=== PATIENT | female | born 1995 | race Caucasian/White ===

== ENCOUNTER → 2018-03-01 | Outpatient (CLI) | payer MEDICAID ==
[~2018-03-01] MED LIST: ACET325T38 PO; CLN150C PO; DIPH25TA82 PO; FAMO20TA5 PO; FERR325C PO; Ibuprofen PO; MEDR150D8 IM; METR500T PO; Mupirocin TOP; ONDA-42 SL; OSLT75C PO; PRE NATAL VIT; [UNRECOGNIZED DRUG - CODE] PO
--- NOTE | 2018-03-01 17:18 | Diagnostic Imaging Report ---
PROCEDURE: US OB SINGLE FETUS <14 WKS. TECHNIQUE: Multiple real-time grayscale images were obtained over the gravid uterus in various projections. INDICATION: Uncertain dates COMPARISON: There are no prior studies available for comparison. There is a gestational sac within the uterus containing a single live fetus. heart motion was noted and a rate of 167 bpm was recorded. The crown-rump length suggested the estimated gestational age is 10 weeks 1 day plus or minus one week. There were no obvious abnormalities identified. The amniotic fluid volume is within normal limits. At this time, it is not certain where the placenta will develop. There is no pelvic mass or free fluid collection identified. Neither ovary was visualized. IMPRESSION: 1. There is a single live fetus approximately 10 weeks 1 day gestation plus or minus one week. The EDC is 09/26/2018. 2. There were no obvious abnormalities identified. If a more sensitive evaluation of anatomy is desired, a followup exam in 8-10 weeks would be recommended. Dictated by: Dictated on workstation # [id number]
== END ==
LOC: RAD 14:48
PROVIDERS: ATTEND Family Medicine
DX: Z34.81 Encounter for supervision of other normal pregnancy, first trimester (principal); Z3A.10 10 weeks gestation of pregnancy
CPT/HCPCS: 76801

== ENCOUNTER 2018-07-08 17:19 | Outpatient (CLI) | payer MEDICAID ==
[2018-07-08 17:35] VITALS: BP 124/72
--- NOTE | 2018-07-08 17:39 | NUR ---
MYRIAM MORROW presented to unit via ambulation from ED, accompanied by s/o and son, with c/o fainting @ home around 1630 today. Pt to bed. EFVITALY and SANDRAO applied, VS taken. Pt. oriented to bed controls, call light, TV, heat, and A/C controls. Addendum: 07/08/18 at 1809 by JOANNE WHITTINGTON RN pt reports passing out @ home, hitting back, buttocks and head. denies hitting abd. s/o reports "watching her hit her head a little bit". pt was making lunch when fainting spell occurred. Addendum: 07/08/18 at 181 by JOANNE WHITTINGTON RN correction to admission time: pt presented to OB @ 5683.
--- NOTE | 2018-07-08 17:46 | NUR ---
on [facility] unit. update given on pt's presenting c/o's. orders received to d/c to patient to ER after monitor tracing appropriate for 28 4/7 weeks gestation obtained.
[2018-07-08 17:55] VITALS: BP 14/64
[2018-07-08 18:10] VITALS: BP 14/64
--- NOTE | 2018-07-08 18:11 | NUR ---
this RN discussed with pt rising up from sitting position slowly and eating frequent small meals. pt reports not eating lunch today & occasionally gets "dizzy" when standing up from sitting position.
--- NOTE | 2018-07-08 18:20 | NUR ---
monitors dc'd. pt dismissed to ED for evaluation. pt ambulated with s.o. and son @ side. pt stable upon dismissal.
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
--- NOTE | 2018-07-25 15:41 | Physician Query-Final Dx ---
KAREN BARNES 07/25/18 1541: Final Diagnosis Give Final Diagnosis Please give Final Diagnosis FRED HURTADO MD 07/26/18 1534: Final Diagnosis Give Final Diagnosis Fall in . KAREN BARNES Jul 25, 2018 15:41 FRED HURTADO MD Jul 26, 2018 15:34
== END 2018-07-08 18:20 | disposition home or self-care (01) ==
LOC: WSo 17:19 → LDRP 17:19 → WSo 18:20
PROVIDERS: ATTEND Family Medicine
DX: Z04.3 Encounter for examination and observation following other accident (principal)
CPT/HCPCS: 99212

== ENCOUNTER 2018-07-08 18:25 | Emergency (ER) | payer BC, MEDICAID ==
[~2018-07-08] VITALS: Ht 142.2 cm; Wt 68.0 kg
--- OUTSIDE RECORDS SUMMARY | 2018-07-08 18:31 | XMS REPORT ---
Author Author ROBERTO FIGUEROA [facility] Address [address] [place] [address] Care Team Providers Care Sand Slinger Operator Name Role Phone ROBERTO FIGUEROA Unavailable PROBLEMS Type Condition ICD9-CM Code [id number] Code Onset Dates Condition Status SNOMED Code Problem Bipolar disorder, unspecified F31.9 Active [id number] ALLERGIES No Information ENCOUNTERS Encounter Location Date Diagnosis [facility] [id number] [place] [address] 28192- 4526 Apr, [facility] [id number] [place] [address] 49448- 9997 Apr, Second trimester Z34.92 and 19 weeks gestation of Z3A.19 [facility] [id number] [place] [address] 30584 -9981 Apr, Acute nasopharyngitis J00 and Sore throat J02.9 [facility] [id number] [place] [address] 89455- 5659 Apr, [facility] [id number] [place] [address] 16142- 7080 Apr, [facility] [id number] [place] [address] 40746- 8488 Apr, [facility] [id number] [place] [address] 81409- 0516 Feb, First trimester Z34.91 and 10 weeks gestation of Z3A.10 [facility] [id number] [place] [address] 13275- 2110 Jan, [facility] [id number] [place] [address] 52285- 8741 Jan, [place] [id number] [place] [address] 03191- 3767 17 Jan, 2018 Normal in multigravida Z34.80 and 9 weeks gestation of Z3A.09 [facility] [id number] [place] [address] 02992- 8624 07 Jan, 2018 [place] [address] 81993- 4906 05 Jan, 2018 Encounter for test, result unknown Z32.[address] 68397- 0622 September, History of fainting spells of unknown cause Z91.89 [place] [address] 88623- 1651 Aug, Yeast infection involving the vagina and surrounding area B37.3 ; Bipolar disorder, unspecified F31.9 and Trichomonas vaginalis infection A59.9 [facility] [facility] [id number] [place] [address] 87259- 3970 Jun, Bipolar disorder, unspecified F31.[address] 69281- 9508 Jun, Encounter for surveillance of injectable contraceptive Z30.42 and Bipolar disorder, unspecified F31.9 [id number] [place] [address] 46327- 4879 May, Encounter for Depo-Provera contraception Z30.42 [facility] [id number] [place] [address] 49910 -3807 Apr, Syncope, unspecified syncope type R55 [place] [id number] [place] [address] 92151- 3080 Mar, Bipolar disorder, unspecified F31.9 and High risk medication use Z79.899 [place] [address] 27762- 9840 Feb, [facility] [address] [place] [address] 91933- 0696 Feb, Encounter for Depo-Provera contraception Z30.42 [facility] [id number] [place] [address] 44205- 9585 Nov, Encounter for Depo-Provera contraception Z30.42 [facility] [address] 31791- 3551 September, [facility] [address] 17610- 2438 Aug, [facility] [address] 26892- 1177 Aug, Late period N92.6 ; STD exposure Z20.2 ; control counseling Z30.09 and Encounter for Depo-Provera contraception Z30.42 [facility] [id number] [place] [address] 82679 -2144 Jul, Body aches R52 ; Influenza A J10.1 ; Impacted cerumen of left ear H61.22 and Acute serous otitis media of left ear, recurrence not specified H65.02 [facility] [id number] [place] [address] 49168- 6173 May, [facility] [id number] [place] [address] 97706- 7431 Apr, Encounter for female control Z30.019 ; Encounter for Depo-Provera contraception Z30.42 and Well woman exam Z01.419 [facility] [id number] [place] [address] [id number] Feb, Dental examination Z01.20 [facility] [address] [id number] Feb, Dental caries K02.9 [facility] [id number] [place] [address] [id number] Feb, Dental examination Z01.20 [facility] [id number] [place] [address] 40007 -5798 Dec, Bilateral impacted cerumen H61.23 ; Dizziness R42 and Nausea R11.0 [facility] [id number] [place] [address] 18028- 9786 Dec, Encounter for Depo-Provera contraception Z30.42 [facility] [address] 13194- 9414 Oct, Bipolar affective disorder, currently depressed, moderate F31.32 [place] [address] 46705- 9423 September, Bipolar disorder, unspecified F31.9 [place] [id number] [place] [address] 76713- 1265 September, Bipolar disorder, unspecified F31.9 [place] [address] 38174- 1556 September, Bipolar disorder, unspecified F31.9 [place] [id number] [place] [address] 52934- 0483 September, Encounter for Depo-Provera contraception Z30.42 [facility] [id number] [place] [address] 20383- 5567 Aug, Bipolar disorder, unspecified F31.9 [place] [id number] [place] [address] 16114- 7025 Jun, Encounter for Depo-Provera contraception Z30.42 [place] [facility] [id number] [place] [address] 67504- 0531 Apr, URI (upper respiratory infection) J06.9 [facility] [id number] [place] [address] 56527- 2068 Mar, Encounter for Depo-Provera contraception Z30.42 [place] [address] 35553- 8917 Mar, [facility] [id number] [place] [address] 406095- 6013 Mar, Generalized anxiety disorder F41.1 and Major depressive disorder, recurrent episode, moderate F33.1 [facility] [id number] [place] [address] 536035- 5261 Jan, Esophageal reflux 530.81 ; Depression 311 and Anxiety 300.00 [facility] [id number] [place] [address] 03598- 5717 Dec, Depo-Provera contraceptive status V25.49 [facility] [id number] [place] [address] 814262- 3092 Dec, test negative V72.41 [facility] [id number] [place] [address] 47467- 8692 Oct, [facility] [id number] [place] [address] 26033- 3901 Oct, [facility] [id number] [place] [address] 35294- 6367 September, [facility] [id number] [place] [address] 48933- 4937 September, [facility] [id number] [place] [address] 34026- 5405 September, [facility] [id number] [place] [address] 03717- 0590 September, [facility] [address] [place] [address] 42604- 0174 September, [facility] [id number] [place] [address] 26529- 8881 September, [facility] [id number] [place] [address] 588979- 8657 September, [facility] [id number] [place] [address] 17436- 5240 September, Other general counseling and advice for contraceptive management V25.09 [facility] [address] [id number], [place] [address]- 2177 September, [facility] [address] [id number], [place] [address]- 1946 September, [facility] [address] [facility] [id number], [place] [address]- 4853 September, [facility] [address] [id number], [place] [address]- 4777 September, [facility] [address] [facility] [id number][place] 9996 29 Aug, 2014 [facility] [address] [facility] [id number], [place] [address]- 1839 28 Aug, 2014 [facility] [address] [id number], [place] [address]- 8043 14 Aug, 2014 [facility] [address] [facility] [id number], [place] [address]- 0934 Aug, [facility] [address] [facility] [id number], [place] [address]- 5108 27 Jul, 2014 [facility] [address] [facility] [id number], [place] [address]- 4986 27 Jul, 2014 [facility] [address] [facility] [id number], [place] [address]- 8704 20 Jul, 2014 [facility] [address] [id number], [place] [address]- 4786 19 Jul, 2014 [facility] [address] [facility] [id number], [place] [address]- 3424 19 Jul, 2014 [facility] [address] [facility] [id number][place] 8121 18 Jul, 2014 [facility] [address] [facility] [id number] 7431 Jul, [facility] [place] [facility] [address] [id number] [place] [address]- 9891 Jun, 2014 [facility] [place] [facility] [address] [id number] [place] [address]- 5956 Jun, 2014 [facility] [place] [facility] [address] [id number] [place] [address]- 0532 Jun, 2014 [facility] [place] [facility] [address] [id number] [place] [address]- 4653 Jun, 2014 [facility] [place] [facility] [address] [id number] [place] [address]- 5283 Jun, [facility] [place] [facility] [address] [id number] [place] [address]- 3508 Jun, [facility] [place] [facility] [address] [facility] [id number] [place] [address]- 9629 May, [facility] [place] [facility] [address] [id number] [place] [address]- 5916 May, [facility] [place] [facility] [address] [id number] [place] [address]- 1185 Apr, [facility] [place] [facility] [address] [id number] [place] [address]- 5143 Apr, [facility] [place] [facility] [address] [facility] [id number] [place] [address]- 7437 Apr, [facility] [place] [facility] [address] [id number] [place] [address]- 5591 Apr, [facility] [place] [facility] [address] [id number] [place] [address]- 8821 Apr, [facility] [place] [facility] [address] [facility] [id number] [place] [address]- 5596 Apr, [facility] [place] [facility] [address] [facility] [id number] [place] [address]- 2454 Mar, [facility] [place] [facility] [address] [id number] [place] [address]- 6190 Mar, [facility] [place] [facility] [address] [id number] [place] [address]- 5919 Mar, [facility] [place] [facility] [address] [id number] [place] [address]- 0857 Mar, [facility] [place] [facility] [address] [id number] [place] [address]- 3354 Mar, [facility] [place] [facility] [address] [id number] [place] [address]- 5697 Feb, [facility] [place] [facility] [address] [id number] [place] [address]- 1312 Feb, [facility] [place] [facility] [address] [id number] [place] [address]- 5395 Feb, [facility] [place] [facility] [address] [id number] [place] [address]- 6936 Feb, [facility] [place] [facility] [address] [id number] [place] [address]- 5446 Feb, [facility] [place] [facility] [address] [id number] [place] [address]- 3742 16 Feb, 2014 [facility] [place] [facility] [address] [id number] [place] [address]- 9148 16 Feb, 2014 [facility] [place] [facility] [address] [id number] [place] [address]- 2243 16 Feb, 2014 [facility] [place] [facility] [address] [id number] [place] [address]- 8932 05 Sep, 2013 [facility] [place] [facility] [address] [id number] [place] [address]- 8021 05 Sep, 2013 [facility] [place] [facility] [address] [id number] [place] [address]- 2275 05 Sep, 2013 [facility] [place] [facility] [address] [id number] [place] [address]- 3314 Jan, [facility] [place] [facility] [address] [id number] [place] [address]- 1315 Jan, [facility] [place] [facility] [address] [id number] [place] [address]- 0686 Jan, [facility] [place] [facility] [address] [id number] [place] [address]- 7396 Jan, [facility] [place] [facility] [address] [id number] [place] [address]- 7242 Jan, [facility] [place] [facility] [address] [id number] [place] [address]- 6754 Dec, [facility] [place] [facility] [address] [id number] [place] [address]- 7997 Dec, [facility] [place] [facility] [address] [id number] [place] [address]- 3315 Dec, [facility] [place] [facility] [address] [id number] [place] [address]- 9601 Dec, [facility] [place] [facility] [address] [id number] [place] [address]- 6123 Dec, [facility] [place] [facility] [address] [id number] [place] [address]- 0301 Dec, [facility] [place] [facility] [address] [id number] [place] [address]- 6793 Dec, [facility] [place] [facility] [address] [id number] [place] [address]- 4756 Dec, [facility] [place] [facility] [address] [id number] [place] [address]- 6567 Dec, [facility] [place] [facility] [address] [id number] [place] [address]- 2603 Dec, [facility] [place] [facility] [address] [id number] [place] [address]- 4314 Dec, [facility] [place] [facility] [address] [id number] [place] [address]- 6323 Dec, [facility] [place] [facility] [address] [id number] [place] [address]- 6332 Dec, [facility] [place] [facility] [address] [id number] [place] [address]- 9240 Dec, [facility] [place] [facility] [address] [id number] [place] [address]- 9204 Dec, [facility] [place] [facility] [address] [id number] [place] [address]- 9868 Dec, [facility] [place] [facility] [address] [id number] [place] [address]- 6229 Dec, [facility] [place] [facility] [address] [id number] [place] [address]- 1593 Nov, [facility] [place] [facility] [address] [id number] [place] [address]- 3933 Nov, [facility] [place] [facility] [address] [id number] [place] [address]- 9869 Nov, [facility] [place] [facility] [address] [id number] [place] [address]- 5611 Nov, [facility] [place] [facility] [address] [id number] [place] [address]- 8283 Nov, [facility] [place] [facility] [address] [id number] [place] [address]- 2977 Nov, [facility] [place] [facility] [address] [id number] [place] [address]- 4929 Nov, [facility] [place] [facility] [address] [id number] [place] [address]- 0443 Nov, [facility] [place] [facility] [address] [id number] [place] [address]- 3036 Nov, [facility] [place] [facility] [address] [id number] [place] [address]- 7099 Oct, [facility] [place] [facility] [address] [id number] [place] [address]- 1678 30 Oct, 2013 [facility] [place] [facility] [address] [id number] [place] [address]- 6792 Oct, [facility] [place] [facility] [address] [id number] [place] [address]- 3832 Oct, [facility] [place] [facility] [address] [id number] [place] [address]- 8502 Oct, [facility] [place] [facility] [address] [id number] [place] [address]- 4862 Oct, [facility] [place] [facility] [address] [id number] [place] [address]- 6316 Oct, [facility] [place] [facility] [address] [id number] [place] [address]- 4998 Oct, [facility] [place] [facility] [address] [id number] [place] [address]- 5766 Oct, [facility] [place] [facility] [address] [id number] [place] [address]- 7922 Oct, [facility] [place] [facility] [address] [id number] [place] [address]- 5829 September, [facility] [place] [facility] [address] [id number] [place] [address]- 4458 September, [facility] [place] [facility] [address] [id number] [place] [address]- 6000 September, [facility] [place] [facility] [address] [id number] [place] [address]- 0960 September, [facility] [place] [facility] [address] [id number] [place] [address]- 2441 Aug, [facility] [place] [facility] [address] [id number] [place] [address]- 4097 Aug, [facility] [place] [facility] [address] [id number] [place] [address]- 4253 Aug, [facility] [place] [facility] [address] [id number] [place] [address]- 3303 Aug, [facility] [place] [facility] [address] [id number] [place] [address]- 1868 Aug, [facility] [place] [facility] [address] [id number] [place] [address]- 2809 Aug, [facility] [place] [facility] [address] [id number] [place] [address]- 1762 Aug, [facility] [place] [facility] [address] [id number] [place] [address]- 4204 Aug, [facility] [place] [facility] [address] [id number] [place] [address]- 0696 Aug, [facility] [place] [facility] [address] [id number] [place] [address]- 4329 Aug, [facility] [place] [facility] [address] [id number] [place] [address]- 4448 Aug, [facility] [place] [facility] [address] [id number] [place] [address]- 9023 Jul, [facility] [place] [facility] [address] [id number] [place] [address]- 7927 Jul, [facility] [place] [facility] [address] [id number] [place] [address]- 1918 Jul, [facility] [place] [facility] [address] [id number] [place] [address]- 9627 Jul, [facility] [place] [facility] [address] [id number] [place] [address]- 1715 Jul, [facility] [place] [facility] [address] [id number] [place] [address]- 2693 Jul, [facility] [place] [facility] [address] [id number] [place] [address]- 6719 Jun, [facility] [place] [facility] [address] [id number] [place] [address]- 5740 Jun, [facility] [place] [facility] [address] [id number] [place] [address]- 4449 Jun, 2013 [facility] [place] [facility] [address] [id number] [place] [address]- 2546 Jun, 2013 [facility] [place] [facility] [address] [id number] [place] [address]- 3794 Jun, 2013 [facility] [place] [facility] [address] [id number] [place] [address]- 5855 Jun, [facility] [place] [facility] [address] [facility] [id number] [place] [address]- 1659 Jun, [facility] [place] [facility] [address] [facility] [id number] [place] [address]- 0844 Jun, [facility] [place] [facility] [address] [facility] [id number] [place] [address]- 1977 Jun, 2013 [facility] [place] [facility] [address] [facility] [id number] [place] [address]- 1591 Jun, [facility] [place] [facility] [address] [facility] [id number] [place] [address]- 0955 Jun, [facility] [place] [facility] [address] [facility] [id number] [place] [address]- 7706 Jun, [facility] [place] [facility] [address] [facility] [id number], [place] [address]- 8875 Jun, [facility] [place] [facility] [address] [facility] [id number] [place] [address]- 4041 Jun, [facility] [place] [facility] [address] [facility] [id number] [place] [address]- 2738 Jun, [facility] [place] [facility] [address] [facility] [id number], [place] [address]- 7483 Jun, 2013 [facility] [place] [facility] [address] [facility] [id number], [place] [address]- 9087 Jun, [facility] [place] [facility] [address] [id number] [place] [address] Jun, [facility] [place] [facility] [address] [id number] [place] [address] Jun, [facility] [place] [facility] [address] [id number] [place] [address] Jun, [facility] [place] [facility] [address] [id number] [place] [address] Jun, [facility] [place] [facility] [address] [id number] [place] [address] Jun, [facility] [place] [facility] [address] [id number] [place] [address] May, [facility] [place] [facility] [address] [id number] [place] [address] May, [facility] [place] [facility] [address] [id number] [place] [address] May, [facility] [place] [facility] [address] [id number] [place] [address] May, [facility] [place] [facility] [address] [id number] [place] [address] May, [facility] [place] [facility] [address] [id number] [place] [address] May, [facility] [place] [facility] [address] [id number] [place] [address] May, [facility] [place] [facility] [address] [id number] [place] [address] May, [facility] [place] [facility] [address] [id number] [place] [address] May, [facility] [place] [facility] [address] [id number] [place] [address] May, [facility] [place] [facility] [address] [id number] [place] [address] 14 May, 2013 [facility] [address] [id number] [place] [address] May, [facility] [address] [id number] [place] [address] May, [facility] [address] [id number] [place] [address] May, [facility] [address] [id number] [place] [address] Apr, [facility] [address] [id number] [place] [address] Apr, [facility] [address] [id number] [place] [address] Apr, [facility] [address] [id number] [place] [address] Apr, [facility] [address] [id number] [place] [address] Apr, [facility] [address] [id number] [place] [address] Apr, [facility] [address] [id number] [place] [address] Apr, [facility] [address] [id number] [place] [address]661 Apr, [facility] [place] [facility] [address] [id number] [place] [address] Mar, [facility] [place] [facility] [address] [id number] [place] [address] Mar, [facility] [address] [id number] [place] [address] Mar, [facility] [place] [facility] [address] [id number], [place] [address] Mar, [facility] [place] [facility] [address] [id number] [place] [address] Feb, [facility] [place] [facility] [address] [id number], [place] [address] Feb, [facility] [place] [facility] [address] [id number] [place] [address] Feb, [facility] [place] [facility] [address] [id number], [place] [address] Feb, [facility] [place] [facility] [address] [id number] [place] [address] Feb, [facility] [place] [facility] [address] [id number] [place] [address] Feb, [facility] [place] [facility] [address] [facility] [id number], [place] [address] Feb, [facility] [place] [facility] [address] [id number], [place] [address] Feb, [facility] [place] [facility] [address] [id number], [place] [address] Jan, [facility] [place] [facility] [address] [facility] [id number], [place] [address] Oct, [facility] [place] [facility] [address] [id number], [place] [address] September, [facility] [place] [facility] [address] [id number], [place] [address] Jun, [facility] [place] [facility] [address] [id number], [place] [address] Jun, [facility] [place] [facility] [address] [facility] [id number], [place] [address] Jun, [facility] [place] [facility] [address] [facility] [id number], [place] [address] Jun, [facility] [place] [facility] [address] [id number] [place] [address] May, [facility] [place] [facility] [address] [id number] [place] [address] Apr, [facility] [place] [facility] [address] [id number] [place] [address] Apr, [facility] [place] [facility] [address] [id number] [place] [address] Apr, [facility] [place] [facility] [address] [id number] [place] [address] Apr, [facility] [place] [facility] [address] [id number] [place] [address] Mar, [facility] [place] [facility] [address] [id number] [place] [address] Mar, [facility] [place] [facility] [address] [id number] [place] [address] Jan, [facility] [place] [facility] [address] [id number] [place] [address] Dec, [facility] [place] [facility] [address] [id number] [place] [address] Dec, [facility] [place] [facility] [address] [id number] [place] [address] Dec, [facility] [place] [facility] [address] [id number] [place] [address] Dec, [facility] [place] [facility] [address] [id number] [place] [address] Nov, [facility] [place] [facility] [address] [id number] [place] [address] Nov, [facility] [place] [facility] [address] [id number] [place] [address] Nov, [facility] [place] [facility] [address] [id number] [place] [address] Nov, [facility] [address] [id number] [place] [address] Aug, [facility] [place] [facility] [address] [facility] [id number] [place] [address] Aug, [facility] [place] [facility] [address] [id number] [address] Jul, [facility] [place] [facility] [address] [facility] [id number] [place] [address] 1339 Jul, [facility] [place] [facility] [address] [facility] [id number] [place] [address] 8780 Jul, [facility] [place] [facility] [address] [facility] [id number] [place] [address] Jul, [facility] [place] [facility] [id number] [place] [address] Jun, [facility] [place] [facility] [address] [facility] [id number] [place] [address] Jun, [facility] [place] [facility] [address] [id number] [place] [address] 14 Jun, 2011 [facility] [place] [facility] [address] [id number] [place] [address] Jun, [facility] [place] [facility] [id number] [address] Jun, [facility] [place] [facility] [address] [facility] [id number], [place] [address] Jun, [facility] [place] [facility] [address] [id number] [place] [address]- [address] 04 Jun, 2011 [facility] [place] [facility] [address] [facility] [id number] [place] [address] Jun, [facility] [place] [facility] [id number] [address] Jun, [facility] [place] [facility] [address] [id number] [place] [address]27 May, [facility] [place] [facility] [address] [id number] [place] [address] May, [facility] [place] [facility] [address] [id number] [place] [address] May, [facility] [place] [facility] [address] [id number] [place] [address] 5047 May, [facility] [place] [facility] [address] [id number] [place] [address] 8748 May, [facility] [place] [facility] [address] [id number] [place] [address] 68[address] Mar, [facility] [place] [facility] [address] [id number] [place] [address] 6328 Mar, [facility] [place] [facility] [address] [id number] [place] [address] Mar, [facility] [place] [facility] [address] [id number] [place] [address] Mar, [facility] [place] [facility] [address] [id number] [place] [address] Mar, [facility] [place] [facility] [address] [id number] [place] [address] 8730 Feb, [facility] [place] [facility] [address] [id number] [place] [address]753 Feb, [facility] [place] [facility] [address] [id number] [place] [address] 9351 Dec, [facility] [place] [facility] [address] [id number] [place] [address] 9165 Apr, [facility] [place] [facility] [address] [id number] [place] [address]- 7870 Apr, [facility] [place] [facility] [address] [id number] [place] [address]- [address] 03 Apr, 2010 [facility] [address] [id number] [place] [address] 29 Feb, 2010 [facility] [place] [facility] [address] [id number], [place] [address] 11 Feb, 2010 [facility] [place] [facility] [address] [id number] [place] [address]- 4481 11 Jul, 2009 [facility] [place] [facility] [address] [id number], [place] [address] 15 Jun, 2009 [facility] [place] [facility] [address] [id number] [place] [address] 1764 May, [facility] [place] [facility] [address] [id number], [place] [address] Apr, [facility] [place] [facility] [address] [id number], [place] [address] Apr, [facility] [place] [facility] [address] [id number], [place] [address] Apr, [facility] [address] [id number], [place] [address] Mar, [facility] [place] [facility] [address] [id number], [place] [address] Jul, [facility] [place] [facility] [address] [id number], [place] [address] 16 Jun, 2008 [facility] [place] [facility] [address] [id number], [place] [address] 15 Jan, 2008 [facility] [place] [facility] [address] [id number], [place] [address] 10 Oct, 2007 [facility] [place] [facility] [address] [id number], [place] [address] 13 Sep, 2007 [facility] [place] [facility] [address] [id number], [place] [address] 11 Nov, 2006 [facility] [place] [facility] [address] [facility] [id number] [place] [address] September, [facility] [address] [facility] [id number] [place] [address]- [address] Dec, [facility] [address] [facility] [id number] [place] [address]- [address] Mar, IMMUNIZATIONS No Known Immunizations SOCIAL HISTORY Never Assessed REASON FOR VISIT OB 4wk f/u, ob urine dip in second trimester-awoods PLAN OF CARE Activity Details Follow Up 4 Weeks Reason: VITAL SIGNS Height 59 in 2018-05-08 Weight 140.7 lbs 2018-05-08 Temperature 98.7 degrees Fahrenheit 2018-05-08 Heart Rate 84 bpm 2018-05-08 Respiratory Rate 20 2018-05-08 BMI 28.418 kg/m2 2018-05-08 Blood pressure systolic 108 mmHg 2018-05-08 Blood pressure diastolic 70 mmHg 2018-05-08 MEDICATIONS Medication Instructions Dosage Frequency Start Date End Date Duration Status Active RESULTS Name Result Date Reference Range UA OB DIP (IN HOUSE) 2018-05-08 Glucose negative Protein trace PROCEDURES Procedure Date Ordered Result Body Site URINE-NO MICRO May 08, 2018 INSTRUCTIONS MEDICATIONS ADMINISTERED No Known Medications MEDICAL (GENERAL) HISTORY Type Description Date Medical History depression Medical History anxiety disorder Medical History Major depressive disorder, recurrent episode, moderate Medical History Suicide and self-inflicted injury by cutting and piercing instrument Medical History Suicide and self-inflicted injury by cutting and piercing instrument Medical History Herpes simplex without mention of complication Surgical History tonsillectomy age 3 Hospitalization History cellulitis of lip 06/2014
--- OUTSIDE RECORDS SUMMARY | 2018-07-08 18:31 | XMS REPORT ---
Author Author ROBERTO FIGUEROA [facility] Address [address] [place] [address] Care Team Providers Care Medical Artist Name Role Phone ROBERTO FIGUEROA Unavailable PROBLEMS Type Condition ICD9-CM Code [id number] Code Onset Dates Condition Status SNOMED Code Problem Bipolar disorder, unspecified F31.9 Active [id number] ALLERGIES No Information ENCOUNTERS Encounter Location Date Diagnosis [facility] [id number] [place] [address] 27583- 8157 Apr, Second trimester Z34.92 and 19 weeks gestation of Z3A.19 [facility] [id number] [place] [address] 64455- 7810 18 Apr, 2018 Second trimester Z34.92 and 19 weeks gestation of Z3A.19 [facility] [id number] [place] [address] 17242 -0618 Apr, Acute nasopharyngitis J00 and Sore throat J02.9 [facility] [id number] [place] [address] 07243- 6256 Apr, [facility] [id number] [place] [address] 66447- 0879 Apr, [facility] [id number] [place] [address] 13266- 4656 Apr, [facility] [id number] [place] [address] 80424- 1272 Feb, First trimester Z34.91 and 10 weeks gestation of Z3A.10 [facility] [id number] [place] [address] 18750- 8616 Jan, [facility] [id number] [place] [address] 67738- 5024 Jan, [facility] [address] 39749- 9337 17 Jan, 2018 Normal in multigravida Z34.80 and 9 weeks gestation of Z3A.09 [facility] [address] 64467- 4440 07 Jan, 2018 [facility] [address] 46799- 0751 05 Jan, 2018 Encounter for test, result unknown Z32.[address] 39756- 5630 September, History of fainting spells of unknown cause Z91.89 [facility] [address] 32231- 5588 Aug, Yeast infection involving the vagina and surrounding area B37.3 ; Bipolar disorder, unspecified F31.9 and Trichomonas vaginalis infection A59.9 [facility] [address] 20645- 0953 Jun, Bipolar disorder, unspecified F31.9 [facility] [id number] [place] [address] 47788- 3972 Jun, Encounter for surveillance of injectable contraceptive Z30.42 and Bipolar disorder, unspecified F31.9 [facility] [id number] [place] [address] 24968- 8204 May, Encounter for Depo-Provera contraception Z30.42 [facility] [id number] [place] [address] 49305 -7405 Apr, Syncope, unspecified syncope type R55 [facility] [id number] [place] [address] 10705- 7444 Mar, Bipolar disorder, unspecified F31.9 and High risk medication use Z79.899 [facility] [address] [address] 2356 Feb, [facility] [id number] [place] [address] 92905- 0578 Feb, Encounter for Depo-Provera contraception Z30.42 [facility] [id number] [place] [address] 79581- 1412 Nov, Encounter for Depo-Provera contraception Z30.42 [facility] [id number] [place] [address] 08779- 7642 September, [facility] [id number] [place] [address] 10564- 0037 Aug, [facility] [id number] [place] [address] 54310- 0955 Aug, Late period N92.6 ; STD exposure Z20.2 ; control counseling Z30.09 and Encounter for Depo-Provera contraception Z30.42 [facility] [id number] [place] [address] 13810 -1792 Jul, Body aches R52 ; Influenza A J10.1 ; Impacted cerumen of left ear H61.22 and Acute serous otitis media of left ear, recurrence not specified H65.02 [facility] [id number] [place] [address] 08790- 8009 May, [facility] [id number] [place] [address] 58810- 6612 Apr, Encounter for female control Z30.019 ; Encounter for Depo-Provera contraception Z30.42 and Well woman exam Z01.419 [facility] [id number] [place] [address] [id number] Feb, Dental examination Z01.20 [facility] [id number] [place] [address] [id number] Feb, 2016 Dental caries K02.9 [facility] [address] [id number] Feb, Dental examination Z01.20 [facility] [id number] [place] [address] 21958 -3160 Dec, Bilateral impacted cerumen H61.23 ; Dizziness R42 and Nausea R11.0 [facility] [id number] [place] [address] 97056- 5943 Dec, Encounter for Depo-Provera contraception Z30.42 [facility] [id number] [place] [address] 76371- 9974 Oct, Bipolar affective disorder, currently depressed, moderate F31.32 [facility] [address] 22684- 1109 September, Bipolar disorder, unspecified F31.9 [facility] [id number] [place] [address] 31083- 8400 September, Bipolar disorder, unspecified F31.9 [facility] [id number] [place] [address] 45842- 6015 September, Bipolar disorder, unspecified F31.9 [facility] [id number] [place] [address] 80115- 9825 September, Encounter for Depo-Provera contraception Z30.42 [facility] [id number] [place] [address] 01410- 1228 Aug, Bipolar disorder, unspecified F31.9 [facility] [id number] [place] [address] 81295- 1621 Jun, Encounter for Depo-Provera contraception Z30.42 [facility] [id number] [place] [address] 74142- 0599 Apr, URI (upper respiratory infection) J06.9 [facility] [id number] [place] [address] 60970- 1946 Mar, Encounter for Depo-Provera contraception Z30.42 [facility] [id number] [address]- 1804 Mar, [facility] [id number] [place] [address] 13268- 1938 Mar, Generalized anxiety disorder F41.1 and Major depressive disorder, recurrent episode, moderate F33.1 [facility] [id number] [place] [address] 92245- 7669 Jan, Esophageal reflux 530.81 ; Depression 311 and Anxiety 300.00 [facility] [id number] [place] [address] 60808- 1077 Dec, Depo-Provera contraceptive status V25.49 [facility] [id number] [place] [address] 57785- 9083 Dec, test negative V72.41 [facility] [id number] [place] [address] 37071- 3551 Oct, [facility] [id number] [place] [address] 33907- 8121 Oct, [facility] [id number] [place] [address] 36879- 0135 September, [facility] [id number] [place] [address] 90542- 5458 September, [facility] [id number] [place] [address] 47390- 9991 September, [facility] [id number] [place] [address] 78854- 7681 September, [facility] [id number] [place] [address] 40871- 7488 September, [facility] [id number] [place] [address] 13454- 4172 September, [facility] [id number] [place] [address] 64093- 6961 September, [facility] [address] [id number] [address]- 7066 September, Other general counseling and advice for contraceptive management V25.09 [facility] [address] [id number] [place] [address]- 9655 September, [facility] [address] [facility] [id number] [place] [address]- 7197 September, [facility] [address] [id number], [place] [address]- 7974 September, [facility] [address] [id number] [place] [address]- 9306 September, [facility] [address] [facility] [id number], [place] [address]- 6801 29 Aug, 2014 [facility] [address] [facility] [id number] [place] [address]- 9967 28 Aug, 2014 [facility] [address] [facility] [id number], [place] [address]- 6981 14 Aug, 2014 [facility] [address] [id number] [place] [address]- 7678 Aug, [facility] [address] [facility] [id number], [place] [address]- 0833 27 Jul, 2014 [facility] [address] [id number], [place] [address]- 9675 27 Jul, 2014 [facility] [address] [id number], [place] [address]- 4173 20 Jul, 2014 [facility] [address] [id number] [place] [address]- 6399 19 Jul, 2014 [facility] [address] [facility] [id number], [place] [address]- 3592 19 Jul, 2014 [facility] [address] [facility] [id number] [place] [address]- 9742 18 Jul, 2014 [facility] [address] [id number] [place] [address]- 9577 Jul, [facility] [place] [facility] [address] [id number] [place] [address]- 3466 Jun, 2014 [facility] [place] [facility] [address] [id number] [place] [address]- 4956 16 Jun, 2014 [facility] [place] [facility] [address] [id number] [place] [address]- 2736 Jun, 2014 [facility] [place] [facility] [address] [id number] [place] [address]- 3729 Jun, 2014 [facility] [place] [facility] [address] [id number] [place] [address]- 8286 Jun, 2014 [facility] [place] [facility] [address] [id number] [place] [address]- 0910 Jun, 2014 [facility] [place] [facility] [address] [facility] [id number] [place] [address]- 9827 May, [facility] [place] [facility] [address] [id number] [place] [address]- 2826 May, [facility] [place] [facility] [address] [facility] [id number] [place] [address]- 6160 Apr, [facility] [place] [facility] [address] [facility] [id number] [place] 5493 Apr, [facility] [place] [facility] [address] [id number] [place] [address]- 3176 Apr, [facility] [place] [facility] [address] [id number] [place] [address] 2547 Apr, [facility] [place] [facility] [address] [id number] [place] [address]- 7606 Apr, [facility] [place] [facility] [address] [facility] [id number] [place] [address]- 9876 Apr, [facility] [place] [facility] [address] [id number] [place] [address]- 7976 Mar, [facility] [place] [facility] [address] [id number] [place] [address]- 4420 Mar, [facility] [place] [facility] [address] [id number] [place] [address]- 9018 Mar, [facility] [place] [facility] [address] [id number] [place] [address]- 6657 Mar, [facility] [place] [facility] [address] [id number] [place] [address]- 0000 Mar, [facility] [place] [facility] [address] [id number] [place] [address]- 4808 Feb, [facility] [place] [facility] [address] [id number] [place] [address]- 1571 Feb, [facility] [place] [facility] [address] [id number] [place] [address]- 0691 Feb, [facility] [place] [facility] [address] [id number] [place] [address]- 6270 Feb, [facility] [place] [facility] [address] [id number] [place] [address]- 3006 Feb, [facility] [place] [facility] [address] [id number] [place] [address]- 5217 Feb, [facility] [place] [facility] [address] [id number], [place] [address]- 1492 Feb, [facility] [place] [facility] [address] [id number], [place] [address]- 9834 Feb, [facility] [place] [facility] [address] [id number] [place] [address]- 5816 Jan, [facility] [place] [facility] [address] [id number], [place] [address]- 6707 05 Jan, 2014 [facility] [place] [facility] [address] [id number], [place] [address]- 2840 05 Jan, 2014 [facility] [place] [facility] [address] [id number] [place] [address]- 8213 05 Jan, 2013 [facility] [place] [facility] [address] [id number] [place] [address]- 9426 02 Jan, 2013 [facility] [place] [facility] [address] [id number] [place] [address]- 6686 Jan, 2013 [facility] [place] [facility] [address] [id number] [place] [address]- 5036 Jan, 2013 [facility] [place] [facility] [address] [id number] [place] [address]- 4781 Jan, [facility] [place] [facility] [address] [id number] [place] [address]- 8161 Dec, [facility] [place] [facility] [address] [id number] [place] [address]- 8871 Dec, [facility] [place] [facility] [address] [id number] [place] [address]- 4359 Dec, [facility] [place] [facility] [address] [id number] [place] [address]- 5974 Dec, [facility] [place] [facility] [address] [id number] [place] [address]- 6588 Dec, [facility] [place] [facility] [address] [id number] [place] [address]- 0781 Dec, [facility] [place] [facility] [address] [id number] [place] [address]- 5264 Dec, [facility] [place] [facility] [address] [id number] [place] [address]- 2541 Dec, [facility] [place] [facility] [address] [id number] [place] [address]- 5695 Dec, [facility] [place] [facility] [address] [id number] [place] [address]- 3298 Dec, [facility] [place] [facility] [address] [id number] [place] [address]- 2773 Dec, [facility] [place] [facility] [address] [id number] [place] [address]- 3244 Dec, [facility] [place] [facility] [address] [id number] [place] [address]- 8273 Dec, [facility] [place] [facility] [address] [id number] [place] [address]- 2856 Dec, [facility] [place] [facility] [address] [id number] [place] [address]- 2467 Dec, [facility] [place] [facility] [address] [id number] [place] [address]- 6147 Dec, [facility] [place] [facility] [address] [id number] [place] [address]- 6489 Dec, [facility] [place] [facility] [address] [id number] [place] [address]- 9172 Nov, [facility] [place] [facility] [address] [id number] [place] [address]- 8098 Nov, [facility] [place] [facility] [address] [id number] [place] [address]- 8249 Nov, [facility] [place] [facility] [address] [id number] [place] [address]- 6129 Nov, [facility] [place] [facility] [address] [id number] [place] [address]- 0412 Nov, [facility] [place] [facility] [address] [id number] [place] [address]- 5841 Nov, [facility] [place] [facility] [address] [id number] [place] [address]- 5519 Nov, [facility] [place] [facility] [address] [id number] [place] [address]- 9828 Nov, [facility] [place] [facility] [address] [id number] [place] [address]- 6873 Nov, [facility] [place] [facility] [address] [id number] [place] [address]- 0737 Oct, [facility] [place] [facility] [address] [id number] [place] [address]- 8723 Oct, [facility] [place] [facility] [address] [id number] [place] [address]- 4270 Oct, [facility] [place] [facility] [address] [id number] [place] [address]- 1946 Oct, [facility] [place] [facility] [address] [id number] [place] [address]- 2616 Oct, [facility] [place] [facility] [address] [id number] [place] [address]- 5785 Oct, [facility] [place] [facility] [address] [id number] [place] [address]- 3442 Oct, [facility] [place] [facility] [address] [id number] [place] [address]- 9998 Oct, [facility] [place] [facility] [address] [id number] [place] [address]- 7119 Oct, [facility] [place] [facility] [address] [id number] [place] [address]- 2998 Oct, [facility] [place] [facility] [address] [id number] [place] [address]- 4946 September, [facility] [place] [facility] [address] [id number] [place] [address]- 6792 September, [facility] [place] [facility] [address] [id number] [place] [address]- 2535 September, [facility] [place] [facility] [address] [id number] [place] [address]- 6413 September, [facility] [place] [facility] [address] [id number] [place] [address]- 1567 Aug, [facility] [place] [facility] [address] [id number] [place] [address]- 0715 Aug, [facility] [place] [facility] [address] [id number] [place] [address]- 3800 Aug, [facility] [place] [facility] [address] [id number] [place] [address]- 7667 Aug, [facility] [place] [facility] [address] [id number] [place] [address]- 5547 Aug, [facility] [place] [facility] [address] [id number] [place] [address]- 9206 Aug, [facility] [place] [facility] [address] [id number] [place] [address]- 0646 Aug, [facility] [place] [facility] [address] [id number] [place] [address]- 3105 Aug, [facility] [place] [facility] [address] [id number] [place] [address]- 1347 Aug, [facility] [place] [facility] [address] [id number] [place] [address]- 6685 Aug, [facility] [address] [id number] [place] [address]- 2316 Aug, [facility] [place] [facility] [address] [id number] [place] [address]- 0219 24 Jul, 2013 [facility] [place] [facility] [address] [id number] [place] [address]- 7444 Jul, [facility] [place] [facility] [address] [id number] [place] [address]- 4776 Jul, [facility] [place] [facility] [address] [id number] [place] [address]- 6450 Jul, [facility] [place] [facility] [address] [id number] [place] [address]- 7382 Jul, [facility] [place] [facility] [address] [id number] [place] [address]- 8236 Jul, [facility] [place] [facility] [address] [id number] [place] 5389 Jun, [facility] [place] [facility] [address] [id number] [place] [address]- 0941 Jun, [facility] [place] [facility] [address] [id number] [place] [address]- 1231 Jun, [facility] [place] [facility] [address] [facility] [id number] [place] [address]- 2470 Jun, [facility] [place] [facility] [address] [id number] [place] [address]- 3679 Jun, 2013 [facility] [place] [facility] [address] [id number] [place] [address]- 7514 Jun, [facility] [place] [facility] [address] [facility] [id number] [place] [address]- 8968 Jun, [facility] [place] [facility] [address] [facility] [id number] [place] [address]- 3554 Jun, [facility] [place] [facility] [address] [facility] [id number] [place] [address]- 6820 Jun, [facility] [place] [facility] [address] [facility] [id number] [place] [address] Jun, [facility] [place] [facility] [address] [facility] [id number] [place] [address] Jun, [facility] [place] [facility] [address] [facility] [id number] [place] [address] Jun, 2013 [facility] [place] [facility] [address] [facility] [id number] [place] [address] Jun, [facility] [place] [facility] [address] [facility] [id number] [place] [address] Jun, [facility] [place] [facility] [address] [facility] [id number] [place] [address] Jun, [facility] [place] [facility] [address] [facility] [id number] [place] [address] Jun, [facility] [place] [facility] [address] [id number] [place] [address] Jun, [facility] [place] [facility] [address] [id number] [place] [address] Jun, [facility] [place] [facility] [address] [id number] [place] [address] Jun, [facility] [place] [facility] [address] [id number] [place] [address] Jun, [facility] [place] [facility] [address] [id number] [place] [address] Jun, [facility] [place] [facility] [address] [id number] [place] [address] Jun, [facility] [place] [facility] [address] [id number] [place] [address] May, [facility] [place] [facility] [address] [id number] [place] [address] May, [facility] [place] [facility] [address] [id number] [place] [address] May, [facility] [place] [facility] [address] [id number] [place] [address] May, [facility] [place] [facility] [address] [id number] [place] [address]70 May, [facility] [place] [facility] [address] [id number] [place] [address] May, [facility] [place] [facility] [address] [id number] [place] [address] May, [facility] [place] [facility] [address] [id number] [place] [address]- [address] May, [facility] [place] [facility] [address] [id number] [place] [address]- [address] May, [facility] [place] [facility] [address] [id number] [place] [address] 15 May, 2013 [facility] [address] [id number] [place] [address]- [address] 14 May, 2013 [facility] [place] [facility] [address] [id number] [place] [address] 14 May, 2013 [facility] [place] [facility] [address] [id number] [place] [address]47 May, [facility] [place] [facility] [address] [id number] [place] [address]- [address] May, [facility] [place] [facility] [address] [id number] [place] [address] Apr, [facility] [place] [facility] [address] [id number] [place] [address] Apr, [facility] [place] [facility] [address] [id number] [place] [address]- 68[address] Apr, [facility] [place] [facility] [address] [id number] [place] [address]- [address] Apr, [facility] [place] [facility] [address] [id number] [place] [address] 05 Apr, 2013 [facility] [place] [facility] [address] [facility] [id number] [place] [address]- [address] Apr, [facility] [place] [facility] [address] [id number] [place] [address] Apr, [facility] [place] [facility] [address] [id number] [place] [address] Apr, [facility] [place] [facility] [address] [id number] [place] [address] 89[address] Mar, [facility] [place] [facility] [address] [id number] [place] [address] Mar, [facility] [place] [facility] [address] [facility] [id number] [place] [address]- [address] Mar, [facility] [place] [facility] [address] [id number] [place] [address]- [address] Mar, [facility] [place] [facility] [address] [id number] [place] [address] Feb, [facility] [place] [facility] [address] [id number] [place] [address]- 4785 Feb, [facility] [place] [facility] [address] [id number] [place] [address]- 67[address] Feb, [facility] [place] [facility] [address] [id number] [place] [address]- [address]842 Feb, [facility] [place] [facility] [address] [id number] [place] [address]- [address] Feb, [facility] [place] [facility] [address] [id number] [place] [address]- [address] Feb, [facility] [place] [facility] [address] [id number] [place] [address]- [address] Feb, [facility] [place] [facility] [address] [id number] [place] [address]- 1726 Feb, [facility] [place] [facility] [address] [id number] [place] [address]- 5[address] Jan, [facility] [place] [facility] [address] [id number] [place] [address] 57[address] Oct, [facility] [place] [facility] [address] [id number], [place] [address] September, [facility] [place] [facility] [address] [id number] [place] [address]- 76[address] Jun, [facility] [place] [facility] [address] [id number] [place] [address]- 57[address] Jun, [facility] [place] [facility] [address] [id number], [place] [address]- [address] Jun, [facility] [place] [facility] [address] [id number], [place] [address] Jun, [facility] [place] [facility] [address] [id number] [place] [address] 6[address] May, [facility] [place] [facility] [address] [id number] [place] [address]- [address] Apr, [facility] [place] [facility] [address] [id number] [place] [address] Apr, [facility] [place] [facility] [address] [id number] [place] [address] Apr, [facility] [place] [facility] [address] [id number] [place] [address] Apr, [facility] [place] [facility] [address] [id number] [place] [address] Mar, [facility] [place] [facility] [address] [id number] [place] [address] Mar, [facility] [place] [facility] [address] [id number] [place] [address] Jan, [facility] [place] [facility] [address] [id number] [place] [address] Dec, [facility] [place] [facility] [address] [id number] [place] [address] Dec, [facility] [place] [facility] [address] [id number] [place] [address] Dec, [facility] [place] [facility] [address] [id number] [place] [address] Dec, [facility] [place] [facility] [address] [id number] [place] [address] Nov, [facility] [place] [facility] [address] [id number] [place] [address] Nov, [facility] [place] [facility] [address] [id number] [place] [address] Nov, [facility] [place] [facility] [address] [id number] [place] [address] Nov, [facility] [place] [facility] [address] [id number] [place] [address] Aug, [facility] [place] [facility] [address] [id number] [place] [address]66 Aug, [facility] [place] [facility] [address] [id number] [place] [address] Jul, [facility] [place] [facility] [address] [id number] [place] [address] Jul, [facility] [place] [facility] [address] [id number] [place] [address] 33[address] Jul, [facility] [place] [facility] [address] [facility] [id number] [place] [address] Jul, [facility] [place] [facility] [address] [id number] [place] [address] Jun, [facility] [place] [facility] [address] [id number] [place] [address] Jun, [facility] [place] [facility] [address] [id number] [place] [address] 14 Jun, 2011 [facility] [place] [facility] [address] [id number] [place] [address]- [address] Jun, [facility] [place] [facility] [address] [facility] [id number] [place] [address] 2748 Jun, [facility] [place] [facility] [address] [facility] [id number] [place] [address]- 4090 Jun, [facility] [place] [facility] [address] [id number] [place] [address]- [address] 04 Jun, 2011 [facility] [place] [facility] [address] [facility] [id number] [place] [address] 02 Jun, 2011 [facility] [place] [facility] [id number] [address] Jun, [facility] [place] [facility] [address] [id number] [place] [address] May, [facility] [place] [facility] [address] [id number] [place] [address]- 5866 May, [facility] [place] [facility] [address] [id number] [place] [address]- 1726 May, [facility] [place] [facility] [address] [id number] [place] [address]- 3431 May, [facility] [place] [facility] [address] [id number] [place] [address]- 0020 May, [facility] [place] [facility] [address] [id number] [place] [address] 97[address] Mar, [facility] [place] [facility] [address] [facility] [id number] [place] [address]- [address]329 Mar, [facility] [place] [facility] [address] [id number] [place] [address]- [address]656 Mar, [facility] [place] [facility] [address] [facility] [id number] [place] [address] 8030 Mar, [facility] [place] [facility] [address] [facility] [id number] [place] [address] 1371 Mar, [facility] [place] [facility] [address] [facility] [id number], [place] [address]- [address] Feb, [facility] [place] [facility] [address] [id number] [place] [address] 3769 Feb, [facility] [place] [facility] [address] [id number] [place] [address]- [address]245 Dec, [facility] [place] [facility] [address] [id number] [place] [address] 3717 Apr, [facility] [place] [facility] [address] [facility] [id number] [place] [address]- [address] Apr, [facility] [place] [facility] [address] [id number] [place] [address]- [address] 03 Apr, 2010 [facility] [address] [id number] [place] [address]- 8216 29 Feb, 2010 [facility] [place] [facility] [address] [id number] [place] [address]- 2406 Feb, [facility] [place] [facility] [address] [id number] [place] [address]- 9193 11 Jul, 2009 [facility] [place] [facility] [address] [id number] [place] [address]- 1297 15 Jun, 2009 [facility] [place] [facility] [address] [id number] [place] [address]- 1280 May, [facility] [place] [facility] [address] [facility] [id number] [place] [address]- 7237 Apr, [facility] [place] [facility] [address] [id number] [place] [address]- 5750 Apr, [facility] [address] [id number] [place] [address] 3049 Apr, [facility] [place] [facility] [address] [id number] [place] [address]- 8680 Mar, [facility] [place] [facility] [address] [facility] [id number] [place] [address]- 1785 Jul, [facility] [place] [facility] [address] [id number] [place] [address]- 1730 16 Jun, 2008 [facility] [place] [facility] [address] [id number] [place] [address]- 4689 15 Jan, 2008 [facility] [place] [facility] [address] [id number] [place] [address]- 1556 10 Oct, 2007 [facility] [place] [facility] [address] [id number] [place] [address]- 2546 13 Sep, 2007 [facility] [place] [facility] [address] [id number], [place] [address] Nov, [facility] [address] [facility] [id number] [place] [address] September, [facility] [address] [facility] [id number], [place] [address] Dec, [facility] [address] [facility] [id number] [place] [address] Mar, IMMUNIZATIONS No Known Immunizations SOCIAL HISTORY Never Assessed REASON FOR VISIT U/S OB >14 weeks walk-in ultrasound A.BOOKLESS RDWI RVT PLAN OF CARE Activity Details Pending Test Ultrasound : OB > 14 WEEKS COMPLETE (IN-HOUSE) VITAL SIGNS MEDICATIONS Unknown Medications RESULTS No Results PROCEDURES Procedure Date Ordered Result Body Site OB US >/=14 WKS, SNGL FETUS May 11, 2018 INSTRUCTIONS MEDICATIONS ADMINISTERED No Known Medications [...]
--- OUTSIDE RECORDS SUMMARY | 2018-07-08 18:32 | XMS REPORT ---
Author Author ROBERTO FIGUEROA [facility] Address [address] [place] [address] Care Team Providers Care Tool And Die Maker Name Role Phone ROBERTO FIGUEROA Unavailable PROBLEMS Type Condition ICD9-CM Code QLT86-JT Code Onset Dates Condition Status SNOMED Code Problem Bipolar disorder, unspecified F31.9 Active [id number] ALLERGIES No Information ENCOUNTERS Encounter Location Date Diagnosis [facility] [id number] [place] [address] 23286- 8818 Apr, [facility] [id number] [place] [address] 24348- 9541 Apr, [facility] [id number] [place] [address] 11664- 5883 Apr, [facility] [id number] [place] [address] 26548- 2409 Apr, [facility] [id number] [place] [address] 38262- 5880 Feb, First trimester Z34.91 and 10 weeks gestation of Z3A.10 [facility] [id number] [place] [address] 86506- 7008 17 Jan, 2018 [facility] [id number] [place] [address] 81048- 9782 Jan, [facility] [id number] [place] [address] 30127- 4496 Jan, Normal in multigravida Z34.80 and 9 weeks gestation of Z3A.09 [facility] [id number] [place] [address] 91493- 5728 07 Jan, 2018 [facility] [id number] [place] [address] 10789- 2663 Jan, Encounter for test, result unknown Z32.00 [facility] [id number] [place] [address] 82057- 3840 September, History of fainting spells of unknown cause Z91.89 [facility] [id number] [place] [address] 48169- 0638 Aug, Yeast infection involving the vagina and surrounding area B37.3 ; Bipolar disorder, unspecified F31.9 and Trichomonas vaginalis infection A59.9 [facility] [id number] [place] [address] 09583- 4657 Jun, Bipolar disorder, unspecified F31.9 [facility] [id number] [place] [address] 98547- 2635 Jun, Encounter for surveillance of injectable contraceptive Z30.42 and Bipolar disorder, unspecified F31.9 [facility] [id number] [place] [address] 73816- 4547 May, Encounter for Depo-Provera contraception Z30.42 [facility] [id number] [place] [address] 42007 -4238 Apr, Syncope, unspecified syncope type R55 [facility] [place] [id number] [place] [address] 17909- 8554 Mar, Bipolar disorder, unspecified F31.9 and High risk medication use Z79.899 [facility] [id number] [place] [address] 43331- 1191 Feb, [facility] [place] [address] 41335- 5338 Feb, Encounter for Depo-Provera contraception Z30.42 [facility] [id number] [place] [address] 99525- 8949 Nov, Encounter for Depo-Provera contraception Z30.42 [facility] [id number] [place] [address] 71923- 5021 September, [facility] [address] 59600- 3112 Aug, [facility] [address] 49280- 8296 Aug, Late period N92.6 ; STD exposure Z20.2 ; control counseling Z30.09 and Encounter for Depo-Provera contraception Z30.42 [facility] [address] 56271 -6750 Jul, Body aches R52 ; Influenza A J10.1 ; Impacted cerumen of left ear H61.22 and Acute serous otitis media of left ear, recurrence not specified H65.02 [facility] [address] 57796- 4074 May, [facility] [address] 48372- 4610 Apr, Encounter for female control Z30.019 ; Encounter for Depo-Provera contraception Z30.42 and Well woman exam Z01.419 [facility] [address] [id number] Feb, Dental examination Z01.20 [facility] [id number] [place] [address] [id number] Feb, Dental caries K02.9 [facility] [address] [id number] Feb, Dental examination Z01.20 [facility] [address] 14698 -7495 Dec, Bilateral impacted cerumen H61.23 ; Dizziness R42 and Nausea R11.0 [facility] [address] 60333- 7833 Dec, Encounter for Depo-Provera contraception Z30.42 [facility] [id number] [place] [address] 31249- 9751 Oct, Bipolar affective disorder, currently depressed, moderate F31.32 [facility] [id number] [place] [address] 63234- 5159 September, Bipolar disorder, unspecified F31.9 [facility] [address] 00232- 0837 September, Bipolar disorder, unspecified F31.9 [facility] [id number] [place] [address] 65239- 4673 September, Bipolar disorder, unspecified F31.9 [facility] [id number] [place] [address] 45619- 4994 September, Encounter for Depo-Provera contraception Z30.42 [facility] [address] 59075- 0950 Aug, Bipolar disorder, unspecified F31.9 [facility] [place] [id number] [place] [address] 53431- 6482 Jun, Encounter for Depo-Provera contraception Z30.42 [facility] [id number] [place] [address] 01725- 2180 Apr, URI (upper respiratory infection) J06.9 [facility] [place] [id number] [place] [address] 05437- 8079 Mar, Encounter for Depo-Provera contraception Z30.42 [facility] [id number] [place] [address] 60402- 6961 Mar, [facility] [address] 97543- 8173 Mar, Generalized anxiety disorder F41.1 and Major depressive disorder, recurrent episode, moderate F33.1 [facility] [id number] [place] [address] 72834- 2755 Jan, Esophageal reflux 530.81 ; Depression 311 and Anxiety 300.00 [facility] [address] [address]- 5500 Dec, Depo-Provera contraceptive status V25.49 [facility] [address] [address]- 4841 Dec, test negative V72.41 [facility] [id number] [address]- 4650 Oct, [facility] [id number] [address]- 5752 Oct, [facility] [id number] [place] [address] 58605- 4190 September, [facility] [id number] [address]- 7249 September, [facility] [id number] [place] [address] 99334- 6846 September, [facility] [address] [address]- 0450 September, [facility] [id number] [address]- 7597 September, [facility] [address] [address]- 4938 September, [facility] [address] [address]- 6743 September, [facility] [address] 8976 September, Other general counseling and advice for contraceptive management V25.09 [facility] [address] [address]- 4679 September, [facility] [address] [address]- 5073 September, [facility] [id number] [place] [address]- 0306 September, [facility] [address] [id number] [place] [address]- 1546 September, [facility] [place] [facility] [address] [id number] [place] [address]- 7642 29 Aug, 2014 [facility] [place] [facility] [address] [id number] [place] [address]- 8500 28 Aug, 2014 [facility] [place] [facility] [address] [id number] [place] [address]- 4551 14 Aug, 2014 [facility] [place] [facility] [address] [id number] [place] [address]- 8521 Aug, [facility] [place] [facility] [address] [id number] [place] [address]- 5300 Jul, [facility] [place] [facility] [address] [id number] [place] [address]- 0599 27 Jul, 2014 [facility] [place] [facility] [address] [id number] [place] [address]- 0025 20 Jul, 2014 [facility] [place] [facility] [address] [id number] [place] [address]- 7848 19 Jul, 2014 [facility] [place] [facility] [address] [facility] [id number] [place] [address]- 1504 19 Jul, 2014 [facility] [place] [facility] [address] [id number] [place] [address]- 2312 18 Jul, 2014 [facility] [place] [facility] [address] [id number] [place] [address]- 5318 18 Jul, 2014 [facility] [place] [facility] [address] [id number] [place] [address]- 4148 16 Jun, 2014 [facility] [place] [facility] [address] [id number] [place] [address]- 9256 16 Jun, 2014 [facility] [place] [facility] [address] [id number] [place] [address]- 1164 13 Jun, 2014 [facility] [place] [facility] [address] [id number] [place] [address]- 3780 Jun, [facility] [place] [facility] [address] [id number] [place] [address]- 3049 02 Jun, 2014 [facility] [place] [facility] [address] [facility] [id number] [place] [address]- 7066 Jun, [facility] [place] [facility] [address] [id number] [place] [address]- 1091 May, [facility] [place] [facility] [address] [id number] [place] [address]- 7061 May, [facility] [place] [facility] [address] [id number] [place] [address]- 4378 Apr, [facility] [place] [facility] [address] [id number] [place] [address]- 9893 Apr, [facility] [place] [facility] [address] [id number] [place] [address]- 2682 Apr, [facility] [place] [facility] [address] [id number] [place] [address]- 8485 Apr, [facility] [place] [facility] [address] [id number] [place] [address]- 7703 Apr, [facility] [place] [facility] [address] [id number] [place] [address]- 1560 Apr, [facility] [place] [facility] [address] [id number] [address]- 7143 Mar, [facility] [place] [facility] [address] [id number] [place] [address]- 7023 Mar, [facility] [place] [facility] [address] [id number] [place] [address]- 8934 14 Mar, 2014 [facility] [place] [facility] [address] [id number] [place] [address]- 1036 Mar, [facility] [place] [facility] [address] [id number] [place] [address]- 2037 Mar, [facility] [place] [facility] [address] [id number] [place] [address]- 8384 Feb, 2013 [facility] [place] [facility] [address] [id number] [place] [address]- 7664 Feb, [facility] [place] [facility] [address] [id number] [place] [address]- 0992 Feb, [facility] [place] [facility] [address] [id number] [place] [address]- 0813 Feb, [facility] [place] [facility] [address] [id number] [place] [address]- 2070 Feb, [facility] [place] [facility] [address] [id number] [place] [address]- 6762 16 Feb, 2013 [facility] [place] [facility] [address] [id number] [place] [address]- 5412 Feb, 2013 [facility] [place] [facility] [address] [id number] [place] [address]- 1793 16 Feb, 2013 [facility] [place] [facility] [address] [id number] [place] [address]- 0772 05 Sep, 2013 [facility] [place] [facility] [address] [id number] [place] [address]- 7790 05 Sep, 2013 [facility] [place] [facility] [address] [id number] [place] [address]- 2545 05 Sep, 2013 [facility] [place] [facility] [address] [id number] [place] [address]- 1488 05 Sep, 2013 [facility] [place] [facility] [address] [id number] [place] [address]- 4522 02 Sep, 2013 [facility] [place] [facility] [address] [id number] [place] [address]- 2533 02 Sep, 2013 [facility] [place] [facility] [address] [id number] [place] [address]- 7330 Jan, [facility] [place] [facility] [address] [id number] [place] [address]- 9771 Jan, [facility] [place] [facility] [address] [id number] [place] [address]- 7420 Dec, [facility] [place] [facility] [address] [id number] [place] [address]- 7218 Dec, [facility] [place] [facility] [address] [id number] [place] [address]- 0480 Dec, [facility] [place] [facility] [address] [id number] [place] [address]- 4770 Dec, [facility] [place] [facility] [address] [id number] [place] [address]- 9143 Dec, [facility] [place] [facility] [address] [id number] [place] [address]- 5580 Dec, [facility] [place] [facility] [address] [id number] [place] [address]- 9132 Dec, [facility] [place] [facility] [address] [id number] [place] [address]- 3896 Dec, [facility] [place] [facility] [address] [id number] [place] [address]- 9468 Dec, [facility] [place] [facility] [address] [id number] [place] [address]- 3378 Dec, [facility] [place] [facility] [address] [id number] [place] [address]- 1596 Dec, [facility] [place] [facility] [address] [id number] [place] [address]- 3560 Dec, [facility] [place] [facility] [address] [id number] [place] [address]- 1873 Dec, [facility] [place] [facility] [address] [id number] [place] [address]- 5999 Dec, [facility] [place] [facility] [address] [id number] [place] [address]- 5268 Dec, [facility] [place] [facility] [address] [id number] [place] [address]- 6002 Dec, [facility] [place] [facility] [address] [id number] [place] [address]- 2454 Dec, [facility] [place] [facility] [address] [id number] [place] [address]- 1345 Nov, [facility] [place] [facility] [address] [id number] [place] [address]- 9292 Nov, [facility] [place] [facility] [address] [id number] [place] [address]- 1623 Nov, [facility] [place] [facility] [address] [id number] [place] [address]- 9711 Nov, [facility] [place] [facility] [address] [id number] [place] [address]- 3435 Nov, [facility] [place] [facility] [address] [id number] [place] [address]- 7025 Nov, [facility] [place] [facility] [address] [id number] [place] [address]- 5479 Nov, [facility] [place] [facility] [address] [id number] [place] [address]- 4040 Nov, [facility] [place] [facility] [address] [id number] [place] [address]- 6936 Nov, [facility] [place] [facility] [address] [id number] [place] [address]- 9531 Oct, [facility] [place] [facility] [address] [id number] [place] [address]- 3894 Oct, [facility] [place] [facility] [address] [id number] [place] [address]- 0028 Oct, [facility] [place] [facility] [address] [id number] [place] [address]- 9175 Oct, [facility] [place] [facility] [address] [id number] [place] [address]- 3536 Oct, [facility] [place] [facility] [address] [id number] [place] [address]- 7502 Oct, [facility] [place] [facility] [address] [id number] [place] [address]- 4614 Oct, [facility] [place] [facility] [address] [id number] [place] [address]- 0590 Oct, [facility] [place] [facility] [address] [id number] [place] [address]- 1725 Oct, [facility] [place] [facility] [address] [id number] [place] [address]- 7417 Oct, [facility] [place] [facility] [address] [id number] [place] [address]- 6607 September, [facility] [place] [facility] [address] [id number] [place] [address]- 1370 September, [facility] [place] [facility] [address] [id number] [place] [address]- 2546 September, [facility] [place] [facility] [address] [id number] [place] [address]- 7487 September, [facility] [place] [facility] [address] [id number] [place] [address]- 7550 Aug, [facility] [place] [facility] [address] [id number] [place] [address]- 9180 Aug, [facility] [place] [facility] [address] [id number] [place] [address]- 8644 Aug, [facility] [place] [facility] [address] [id number] [place] [address]- 5242 Aug, [facility] [place] [facility] [address] [id number] [place] [address]- 0316 Aug, [facility] [place] [facility] [address] [id number] [place] [address]- 7921 Aug, [facility] [place] [facility] [address] [id number] [place] [address]- 6393 15 Aug, 2013 [facility] [place] [facility] [address] [id number] [place] [address]- 4980 Aug, [facility] [place] [facility] [address] [id number] [place] [address]- 8522 Aug, [facility] [place] [facility] [address] [id number] [place] [address]- 0499 Aug, [facility] [place] [facility] [address] [id number] [place] [address]- 0579 Aug, [facility] [place] [facility] [address] [id number] [place] [address]- 1767 Jul, [facility] [place] [facility] [address] [id number] [place] [address]- 6024 Jul, [facility] [place] [facility] [address] [id number] [place] [address]- 0069 Jul, [facility] [place] [facility] [address] [id number] [place] [address]- 1954 Jul, [facility] [place] [facility] [address] [id number] [place] [address]- 9262 Jul, [facility] [place] [facility] [address] [id number] [place] [address]- 8781 Jul, [facility] [place] [facility] [address] [id number] [place] [address]- 8633 Jun, [facility] [place] [facility] [address] [id number] [place] [address]- 8577 Jun, [facility] [place] [facility] [address] [id number] [place] [address]- 7318 Jun, [facility] [place] [facility] [address] [id number] [place] [address]- 1166 Jun, [facility] [place] [facility] [address] [id number] [place] [address]- 4326 Jun, 2013 [facility] [place] [facility] [address] [id number] [place] [address] 2546 Jun, 2013 [facility] [place] [facility] [address] [id number] [place] [address]- 2546 Jun, 2013 [facility] [place] [facility] [address] [id number] [place] [address]- 1836 Jun, 2013 [facility] [place] [facility] [address] [id number] [place] [address]- 2546 Jun, 2013 [facility] [place] [facility] [address] [id number] [place] [address]- 1586 Jun, 2013 [facility] [place] [facility] [address] [id number] [place] [address]- 2942 Jun, [facility] [place] [facility] [address] [id number] [place] [address]- 0028 Jun, 2013 [facility] [place] [facility] [address] [id number] [place] [address]- 6154 Jun, [facility] [place] [facility] [address] [facility] [id number] [place] [address]- 5375 Jun, [facility] [place] [facility] [address] [facility] [id number] [place] [address]- 9623 Jun, [facility] [place] [facility] [address] [id number] [place] [address]- 2543 Jun, 2013 [facility] [place] [facility] [address] [id number] [place] [address]- 2716 Jun, [facility] [place] [facility] [address] [id number] [place] [address]- 2156 Jun, [facility] [place] [facility] [address] [facility] [id number] [place] [address] Jun, 2013 [facility] [place] [facility] [address] [facility] [id number] [place] [address] Jun, [facility] [place] [facility] [address] [id number] [place] [address] Jun, [facility] [place] [facility] [address] [id number] [place] [address] Jun, [facility] [place] [facility] [address] [id number] [place] [address] May, [facility] [place] [facility] [address] [id number] [place] [address]471 May, [facility] [place] [facility] [address] [id number] [place] [address]- [address] May, [facility] [place] [facility] [address] [id number] [place] [address]- [address]66 May, [facility] [place] [facility] [address] [id number] [place] [address]- [address] May, [facility] [place] [facility] [address] [id number] [place] [address]- 69[address] May, [facility] [place] [facility] [address] [id number] [place] [address]- 1411 May, [facility] [place] [facility] [address] [id number] [place] [address]- [address] May, [facility] [place] [facility] [address] [id number] [place] [address]- [address]208 May, [facility] [place] [facility] [address] [id number] [place] [address]- 70[address] May, [facility] [place] [facility] [address] [id number] [place] [address]- [address]177 May, [facility] [place] [facility] [address] [id number] [place] [address]- 4177 May, [facility] [place] [facility] [address] [id number] [place] [address]- [address]006 May, [facility] [place] [facility] [address] [id number] [place] [address]- 8472 May, [facility] [address] [id number] [place] [address]- [address]161 Apr, [facility] [address] [id number] [place] [address]- 7931 Apr, [facility] [address] [id number] [place] [address]- [address] Apr, [facility] [address] [id number] [place] [address]- 96[address] Apr, [facility] [address] [id number] [place] [address]- [address] Apr, [facility] [address] [id number] [place] [address]- [address] Apr, [facility] [address] [id number] [place] [address]- [address]36 Apr, [facility] [address] [id number] [place] [address]- 7318 Apr, [facility] [address] [id number] [place] [address] Mar, [facility] [place] [facility] [address] [id number] [place] [address]- [address] Mar, [facility] [place] [facility] [address] [id number] [place] [address] Mar, [facility] [place] [facility] [address] [id number] [place] [address]- 4183 Mar, [facility] [place] [facility] [address] [id number] [place] [address]- 2546 Feb, [facility] [place] [facility] [address] [id number] [place] [address]- [address]329 Feb, [facility] [place] [facility] [address] [id number] [place] [address]- 9539 Feb, [facility] [address] [id number] [id number] [address] Feb, [facility] [place] [facility] [address] [id number] [place] [address]- 2007 Feb, [facility] [place] [facility] [address] [id number] [place] [address]- [address]345 Feb, [facility] [place] [facility] [address] [id number] [place] [address] Feb, [facility] [place] [facility] [address] [id number] [place] [address]- 6272 Feb, [facility] [place] [facility] [address] [id number] [place] [address]- [address] Jan, [facility] [place] [facility] [address] [id number] [place] [address]- [address] Oct, [facility] [place] [facility] [address] [id number] [place] [address]- 96[address] September, [facility] [place] [facility] [address] [id number] [place] [address]- 1736 Jun, [facility] [place] [facility] [address] [id number] [place] [address]- [address]80 Jun, [facility] [place] [facility] [address] [id number] [place] [address] Jun, [facility] [place] [facility] [address] [id number] [place] [address] 2545 Jun, [facility] [place] [facility] [address] [id number] [place] [address]- [address]256 May, [facility] [place] [facility] [address] [id number] [place] [address]- [address]757 Apr, [facility] [place] [facility] [address] [facility] [id number] [place] [address] Apr, [facility] [place] [facility] [address] [id number] [place] [address]- 1515 Apr, [facility] [place] [facility] [address] [id number] [place] [address]- 6[address] Apr, [facility] [place] [facility] [address] [id number] [place] [address]- 0816 Mar, [facility] [place] [facility] [address] [id number] [place] [address]- 8816 Mar, [facility] [place] [facility] [address] [id number] [place] [address]- 285[address] Jan, [facility] [place] [facility] [address] [id number] [place] [address]- 4269 Dec, [facility] [place] [facility] [address] [id number] [place] [address]- 4215 Dec, [facility] [place] [facility] [address] [id number] [place] [address]- 2535 Dec, [facility] [place] [facility] [address] [id number] [place] [address]- 7025 Dec, [facility] [place] [facility] [address] [id number] [place] [address] Nov, [facility] [place] [facility] [address] [id number] [place] [address] Nov, [facility] [place] [facility] [address] [id number] [place] [address] Nov, [facility] [place] [facility] [address] [id number] [place] [address] Nov, [facility] [place] [facility] [address] [id number] [place] [address] Aug, [facility] [place] [facility] [address] [id number] [place] [address] Aug, [facility] [place] [facility] [address] [id number] [place] [address] Jul, [facility] [address] [id number] [place] [address] Jul, [facility] [place] [facility] [address] [id number] [place] [address] Jul, [facility] [place] [facility] [address] [facility] [id number] [place] [address] Jul, [facility] [place] [facility] [address] [id number] [place] [address] Jun, [facility] [place] [facility] [address] [id number] [place] [address] Jun, [facility] [place] [facility] [address] [facility] [id number] [place] [address] 14 Jun, 2011 [facility] [place] [facility] [address] [facility] [id number] [place] [address] Jun, [facility] [place] [facility] [address] [id number] [place] [address] Jun, [facility] [place] [facility] [address] [facility] [id number] [place] [address] Jun, [facility] [place] [facility] [address] [facility] [id number] [place] [address] Jun, [facility] [place] [facility] [address] [facility] [id number] [place] [address] Jun, [facility] [place] [facility] [address] [facility] [id number] [place] [address] Jun, [facility] [place] [facility] [address] [id number] [place] [address] May, [facility] [place] [facility] [address] [id number] [place] [address] May, [facility] [place] [facility] [address] [facility] [id number] [place] [address] May, [facility] [place] [facility] [address] [id number] [place] [address] May, [facility] [place] [facility] [address] [id number] [place] [address] May, [facility] [place] [facility] [address] [id number] [place] [address] Mar, [facility] [place] [facility] [address] [id number] [place] [address] Mar, [facility] [place] [facility] [address] [id number] [place] [address] Mar, [facility] [place] [facility] [address] [id number] [place] [address] Mar, [facility] [place] [facility] [address] [id number] [place] [address] Mar, [facility] [place] [facility] [address] [id number] [place] [address] Feb, [facility] [place] [facility] [address] [id number] [place] [address] Feb, [facility] [place] [facility] [address] [id number] [place] [address] Dec, [facility] [place] [facility] [address] [id number] [place] [address] 30 Apr, 2010 [facility] [place] [facility] [address] [id number] [place] [address] Apr, [facility] [place] [facility] [address] [id number] [place] [address] Apr, [facility] [place] [facility] [address] [id number] [place] [address] 29 Feb, 2010 [facility] [place] [facility] [address] [id number] [place] [address] Feb, [facility] [place] [facility] [address] [id number] [place] [address] 11 Jul, 2009 [facility] [address] [facility] [id number] [place] [address] 15 Jun, 2009 [facility] [address] [facility] [id number] [place] [address] 15 May, 2009 [facility] [address] [id number] [address] 29 Apr, 2009 [facility] [address] [facility] [id number] [place] [address] Apr, [facility] [address] [facility] [id number] [place] [address] Apr, [facility] [address] [facility] [id number] [place] [address] Mar, [facility] [address] [id number] [address] Jul, [facility] [address] [id number] [address] 16 Jun, 2008 [facility] [address] [id number] [address] 15 Jan, 2008 [facility] [address] [facility] [id number] [place] [address] 10 Oct, 2007 [facility] [address] [id number] [address] September, [facility] [address] [id number] [address] 11 Nov, 2006 [facility] [address] [facility] [id number] [place] [address] 16 Sep, 2005 [facility] [address] [facility] [id number] [place] [address] 17 Dec, 2003 [facility] [address] [id number] [address] 10 Mar, 2003 IMMUNIZATIONS No Known Immunizations SOCIAL HISTORY Never Assessed REASON FOR VISIT Paperwork PLAN OF CARE VITAL SIGNS MEDICATIONS Unknown Medications RESULTS No Results PROCEDURES No Known procedures INSTRUCTIONS MEDICATIONS ADMINISTERED No Known Medications MEDICAL [...]
--- OUTSIDE RECORDS SUMMARY | 2018-07-08 18:32 | XMS REPORT ---
Author Author BHUPINDER SLADE [facility] Address [address] [place] [address] Care Team Providers Care Finger Waver Name Role Phone BHUPINDER SLADE Unavailable PROBLEMS Type Condition ICD9-CM Code [id number] Code Onset Dates Condition Status SNOMED Code Problem Bipolar disorder, unspecified F31.9 Active [id number] ALLERGIES Substance Reaction Event Type Date Status Zoloft Unknown Drug Allergy Apr, Active Prednisone irritable Drug Allergy Apr, Active Vancomycin documented reaction to IV antibiotics during hospitalization. Drug Allergy Apr, Active ENCOUNTERS Encounter Location Date Diagnosis [place] [id number] [place] [address] 61035- 2896 Apr, [facility] [id number] [place] [address] 76282 -1715 Apr, Acute nasopharyngitis J00 and Sore throat J02.9 [place] [id number] [place] [address] 17749- 1651 Apr, [place] [id number] [place] [address] 56133- 6216 Apr, [place] [id number] [place] [address] 23113- 3093 Apr, [facility] [id number] [place] [address] 46345- 9381 Feb, First trimester Z34.91 and 10 weeks gestation of Z3A.10 [facility] [id number] [place] [address] 61083- 8465 Jan, [facility] [id number] [place] [address] 97161- 6262 Jan, [place] [id number] [place] [address] 67017- 1984 17 Jan, 2018 Normal in multigravida Z34.80 and 9 weeks gestation of Z3A.09 [place] [id number] [place] [address] 80765- 3854 07 Jan, 2018 [place] [address] 27506- 0833 05 Jan, 2018 Encounter for test, result unknown Z32.00 [place] [address] 80433- 9544 September, History of fainting spells of unknown cause Z91.89 [place] [address] 69812- 3797 Aug, Yeast infection involving the vagina and surrounding area B37.3 ; Bipolar disorder, unspecified F31.9 and Trichomonas vaginalis infection A59.9 [place] [address] 65247- 0766 Jun, Bipolar disorder, unspecified F31.[address] 12963- 2507 Jun, Encounter for surveillance of injectable contraceptive Z30.42 and Bipolar disorder, unspecified F31.9 [place] [id number] [place] [address] 73390- 4945 May, Encounter for Depo-Provera contraception Z30.42 [facility] [id number] [place] [address] 83582 -7827 Apr, Syncope, unspecified syncope type R55 [place] [address] 13001- 1890 Mar, Bipolar disorder, unspecified F31.9 and High risk medication use Z79.[address] 39666- 1258 Feb, [facility] [id number] [place] [address] 95819- 2650 Feb, Encounter for Depo-Provera contraception Z30.42 [facility] [id number] [place] [address] 03387- 1328 Nov, Encounter for Depo-Provera contraception Z30.42 [facility] [address] 32779- 2896 September, [facility] [address] 94830- 0350 Aug, [facility] [address] 54500- 5489 Aug, Late period N92.6 ; STD exposure Z20.2 ; control counseling Z30.09 and Encounter for Depo-Provera contraception Z30.42 [facility] [id number] [place] [address] 10102 -1438 Jul, Body aches R52 ; Influenza A J10.1 ; Impacted cerumen of left ear H61.22 and Acute serous otitis media of left ear, recurrence not specified H65.02 [facility] [id number] [place] [address] 17626- 8498 May, [facility] [id number] [place] [address] 18752- 5775 Apr, Encounter for female control Z30.019 ; Encounter for Depo-Provera contraception Z30.42 and Well woman exam Z01.419 [facility] [id number] [place] [address] [id number] Feb, Dental examination Z01.20 [facility] [id number] [place] [address] [id number] Feb, Dental caries K02.9 [facility] [address] [id number] Feb, Dental examination Z01.20 [facility] [id number] [place] [address] 41071 -5016 Dec, Bilateral impacted cerumen H61.23 ; Dizziness R42 and Nausea R11.0 [facility] [id number] [place] [address] 38385- 9340 Dec, Encounter for Depo-Provera contraception Z30.42 [place] [address] 91326- 9226 Oct, Bipolar affective disorder, currently depressed, moderate F31.32 [place] [address] 62488- 5046 September, Bipolar disorder, unspecified F31.9 [place] [address] 29217- 1791 September, Bipolar disorder, unspecified F31.9 [place] [address] 94850- 9430 September, Bipolar disorder, unspecified F31.9 [place] [address] 20844- 6553 September, Encounter for Depo-Provera contraception Z30.42 [place] [id number] [place] [address] 47918- 8734 Aug, Bipolar disorder, unspecified F31.9 [place] [id number] [place] [address] 63602- 9909 Jun, Encounter for Depo-Provera contraception Z30.42 [place] [id number] [place] [address] 47509- 8917 Apr, URI (upper respiratory infection) J06.9 [place] [id number] [place] [address] 09948- 0263 Mar, Encounter for Depo-Provera contraception Z30.42 [place] [address] 94268- 3615 Mar, [facility] [id number] [place] [address] 784890- 4286 Mar, Generalized anxiety disorder F41.1 and Major depressive disorder, recurrent episode, moderate F33.1 [facility] [id number] [place] [address] 509114- 3286 Jan, Esophageal reflux 530.81 ; Depression 311 and Anxiety 300.00 [facility] [id number] [place] [address] 34209- 1331 Dec, Depo-Provera contraceptive status V25.49 [facility] [address] 609323- 2647 Dec, test negative V72.41 [facility] [id number] [place] [address] 01235- 0807 Oct, [facility] [id number] [place] [address] 39650- 9825 Oct, [facility] [id number] [place] [address] 99598- 6752 September, [facility] [id number] [place] [address] 20193- 5891 September, [facility] [id number] [place] [address] 13865- 4258 September, [facility] [id number] [place] [address] 36688- 4008 September, [facility] [id number] [place] [address] 92595- 8516 September, [facility] [id number] [place] [address] 01899- 4690 September, [facility] [id number] [place] [address] 68676- 4982 September, [facility] [id number] [place] [address] 81733- 0585 September, Other general counseling and advice for contraceptive management V25.09 [facility] [address] [id number], [place] [address]- 9496 September, [facility] [address] [id number], [place] [address]- 8946 September, [facility] [address] [facility] [id number], [place] [address]- 0990 September, [facility] [id number] [place] [address] 36105- 2144 September, [facility] [address] [facility] [id number] [place] [address] 03603- 2309 29 Aug, 2014 [facility] [address] [facility] [id number], [place] [address]- 6853 28 Aug, 2014 [facility] [address] [facility] [id number] [place] [address] 06341- 2213 14 Aug, 2014 [facility] [address] [facility] [id number], [place] [address]- 6405 Aug, [facility] [address] [facility] [id number], [place] [address]- 6948 27 Jul, 2014 [facility] [address] [facility] [id number], [place] [address]- 4412 27 Jul, 2014 [facility] [address] [facility] [id number], [place] [address]- 1949 20 Jul, 2014 [facility] [address] [id number], [place] [address]- 1377 19 Jul, 2014 [facility] [address] [facility] [id number][place]66[place]- 0404 19 Jul, 2014 [facility] [address] [facility] [id number], [place] [address]- 1836 18 Jul, 2014 [facility] [address] [facility] [id number], [place] [address]- 2124 Jul, [facility] [place] [facility] [address] [id number] [place] [address]- 3474 Jun, 2014 [facility] [place] [facility] [address] [id number] [place] [address]- 6886 Jun, 2014 [facility] [place] [facility] [address] [id number] [place] [address]- 8536 Jun, 2014 [facility] [place] [facility] [address] [id number] [place] [address]- 8174 Jun, 2014 [facility] [place] [facility] [address] [id number] [place] [address]- 7286 Jun, [facility] [place] [facility] [address] [id number] [place] [address]- 6544 Jun, [facility] [place] [facility] [address] [facility] [id number] [place] [address]- 7080 May, [facility] [place] [facility] [address] [id number] [place] [address]- 1146 May, [facility] [place] [facility] [address] [id number] [place] [address]- 8584 Apr, [facility] [place] [facility] [address] [id number] [place] [address]- 4141 Apr, [facility] [place] [facility] [address] [facility] [id number] [place] [address]- 7284 Apr, [facility] [place] [facility] [address] [id number], [place] [address]- 3849 Apr, [facility] [place] [facility] [address] [id number] [place] [address]- 6046 Apr, [facility] [place] [facility] [address] [id number] [place] [address]- 9706 Apr, [facility] [place] [facility] [address] [facility] [id number] [place] [address]- 0286 Mar, [facility] [place] [facility] [address] [id number] [place] [address]- 1157 Mar, [facility] [place] [facility] [address] [id number] [place] [address]- 4792 Mar, [facility] [place] [facility] [address] [id number] [place] [address]- 3938 Mar, [facility] [place] [facility] [address] [id number] [place] [address]- 5667 Mar, [facility] [place] [facility] [address] [id number] [place] [address]- 9723 Feb, [facility] [place] [facility] [address] [id number] [place] [address]- 2723 Feb, [facility] [place] [facility] [address] [id number] [place] [address]- 9727 Feb, [facility] [place] [facility] [address] [id number] [place] [address]- 6701 Feb, [facility] [place] [facility] [address] [id number] [place] [address]- 8472 Feb, [facility] [place] [facility] [address] [id number] [place] [address]- 9328 Feb, [facility] [place] [facility] [address] [id number] [place] [address]- 1064 Feb, [facility] [place] [facility] [address] [id number] [place] [address]- 3803 16 Feb, 2014 [facility] [place] [facility] [address] [id number] [place] [address]- 0342 05 Sep, 2013 [facility] [place] [facility] [address] [id number] [place] [address]- 0174 05 Sep, 2013 [facility] [place] [facility] [address] [id number] [place] [address]- 2467 05 Sep, 2013 [facility] [place] [facility] [address] [id number] [place] [address]- 1215 05 Sep, 2013 [facility] [place] [facility] [address] [id number] [place] [address]- 7732 Jan, [facility] [place] [facility] [address] [id number] [place] [address]- 9286 Jan, [facility] [place] [facility] [address] [id number] [place] [address]- 6405 Jan, [facility] [place] [facility] [address] [id number] [place] [address]- 0383 Jan, [facility] [place] [facility] [address] [id number] [place] [address]- 9722 Dec, [facility] [place] [facility] [address] [id number] [place] [address]- 1140 Dec, [facility] [place] [facility] [address] [id number] [place] [address]- 4896 Dec, [facility] [place] [facility] [address] [id number] [place] [address]- 8614 Dec, [facility] [place] [facility] [address] [id number] [place] [address]- 2511 Dec, [facility] [place] [facility] [address] [id number] [place] [address]- 7302 Dec, [facility] [place] [facility] [address] [id number] [place] [address]- 1875 Dec, [facility] [place] [facility] [address] [id number] [place] [address]- 0716 Dec, [facility] [place] [facility] [address] [id number] [place] [address]- 2202 Dec, [facility] [place] [facility] [address] [id number] [place] [address]- 8059 Dec, [facility] [place] [facility] [address] [id number] [place] [address]- 5343 Dec, [facility] [place] [facility] [address] [id number] [place] [address]- 5194 Dec, [facility] [place] [facility] [address] [id number] [place] [address]- 7701 Dec, [facility] [place] [facility] [address] [id number] [place] [address]- 6216 Dec, [facility] [place] [facility] [address] [id number] [place] [address]- 4341 Dec, [facility] [place] [facility] [address] [id number] [place] [address]- 3154 Dec, [facility] [place] [facility] [address] [id number] [place] [address]- 8732 Dec, [facility] [place] [facility] [address] [id number] [place] [address]- 6638 Nov, [facility] [place] [facility] [address] [id number] [place] [address]- 5031 Nov, [facility] [place] [facility] [address] [id number] [place] [address]- 3207 Nov, [facility] [place] [facility] [address] [id number] [place] [address]- 5439 Nov, [facility] [place] [facility] [address] [id number] [place] [address]- 5929 Nov, [facility] [place] [facility] [address] [id number] [place] [address]- 1210 Nov, [facility] [place] [facility] [address] [id number] [place] [address]- 7944 Nov, [facility] [place] [facility] [address] [id number] [place] [address]- 3765 Nov, [facility] [place] [facility] [address] [id number] [place] [address]- 3904 Nov, [facility] [place] [facility] [address] [id number] [place] [address]- 9994 Oct, [facility] [place] [facility] [address] [id number] [place] [address]- 3945 30 Oct, 2013 [facility] [place] [facility] [address] [id number] [place] [address]- 1008 Oct, [facility] [place] [facility] [address] [id number] [place] [address]- 7730 Oct, [facility] [place] [facility] [address] [id number] [place] [address]- 5754 Oct, [facility] [place] [facility] [address] [id number] [place] [address]- 6066 Oct, [facility] [place] [facility] [address] [id number] [place] [address]- 5200 Oct, [facility] [place] [facility] [address] [id number] [place] [address]- 4934 Oct, [facility] [place] [facility] [address] [id number] [place] [address]- 6739 Oct, [facility] [place] [facility] [address] [id number] [place] [address]- 4038 Oct, [facility] [place] [facility] [address] [id number] [place] [address]- 3746 September, [facility] [place] [facility] [address] [id number] [place] [address]- 8227 September, [facility] [place] [facility] [address] [id number] [place] [address]- 0077 September, [facility] [place] [facility] [address] [id number] [place] [address]- 5493 September, [facility] [place] [facility] [address] [id number] [place] [address]- 2115 Aug, [facility] [place] [facility] [address] [id number] [place] [address]- 6133 Aug, [facility] [place] [facility] [address] [id number] [place] [address]- 1760 Aug, [facility] [place] [facility] [address] [id number] [place] [address]- 2401 Aug, [facility] [place] [facility] [address] [id number] [place] [address]- 8666 Aug, [facility] [place] [facility] [address] [id number] [place] [address]- 6124 Aug, [facility] [place] [facility] [address] [id number] [place] [address]- 5958 Aug, [facility] [place] [facility] [address] [id number] [place] [address]- 7032 Aug, [facility] [place] [facility] [address] [id number] [place] [address]- 8278 Aug, [facility] [place] [facility] [address] [id number] [place] [address]- 2138 Aug, [facility] [place] [facility] [address] [id number] [place] [address]- 2173 Aug, [facility] [place] [facility] [address] [id number] [place] [address]- 4261 Jul, [facility] [place] [facility] [address] [id number] [place] [address]- 6381 Jul, [facility] [place] [facility] [address] [id number] [place] [address]- 6671 Jul, [facility] [place] [facility] [address] [id number] [place] [address]- 7106 Jul, [facility] [place] [facility] [address] [id number] [place] [address]- 6965 Jul, [facility] [place] [facility] [address] [id number] [place] [address]- 4497 Jul, [facility] [place] [facility] [address] [id number] [place] [address]- 0683 Jun, [facility] [place] [facility] [address] [id number] [place] [address]- 3745 Jun, [facility] [place] [facility] [address] [id number] [place] [address]- 8175 Jun, 2013 [facility] [place] [facility] [address] [facility] [id number] [place] [address]- 2166 Jun, 2013 [facility] [place] [facility] [address] [facility] [id number] [place] [address]- 8176 Jun, 2013 [facility] [place] [facility] [address] [id number] [place] [address]- 2418 Jun, [facility] [place] [facility] [address] [facility] [id number] [place] [address]- 1397 Jun, [facility] [place] [facility] [address] [facility] [id number] [place] [address]- 4606 Jun, [facility] [place] [facility] [id number] [place] [address]- 9992 Jun, 2013 [facility] [place] [facility] [address] [facility] [id number] [place] [address]- 7036 Jun, [facility] [place] [facility] [address] [facility] [id number] [place] [address]- 1782 Jun, [facility] [place] [facility] [address] [facility] [id number] [place] [address] Jun, [facility] [place] [facility] [address] [facility] [id number], [place] [address] Jun, [facility] [place] [facility] [address] [facility] [id number] [place] [address] Jun, [facility] [place] [facility] [address] [facility] [id number] [place] [address] Jun, [facility] [place] [facility] [address] [facility] [id number] [place] [address] Jun, 2013 [facility] [place] [facility] [address] [facility] [id number], [place] [address] Jun, [facility] [place] [facility] [address] [id number] [place] [address] Jun, [facility] [place] [facility] [address] [id number] [place] [address] Jun, [facility] [place] [facility] [address] [id number] [place] [address] Jun, [facility] [place] [facility] [address] [id number] [place] [address] Jun, [facility] [place] [facility] [address] [id number] [place] [address] Jun, [facility] [place] [facility] [address] [id number] [place] [address] May, [facility] [place] [facility] [address] [id number] [place] [address] May, [facility] [place] [facility] [address] [id number] [place] [address] May, [facility] [place] [facility] [address] [id number] [place] [address] May, [facility] [place] [facility] [address] [id number] [place] [address] May, [facility] [place] [facility] [address] [id number] [place] [address] May, [facility] [place] [facility] [address] [id number] [place] [address] May, [facility] [place] [facility] [address] [id number] [place] [address] May, [facility] [place] [facility] [address] [id number] [place] [address] May, [facility] [place] [facility] [address] [id number] [place] [address] May, [facility] [place] [facility] [address] [id number] [place] [address] May, [facility] [place] [facility] [address] [id number] [place] [address] May, [facility] [place] [facility] [address] [id number] [place] [address] May, [facility] [place] [facility] [address] [id number] [place] [address] May, [facility] [place] [facility] [address] [id number] [place] [address] Apr, [facility] [place] [facility] [address] [id number] [place] [address] Apr, [facility] [address] [id number] [place] [address] Apr, [facility] [place] [facility] [address] [id number] [place] [address] Apr, [facility] [place] [facility] [address] [id number] [place] [address] Apr, [facility] [place] [facility] [address] [id number] [place] [address] Apr, [facility] [place] [facility] [address] [id number] [place] [address] Apr, [facility] [place] [facility] [address] [id number] [place] [address] Apr, [facility] [place] [facility] [address] [id number] [place] [address] Mar, [facility] [place] [facility] [address] [id number] [place] [address] Mar, [facility] [place] [facility] [address] [id number] [place] [address] Mar, [facility] [place] [facility] [address] [id number], [place] [address] Mar, [facility] [place] [facility] [address] [id number] [place] [address] Feb, [facility] [place] [facility] [address] [id number] [place] [address] Feb, [facility] [place] [facility] [address] [facility] [id number] [place] [address] Feb, [facility] [place] [facility] [address] [id number], [place] [address] Feb, [facility] [place] [facility] [address] [id number] [place] [address] Feb, [facility] [place] [facility] [address] [facility] [id number] [place] [address] Feb, [facility] [place] [facility] [address] [facility] [id number], [place] [address] Feb, [facility] [place] [facility] [address] [id number], [place] [address] Feb, [facility] [place] [facility] [address] [facility] [id number], [place] [address] Jan, [facility] [place] [facility] [address] [facility] [id number], [place] [address] Oct, [facility] [place] [facility] [address] [facility] [id number], [place] [address] September, [facility] [place] [facility] [address] [id number], [place] [address] Jun, [facility] [place] [facility] [address] [id number] [place] [address] Jun, [facility] [place] [facility] [address] [facility] [id number], [place] [address] Jun, [facility] [place] [facility] [address] [facility] [id number] [place] [address] Jun, [facility] [place] [facility] [address] [id number] [place] [address] May, [facility] [place] [facility] [address] [id number] [place] [address] Apr, [facility] [place] [facility] [address] [id number] [place] [address] Apr, [facility] [place] [facility] [address] [id number] [place] [address] Apr, [facility] [place] [facility] [address] [id number] [place] [address] Apr, [facility] [place] [facility] [address] [id number] [place] [address] Mar, [facility] [place] [facility] [address] [id number] [place] [address] Mar, [facility] [place] [facility] [address] [id number] [place] [address] Jan, [facility] [place] [facility] [address] [id number] [place] [address] Dec, [facility] [place] [facility] [address] [id number] [place] [address] Dec, [facility] [place] [facility] [address] [id number] [place] [address] Dec, [facility] [place] [facility] [address] [id number] [place] [address] Dec, [facility] [place] [facility] [address] [id number] [place] [address] Nov, [facility] [place] [facility] [address] [id number] [place] [address] Nov, [facility] [place] [facility] [address] [id number] [place] [address] Nov, [facility] [place] [facility] [address] [id number] [place] [address] Nov, [facility] [place] [facility] [address] [id number] [place] [address] Aug, [facility] [place] [facility] [address] [id number] [place] [address] Aug, [facility] [place] [facility] [address] [facility] [id number] [place] [address] Jul, [facility] [place] [facility] [address] [id number] [place] [address] Jul, [facility] [place] [facility] [address] [id number] [place] [address] Jul, [facility] [place] [facility] [address] [facility] [id number] [place] [address] Jul, [facility] [place] [facility] [id number] [place] [address] Jun, [facility] [place] [facility] [address] [facility] [id number] [place] [address]- [address] Jun, [facility] [place] [facility] [id number] [place] [address] 14 Jun, 2011 [facility] [place] [facility] [id number] [place] [address] Jun, [facility] [place] [facility] [id number] [place] [address] Jun, [facility] [place] [facility] [address] [facility] [id number] [place] [address] Jun, [facility] [place] [facility] [address] [facility] [id number] [place] [address] 04 Jun, 2011 [facility] [place] [facility] [address] [facility] [id number] [place] [address] Jun, [facility] [place] [facility] [id number] [place] [address] Jun, [facility] [place] [facility] [address] [id number] [place] [address] 27 May, 2011 [facility] [place] [facility] [address] [id number] [place] [address] May, [facility] [place] [facility] [address] [id number] [place] [address] 18 May, 2011 [facility] [place] [facility] [address] [id number] [place] [address] May, [facility] [place] [facility] [address] [id number] [place] [address] May, [facility] [place] [facility] [address] [id number] [place] [address] Mar, [facility] [place] [facility] [address] [id number] [place] [address] Mar, [facility] [place] [facility] [address] [id number] [place] [address]- [address] Mar, [facility] [place] [facility] [address] [id number] [place] [address]- [address] Mar, [facility] [place] [facility] [address] [id number] [place] [address] Mar, [facility] [place] [facility] [address] [id number] [place] [address]- [address] Feb, [facility] [place] [facility] [address] [id number] [place] [address] Feb, [facility] [place] [facility] [address] [id number] [place] [address]- [address] Dec, [facility] [place] [facility] [address] [id number] [place] [address]- [address] Apr, [facility] [place] [facility] [address] [id number] [place] [address]- [address] Apr, [facility] [place] [facility] [address] [id number] [place] [address] 03 Apr, 2010 [facility] [place] [facility] [address] [id number] [place] [address]- [address] 29 Feb, 2010 [facility] [place] [facility] [address] [id number], [place] [address] 11 Feb, 2010 [facility] [place] [facility] [address] [facility] [id number] [place] [address]- [address] 11 Jul, 2009 [facility] [place] [facility] [address] [id number], [place] [address] 15 Jun, 2009 [facility] [place] [facility] [address] [id number] [place] [address]- [address] 15 May, 2009 [facility] [place] [facility] [address] [facility] [id number] [place] [address]- [address] Apr, [facility] [place] [facility] [address] [facility] [id number], [place] [address] Apr, [facility] [place] [facility] [address] [id number], [place] [address]- [address] Apr, [facility] [place] [facility] [address] [facility] [id number], [place] [address] Mar, [facility] [place] [facility] [address] [facility] [id number], [place] [address] 11 Jul, 2008 [facility] [place] [facility] [address] [facility] [id number], [place] [address]- [address] 16 Jun, 2008 [facility] [place] [facility] [address] [id number], [place] [address]- [address] 15 Jan, 2008 [facility] [place] [facility] [address] [id number], [place] [address] Oct, [facility] [place] [facility] [address] [facility] [id number], [place] [address]- [address] 13 Sep, 2007 [facility] [place] [facility] [address] [facility] [id number], [place] [address] 11 Nov, 2006 [facility] [place] [facility] [address] [facility] [id number] [place] [address] September, [facility] [address] [facility] [id number] [place] [address]- [address] Dec, [facility] [address] [facility] [id number] [place] [address] Mar, IMMUNIZATIONS No Known Immunizations SOCIAL HISTORY Never Assessed REASON FOR VISIT Sore throat x 2-3 days. The patient is also . Her boyfriend was diagnosed with strep yesterday.--STORMY Rose PLAN OF CARE Activity Details Follow Up prn Reason: VITAL SIGNS Height 59 in 2018-05-03 Weight 140.8 lbs 2018-05-03 Temperature 98.0 degrees Fahrenheit 2018-05-03 Heart Rate 88 bpm 2018-05-03 Respiratory Rate 20 2018-05-03 BMI 28.44 kg/m2 2018-05-03 Blood pressure systolic 98 mmHg 2018-05-03 Blood pressure diastolic 52 mmHg 2018-05-03 MEDICATIONS Medication Instructions Dosage Frequency Start Date End Date Duration Status Active RESULTS Name Result Date Reference Range STREP A (IN HOUSE) 2018-05-03 STREP A Negative Control + Lot # [id number] Exp date 09/2018 PROCEDURES Procedure Date Ordered Result Body Site STREP A ASSAY W/OPTIC May 03, 2018 INSTRUCTIONS MEDICATIONS ADMINISTERED No Known Medications [...]
--- OUTSIDE RECORDS SUMMARY | 2018-07-08 18:33 | XMS REPORT ---
Author Author RBOERTO FIGUEROA [facility] Address [address] [place] [address] Care Team Providers Care Commissary Assistant Name Role Phone ROBERTO FIGUEROA Unavailable PROBLEMS Type Condition ICD9-CM Code [id number] Code Onset Dates Condition Status SNOMED Code Problem Bipolar disorder, unspecified F31.9 Active [id number] ALLERGIES No Information ENCOUNTERS Encounter Location Date Diagnosis [place] [id number] [place] [address] 49082- 7957 Apr, [place] [id number] [place] [address] 98795- 7421 Apr, [place] [id number] [place] [address] 97240- 7720 Apr, [place] [id number] [place] [address] 26568- 2109 Apr, [place] [id number] [place] [address] 21244- 9361 Feb, First trimester Z34.91 and 10 weeks gestation of Z3A.10 [place] [id number] [place] [address] 53164- 0817 17 Jan, 2018 [place] [id number] [place] [address] 62747- 0792 Jan, [place] [id number] [place] [address] 20113- 1262 Jan, Normal in multigravida Z34.80 and 9 weeks gestation of Z3A.09 [place] [id number] [place] [address] 14293- 1897 07 Jan, 2018 [place] [id number] [place] [address] 93547- 3090 Jan, Encounter for test, result unknown Z32.00 [place] [id number] [place] [address] 37820- 8987 September, History of fainting spells of unknown cause Z91.89 [facility] [id number] [place] [address] 84937- 5156 Aug, Yeast infection involving the vagina and surrounding area B37.3 ; Bipolar disorder, unspecified F31.9 and Trichomonas vaginalis infection A59.9 [place] [id number] [place] [address] 03047- 7332 Jun, Bipolar disorder, unspecified F31.9 [place] [id number] [place] [address] 54480- 8065 Jun, Encounter for surveillance of injectable contraceptive Z30.42 and Bipolar disorder, unspecified F31.9 [place] [id number] [place] [address] 51623- 2442 May, Encounter for Depo-Provera contraception Z30.42 [facility] [id number] [place] [address] 68100 -2169 Apr, Syncope, unspecified syncope type R55 [place] [id number] [place] [address] 75519- 0025 Mar, Bipolar disorder, unspecified F31.9 and High risk medication use Z79.899 [facility] [id number] [place] [address] 24613- 4845 Feb, [place] [address] 39610- 0581 Feb, Encounter for Depo-Provera contraception Z30.42 [facility] [id number] [place] [address] 96511- 3263 Nov, Encounter for Depo-Provera contraception Z30.42 [facility] [id number] [place] [address] 77787- 0152 September, [place] [address] 73011- 3588 Aug, [place] [address] 38425- 0247 Aug, Late period N92.6 ; STD exposure Z20.2 ; control counseling Z30.09 and Encounter for Depo-Provera contraception Z30.42 [facility] [address] 26953 -0836 Jul, Body aches R52 ; Influenza A J10.1 ; Impacted cerumen of left ear H61.22 and Acute serous otitis media of left ear, recurrence not specified H65.02 [place] [address] 04291- 2136 May, [place] [address] 33512- 2682 Apr, Encounter for female control Z30.019 ; Encounter for Depo-Provera contraception Z30.42 and Well woman exam Z01.419 [facility] [address] [id number] Feb, Dental examination Z01.20 [facility] [id number] [place] [address] [id number] Feb, Dental caries K02.9 [facility] [address] [id number] Feb, Dental examination Z01.20 [facility] [address] 51517 -3933 Dec, Bilateral impacted cerumen H61.23 ; Dizziness R42 and Nausea R11.0 [facility] [address] 95636- 3983 Dec, Encounter for Depo-Provera contraception Z30.42 [place] [id number] [place] [address] 87313- 8850 Oct, Bipolar affective disorder, currently depressed, moderate F31.32 [place] [id number] [place] [address] 84294- 4407 September, Bipolar disorder, unspecified F31.9 [place] [address] 87734- 4825 September, Bipolar disorder, unspecified F31.9 [place] [id number] [place] [address] 64381- 3906 September, Bipolar disorder, unspecified F31.9 [place] [id number] [place] [address] 33245- 5997 September, Encounter for Depo-Provera contraception Z30.42 [place] [address] 76421- 7551 Aug, Bipolar disorder, unspecified F31.9 [place] [id number] [place] [address] 97553- 9465 Jun, Encounter for Depo-Provera contraception Z30.42 [place] [id number] [place] [address] 78294- 0842 Apr, URI (upper respiratory infection) J06.9 [place] [id number] [place] [address] 19696- 8240 Mar, Encounter for Depo-Provera contraception Z30.42 [place] [id number] [place] [address] 30756- 1070 Mar, [place] [address] 19402- 6908 Mar, Generalized anxiety disorder F41.1 and Major depressive disorder, recurrent episode, moderate F33.1 [place] [id number] [place] [address] 02493- 1010 Jan, Esophageal reflux 530.81 ; Depression 311 and Anxiety 300.00 [facility] [address] [address]- 0728 Dec, Depo-Provera contraceptive status V25.49 [facility] [address] [place] [address]- 0639 Dec, test negative V72.41 [facility] [id number] [address]- 4239 Oct, [facility] [id number] [address]- 7798 Oct, [facility] [id number] [place] [address] 39050- 8708 September, [facility] [id number] [address]- 7991 September, [facility] [id number] [place] [address] 78930- 0427 September, [facility] [address], [place] [address]- 0943 September, [facility] [id number] [address]- 1586 September, [facility] [address] [place] [address]- 6733 September, [facility] [address] [place] [address]- 7511 September, [facility] [address] 8037 September, Other general counseling and advice for contraceptive management V25.09 [facility] [address] [place] [address]- 5225 September, [facility] [address] [place] [address]- 5790 September, [facility] [id number] [place] [address]- 4236 September, [facility] [address] [id number] [place] [address]- 5944 September, [facility] [place] [facility] [address] [id number] [place] [address]- 2301 29 Aug, 2014 [facility] [place] [facility] [address] [id number] [place] [address]- 3010 28 Aug, 2014 [facility] [place] [facility] [address] [id number] [place] [address]- 3282 14 Aug, 2014 [facility] [place] [facility] [address] [id number] [place] [address]- 4632 Aug, [facility] [place] [facility] [address] [id number] [place] [address]- 9813 Jul, [facility] [place] [facility] [address] [id number] [place] [address]- 3732 27 Jul, 2014 [facility] [place] [facility] [address] [id number] [place] [address]- 8207 20 Jul, 2014 [facility] [place] [facility] [address] [id number] [place] [address]- 9864 19 Jul, 2014 [facility] [place] [facility] [address] [facility] [id number] [place] [address]- 3328 19 Jul, 2014 [facility] [place] [facility] [address] [id number] [place] [address]- 0704 18 Jul, 2014 [facility] [place] [facility] [address] [id number] [place] [address]- 8280 18 Jul, 2014 [facility] [place] [facility] [address] [id number] [place] [address]- 9769 16 Jun, 2014 [facility] [place] [facility] [address] [id number] [place] [address]- 9486 16 Jun, 2014 [facility] [place] [facility] [address] [id number] [place] [address]- 2924 13 Jun, 2014 [facility] [place] [facility] [address] [id number] [place] [address]- 7244 Jun, [facility] [place] [facility] [address] [id number] [place] [address]- 0439 02 Jun, 2014 [facility] [place] [facility] [address] [facility] [id number] [place] [address]- 5515 Jun, [facility] [place] [facility] [address] [id number] [place] [address]- 3986 May, [facility] [place] [facility] [address] [id number] [place] [address]- 4437 May, [facility] [place] [facility] [address] [id number] [place] [address]- 1436 Apr, [facility] [place] [facility] [address] [id number] [place] [address]- 1584 Apr, [facility] [place] [facility] [address] [id number] [place] [address]- 6798 Apr, [facility] [place] [facility] [address] [id number] [place] [address]- 5368 Apr, [facility] [place] [facility] [address] [id number] [place] [address]- 0994 Apr, [facility] [place] [facility] [address] [id number] [place] [address]- 0829 Apr, [facility] [place] [facility] [address] [id number] [address]- 8782 Mar, [facility] [place] [facility] [address] [id number] [place] [address]- 3865 Mar, [facility] [place] [facility] [address] [id number] [place] [address]- 0665 14 Mar, 2014 [facility] [place] [facility] [address] [id number] [place] [address]- 7634 Mar, [facility] [place] [facility] [address] [id number] [place] [address]- 4525 Mar, [facility] [place] [facility] [address] [id number] [place] [address]- 6222 Feb, 2013 [facility] [place] [facility] [address] [id number] [place] [address]- 5496 Feb, [facility] [place] [facility] [address] [id number] [place] [address]- 6059 Feb, [facility] [place] [facility] [address] [id number] [place] [address]- 0384 Feb, [facility] [place] [facility] [address] [id number] [place] [address]- 2390 Feb, [facility] [place] [facility] [address] [id number] [place] [address]- 9646 16 Feb, 2013 [facility] [place] [facility] [address] [id number] [place] [address]- 9187 Feb, 2013 [facility] [place] [facility] [address] [id number] [place] [address]- 5414 16 Feb, 2013 [facility] [place] [facility] [address] [id number] [place] [address]- 3100 05 Sep, 2013 [facility] [place] [facility] [address] [id number] [place] [address]- 4503 05 Sep, 2013 [facility] [place] [facility] [address] [id number] [place] [address]- 2540 05 Sep, 2013 [facility] [place] [facility] [address] [id number] [place] [address]- 6788 05 Sep, 2013 [facility] [place] [facility] [address] [id number] [place] [address]- 9742 02 Sep, 2013 [facility] [place] [facility] [address] [id number] [place] [address]- 2429 02 Sep, 2013 [facility] [place] [facility] [address] [id number] [place] [address]- 7227 Jan, [facility] [place] [facility] [address] [id number] [place] [address]- 7112 Jan, [facility] [place] [facility] [address] [id number] [place] [address]- 4591 Dec, [facility] [place] [facility] [address] [id number] [place] [address]- 0413 Dec, [facility] [place] [facility] [address] [id number] [place] [address]- 6932 Dec, [facility] [place] [facility] [address] [id number] [place] [address]- 1974 Dec, [facility] [place] [facility] [address] [id number] [place] [address]- 5054 Dec, [facility] [place] [facility] [address] [id number] [place] [address]- 2314 Dec, [facility] [place] [facility] [address] [id number] [place] [address]- 0077 Dec, [facility] [place] [facility] [address] [id number] [place] [address]- 8329 Dec, [facility] [place] [facility] [address] [id number] [place] [address]- 5817 Dec, [facility] [place] [facility] [address] [id number] [place] [address]- 6876 Dec, [facility] [place] [facility] [address] [id number] [place] [address]- 9274 Dec, [facility] [place] [facility] [address] [id number] [place] [address]- 2588 Dec, [facility] [place] [facility] [address] [id number] [place] [address]- 2273 Dec, [facility] [place] [facility] [address] [id number] [place] [address]- 7525 Dec, [facility] [place] [facility] [address] [id number] [place] [address]- 7769 Dec, [facility] [place] [facility] [address] [id number] [place] [address]- 7231 Dec, [facility] [place] [facility] [address] [id number] [place] [address]- 8626 Dec, [facility] [place] [facility] [address] [id number] [place] [address]- 0627 Nov, [facility] [place] [facility] [address] [id number] [place] [address]- 7755 Nov, [facility] [place] [facility] [address] [id number] [place] [address]- 4449 Nov, [facility] [place] [facility] [address] [id number] [place] [address]- 5568 Nov, [facility] [place] [facility] [address] [id number] [place] [address]- 8585 Nov, [facility] [place] [facility] [address] [id number] [place] [address]- 3044 Nov, [facility] [place] [facility] [address] [id number] [place] [address]- 8813 Nov, [facility] [place] [facility] [address] [id number] [place] [address]- 3357 Nov, [facility] [place] [facility] [address] [id number] [place] [address]- 5450 Nov, [facility] [place] [facility] [address] [id number] [place] [address]- 0651 Oct, [facility] [place] [facility] [address] [id number] [place] [address]- 2399 Oct, [facility] [place] [facility] [address] [id number] [place] [address]- 0226 Oct, [facility] [place] [facility] [address] [id number] [place] [address]- 3757 Oct, [facility] [place] [facility] [address] [id number] [place] [address]- 3710 Oct, [facility] [place] [facility] [address] [id number] [place] [address]- 8978 Oct, [facility] [place] [facility] [address] [id number] [place] [address]- 8338 Oct, [facility] [place] [facility] [address] [id number] [place] [address]- 9778 Oct, [facility] [place] [facility] [address] [id number] [place] [address]- 8696 Oct, [facility] [place] [facility] [address] [id number] [place] [address]- 4903 Oct, [facility] [place] [facility] [address] [id number] [place] [address]- 4257 September, [facility] [place] [facility] [address] [id number] [place] [address]- 0068 September, [facility] [place] [facility] [address] [id number] [place] [address]- 8786 September, [facility] [place] [facility] [address] [id number] [place] [address]- 0730 September, [facility] [place] [facility] [address] [id number] [place] [address]- 9763 Aug, [facility] [place] [facility] [address] [id number] [place] [address]- 8509 Aug, [facility] [place] [facility] [address] [id number] [place] [address]- 9012 Aug, [facility] [place] [facility] [address] [id number] [place] [address]- 9594 Aug, [facility] [place] [facility] [address] [id number] [place] [address]- 0927 Aug, [facility] [place] [facility] [address] [id number] [place] [address]- 1100 Aug, [facility] [place] [facility] [address] [id number] [place] [address]- 5783 15 Aug, 2013 [facility] [place] [facility] [address] [id number] [place] [address]- 2031 Aug, [facility] [place] [facility] [address] [id number] [place] [address]- 0025 Aug, [facility] [place] [facility] [address] [id number] [place] [address]- 9929 Aug, [facility] [place] [facility] [address] [id number] [place] [address]- 3507 Aug, [facility] [place] [facility] [address] [id number] [place] [address]- 1204 Jul, [facility] [place] [facility] [address] [id number] [place] [address]- 0279 Jul, [facility] [place] [facility] [address] [id number] [place] [address]- 2182 Jul, [facility] [place] [facility] [address] [id number] [place] [address]- 0137 Jul, [facility] [place] [facility] [address] [id number] [place] [address]- 2661 Jul, [facility] [place] [facility] [address] [id number] [place] [address]- 9596 Jul, [facility] [place] [facility] [address] [id number] [place] [address]- 4274 Jun, [facility] [place] [facility] [address] [id number] [place] [address]- 3995 Jun, [facility] [place] [facility] [address] [id number] [place] [address]- 5461 Jun, [facility] [place] [facility] [address] [id number] [place] [address]- 1676 Jun, [facility] [place] [facility] [address] [id number] [place] [address]- 6966 Jun, 2013 [facility] [place] [facility] [address] [id number] [place] [address] 2546 Jun, 2013 [facility] [place] [facility] [address] [id number] [place] [address]- 2546 Jun, 2013 [facility] [place] [facility] [address] [id number] [place] [address]- 8116 Jun, 2013 [facility] [place] [facility] [address] [id number] [place] [address]- 2546 Jun, 2013 [facility] [place] [facility] [address] [id number] [place] [address]- 4026 Jun, 2013 [facility] [place] [facility] [address] [id number] [place] [address]- 9245 Jun, [facility] [place] [facility] [address] [id number] [place] [address]- 0265 Jun, 2013 [facility] [place] [facility] [address] [id number] [place] [address]- 1451 Jun, [facility] [place] [facility] [address] [facility] [id number] [place] [address]- 7876 Jun, [facility] [place] [facility] [address] [facility] [id number] [place] [address]- 0072 Jun, [facility] [place] [facility] [address] [id number] [place] [address]- 2542 Jun, 2013 [facility] [place] [facility] [address] [id number] [place] [address]- 7776 Jun, [facility] [place] [facility] [address] [id number] [place] [address]- 4926 Jun, [facility] [place] [facility] [address] [facility] [id number] [place] [address]- 2403 Jun, 2013 [facility] [place] [facility] [address] [facility] [id number] [place] [address]- 0157 Jun, [facility] [place] [facility] [address] [id number] [place] [address]- 4678 Jun, [facility] [place] [facility] [address] [id number] [place] [address] Jun, [facility] [place] [facility] [address] [id number] [place] [address] May, [facility] [place] [facility] [address] [id number] [place] [address] May, [facility] [place] [facility] [address] [id number] [place] [address] May, [facility] [place] [facility] [address] [id number] [place] [address] May, [facility] [place] [facility] [address] [id number] [place] [address] May, [facility] [place] [facility] [address] [id number] [place] [address] May, [facility] [place] [facility] [address] [id number] [place] [address] May, [facility] [place] [facility] [address] [id number] [place] [address] May, [facility] [place] [facility] [address] [id number] [place] [address] May, [facility] [place] [facility] [address] [id number] [place] [address] May, [facility] [place] [facility] [address] [id number] [place] [address]- [address] May, [facility] [place] [facility] [address] [id number] [place] [address] May, [facility] [place] [facility] [address] [id number] [place] [address] May, [facility] [place] [facility] [address] [id number] [place] [address]- [address] May, [facility] [address] [id number] [place] [address] Apr, [facility] [address] [id number] [place] [address] Apr, [facility] [address] [id number] [place] [address] Apr, [facility] [address] [id number] [place] [address] Apr, [facility] [address] [id number] [place] [address] Apr, [facility] [address] [id number] [place] [address] Apr, [facility] [address] [id number] [place] [address] Apr, [facility] [address] [id number] [place] [address] Apr, [facility] [address] [id number] [place] [address] Mar, [facility] [place] [facility] [address] [id number] [place] [address] Mar, [facility] [place] [facility] [address] [id number], [place] [address] Mar, [facility] [place] [facility] [address] [id number] [place] [address] Mar, [facility] [place] [facility] [address] [id number] [place] [address]- [address] Feb, [facility] [place] [facility] [address] [id number] [place] [address]- [address] Feb, [facility] [place] [facility] [address] [id number] [place] [address] Feb, [facility] [address] [id number] [place] [address] Feb, [facility] [place] [facility] [address] [id number] [place] [address] Feb, [facility] [place] [facility] [address] [id number] [place] [address] Feb, [facility] [place] [facility] [address] [id number] [place] [address] Feb, [facility] [place] [facility] [address] [id number] [place] [address]- [address] Feb, [facility] [place] [facility] [address] [id number] [place] [address] Jan, [facility] [place] [facility] [address] [id number] [place] [address] Oct, [facility] [place] [facility] [address] [id number] [place] [address] September, [facility] [place] [facility] [address] [id number] [place] [address] Jun, [facility] [place] [facility] [address] [id number] [place] [address]- [address] Jun, [facility] [place] [facility] [address] [id number], [place] [address] Jun, [facility] [place] [facility] [address] [id number], [place] [address] Jun, [facility] [place] [facility] [address] [id number] [place] [address]- [address]149 May, [facility] [place] [facility] [address] [id number] [place] [address]- [address] Apr, [facility] [place] [facility] [address] [facility] [id number] [place] [address] Apr, [facility] [place] [facility] [address] [id number] [place] [address] Apr, [facility] [place] [facility] [address] [id number] [place] [address] Apr, [facility] [place] [facility] [address] [id number] [place] [address] Mar, [facility] [place] [facility] [address] [id number] [place] [address] Mar, [facility] [place] [facility] [address] [id number] [place] [address] Jan, [facility] [place] [facility] [address] [id number] [place] [address]- [address] Dec, [facility] [place] [facility] [address] [id number] [place] [address] Dec, [facility] [place] [facility] [address] [id number] [place] [address] 39[address] Dec, [facility] [place] [facility] [address] [id number] [place] [address]- [address] Dec, [facility] [place] [facility] [address] [id number] [place] [address] Nov, [facility] [place] [facility] [address] [id number] [place] [address] Nov, [facility] [place] [facility] [address] [id number] [place] [address] Nov, [facility] [place] [facility] [address] [id number] [place] [address] Nov, [facility] [place] [facility] [address] [id number] [place] [address] Aug, [facility] [place] [facility] [address] [id number] [place] [address] Aug, [facility] [place] [facility] [address] [id number] [place] [address] Jul, [facility] [address] [id number] [place] [address] Jul, [facility] [place] [facility] [address] [id number] [place] [address] Jul, [facility] [place] [facility] [address] [facility] [id number] [place] [address] Jul, [facility] [place] [facility] [address] [id number] [place] [address] Jun, [facility] [place] [facility] [address] [id number] [place] [address] Jun, [facility] [place] [facility] [address] [facility] [id number] [place] [address] 14 Jun, 2011 [facility] [place] [facility] [address] [facility] [id number] [place] [address] Jun, [facility] [place] [facility] [address] [id number] [place] [address] Jun, [facility] [place] [facility] [address] [facility] [id number] [place] [address] Jun, [facility] [place] [facility] [address] [facility] [id number] [place] [address] Jun, [facility] [place] [facility] [address] [facility] [id number] [place] [address] Jun, [facility] [place] [facility] [address] [facility] [id number] [place] [address] Jun, [facility] [place] [facility] [address] [id number] [place] [address] May, [facility] [place] [facility] [address] [id number] [place] [address] May, [facility] [place] [facility] [address] [facility] [id number] [place] [address] May, [facility] [place] [facility] [address] [id number] [place] [address] May, [facility] [place] [facility] [address] [id number] [place] [address] May, [facility] [place] [facility] [address] [id number] [place] [address] Mar, [facility] [place] [facility] [address] [id number] [place] [address] Mar, [facility] [place] [facility] [address] [id number] [place] [address] Mar, [facility] [place] [facility] [address] [id number] [place] [address] Mar, [facility] [place] [facility] [address] [id number] [place] [address] Mar, [facility] [place] [facility] [address] [id number] [place] [address] Feb, [facility] [place] [facility] [address] [id number] [place] [address] Feb, [facility] [place] [facility] [address] [id number] [place] [address] Dec, [facility] [place] [facility] [address] [id number] [place] [address] 30 Apr, 2010 [facility] [place] [facility] [address] [id number] [place] [address] Apr, [facility] [place] [facility] [address] [id number] [place] [address] Apr, [facility] [place] [facility] [address] [id number] [place] [address] 29 Feb, 2010 [facility] [place] [facility] [address] [id number] [place] [address] Feb, [facility] [place] [facility] [address] [id number] [place] [address] 11 Jul, 2009 [facility] [address] [facility] [id number], [place] [address] 15 Jun, 2009 [facility] [address] [facility] [id number], [place] [address] 15 May, 2009 [facility] [id number], [place] [address] 29 Apr, 2009 [facility] [address] [facility] [id number], [place] [address] Apr, [facility] [address] [facility] [id number], [place] [address] Apr, [facility] [address] [facility] [id number], [place] [address] Mar, [facility] [id number], [place] [address] 11 Jul, 2008 [facility] [address] [id number], [place] [address] 16 Jun, 2008 [facility] [id number], [place] [address] 15 Jan, 2008 [facility] [address] [id number], [place] [address] 10 Oct, 2007 [facility] [address] [id number], [place] [address] 13 Sep, 2007 [facility] [id number], [place] [address] 11 Nov, 2006 [facility] [address] [id number], [place] [address] 16 Sep, 2005 [facility] [address] [id number], [place] [address] 17 Dec, 2003 [facility] [address] [id number], [place] [address] 10 Mar, 2003 IMMUNIZATIONS No Known Immunizations SOCIAL HISTORY Never Assessed REASON FOR VISIT OB Concerns PLAN OF CARE VITAL SIGNS MEDICATIONS Unknown [...]
--- OUTSIDE RECORDS SUMMARY | 2018-07-08 18:33 | XMS REPORT ---
Author Author HUGO CHE Organization [facility] [place] Address [address] [place] [address] Care Team Providers Care Supervisor Ore Dressing Name Role Phone HUGO CHE Unavailable PROBLEMS Type Condition ICD9-CM Code TCZ66-ON Code Onset Dates Condition Status SNOMED Code Problem Bipolar disorder, unspecified F31.9 Active [id number] ALLERGIES No Information ENCOUNTERS Encounter Location Date Diagnosis [facility] [place] [id number] [place] [address] 51283- 1675 Apr, [place] [id number] [place] [address] 30287- 2732 Apr, [facility] [place] [id number] [place] [address] 24772- 0543 Apr, [facility] [place] [id number] [place] [address] 24370- 2490 Apr, [place] [id number] [place] [address] 71994- 5516 Feb, First trimester Z34.91 and 10 weeks gestation of Z3A.10 [place] [id number] [place] [address] 45730- 8257 17 Jan, 2018 [facility] [place] [id number] [place] [address] 13533- 6950 Jan, [place] [id number] [place] [address] 22030- 2524 Jan, Normal in multigravida Z34.80 and 9 weeks gestation of Z3A.09 [place] [id number] [place] [address] 33989- 2280 07 Jan, 2018 [place] [id number] [place] [address] 80395- 2724 Jan, Encounter for test, result unknown Z32.00 [place] [id number] [place] [address] 37878- 6613 September, History of fainting spells of unknown cause Z91.89 [facility] [place] [id number] [place] [address] 95440- 7628 Aug, Yeast infection involving the vagina and surrounding area B37.3 ; Bipolar disorder, unspecified F31.9 and Trichomonas vaginalis infection A59.9 [place] [id number] [place] [address] 91939- 9979 Jun, Bipolar disorder, unspecified F31.9 [place] [id number] [place] [address] 89381- 1644 Jun, Encounter for surveillance of injectable contraceptive Z30.42 and Bipolar disorder, unspecified F31.9 [place] [id number] [place] [address] 03928- 1354 May, Encounter for Depo-Provera contraception Z30.42 [facility] [id number] [place] [address] 23655 -1568 Apr, Syncope, unspecified syncope type R55 [place] [id number] [place] [address] 80955- 5674 Mar, Bipolar disorder, unspecified F31.9 and High risk medication use Z79.899 [place] [id number] [place] [address] 94942- 8021 Feb, [place] [address] 12682- 6298 Feb, Encounter for Depo-Provera contraception Z30.42 [facility] [place] [id number] [place] [address] 19427- 0414 Nov, Encounter for Depo-Provera contraception Z30.42 [place] [id number] [place] [address] 65886- 3387 September, [facility] [place] [address] 93125- 6678 Aug, [facility] [place] [id number] [place] [address] 83827- 7199 Aug, Late period N92.6 ; STD exposure Z20.2 ; control counseling Z30.09 and Encounter for Depo-Provera contraception Z30.42 [facility] [address] 81649 -6910 Jul, Body aches R52 ; Influenza A J10.1 ; Impacted cerumen of left ear H61.22 and Acute serous otitis media of left ear, recurrence not specified H65.02 [place] [id number] [place] [address] 73077- 6228 May, [place] [address] 92377- 0541 Apr, Encounter for female control Z30.019 ; Encounter for Depo-Provera contraception Z30.42 and Well woman exam Z01.419 [facility] [address] [id number] Feb, Dental examination Z01.20 [facility] [id number] [place] [address] [id number] Feb, Dental caries K02.9 [facility] [address] [id number] Feb, Dental examination Z01.20 [facility] [id number] [place] [address] 81262 -7975 Dec, Bilateral impacted cerumen H61.23 ; Dizziness R42 and Nausea R11.0 [facility] [place] [address] 46436- 0014 Dec, Encounter for Depo-Provera contraception Z30.42 [place] [id number] [place] [address] 43474- 0400 Oct, Bipolar affective disorder, currently depressed, moderate F31.32 [place] [id number] [place] [address] 51152- 0724 September, Bipolar disorder, unspecified F31.9 [place] [id number] [place] [address] 16258- 7223 September, Bipolar disorder, unspecified F31.9 [place] [id number] [place] [address] 36584- 3105 September, Bipolar disorder, unspecified F31.9 [place] [id number] [place] [address] 82156- 0368 September, Encounter for Depo-Provera contraception Z30.42 [place] [id number] [place] [address] 15355- 7793 Aug, Bipolar disorder, unspecified F31.9 [place] [id number] [place] [address] 25228- 6608 Jun, Encounter for Depo-Provera contraception Z30.42 [place] [id number] [place] [address] 43891- 5221 Apr, URI (upper respiratory infection) J06.9 [place] [id number] [place] [address] 22815- 3576 Mar, Encounter for Depo-Provera contraception Z30.42 [place] [id number] [place] [address] 90956- 9104 Mar, [place] [id number] [place] [address] 22190- 6888 Mar, Generalized anxiety disorder F41.1 and Major depressive disorder, recurrent episode, moderate F33.1 [place] [id number] [place] [address] 84370- 9612 Jan, Esophageal reflux 530.81 ; Depression 311 and Anxiety 300.00 [facility] [place] [address] [place] [address]- 0085 Dec, Depo-Provera contraceptive status V25.49 [facility] [place] [address] [place] [address]- 8567 Dec, test negative V72.41 [facility] [place] [id number] [address]- 9928 Oct, [facility] [place] [id number] [address]- 3586 Oct, [facility] [place] [id number] [place] [address] 70023- 1423 September, [facility] [place] [id number] [address]- 3159 September, [facility] [place] [id number] [place] [address] 08993- 9367 September, [facility] [place] [address] [place] [address]- 1914 September, [facility] [place] [address] [place] [address]- 0502 September, [facility] [place] [address] [address]- 5436 September, [facility] [place] [address] [place] [address]- 9404 September, [facility] [place] [address] [place] [address]- 3069 September, Other general counseling and advice for contraceptive management V25.09 [facility] [place] [address], [place] [address]- 3186 September, [facility] [place] [address], [place] [address]- 3415 September, [facility] [place] [id number] [place] [address]- 4447 September, [facility] [address] [id number] [place] [address]- 8484 September, [facility] [place] [facility] [address] [id number] [place] [address]- 4117 29 Aug, 2014 [facility] [place] [facility] [address] [id number] [place] [address]- 3739 28 Aug, 2014 [facility] [place] [facility] [address] [id number] [place] [address]- 9059 14 Aug, 2014 [facility] [place] [facility] [address] [id number] [place] [address]- 7432 Aug, [facility] [place] [facility] [address] [id number] [place] [address]- 2628 27 Jul, 2014 [facility] [place] [facility] [address] [id number] [place] [address]- 1596 27 Jul, 2014 [facility] [place] [facility] [address] [id number] [place] [address]- 4598 20 Jul, 2014 [facility] [place] [facility] [address] [id number] [place] [address]- 6013 19 Jul, 2014 [facility] [place] [facility] [address] [facility] [id number] [place] [address]- 6113 19 Jul, 2014 [facility] [place] [facility] [address] [id number] [place] [address]- 3002 18 Jul, 2014 [facility] [place] [facility] [address] [facility] [id number] [place] [address]- 2721 18 Jul, 2014 [facility] [place] [facility] [address] [id number] [place] [address]- 9497 16 Jun, 2014 [facility] [place] [facility] [address] [facility] [id number] [place] [address]- 9526 16 Jun, 2014 [facility] [place] [facility] [address] [facility] [id number] [place] [address]- 2671 13 Jun, 2014 [facility] [place] [facility] [address] [id number] [place] [address]- 2199 Jun, 2014 [facility] [place] [facility] [address] [id number] [place] [address]- 4672 02 Jun, 2014 [facility] [place] [facility] [address] [id number] [place] 2966 Jun, [facility] [place] [facility] [address] [id number] [place] [address]- 0614 May, [facility] [place] [facility] [address] [id number] [place] [address]- 8447 May, [facility] [place] [facility] [address] [id number] [place] [address]- 2503 Apr, [facility] [place] [facility] [address] [id number] [place] [address]- 4435 Apr, [facility] [place] [facility] [address] [id number] [place] [address]- 3277 Apr, [facility] [place] [facility] [address] [id number] [place] [address]- 0111 Apr, [facility] [place] [facility] [address] [id number] [place] [address]- 2572 Apr, [facility] [place] [facility] [address] [id number] [address]- 9849 Apr, [facility] [place] [facility] [address] [id number], [place] [address]- 0631 Mar, [facility] [place] [facility] [address] [id number] [place] [address]- 8577 Mar, [facility] [place] [facility] [address] [id number] [place] [address]- 0242 14 Mar, 2014 [facility] [place] [facility] [address] [id number] [place] [address]- 9006 Mar, [facility] [place] [facility] [address] [id number] [place] [address]- 7399 Mar, 2013 [facility] [place] [facility] [address] [id number] [place] [address]- 3733 23 Feb, 2013 [facility] [place] [facility] [address] [id number] [place] [address]- 5582 Feb, 2013 [facility] [place] [facility] [address] [id number] [place] [address]- 7000 Feb, [facility] [place] [facility] [address] [id number] [place] [address]- 2593 Feb, 2013 [facility] [place] [facility] [address] [id number] [place] [address]- 4288 Feb, 2013 [facility] [place] [facility] [address] [id number] [place] [address]- 9223 16 Feb, 2013 [facility] [place] [facility] [address] [id number] [place] [address]- 1847 16 Feb, 2013 [facility] [place] [facility] [address] [id number] [place] [address]- 7566 16 Feb, 2013 [facility] [place] [facility] [address] [id number] [place] [address]- 0141 05 Sep, 2013 [facility] [place] [facility] [address] [id number] [place] [address]- 3593 05 Sep, 2013 [facility] [place] [facility] [address] [id number] [place] [address] 2544 05 Sep, 2013 [facility] [place] [facility] [address] [id number] [place] [address]- 2545 05 Sep, 2013 [facility] [place] [facility] [address] [id number] [place] [address]- 4040 02 Sep, 2013 [facility] [place] [facility] [address] [id number] [place] [address]- 6473 02 Sep, 2013 [facility] [place] [facility] [address] [id number] [place] [address]- 6399 Jan, [facility] [place] [facility] [address] [id number] [place] [address]- 7405 Jan, [facility] [place] [facility] [address] [id number] [place] [address]- 0142 Dec, [facility] [place] [facility] [address] [id number] [place] [address]- 9255 Dec, [facility] [place] [facility] [address] [id number] [place] [address]- 0940 Dec, [facility] [place] [facility] [address] [id number] [place] [address]- 7214 Dec, [facility] [place] [facility] [address] [id number] [place] [address]- 5431 Dec, [facility] [place] [facility] [address] [id number] [place] [address]- 7186 Dec, [facility] [place] [facility] [address] [id number] [place] [address]- 9402 Dec, [facility] [place] [facility] [address] [id number] [place] [address]- 4522 Dec, [facility] [place] [facility] [address] [id number] [place] [address]- 1865 Dec, [facility] [place] [facility] [address] [id number] [place] [address]- 2522 Dec, [facility] [place] [facility] [address] [id number] [place] [address]- 9237 Dec, [facility] [place] [facility] [address] [id number] [place] [address]- 4929 Dec, [facility] [place] [facility] [address] [id number] [place] [address]- 2545 Dec, [facility] [place] [facility] [address] [id number] [place] [address]- 9635 Dec, [facility] [place] [facility] [address] [id number] [place] [address]- 2546 Dec, [facility] [place] [facility] [address] [id number] [place] [address]- 8518 Dec, [facility] [place] [facility] [address] [id number] [place] 4163 Dec, [facility] [place] [facility] [address] [id number] [place] [address]- 7593 Nov, [facility] [place] [facility] [address] [id number] [place] [address]- 8251 Nov, [facility] [place] [facility] [address] [id number] [place] [address]- 6153 Nov, [facility] [place] [facility] [address] [id number] [place] [address]- 3310 Nov, [facility] [place] [facility] [address] [id number] [place] [address]- 4400 Nov, [facility] [place] [facility] [address] [id number] [place] [address]- 3091 Nov, [facility] [place] [facility] [address] [id number] [place] [address]- 4525 Nov, [facility] [place] [facility] [address] [id number] [place] [address]- 7989 Nov, [facility] [place] [facility] [address] [id number] [place] [address]- 1293 Nov, [facility] [place] [facility] [address] [id number] [place] [address]- 9155 Oct, [facility] [place] [facility] [address] [id number] [place] [address]- 1821 Oct, [facility] [place] [facility] [address] [id number] [place] [address]- 8923 Oct, [facility] [place] [facility] [address] [id number] [place] [address]- 8068 Oct, [facility] [place] [facility] [address] [id number] [place] [address]- 6788 Oct, [facility] [address] [id number] [place] [address]- 6565 Oct, [facility] [place] [facility] [address] [id number] [place] [address]- 2494 Oct, [facility] [address] [id number] [place] [address]- 1528 Oct, [facility] [place] [facility] [address] [id number] [place] [address]- 4502 Oct, [facility] [place] [facility] [address] [id number] [place] [address]- 5775 Oct, [facility] [place] [facility] [address] [id number] [place] [address]- 9366 September, [facility] [place] [facility] [address] [id number] [place] [address]- 6287 September, [facility] [address] [id number] [place] [address]- 8202 September, [facility] [place] [facility] [address] [id number] [place] [address]- 7921 September, [facility] [address] [id number] [place] [address]- 4635 Aug, [facility] [place] [facility] [address] [id number] [place] [address]- 7602 Aug, [facility] [place] [facility] [address] [id number] [place] [address]- 9355 Aug, [facility] [place] [facility] [address] [id number] [place] [address]- 7603 Aug, [facility] [place] [facility] [address] [id number] [place] [address]- 3760 Aug, [facility] [place] [facility] [address] [id number] [place] [address]- 0300 Aug, [facility] [place] [facility] [address] [id number] [place] [address]- 8658 Aug, [facility] [place] [facility] [address] [id number] [place] [address]- 7325 Aug, [facility] [place] [facility] [address] [id number] [place] [address]- 3233 Aug, [facility] [place] [facility] [address] [id number] [place] [address]- 1052 Aug, [facility] [place] [facility] [address] [id number] [place] [address]- 2798 Aug, [facility] [place] [facility] [address] [id number] [place] [address]- 9348 Jul, [facility] [place] [facility] [address] [id number] [place] [address]- 5928 Jul, [facility] [place] [facility] [address] [id number] [place] [address]- 2627 Jul, [facility] [place] [facility] [address] [id number] [place] [address]- 2363 Jul, [facility] [place] [facility] [address] [id number] [place] [address]- 1430 Jul, [facility] [place] [facility] [address] [id number] [place] [address]- 4339 Jul, [facility] [place] [facility] [address] [id number] [place] [address]- 4085 Jun, [facility] [place] [facility] [address] [id number] [place] [address]- 8435 Jun, [facility] [place] [facility] [address] [id number] [place] [address]- 9618 Jun, [facility] [place] [facility] [address] [id number] [place] [address]- 4387 Jun, [facility] [place] [facility] [address] [id number] [place] [address] Jun, 2013 [facility] [place] [facility] [address] [id number] [place] [address] Jun, 2013 [facility] [place] [facility] [address] [id number] [place] [address] Jun, 2013 [facility] [place] [facility] [address] [id number] [place] [address] Jun, 2013 [facility] [place] [facility] [address] [id number] [place] [address] Jun, 2013 [facility] [place] [facility] [address] [facility] [id number] [place] [address] Jun, 2013 [facility] [place] [facility] [address] [facility] [id number] [place] [address] Jun, 2013 [facility] [place] [facility] [address] [facility] [id number] [place] [address] Jun, 2013 [facility] [place] [facility] [address] [facility] [id number] [place] [address] Jun, [facility] [place] [facility] [address] [facility] [id number] [place] [address] Jun, [facility] [place] [facility] [address] [facility] [id number] [place] [address] Jun, [facility] [place] [facility] [address] [facility] [id number], [place] [address] Jun, 2013 [facility] [place] [facility] [address] [facility] [id number] [place] [address]69 Jun, [facility] [place] [facility] [address] [facility] [id number] [place] [address] Jun, [facility] [place] [facility] [address] [facility] [id number] [place] [address] Jun, 2013 [facility] [place] [facility] [address] [facility] [id number], [place] [address] Jun, [facility] [place] [facility] [address] [id number] [place] [address] Jun, [facility] [place] [facility] [address] [id number] [place] [address] Jun, [facility] [place] [facility] [address] [id number] [place] [address] May, [facility] [place] [facility] [address] [id number] [place] [address] May, [facility] [place] [facility] [address] [id number] [place] [address]- [address] May, [facility] [place] [facility] [address] [id number] [place] [address] May, [facility] [place] [facility] [address] [id number] [place] [address] May, [facility] [place] [facility] [address] [id number] [place] [address]- [address] May, [facility] [place] [facility] [address] [id number] [place] [address] May, [facility] [place] [facility] [address] [id number] [place] [address]99 May, [facility] [place] [facility] [address] [id number] [place] [address] 284[address] May, [facility] [place] [facility] [address] [id number] [place] [address] May, [facility] [place] [facility] [address] [id number] [place] [address] May, [facility] [place] [facility] [address] [id number] [place] [address] 2213 May, [facility] [place] [facility] [address] [id number] [place] [address]168 May, [facility] [place] [facility] [address] [id number] [place] [address] 137[address] May, [facility] [place] [facility] [address] [id number] [place] [address] Apr, [facility] [place] [facility] [address] [id number] [place] [address] Apr, [facility] [place] [facility] [address] [id number] [place] [address] Apr, [facility] [place] [facility] [address] [id number] [place] [address] Apr, [facility] [place] [facility] [address] [id number] [place] [address] Apr, [facility] [place] [facility] [address] [id number] [place] [address] Apr, [facility] [place] [facility] [address] [id number] [place] [address] Apr, [facility] [place] [facility] [address] [id number] [place] [address]- [address] Apr, [facility] [place] [facility] [address] [id number] [place] [address]- [address] Mar, [facility] [place] [facility] [address] [id number] [place] [address]- [address]27 Mar, [facility] [place] [facility] [address] [id number] [place] [address] Mar, [facility] [place] [facility] [address] [id number] [place] [address] 286[address] Mar, [facility] [place] [facility] [address] [id number] [place] [address]187 Feb, [facility] [place] [facility] [address] [id number] [place] [address] Feb, [facility] [place] [facility] [address] [id number] [place] [address]- [address] Feb, [facility] [place] [facility] [address] [id number] [place] [address]- [address]11 Feb, [facility] [place] [facility] [address] [id number] [place] [address]- 1624 Feb, [facility] [place] [facility] [address] [id number] [place] [address]- [address] Feb, [facility] [place] [facility] [address] [id number] [place] [address] Feb, [facility] [place] [facility] [address] [id number] [place] [address]- 1320 Feb, [facility] [place] [facility] [address] [id number] [place] [address]- [address] Jan, [facility] [place] [facility] [address] [id number] [place] [address] Oct, [facility] [place] [facility] [address] [id number] [place] [address]792 September, [facility] [place] [facility] [address] [id number] [place] [address]- [address] Jun, [facility] [place] [facility] [address] [id number] [place] [address]- [address] Jun, [facility] [place] [facility] [address] [id number], [place] [address] Jun, [facility] [place] [facility] [address] [id number], [place] [address] Jun, [facility] [place] [facility] [address] [id number] [place] [address] May, [facility] [place] [facility] [address] [id number] [place] [address] Apr, [facility] [place] [facility] [address] [id number] [place] [address] Apr, [facility] [place] [facility] [address] [id number] [place] [address] Apr, [facility] [place] [facility] [address] [id number] [place] [address] Apr, [facility] [place] [facility] [address] [id number] [place] [address] Mar, [facility] [place] [facility] [address] [id number] [place] [address] Mar, [facility] [place] [facility] [address] [id number] [place] [address] Jan, [facility] [place] [facility] [address] [id number] [place] [address] Dec, [facility] [place] [facility] [address] [id number] [place] [address] Dec, [facility] [place] [facility] [address] [id number] [place] [address] Dec, [facility] [place] [facility] [address] [id number] [place] [address] Dec, [facility] [place] [facility] [address] [id number] [place] [address] Nov, [facility] [place] [facility] [address] [id number] [place] [address] Nov, [facility] [place] [facility] [address] [id number] [place] [address] Nov, [facility] [place] [facility] [address] [id number] [place] [address] Nov, [facility] [place] [facility] [address] [id number] [place] [address] Aug, [facility] [place] [facility] [address] [id number] [place] [address] Aug, [facility] [place] [facility] [address] [id number] [place] [address] Jul, [facility] [place] [facility] [address] [id number] [place] [address] Jul, [facility] [place] [facility] [address] [id number] [place] [address] Jul, [facility] [place] [facility] [address] [id number] [place] [address] Jul, [facility] [place] [facility] [address] [id number] [place] [address] Jun, [facility] [place] [facility] [address] [id number] [place] [address] Jun, [facility] [place] [facility] [address] [id number] [place] [address]- [address] 14 Jun, 2011 [facility] [place] [facility] [address] [id number] [place] [address] Jun, [facility] [place] [facility] [address] [id number] [place] [address] Jun, [facility] [place] [facility] [address] [id number] [place] [address] Jun, [facility] [place] [facility] [address] [id number] [place] [address] Jun, [facility] [place] [facility] [address] [id number] [place] [address] Jun, [facility] [place] [facility] [address] [id number] [place] [address] Jun, [facility] [place] [facility] [address] [id number] [place] [address] May, [facility] [place] [facility] [address] [id number] [place] [address] May, [facility] [place] [facility] [address] [facility] [id number] [place] [address] May, [facility] [place] [facility] [address] [id number] [place] [address] May, [facility] [place] [facility] [address] [id number] [place] [address] May, [facility] [place] [facility] [address] [id number] [place] [address] Mar, [facility] [place] [facility] [address] [id number] [place] [address] Mar, [facility] [place] [facility] [address] [id number] [place] [address] Mar, [facility] [place] [facility] [address] [id number] [place] [address] Mar, [facility] [place] [facility] [address] [id number] [place] [address]- [address]99 Mar, [facility] [place] [facility] [address] [id number] [place] [address] Feb, [facility] [place] [facility] [address] [id number] [place] [address] Feb, [facility] [place] [facility] [address] [id number] [place] [address] Dec, [facility] [place] [facility] [address] [id number] [place] [address] Apr, [facility] [place] [facility] [address] [id number] [place] [address] 279[address] Apr, [facility] [place] [facility] [address] [id number] [place] [address] Apr, [facility] [place] [facility] [address] [id number] [place] [address] Feb, [facility] [place] [facility] [address] [id number] [place] [address] 58[address] Feb, [facility] [place] [facility] [address] [id number] [place] [address]- [address] 11 Jul, 2009 [facility] [address] [facility] [id number], [place] [address] 15 Jun, 2009 [facility] [address] [facility] [id number], [place] [address] 15 May, 2009 [facility] [address] [id number], [place] [address] 29 Apr, 2009 [facility] [address] [facility] [id number], [place] [address] 11 Apr, 2009 [facility] [address] [facility] [id number], [place] [address] Apr, [facility] [address] [facility] [id number], [place] [address] Mar, [facility] [id number], [place] [address] 11 Jul, 2008 [facility] [address] [id number], [place] [address] 16 Jun, 2008 [facility] [place] [address] [id number], [place] [address] 15 Jan, 2008 [facility] [address] [id number], [place] [address] 10 Oct, 2007 [facility] [place] [id number], [place] [address] 13 Sep, 2007 [facility] [place] [address] [facility] [id number], [place] [address] 11 Nov, 2006 [facility] [place] [address] [id number], [place] [address] 16 Sep, 2005 [facility] [place] [address] [id number], [place] [address] 17 Dec, 2003 [facility] [place] [address] [id number], [place] [address] 10 Mar, 2003 IMMUNIZATIONS No Known Immunizations SOCIAL HISTORY Never Assessed REASON FOR VISIT NST--[place] PLAN OF CARE VITAL SIGNS MEDICATIONS Unknown [...]
--- OUTSIDE RECORDS SUMMARY | 2018-07-08 18:34 | XMS REPORT ---
Author Author ROBERTO FIGUEROA [facility] Address [address] [place] [address] Care Team Providers Care Lead Ingot Molder Name Role Phone ROBERTO FIGUEROA Unavailable PROBLEMS ALLERGIES ENCOUNTERS IMMUNIZATIONS No Known Immunizations SOCIAL HISTORY No smoking Hx information available REASON FOR VISIT PLAN OF CARE VITAL SIGNS MEDICATIONS RESULTS No Results PROCEDURES INSTRUCTIONS MEDICATIONS ADMINISTERED No Known Medications MEDICAL (GENERAL) HISTORY
--- OUTSIDE RECORDS SUMMARY | 2018-07-08 18:34 | XMS REPORT ---
Author Author ROBERTO FIGUEROA [facility] Address [address] [place] [address] Care Team Providers Care [employer] News Reporter Name Role Phone HENRYYADIRA PORTILLOHANY Unavailable PROBLEMS Type Condition ICD9-CM Code GUI71-DH Code Onset Dates Condition Status SNOMED Code Problem Bipolar disorder, unspecified F31.9 Active [id number] ALLERGIES Substance Reaction Event Type Date Status Zoloft Unknown Drug Allergy Jan, Active Prednisone irritable Drug Allergy Jan, Active Vancomycin documented reaction to IV antibiotics during hospitalization. Drug Allergy Jan, Active ENCOUNTERS Encounter Location Date Diagnosis [place] [address] [address] Feb, [place] [address] [place] [id number] [place] [address] 08788- 7800 Jan, [place] [address] [address]- 9449 Jan, [place] [address] [place] [id number] [place] [address] 45478- 9174 Jan, Normal in multigravida Z34.80 and 9 weeks gestation of Z3A.09 [place] [address] [place] [id number] [place] [address] 88102- 1184 Jan, [place] [address] [place] [id number] [place] [address] 63074- 2540 Jan, Encounter for test, result unknown Z32.00 [place] [address] [place] [id number] [place] [address] 76488- 0283 September, History of fainting spells of unknown cause Z91.89 [place] [address] [address]98- 0824 Aug, Yeast infection involving the vagina and surrounding area B37.3 ; Bipolar disorder, unspecified F31.9 and Trichomonas vaginalis infection A59.9 [place] [id number] [place] [address] 94365- 1386 Jun, Bipolar disorder, unspecified F31.9 [facility] [address] [place] [id number] [place] [address] 25068- 4887 Jun, Encounter for surveillance of injectable contraceptive Z30.42 and Bipolar disorder, unspecified F31.9 [facility] [id number] [place] [address] 89636- 2351 May, Encounter for Depo-Provera contraception Z30.42 [facility] [id number] [place] [address] 88254 -9808 Apr, Syncope, unspecified syncope type R55 [place] [address] [place] [id number] [place] [address] 52820- 4781 Mar, Bipolar disorder, unspecified F31.9 and High risk medication use Z79.899 [place] [address] [place] [id number] [place] [address] 71145- 8856 Feb, [place] [id number] [place] [address] 96471- 6740 Feb, Encounter for Depo-Provera contraception Z30.42 [place] [address] [place] [id number] [place] [address] 46666- 0614 Nov, Encounter for Depo-Provera contraception Z30.42 [place] [address] [place] [id number] [place] [address] 81849- 0390 September, [place] [address] [place] [id number] [place] [address] 35550- 0946 Aug, [place] [id number] [place] [address] 07755- 4476 Aug, Late period N92.6 ; STD exposure Z20.2 ; control counseling Z30.09 and Encounter for Depo-Provera contraception Z30.42 [facility] [address] [place] [id number] -[address]390 Jul, Body aches R52 ; Influenza A J10.1 ; Impacted cerumen of left ear H61.22 and Acute serous otitis media of left ear, recurrence not specified H65.02 [place] [id number]- [address] May, [address] [address]- [address]248 Apr, Encounter for female control Z30.019 ; Encounter for Depo-Provera contraception Z30.42 and Well woman exam Z01.419 [facility] [address] [id number] Feb, Dental examination Z01.20 [facility] [address] [place] [address] [id number] Feb, Dental caries K02.9 [facility] [address] [place] [address] [id number] Feb, Dental examination Z01.20 [facility] [address] [place] [address] 35578 -7615 Dec, Bilateral impacted cerumen H61.23 ; Dizziness R42 and Nausea R11.[address] 38993- 5450 Dec, Encounter for Depo-Provera contraception Z30.[address] 90576- 9619 Oct, Bipolar affective disorder, currently depressed, moderate F31.[address] 07810- 6986 September, Bipolar disorder, unspecified F31.9 [place] [id number]- 2546 September, Bipolar disorder, unspecified F31.9 [place] [address] [place] [id number] [place] [address] 03367- 0469 September, Bipolar disorder, unspecified F31.9 [place] [address] [place] [id number] [place] [address] 80210- 2391 September, Encounter for Depo-Provera contraception Z30.42 [place] [address] [place] [id number] [place] [address] 00243- 7407 Aug, Bipolar disorder, unspecified F31.9 [place] [address] 307778- 0433 Jun, Encounter for Depo-Provera contraception Z30.42 [place] [address] [place] [id number] [place] [address] 88863- 8024 Apr, URI (upper respiratory infection) J06.9 [place] [address] [place] [id number] [place] [address] 87501- 9054 Mar, Encounter for Depo-Provera contraception Z30.42 [place] [address] [id number] [place] [address] 05213- 0614 Mar, [place] [address] [place] [id number] [place] [address] 51958- 8512 Mar, Generalized anxiety disorder F41.1 and Major depressive disorder, recurrent episode, moderate F33.1 [place] [address] [place] [id number] [place] [address] 92691- 1200 Jan, Esophageal reflux 530.81 ; Depression 311 and Anxiety 300.00 [place] [address] [place] [id number] [place] [address] 09436- 9611 Dec, Depo-Provera contraceptive status V25.49 [place] [address] [place] [id number] [place] [address] 28937- 6393 Dec, test negative V72.41 [place] [id number] [place] [address]- 8974 Oct, [facility] [address] [id number] [address]- 5457 Oct, [facility] [address] [id number] [place] [address]- 1662 September, [facility] [address] [id number] [place] [address]- 4435 September, [facility] [address] [id number] [place] [address]- 2937 September, [facility] [address] [id number] [place] [address]- 9494 September, [facility] [address] [facility] [id number] [place] [address]- 8527 September, [facility] [address] [facility] [id number] [place] [address]- 1177 September, [facility] [address] [id number] [place] [address]- 8686 September, [facility] [address] [place] [address] [id number] [address]- 1912 September, Other general counseling and advice for contraceptive management V25.09 [facility] [address] [facility] [id number] [place] [address]- 6692 September, [facility] [address] [facility] [id number] [place] [address]- 1202 September, [facility] [address] [facility] [id number] [place] [address]- 2216 September, [facility] [address] [facility] [id number] [place] [address]143 September, [facility] [address] [facility] [id number] [place] [address]- 7573 Aug, [facility] [address] [id number] [place] [address]- 2485 28 Aug, 2014 [facility] [place] [facility] [address] [id number] [place] [address]- 7817 14 Aug, 2014 [facility] [place] [facility] [address] [facility] [id number] [place] [address]- 3292 13 Aug, 2014 [facility] [place] [facility] [address] [facility] [id number] [place] [address]- 5091 27 Jul, 2014 [facility] [place] [facility] [address] [facility] [id number] [place] [address]- 7967 27 Jul, 2014 [facility] [place] [facility] [address] [facility] [id number] [place] [address]- 5690 20 Jul, 2014 [facility] [place] [facility] [address] [facility] [id number] [place] [address]- 8464 19 Jul, 2014 [facility] [place] [facility] [address] [place] [id number] [place] [address]- 2631 19 Jul, 2014 [facility] [place] [facility] [address] [facility] [id number] [place] [address]- 1575 18 Jul, 2014 [facility] [place] [facility] [address] [place] [id number] [place] [address]- 4982 18 Jul, 2014 [facility] [place] [facility] [address] [address] [id number] [place] [address]- 0210 16 Jun, 2014 [facility] [place] [facility] [address] [id number] [place] [address]- 5029 16 Jun, 2014 [facility] [place] [facility] [address] [facility] [id number] [place] [address]- 0715 13 Jun, 2014 [facility] [place] [facility] [address] [id number] [place] [address]- 7772 13 Jun, 2014 [facility] [place] [facility] [address] [facility] [id number] [place] [address]- 2349 02 Jun, 2014 [facility] [place] [facility] [address] [facility] [id number] [place] [address]- 3570 Jun, [facility] [place] [facility] [address] [id number] [place] [address]- 9937 May, [facility] [place] [facility] [address] [id number] [place] [address]- 8565 May, [facility] [place] [facility] [address] [id number] [place] 8706 Apr, [facility] [place] [facility] [address] [id number] [place] [address]- 8736 Apr, [facility] [place] [facility] [address] [id number] [place] 7424 Apr, [facility] [place] [facility] [address] [id number] [place] [address]- 0292 Apr, [facility] [place] [facility] [address] [id number] [place] [address]- 9354 Apr, [facility] [place] [facility] [address] [id number] [place] [address]- 8245 Apr, [facility] [place] [facility] [address] [id number] [place] [address]- 2835 Mar, [facility] [place] [facility] [address] [id number] [place] [address]- 9145 Mar, [facility] [place] [facility] [address] [id number] [place] [address]- 3541 Mar, [facility] [place] [facility] [address] [id number] [place] [address]- 4358 Mar, [facility] [place] [facility] [address] [id number] [place] [address]- 6786 Mar, [facility] [place] [facility] [address] [id number] [place] [address]- 4690 Feb, [facility] [place] [facility] [address] [id number] [place] 5414 Feb, [facility] [place] [facility] [address] [id number] [place] [address]- 2656 Feb, [facility] [place] [facility] [address] [id number] [place] [address]- 4791 Feb, [facility] [place] [facility] [address] [id number] [place] [address]- 8930 Feb, [facility] [place] [facility] [address] [id number] [place] [address]- 5561 Feb, [facility] [place] [facility] [address] [id number] [place] [address]- 9321 Feb, [facility] [place] [facility] [address] [id number] [place] [address]- 2420 Feb, [facility] [place] [facility] [address] [id number] [place] [address]- 7032 05 Sep, 2013 [facility] [place] [facility] [address] [id number] [place] [address]- 4387 05 Sep, 2013 [facility] [place] [facility] [address] [id number] [place] [address]- 8646 05 Jan, 2013 [facility] [place] [facility] [address] [id number] [place] [address]- 6850 05 Sep, 2013 [facility] [place] [facility] [address] [id number] [place] [address]- 9254 Jan, 2013 [facility] [place] [facility] [address] [id number] [place] [address]- 2466 Jan, 2013 [facility] [place] [facility] [address] [id number] [place] [address]- 6541 Jan, 2013 [facility] [place] [facility] [address] [id number] [place] [address]- 7842 Jan, 2013 [facility] [place] [facility] [address] [id number] [place] [address]- 2275 Dec, [facility] [place] [facility] [address] [id number] [place] [address]- 7559 Dec, [facility] [place] [facility] [address] [id number] [place] [address]- 9603 Dec, [facility] [place] [facility] [address] [id number] [place] [address]- 6853 Dec, [facility] [place] [facility] [address] [id number] [place] [address]- 8261 Dec, [facility] [place] [facility] [address] [id number] [place] [address]- 4616 Dec, [facility] [place] [facility] [address] [id number] [place] [address]- 3980 Dec, [facility] [place] [facility] [address] [id number] [place] [address]- 1168 Dec, [facility] [place] [facility] [address] [id number] [place] [address]- 5805 Dec, [facility] [place] [facility] [address] [id number] [place] [address]- 6815 Dec, [facility] [place] [facility] [address] [id number] [place] [address]- 5664 Dec, [facility] [place] [facility] [address] [id number] [place] [address]- 5725 Dec, [facility] [place] [facility] [address] [id number] [place] [address]- 5992 Dec, [facility] [place] [facility] [address] [id number] [place] [address]- 2685 Dec, [facility] [place] [facility] [address] [id number] [place] [address]- 5609 Dec, [facility] [place] [facility] [address] [id number] [place] [address]- 7675 Dec, [facility] [place] [facility] [address] [id number] [place] [address]- 9852 Dec, [facility] [place] [facility] [address] [id number] [place] [address]- 0234 Nov, [facility] [place] [facility] [address] [id number] [place] [address]- 5950 Nov, [facility] [place] [facility] [address] [id number] [place] [address]- 2618 Nov, [facility] [place] [facility] [address] [id number] [place] [address]- 3305 Nov, [facility] [place] [facility] [address] [id number] [place] [address]- 1019 Nov, [facility] [place] [facility] [address] [id number] [place] [address]- 7058 Nov, [facility] [place] [facility] [address] [id number] [place] [address]- 6265 Nov, [facility] [place] [facility] [address] [id number] [place] [address]- 8415 Nov, [facility] [place] [facility] [address] [id number] [place] [address]- 2667 Nov, [facility] [place] [facility] [address] [id number] [place] [address]- 0723 Oct, [facility] [place] [facility] [address] [id number] [place] [address]- 2058 Oct, [facility] [place] [facility] [address] [id number] [place] [address]- 6231 Oct, [facility] [place] [facility] [address] [id number] [place] [address]- 4239 Oct, [facility] [place] [facility] [address] [id number] [place] [address]- 0152 Oct, [facility] [place] [facility] [address] [id number] [place] [address]- 5278 Oct, [facility] [place] [facility] [address] [id number] [place] [address]- 5260 Oct, [facility] [place] [facility] [address] [id number] [place] [address]- 3174 Oct, [facility] [place] [facility] [address] [id number] [place] [address]- 0938 Oct, [facility] [place] [facility] [address] [id number] [place] [address]- 8950 Oct, [facility] [place] [facility] [address] [id number] [place] [address]- 2909 September, [facility] [place] [facility] [address] [id number] [place] [address]- 6937 September, [facility] [place] [facility] [address] [id number] [place] [address]- 9370 September, [facility] [place] [facility] [address] [id number] [place] [address]- 0373 September, [facility] [place] [facility] [address] [id number] [place] [address]- 5318 Aug, [facility] [place] [facility] [address] [id number] [place] [address]- 9499 Aug, [facility] [place] [facility] [address] [id number] [place] [address]- 3347 Aug, [facility] [place] [facility] [address] [id number] [place] [address]- 9874 Aug, [facility] [place] [facility] [address] [id number] [place] [address]- 2575 Aug, [facility] [place] [facility] [address] [id number] [place] [address]- 2236 Aug, [facility] [place] [facility] [address] [id number] [place] [address]- 1393 Aug, [facility] [place] [facility] [address] [id number] [place] [address]- 1624 Aug, [facility] [place] [facility] [address] [id number] [place] [address]- 8254 Aug, [facility] [place] [facility] [address] [id number] [place] [address]- 2369 Aug, [facility] [place] [facility] [address] [id number] [place] [address]- 8056 Aug, [facility] [place] [facility] [address] [id number] [place] [address]- 3700 Jul, [facility] [place] [facility] [address] [id number] [place] [address]- 5256 Jul, [facility] [place] [facility] [address] [id number] [place] [address]- 7114 Jul, [facility] [place] [facility] [address] [id number] [place] [address]- 4724 Jul, [facility] [place] [facility] [address] [facility] [id number] [place] [address]- 8211 Jul, [facility] [place] [facility] [address] [id number] [place] [address]- 6285 Jul, [facility] [place] [facility] [address] [id number] [place] [address]- 4904 Jun, [facility] [place] [facility] [address] [id number] [place] [address]- 8567 Jun, [facility] [place] [facility] [address] [id number] [place] [address]- 0336 Jun, [facility] [place] [facility] [address] [id number] [place] [address]- 3416 Jun, [facility] [place] [facility] [address] [id number] [place] [address]- 9098 Jun, [facility] [place] [facility] [address] [id number] [place] [address]- 4225 Jun, [facility] [place] [facility] [address] [id number] [place] [address]- 4968 Jun, [facility] [place] [facility] [address] [id number] [place] [address]- 1454 24 Jun, 2013 [facility] [place] [facility] [address] [id number] [place] [address]- 4726 Jun, 2013 [facility] [place] [facility] [address] [id number] [place] [address]- 2856 Jun, 2013 [facility] [place] [facility] [address] [id number] [place] [address]- 5194 Jun, 2013 [facility] [place] [facility] [address] [id number] [place] [address]- 7023 Jun, 2013 [facility] [place] [facility] [address] [id number] [place] [address]- 4155 Jun, 2013 [facility] [place] [facility] [address] [facility] [id number] [place] [address]- 2190 Jun, 2013 [facility] [place] [facility] [address] [id number] [place] [address]- 0778 Jun, 2013 [facility] [place] [facility] [address] [facility] [id number] [place] [address]- 1220 Jun, 2013 [facility] [place] [facility] [address] [facility] [id number] [place] [address]- 3618 Jun, 2013 [facility] [place] [facility] [address] [id number] [place] [address]- 3511 Jun, 2013 [facility] [place] [facility] [address] [facility] [id number] [place] [address]- 1356 Jun, 2013 [facility] [place] [facility] [address] [facility] [id number] [place] [address]- 5622 Jun, 2013 [facility] [place] [facility] [address] [facility] [id number] [place] [address]- 3757 Jun, 2013 [facility] [place] [facility] [address] [facility] [id number] [place] [address]- 7465 Jun, 2013 [facility] [place] [facility] [address] [facility] [id number] [place] [address]- 1391 May, [facility] [place] [facility] [address] [id number] [place] [address]- 6542 May, [facility] [place] [facility] [address] [id number] [place] [address] May, [facility] [place] [facility] [address] [id number] [place] [address] May, [facility] [place] [facility] [address] [id number] [place] [address] May, [facility] [place] [facility] [address] [id number] [place] [address] May, [facility] [place] [facility] [address] [id number] [place] [address] May, [facility] [place] [facility] [address] [id number] [place] [address] May, [facility] [place] [facility] [address] [id number] [place] [address] May, [facility] [place] [facility] [address] [id number] [place] [address] May, [facility] [place] [facility] [address] [id number] [place] [address] May, [facility] [place] [facility] [address] [id number] [place] [address] May, [facility] [place] [facility] [address] [id number] [place] [address] May, [facility] [place] [facility] [address] [id number] [place] [address] May, [facility] [place] [facility] [address] [id number] [place] [address] Apr, [facility] [place] [facility] [address] [id number] [place] [address] Apr, [facility] [place] [facility] [address] [id number] [place] [address] Apr, [facility] [address] [id number] [place] [address] Apr, [facility] [place] [facility] [address] [id number] [place] [address] Apr, [facility] [address] [id number] [place] [address] Apr, [facility] [place] [facility] [address] [id number] [place] [address] Apr, [facility] [address] [id number] [place] [address] Apr, [facility] [place] [facility] [address] [id number] [place] [address] Mar, [facility] [place] [facility] [address] [id number] [place] [address] Mar, [facility] [address] [id number] [place] [address] Mar, [facility] [place] [facility] [address] [id number] [place] [address] Mar, [facility] [address] [id number] [place] [address] Feb, [facility] [place] [facility] [address] [id number] [place] [address] Feb, [facility] [place] [facility] [address] [id number] [place] [address] Feb, [facility] [place] [facility] [address] [id number] [place] [address] Feb, [facility] [place] [facility] [address] [id number] [place] [address] Feb, [facility] [place] [facility] [address] [id number] [place] [address] Feb, [facility] [address] [id number] [place] [address] Feb, [facility] [place] [facility] [address] [id number] [place] [address] Feb, [facility] [address] [id number] [place] [address] Jan, [facility] [place] [facility] [address] [id number] [place] [address] Oct, [facility] [address] [id number] [place] [address] September, [facility] [place] [facility] [address] [id number] [place] [address] Jun, [facility] [place] [facility] [address] [id number] [place] [address] Jun, [facility] [address] [id number] [place] [address] Jun, [facility] [address] [id number] [place] [address] Jun, [facility] [place] [facility] [address] [id number] [place] [address] May, [facility] [place] [facility] [address] [id number] [place] [address] Apr, [facility] [place] [facility] [address] [id number] [place] [address] Apr, [facility] [place] [facility] [address] [id number] [place] [address]- [address] Apr, [facility] [place] [facility] [address] [id number] [place] [address]- [address] Apr, [facility] [place] [facility] [address] [id number] [place] [address] Mar, [facility] [place] [facility] [address] [id number] [place] [address]- [address] 16 Mar, 2012 [facility] [place] [facility] [address] [id number] [place] [address] Jan, [facility] [place] [facility] [address] [id number] [place] [address]- [address] Dec, [facility] [place] [facility] [address] [id number] [place] [address]- [address] Dec, [facility] [place] [facility] [address] [id number] [place] [address]- [address] Dec, [facility] [place] [facility] [address] [id number] [place] [address]- [address] Dec, [facility] [place] [facility] [address] [id number] [place] [address]- [address] Nov, [facility] [place] [facility] [address] [id number] [place] [address] Nov, [facility] [place] [facility] [address] [id number] [place] [address] Nov, [facility] [place] [facility] [address] [id number] [place] [address] Nov, [facility] [place] [facility] [address] [id number] [place] [address] Aug, [facility] [place] [facility] [address] [id number] [place] [address] Aug, [facility] [place] [facility] [address] [id number] [place] [address] Jul, [facility] [place] [facility] [address] [id number] [place] [address] Jul, [facility] [place] [facility] [address] [id number] [place] [address] Jul, [facility] [place] [facility] [address] [id number] [place] [address] Jul, [facility] [place] [facility] [address] [id number] [place] [address] Jun, [facility] [place] [facility] [address] [id number] [place] [address] Jun, [facility] [place] [facility] [address] [id number] [place] [address] 14 Jun, 2011 [facility] [place] [facility] [address] [id number] [place] [address] Jun, [facility] [place] [facility] [address] [id number] [place] [address] Jun, [facility] [place] [facility] [address] [id number] [place] [address] 08 Jun, 2011 [facility] [place] [facility] [address] [id number] [place] [address] Jun, [facility] [place] [facility] [address] [id number] [place] [address] Jun, [facility] [place] [facility] [address] [id number] [place] [address] Jun, [facility] [place] [facility] [address] [id number] [place] [address] May, [facility] [place] [facility] [address] [id number] [place] [address] May, [facility] [place] [facility] [address] [id number] [place] [address] May, [facility] [place] [facility] [address] [id number] [place] [address] May, [facility] [place] [facility] [address] [id number] [place] [address] May, [facility] [place] [facility] [address] [id number] [place] [address] Mar, [facility] [place] [facility] [address] [id number] [place] [address] Mar, [facility] [address] [id number] [place] [address] Mar, [facility] [place] [facility] [address] [id number] [place] [address] Mar, [facility] [place] [facility] [address] [id number] [place] [address] Mar, [facility] [place] [facility] [address] [id number] [place] [address] Feb, [facility] [place] [facility] [address] [id number] [place] [address] Feb, [facility] [place] [facility] [address] [id number] [place] [address] Dec, [facility] [address] [id number] [place] [address] Apr, [facility] [place] [facility] [address] [id number] [place] [address] Apr, [facility] [place] [facility] [address] [id number] [place] [address] Apr, [facility] [place] [facility] [address] [facility] [id number] [place] [address] 29 Feb, 2010 [facility] [place] [facility] [address] [id number] [place] [address] Feb, [facility] [place] [facility] [address] [id number] [place] [address] Jul, [facility] [place] [facility] [address] [id number] [place] [address] 15 Jun, 2009 [facility] [place] [facility] [address] [id number] [place] [address] May, [facility] [place] [facility] [address] [id number] [place] [address] 29 Apr, 2009 [facility] [address] [id number] [address] Apr, [facility] [id number] [place] [address] Apr, [facility] [id number] [place] [address] Mar, [facility] [id number] [place] [address] Jul, [facility] [id number] [place] [address] 16 Jun, 2008 [facility] [id number] [place] [address] 15 Jan, 2008 [facility] [id number] [place] [address] 10 Oct, 2007 [facility] [id number] [place] [address] September, [facility] [id number] [place] [address] 11 Nov, 2006 [facility] [id number] [place] [address] 16 Sep, 2005 [facility] [id number] [address] 17 Dec, 2003 [facility] [id number] [place] [address] 10 Mar, 2003 IMMUNIZATIONS No Known Immunizations SOCIAL HISTORY Never Assessed REASON FOR VISIT OB Flowsheet History PLAN OF CARE VITAL SIGNS MEDICATIONS Unknown [...]
--- OUTSIDE RECORDS SUMMARY | 2018-07-08 18:35 | XMS REPORT ---
Author Author EMMA BERG [facility] IN [facility] Address [address] [place] [address] Care Team Providers Care Tobacco Sorter Name Role Phone EMMA BERG Unavailable PROBLEMS Type Condition ICD9-CM Code [id number] Code Onset Dates Condition Status SNOMED Code Problem Bipolar disorder, unspecified F31.9 Active [id number] ALLERGIES Substance Reaction Event Type Date Status Zoloft Unknown Drug Allergy September, Active Prednisone irritable Drug Allergy September, Active Vancomycin documented reaction to IV antibiotics during hospitalization. Drug Allergy September, Active ENCOUNTERS Encounter Location Date Diagnosis [place] [address] [address] September, History of fainting spells of unknown cause Z91.89 [place] [address] [place] [id number] [place] [address]88- 8515 Aug, Yeast infection involving the vagina and surrounding area B37.3 ; Bipolar disorder, unspecified F31.9 and Trichomonas vaginalis infection A59.9 [place] [address] [place] [id number] [place] [address] 41688- 4871 Jun, Bipolar disorder, unspecified F31.9 [place] [address] [place] [id number] [place] [address] 46173- 6130 Jun, Encounter for surveillance of injectable contraceptive Z30.42 and Bipolar disorder, unspecified F31.9 [place] [address] 45204- 4658 May, Encounter for Depo-Provera contraception Z30.42 [facility] [id number] [place] [address] 39186 -1775 Apr, Syncope, unspecified syncope type R55 [facility] [address] [place] [address] [id number] [place] [address] 96743- 4718 Mar, Bipolar disorder, unspecified F31.9 and High risk medication use Z79.899 [place] [address] [place] [id number] [place] [address] 16883- 5314 Feb, [facility] [address] [address]12- 9700 Feb, Encounter for Depo-Provera contraception Z30.42 [facility] [address] 22566- 6709 Nov, Encounter for Depo-Provera contraception Z30.42 [place] [address] 50995- 2835 September, [place] [address] 52885- 8478 Aug, [place] [address] 65374- 6389 Aug, Late period N92.6 ; STD exposure Z20.2 ; control counseling Z30.09 and Encounter for Depo-Provera contraception Z30.42 [facility] [address] [place] [address] [id number] [place] [address] 80938 -4135 Jul, Body aches R52 ; Influenza A J10.1 ; Impacted cerumen of left ear H61.22 and Acute serous otitis media of left ear, recurrence not specified H65.02 [facility] [address] [place] [id number] [place] [address] 88198- 5513 May, [place] [address] 99579- 5598 Apr, Encounter for Depo-Provera contraception Z30.42 ; Encounter for female control Z30.019 and Well woman exam Z01.419 [facility] [address] [id number] Feb, Dental examination Z01.20 [facility] [id number] [place] [address] [id number] Feb, 2016 Dental caries K02.9 [facility] [address] [place] [id number] [place] [address] [id number] Feb, 2016 Dental examination Z01.20 [facility] [address] [place] [id number] [place] [address] 15625 -6320 Dec, Bilateral impacted cerumen H61.23 ; Dizziness R42 [address] R11.0 [facility] [address] 38147- 4720 Dec, Encounter for Depo-Provera contraception Z30.42 [place] [address] 64591- 4650 Oct, Bipolar affective disorder, currently depressed, moderate F31.32 [place] [address] 87573- 3716 September, Bipolar disorder, unspecified F31.9 [facility] [address] [place] [id number] [place] [address] 88688- 5695 September, Bipolar disorder, unspecified F31.9 [place] [address] [place] [address] [id number] [place] [address] 21198- 6504 September, Bipolar disorder, unspecified F31.9 [place] [address] [place] [address] [id number] [place] [address] 62925- 7359 September, Encounter for Depo-Provera contraception Z30.42 [facility] [address] [place] [address] [id number] [place] [address] 02108- 5092 Aug, Bipolar disorder, unspecified F31.9 [place] [address] 22098- 8311 Jun, Encounter for Depo-Provera contraception Z30.42 [place] [address] 45657- 5439 Apr, URI (upper respiratory infection) J06.9 [facility] [address] [address] [id number] [address]- 3552 Mar, Encounter for Depo-Provera contraception Z30.42 [facility] [address] [place] [address] [id number] [place] [address] 98509- 6332 Mar, [facility] [address] [place] [address] [id number] [place] [address] 56029- 1731 Mar, Generalized anxiety disorder F41.1 and Major depressive disorder, recurrent episode, moderate F33.1 [facility] [address] [place] [address] [id number] [place] [address] 39631- 8514 Jan, Esophageal reflux 530.81 ; Depression [address] [facility] [address] [place] [id number] [place] [address] 30719- 9686 Dec, Depo-Provera contraceptive status V25.49 [facility] [address] [place] [address] [id number] [place] [address] 31700- 9091 Dec, test negative V72.41 [facility] [address] [place] [id number] [place] [address] 69194- 1824 Oct, [facility] [address] [place] [id number] [place] [address] 82480- 7533 Oct, [facility] [id number] [place] [address] 38804- 2308 September, [facility] [address] [place] [id number] [place] [address] 04745- 4155 September, [facility] [address] [id number] [place] [address] 54222- 8833 September, [facility] [address] [id number] [place] [address] 33808- 7496 September, [facility] [address] [place] [id number] [place] [address] 45561- 5274 September, [facility] [id number] [place] [address]- 2077 September, [facility] [address] [id number] [address]- 8867 September, [facility] [address] [id number] [address]- 8932 September, Other general counseling and advice for contraceptive management V25.09 [facility] [address] [id number] [place] [address]- 5808 September, [facility] [address] [id number] [place] [address]- 4777 September, [facility] [address] [id number] [address]- 3142 September, [facility] [address] [facility] [id number] [address]- 1305 September, [facility] [address] [facility] [id number] [place] [address]- 1488 29 Aug, 2014 [facility] [address] [id number] [place] [address]- 4622 28 Aug, 2014 [facility] [address] [facility] [id number] [place] [address]- 5269 14 Aug, 2014 [facility] [address] [id number] [place] [address]- 8679 Aug, [facility] [address] [id number] [address]- 0181 Jul, [facility] [address] [id number] [address]- 5733 Jul, [facility] [address] [id number] [address]- 9210 20 Jul, 2014 [facility] [address] [id number] [address]- 8285 Jul, [facility] [address] [id number] [place] [address]- 6416 Jul, [facility] [place] [facility] [address] [id number] [place] [address]- 0830 Jul, [facility] [place] [facility] [address] [id number] [place] [address]898 Jul, 2014 [facility] [place] [facility] [address] [id number] [place] [address]- 6386 Jun, 2014 [facility] [place] [facility] [address] [id number] [place] [address]- 7705 Jun, 2014 [facility] [place] [facility] [address] [id number] [place] [address]- 6141 Jun, 2014 [facility] [place] [facility] [address] [facility] [id number] [place] [address]- 0684 Jun, 2014 [facility] [place] [facility] [address] [facility] [id number] [place] [address]- 8457 Jun, [facility] [place] [facility] [address] [facility] [id number] [place] [address]- 8263 Jun, [facility] [place] [facility] [address] [facility] [id number] [place] [address]- 5743 May, [facility] [place] [facility] [address] [facility] [id number] [place] [address]- 4464 May, [facility] [place] [facility] [address] [id number] [place] [address]- 1050 Apr, [facility] [place] [facility] [address] [id number] [place] [address]- 8916 Apr, [facility] [place] [facility] [address] [id number] [place] [address]- 7862 Apr, [facility] [place] [facility] [address] [facility] [id number] [place] [address]- 3761 Apr, [facility] [place] [facility] [address] [facility] [id number] [place] [address]- 0428 Apr, [facility] [place] [facility] [address] [id number] [place]- 5732 Apr, [facility] [place] [facility] [address] [id number] [place] [address]- 5140 Mar, [facility] [place] [facility] [address] [id number] [place] 8040 Mar, [facility] [place] [facility] [address] [id number] [place] [address]- 1501 Mar, [facility] [place] [facility] [address] [id number] [place] [address]- 9032 Mar, [facility] [place] [facility] [address] [id number] [place] [address]- 1074 Mar, [facility] [place] [facility] [address] [id number] [place] [address]- 5963 Feb, [facility] [place] [facility] [address] [id number] [place] [address]- 1618 Feb, [facility] [place] [facility] [address] [id number] [place] [address]- 3388 Feb, [facility] [place] [facility] [address] [id number] [place] [address]- 2958 Feb, [facility] [place] [facility] [address] [id number] [place] [address]- 3406 Feb, [facility] [place] [facility] [address] [id number] [address]- 3906 Feb, [facility] [place] [facility] [address] [id number] [place] [address]- 6481 Feb, [facility] [place] [facility] [address] [id number] [place] 6875 Feb, [facility] [place] [facility] [address] [id number] [address]- 5061 05 Jan, 2014 [facility] [place] [facility] [address] [id number] [place] [address]- 3640 Jan, 2013 [facility] [place] [facility] [address] [id number] [place] [address]- 0588 Jan, 2013 [facility] [place] [facility] [address] [id number] [place] [address]- 5556 Jan, 2013 [facility] [place] [facility] [address] [id number] [place] [address]- 5003 Jan, 2013 [facility] [place] [facility] [address] [id number] [place] [address]- 1424 Jan, 2013 [facility] [place] [facility] [address] [id number] [place] [address]- 6270 Jan, 2013 [facility] [place] [facility] [address] [id number] [place] [address]- 1932 Jan, 2013 [facility] [place] [facility] [address] [id number] [place] [address]- 4756 Dec, [facility] [place] [facility] [address] [id number] [place] [address]- 0762 Dec, [facility] [place] [facility] [address] [id number] [place] [address]- 5120 Dec, [facility] [place] [facility] [address] [id number] [place] [address]- 8483 Dec, [facility] [place] [facility] [address] [id number] [place] [address]- 2874 Dec, [facility] [place] [facility] [address] [id number] [place] [address]- 7307 Dec, [facility] [place] [facility] [address] [id number] [place] [address]- 8728 Dec, [facility] [place] [facility] [address] [id number] [place] [address]- 4179 Dec, [facility] [place] [facility] [address] [id number] [place] [address]- 5177 Dec, [facility] [place] [facility] [address] [id number] [place] [address]- 9460 Dec, [facility] [place] [facility] [address] [id number] [place] [address]- 8601 Dec, [facility] [place] [facility] [address] [id number] [place] [address]- 6193 Dec, [facility] [place] [facility] [address] [id number] [place] [address]- 6553 Dec, [facility] [place] [facility] [address] [id number] [place] [address]- 2633 Dec, [facility] [place] [facility] [address] [id number] [place] [address]- 3716 Dec, [facility] [place] [facility] [address] [id number] [place] [address]- 5402 Dec, [facility] [place] [facility] [address] [id number] [place] [address]- 8202 Dec, [facility] [place] [facility] [address] [id number] [place] [address]- 0368 Nov, [facility] [place] [facility] [address] [id number] [place] [address]- 9584 Nov, [facility] [place] [facility] [address] [id number] [place] [address]- 6900 Nov, [facility] [place] [facility] [address] [id number] [place] [address]- 5192 Nov, [facility] [place] [facility] [address] [id number] [place] [address]- 5312 Nov, [facility] [place] [facility] [address] [id number] [place] [address]- 5273 Nov, [facility] [place] [facility] [address] [id number] [place] 1534 Nov, [facility] [place] [facility] [address] [id number] [place] [address]- 1258 Nov, [facility] [place] [facility] [address] [id number] [place] [address]- 7493 Nov, [facility] [place] [facility] [address] [id number] [place] [address]- 7110 Oct, [facility] [place] [facility] [address] [id number] [place] [address]- 6505 Oct, [facility] [place] [facility] [address] [id number] [place] [address]- 4474 Oct, [facility] [place] [facility] [address] [id number] [place] [address]- 4738 Oct, [facility] [place] [facility] [address] [id number] [place] [address]- 4832 Oct, [facility] [place] [facility] [address] [id number] [place] [address]- 2365 Oct, [facility] [place] [facility] [address] [id number] [place] [address]- 0683 Oct, [facility] [place] [facility] [address] [id number] [place] [address]- 0900 Oct, [facility] [place] [facility] [address] [id number] [place] [address]- 9649 Oct, [facility] [place] [facility] [address] [id number] [place] [address]- 2413 Oct, [facility] [place] [facility] [address] [id number] [place] [address]- 5681 September, [facility] [place] [facility] [address] [id number] [place] [address]- 1559 September, [facility] [place] [facility] [address] [id number] [place] [address]- 0095 September, [facility] [place] [facility] [address] [id number] [place] [address]- 7077 September, [facility] [place] [facility] [address] [id number] [place] [address]- 8956 29 Aug, 2013 [facility] [place] [facility] [address] [id number] [place] [address]- 1600 Aug, [facility] [place] [facility] [address] [id number] [place] [address]- 1828 Aug, [facility] [place] [facility] [address] [id number] [place] [address]- 7389 Aug, [facility] [place] [facility] [address] [id number] [place] [address]- 7165 Aug, [facility] [place] [facility] [address] [id number] [place] [address]- 2879 Aug, [facility] [place] [facility] [address] [id number] [place] [address]- 0692 Aug, [facility] [place] [facility] [address] [id number] [place] [address]- 3506 Aug, [facility] [place] [facility] [address] [id number] [place] [address]- 3175 Aug, [facility] [place] [facility] [address] [id number] [place] [address]- 7273 Aug, [facility] [place] [facility] [address] [id number] [place] [address]- 4389 Aug, [facility] [place] [facility] [address] [id number] [place] [address]- 5354 24 Jul, 2013 [facility] [place] [facility] [address] [id number] [place] [address]- 0445 24 Jul, 2013 [facility] [place] [facility] [address] [id number] [place] [address]- 7885 10 Jul, 2013 [facility] [place] [facility] [address] [id number] [place] [address]- 8585 10 Jul, 2013 [facility] [place] [facility] [address] [id number] [place] [address]- 3502 06 Jul, 2013 [facility] [place] [facility] [address] [id number] [place] [address]- 0941 Jul, [facility] [place] [facility] [address] [id number] [place] [address]- 8566 Jun, [facility] [place] [facility] [address] [id number] [place] [address]- 7436 Jun, [facility] [place] [facility] [address] [id number] [place] [address]- 3111 Jun, [facility] [place] [facility] [address] [id number] [place] [address]- 3137 Jun, [facility] [place] [facility] [address] [id number] [place] [address]- 5189 Jun, [facility] [place] [facility] [address] [facility] [id number] [place] [address]- 9361 Jun, [facility] [place] [facility] [address] [id number] [place] [address]- 7138 Jun, [facility] [place] [facility] [address] [id number] [place] [address]- 3817 Jun, [facility] [place] [facility] [address] [facility] [id number] [place] [address]- 5309 Jun, [facility] [place] [facility] [address] [facility] [id number] [place] [address]- 8607 Jun, [facility] [place] [facility] [address] [id number] [place] [address]- 2542 Jun, [facility] [place] [facility] [address] [id number] [place] [address]- 1863 Jun, [facility] [place] [facility] [address] [id number] [place] [address]- 9611 Jun, [facility] [place] [facility] [address] [facility] [id number] [place] [address]- 2915 Jun, [facility] [place] [facility] [address] [id number] [place] [address]- 7305 Jun, [facility] [place] [facility] [address] [id number] [place] [address]- 7166 Jun, [facility] [place] [facility] [address] [id number] [place] [address]- 8176 Jun, [facility] [place] [facility] [address] [id number] [place] [address]- 7346 Jun, [facility] [place] [facility] [address] [id number] [place] [address]- 7270 Jun, [facility] [place] [facility] [address] [id number] [place] [address]- 5577 Jun, [facility] [place] [facility] [address] [id number] [place] [address]- 3395 Jun, [facility] [place] [facility] [address] [id number] [place] [address]- 4440 Jun, [facility] [place] [facility] [address] [id number] [place] [address]- 0532 May, [facility] [place] [facility] [address] [facility] [id number] [place] [address]- 7121 May, [facility] [place] [facility] [address] [id number] [place] [address]- 8113 May, [facility] [place] [facility] [address] [id number] [place] [address]- 2298 May, [facility] [place] [facility] [address] [id number] [place] [address]- 3688 May, [facility] [place] [facility] [address] [id number] [place] [address]- 4192 May, [facility] [place] [facility] [address] [id number] [place] [address]- 1024 May, [facility] [place] [facility] [address] [id number] [place] [address]- 2546 16 May, 2013 [facility] [place] [facility] [address] [id number] [place] [address]- 8913 15 May, 2013 [facility] [place] [facility] [address] [id number] [place] [address]- 7976 15 May, 2013 [facility] [place] [facility] [address] [id number] [place] [address]- 3481 14 May, 2013 [facility] [place] [facility] [address] [id number] [place] [address] May, [facility] [place] [facility] [address] [id number] [place] [address] May, [facility] [place] [facility] [address] [id number] [place] [address] May, [facility] [place] [facility] [address] [id number] [place] [address] 18 Apr, 2013 [facility] [place] [facility] [address] [id number] [place] [address] 18 Apr, 2013 [facility] [place] [facility] [address] [id number] [place] [address] Apr, [facility] [place] [facility] [address] [id number] [place] [address] Apr, [facility] [place] [facility] [address] [id number] [place] [address] 05 Apr, 2013 [facility] [place] [facility] [address] [id number] [place] [address] 05 Apr, 2013 [facility] [place] [facility] [address] [id number] [place] [address] Apr, [facility] [place] [facility] [address] [id number] [place] [address] Apr, [facility] [place] [facility] [address] [id number] [place] [address] Mar, [facility] [place] [facility] [address] [id number] [place] [address] Mar, [facility] [address] [id number] [place] [address] Mar, [facility] [place] [facility] [address] [id number] [place] [address] Mar, [facility] [address] [id number] [place] [address] Feb, [facility] [place] [facility] [address] [id number] [place] [address] Feb, [facility] [place] [facility] [address] [id number] [place] [address] Feb, [facility] [place] [facility] [address] [id number] [place] [address] Feb, [facility] [place] [facility] [address] [id number] [place] [address] Feb, [facility] [place] [facility] [address] [id number] [place] [address] Feb, [facility] [place] [facility] [address] [id number] [place] [address] Feb, [facility] [place] [facility] [address] [facility] [id number] [place] [address] Feb, [facility] [place] [facility] [address] [id number] [place] [address] Jan, [facility] [place] [facility] [address] [id number] [place] [address] Oct, [facility] [place] [facility] [address] [id number] [place] [address] September, [facility] [place] [facility] [address] [id number] [place] [address] Jun, [facility] [place] [facility] [address] [id number] [place] [address] Jun, [facility] [place] [facility] [address] [id number] [place] [address] Jun, [facility] [place] [facility] [address] [id number] [place] [address] Jun, [facility] [place] [facility] [address] [id number] [place] [address] May, [facility] [place] [facility] [address] [id number] [place] [address] Apr, [facility] [place] [facility] [address] [id number] [place] [address] Apr, [facility] [place] [facility] [address] [id number] [place] [address] Apr, [facility] [place] [facility] [address] [id number] [place] [address] Apr, [facility] [place] [facility] [address] [id number] [place] [address] Mar, [facility] [place] [facility] [address] [id number] [place] [address] Mar, [facility] [place] [facility] [address] [id number] [place] [address] Jan, [facility] [place] [facility] [address] [id number] [place] [address] Dec, [facility] [place] [facility] [address] [id number] [place] [address] Dec, [facility] [place] [facility] [address] [id number] [place] [address] Dec, [facility] [place] [facility] [address] [id number] [place] [address] Dec, [facility] [place] [facility] [address] [id number] [place] [address] Nov, [facility] [place] [facility] [address] [id number] [place] [address] Nov, [facility] [address] [id number] [place] [address] Nov, [facility] [place] [facility] [address] [id number] [place] [address] Nov, [facility] [address] [id number] [place] [address] Aug, [facility] [place] [facility] [address] [id number] [place] [address] 25[address] Aug, [facility] [address] [id number] [place] [address] Jul, [facility] [place] [facility] [address] [id number] [place] [address] Jul, [facility] [place] [facility] [address] [facility] [id number] [place] [address] Jul, [facility] [place] [facility] [address] [id number] [place] [address] Jul, [facility] [place] [facility] [address] [id number] [place] [address] Jun, [facility] [place] [facility] [address] [facility] [id number] [place] [address] Jun, [facility] [place] [facility] [address] [facility] [id number] [place] [address] 14 Jun, 2011 [facility] [place] [facility] [address] [facility] [id number] [place] [address] 13 Jun, 2011 [facility] [place] [facility] [address] [id number] [place] [address] 09 Jun, 2011 [facility] [place] [facility] [address] [facility] [id number] [place] [address] 08 Jun, 2011 [facility] [place] [facility] [address] [facility] [id number] [place] [address] Jun, [facility] [place] [facility] [address] [id number] [place] [address] Jun, [facility] [place] [facility] [address] [id number] [place] [address] Jun, [facility] [place] [facility] [address] [id number] [place] [address] May, [facility] [place] [facility] [address] [id number] [place] [address] May, [facility] [place] [facility] [address] [id number] [place] [address] May, [facility] [place] [facility] [address] [id number] [place] [address] May, [facility] [place] [facility] [address] [id number] [place] [address] May, [facility] [place] [facility] [address] [id number] [address] Mar, [facility] [place] [facility] [address] [id number] [place] [address] Mar, [facility] [place] [facility] [address] [id number] [place] [address] Mar, [facility] [place] [facility] [address] [id number] [address] Mar, [facility] [place] [facility] [address] [id number] [place] [address] Mar, [facility] [place] [facility] [address] [id number] [place] [address] Feb, [facility] [place] [facility] [address] [id number] [address] Feb, [facility] [place] [facility] [address] [id number] [place] [address] Dec, [facility] [place] [facility] [address] [id number] [place] [address] 30 Apr, 2010 [facility] [address] [id number] [place] [address] 07 Apr, 2010 [facility] [place] [facility] [address] [id number] [place] [address] 03 Apr, 2010 [facility] [address] [id number] [place] [address] 2546 29 Feb, 2010 [facility] [place] [facility] [address] [id number] [place] [address] 2546 11 Feb, 2010 [facility] [address] [id number] [place] [address] 11 Jul, 2009 [facility] [place] [facility] [address] [id number] [place] [address] 15 Jun, 2009 [facility] [address] [facility] [id number] [place] [address] 15 May, 2009 [facility] [address] [facility] [id number] [place] [address] 29 Apr, 2009 [facility] [address] [facility] [id number] [place] [address] Apr, [facility] [address] [facility] [id number] [place] [address] Apr, [facility] [place] [facility] [address] [id number] [place] [address] 2546 25 Mar, 2009 [facility] [place] [facility] [address] [facility] [id number] [place] [address] 2544 11 Jul, 2008 [facility] [place] [facility] [address] [id number] [place] [address] 2546 16 Jun, 2008 [facility] [place] [facility] [address] [facility] [id number] [place] [address] 2546 15 Jan, 2008 [facility] [place] [facility] [address] [facility] [id number] [place] [address] 2540 [address] [address] [facility] [address] [facility] [id number] [place] [address] September, [facility] [address] [facility] [id number] [address] Nov, [facility] [address] [facility] [id number] [address] September, [facility] [address] [facility] [id number] [address] Dec, [facility] [address] [facility] [id number] [place] [address] Mar, IMMUNIZATIONS No Known Immunizations SOCIAL HISTORY Never Assessed REASON FOR VISIT Fainting, states she has had this ongoing for the last couple of years, but is worsening more lately[facility] Activity Details Follow Up 4 Weeks, prn Reason:if symptoms persist VITAL SIGNS Height 59 in 2017-10-10 Weight 120.5 lbs 2017-10-10 Temperature 98.5 degrees Fahrenheit 2017-10-10 Heart Rate 78 bpm 2017-10-10 Respiratory Rate 18 2017-10-10 BMI 24.34 kg/m2 2017-10-10 Blood pressure systolic 110 mmHg 2017-10-10 Blood pressure diastolic 72 mmHg 2017-10-10 MEDICATIONS Medication Instructions Dosage Frequency Start Date End Date Duration Status Depo-Provera 150 MG/ML 1 ml Active Latuda 40 mg Orally Once a day 1 tablet with food 24h Jun, 30 day(s) Not-Taking RESULTS No Results PROCEDURES Procedure Date Ordered Result Body Site EKG, TRACING (IN-HOUSE) 2017-10-10 Appropriate ELECTROCARDIOGRAM, TRACING October 10, 2017 LAB NOT BILLED BY [facility] October 10, 2017 GLUCOSE BLOOD TEST October 10, 2017 INSTRUCTIONS MEDICATIONS ADMINISTERED No Known Medications MEDICAL [...]
--- OUTSIDE RECORDS SUMMARY | 2018-07-08 18:35 | XMS REPORT ---
Author Author HENRY ROBERTO [facility] Address [address] [place] [address] Care Team Providers Care Photographic Processor Name Role Phone HENRYYADIRA PORTILLOHANY Unavailable PROBLEMS Type Condition ICD9-CM Code BGA87-DI Code Onset Dates Condition Status SNOMED Code Problem Bipolar disorder, unspecified F31.9 Active [id number] ALLERGIES No Information ENCOUNTERS Encounter Location Date Diagnosis [place] [id number] [place] [address] 97991- 6604 Feb, [place] [id number] [place] [address] 68537- 8783 Jan, [place] [id number] [place] [address] 92876- 2056 Jan, [place] [id number] [place] [address] 42870- 9220 Jan, Normal in multigravida Z34.80 and 9 weeks gestation of Z3A.09 [place] [id number] [place] [address] 67236- 8418 Jan, [place] [id number] [place] [address] 49011- 2557 Jan, Encounter for test, result unknown Z32.00 [place] [id number] [place] [address] 16309- 1828 September, History of fainting spells of unknown cause Z91.89 [place] [id number] [place] [address] 28146- 9066 Aug, Yeast infection involving the vagina and surrounding area B37.3 ; Bipolar disorder, unspecified F31.9 and Trichomonas vaginalis infection A59.9 [facility] [address] [address] Jun, Bipolar disorder, unspecified F31.9 [facility] [id number] [place] [address] 87639- 0963 Jun, Encounter for surveillance of injectable contraceptive Z30.42 and Bipolar disorder, unspecified F31.9 [place] [id number] [place] [address] 16009- 0310 May, Encounter for Depo-Provera contraception Z30.42 [facility] [id number] [place] [address] 23922 -4798 Apr, Syncope, unspecified syncope type R55 [place] [id number] [place] [address] 80863- 5749 Mar, Bipolar disorder, unspecified F31.9 and High risk medication use Z79.899 [place] [id number] [place] [address] 46036- 1762 Feb, [place] [id number] [place] [address] 16190- 9107 Feb, Encounter for Depo-Provera contraception Z30.42 [place] [id number] [place] [address] 63110- 5190 Nov, Encounter for Depo-Provera contraception Z30.42 [place] [id number] [place] [address] 99080- 0418 September, [place] [id number] [place] [address] 12286- 5494 Aug, [place] [id number] [place] [address] 31166- 7156 Aug, Late period N92.6 ; STD exposure Z20.2 ; control counseling Z30.09 and Encounter for Depo-Provera contraception Z30.42 [facility] [address] 48[address] -0970 Jul, Body aches R52 ; Influenza A J10.1 ; Impacted cerumen of left ear H61.22 and Acute serous otitis media of left ear, recurrence not specified H65.02 [facility] [address] 70160- 4570 May, [place] [address] 71060- 7971 Apr, Encounter for female control Z30.019 ; Encounter for Depo-Provera contraception Z30.42 and Well woman exam Z01.419 [facility] [address] [id number] Feb, Dental examination Z01.20 [facility] [address] [id number] Feb, Dental caries K02.9 [facility] [address] [id number] Feb, Dental examination Z01.20 [facility] [address] 97138 -6521 Dec, Bilateral impacted cerumen H61.23 ; Dizziness R42 and Nausea R11.0 [place] [address] 38842- 0677 Dec, Encounter for Depo-Provera contraception Z30.42 [facility] [address] 09865- 1806 Oct, Bipolar affective disorder, currently depressed, moderate F31.32 [place] [address] 03040- 8938 September, Bipolar disorder, unspecified F31.9 [facility] [address] 84118- 3934 September, Bipolar disorder, unspecified F31.9 [place] [address] 40979- 1901 September, Bipolar disorder, unspecified F31.9 [place] [id number] [place] [address] 01503- 2878 September, Encounter for Depo-Provera contraception Z30.42 [place] [id number] [place] [address] 35161- 9238 Aug, Bipolar disorder, unspecified F31.9 [place] [address] 53400- 4685 Jun, Encounter for Depo-Provera contraception Z30.42 [place] [address] 47200- 5639 Apr, URI (upper respiratory infection) J06.9 [place] [address] 55478- 3268 Mar, Encounter for Depo-Provera contraception Z30.42 [place] [id number] [place] [address] 12361- 1370 Mar, [place] [address] 48104- 2769 Mar, Generalized anxiety disorder F41.1 and Major depressive disorder, recurrent episode, moderate F33.1 [place] [id number] [place] [address] 27245- 3981 Jan, Esophageal reflux 530.81 ; Depression 311 and Anxiety 300.00 [place] [id number] [place] [address] 85244- 5311 Dec, Depo-Provera contraceptive status V25.49 [place] [address] 32210- 0418 Dec, test negative V72.41 [place] [id number] [place] [address] 26712- 7773 Oct, [place] [address] 53651- 2049 Oct, [facility] [address] [facility] [id number] [place] [address]- 2703 September, [facility] [address] [facility] [id number] [address]- 5031 September, [facility] [address] [facility] [id number] [place] [address]- 2301 September, [facility] [address] [facility] [id number] [address]- 6421 September, [facility] [address] [facility] [id number] [place] [address]- 4449 September, [facility] [id number] [place] [address]- 5888 September, [facility] [address] [address]- 4788 September, [facility] [address] [id number] [place] [address]- 6915 September, Other general counseling and advice for contraceptive management V25.09 [facility] [address] [place] [address]- 9371 September, [facility] [id number] [address]- 9439 September, [facility] [id number] [address]- 3304 September, [facility] [address] [facility] [id number] [address]- 1548 September, [facility] [address] [facility] [id number] [place] [address]- 8223 Aug, [facility] [address] [facility] [id number] [place] [address]- 5960 Aug, [facility] [address] [id number] [place] [address]- 5255 14 Aug, 2014 [facility] [place] [facility] [address] [id number] [place] [address]- 3244 13 Aug, 2014 [facility] [place] [facility] [address] [id number] [place] [address]- 9934 27 Jul, 2014 [facility] [place] [facility] [address] [id number] [place] [address]- 3495 27 Jul, 2014 [facility] [place] [facility] [address] [id number] [place] [address]- 1883 20 Jul, 2014 [facility] [place] [facility] [address] [id number] [place] [address]- 4594 19 Jul, 2014 [facility] [place] [facility] [address] [id number] [place] [address]- 1266 19 Jul, 2014 [facility] [place] [facility] [address] [id number] [place] [address]- 7191 18 Jul, 2014 [facility] [place] [facility] [address] [id number] [place] [address]- 9319 18 Jul, 2014 [facility] [place] [facility] [address] [id number] [place] [address]- 5462 16 Jun, 2014 [facility] [place] [facility] [address] [id number] [place] [address]- 6228 16 Jun, 2014 [facility] [place] [facility] [address] [id number] [place] [address]- 4144 13 Jun, 2014 [facility] [place] [facility] [address] [id number] [place] [address]- 1192 13 Jun, 2014 [facility] [place] [facility] [address] [id number] [place] [address]- 6507 02 Jun, 2014 [facility] [place] [facility] [address] [id number] [place] 9726 02 Jun, 2014 [facility] [place] [facility] [address] [id number] [place] [address]- 0138 May, [facility] [place] [facility] [address] [id number] [place] [address]- 5255 13 May, 2014 [facility] [place] [facility] [address] [id number] [place] [address]- 7051 Apr, [facility] [place] [facility] [address] [id number] [place] [address]- 0427 Apr, [facility] [place] [facility] [address] [id number] [place] 9389 Apr, [facility] [place] [facility] [address] [id number] [place] [address]- 2408 Apr, [facility] [place] [facility] [address] [id number] [place] 5195 Apr, [facility] [place] [facility] [address] [id number] [place] [address]- 3356 Apr, [facility] [place] [facility] [address] [id number] [place] [address]- 4508 Mar, [facility] [place] [facility] [address] [id number] [place] [address]- 5901 Mar, [facility] [place] [facility] [address] [id number] [place] [address]- 8578 Mar, [facility] [place] [facility] [address] [id number] [place] [address]- 4966 Mar, [facility] [place] [facility] [address] [id number] [place] [address]- 0459 Mar, [facility] [place] [facility] [address] [id number] [place] [address]- 9788 Feb, [facility] [place] [facility] [address] [id number] [place] [address]- 9120 Feb, [facility] [place] [facility] [address] [id number] [place] [address]- 1930 Feb, [facility] [place] [facility] [address] [id number] [place] [address]- 9524 Feb, [facility] [place] [facility] [address] [id number] [place] [address]- 2201 Feb, 2013 [facility] [place] [facility] [address] [id number] [place] [address]- 4635 Feb, 2013 [facility] [place] [facility] [address] [id number] [place] [address]- 2069 Feb, 2013 [facility] [place] [facility] [address] [id number] [place] [address]- 0186 Feb, 2013 [facility] [place] [facility] [address] [id number] [place] [address]- 6316 05 Sep, 2013 [facility] [place] [facility] [address] [id number] [place] [address]- 8022 05 Jan, 2013 [facility] [place] [facility] [address] [id number] [place] [address]- 3088 Jan, 2013 [facility] [place] [facility] [address] [id number] [place] [address]- 7373 05 Jan, 2013 [facility] [place] [facility] [address] [id number] [place] [address]- 9328 Jan, 2013 [facility] [place] [facility] [address] [id number] [place] [address]- 8172 Jan, 2013 [facility] [place] [facility] [address] [id number] [place] [address]- 0508 Jan, 2013 [facility] [place] [facility] [address] [id number] [address]- 5153 Jan, 2013 [facility] [place] [facility] [address] [id number] [place] [address]- 1377 Dec, [facility] [place] [facility] [address] [id number] [place] [address]- 1281 Dec, [facility] [place] [facility] [address] [id number] [place] [address]- 7711 Dec, [facility] [place] [facility] [address] [id number] [place] [address]- 6211 Dec, [facility] [place] [facility] [address] [id number] [place] [address]- 4742 Dec, [facility] [place] [facility] [address] [id number] [place] [address]- 5940 Dec, [facility] [place] [facility] [address] [id number] [place] [address]- 3747 Dec, [facility] [place] [facility] [address] [id number] [place] [address]- 6389 Dec, [facility] [place] [facility] [address] [id number] [place] [address]- 2392 Dec, [facility] [place] [facility] [address] [id number] [place] [address]- 5403 Dec, [facility] [place] [facility] [address] [id number] [place] [address]- 6250 Dec, [facility] [place] [facility] [address] [id number] [place] [address]- 6613 Dec, [facility] [place] [facility] [address] [id number] [place] [address]- 4025 Dec, [facility] [place] [facility] [address] [id number] [place] [address]- 5690 Dec, [facility] [place] [facility] [address] [id number] [place] [address]- 7722 Dec, [facility] [place] [facility] [address] [id number] [place] [address]- 0788 Dec, [facility] [place] [facility] [address] [id number] [place] [address]- 5720 Dec, [facility] [place] [facility] [address] [id number] [place] [address]- 2542 Nov, [facility] [place] [facility] [address] [id number] [place] [address]- 1034 Nov, [facility] [place] [facility] [address] [id number] [place] [address]- 9514 Nov, 2013 [facility] [place] [facility] [address] [id number] [place] [address]- 1686 Nov, [facility] [place] [facility] [address] [id number] [place] [address]- 1896 Nov, 2013 [facility] [place] [facility] [address] [id number] [place] [address]- 5772 Nov, 2013 [facility] [place] [facility] [address] [id number] [place] [address]- 1969 Nov, [facility] [place] [facility] [address] [id number] [place] [address]- 8037 Nov, [facility] [place] [facility] [address] [id number] [place] [address]- 3895 Nov, [facility] [place] [facility] [address] [id number] [place] [address]- 1705 Oct, [facility] [place] [facility] [address] [id number] [place] [address]- 1157 Oct, [facility] [place] [facility] [address] [id number] [place] [address]- 4185 Oct, [facility] [place] [facility] [address] [id number] [place] [address]- 4152 Oct, [facility] [place] [facility] [address] [id number] [place] [address]- 2423 Oct, [facility] [place] [facility] [address] [id number] [place] [address]- 6310 Oct, [facility] [place] [facility] [address] [id number] [place] [address]- 2542 Oct, [facility] [place] [facility] [address] [id number] [place] [address]- 2541 Oct, [facility] [place] [facility] [address] [id number] [place] [address]- 7676 Oct, [facility] [place] [facility] [address] [id number] [place] [address]- 3987 Oct, [facility] [place] [facility] [address] [id number] [place] [address]- 5265 September, [facility] [place] [facility] [address] [id number] [place] [address]- 3020 September, [facility] [place] [facility] [address] [id number] [place] [address]- 7098 September, [facility] [place] [facility] [address] [id number] [place] [address]- 7328 September, [facility] [place] [facility] [address] [id number] [place] [address]- 6723 Aug, [facility] [place] [facility] [address] [id number] [place] [address]- 8150 Aug, [facility] [place] [facility] [address] [id number] [place] [address]- 2653 Aug, [facility] [place] [facility] [address] [id number] [place] [address]- 4019 Aug, [facility] [place] [facility] [address] [id number] [place] [address]- 8886 Aug, [facility] [place] [facility] [address] [id number] [place] [address]- 2697 15 Aug, 2013 [facility] [place] [facility] [address] [id number] [address]- 1210 15 Aug, 2013 [facility] [place] [facility] [address] [id number] [place] [address]- 8278 Aug, [facility] [place] [facility] [address] [id number] [place] [address]- 8589 Aug, [facility] [place] [facility] [address] [id number] [place] [address]- 0069 Aug, [facility] [place] [facility] [address] [id number] [place] [address]- 3776 10 Aug, 2013 [facility] [place] [facility] [address] [id number] [place] [address]- 1701 Jul, [facility] [place] [facility] [address] [id number] [place] [address]- 9824 24 Jul, 2013 [facility] [place] [facility] [address] [id number] [place] [address]- 5086 Jul, [facility] [place] [facility] [address] [id number] [place] [address]- 2849 Jul, [facility] [place] [facility] [address] [id number] [place] [address]- 7959 Jul, [facility] [place] [facility] [address] [facility] [id number] [place] [address]- 2835 Jul, [facility] [place] [facility] [address] [facility] [id number] [place] [address]- 4068 Jun, [facility] [place] [facility] [address] [facility] [id number] [place] [address]- 9800 Jun, [facility] [place] [facility] [address] [id number] [place] [address]- 9178 Jun, [facility] [place] [facility] [address] [id number] [place] [address]- 9133 Jun, [facility] [place] [facility] [address] [facility] [id number] [place] [address]- 7676 Jun, [facility] [place] [facility] [address] [facility] [id number] [place] [address]- 8425 Jun, [facility] [place] [facility] [address] [facility] [id number] [place] [address]- 8662 Jun, [facility] [place] [facility] [address] [facility] [id number] [place] [address]- 5067 24 Jun, 2013 [facility] [place] [facility] [address] [facility] [id number] [place] [address]- 3467 Jun, 2013 [facility] [place] [facility] [address] [id number] [place] [address]- 2606 Jun, 2013 [facility] [place] [facility] [address] [id number] [place] [address]- 7166 Jun, 2013 [facility] [place] [facility] [address] [facility] [id number] [place] [address]- 2176 Jun, 2013 [facility] [place] [facility] [address] [id number] [place] [address]- 2895 Jun, 2013 [facility] [place] [facility] [address] [id number] [place] [address]- 6936 Jun, 2013 [facility] [place] [facility] [address] [facility] [id number] [place] [address]- 7226 Jun, 2013 [facility] [place] [facility] [address] [facility] [id number] [place] [address]- 7632 Jun, 2013 [facility] [place] [facility] [address] [facility] [id number] [place] [address]- 4980 Jun, [facility] [place] [facility] [address] [facility] [id number] [place] [address]- 4513 Jun, 2013 [facility] [place] [facility] [address] [facility] [id number] [place] [address]- 1924 Jun, [facility] [place] [facility] [address] [facility] [id number] [place] [address]- 3706 Jun, [facility] [place] [facility] [address] [facility] [id number] [place] [address]- 8383 Jun, [facility] [place] [facility] [address] [facility] [id number] [place] [address]- 6616 Jun, [facility] [place] [facility] [address] [facility] [id number] [place] [address]- 7456 May, [facility] [place] [facility] [address] [facility] [id number] [place] [address] May, [facility] [address] [id number] [place] [address] May, [facility] [place] [facility] [address] [id number] [place] [address] May, [facility] [place] [facility] [address] [id number] [place] [address] May, [facility] [place] [facility] [address] [id number] [place] [address] May, [facility] [place] [facility] [address] [id number] [place] [address] May, [facility] [place] [facility] [address] [id number] [place] [address] May, [facility] [place] [facility] [address] [id number] [place] [address] May, [facility] [place] [facility] [address] [id number] [place] [address] May, [facility] [place] [facility] [address] [id number] [place] [address] May, [facility] [place] [facility] [address] [id number] [place] [address] May, [facility] [place] [facility] [address] [id number] [place] [address] May, [facility] [place] [facility] [address] [id number] [address] May, [facility] [place] [facility] [address] [id number] [place] [address] Apr, [facility] [place] [facility] [address] [id number] [place] [address] Apr, [facility] [place] [facility] [address] [id number], [place] [address] Apr, [facility] [place] [facility] [address] [id number][place] [address] Apr, [facility] [place] [facility] [address] [id number] [place] [address] Apr, [facility] [place] [facility] [address] [id number], [place] [address] Apr, [facility] [place] [facility] [address] [facility] [id number] [place] [address] Apr, [facility] [place] [facility] [address] [id number] [address] Apr, [facility] [place] [facility] [address] [id number] [place] [address] Mar, [facility] [place] [facility] [address] [id number] [place] [address] Mar, [facility] [place] [facility] [address] [facility] [id number], [place] [address] Mar, [facility] [place] [facility] [address] [facility] [id number], [place] [address] Mar, [facility] [place] [facility] [address] [facility] [id number], [place] [address] Feb, [facility] [place] [facility] [address] [facility] [id number][place] [address] Feb, [facility] [place] [facility] [address] [facility] [id number][place] [address] Feb, [facility] [place] [facility] [address] [facility] [id number], [place] [address] Feb, [facility] [place] [facility] [address] [facility] [id number][place] [address] Feb, [facility] [place] [facility] [address] [facility] [id number], [place] [address] Feb, [facility] [place] [facility] [address] [facility] [id number][place] [address] Feb, [facility] [place] [facility] [address] [id number] [place] [address] Feb, [facility] [place] [facility] [address] [id number] [place] [address] Jan, [facility] [place] [facility] [address] [id number] [place] [address] Oct, [facility] [place] [facility] [address] [id number] [place] [address] September, [facility] [place] [facility] [address] [id number] [place] [address] Jun, [facility] [place] [facility] [address] [id number] [place] [address] Jun, [facility] [place] [facility] [address] [id number] [place] [address] Jun, [facility] [place] [facility] [address] [id number] [place] [address] Jun, [facility] [place] [facility] [address] [id number] [place] [address] May, [facility] [place] [facility] [address] [id number] [place] [address] Apr, [facility] [place] [facility] [address] [id number] [place] [address] Apr, [facility] [place] [facility] [address] [id number] [place] [address] Apr, [facility] [place] [facility] [address] [id number] [place] [address] Apr, [facility] [place] [facility] [address] [id number] [place] [address] Mar, [facility] [place] [facility] [address] [id number] [place] [address] Mar, [facility] [place] [facility] [address] [id number] [place] [address]- [address] Jan, [facility] [place] [facility] [address] [id number] [place] [address]- [address]60 Dec, [facility] [place] [facility] [address] [id number] [place] [address]- [address] Dec, [facility] [place] [facility] [address] [id number] [place] [address]- [address] Dec, [facility] [place] [facility] [address] [id number] [place] [address]- [address] Dec, [facility] [place] [facility] [address] [id number] [place] [address]- 16[address] Nov, [facility] [place] [facility] [address] [id number] [place] [address]- [address] Nov, [facility] [place] [facility] [address] [id number] [place] [address] Nov, [facility] [facility] [address] [id number] [place] [address] Nov, [facility] [place] [facility] [address] [id number] [place] [address] Aug, [facility] [place] [facility] [address] [id number] [place] [address] Aug, [facility] [place] [facility] [address] [id number] [place] [address] Jul, [facility] [place] [facility] [address] [id number] [place] [address] Jul, [facility] [place] [facility] [address] [id number] [place] [address] Jul, [facility] [place] [facility] [address] [id number] [place] [address] Jul, [facility] [place] [facility] [address] [id number] [place] [address] Jun, [facility] [place] [facility] [address] [id number] [place] [address] 28 Jun, 2011 [facility] [place] [facility] [address] [id number] [place] [address] 14 Jun, 2011 [facility] [place] [facility] [address] [id number] [place] [address]46 13 Jun, 2011 [facility] [place] [facility] [address] [id number] [place] [address] 2546 09 Jun, 2011 [facility] [place] [facility] [address] [id number] [place] [address] 08 Jun, 2011 [facility] [place] [facility] [address] [id number] [place] [address] 04 Jun, 2011 [facility] [place] [facility] [address] [id number] [place] [address] 02 Jun, 2011 [facility] [place] [facility] [address] [id number] [place] [address] Jun, [facility] [facility] [address] [id number] [place] [address] May, [facility] [facility] [address] [facility] [id number] [place] [address] May, [facility] [address] [id number] [place] [address] May, [facility] [address] [id number] [place] [address] 25[address] May, [facility] [place] [facility] [address] [id number] [place] [address] May, [facility] [place] [facility] [address] [id number] [place] [address] 2546 Mar, [facility] [place] [facility] [address] [id number] [place] [address] Mar, [facility] [place] [facility] [address] [id number] [place] [address] Mar, [facility] [place] [facility] [address] [id number] [place] [address] Mar, [facility] [place] [facility] [address] [id number] [place] [address] 14[address] Mar, [facility] [place] [facility] [address] [id number] [place] [address] 31 Feb, 2011 [facility] [place] [facility] [address] [id number] [place] [address] Feb, [facility] [place] [facility] [address] [id number] [place] [address] Dec, [facility] [place] [facility] [address] [id number] [place] [address] 30 Apr, 2010 [facility] [facility] [address] [id number] [place] [address] Apr, [facility] [place] [facility] [address] [id number] [place] [address] Apr, [facility] [place] [facility] [address] [id number] [place] [address] Feb, [facility] [place] [facility] [address] [id number] [place] [address] Feb, [facility] [place] [facility] [address] [id number] [place] [address] Jul, [facility] [place] [facility] [address] [id number] [place] [address] 15 Jun, 2009 [facility] [place] [address] [id number] [place] [address] May, [facility] [place] [facility] [address] [id number] [place] [address] 29 Apr, 2009 [facility] [place] [facility] [address] [id number] [place] [address] Apr, [facility] [facility] [address] [id number] [address] Apr, [facility] [address] [id number] [address] Mar, [facility] [address] [place] [address] Jul, [facility] [address] [place] [address] 16 Jun, 2008 [facility] [address] [place] [address] Jan, [facility] [address] [place] [address] Oct, [facility] [address] [place] [address] September, [facility] [address] [place] [address] Nov, [facility] [address] [place] [address] September, [facility] [address] [place] [address] 17 Dec, 2003 [facility] [address] [id number] [address] 10 Mar, 2003 IMMUNIZATIONS No Known Immunizations SOCIAL HISTORY Never Assessed REASON FOR VISIT test (walk-in) PLAN OF CARE VITAL SIGNS MEDICATIONS Unknown Medications RESULTS Name Result Date Reference Range TEST, URINE (IN HOUSE) 2018-01-24 RESULTS Positive Lot # [id number] Control + Exp date 05/2019 PROCEDURES Procedure Date Ordered Result Body Site URINE TEST Jan 24, 2018 INSTRUCTIONS MEDICATIONS ADMINISTERED No Known Medications [...]
--- OUTSIDE RECORDS SUMMARY | 2018-07-08 18:36 | XMS REPORT ---
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
--- OUTSIDE RECORDS SUMMARY | 2018-07-08 18:36 | XMS REPORT ---
Author Author EMMA BERG [facility] IN [facility] Address [address] [place] [address] Care Team Providers Care Director Of Distance Learning Name Role Phone EMMA BERG Unavailable PROBLEMS Type Condition ICD9-CM Code QOX21-VK Code Onset Dates Condition Status SNOMED Code Problem Bipolar disorder, unspecified F31.9 Active [id number] ALLERGIES Substance Reaction Event Type Date Status Zoloft Unknown Drug Allergy Aug, Active Prednisone irritable Drug Allergy Aug, Active Vancomycin documented reaction to IV antibiotics during hospitalization. Drug Allergy Aug, Active ENCOUNTERS Encounter Location Date Diagnosis [place] [address] [address] September, History of fainting spells of unknown cause Z91.89 [place] [address] [place] [id number] [place] [address] 87134- [address]276 Aug, Yeast infection involving the vagina and surrounding area B37.3 ; Bipolar disorder, unspecified F31.9 and Trichomonas vaginalis infection A59.9 [place] [address] [place] [id number] [place] [address] 59020- 6665 Jun, Bipolar disorder, unspecified F31.9 [place] [address] [place] [id number] [place] [address] 98784- 5126 Jun, Encounter for surveillance of injectable contraceptive Z30.42 and Bipolar disorder, unspecified F31.9 [place] [address] [address]- [address]65 May, Encounter for Depo-Provera contraception Z30.42 [facility] [id number] [place] [address] 6[address]10 -1540 Apr, Syncope, unspecified syncope type R55 [facility] [address] [id number] [place] [address] 20226- 0179 Mar, Bipolar disorder, unspecified F31.9 and High risk medication use Z79.899 [place] [address] [place] [id number] [place] [address] 76808- 6620 Feb, [facility] [address] [address]- [address] Feb, Encounter for Depo-Provera contraception Z30.42 [facility] [address] [address]36- 8897 Nov, Encounter for Depo-Provera contraception Z30.42 [place] [address] 41773- 8300 September, [place] [address] 74441- 0506 Aug, [place] [address] 30622- 0627 Aug, Late period N92.6 ; STD exposure Z20.2 ; control counseling Z30.09 and Encounter for Depo-Provera contraception Z30.42 [facility] [address] [id number] [place] [address] 15948 -8691 Jul, Body aches R52 ; Influenza A J10.1 ; Impacted cerumen of left ear H61.22 and Acute serous otitis media of left ear, recurrence not specified H65.02 [facility] [address] [place] [id number] [place] [address] 14679- 6053 May, [place] [address] 7[address]- 9054 Apr, Encounter for female control Z30.019 ; Encounter for Depo-Provera contraception Z30.42 and Well woman exam Z01.419 [facility] [address] [id number] Feb, Dental examination Z01.20 [facility] [id number] [place] [address] [id number] 14 Feb, 2016 Dental caries K02.9 [facility] [address] [place] [id number] [place] [address] [id number] 05 Feb, 2016 Dental examination Z01.20 [facility] [address] [id number] [place] [address] 77410 -5472 Dec, Bilateral impacted cerumen H61.23 ; Dizziness R42 and Nausea R11.0 [facility] [address] 33635- [address] Dec, Encounter for Depo-Provera contraception Z30.42 [place] [address] 94072- 1263 Oct, Bipolar affective disorder, currently depressed, moderate F31.32 [place] [address] 69722- 5254 September, Bipolar disorder, unspecified F31.9 [facility] [address] [place] [id number] [place] [address] 67756- 8962 September, Bipolar disorder, unspecified F31.9 [place] [address] [place] [id number] [place] [address] 12661- 1677 September, Bipolar disorder, unspecified F31.9 [place] [address] [place] [id number] [place] [address] 40278- 1027 September, Encounter for Depo-Provera contraception Z30.42 [facility] [address] [place] [id number] [place] [address] 46514- 1436 Aug, Bipolar disorder, unspecified F31.9 [place] [address] 41698- 5937 Jun, Encounter for Depo-Provera contraception Z30.42 [place] [address] 47184- 3810 Apr, URI (upper respiratory infection) J06.9 [facility] [address] [place] [id number] [address] Mar, Encounter for Depo-Provera contraception Z30.42 [facility] [address] [place] [id number] [place] [address] 65516- 6091 Mar, [facility] [address] [id number] [place] [address] 26757- 1501 Mar, Generalized anxiety disorder F41.1 and Major depressive disorder, recurrent episode, moderate F33.1 [facility] [address] [id number] [place] [address] 37323- 1418 Jan, Esophageal reflux 530.81 ; Depression 311 and Anxiety 300.00 [facility] [address] [place] [id number] [place] [address] 52391- 9980 Dec, Depo-Provera contraceptive status V25.49 [facility] [address] [id number] [place] [address] 99720- 8877 Dec, test negative V72.41 [facility] [address] [place] [id number] [place] [address] 17649- 7902 Oct, [facility] [address] [place] [address] [id number] [place] [address] 77055- 4667 Oct, [facility] [id number] [place] [address] 32901- 5183 September, [facility] [address] [place] [id number] [place] [address] 15465- 7785 September, [facility] [address] [place] [id number] [place] [address] 52136- 7474 September, [facility] [address] [address] [id number] [place] [address] 83585- 6290 September, [facility] [address] [place] [id number] [place] [address] 57451- 6663 September, [facility] [id number] [place] [address]- 7113 September, [facility] [address] [id number], [place] [address]- 3533 September, [facility] [address] [id number], [place] [address]- 2583 September, Other general counseling and advice for contraceptive management V25.09 [facility] [address] [id number] [place] [address]- 3388 September, [facility] [address] [id number] [place] [address]- 0743 September, [facility] [address] [id number], [place] [address]- 4616 September, [facility] [address] [facility] [id number], [place] [address]- 9134 September, [facility] [address] [facility] [id number], [place] [address]- 2085 29 Aug, 2014 [facility] [address] [id number] [place] [address]- 7938 28 Aug, 2014 [facility] [address] [facility] [id number], [place] [address]- 4563 14 Aug, 2014 [facility] [address] [id number], [place] [address]- 2138 Aug, [facility] [address] [id number], [place] [address]- 0952 Jul, [facility] [address] [id number], [place] [address]- 6938 Jul, [facility] [address] [id number], [place] [address]- 5508 20 Jul, 2014 [facility] [address] [id number], [place] [address]- 8719 Jul, [facility] [address] [id number], [place] [address]- 8611 Jul, [facility] [place] [facility] [address] [id number] [place] [address]- 1568 Jul, [facility] [place] [facility] [address] [id number] [place] [address]64 Jul, 2014 [facility] [place] [facility] [address] [id number] [place] [address]- 5086 Jun, 2014 [facility] [place] [facility] [address] [id number] [place] [address]- 1140 Jun, 2014 [facility] [place] [facility] [address] [id number] [place] [address]- 3163 Jun, 2014 [facility] [place] [facility] [address] [facility] [id number] [place] [address]- 7879 Jun, 2014 [facility] [place] [facility] [address] [facility] [id number] [place] [address]- 3155 Jun, [facility] [place] [facility] [address] [facility] [id number] [place] [address]- 7546 Jun, [facility] [place] [facility] [address] [facility] [id number] [place] [address]- 8887 May, [facility] [place] [facility] [address] [facility] [id number] [place] [address]- 2933 May, [facility] [place] [facility] [address] [id number] [place] [address]- 5762 Apr, [facility] [place] [facility] [address] [id number] [place] [address]- 1865 Apr, [facility] [place] [facility] [address] [id number] [place] [address]- 9270 Apr, [facility] [place] [facility] [address] [facility] [id number] [place] [address]- 5949 Apr, [facility] [place] [facility] [address] [facility] [id number] [place] [address]- 4184 Apr, [facility] [place] [facility] [address] [id number] [place] 3951 Apr, [facility] [place] [facility] [address] [id number] [place] [address]- 7417 Mar, [facility] [place] [facility] [address] [id number] [place] 1950 Mar, [facility] [place] [facility] [address] [id number] [place] [address]- 7156 Mar, [facility] [place] [facility] [address] [id number] [place] [address]- 1038 Mar, [facility] [place] [facility] [address] [id number] [place] [address]- 9426 Mar, [facility] [place] [facility] [address] [id number] [place] [address]- 9152 Feb, [facility] [place] [facility] [address] [id number] [place] [address]- 2208 Feb, [facility] [place] [facility] [address] [id number] [place] [address]- 4816 Feb, [facility] [place] [facility] [address] [id number] [place] [address]- 7257 Feb, [facility] [place] [facility] [address] [id number] [place] [address]- 8055 Feb, [facility] [place] [facility] [address] [id number], [place] [address]- 8912 Feb, [facility] [place] [facility] [address] [id number] [place] [address]- 9225 Feb, [facility] [place] [facility] [address] [id number] [place] 9200 Feb, [facility] [place] [facility] [address] [id number], [place] [address]- 3446 05 Jan, 2014 [facility] [place] [facility] [address] [id number], [place] [address]- 9207 Jan, 2013 [facility] [place] [facility] [address] [id number] [place] [address]- 2193 Jan, 2013 [facility] [place] [facility] [address] [id number] [place] [address]- 9436 Jan, 2013 [facility] [place] [facility] [address] [id number] [place] [address]- 0822 Jan, 2013 [facility] [place] [facility] [address] [id number] [place] [address]- 4299 Jan, 2013 [facility] [place] [facility] [address] [id number] [place] [address]- 4848 Jan, 2013 [facility] [place] [facility] [address] [id number] [place] [address]- 4291 Jan, 2013 [facility] [place] [facility] [address] [id number] [place] [address]- 0652 Dec, [facility] [place] [facility] [address] [id number] [place] [address]- 6996 Dec, [facility] [place] [facility] [address] [id number] [place] [address]- 8472 Dec, [facility] [place] [facility] [address] [id number] [place] [address]- 8031 Dec, [facility] [place] [facility] [address] [id number] [place] [address]- 4605 Dec, [facility] [place] [facility] [address] [id number] [place] [address]- 5759 Dec, [facility] [place] [facility] [address] [id number] [place] [address]- 5558 Dec, [facility] [place] [facility] [address] [id number] [place] [address]- 4241 Dec, [facility] [place] [facility] [address] [id number] [place] [address]- 2724 Dec, [facility] [place] [facility] [address] [id number] [place] [address]- 7692 Dec, [facility] [place] [facility] [address] [id number] [place] [address]- 5483 Dec, [facility] [place] [facility] [address] [id number] [place] [address]- 5964 Dec, [facility] [place] [facility] [address] [id number] [place] [address]- 3712 Dec, [facility] [place] [facility] [address] [id number] [place] [address]- 1537 Dec, [facility] [place] [facility] [address] [id number] [place] [address]- 1579 Dec, [facility] [place] [facility] [address] [id number] [place] [address]- 7438 Dec, [facility] [place] [facility] [address] [id number] [place] [address]- 3112 Dec, [facility] [place] [facility] [address] [id number] [place] [address]- 3376 Nov, [facility] [place] [facility] [address] [id number] [place] [address]- 5791 Nov, [facility] [place] [facility] [address] [id number] [place] [address]- 6105 Nov, [facility] [place] [facility] [address] [id number] [place] [address]- 6389 Nov, [facility] [place] [facility] [address] [id number] [place] [address]- 8313 Nov, [facility] [place] [facility] [address] [id number] [place] [address]- 3567 Nov, [facility] [place] [facility] [address] [id number] [place] 1936 Nov, [facility] [place] [facility] [address] [id number] [place] [address]- 6067 Nov, [facility] [place] [facility] [address] [id number] [place] [address]- 9757 Nov, [facility] [place] [facility] [address] [id number] [place] [address]- 3562 Oct, [facility] [place] [facility] [address] [id number] [place] [address]- 7518 Oct, [facility] [place] [facility] [address] [id number] [place] [address]- 8960 Oct, [facility] [place] [facility] [address] [id number] [place] [address]- 4833 Oct, [facility] [place] [facility] [address] [id number] [place] [address]- 8389 Oct, [facility] [place] [facility] [address] [id number] [place] [address]- 3246 Oct, [facility] [place] [facility] [address] [id number] [place] [address]- 0821 Oct, [facility] [place] [facility] [address] [id number] [place] [address]- 7551 Oct, [facility] [place] [facility] [address] [id number] [place] [address]- 1579 Oct, [facility] [place] [facility] [address] [id number] [place] [address]- 3122 Oct, [facility] [place] [facility] [address] [id number] [place] [address]- 5864 September, [facility] [place] [facility] [address] [id number] [place] [address]- 2128 September, [facility] [place] [facility] [address] [id number] [place] [address]- 3829 September, [facility] [place] [facility] [address] [id number] [place] [address]- 5676 September, [facility] [place] [facility] [address] [id number] [place] [address]- 0749 29 Aug, 2013 [facility] [place] [facility] [address] [id number] [place] [address]- 8623 Aug, [facility] [place] [facility] [address] [id number] [place] [address]- 3042 Aug, [facility] [place] [facility] [address] [id number] [place] [address]- 3799 Aug, [facility] [place] [facility] [address] [id number] [place] [address]- 4105 Aug, [facility] [place] [facility] [address] [id number] [place] [address]- 4587 Aug, [facility] [place] [facility] [address] [id number] [place] [address]- 1759 Aug, [facility] [place] [facility] [address] [id number] [place] [address]- 1404 Aug, [facility] [place] [facility] [address] [id number] [place] [address]- 1258 Aug, [facility] [place] [facility] [address] [id number] [place] [address]- 0289 Aug, [facility] [place] [facility] [address] [id number] [place] [address]- 0910 Aug, [facility] [place] [facility] [address] [id number] [place] [address]- 9925 24 Jul, 2013 [facility] [place] [facility] [address] [id number] [place] [address]- 7708 24 Jul, 2013 [facility] [place] [facility] [address] [id number] [place] [address]- 0499 10 Jul, 2013 [facility] [place] [facility] [address] [id number] [place] [address]- 5280 10 Jul, 2013 [facility] [place] [facility] [address] [id number] [place] [address]- 0719 06 Jul, 2013 [facility] [place] [facility] [address] [id number] [place] [address]- 4430 Jul, [facility] [place] [facility] [address] [id number] [place] [address]- 8836 Jun, [facility] [place] [facility] [address] [id number] [place] [address]- 2226 Jun, [facility] [place] [facility] [address] [id number] [place] [address]- 6560 Jun, [facility] [place] [facility] [address] [id number] [place] [address]- 8327 Jun, [facility] [place] [facility] [address] [id number] [place] [address]- 2058 Jun, [facility] [place] [facility] [address] [facility] [id number] [place] [address]- 2438 Jun, [facility] [place] [facility] [address] [id number] [place] [address]- 7231 Jun, [facility] [place] [facility] [address] [id number] [place] [address]- 8136 Jun, [facility] [place] [facility] [address] [facility] [id number] [place] [address]- 0734 Jun, [facility] [place] [facility] [address] [facility] [id number] [place] [address]- 3000 Jun, [facility] [place] [facility] [address] [id number] [place] [address]- 2545 Jun, [facility] [place] [facility] [address] [id number] [place] [address]- 5627 Jun, [facility] [place] [facility] [address] [id number] [place] [address]- 1908 Jun, [facility] [place] [facility] [address] [facility] [id number] [place] [address]- 8234 Jun, [facility] [place] [facility] [address] [id number] [place] [address]- 7825 Jun, [facility] [place] [facility] [address] [id number] [place] [address]- 6046 Jun, [facility] [place] [facility] [address] [id number] [place] [address]- 7426 Jun, [facility] [place] [facility] [address] [id number] [place] [address]- 3526 Jun, [facility] [place] [facility] [address] [id number] [place] [address]- 1592 Jun, [facility] [place] [facility] [address] [id number] [place] [address]- 8322 Jun, [facility] [place] [facility] [address] [id number] [place] [address]- 0775 Jun, [facility] [place] [facility] [address] [id number] [place] [address]- 1404 Jun, [facility] [place] [facility] [address] [id number] [place] [address]- 4300 May, [facility] [place] [facility] [address] [facility] [id number] [place] [address]- 8024 May, [facility] [place] [facility] [address] [id number] [place] [address]- 0746 May, [facility] [place] [facility] [address] [id number] [place] [address]- 7602 May, [facility] [place] [facility] [address] [id number] [place] [address]- 8943 May, [facility] [place] [facility] [address] [id number] [place] [address]- 6733 May, [facility] [place] [facility] [address] [id number] [place] [address]- 2358 May, [facility] [place] [facility] [address] [id number] [place] [address]- 2546 16 May, 2013 [facility] [place] [facility] [address] [id number] [place] [address]- 5386 15 May, 2013 [facility] [place] [facility] [address] [id number] [place] [address]- 6893 15 May, 2013 [facility] [place] [facility] [address] [id number] [place] [address] 14 May, 2013 [facility] [place] [facility] [address] [id number] [place] [address] May, [facility] [place] [facility] [address] [id number] [place] [address] May, [facility] [place] [facility] [address] [id number] [place] [address] May, [facility] [place] [facility] [address] [id number] [place] [address] 18 Apr, 2013 [facility] [place] [facility] [address] [id number] [place] [address] 18 Apr, 2013 [facility] [place] [facility] [address] [id number] [place] [address] Apr, [facility] [place] [facility] [address] [id number] [place] [address]263 Apr, [facility] [place] [facility] [address] [id number] [place] [address]81 05 Apr, 2013 [facility] [place] [facility] [address] [id number] [place] [address] 47[address] 05 Apr, 2013 [facility] [place] [facility] [address] [id number] [place] [address] Apr, [facility] [place] [facility] [address] [id number] [place] [address] Apr, [facility] [place] [facility] [address] [id number] [place] [address] Mar, [facility] [place] [facility] [address] [id number] [place] [address]- [address] Mar, [facility] [address] [id number] [place] [address] 2546 Mar, [facility] [place] [facility] [address] [id number] [place] [address]- [address]46 Mar, [facility] [address] [id number] [place] [address]- [address] Feb, [facility] [place] [facility] [address] [id number] [place] [address]- [address] Feb, [facility] [place] [facility] [address] [id number] [place] [address]- [address] Feb, [facility] [place] [facility] [address] [id number] [place] [address] Feb, [facility] [place] [facility] [address] [id number] [place] [address] Feb, [facility] [place] [facility] [address] [id number] [place] [address] Feb, [facility] [place] [facility] [address] [id number] [place] [address] Feb, [facility] [place] [facility] [address] [facility] [id number] [place] [address] 2546 Feb, [facility] [place] [facility] [address] [id number] [place] [address] Jan, [facility] [place] [facility] [address] [id number] [place] [address]- [address] Oct, [facility] [place] [facility] [address] [id number] [place] [address]- [address] September, [facility] [place] [facility] [address] [id number] [place] [address]- [address] Jun, [facility] [place] [facility] [address] [id number] [place] [address] Jun, [facility] [place] [facility] [address] [id number] [place] [address] 12[address] Jun, [facility] [place] [facility] [address] [id number] [place] [address] 8[address] Jun, [facility] [place] [facility] [address] [id number] [place] [address] May, [facility] [place] [facility] [address] [id number] [place] [address] Apr, [facility] [place] [facility] [address] [id number] [place] [address] 269[address] Apr, [facility] [place] [facility] [address] [id number] [place] [address]- [address] Apr, [facility] [place] [facility] [address] [id number] [place] [address] Apr, [facility] [place] [facility] [address] [id number] [place] [address]- [address] Mar, [facility] [place] [facility] [address] [id number] [place] [address] Mar, [facility] [place] [facility] [address] [id number] [place] [address]- 04[address] Jan, [facility] [place] [facility] [address] [id number] [place] [address] 9431 Dec, [facility] [place] [facility] [address] [id number] [place] [address]673 Dec, [facility] [place] [facility] [address] [id number] [place] [address] Dec, [facility] [place] [facility] [address] [id number] [place] [address]- 3698 Dec, [facility] [place] [facility] [address] [id number] [place] [address]- [address]34 Nov, [facility] [place] [facility] [address] [id number] [place] [address]- [address]679 Nov, [facility] [address] [id number] [place] [address]- 8066 Nov, [facility] [place] [facility] [address] [id number] [place] [address] 2546 Nov, [facility] [address] [id number] [place] [address]- [address] Aug, [facility] [place] [facility] [address] [id number] [place] [address]46 Aug, [facility] [address] [id number] [place] [address]- 2468 Jul, [facility] [place] [facility] [address] [id number] [place] [address]- [address] Jul, [facility] [place] [facility] [address] [facility] [id number] [place] [address] Jul, [facility] [place] [facility] [address] [id number] [place] [address] Jul, [facility] [place] [facility] [address] [id number] [place] [address] Jun, [facility] [place] [facility] [address] [facility] [id number] [place] [address] Jun, [facility] [place] [facility] [address] [facility] [id number] [place] [address] 14 Jun, 2011 [facility] [place] [facility] [address] [facility] [id number] [place] [address] 13 Jun, 2011 [facility] [place] [facility] [address] [id number] [place] [address] 09 Jun, 2011 [facility] [place] [facility] [address] [facility] [id number] [place] [address]46 08 Jun, 2011 [facility] [place] [facility] [address] [facility] [id number] [place] [address] Jun, [facility] [place] [facility] [address] [id number] [place] [address] Jun, [facility] [place] [facility] [address] [id number] [place] [address] Jun, [facility] [place] [facility] [address] [id number] [place] [address] May, [facility] [place] [facility] [address] [id number] [place] [address] May, [facility] [place] [facility] [address] [id number] [place] [address] May, [facility] [place] [facility] [address] [id number] [place] [address] May, [facility] [place] [facility] [address] [id number] [place] [address] May, [facility] [place] [facility] [address] [id number], [place] [address] Mar, [facility] [place] [facility] [address] [id number] [place] [address] Mar, [facility] [place] [facility] [address] [id number] [place] [address] Mar, [facility] [place] [facility] [address] [id number], [place] [address] Mar, [facility] [place] [facility] [address] [id number], [place] [address] Mar, [facility] [place] [facility] [address] [id number] [place] [address] Feb, [facility] [place] [facility] [address] [id number], [place] [address] Feb, [facility] [place] [facility] [address] [id number] [place] [address] Dec, [facility] [place] [facility] [address] [id number] [place] [address] 30 Apr, 2010 [facility] [address] [id number] [place] [address]46 07 Apr, 2010 [facility] [place] [facility] [address] [id number] [place] [address] 2546 03 Apr, 2010 [facility] [address] [id number] [place] [address] 2546 29 Feb, 2010 [facility] [place] [facility] [address] [id number] [place] [address] 2546 11 Feb, 2010 [facility] [address] [id number] [place] [address] 11 Jul, 2009 [facility] [place] [facility] [address] [id number] [place] [address] 15 Jun, 2009 [facility] [address] [facility] [id number] [place] [address] 15 May, 2009 [facility] [address] [facility] [id number] [place] [address] 29 Apr, 2009 [facility] [address] [facility] [id number] [place] [address] Apr, [facility] [address] [facility] [id number] [place] [address] Apr, [facility] [place] [facility] [address] [id number] [place] [address] 2546 25 Mar, 2009 [facility] [place] [facility] [address] [facility] [id number] [place] [address] 2549 11 Jul, 2008 [facility] [place] [facility] [address] [id number] [place] [address] 2546 16 Jun, 2008 [facility] [place] [facility] [address] [facility] [id number] [place] [address] 2546 15 Jan, 2008 [facility] [place] [facility] [address] [facility] [id number] [place] [address] 10 Oct, 2007 [facility] [address] [facility] [id number], [place] [address] September, [facility] [address] [facility] [id number], [place] [address] Nov, [facility] [address] [facility] [id number], [place] [address] 16 Sep, 2005 [facility] [address] [facility] [id number], [place] [address] Dec, [facility] [address] [facility] [id number], [place] [address] Mar, IMMUNIZATIONS No Known Immunizations SOCIAL HISTORY Never Assessed REASON FOR VISIT Yeast infection, possible , having discharge with itching and rash on genital area x 1 week and half -- shavon espinoza, states she tried a cream over the counter and didn't work PLAN OF CARE Activity Details Follow Up 6 Months, prn Reason:routine f/u Pending Test GC/CHLAM PROBE (STATE) VITAL SIGNS Height 59 in 2017-08-30 Weight 123.1 lbs 2017-08-30 Temperature 97.2 degrees Fahrenheit 2017-08-30 Heart Rate 76 bpm 2017-08-30 Respiratory Rate 18 2017-08-30 BMI 24.86 kg/m2 2017-08-30 Blood pressure systolic 106 mmHg 2017-08-30 Blood pressure diastolic 68 mmHg 2017-08-30 MEDICATIONS Medication Instructions Dosage Frequency Start Date End Date Duration Status Depo-Provera 150 MG/ML 1 ml Active Metronidazole 500 mg Orally at once Take all 4 tablets at once. Aug, 1 dose Active Latuda 40 mg Orally Once a day 1 tablet with food 24h Jun, 30 day(s) Active Fluconazole 150 MG Orally once 1 tablet Aug, Aug, 1 dose Active RESULTS No Results PROCEDURES Procedure Date Ordered Result Body Site LAB NOT BILLED BY [facility] August 30, 2017 No Charge August 30, 2017 Bacterial Vaginosis In House August 30, 2017 INSTRUCTIONS MEDICATIONS ADMINISTERED No Known Medications [...]
--- OUTSIDE RECORDS SUMMARY | 2018-07-08 18:36 | XMS REPORT ---
Author Author ROBERTO FIGUEROA Organization [facility] Address [address] [place] [address] Care Team Providers Care Bridge Operator Slip Name Role Phone HENRYYADIRAROBERTO Unavailable PROBLEMS Type Condition ICD9-CM Code [id number] Code Onset Dates Condition Status SNOMED Code Problem Bipolar disorder, unspecified F31.9 Active [id number] ALLERGIES No Information ENCOUNTERS Encounter Location Date Diagnosis [place] [id number] [place] [address] 25794- 5902 September, History of fainting spells of unknown cause Z91.89 [place] [address] [address]- 4095 Aug, Yeast infection involving the vagina and surrounding area B37.3 ; Bipolar disorder, unspecified F31.9 and Trichomonas vaginalis infection A59.9 [place] [address] 74994- 6749 Jun, Bipolar disorder, unspecified F31.9 [place] [address] [id number] [place] [address] 97740- 4247 Jun, Encounter for surveillance of injectable contraceptive Z30.42 and Bipolar disorder, unspecified F31.9 [place] [address] [id number] [place] [address] 61589- 2035 May, Encounter for Depo-Provera contraception Z30.42 [facility] [id number] [place] [address] 11176 -8478 Apr, Syncope, unspecified syncope type R55 [place] [id number] [place] [address] 77687- 4702 Mar, Bipolar disorder, unspecified F31.9 and High risk medication use Z79.899 [facility] [id number] [place] [address] 11219- 8748 Feb, [facility] [id number] [place] [address] 52328- 1830 Feb, Encounter for Depo-Provera contraception Z30.42 [facility] [address] 61091- 0511 Nov, Encounter for Depo-Provera contraception Z30.42 [place] [id number] [place] [address] 30265- 8034 September, [facility] [address] 14814- 2683 Aug, [facility] [address] 15140- 5550 Aug, Late period N92.6 ; STD exposure Z20.2 ; control counseling Z30.09 and Encounter for Depo-Provera contraception Z30.42 [facility] [id number] [place] [address] 17852 -3869 Jul, Body aches R52 ; Influenza A J10.1 ; Impacted cerumen of left ear H61.22 and Acute serous otitis media of left ear, recurrence not specified H65.02 [facility] [id number] [place] [address] 34706- 0061 May, [facility] [id number] [place] [address] 62141- 0262 Apr, Encounter for female control Z30.019 ; Encounter for Depo-Provera contraception Z30.42 and Well woman exam Z01.419 [facility] [id number] [place] [address] [id number] Feb, Dental examination Z01.20 [facility] [id number] [place] [address] [id number] Feb, Dental caries K02.9 [facility] [address] [id number] [id number] Feb, Dental examination Z01.20 [facility] [id number] [place] [address] 91574 -1654 Dec, Bilateral impacted cerumen H61.23 ; Dizziness R42 and N[address] R11.0 [facility] [address] 45942- 8320 Dec, Encounter for Depo-Provera contraception Z30.42 [place] [id number] [place] [address] 23214- 3529 Oct, Bipolar affective disorder, currently depressed, moderate F31.32 [place] [id number] [place] [address] 35430- 4041 September, Bipolar disorder, unspecified F31.9 [place] [id number] [place] [address] 58573- 4579 September, Bipolar disorder, unspecified F31.9 [place] [id number] [place] [address] 35097- 9056 September, Bipolar disorder, unspecified F31.9 [place] [id number] [place] [address] 04373- 1517 September, Encounter for Depo-Provera contraception Z30.42 [facility] [id number] [place] [address] 61425- 4747 Aug, Bipolar disorder, unspecified F31.9 [place] [id number] [place] [address] 38773- 7742 Jun, Encounter for Depo-Provera contraception Z30.42 [place] [id number] [place] [address] 43868- 6401 Apr, URI (upper respiratory infection) J06.9 [facility] [id number] [place] [address] 16198- 1380 Mar, Encounter for Depo-Provera contraception Z30.42 [facility] [id number] [place] [address] 63532- 8186 Mar, [facility] [id number] [place] [address] 63071- 4416 Mar, Generalized anxiety disorder F41.1 and Major depressive disorder, recurrent episode, moderate F33.1 [facility] [id number] [place] [address] 16439- 5912 Jan, Esophageal reflux 530.81 ; Depression [address] [facility] [id number] [place] [address] 59192- 4166 Dec, Depo-Provera contraceptive status V25.49 [facility] [id number] [place] [address] 22833- 4564 Dec, test negative V72.41 [facility] [id number] [place] [address] 18471- 9180 Oct, [facility] [id number] [place] [address] 54695- 3078 Oct, [facility] [id number] [place] [address] 26961- 5296 September, [facility] [id number] [place] [address] 90709- 9780 September, [facility] [id number] [place] [address] 07588- 1568 September, [facility] [id number] [place] [address] 99190- 2301 September, [facility] [id number] [place] [address] 77351- 3600 September, [facility] [id number] [place] [address] 10464- 5250 September, [facility] [id number] [place] [address] 14766- 9459 September, [facility] [address] [facility] [id number] [place] 9017 September, Other general counseling and advice for contraceptive management V25.09 [facility] [address] [id number] [place] [address]- 7416 September, [facility] [address] [id number] [place] [address]- 8413 September, [facility] [address] [id number] [place] [address]- 6010 September, [facility] [address] [id number] [place] [address]- 7220 September, [facility] [address] [facility] [id number] [place] [address]- 9583 29 Aug, 2014 [facility] [address] [facility] [id number] [place] [address]- 3242 28 Aug, 2014 [facility] [address] [id number] [place] [address]- 0534 14 Aug, 2014 [facility] [address] [id number] [place] [address]- 2641 13 Aug, 2014 [facility] [address] [facility] [id number] [place] [address]- 7844 27 Jul, 2014 [facility] [address] [id number] [place] [address]- 5476 27 Jul, 2014 [facility] [address] [id number] [place] [address]- 2705 20 Jul, 2014 [facility] [address] [id number] [place] [address]- 9964 19 Jul, 2014 [facility] [address] [id number] [place] [address]- 0156 19 Jul, 2014 [facility] [address] [facility] [id number] [place] [address]- 9259 Jul, 2014 [facility] [place] [facility] [address] [id number] [place] [address]- 3341 Jul, 2014 [facility] [place] [facility] [address] [id number] [place] [address]- 2541 Jun, 2014 [facility] [place] [facility] [address] [id number] [place] 9956 Jun, 2014 [facility] [place] [facility] [address] [id number] [place] [address]- 6075 Jun, 2014 [facility] [place] [facility] [address] [id number] [place] [address]- 1874 Jun, 2014 [facility] [place] [facility] [address] [id number] [place] [address]- 0734 Jun, 2014 [facility] [place] [facility] [address] [id number] [place] [address]- 3856 Jun, [facility] [place] [facility] [address] [id number] [place] [address]- 5937 May, [facility] [place] [facility] [address] [id number] [place] [address]- 0701 May, [facility] [place] [facility] [address] [facility] [id number] [place] [address]- 9698 Apr, [facility] [place] [facility] [address] [id number] [place] [address]- 8910 Apr, [facility] [place] [facility] [address] [id number] [place] [address]- 1505 Apr, [facility] [place] [facility] [address] [id number] [place] 1765 Apr, [facility] [place] [facility] [address] [id number] [place] [address]- 1686 Apr, [facility] [place] [facility] [address] [id number] [place] [address]- 5414 Apr, [facility] [place] [facility] [address] [id number] [place] [address]- 3085 Mar, [facility] [place] [facility] [address] [id number] [place] [address]- 8278 19 Mar, 2014 [facility] [place] [facility] [address] [id number] [place] [address]- 9995 Mar, [facility] [place] [facility] [address] [id number] [place] [address]- 2351 Mar, [facility] [place] [facility] [address] [id number] [place] [address]- 9442 Mar, [facility] [place] [facility] [address] [id number] [place] [address]- 9154 Feb, [facility] [place] [facility] [address] [id number] [place] [address]- 6712 Feb, [facility] [place] [facility] [address] [id number] [place] [address]- 8339 Feb, [facility] [place] [facility] [address] [id number] [place] [address]- 9413 Feb, [facility] [place] [facility] [address] [id number] [place] [address]- 6434 Feb, [facility] [place] [facility] [address] [id number] [place] [address]- 6415 16 Feb, 2014 [facility] [place] [facility] [address] [id number] [place] [address]- 8111 16 Feb, 2014 [facility] [place] [facility] [address] [id number] [place] [address]- 9171 16 Feb, 2014 [facility] [place] [facility] [address] [id number] [place] [address]- 7643 05 Jan, 2014 [facility] [place] [facility] [address] [id number] [place] [address]- 1626 05 Sep, 2013 [facility] [place] [facility] [address] [id number] [place] 5269 Jan, 2013 [facility] [place] [facility] [address] [id number] [place] [address]- 6862 05 Jan, 2013 [facility] [place] [facility] [address] [id number] [place] [address]- 6760 Jan, [facility] [place] [facility] [address] [id number] [place] [address]- 5285 Jan, 2013 [facility] [place] [facility] [address] [id number] [place] [address]- 7701 Jan, 2013 [facility] [place] [facility] [address] [id number] [place] [address]- 0908 Jan, [facility] [place] [facility] [address] [id number] [place] [address]- 7251 Dec, [facility] [place] [facility] [address] [id number] [place] [address]- 4423 Dec, [facility] [place] [facility] [address] [id number] [place] [address]- 7928 Dec, [facility] [place] [facility] [address] [id number] [place] [address]- 9495 Dec, [facility] [place] [facility] [address] [id number] [place] [address]- 0013 Dec, [facility] [place] [facility] [address] [id number] [place] [address]- 9361 Dec, [facility] [place] [facility] [address] [id number] [place] [address]- 8716 Dec, [facility] [place] [facility] [address] [id number] [place] [address]- 6736 Dec, [facility] [place] [facility] [address] [id number] [place] [address]- 7904 Dec, [facility] [place] [facility] [address] [id number] [place] [address]- 4288 Dec, [facility] [place] [facility] [address] [id number] [place] [address]- 1177 Dec, [facility] [place] [facility] [address] [id number] [place] [address]- 6373 Dec, [facility] [place] [facility] [address] [id number] [place] [address]- 2056 Dec, [facility] [place] [facility] [address] [id number] [place] [address]- 8588 Dec, [facility] [place] [facility] [address] [id number] [place] [address]- 0377 Dec, [facility] [place] [facility] [address] [id number] [place] [address]- 9300 Dec, [facility] [place] [facility] [address] [id number] [place] [address]- 6416 Dec, [facility] [place] [facility] [address] [id number] [place] [address]- 8490 Nov, [facility] [place] [facility] [address] [id number] [place] [address]- 7356 Nov, [facility] [place] [facility] [address] [id number] [place] [address]- 2375 Nov, [facility] [place] [facility] [address] [id number] [place] [address]- 3703 Nov, [facility] [place] [facility] [address] [id number] [place] [address]- 4736 Nov, [facility] [place] [facility] [address] [id number] [place] [address]- 2374 Nov, [facility] [place] [facility] [address] [id number] [place] [address]- 9417 Nov, [facility] [place] [facility] [address] [id number] [place] [address]- 4320 Nov, [facility] [place] [facility] [address] [id number] [place] [address]- 3511 Nov, [facility] [place] [facility] [address] [id number] [place] [address]- 0671 Oct, [facility] [place] [facility] [address] [id number] [place] [address]- 4300 Oct, [facility] [place] [facility] [address] [id number] [place] [address]- 2107 Oct, [facility] [place] [facility] [address] [id number] [place] [address]- 8900 Oct, [facility] [place] [facility] [address] [id number] [place] [address]- 0038 Oct, [facility] [place] [facility] [address] [id number] [place] [address]- 9230 Oct, [facility] [place] [facility] [address] [id number] [place] [address]- 9420 Oct, [facility] [place] [facility] [address] [id number] [place] [address]- 3202 Oct, [facility] [place] [facility] [address] [id number] [place] [address]- 0605 Oct, [facility] [place] [facility] [address] [id number] [place] [address]- 4644 Oct, [facility] [place] [facility] [address] [id number] [place] [address]- 1756 September, [facility] [place] [facility] [address] [id number] [place] [address]- 7960 September, [facility] [place] [facility] [address] [id number] [place] [address]- 3626 September, [facility] [place] [facility] [address] [id number] [place] [address]- 9358 September, [facility] [place] [facility] [address] [id number] [place] [address]- 6513 Aug, [facility] [place] [facility] [address] [id number] [place] [address]- 3749 Aug, [facility] [place] [facility] [address] [id number] [place] [address]- 3142 Aug, [facility] [place] [facility] [address] [id number] [place] [address]- 5106 Aug, [facility] [place] [facility] [address] [id number] [place] [address]- 5646 Aug, [facility] [place] [facility] [address] [id number] [place] [address]- 4487 Aug, [facility] [place] [facility] [address] [id number] [place] [address]- 6858 Aug, [facility] [place] [facility] [address] [id number] [place] [address]- 6707 Aug, [facility] [place] [facility] [address] [id number] [place] [address]- 6550 Aug, [facility] [place] [facility] [address] [id number] [place] [address]- 8781 Aug, [facility] [place] [facility] [address] [id number] [place] [address]- 0797 Aug, [facility] [place] [facility] [address] [id number] [place] [address]- 9000 24 Jul, 2013 [facility] [place] [facility] [address] [id number] [place] [address]- 7175 Jul, [facility] [place] [facility] [address] [id number] [place] [address]- 0180 Jul, [facility] [place] [facility] [address] [id number] [place] [address]- 0219 Jul, [facility] [place] [facility] [address] [id number] [place] [address]- 4680 Jul, [facility] [place] [facility] [address] [id number] [place] [address]- 6779 Jul, [facility] [place] [facility] [address] [facility] [id number] [place] [address]- 2313 Jun, [facility] [place] [facility] [address] [id number] [place] [address] 2546 Jun, [facility] [place] [facility] [address] [id number] [place] [address] 2546 Jun, [facility] [place] [facility] [address] [facility] [id number] [place] [address]- 2747 Jun, 2013 [facility] [place] [facility] [address] [id number] [place] [address]- 6996 Jun, [facility] [place] [facility] [address] [id number] [place] [address]- 5160 Jun, [facility] [place] [facility] [address] [facility] [id number] [place] [address]- 3854 Jun, [facility] [place] [facility] [id number] [place] [address]- 1391 Jun, [facility] [place] [facility] [address] [facility] [id number] [place] [address]- 4594 Jun, [facility] [place] [facility] [address] [facility] [id number] [place] [address]- 6146 Jun, [facility] [place] [facility] [address] [facility] [id number] [place] [address]- 4278 Jun, [facility] [place] [facility] [address] [facility] [id number] [address]- 2547 Jun, [facility] [place] [facility] [address] [facility] [id number] [place] [address]- 6256 Jun, [facility] [place] [facility] [address] [facility] [id number] [place] [address]- 8558 Jun, [facility] [place] [facility] [address] [facility] [id number] [place] [address]- 2543 06 Jun, 2013 [facility] [place] [facility] [address] [facility] [id number] [address]- 5474 Jun, [facility] [place] [facility] [address] [id number] [place] [address] Jun, [facility] [place] [facility] [address] [id number] [place] [address] Jun, [facility] [place] [facility] [address] [id number] [place] [address] Jun, [facility] [place] [facility] [address] [id number] [place] [address] Jun, [facility] [place] [facility] [address] [id number] [place] [address] Jun, [facility] [place] [facility] [address] [id number] [place] [address] Jun, [facility] [place] [facility] [address] [id number] [place] [address] May, [facility] [place] [facility] [address] [id number] [place] [address] May, [facility] [place] [facility] [address] [id number] [place] [address] May, [facility] [place] [facility] [address] [id number] [place] [address] May, [facility] [place] [facility] [address] [id number] [place] [address] May, [facility] [place] [facility] [address] [id number] [place] [address] May, [facility] [place] [facility] [address] [id number] [place] [address] May, [facility] [place] [facility] [address] [id number] [place] [address]76 May, [facility] [place] [facility] [address] [id number] [place] [address] May, [facility] [address] [id number] [place] [address] 15 May, 2013 [facility] [place] [facility] [address] [id number] [place] [address] May, [facility] [place] [facility] [address] [id number] [place] [address] May, [facility] [place] [facility] [address] [id number] [place] [address] May, [facility] [place] [facility] [address] [id number] [place] [address]183 May, [facility] [place] [facility] [address] [id number] [place] [address] Apr, [facility] [place] [facility] [address] [id number] [place] [address] Apr, [facility] [place] [facility] [address] [id number] [place] [address] Apr, [facility] [place] [facility] [address] [id number] [place] [address] Apr, [facility] [place] [facility] [address] [id number] [place] [address]48 Apr, [facility] [place] [facility] [address] [id number] [place] [address] Apr, [facility] [place] [facility] [address] [id number] [place] [address] Apr, [facility] [place] [facility] [address] [id number] [place] [address] 59[address] Apr, [facility] [place] [facility] [address] [id number] [place] [address] Mar, [facility] [place] [facility] [address] [id number] [place] [address] Mar, [facility] [place] [facility] [address] [id number] [place] [address] 25[address] Mar, [facility] [place] [facility] [address] [id number] [place] [address] Mar, [facility] [place] [facility] [address] [id number] [place] [address] Feb, [facility] [place] [facility] [address] [facility] [id number] [place] [address]487 Feb, [facility] [place] [facility] [address] [id number] [place] [address] Feb, [facility] [place] [facility] [address] [id number] [place] [address] Feb, [facility] [place] [facility] [address] [facility] [id number] [place] [address] Feb, [facility] [place] [facility] [address] [id number] [place] [address] Feb, [facility] [place] [facility] [address] [facility] [id number] [place] [address] Feb, [facility] [place] [facility] [address] [facility] [id number] [place] [address] 80[address] Feb, [facility] [place] [facility] [address] [facility] [id number] [place] [address] Jan, [facility] [place] [facility] [address] [facility] [id number] [place] [address] Oct, [facility] [place] [facility] [address] [facility] [id number] [place] [address] 25[address] September, [facility] [place] [facility] [address] [facility] [id number] [place] [address] Jun, [facility] [place] [facility] [address] [facility] [id number] [place] [address] 2016 Jun, [facility] [place] [facility] [address] [facility] [id number] [place] [address] Jun, [facility] [place] [facility] [address] [id number] [place] [address] 7627 Jun, [facility] [place] [facility] [address] [id number] [place] [address]- 8429 May, [facility] [place] [facility] [address] [id number] [place] [address] 37[address] Apr, [facility] [place] [facility] [address] [id number] [place] [address] 9013 Apr, [facility] [place] [facility] [address] [id number] [place] [address]- 2275 Apr, [facility] [place] [facility] [address] [id number] [place] [address]- 8826 Apr, [facility] [place] [facility] [address] [id number] [place] [address]- 1715 Mar, [facility] [place] [facility] [address] [id number] [place] [address]- 6966 Mar, [facility] [place] [facility] [address] [id number] [place] [address]- [address] Jan, [facility] [place] [facility] [address] [id number] [place] [address]- 0776 Dec, [facility] [place] [facility] [address] [id number] [place] [address]- 9807 Dec, [facility] [place] [facility] [address] [id number] [place] [address]- 69[address] Dec, [facility] [place] [facility] [address] [id number] [place] [address]- 1757 Dec, [facility] [place] [facility] [address] [id number] [place] [address] Nov, [facility] [place] [facility] [address] [id number] [place] [address] Nov, [facility] [place] [facility] [address] [id number] [place] [address] Nov, [facility] [address] [id number] [place] [address] Nov, [facility] [place] [facility] [address] [id number] [place] [address] Aug, [facility] [place] [facility] [address] [facility] [id number] [place] [address] Aug, [facility] [place] [facility] [address] [id number] [place] [address] Jul, [facility] [place] [facility] [address] [id number] [place] [address] Jul, [facility] [place] [facility] [address] [facility] [id number] [place] [address] Jul, [facility] [address] [facility] [id number] [place] [address] Jul, [facility] [place] [facility] [address] [id number] [place] [address] Jun, [facility] [place] [facility] [address] [id number] [place] [address] Jun, [facility] [place] [facility] [address] [facility] [id number] [place] [address] 14 Jun, 2011 [facility] [place] [facility] [address] [facility] [id number] [place] [address] Jun, [facility] [place] [facility] [address] [facility] [id number] [place] [address] Jun, [facility] [place] [facility] [address] [id number] [place] [address] 08 Jun, 2011 [facility] [place] [facility] [address] [facility] [id number] [place] [address] 04 Jun, 2011 [facility] [place] [facility] [address] [facility] [id number] [place] [address] 02 Jun, 2011 [facility] [place] [facility] [address] [id number] [place] [address] Jun, [facility] [place] [facility] [address] [id number] [place] [address] May, [facility] [place] [facility] [address] [id number] [place] [address] May, [facility] [place] [facility] [address] [id number] [place] [address], [place] [address] May, [facility] [place] [facility] [address] [id number] [place] [address] May, [facility] [place] [facility] [address] [id number] [place] [address] May, [facility] [place] [facility] [address] [id number] [place] [address] Mar, [facility] [place] [facility] [address] [id number] [place] [address] Mar, [facility] [place] [facility] [address] [id number] [place] [address] Mar, [facility] [place] [facility] [address] [id number] [place] [address] Mar, [facility] [place] [facility] [address] [id number] [place] [address] Mar, [facility] [place] [facility] [address] [id number] [place] [address] Feb, [facility] [place] [facility] [address] [id number] [place] [address] Feb, [facility] [place] [facility] [address] [id number] [place] [address] Dec, [facility] [place] [facility] [address] [id number] [place] [address] Apr, [facility] [place] [facility] [address] [id number] [place] [address] 07 Apr, 2010 [facility] [address] [id number] [place] [address] Apr, [facility] [place] [facility] [address] [id number] [place] [address] 29 Feb, 2010 [facility] [place] [facility] [address] [id number] [place] [address] 11 Feb, 2010 [facility] [place] [facility] [address] [id number] [place] [address] Jul, [facility] [place] [facility] [address] [id number] [place] [address] 15 Jun, 2009 [facility] [place] [facility] [address] [id number] [place] [address] 15 May, 2009 [facility] [place] [facility] [address] [id number] [place] [address] Apr, [facility] [place] [facility] [address] [id number] [place] [address] Apr, [facility] [place] [facility] [address] [id number] [place] [address] Apr, [facility] [place] [facility] [address] [id number] [place] [address] Mar, [facility] [place] [facility] [address] [id number] [place] [address] Jul, [facility] [place] [facility] [address] [id number] [place] [address] 16 Jun, 2008 [facility] [place] [facility] [address] [id number] [place] [address] 15 Jan, 2008 [facility] [place] [facility] [address] [id number] [place] [address] 10 Oct, 2007 [facility] [place] [facility] [address] [id number] [place] [address] September, [facility] [place] [facility] [address] [facility] [id number] [place] [address] [address], [address] [facility] [address] [facility] [id number] [place] [address] September, [facility] [address] [id number] [address] Dec, [facility] [address] [facility] [id number] [place] [address] Mar, IMMUNIZATIONS No Known Immunizations SOCIAL HISTORY Never Assessed REASON FOR VISIT Prior Authorization- Latuda PLAN OF CARE VITAL SIGNS MEDICATIONS Medication Instructions Dosage Frequency Start Date End Date Duration Status Latuda 40 mg Orally Once a day 1 tablet with food 24h Jun, 30 day(s) Active RESULTS No Results PROCEDURES No Known procedures [...]
--- OUTSIDE RECORDS SUMMARY | 2018-07-08 18:37 | XMS REPORT ---
Author Author RACHEL WING [employer] Address Unknown Phone Unavailable Care Team Providers Care Security Operations Center Analyst Name Role Phone RACHEL WING CP Unavailable Allergies, Adverse Reactions, Alerts Substance Reaction Event Type Zoloft Info Not Available Drug Allergy Prednisone irritable Drug Allergy Vancomycin documented reaction to IV antibiotics during hospitalization. Drug Allergy Problems Problem Type Condition Code Onset Dates Condition Status Problem Suicide and self-inflicted injury by cutting and piercing instrument E956 Active Problem Herpes simplex without mention of complication 054.9 Active Problem Bipolar disorder, unspecified F31.9 Active Problem Esophageal reflux K21.9 Active Assessment Dental examination Z01.20 Active Medications Medication Code System Code Instructions Start Date End Date Status Dosage Amoxicillin [facility] [address]-63 500 MG Orally Three times a day 1 capsule Depo-Provera [facility] [address]-35 150 MG/ML Intramuscular 1 ml Procedures Procedure Coding System Code Date INTRAORL-PERIAPICAL 1 FILM 31711 CPT-4 D0220 Feb 24, 2016 INTRAORL-PERIAPICAL EA ADD FILM CPT-4 D0230 Feb 24, 2016 LTD ORAL EVALUATION - PROBLEM FOCUS CPT-4 D0140 Feb 24, 2016 BITEWING - SINGLE FILM CPT-4 D0270 Feb 24, 2016 Vital Signs Date/Time: Feb 24, 2016 Blood Pressure Diastolic 75 mmHg Blood Pressure Systolic 109 mmHg Results No Known Results Summary Purpose eClinicalWorks Submission
--- OUTSIDE RECORDS SUMMARY | 2018-07-08 18:37 | XMS REPORT ---
Author Author SHAY SAINZ [facility] eClinicalWorks Address Unknown Phone Unavailable Care Team Providers Care Research Greenhouse Supervisor Name Role Phone SHAY SAINZ CP Unavailable Allergies No Known Allergies Problems Problem Type Condition ICD-9 Code Onset Dates Condition Status Problem Trichomonal vulvovaginitis 131.01 Active Assessment test negative V72.41 Active Problem Contact with or exposure to venereal diseases V01.6 Active Problem Counseling on other sexually transmitted diseases V65.45 Active Problem Problems related to high-risk sexual behavior V69.2 Active Problem Screening for diabetes mellitus V77.1 Active Problem examination or test, positive result V72.42 Active Problem Unspecified septicemia 038.9 Active Problem Carrier or suspected carrier of Group B streptococcus V02.51 Active Problem Abdominal pain, unspecified site 789.00 Active Problem Maternal anemia of mother, complicating , childbirth, or the puerperium, unspecified as to episode of care 648.20 Active Problem Panic disorder without agoraphobia 300.01 Active Problem Other maternal venereal diseases, complicating , childbirth, or the puerperium, unspecified as to episode of care 647.20 Active Problem Screening examination for venereal disease V74.5 Active Problem examination or test, negative result V72.41 Active Problem Contact dermatitis and other eczema, due to unspecified cause 692.9 Active Problem Screening for depression V79.0 Active Problem Esophageal reflux 530.81 Active Problem Unspecified gastritis and gastroduodenitis without mention of hemorrhage 535.50 Active Problem Unspecified constipation 564.00 Active Problem Encounter for contraceptive management V25.9 Active Problem Need for prophylactic vaccination and inoculation against rubella alone V04.3 Active Problem Surveillance of previously prescribed intrauterine contraceptive device V25.42 Active Problem Supervision of high-risk of young primigravida V23.83 Active Problem Encounter for removal of intrauterine contraceptive device V25.12 Active Problem Unspecified contraceptive management V25.9 Active Problem Herpes simplex without mention of complication 054.9 Active Problem Screening for iron deficiency anemia V78.0 Active Problem Encounter for insertion of intrauterine contraceptive device V25.11 Active Problem Supervision of normal first V22.0 Active Problem Suicide and self-inflicted injury by cutting and piercing instrument E956 Active Problem Pain in joint, ankle and foot 719.47 Active Problem Other general counseling and advice for contraceptive management V25.09 Active Problem General counseling for prescription of oral contraceptives V25.01 Active Medications No Known Medications Procedures Procedure Coding System Code Date URINE TEST CPT-4 72046 Jan 12, 2015 Results No Known Results Summary Purpose eClinicalWorks Submission
--- OUTSIDE RECORDS SUMMARY | 2018-07-08 18:37 | XMS REPORT ---
Author Author PARESH CHEN Organization e[employer] Address Unknown Phone Unavailable Care Team Providers Care Senior Regulatory Affairs Specialist Name Role Phone PARESH CHEN CP Unavailable Allergies, Adverse Reactions, Alerts Substance [...] Active Problem Bipolar disorder, unspecified F31.9 Active Assessment Dizziness R42 Active Assessment Nausea R11.0 Active Problem Esophageal reflux K21.9 Active Assessment Bilateral impacted cerumen H61.23 Active Medications Medication Code System Code Instructions Start Date End Date Status Dosage Paroxetine HCl [facility] [address]-01 20 mg Orally Once a day October 23, 2015 1 tablet in the morning Zofran [facility] [address]-93 4 MG Orally every 6 hours Jan 14, 2016 1 tablet Meclizine HCl [facility] [address]-34 25 MG Orally TID Jan 14, 2016 1 tablet as needed Depo-Provera [facility] [address]-44 150 MG/ML Intramuscular 1 ml Procedures Procedure Coding System Code Date Office Visit, Est Pt., Level 3 CPT-4 36975 Jan 14, 2016 Vital Signs Date/Time: Jan 14, 2016 Cardiac Monitoring Heart Rate 88 bpm Weight 105.6 lbs Height 59 in Wt Percentile 9.34 % BMI 21.33 Index Blood Pressure Diastolic 68 mmHg Blood Pressure Systolic 102 mmHg BMIPercentile 46.45 % Results No Known Results Summary Purpose eClinicalWorks Submission
--- OUTSIDE RECORDS SUMMARY | 2018-07-08 18:37 | XMS REPORT ---
Author Author ROBERTO FIGUEROA [employer] Address Unknown Phone Unavailable Care Team Providers Care Homogenizer Operator Name Role Phone ROBERTO FIGUEROA Unavailable Allergies No Known Allergies Problems Problem Type Condition Code Onset Dates Condition Status Problem Major depressive disorder, recurrent episode, moderate F33.1 Active Problem Depo-Provera contraceptive status V25.49 Active Problem Generalized anxiety disorder F41.1 Active Problem Herpes simplex without mention of complication 054.9 Active Problem Esophageal reflux 530.81 Active Problem Suicide and self-inflicted injury by cutting and piercing instrument E956 Active Medications No Known Medications Results No Known Results Summary Purpose eClinicalWorks Submission
--- OUTSIDE RECORDS SUMMARY | 2018-07-08 18:37 | XMS REPORT ---
Author Author ROBERTO FIGUEROA [facility] Address [address] [place] [address] Care Team Providers Care Baker Test Name Role Phone ROBERTO FIGUEROA Unavailable PROBLEMS Type Condition ICD9-CM Code FOP99-ZT Code Onset Dates Condition Status SNOMED Code Problem Late period N92.6 Active 643344659 Problem Bipolar disorder, unspecified F31.9 Active 25862896 Problem Suicide and self-inflicted injury by cutting and piercing instrument E956 Active 595005732 Problem Esophageal reflux K21.9 Active 192436108 Problem Herpes simplex without mention of complication 054.9 Active 478126084 ALLERGIES No Information SOCIAL HISTORY Never Assessed PLAN OF CARE VITAL SIGNS MEDICATIONS Unknown Medications RESULTS No Results PROCEDURES No Known procedures IMMUNIZATIONS No Known Immunizations MEDICAL (GENERAL) HISTORY Type Description Date Medical History depression Medical History anxiety disorder Medical History Major depressive disorder, recurrent episode, moderate Surgical History tonsillectomy age 3 Hospitalization History cellulitis of lip 06/2014
--- OUTSIDE RECORDS SUMMARY | 2018-07-08 18:37 | XMS REPORT ---
Author Author ROBERTO FIGUEROA [employer] Address Unknown Phone Unavailable Care Team Providers Care Sod Stripper Name Role Phone ROBERTO FIGUEROA Unavailable Allergies No Known Allergies Problems Problem Type Condition Code Onset Dates Condition Status Problem Generalized anxiety disorder F41.1 Active Problem Major depressive disorder, recurrent episode, moderate F33.1 Active Problem Bipolar disorder, unspecified F31.9 Active Problem Herpes simplex without mention of complication 054.9 Active Assessment Encounter for Depo-Provera contraception Z30.42 Active Problem Esophageal reflux K21.9 Active Problem Suicide and self-inflicted injury by cutting and piercing instrument E956 Active Medications No Known Medications Procedures Procedure Coding System Code Date DEPO PROVERA (150 MG/ML) CPT-4 J1050 September 21, 2015 THER/PROPH/DIAG INJ, SC/IM CPT-4 64114 September 21, 2015 URINE TEST CPT-4 69227 September 21, 2015 Results Name Result Date Reference Range Unit Abnormality Flag TEST, URINE (IN HOUSE) ----RESULTS negative [id number] ----Lot # [id number] ----Control + [id number] ----Exp date [id number] Summary Purpose eClinicalWorks Submission
--- OUTSIDE RECORDS SUMMARY | 2018-07-08 18:37 | XMS REPORT ---
Author Author ROBERTO FIGUEROA [facility] Address [address] [place] [address] Care Team Providers Care Cake Batter Mixer Name Role Phone HENRYYADIRA PORTILLOHANY Unavailable PROBLEMS Type Condition ICD9-CM Code DRM48-AO Code Onset Dates Condition Status SNOMED Code Assessment Well woman exam Z01.419 Apr, Active 615841684 Problem Bipolar disorder, unspecified F31.9 Active 06527553 Problem Suicide and self-inflicted injury by cutting and piercing instrument E956 Active Assessment Encounter for female control Z30.019 Apr, Active 01503200 Assessment Encounter for Depo-Provera contraception Z30.42 Apr, Active 049403451 Problem Herpes simplex without mention of complication 054.9 Active 348143804 Problem Esophageal reflux K21.9 Active 134314282 ALLERGIES Substance Reaction Event Type Date Status Zoloft Unknown Drug Allergy Apr, Active Prednisone irritable Drug Allergy Apr, Active Vancomycin documented reaction to IV antibiotics during hospitalization. Drug Allergy Apr, Active SOCIAL HISTORY No smoking Hx information available PLAN OF CARE Activity Details Pending Test GC/CHLAM URINE (STATE) Pending Test SYPHILIS (STATE) Pending Test HIV (STATE) 1 Year,Reason: VITAL SIGNS Height 59 in 2016-04-29 Weight 119.3 lbs 2016-04-29 Heart Rate 88 bpm 2016-04-29 Respiratory Rate 18 2016-04-29 BMI 24.09 kg/m2 2016-04-29 Blood pressure systolic 117 mmHg 2016-04-29 Blood pressure diastolic 78 mmHg 2016-04-29 MEDICATIONS Medication Instructions Dosage Frequency Start Date End Date Duration Status Depo-Provera 150 MG/ML 1 ml Active RESULTS Name Result Date Reference Range TEST, URINE (IN HOUSE) 2016-04-29 RESULTS Negative Lot # [id number] Control + Exp date GC/CHLAM URINE (STATE) 2016-04-29 CHLAMYDIA POS GC Neg SYPHILIS (STATE) 2016-04-29 HIV (STATE) 2016-04-29 PROCEDURES Procedure Date Ordered Related Diagnosis Body Site ROUTINE VENIPUNCTURE 2016-04-29 N/A URINE TEST Apr 29, 2016 VENIPUNCT, ROUTINE* Apr 29, 2016 Preventive Care Est Pt. Age 18-39 Apr 29, 2016 No Charge Apr 29, 2016 THER/PROPH/DIAG INJ, SC/IM Apr 29, 2016 DEPO PROVERA (150 MG/ML) Apr 29, 2016 IMMUNIZATIONS Vaccine Route Administration Date Status DEPO PROVERA (150 MG/ML) IM Intramuscular Apr 29, 2016 Administered
--- OUTSIDE RECORDS SUMMARY | 2018-07-08 18:37 | XMS REPORT ---
Author SHAY Lopez [facility] eClinicalWorks Address Unknown Phone Unavailable Care Team Providers Care Chief Solution Architect Name Role Phone SHAY SAINZ CP Unavailable Allergies No Known Allergies Problems Problem Type Condition Code Onset Dates Condition Status Problem Major depressive disorder, recurrent episode, moderate F33.1 Active Problem Depo-Provera contraceptive status V25.49 Active Problem Generalized anxiety disorder F41.1 Active Problem Herpes simplex without mention of complication 054.9 Active Assessment Encounter for Depo-Provera contraception Z30.42 Active Problem Esophageal reflux 530.81 Active Problem Suicide and self-inflicted injury by cutting and piercing instrument E956 Active Medications No Known Medications Procedures Procedure Coding System Code Date DEPO PROVERA (150 MG/ML) CPT-4 J1050 Apr 15, 2015 THER/PROPH/DIAG INJ, SC/IM CPT-4 69710 Apr 15, 2015 URINE TEST CPT-4 20104 Apr 15, 2015 Results No Known Results Summary Purpose eClinicalWorks Submission
--- OUTSIDE RECORDS SUMMARY | 2018-07-08 18:37 | XMS REPORT ---
Author Author ROBERTO FIGUEROA [facility] Address [address] [place] [address] Care Team Providers Care Journey Lineman Name Role Phone HENRYYADIRA PORTILLOHANY Unavailable PROBLEMS Type Condition ICD9-CM Code ECP19-RR Code Onset Dates Condition Status SNOMED Code Problem Yeast infection involving the vagina and surrounding area B37.3 Active 41319237 Problem Trichomonas vaginalis infection A59.9 Active 56261152 Problem Esophageal reflux K21.9 Active 385780616 Problem Late period N92.6 Active 905639781 Problem Bipolar disorder, unspecified F31.9 Active [id number] ALLERGIES No Information ENCOUNTERS Encounter Location Date Diagnosis [place] [address] [address]- [address] Aug, Yeast infection involving the vagina and surrounding area B37.3 ; Bipolar disorder, unspecified F31.9 and Trichomonas vaginalis infection A59.9 [place] [address] [place] [id number] [place] [address] 44917- 6275 Jun, Bipolar disorder, unspecified F31.9 [place] [address] [place] [id number] [place] [address] 64860- 0469 Jun, Encounter for surveillance of injectable contraceptive Z30.42 and Bipolar disorder, unspecified F31.9 [place] [address] [place] [id number] [place] [address] 23639- 4481 May, Encounter for Depo-Provera contraception Z30.42 [facility] [address] [place] [id number] [place] [address] 99172 -7675 Apr, Syncope, unspecified syncope type R55 [place] [address] 45764- 7604 Mar, Bipolar disorder, unspecified F31.9 and High risk medication use Z79.899 [facility] [place] [address] [place] [id number] [place] [address] 13255- 2145 Feb, [facility] [place] [address] [place] [address] [id number] [place] [address] 42366- 5357 Feb, Encounter for Depo-Provera contraception Z30.42 [facility] [place] [address] 63346- 5612 Nov, Encounter for Depo-Provera contraception Z30.42 [place] [address] 91777- 5443 September, [facility] [place] [address] 66425- 1099 Aug, [place] [address] [place] [id number] [place] [address] 25664- 5275 Aug, Late period N92.6 ; STD exposure Z20.2 ; control counseling Z30.09 and Encounter for Depo-Provera contraception Z30.42 [facility] [address] [place] [id number] [place] [address] 78029 -1156 Jul, Body aches R52 ; Influenza A J10.1 ; Impacted cerumen of left ear H61.22 and Acute serous otitis media of left ear, recurrence not specified H65.02 [facility] [place] [address] [place] [id number] [place] [address] 48254- 7780 May, [facility] [place] [address] [place] [id number] [place] [address] 24347- 9877 Apr, Encounter for female control Z30.019 ; Encounter for Depo-Provera contraception Z30.42 and Well woman exam Z01.419 [facility] [address] [place] [id number] [place] [address] [id number] Feb, Dental examination Z01.20 [facility] [address] [place] [id number] [place] [address] [id number] Feb, Dental caries K02.9 [facility] [address] [place] [id number] [place] [address] [id number] Feb, Dental examination Z01.20 [facility] [address] [place] [address] [id number] [place] [address] 37060 -5344 Dec, Bilateral impacted cerumen H61.23 ; Dizziness R42 and Nausea R11.0 [facility] [place] [address] 05907- 8007 Dec, Encounter for Depo-Provera contraception Z30.42 [place] [address] 63726- 4176 Oct, Bipolar affective disorder, currently depressed, moderate F31.32 [place] [address] 32525- 7543 September, Bipolar disorder, unspecified F31.9 [facility] [place] [address] 64466- 3478 September, Bipolar disorder, unspecified F31.9 [place] [address] 84283- 9603 September, Bipolar disorder, unspecified F31.9 [place] [address] 97559- 3223 September, Encounter for Depo-Provera contraception Z30.42 [facility] [place] [address] 26877- 2984 Aug, Bipolar disorder, unspecified F31.9 [place] [address] 42036- 7960 Jun, Encounter for Depo-Provera contraception Z30.42 [facility] [place] [address] 65661- 6650 Apr, URI (upper respiratory infection) J06.9 [facility] [place] [address] 83882- 7399 Mar, Encounter for Depo-Provera contraception Z30.42 [facility] [place] [address] [place] [id number] [place] [address] 99182- 2054 Mar, [facility] [place] [address] [place] [id number] [place] [address] 32767- 8298 Mar, Generalized anxiety disorder F41.1 and Major depressive disorder, recurrent episode, moderate F33.1 [facility] [place] [address] 53267- 8484 Jan, Esophageal reflux 530.81 ; Depression 311 and Anxiety 300.00 [facility] [place] [address] [place] [id number] [place] [address] 38384- 7896 Dec, Depo-Provera contraceptive status V25.49 [facility] [place] [address] [place] [id number] [place] [address] 99902- 0943 Dec, test negative V72.41 [facility] [place] [address] [place] [id number] [place] [address] 07248- 3400 Oct, [facility] [place] [address] [place] [id number] [place] [address] 40394- 3409 Oct, [facility] [place] [address] [place] [id number] [place] [address] 08704- 0444 September, [facility] [place] [address] [place] [id number] [place] [address] 64066- 7394 September, [facility] [place] [address] [place] [id number] [place] [address] 07586- 3282 September, [facility] [place] [address] [place] [id number] [place] [address] 04081- 9107 September, [facility] [place] [address] [place] [id number] [place] [address] 29485- 4072 September, [facility] [place] [address] [place] [id number] [place] [address] 56396- 5005 September, [facility] [place] [address] [facility] [id number] [address]- 7074 September, [facility] [address] [id number], [place] [address]- 5756 September, Other general counseling and advice for contraceptive management V25.09 [facility] [address] [id number], [place] [address]- 4953 September, [facility] [address] [id number], [place] [address]- 9918 September, [facility] [address] [id number] [place] [address]- 7590 September, [facility] [address] [id number], [place] [address]- 8621 September, [facility] [address] [id number], [place] [address]- 1918 29 Aug, 2014 [facility] [address] [id number], [place] [address]- 6860 28 Aug, 2014 [facility] [address] [id number], [place] [address]- 0233 14 Aug, 2014 [facility] [address] [facility] [id number], [place] [address]- 0524 Aug, [facility] [address] [id number], [place] [address]- 5646 Jul, [facility] [address] [id number], [place] [address]- 1243 27 Jul, 2014 [facility] [address] [id number] [place] [address]- 6870 Jul, [facility] [address] [id number], [place] [address]- 8229 Jul, [facility] [address] [id number], [place] [address]- 8909 Jul, [facility] [address] [id number] [place] [address]- 3534 18 Jul, 2014 [facility] [place] [facility] [address] [id number] [place] [address]- 7047 18 Jul, 2014 [facility] [place] [facility] [address] [id number] [place] [address]- 4356 16 Jun, 2014 [facility] [place] [facility] [address] [id number] [place] [address]- 2706 Jun, 2014 [facility] [place] [facility] [address] [id number] [place] [address]- 6301 Jun, 2014 [facility] [place] [facility] [address] [id number] [place] [address]- 2175 Jun, 2014 [facility] [place] [facility] [address] [facility] [id number] [place] [address]- 8563 Jun, 2014 [facility] [place] [facility] [address] [facility] [id number] [place] [address]- 5429 Jun, 2014 [facility] [place] [facility] [address] [id number] [place] [address]- 6531 May, [facility] [place] [facility] [address] [facility] [id number] [place] [address]- 2524 May, [facility] [place] [facility] [address] [facility] [id number] [place] [address]- 2801 Apr, [facility] [place] [facility] [address] [id number] [place] [address]- 4143 Apr, [facility] [place] [facility] [address] [id number] [place] [address]- 8336 Apr, [facility] [place] [facility] [address] [id number] [place] [address]- 4306 Apr, [facility] [place] [facility] [address] [facility] [id number] [place] [address]- 5586 Apr, [facility] [place] [facility] [address] [facility] [id number] [place] [address]- 5088 Apr, [facility] [place] [facility] [address] [id number] [place] [address]- 2804 Mar, [facility] [place] [facility] [address] [id number] [place] [address]- 5268 Mar, [facility] [place] [facility] [address] [id number] [place] [address]- 7277 Mar, [facility] [place] [facility] [address] [id number] [place] [address]- 2739 Mar, [facility] [place] [facility] [address] [id number] [place] [address]- 0569 Mar, [facility] [place] [facility] [address] [id number] [place] [address]- 0582 Feb, [facility] [place] [facility] [address] [id number] [place] [address]- 3744 Feb, [facility] [place] [facility] [address] [id number] [place] [address]- 9104 Feb, [facility] [place] [facility] [address] [id number] [place] [address]- 1888 Feb, [facility] [place] [facility] [address] [id number], [place] [address]- 5589 Feb, [facility] [place] [facility] [address] [id number], [place] [address]- 4150 Feb, [facility] [place] [facility] [address] [id number], [place] [address]- 8167 Feb, [facility] [place] [facility] [address] [id number], [place] [address]- 4026 Feb, [facility] [place] [facility] [address] [id number] 6917 Jan, [facility] [place] [facility] [address] [id number] 7438 05 Jan, 2014 [facility] [place] [facility] [address] [id number], [place] [address]- 2330 05 Jan, 2013 [facility] [place] [facility] [address] [id number] [place] [address]- 1645 05 Jan, 2013 [facility] [place] [facility] [address] [id number] [place] [address]- 7523 Jan, 2013 [facility] [place] [facility] [address] [id number] [place] [address]- 3152 Jan, 2013 [facility] [place] [facility] [address] [id number] [place] [address]- 5703 Jan, 2013 [facility] [place] [facility] [address] [id number] [place] [address]- 3653 Jan, [facility] [place] [facility] [address] [id number] [place] [address]- 4095 Dec, [facility] [place] [facility] [address] [id number] [place] [address]- 2063 Dec, [facility] [place] [facility] [address] [id number] [place] [address]- 3362 Dec, [facility] [place] [facility] [address] [id number] [place] [address]- 1594 Dec, [facility] [place] [facility] [address] [id number] [place] [address]- 0259 Dec, [facility] [place] [facility] [address] [id number] [place] [address]- 2000 Dec, [facility] [place] [facility] [address] [id number], [place] [address]- 3159 Dec, [facility] [place] [facility] [address] [id number] [place] [address]- 4160 Dec, [facility] [place] [facility] [address] [id number] [place] [address]- 5250 Dec, [facility] [place] [facility] [address] [id number] [place] [address]- 7364 Dec, [facility] [place] [facility] [address] [id number] [place] [address]- 7603 Dec, [facility] [place] [facility] [address] [id number] [place] [address]- 8410 Dec, [facility] [place] [facility] [address] [id number] [place] [address]- 4844 Dec, [facility] [place] [facility] [address] [id number] [place] [address]- 1020 Dec, [facility] [place] [facility] [address] [id number] [place] [address]- 9993 Dec, [facility] [place] [facility] [address] [id number] [place] [address]- 5268 Dec, [facility] [place] [facility] [address] [id number] [place] [address]- 8351 Dec, [facility] [place] [facility] [address] [id number] [place] [address]- 7543 Nov, [facility] [place] [facility] [address] [id number] [place] [address]- 1502 Nov, [facility] [place] [facility] [address] [id number] [place] [address]- 8969 Nov, [facility] [place] [facility] [address] [id number] [place] [address]- 1785 Nov, [facility] [place] [facility] [address] [id number] [place] [address]- 3235 Nov, [facility] [place] [facility] [address] [id number] [place] [address]- 4490 Nov, [facility] [place] [facility] [address] [id number] [place] [address]- 1124 Nov, [facility] [place] [facility] [address] [id number] [place] [address]- 9785 Nov, [facility] [place] [facility] [address] [id number] [place] [address]- 4898 Nov, [facility] [place] [facility] [address] [id number] [place] [address]- 1680 Oct, [facility] [place] [facility] [address] [id number] [place] [address]- 2015 Oct, [facility] [place] [facility] [address] [id number] [place] [address]- 0357 Oct, [facility] [place] [facility] [address] [id number] [place] [address]- 0165 Oct, [facility] [place] [facility] [address] [id number] [place] [address]- 5623 Oct, [facility] [place] [facility] [address] [id number] [place] [address]- 3983 Oct, [facility] [place] [facility] [address] [id number] [place] [address]- 9938 Oct, [facility] [place] [facility] [address] [id number] [place] [address]- 5835 Oct, [facility] [place] [facility] [address] [id number] [place] [address]- 3831 Oct, [facility] [place] [facility] [address] [id number] [place] [address]- 9772 Oct, [facility] [place] [facility] [address] [id number], [place] [address]- 1737 September, [facility] [place] [facility] [address] [id number], [place] [address]- 2100 September, [facility] [place] [facility] [address] [id number] [place] [address]- 8774 September, [facility] [place] [facility] [address] [id number] [place] [address]- 9274 September, [facility] [place] [facility] [address] [id number] [place] [address]- 0585 Aug, [facility] [place] [facility] [address] [id number] [place] [address]- 5833 Aug, [facility] [place] [facility] [address] [id number] [place] [address]- 6920 Aug, [facility] [place] [facility] [address] [id number] [place] [address]- 5185 Aug, [facility] [place] [facility] [address] [id number] [place] [address]- 5953 Aug, [facility] [place] [facility] [address] [id number] [place] [address]- 1752 15 Aug, 2013 [facility] [place] [facility] [address] [id number] [place] [address]- 5394 15 Aug, 2013 [facility] [place] [facility] [address] [id number] [place] [address]- 2577 Aug, [facility] [place] [facility] [address] [id number] [place] [address]- 0128 Aug, [facility] [place] [facility] [address] [id number] [place] [address]- 8033 Aug, [facility] [place] [facility] [address] [id number] [place] [address]- 2761 Aug, [facility] [place] [facility] [address] [id number] [place] [address]- 4079 24 Jul, 2013 [facility] [place] [facility] [address] [id number] [place] [address]- 0922 24 Jul, 2013 [facility] [place] [facility] [address] [id number] [place] [address]- 5486 Jul, [facility] [place] [facility] [address] [id number] [place] [address]- 7617 10 Jul, 2013 [facility] [place] [facility] [address] [id number] [place] [address]- 7024 Jul, [facility] [place] [facility] [address] [id number] [place] [address]- 1579 Jul, [facility] [place] [facility] [address] [id number] [place] [address]- 3635 Jun, [facility] [place] [facility] [address] [id number] [place] [address]- 8246 Jun, [facility] [place] [facility] [address] [id number] [place] [address]- 3496 Jun, [facility] [place] [facility] [address] [id number] [place] [address]- 2546 Jun, [facility] [place] [facility] [address] [id number] [place] [address] 2548 Jun, [facility] [place] [facility] [address] [id number] [place] [address]- 4566 Jun, [facility] [place] [facility] [address] [facility] [id number] [place] [address]- 8680 Jun, [facility] [place] [facility] [address] [id number] [place] [address]- 2866 Jun, [facility] [place] [facility] [address] [id number] [place] [address]- 4734 Jun, [facility] [place] [facility] [address] [facility] [id number] [place] [address]- 2527 Jun, [facility] [place] [facility] [address] [facility] [id number] [place] [address]- 3505 Jun, [facility] [place] [facility] [address] [id number] [place] [address]- 2542 Jun, [facility] [place] [facility] [address] [id number] [place] [address]- 2543 Jun, [facility] [place] [facility] [address] [id number] [place] [address]- 9169 Jun, [facility] [place] [facility] [address] [facility] [id number] [place] [address]- 2546 Jun, [facility] [place] [facility] [address] [id number] [place] [address]- 1027 Jun, [facility] [place] [facility] [address] [id number] [place] [address]- 2170 Jun, [facility] [place] [facility] [address] [id number] [place] [address]- 4206 Jun, [facility] [place] [facility] [address] [id number] [place] [address]- 9072 Jun, [facility] [place] [facility] [address] [id number] [place] [address]- 8980 Jun, [facility] [place] [facility] [address] [id number] [place] [address]- 4902 Jun, [facility] [place] [facility] [address] [id number] [place] [address]- 4417 Jun, [facility] [place] [facility] [address] [id number] [place] [address]- 8462 May, [facility] [place] [facility] [address] [id number] [place] [address]- 7539 May, [facility] [place] [facility] [address] [id number] [place] [address]- 5392 May, [facility] [place] [facility] [address] [id number] [place] [address]- 9737 May, [facility] [place] [facility] [address] [id number] [place] [address]- 8289 May, [facility] [place] [facility] [address] [id number] [place] [address]- 1548 May, [facility] [place] [facility] [address] [id number] [place] [address]- 4339 May, [facility] [place] [facility] [address] [id number] [place] [address] May, [facility] [place] [facility] [address] [id number] [address] May, [facility] [address] [id number] [place] [address] May, [facility] [place] [facility] [address] [id number] [place] [address] May, [facility] [place] [facility] [address] [id number] [place] [address] May, [facility] [place] [facility] [address] [id number] [place] [address] May, [facility] [place] [facility] [address] [id number] [place] [address] May, [facility] [place] [facility] [address] [id number] [place] [address] Apr, [facility] [address] [id number] [place] [address] Apr, [facility] [place] [facility] [address] [id number] [place] [address] Apr, [facility] [place] [facility] [address] [id number] [place] [address] Apr, [facility] [place] [facility] [address] [id number] [place] [address] Apr, [facility] [place] [facility] [address] [id number] [place] [address] Apr, [facility] [place] [facility] [address] [id number], [place] [address] Apr, [facility] [place] [facility] [address] [id number] [place] [address] Apr, [facility] [place] [facility] [address] [id number] [place] [address] Mar, [facility] [place] [facility] [address] [id number] [place] [address] Mar, [facility] [place] [facility] [address] [id number] [place] [address] Mar, [facility] [place] [facility] [address] [id number] [place] [address] Mar, [facility] [place] [facility] [address] [id number] [place] [address] Feb, [facility] [place] [facility] [address] [id number] [place] [address] Feb, [facility] [place] [facility] [address] [id number] [place] [address] Feb, [facility] [place] [facility] [address] [id number] [place] [address] Feb, [facility] [place] [facility] [address] [id number] [place] [address] Feb, [facility] [place] [facility] [address] [id number] [place] [address] Feb, [facility] [place] [facility] [address] [id number] [place] [address] Feb, [facility] [place] [facility] [address] [id number] [place] [address] Feb, [facility] [place] [facility] [address] [id number] [place] [address] 25[address] Jan, [facility] [place] [facility] [address] [id number] [place] [address]- [address] Oct, [facility] [place] [facility] [address] [id number] [place] [address] September, [facility] [place] [facility] [address] [id number] [place] [address] Jun, [facility] [place] [facility] [address] [id number] [place] [address] Jun, [facility] [place] [facility] [address] [id number] [place] [address] Jun, [facility] [place] [facility] [address] [id number] [place] [address] Jun, [facility] [place] [facility] [address] [id number] [place] [address]287 May, [facility] [place] [facility] [address] [facility] [id number] [place] [address] Apr, [facility] [place] [facility] [address] [id number] [place] [address] Apr, [facility] [place] [facility] [address] [id number] [place] [address] Apr, [facility] [place] [facility] [address] [id number] [place] [address] Apr, [facility] [place] [facility] [address] [id number] [place] [address] Mar, [facility] [place] [facility] [address] [id number] [place] [address] Mar, [facility] [place] [facility] [address] [id number] [place] [address] Jan, [facility] [place] [facility] [address] [id number] [place] [address] Dec, [facility] [place] [facility] [address] [id number] [place] [address]- [address] Dec, [facility] [place] [facility] [address] [id number] [place] [address]- [address] Dec, [facility] [place] [facility] [address] [id number] [place] [address] Dec, [facility] [place] [facility] [address] [facility] [id number] [place] [address] Nov, [facility] [place] [facility] [address] [id number] [place] [address] Nov, [facility] [place] [facility] [address] [id number] [place] [address] Nov, [facility] [address] [id number] [place] [address] Nov, [facility] [place] [facility] [address] [id number] [place] [address] Aug, [facility] [address] [id number] [place] [address] Aug, [facility] [address] [id number] [place] [address] Jul, [facility] [address] [id number] [place] [address] Jul, [facility] [address] [facility] [id number] [place] [address] Jul, [facility] [id number] [place] [address] Jul, [facility] [facility] [address] [id number] [place] [address] Jun, [facility] [address] [id number] [place] [address] 28 Jun, [address] [facility] [address] [id number] [place] [address] 14 Jun, 2011 [facility] [place] [facility] [id number] [place] [address] 13 Jun, 2011 [facility] [address] [id number] [place] [address] 09 Jun, 2011 [facility] [place] [facility] [address] [id number] [place] [address] 08 Jun, 2011 [facility] [place] [facility] [address] [facility] [id number] [place] [address] 04 Jun, 2011 [facility] [place] [facility] [id number] [place] [address] Jun, [facility] [place] [facility] [address] [id number] [place] [address] Jun, [facility] [place] [facility] [address] [id number] [place] [address] May, [facility] [place] [facility] [address] [id number] [place] [address] May, [facility] [place] [facility] [address] [id number] [place] [address] May, [facility] [place] [facility] [address] [id number] [place] [address] May, [facility] [place] [facility] [address] [id number] [place] [address] May, [facility] [place] [facility] [address] [id number] [place] [address] Mar, [facility] [place] [facility] [address] [id number], [place] [address] Mar, [facility] [place] [facility] [address] [id number], [place] [address] Mar, [facility] [place] [facility] [address] [id number], [place] [address] Mar, [facility] [place] [facility] [address] [id number], [place] [address] Mar, [facility] [place] [facility] [address] [id number], [place] [address] Feb, [facility] [place] [facility] [address] [id number] [place] [address] Feb, [facility] [place] [facility] [address] [facility] [id number], [place] [address] Dec, [facility] [place] [facility] [address] [id number] [place] [address] Apr, [facility] [place] [facility] [address] [id number] [place] [address] 07 Apr, 2010 [facility] [address] [id number] [place] [address] 03 Apr, 2010 [facility] [address] [id number] [place] [address]46 29 Feb, 2010 [facility] [address] [id number] [place] [address] 11 Feb, 2010 [facility] [address] [id number] [place] [address] 2540 11 Jul, 2009 [facility] [address] [id number] [place] [address] 15 Jun, 2009 [facility] [address] [facility] [id number] [place] [address] 15 May, 2009 [facility] [address] [id number] [place] [address] Apr, [facility] [address] [id number] [place] [address] Apr, [facility] [address] [facility] [id number] [place] [address] Apr, [facility] [address] [facility] [id number] [place] [address] 25 Mar, 2009 [facility] [address] [id number] [place] [address] Jul, [facility] [address] [id number], [place] [address] 16 Jun, 2008 [facility] [address] [id number] [place] [address] 15 Jan, 2008 [facility] [place] [facility] [address] [id number] [place] [address] 10 Oct, 2007 [facility] [address] [id number] [place] [address] 13 Sep, 2007 [facility] [place] [address] [facility] [id number], [place] [address] Nov, [facility] [place] [address] [id number] [address] September, [facility] [place] [address] [id number] [address] Dec, [facility] [place] [address] [id number] [address] Mar, IMMUNIZATIONS No Known Immunizations SOCIAL HISTORY Never Assessed REASON FOR VISIT Medication question PLAN OF CARE VITAL SIGNS MEDICATIONS No Known Medications RESULTS No Results PROCEDURES No Known [...]
--- OUTSIDE RECORDS SUMMARY | 2018-07-08 18:37 | XMS REPORT ---
Author Author ROBERTO FIGUEROA e[employer] Address Unknown Phone Unavailable Care Team Providers Care Ecommerce Manager Name Role Phone ROBERTO FIGUEROA CP Unavailable Allergies, Adverse Reactions, Alerts Substance Reaction Event Type Zoloft Info Not Available Drug Allergy Prednisone irritable Drug Allergy Vancomycin documented reaction to IV antibiotics during hospitalization. Drug Allergy Problems Problem Type Condition ICD-9 Code Onset Dates Condition Status Problem Esophageal reflux 530.81 Active Problem Suicide and self-inflicted injury by cutting and piercing instrument E956 Active Problem Depo-Provera contraceptive status V25.49 Active Assessment Depression 311 Active Assessment Anxiety 300.00 Active Problem Herpes simplex without mention of complication 054.9 Active Assessment Esophageal reflux 530.81 Active Medications Medication Code System Code Instructions Start Date End Date Status Dosage Omeprazole [facility] [address]-69 40 MG Orally Once a day Jan 21, 2015 1 capsule Excedrin PM [facility] [address]-54 500-38 MG Orally Once a day 1 tablet at bedtime as needed Depo-Provera [facility] [address]-57 150 MG/ML Intramuscular Jan 14, 2015 Jun 13, 2015 1 ml Sertraline HCl [facility] [address]-90 50 MG Orally Once a day Jan 21, 2015 1 tablet Procedures Procedure Coding System Code Date IMMUNOASSAY,INFECTIOUS AGENT CPT-4 32350 Jan 21, 2015 Office Visit, Est Pt., Level 3 CPT-4 75260 Jan 21, 2015 COMPLETE CBC W/AUTO DIFF WBC CPT-4 91437 Jan 21, 2015 Vital Signs Date/Time: Jan 21, 2015 Temperature 97.5 F Weight 114.9 lbs Height 59 in BMI 23.20 Index Blood Pressure Diastolic 72 mmHg Blood Pressure Systolic 116 mmHg Cardiac Monitoring Heart Rate 88 bpm BMIPercentile 69.44 % Wt Percentile 29.24 % Results Name Result Date Reference Range Unit Abnormality Flag H PYLORI (IN HOUSE) Summary Purpose eClinicalWorks Submission
--- OUTSIDE RECORDS SUMMARY | 2018-07-08 18:38 | XMS REPORT ---
Author Author ROBERTO FIGUEROA Organization [facility] Address [address] [place] [address] Care Team Providers Care Stereo Operator Name Role Phone HENRYYADIRAROBERTO Unavailable PROBLEMS Type Condition ICD9-CM Code [id number] Code Onset Dates Condition Status SNOMED Code Problem Bipolar disorder, unspecified F31.9 Active [id number] ALLERGIES No Information ENCOUNTERS Encounter Location Date Diagnosis [place] [id number] [place] [address] 79648- 5007 September, History of fainting spells of unknown cause Z91.89 [place] [address] 99156- 9926 Aug, Yeast infection involving the vagina and surrounding area B37.3 ; Bipolar disorder, unspecified F31.9 and Trichomonas vaginalis infection A59.9 [place] [address] 37721- 1841 Jun, Bipolar disorder, unspecified F31.9 [place] [address] [place] [id number] [place] [address] 08615- 7683 Jun, Encounter for surveillance of injectable contraceptive Z30.42 and Bipolar disorder, unspecified F31.9 [place] [address] [place] [id number] [place] [address] 61637- 8467 May, Encounter for Depo-Provera contraception Z30.42 [facility] [id number] [place] [address] 39966 -1155 Apr, Syncope, unspecified syncope type R55 [place] [address] [address] [id number] [place] [address] 60811- 2049 Mar, Bipolar disorder, unspecified F31.9 and High risk medication use Z79.899 [facility] [id number] [place] [address] 98772- 7297 Feb, [facility] [id number] [place] [address] 61096- 1941 Feb, Encounter for Depo-Provera contraception Z30.42 [facility] [address] 11511- 6048 Nov, Encounter for Depo-Provera contraception Z30.42 [place] [address] [id number] [place] [address] 28432- 1781 September, [facility] [address] 16890- 3941 Aug, [facility] [address] 00218- 9450 Aug, Late period N92.6 ; STD exposure Z20.2 ; control counseling Z30.09 and Encounter for Depo-Provera contraception Z30.42 [facility] [id number] [place] [address] 30757 -8049 Jul, Body aches R52 ; Influenza A J10.1 ; Impacted cerumen of left ear H61.22 and Acute serous otitis media of left ear, recurrence not specified H65.02 [facility] [id number] [place] [address] 96620- 6186 May, [facility] [id number] [place] [address] 70307- 3882 Apr, Encounter for female control Z30.019 ; Encounter for Depo-Provera contraception Z30.42 and Well woman exam Z01.419 [facility] [id number] [place] [address] [id number] Feb, Dental examination Z01.20 [facility] [id number] [place] [address] [id number] Feb, Dental caries K02.9 [facility] [address] [id number] [id number] Feb, Dental examination Z01.20 [facility] [id number] [place] [address] 56459 -8280 Dec, Bilateral impacted cerumen H61.23 ; Dizziness R42 and Nausea R11.0 [facility] [address] 83280- 2142 Dec, Encounter for Depo-Provera contraception Z30.42 [place] [address] [address] [id number] [place] [address] 52278- 0405 Oct, Bipolar affective disorder, currently depressed, moderate F31.32 [place] [address] [id number] [place] [address] 06748- 5300 September, Bipolar disorder, unspecified F31.9 [place] [address] [id number] [place] [address] 65472- 8568 September, Bipolar disorder, unspecified F31.9 [place] [address] [address] [id number] [place] [address] 62778- 7792 September, Bipolar disorder, unspecified F31.9 [place] [address] [address] [id number] [place] [address] 89753- 5293 September, Encounter for Depo-Provera contraception Z30.42 [facility] [id number] [place] [address] 33110- 5672 Aug, Bipolar disorder, unspecified F31.9 [place] [address] [id number] [place] [address] 57871- 9824 Jun, Encounter for Depo-Provera contraception Z30.42 [place] [address] [id number] [place] [address] 96475- 5925 Apr, URI (upper respiratory infection) J06.9 [facility] [id number] [place] [address] 69270- 6446 Mar, Encounter for Depo-Provera contraception Z30.42 [facility] [id number] [place] [address] 67739- 1907 Mar, [facility] [id number] [place] [address] 50372- 4794 Mar, Generalized anxiety disorder F41.1 and Major depressive disorder, recurrent episode, moderate F33.1 [facility] [id number] [place] [address] 59386- 2703 Jan, Esophageal reflux 530.81 ; Depression 311 and Anxiety 300.00 [facility] [id number] [place] [address] 72465- 2478 Dec, Depo-Provera contraceptive status V25.49 [facility] [id number] [place] [address] 98460- 1290 Dec, test negative V72.41 [facility] [id number] [place] [address] 84352- 2051 Oct, [facility] [id number] [place] [address] 27363- 6118 Oct, [facility] [id number] [place] [address] 38454- 8031 September, [facility] [id number] [place] [address] 46521- 6254 September, [facility] [id number] [place] [address] 35854- 5442 September, [facility] [id number] [place] [address] 44311- 2922 September, [facility] [id number] [place] [address] 25258- 6542 September, [facility] [id number] [place] [address] 75263- 7485 September, [facility] [id number] [place] [address] 25256- 2728 September, [facility] [address] [facility] [id number] [place] 7940 September, Other general counseling and advice for contraceptive management V25.09 [facility] [address] [id number] [place] [address]- 3166 September, [facility] [address] [id number] [place] [address]- 0564 September, [facility] [address] [id number] [place] [address]- 9255 September, [facility] [address] [id number] [place] [address]- 9463 September, [facility] [address] [facility] [id number] [place] [address]- 2379 29 Aug, 2014 [facility] [address] [facility] [id number] [place] [address]- 6169 28 Aug, 2014 [facility] [address] [id number] [place] [address]- 8318 14 Aug, 2014 [facility] [address] [id number] [place] [address]- 2107 13 Aug, 2014 [facility] [address] [facility] [id number] [place] [address]- 6245 27 Jul, 2014 [facility] [address] [id number] [place] [address]- 5349 27 Jul, 2014 [facility] [address] [id number] [place] [address]- 2900 20 Jul, 2014 [facility] [address] [id number] [place] [address]- 8158 19 Jul, 2014 [facility] [address] [id number] [place] [address]- 0776 19 Jul, 2014 [facility] [address] [facility] [id number] [place] [address]- 8985 Jul, 2014 [facility] [place] [facility] [address] [id number] [place] [address]- 6057 Jul, 2014 [facility] [place] [facility] [address] [id number] [place] [address]- 5227 Jun, 2014 [facility] [place] [facility] [address] [id number] [place] 6476 Jun, 2014 [facility] [place] [facility] [address] [id number] [place] [address]- 1600 Jun, 2014 [facility] [place] [facility] [address] [id number] [place] [address]- 9094 Jun, 2014 [facility] [place] [facility] [address] [id number] [place] [address]- 3907 Jun, 2014 [facility] [place] [facility] [address] [id number] [place] [address]- 9409 Jun, [facility] [place] [facility] [address] [id number] [place] [address]- 0781 May, [facility] [place] [facility] [address] [id number] [place] [address]- 8644 May, [facility] [place] [facility] [address] [facility] [id number] [place] [address]- 0903 Apr, [facility] [place] [facility] [address] [id number] [place] [address]- 8464 Apr, [facility] [place] [facility] [address] [id number] [place] [address]- 0958 Apr, [facility] [place] [facility] [address] [id number] [place] 5350 Apr, [facility] [place] [facility] [address] [id number] [place] [address]- 8849 Apr, [facility] [place] [facility] [address] [id number] [place] [address]- 9052 Apr, [facility] [place] [facility] [address] [id number] [place] [address]- 0181 Mar, [facility] [place] [facility] [address] [id number] [place] [address]- 4248 19 Mar, 2014 [facility] [place] [facility] [address] [id number] [place] [address]- 7344 Mar, [facility] [place] [facility] [address] [id number] [place] [address]- 6516 Mar, [facility] [place] [facility] [address] [id number] [place] [address]- 0222 Mar, [facility] [place] [facility] [address] [id number] [place] [address]- 6921 Feb, [facility] [place] [facility] [address] [id number] [place] [address]- 8008 Feb, [facility] [place] [facility] [address] [id number] [place] [address]- 9412 Feb, [facility] [place] [facility] [address] [id number] [place] [address]- 1381 Feb, [facility] [place] [facility] [address] [id number] [place] [address]- 6811 Feb, [facility] [place] [facility] [address] [id number] [place] [address]- 0169 16 Feb, 2014 [facility] [place] [facility] [address] [id number] [place] [address]- 1747 16 Feb, 2014 [facility] [place] [facility] [address] [id number] [place] [address]- 3590 16 Feb, 2014 [facility] [place] [facility] [address] [id number] [place] [address]- 8580 05 Jan, 2014 [facility] [place] [facility] [address] [id number] [place] [address]- 7235 05 Sep, 2013 [facility] [place] [facility] [address] [id number] [place] 7500 Jan, 2013 [facility] [place] [facility] [address] [id number] [place] [address]- 5270 05 Jan, 2013 [facility] [place] [facility] [address] [id number] [place] [address]- 9796 Jan, [facility] [place] [facility] [address] [id number] [place] [address]- 8906 Jan, 2013 [facility] [place] [facility] [address] [id number] [place] [address]- 3934 Jan, 2013 [facility] [place] [facility] [address] [id number] [place] [address]- 6095 Jan, [facility] [place] [facility] [address] [id number] [place] [address]- 8152 Dec, [facility] [place] [facility] [address] [id number] [place] [address]- 8712 Dec, [facility] [place] [facility] [address] [id number] [place] [address]- 8138 Dec, [facility] [place] [facility] [address] [id number] [place] [address]- 6203 Dec, [facility] [place] [facility] [address] [id number] [place] [address]- 0066 Dec, [facility] [place] [facility] [address] [id number] [place] [address]- 0653 Dec, [facility] [place] [facility] [address] [id number] [place] [address]- 4762 Dec, [facility] [place] [facility] [address] [id number] [place] [address]- 0733 Dec, [facility] [place] [facility] [address] [id number] [place] [address]- 4464 Dec, [facility] [place] [facility] [address] [id number] [place] [address]- 7409 Dec, [facility] [place] [facility] [address] [id number] [place] [address]- 2627 Dec, [facility] [place] [facility] [address] [id number] [place] [address]- 3560 Dec, [facility] [place] [facility] [address] [id number] [place] [address]- 3424 Dec, [facility] [place] [facility] [address] [id number] [place] [address]- 2938 Dec, [facility] [place] [facility] [address] [id number] [place] [address]- 1481 Dec, [facility] [place] [facility] [address] [id number] [place] [address]- 7332 Dec, [facility] [place] [facility] [address] [id number] [place] [address]- 0300 Dec, [facility] [place] [facility] [address] [id number] [place] [address]- 2502 Nov, [facility] [place] [facility] [address] [id number] [place] [address]- 5996 Nov, [facility] [place] [facility] [address] [id number] [place] [address]- 4723 Nov, [facility] [place] [facility] [address] [id number] [place] [address]- 1334 Nov, [facility] [place] [facility] [address] [id number] [place] [address]- 0528 Nov, [facility] [place] [facility] [address] [id number] [place] [address]- 1541 Nov, [facility] [place] [facility] [address] [id number] [place] [address]- 4318 Nov, [facility] [place] [facility] [address] [id number] [place] [address]- 1433 Nov, [facility] [place] [facility] [address] [id number] [place] [address]- 9147 Nov, [facility] [place] [facility] [address] [id number] [place] [address]- 2280 Oct, [facility] [place] [facility] [address] [id number] [place] [address]- 7257 Oct, [facility] [place] [facility] [address] [id number] [place] [address]- 7845 Oct, [facility] [place] [facility] [address] [id number] [place] [address]- 7678 Oct, [facility] [place] [facility] [address] [id number] [place] [address]- 9429 Oct, [facility] [place] [facility] [address] [id number] [place] [address]- 9430 Oct, [facility] [place] [facility] [address] [id number] [place] [address]- 9068 Oct, [facility] [place] [facility] [address] [id number] [place] [address]- 6569 Oct, [facility] [place] [facility] [address] [id number] [place] [address]- 4092 Oct, [facility] [place] [facility] [address] [id number] [place] [address]- 8585 Oct, [facility] [place] [facility] [address] [id number] [place] [address]- 0467 September, [facility] [place] [facility] [address] [id number] [place] [address]- 4613 September, [facility] [place] [facility] [address] [id number] [place] [address]- 0534 September, [facility] [place] [facility] [address] [id number] [place] [address]- 0294 September, [facility] [place] [facility] [address] [id number] [place] [address]- 7603 Aug, [facility] [place] [facility] [address] [id number] [place] [address]- 6302 Aug, [facility] [place] [facility] [address] [id number] [place] [address]- 3469 Aug, [facility] [place] [facility] [address] [id number] [place] [address]- 4320 Aug, [facility] [place] [facility] [address] [id number] [place] [address]- 1577 Aug, [facility] [place] [facility] [address] [id number] [place] [address]- 7949 Aug, [facility] [place] [facility] [address] [id number] [place] [address]- 2361 Aug, [facility] [place] [facility] [address] [id number] [place] [address]- 0827 Aug, [facility] [place] [facility] [address] [id number] [place] [address]- 0259 Aug, [facility] [place] [facility] [address] [id number] [place] [address]- 2759 Aug, [facility] [place] [facility] [address] [id number] [place] [address]- 2701 Aug, [facility] [place] [facility] [address] [id number] [place] [address]- 0119 24 Jul, 2013 [facility] [place] [facility] [address] [id number] [place] [address]- 4855 Jul, [facility] [place] [facility] [address] [id number] [place] [address]- 9673 Jul, [facility] [place] [facility] [address] [id number] [place] [address]- 7425 Jul, [facility] [place] [facility] [address] [id number] [place] [address]- 5240 Jul, [facility] [place] [facility] [address] [id number] [place] [address]- 3686 Jul, [facility] [place] [facility] [address] [facility] [id number] [place] [address]- 2012 Jun, [facility] [place] [facility] [address] [id number] [place] [address] 2546 Jun, [facility] [place] [facility] [address] [id number] [place] [address] 2546 Jun, [facility] [place] [facility] [address] [facility] [id number] [place] [address]- 7897 Jun, 2013 [facility] [place] [facility] [address] [id number] [place] [address]- 7071 Jun, [facility] [place] [facility] [address] [id number] [place] [address]- 9684 Jun, [facility] [place] [facility] [address] [facility] [id number] [place] [address]- 4838 Jun, [facility] [place] [facility] [address] [id number] [place] [address]- 4886 Jun, [facility] [place] [facility] [address] [facility] [id number] [place] [address]- 5957 Jun, [facility] [place] [facility] [address] [facility] [id number] [place] [address]- 1150 Jun, [facility] [place] [facility] [address] [facility] [id number] [place] [address]- 8982 Jun, [facility] [place] [facility] [address] [facility] [id number] [address]- 2544 Jun, [facility] [place] [facility] [address] [facility] [id number] [place] [address]- 0104 Jun, [facility] [place] [facility] [address] [facility] [id number] [place] [address]- 1535 Jun, [facility] [place] [facility] [address] [facility] [id number] [place] [address]- 2548 06 Jun, 2013 [facility] [place] [facility] [address] [facility] [id number], [place] [address]- 2005 Jun, [facility] [place] [facility] [address] [id number] [place] [address]- 3796 Jun, [facility] [place] [facility] [address] [id number] [place] 9626 Jun, [facility] [place] [facility] [address] [id number] [place] [address]- 6496 Jun, [facility] [place] [facility] [address] [id number] [place] [address]- 2467 Jun, [facility] [place] [facility] [address] [id number] [place] [address]- 2365 Jun, [facility] [place] [facility] [address] [id number] [place] [address]- 5973 Jun, [facility] [place] [facility] [address] [id number] [place] [address]- 1548 May, [facility] [place] [facility] [address] [id number] [place] [address]- 6035 May, [facility] [place] [facility] [address] [id number] [place] [address]- 0711 May, [facility] [place] [facility] [address] [id number] [place] [address]- 7461 May, [facility] [place] [facility] [address] [id number] [place] [address]- 5744 May, [facility] [place] [facility] [address] [id number] [place] [address]- 0444 May, [facility] [place] [facility] [address] [id number] [place] [address]- 2730 May, [facility] [place] [facility] [address] [id number] [place] [address]- 0136 May, [facility] [place] [facility] [address] [id number] [place] [address]- 2473 May, [facility] [address] [id number] [place] [address]- 9930 15 May, 2013 [facility] [place] [facility] [address] [id number] [place] [address]- 5203 May, [facility] [place] [facility] [address] [id number] [place] [address]- 9957 May, [facility] [place] [facility] [address] [id number] [place] [address]- 1336 May, [facility] [place] [facility] [address] [id number] [place] [address]- 5235 May, [facility] [place] [facility] [address] [id number] [place] [address]- 7685 Apr, [facility] [place] [facility] [address] [id number] [place] [address] Apr, [facility] [place] [facility] [address] [id number] [place] [address] Apr, [facility] [place] [facility] [address] [id number] [place] [address] Apr, [facility] [place] [facility] [address] [id number] [place] [address] Apr, [facility] [place] [facility] [address] [id number], [place] [address] Apr, [facility] [place] [facility] [address] [id number], [place] [address] Apr, [facility] [place] [facility] [address] [id number] [place] [address] Apr, [facility] [place] [facility] [address] [id number] [place] [address] Mar, [facility] [place] [facility] [address] [id number], [place] [address] Mar, [facility] [place] [facility] [address] [id number], [place] [address] Mar, [facility] [place] [facility] [address] [id number] [place] [address] Mar, [facility] [place] [facility] [address] [id number], [place] [address] Feb, [facility] [place] [facility] [address] [facility] [id number] [place] [address] Feb, [facility] [place] [facility] [address] [id number], [place] [address] Feb, [facility] [place] [facility] [address] [id number] [place] [address] Feb, [facility] [place] [facility] [address] [facility] [id number] [place] [address] Feb, [facility] [place] [facility] [address] [id number], [place] [address] Feb, [facility] [place] [facility] [address] [facility] [id number] [place] [address] Feb, [facility] [place] [facility] [address] [facility] [id number], [place] [address] Feb, [facility] [place] [facility] [address] [facility] [id number], [place] [address] Jan, [facility] [place] [facility] [address] [facility] [id number], [place] [address] Oct, [facility] [place] [facility] [address] [facility] [id number], [place] [address] September, [facility] [place] [facility] [address] [facility] [id number], [place] [address] Jun, [facility] [place] [facility] [address] [facility] [id number], [place] [address] Jun, [facility] [place] [facility] [address] [facility] [id number], [place] [address] Jun, [facility] [place] [facility] [address] [id number] [place] [address] Jun, [facility] [place] [facility] [address] [id number] [place] [address] May, [facility] [place] [facility] [address] [id number] [place] [address] Apr, [facility] [place] [facility] [address] [id number] [place] [address] Apr, [facility] [place] [facility] [address] [id number] [place] [address]- [address] Apr, [facility] [place] [facility] [address] [id number] [place] [address] Apr, [facility] [place] [facility] [address] [id number] [place] [address] Mar, [facility] [place] [facility] [address] [id number] [place] [address] Mar, [facility] [place] [facility] [address] [id number] [place] [address] Jan, [facility] [place] [facility] [address] [id number] [place] [address] Dec, [facility] [place] [facility] [address] [id number] [place] [address] Dec, [facility] [place] [facility] [address] [id number] [place] [address] Dec, [facility] [place] [facility] [address] [id number] [place] [address] Dec, [facility] [place] [facility] [address] [id number] [place] [address] Nov, [facility] [place] [facility] [address] [id number] [place] [address] Nov, [facility] [place] [facility] [address] [id number] [place] [address] Nov, [facility] [address] [id number] [place] [address] Nov, [facility] [place] [facility] [address] [id number] [place] [address] Aug, [facility] [place] [facility] [address] [facility] [id number] [place] [address] Aug, [facility] [place] [facility] [address] [id number] [place] [address]- [address] Jul, [facility] [place] [facility] [address] [id number] [place] [address] Jul, [facility] [place] [facility] [address] [facility] [id number] [place] [address]- [address] Jul, [facility] [address] [facility] [id number] [place] [address]- [address] Jul, [facility] [place] [facility] [address] [id number] [place] [address]- [address] Jun, [facility] [place] [facility] [address] [id number] [place] [address] Jun, [facility] [place] [facility] [address] [facility] [id number] [place] [address]- [address] 14 Jun, 2011 [facility] [place] [facility] [address] [facility] [id number] [place] [address] Jun, [facility] [place] [facility] [address] [facility] [id number] [place] [address] Jun, [facility] [place] [facility] [address] [id number] [place] [address] 08 Jun, 2011 [facility] [place] [facility] [address] [facility] [id number] [place] [address] 04 Jun, 2011 [facility] [place] [facility] [address] [facility] [id number] [place] [address] 02 Jun, 2011 [facility] [place] [facility] [address] [id number] [place] [address] Jun, [facility] [place] [facility] [address] [id number] [place] [address] May, [facility] [place] [facility] [address] [id number] [place] [address] May, [facility] [place] [facility] [id number] [place] [address], [place] [address] May, [facility] [place] [facility] [address] [id number] [place] [address] May, [facility] [place] [facility] [address] [id number] [place] [address] May, [facility] [place] [facility] [address] [id number] [place] [address] Mar, [facility] [place] [facility] [address] [id number] [place] [address] Mar, [facility] [place] [facility] [address] [id number] [place] [address] Mar, [facility] [place] [facility] [address] [id number] [place] [address] Mar, [facility] [place] [facility] [address] [id number] [place] [address] Mar, [facility] [place] [facility] [address] [id number] [place] [address] Feb, [facility] [place] [facility] [address] [id number] [place] [address] Feb, [facility] [place] [facility] [address] [id number] [place] [address] Dec, [facility] [place] [facility] [address] [id number] [place] [address] Apr, [facility] [place] [facility] [address] [id number], [place] [address] 07 Apr, 2010 [facility] [address] [id number] [place] [address] Apr, [facility] [place] [facility] [address] [id number] [place] [address] 29 Feb, 2010 [facility] [place] [facility] [address] [id number] [place] [address] 11 Feb, 2010 [facility] [place] [facility] [address] [id number], [place] [address] Jul, [facility] [place] [facility] [address] [id number] [place] [address] 15 Jun, 2009 [facility] [place] [facility] [address] [id number] [place] [address] 15 May, 2009 [facility] [place] [facility] [address] [id number], [place] [address] Apr, [facility] [place] [facility] [address] [id number], [place] [address] Apr, [facility] [place] [facility] [address] [id number], [place] [address] Apr, [facility] [place] [facility] [address] [id number] [place] [address] Mar, [facility] [place] [facility] [address] [id number], [place] [address] Jul, [facility] [place] [facility] [address] [id number], [place] [address] 16 Jun, 2008 [facility] [place] [facility] [address] [id number], [place] [address] 15 Jan, 2008 [facility] [place] [facility] [address] [id number], [place] [address] 10 Oct, 2007 [facility] [place] [facility] [address] [id number] [place] [address] September, [facility] [place] [facility] [address] [facility] [id number] [place] [address] 11 Nov, 2006 [facility] [address] [facility] [id number], [place] [address] September, [facility] [address] [id number], [place] [address] Dec, [facility] [address] [facility] [id number], [place] [address] Mar, IMMUNIZATIONS No Known Immunizations SOCIAL HISTORY Never Assessed REASON FOR VISIT Depo Provera injection-JESSE Shepherd PLAN OF CARE VITAL SIGNS MEDICATIONS No Known Medications RESULTS Name Result Date Reference Range TEST, URINE (IN HOUSE) 2017-06-09 RESULTS negative Lot # [id number] Control + Exp date 09/2018 PROCEDURES Procedure Date Ordered Result Body Site URINE TEST Jun 09, 2017 INSTRUCTIONS MEDICATIONS ADMINISTERED No Known Medications [...]
--- OUTSIDE RECORDS SUMMARY | 2018-07-08 18:38 | XMS REPORT ---
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 [address]-82 6.25-10 MG/5ML Orally every 6 hrs Apr 24, 2015 1-2 tsp Depo-Provera [facility] [address]-42 150 MG/ML Intramuscular Jan 14, 2015 Jun 13, 2015 1 ml Procedures Procedure Coding System Code Date Office Visit, Est Pt., Level 2 CPT-4 80605 Apr 24, 2015 Vital Signs Date/Time: Apr 24, 2015 Temperature 97.0 F Weight 113.1 lbs Height 59 in BMI 22.84 Index Blood Pressure Diastolic 60 mmHg Blood Pressure Systolic 100 mmHg Cardiac Monitoring Heart Rate 84 bpm BMIPercentile 65.5 % Wt Percentile 24.36 % Results No Known Results Summary Purpose eClinicalWorks Submission
--- OUTSIDE RECORDS SUMMARY | 2018-07-08 18:38 | XMS REPORT ---
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 Drug Allergy Jul, Active SOCIAL HISTORY Never Assessed PLAN OF CARE Activity Details Follow Up prn Reason: VITAL SIGNS Height 59 in 2016-07-23 Weight 123.2 lbs 2016-07-23 Temperature 97.8 degrees Fahrenheit 2016-07-23 Heart Rate 92 bpm 2016-07-23 Respiratory Rate 18 2016-07-23 BMI 24.88 kg/m2 2016-07-23 Blood pressure systolic 112 mmHg 2016-07-23 Blood pressure diastolic 70 mmHg 2016-07-23 MEDICATIONS Medication Instructions Dosage Frequency Start Date End Date Duration Status ProAir HFA 108 (90 Base) MCG/ACT Inhalation every 4-6 hours 2 puffs as needed Jul, Active Depo-Provera 150 MG/ML 1 ml Active Amoxicillin 500 mg Orally every 12 hrs 2 capsule 12h Jul, Jul, 10 day(s) Active RESULTS Name Result Date Reference Range INFLUENZA A & B (IN HOUSE) 2016-07-23 INFLUENZA A positive INFLUENZA B negative Control + Lot # [id number] Exp date 2018 04 08 PROCEDURES Procedure Date Ordered Result Body Site CERUMEN REMOVAL 2016-07-23 N/A INFLUENZA ASSAY W/OPTIC July 23, 2016 EAR IRRIGATION July 23, 2016 IMMUNIZATIONS No Known Immunizations MEDICAL (GENERAL) HISTORY Type Description Date Medical History depression Medical History anxiety disorder Medical History Major depressive disorder, recurrent episode, moderate Surgical History tonsillectomy age 3 Hospitalization History cellulitis of lip 06/2014
--- OUTSIDE RECORDS SUMMARY | 2018-07-08 18:39 | XMS REPORT ---
Author Author ROBERTO FIGUEROA [facility] eClinicalWorks Address Unknown Phone Unavailable Care Team Providers Care Housekeeper Name Role Phone ROBERTO FIGUEROA Unavailable Allergies No Known Allergies Problems Problem Type Condition Code Onset Dates Condition Status Problem Suicide and self-inflicted injury by cutting and piercing instrument E956 Active Problem Herpes simplex without mention of complication 054.9 Active Problem Bipolar disorder, unspecified F31.9 Active Problem Esophageal reflux K21.9 Active Assessment Encounter for Depo-Provera contraception Z30.42 Active Medications No Known Medications Procedures Procedure Coding System Code Date DEPO PROVERA (150 MG/ML) CPT-4 J1050 Dec 21, 2015 THER/PROPH/DIAG INJ, SC/IM CPT-4 49130 Dec 21, 2015 URINE TEST CPT-4 10337 Dec 21, 2015 Results No Known Results Summary Purpose eClinicalWorks Submission
--- OUTSIDE RECORDS SUMMARY | 2018-07-08 18:39 | XMS REPORT ---
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 Drug Allergy Mar, Active ENCOUNTERS Encounter Location Date Diagnosis [address] [address] September, History of fainting spells of unknown cause Z91.89 [facility] [address] [place] [id number] [place] [address] 16238- 9478 Aug, Yeast infection involving the vagina and surrounding area B37.3 ; Bipolar disorder, unspecified F31.9 and Trichomonas vaginalis infection A59.9 [facility] [address] [place] [id number] [place] [address] 8[address]41- 1627 Jun, Bipolar disorder, unspecified F31.9 [facility] [id number] [place] [address] 32464- 1784 Jun, Encounter for surveillance of injectable contraceptive Z30.42 and Bipolar disorder, unspecified F31.[address] [address]- [address] May, Encounter for Depo-Provera contraception Z30.42 [facility] [id number] [place] [address]605 -8409 Apr, Syncope, unspecified syncope type R55 [facility] [id number] [place] [address] 64975- 4661 Mar, Bipolar disorder, unspecified F31.9 and High risk medication use Z79.899 [place] [id number] [place] [address] 20423- 3815 Feb, [facility] [address] [address]- [address]383 Feb, Encounter for Depo-Provera contraception Z30.42 [facility] [address] [address]- 2820 Nov, Encounter for Depo-Provera contraception Z30.42 [facility] [address] [address]2221- [address] September, [facility] [address] 90750- [address]40 Aug, [facility] [address] 66238- 1049 Aug, Late period N92.6 ; STD exposure Z20.2 ; control counseling Z30.09 and Encounter for Depo-Provera contraception Z30.42 [facility] [id number] [place] [address]75 -7266 Jul, Body aches R52 ; Influenza A J10.1 ; Impacted cerumen of left ear H61.22 and Acute serous otitis media of left ear, recurrence not specified H65.02 [facility] [id number] [place] [address] 62786- 5778 May, [facility] [address] [address]96- 8222 Apr, Encounter for female control Z30.019 ; Encounter for Depo-Provera contraception Z30.42 and Well woman exam Z01.419 [facility] [address] [id number] Feb, Dental examination Z01.20 [facility] [id number] [place] [address] [id number] Feb, 2016 Dental caries K02.9 [facility] [id number] [place] [address] [id number] 05 Feb, 2016 Dental examination Z01.20 [facility] [id number] [place] [address] 05781 -4798 Dec, Bilateral impacted cerumen H61.23 ; Dizziness R42 and Nausea R11.0 [facility] [address] 46594- 9598 Dec, Encounter for Depo-Provera contraception Z30.42 [facility] [address] 51972- 3342 Oct, Bipolar affective disorder, currently depressed, moderate F31.32 [facility] [address] 53474- 4248 September, Bipolar disorder, unspecified F31.9 [facility] [id number] [place] [address] 40458- 7331 September, Bipolar disorder, unspecified F31.9 [facility] [id number] [place] [address] 28136- 1852 September, Bipolar disorder, unspecified F31.9 [facility] [id number] [place] [address] 03532- 5099 September, Encounter for Depo-Provera contraception Z30.42 [facility] [id number] [place] [address] 70827- 6412 Aug, Bipolar disorder, unspecified F31.9 [facility] [address] [address]- 1992 Jun, Encounter for Depo-Provera contraception Z30.42 [facility] [address] 64407- 8014 Apr, URI (upper respiratory infection) J06.9 [facility] [address] [id number] [address] 1508 Mar, Encounter for Depo-Provera contraception Z30.42 [facility] [id number] [place] [address] 55238- 2048 Mar, [facility] [id number] [place] [address] 82340- 8344 Mar, Generalized anxiety disorder F41.1 and Major depressive disorder, recurrent episode, moderate F33.1 [facility] [id number] [place] [address] 16420- 3853 Jan, Esophageal reflux 530.81 ; Depression 311 and Anxiety 300.00 [facility] [id number] [place] [address] 24950- 2008 Dec, Depo-Provera contraceptive status V25.49 [facility] [id number] [place] [address] 19170- 8448 Dec, test negative V72.41 [facility] [id number] [place] [address] 25275- 5769 Oct, [facility] [id number] [place] [address] 72902- 0771 Oct, [facility] [id number] [place] [address] 15252- 1919 September, [facility] [id number] [place] [address] 01837- 2794 September, [facility] [id number] [place] [address] 42875- 7586 September, [facility] [id number] [place] [address] 84662- 8569 September, [facility] [id number] [place] [address] 66142- 9538 September, [facility] [address] [address]- 1874 September, [facility] [place] [address] [id number] [address]- 5404 September, [facility] [place] [address] [id number] [address]- 8005 September, Other general counseling and advice for contraceptive management V25.09 [facility] [place] [address] [id number] [place] [address]- 5592 September, [facility] [place] [address] [id number] [place] [address]- 1304 September, [facility] [place] [address] [id number] [address]- 3461 September, [facility] [place] [address] [facility] [id number] [address]- 2797 September, [facility] [place] [address] [facility] [id number] [address]- 6142 29 Aug, 2014 [facility] [place] [address] [id number] [place] [address]- 7694 28 Aug, 2014 [facility] [place] [address] [facility] [id number] [place] [address]- 7820 14 Aug, 2014 [facility] [place] [address] [id number] [address]- 8035 Aug, [facility] [place] [address] [id number] [place] [address]- 7154 Jul, [facility] [address] [id number] [address]- 9128 Jul, [facility] [place] [address] [id number] [place] [address]- 7828 20 Jul, 2014 [facility] [address] [id number] [address]- 7537 Jul, [facility] [place] [address] [id number] [address]- 5753 Jul, [facility] [place] [facility] [address] [id number] [place] [address]- 3334 Jul, [facility] [place] [facility] [address] [id number] [place] 4773 Jul, 2014 [facility] [place] [facility] [address] [id number] [place] [address]- 4156 Jun, 2014 [facility] [place] [facility] [address] [id number] [place] [address]- 5561 Jun, 2014 [facility] [place] [facility] [address] [id number] [place] [address]- 7333 Jun, 2014 [facility] [place] [facility] [address] [facility] [id number] [place] [address]- 9804 Jun, 2014 [facility] [place] [facility] [address] [facility] [id number] [place] [address]- 1336 Jun, [facility] [place] [facility] [address] [facility] [id number] [place] [address]- 5689 Jun, [facility] [place] [facility] [address] [facility] [id number] [place] [address]- 1283 May, [facility] [place] [facility] [address] [facility] [id number] [place] [address]- 4067 May, [facility] [place] [facility] [address] [id number] [place] [address]- 4526 Apr, [facility] [place] [facility] [address] [id number] [place] [address]- 0194 Apr, [facility] [place] [facility] [address] [id number] [place] [address]- 5452 Apr, [facility] [place] [facility] [address] [facility] [id number] [place] [address]- 8949 Apr, [facility] [place] [facility] [address] [facility] [id number] [place] [address]- 6809 Apr, [facility] [place] [facility] [address] [id number] [place] 9366 Apr, [facility] [place] [facility] [address] [id number] [place] [address]- 9194 Mar, [facility] [place] [facility] [address] [id number] [place] 6661 Mar, [facility] [place] [facility] [address] [id number] [place] [address]- 5488 Mar, [facility] [place] [facility] [address] [id number] [place] [address]- 5075 Mar, [facility] [place] [facility] [address] [id number] [place] [address]- 9848 Mar, [facility] [place] [facility] [address] [id number] [place] [address]- 8277 Feb, [facility] [place] [facility] [address] [id number] [place] [address]- 9046 Feb, [facility] [place] [facility] [address] [id number] [place] [address]- 0099 Feb, [facility] [place] [facility] [address] [id number] [place] [address]- 4002 Feb, [facility] [place] [facility] [address] [id number] [place] [address]- 0852 Feb, [facility] [place] [facility] [address] [id number] [address]- 3695 Feb, [facility] [place] [facility] [address] [id number] [place] [address]- 6405 Feb, [facility] [place] [facility] [address] [id number] [place] 7570 Feb, [facility] [place] [facility] [address] [id number] [place] [address]- 4799 05 Jan, 2014 [facility] [place] [facility] [address] [id number] [place] [address]- 5098 Jan, 2013 [facility] [place] [facility] [address] [id number] [place] [address]- 8862 Jan, 2013 [facility] [place] [facility] [address] [id number] [place] [address]- 4746 Jan, 2013 [facility] [place] [facility] [address] [id number] [place] [address]- 6717 Jan, 2013 [facility] [place] [facility] [address] [id number] [place] [address]- 9208 Jan, 2013 [facility] [place] [facility] [address] [id number] [place] [address]- 3534 Jan, 2013 [facility] [place] [facility] [address] [id number] [place] [address]- 5095 Jan, 2013 [facility] [place] [facility] [address] [id number] [place] [address]- 2290 Dec, [facility] [place] [facility] [address] [id number] [place] [address]- 8222 Dec, [facility] [place] [facility] [address] [id number] [place] [address]- 8204 Dec, [facility] [place] [facility] [address] [id number] [place] [address]- 1355 Dec, [facility] [place] [facility] [address] [id number] [place] [address]- 9838 Dec, [facility] [place] [facility] [address] [id number] [place] [address]- 4574 Dec, [facility] [place] [facility] [address] [id number] [place] [address]- 5628 Dec, [facility] [place] [facility] [address] [id number] [place] [address]- 7723 Dec, [facility] [place] [facility] [address] [id number] [place] [address]- 6242 Dec, [facility] [place] [facility] [address] [id number] [place] [address]- 1782 Dec, [facility] [place] [facility] [address] [id number] [place] [address]- 4969 Dec, [facility] [place] [facility] [address] [id number] [place] [address]- 0629 Dec, [facility] [place] [facility] [address] [id number] [place] [address]- 3066 Dec, [facility] [place] [facility] [address] [id number] [place] [address]- 4673 Dec, [facility] [place] [facility] [address] [id number] [place] [address]- 3105 Dec, [facility] [place] [facility] [address] [id number] [place] [address]- 3751 Dec, [facility] [place] [facility] [address] [id number] [place] [address]- 6634 Dec, [facility] [place] [facility] [address] [id number] [place] [address]- 5777 Nov, [facility] [place] [facility] [address] [id number] [place] [address]- 3182 Nov, [facility] [place] [facility] [address] [id number] [place] [address]- 2425 Nov, [facility] [place] [facility] [address] [id number] [place] [address]- 5358 Nov, [facility] [place] [facility] [address] [id number] [place] [address]- 2727 Nov, [facility] [place] [facility] [address] [id number] [place] [address]- 2599 Nov, [facility] [place] [facility] [address] [id number] [place] 3985 Nov, [facility] [place] [facility] [address] [id number] [place] [address]- 7202 Nov, [facility] [place] [facility] [address] [id number] [place] [address]- 3553 Nov, [facility] [place] [facility] [address] [id number] [place] [address]- 9801 Oct, [facility] [place] [facility] [address] [id number] [place] [address]- 4962 Oct, [facility] [place] [facility] [address] [id number] [place] [address]- 4264 Oct, [facility] [place] [facility] [address] [id number] [place] [address]- 1751 Oct, [facility] [place] [facility] [address] [id number] [place] [address]- 8291 Oct, [facility] [place] [facility] [address] [id number] [place] [address]- 3081 Oct, [facility] [place] [facility] [address] [id number] [place] [address]- 2814 Oct, [facility] [place] [facility] [address] [id number] [place] [address]- 0267 Oct, [facility] [place] [facility] [address] [id number] [place] [address]- 3603 Oct, [facility] [place] [facility] [address] [id number] [place] [address]- 6998 Oct, [facility] [place] [facility] [address] [id number] [place] [address]- 6643 September, [facility] [place] [facility] [address] [id number] [place] [address]- 4259 September, [facility] [place] [facility] [address] [id number] [place] [address]- 8993 September, [facility] [place] [facility] [address] [id number] [place] [address]- 2086 September, [facility] [place] [facility] [address] [id number] [place] [address]- 8207 29 Aug, 2013 [facility] [place] [facility] [address] [id number] [place] [address]- 1249 Aug, [facility] [place] [facility] [address] [id number] [place] [address]- 5208 Aug, [facility] [place] [facility] [address] [id number] [place] [address]- 9898 Aug, [facility] [place] [facility] [address] [id number] [place] [address]- 2876 Aug, [facility] [place] [facility] [address] [id number] [place] [address]- 6425 Aug, [facility] [place] [facility] [address] [id number] [place] [address]- 6225 Aug, [facility] [place] [facility] [address] [id number] [place] [address]- 4420 Aug, [facility] [place] [facility] [address] [id number] [place] [address]- 4628 Aug, [facility] [place] [facility] [address] [id number] [place] [address]- 5567 Aug, [facility] [place] [facility] [address] [id number] [place] [address]- 3407 Aug, [facility] [place] [facility] [address] [id number] [place] [address]- 6556 24 Jul, 2013 [facility] [place] [facility] [address] [id number] [place] [address]- 9997 24 Jul, 2013 [facility] [place] [facility] [address] [id number] [place] [address]- 4496 10 Jul, 2013 [facility] [place] [facility] [address] [id number] [place] [address]- 5747 10 Jul, 2013 [facility] [place] [facility] [address] [id number] [place] [address]- 7304 06 Jul, 2013 [facility] [place] [facility] [address] [id number] [place] [address]- 0287 Jul, [facility] [place] [facility] [address] [id number] [place] [address]- 4126 Jun, [facility] [place] [facility] [address] [id number] [place] [address]- 8806 Jun, [facility] [place] [facility] [address] [id number] [place] [address]- 6473 Jun, [facility] [place] [facility] [address] [id number] [place] [address]- 3715 Jun, [facility] [place] [facility] [address] [id number] [place] [address]- 2324 Jun, [facility] [place] [facility] [address] [facility] [id number] [place] [address]- 1335 Jun, [facility] [place] [facility] [address] [id number] [place] [address]- 1382 Jun, [facility] [place] [facility] [address] [id number] [place] [address]- 0076 Jun, [facility] [place] [facility] [address] [facility] [id number] [place] [address]- 6053 Jun, [facility] [place] [facility] [address] [facility] [id number] [place] [address]- 1678 Jun, [facility] [place] [facility] [address] [id number] [place] [address]- 254 Jun, [facility] [place] [facility] [address] [id number] [place] [address]- 7056 Jun, [facility] [place] [facility] [address] [id number] [place] [address]- 2036 Jun, [facility] [place] [facility] [address] [facility] [id number] [place] [address]- 1336 Jun, [facility] [place] [facility] [address] [id number] [place] [address]- 8375 Jun, [facility] [place] [facility] [address] [id number] [place] [address]- 8116 Jun, [facility] [place] [facility] [address] [id number] [place] [address]- 6566 Jun, [facility] [place] [facility] [address] [id number] [place] [address]- 1636 Jun, [facility] [place] [facility] [address] [id number] [place] [address]- 7727 Jun, [facility] [place] [facility] [address] [id number] [place] [address]- 2430 Jun, [facility] [place] [facility] [address] [id number] [place] [address]- 5967 Jun, [facility] [place] [facility] [address] [id number] [place] [address]- 1784 Jun, [facility] [place] [facility] [address] [id number] [place] [address]- 5779 May, [facility] [place] [facility] [address] [facility] [id number] [place] [address] May, [facility] [place] [facility] [address] [id number] [place] [address] May, [facility] [place] [facility] [address] [id number] [place] [address] May, [facility] [place] [facility] [address] [id number] [place] [address] May, [facility] [place] [facility] [address] [id number] [place] [address]- [address] May, [facility] [place] [facility] [address] [id number] [place] [address] May, [facility] [place] [facility] [address] [id number] [place] [address] 16 May, 2013 [facility] [place] [facility] [address] [id number] [place] [address] 15 May, 2013 [facility] [place] [facility] [address] [id number] [place] [address] 15 May, 2013 [facility] [place] [facility] [address] [id number] [place] [address]- [address] 14 May, 2013 [facility] [place] [facility] [address] [id number] [place] [address] May, [facility] [place] [facility] [address] [id number] [place] [address]- 98[address] May, [facility] [place] [facility] [address] [id number] [place] [address]- 45[address] May, [facility] [place] [facility] [address] [id number] [place] [address]- [address] 18 Apr, 2013 [facility] [place] [facility] [address] [id number] [place] [address] 18 Apr, 2013 [facility] [place] [facility] [address] [id number] [place] [address]- [address] Apr, [facility] [place] [facility] [address] [id number] [place] [address]- 3926 Apr, [facility] [place] [facility] [address] [id number] [place] [address]- [address] 05 Apr, 2013 [facility] [place] [facility] [address] [id number] [place] [address]- [address] 05 Apr, 2013 [facility] [place] [facility] [address] [id number] [place] [address] Apr, [facility] [place] [facility] [address] [id number] [place] [address]- [address]60 Apr, [facility] [place] [facility] [address] [id number] [place] [address] Mar, [facility] [place] [facility] [address] [id number] [place] [address]- [address] Mar, [facility] [address] [id number] [place] [address] 2546 Mar, [facility] [place] [facility] [address] [id number] [place] [address]- [address] Mar, [facility] [address] [id number] [place] [address]- [address] Feb, [facility] [place] [facility] [address] [id number] [place] [address] Feb, [facility] [place] [facility] [address] [id number] [place] [address]- [address] Feb, [facility] [place] [facility] [address] [id number] [place] [address]- [address] Feb, [facility] [place] [facility] [address] [id number] [place] [address] Feb, [facility] [place] [facility] [address] [id number] [place] [address]- [address] Feb, [facility] [place] [facility] [address] [id number] [place] [address]- [address]39 Feb, [facility] [place] [facility] [address] [facility] [id number] [place] [address] 2546 Feb, [facility] [place] [facility] [address] [id number] [place] [address] Jan, [facility] [place] [facility] [address] [id number] [place] [address]- [address] Oct, [facility] [place] [facility] [address] [id number] [place] [address]- [address] September, [facility] [place] [facility] [address] [id number] [place] [address]- [address] Jun, [facility] [place] [facility] [address] [id number] [place] [address]- [address] Jun, [facility] [place] [facility] [address] [id number] [place] [address]- [address] Jun, [facility] [place] [facility] [address] [id number] [place] [address]- [address] Jun, [facility] [place] [facility] [address] [id number] [place] [address]- 9178 May, [facility] [place] [facility] [address] [id number] [place] [address]- [address] Apr, [facility] [place] [facility] [address] [id number] [place] [address]- 8088 Apr, [facility] [place] [facility] [address] [id number] [place] [address]- 44[address] Apr, [facility] [place] [facility] [address] [id number] [place] [address]- [address] Apr, [facility] [place] [facility] [address] [id number] [place] [address] Mar, [facility] [place] [facility] [address] [id number] [place] [address]- 3934 Mar, [facility] [place] [facility] [address] [id number] [place] [address] Jan, [facility] [place] [facility] [address] [id number] [place] [address]- 1814 Dec, [facility] [place] [facility] [address] [id number] [place] [address]- [address]69 Dec, [facility] [place] [facility] [address] [id number] [place] [address]- [address]344 Dec, [facility] [place] [facility] [address] [id number] [place] [address]- [address] Dec, [facility] [place] [facility] [address] [id number] [place] [address] Nov, [facility] [place] [facility] [address] [id number] [place] [address] Nov, [facility] [address] [id number] [place] [address] Nov, [facility] [place] [facility] [address] [id number] [place] [address] Nov, [facility] [address] [id number] [place] [address] Aug, [facility] [place] [facility] [address] [id number] [place] [address] Aug, [facility] [address] [id number] [place] [address] Jul, [facility] [place] [facility] [address] [id number] [place] [address] Jul, [facility] [place] [facility] [address] [facility] [id number] [place] [address] Jul, [facility] [place] [facility] [address] [id number] [place] [address] Jul, [facility] [place] [facility] [address] [id number] [place] [address] Jun, [facility] [place] [facility] [address] [facility] [id number] [place] [address] Jun, [facility] [place] [facility] [address] [facility] [id number] [place] [address] 14 Jun, 2011 [facility] [place] [facility] [address] [facility] [id number] [place] [address] 13 Jun, 2011 [facility] [place] [facility] [address] [id number] [place] [address] 09 Jun, 2011 [facility] [place] [facility] [address] [facility] [id number] [place] [address]46 08 Jun, 2011 [facility] [place] [facility] [address] [facility] [id number] [place] [address] 25[address] Jun, [facility] [place] [facility] [address] [id number] [place] [address] Jun, [facility] [place] [facility] [address] [id number] [place] [address] Jun, [facility] [place] [facility] [address] [id number] [place] [address] May, [facility] [place] [facility] [address] [id number] [place] [address] May, [facility] [place] [facility] [address] [id number] [place] [address] May, [facility] [place] [facility] [address] [id number] [place] [address] May, [facility] [place] [facility] [address] [id number] [place] [address] May, [facility] [place] [facility] [address] [id number] [address] Mar, [facility] [place] [facility] [address] [id number] [place] [address] Mar, [facility] [place] [facility] [address] [id number] [place] [address] Mar, [facility] [place] [facility] [address] [id number] [address] Mar, [facility] [place] [facility] [address] [id number] [place] [address] Mar, [facility] [place] [facility] [address] [id number] [place] [address] Feb, [facility] [place] [facility] [address] [id number] [address] Feb, [facility] [place] [facility] [address] [id number] [place] [address] Dec, [facility] [place] [facility] [address] [id number] [place] [address] 30 Apr, 2010 [facility] [address] [id number] [place] [address] 07 Apr, 2010 [facility] [place] [facility] [address] [id number] [place] [address] 03 Apr, 2010 [facility] [address] [id number] [place] [address] 2546 29 Feb, 2010 [facility] [place] [facility] [address] [id number] [place] [address] 2546 11 Feb, 2010 [facility] [address] [id number] [place] [address] 11 Jul, 2009 [facility] [place] [facility] [address] [id number] [place] [address] 15 Jun, 2009 [facility] [address] [facility] [id number] [place] [address] 15 May, 2009 [facility] [address] [facility] [id number] [place] [address] 29 Apr, 2009 [facility] [address] [facility] [id number] [place] [address] Apr, [facility] [address] [facility] [id number] [place] [address] Apr, [facility] [place] [facility] [address] [id number] [place] [address]46 25 Mar, 2009 [facility] [place] [facility] [address] [facility] [id number] [place] [address] 25[address] 11 Jul, 2008 [facility] [place] [facility] [address] [id number] [place] [address]46 16 Jun, 2008 [facility] [place] [facility] [address] [facility] [id number] [place] [address] 15 Jan, 2008 [facility] [place] [facility] [address] [facility] [id number] [place] [address] Oct, [facility] [address] [facility] [id number] [address] September, [facility] [address] [facility] [id number] [place] [address] Nov, [facility] [address] [facility] [id number] [place] [address] September, [facility] [address] [facility] [id number] [address] Dec, [facility] [address] [facility] [id number] [address] Mar, IMMUNIZATIONS No Known Immunizations SOCIAL HISTORY Never Assessed REASON FOR VISIT Anxiety, patient state is getting worst at the point she get so mad and crying she would like to get something today x few months -- shavon espinoza PLAN OF CARE Activity Details Follow Up 4 Weeks Reason:Mood problems VITAL SIGNS Height 59 in 2017-04-20 Weight 121.0 lbs 2017-04-20 Temperature 97.6 degrees Fahrenheit 2017-04-20 Heart Rate 78 bpm 2017-04-20 Respiratory Rate 18 2017-04-20 BMI 24.44 kg/m2 2017-04-20 Blood pressure systolic 110 mmHg 2017-04-20 Blood pressure diastolic 68 mmHg 2017-04-20 MEDICATIONS Medication Instructions Dosage Frequency Start Date End Date Duration Status Depo-Provera 150 MG/ML 1 ml Active Divalproex Sodium 250 MG Orally 2 times a day 1 tablet 12h Mar, 30 days Active Zofran 4 MG Orally every 6 hours 1 tablet 6h Dec, 3 days Not- Taking Meclizine HCl 25 MG Orally TID 1 tablet as needed 8h Dec, 7 days Not-Taking Promethazine-Codeine 6.25-10 MG/5ML Orally every 6 hrs 1-2 tsp 6h Apr, Not-Taking ProAir HFA 108 (90 Base) MCG/ACT Inhalation every 4-6 hours 2 puffs as needed Jul, Not-Taking Omeprazole 40 MG Orally Once a day 1 capsule 24h Jan, 30 day(s ) Not-Taking Excedrin PM 500-38 MG Orally Once a day 1 tablet at bedtime as needed 24h Not-Taking RESULTS No Results PROCEDURES Procedure Date Ordered Result Body Site [facility] Apr 20, 2017 VENALEXIS, ROUTINE* Apr 20, 2017 INSTRUCTIONS MEDICATIONS ADMINISTERED No Known Medications [...]
--- OUTSIDE RECORDS SUMMARY | 2018-07-08 18:39 | XMS REPORT ---
Author Author SFOIA RITTER [facility] eClinicalWorks Address Unknown Phone Unavailable Care Team Providers Care Bonding Machine Setter Name Role Phone SOFIA RITTER Unavailable Allergies No Known Allergies Problems Problem Type Condition Code Onset Dates Condition Status Assessment Major depressive disorder, recurrent episode, moderate F33.1 Active Problem Major depressive disorder, recurrent episode, moderate F33.1 Active Problem Depo-Provera contraceptive status V25.49 Active Problem Generalized anxiety disorder F41.1 Active Problem Herpes simplex without mention of complication 054.9 Active Assessment Generalized anxiety disorder F41.1 Active Problem Esophageal reflux 530.81 Active Problem Suicide and self-inflicted injury by cutting and piercing instrument E956 Active Medications Medication Code System Code Instructions Start Date End Date Status Dosage Depo-Provera [facility] [address]-94 150 MG/ML Intramuscular Jan 14, 2015 Jun 13, 2015 1 ml Omeprazole [facility] [address]-18 40 MG Orally Once a day Jan 21, 2015 1 capsule Sertraline HCl [facility] [address]-10 50 MG Orally Once a day Jan 21, 2015 1 tablet Procedures Procedure Coding System Code Date Psych diagnostic evaluation, established patient CPT-4 98583 Apr 08, 2015 Results No Known Results Summary Purpose eClinicalWorks Submission
--- OUTSIDE RECORDS SUMMARY | 2018-07-08 18:40 | XMS REPORT ---
Author Author LAZARA MELTON Organization e[employer] Address Unknown Phone Unavailable Care Team Providers Care Bronc Buster Name Role Phone LAZARA MELTON CP Unavailable Allergies, Adverse Reactions, Alerts Substance Reaction Event Type Prednisone irritable Drug Allergy Vancomycin documented reaction to IV antibiotics during hospitalization. 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 Active Problem Maternal anemia of mother, complicating , childbirth, or the puerperium, unspecified as to episode of care 648.20 Active Problem Panic disorder without agoraphobia 300.01 Active Problem Other maternal venereal diseases, complicating , childbirth, or the puerperium, unspecified as to episode of care 647.20 Active Problem Screening examination for venereal disease V74.5 Active Problem Need for prophylactic vaccination and inoculation against rubella alone V04.3 Active Problem Contact dermatitis and other eczema, due to unspecified cause 692.9 Active Problem Supervision of high-risk of young primigravida V23.83 Active Problem examination or test, negative result V72.41 Active Problem Encounter for contraceptive management V25.9 Active Problem Screening for depression V79.0 Active Problem Encounter for insertion of intrauterine contraceptive device V25.11 Active Problem Unspecified gastritis and gastroduodenitis without mention of hemorrhage 535.50 Active Problem Depo-Provera contraceptive status V25.49 Active Problem Unspecified constipation 564.00 Active Problem Unspecified contraceptive management V25.9 Active Problem Surveillance of previously prescribed intrauterine contraceptive device V25.42 Active Problem Esophageal reflux 530.81 Active Problem Encounter for removal of intrauterine contraceptive device V25.12 Active Problem Screening for iron deficiency anemia V78.0 Active Assessment Depo-Provera contraceptive status V25.49 Active Problem Other general counseling and advice for contraceptive management V25.09 Active Problem Supervision of normal first V22.0 Active Problem Herpes simplex without mention of complication 054.9 Active Problem Pain in joint, ankle and foot 719.47 Active Problem Abdominal pain, unspecified site 789.00 Active Problem General counseling for prescription of oral contraceptives V25.01 Active Problem Suicide and self-inflicted injury by cutting and piercing instrument E956 Active Medications Medication Code System Code Instructions Start Date End Date Status Dosage Depo-Provera [facility] [address]-47 150 MG/ML Intramuscular Jan 14, 2015 Jun 13, 2015 1 ml Procedures Procedure Coding System Code Date Office Visit, Est Pt., Level 3 CPT-4 47772 Jan 14, 2015 DEPO PROVERA (150 MG/ML) CPT-4 J1050 Jan 14, 2015 URINE TEST CPT-4 99953 Jan 14, 2015 THER/PROPH/DIAG INJ, SC/IM CPT-4 11692 Jan 14, 2015 Vital Signs Date/Time: Jan 14, 2015 Temperature 97.3 F Weight 117.4 lbs Height 59 in BMI 23.71 Index Blood Pressure Diastolic 80 mmHg Blood Pressure Systolic 118 mmHg Cardiac Monitoring Heart Rate 76 bpm BMIPercentile 73.47 % Wt Percentile 34.66 % Results No Known Results Summary Purpose eClinicalWorks Submission
--- OUTSIDE RECORDS SUMMARY | 2018-07-08 18:40 | XMS REPORT ---
Author Author ROBERTO FIGUEROA [facility] Address [address] [place] [address] Care Team Providers Care Test Analyst Name Role Phone ROBERTO FIGUEROA Unavailable PROBLEMS Type Condition ICD9-CM Code [id number] Code Onset Dates Condition Status SNOMED Code Problem Late period N92.6 Active 803021646 Problem Bipolar disorder, unspecified F31.9 Active 96586921 Problem Suicide and self-inflicted injury by cutting and piercing instrument E956 Active 103614762 Problem Esophageal reflux K21.9 Active 173346254 Problem Herpes simplex without mention of complication 054.9 Active 598089372 ALLERGIES Unknown Allergies SOCIAL HISTORY No smoking Hx information available PLAN OF CARE VITAL SIGNS MEDICATIONS Unknown Medications RESULTS No Results PROCEDURES No Known procedures IMMUNIZATIONS No Known Immunizations
--- OUTSIDE RECORDS SUMMARY | 2018-07-08 18:40 | XMS REPORT ---
Author Author BHUPINDER SLADE [facility] Address [address] [place] [address] Care Team Providers Care Sports Cartoonist Name Role Phone BHUPINDER SLADE Unavailable PROBLEMS Type Condition ICD9-CM Code GAO47-GL Code Onset Dates Condition Status SNOMED Code Problem Bipolar disorder, unspecified F31.9 Active [id number] ALLERGIES Substance Reaction Event Type Date Status Zoloft Unknown Drug Allergy Apr, Active Prednisone irritable Drug Allergy Apr, Active Vancomycin documented reaction to IV antibiotics during hospitalization. Drug Allergy Apr, Active ENCOUNTERS Encounter Location Date Diagnosis [place] [id number] [place] [address] 95786- 3946 September, History of fainting spells of unknown cause Z91.89 [place] [address] [place] [id number] [place] [address] 18703- 5232 Aug, Yeast infection involving the vagina and surrounding area B37.3 ; Bipolar disorder, unspecified F31.9 and Trichomonas vaginalis infection A59.9 [place] [address] [address] Jun, Bipolar disorder, unspecified F31.9 [place] [address] [place] [address] 01706- 2499 Jun, Encounter for surveillance of injectable contraceptive Z30.42 and Bipolar disorder, unspecified F31.9 [place] [address] [place] [id number] [place] [address] 03031- 2512 May, Encounter for Depo-Provera contraception Z30.42 [facility] [address] [place] [address] 80411 -6643 Apr, Syncope, unspecified syncope type R55 [facility] [address] [place] [address] 32624- 4110 Mar, Bipolar disorder, unspecified F31.9 and High risk medication use Z79.899 [facility] [address] [place] [id number] [place] [address] 96211- 7344 Feb, [facility] [address] 73944- 5560 Feb, Encounter for Depo-Provera contraception Z30.42 [facility] [address] 63134- 7335 Nov, Encounter for Depo-Provera contraception Z30.42 [place] [address] [place] [id number] [place] [address] 73541- 9833 September, [place] [address] 13675- 8245 Aug, [facility] [address] [place] [id number] [place] [address] 42935- 6016 Aug, Late period N92.6 ; STD exposure Z20.2 ; control counseling Z30.09 and Encounter for Depo-Provera contraception Z30.42 [facility] IN [facility] [address] [place] [address] 79419 -5030 Jul, Body aches R52 ; Influenza A J10.1 ; Impacted cerumen of left ear H61.22 and Acute serous otitis media of left ear, recurrence not specified H65.02 [facility] [address] [place] [id number] [place] [address] 96101- 1817 May, [facility] [address] 52122- 9213 Apr, Encounter for female control Z30.019 ; Encounter for Depo-Provera contraception Z30.42 and Well woman exam Z01.419 [facility] [address] [id number] Feb, Dental examination Z01.20 [facility] [address] [place] [address] [id number] Feb, Dental caries K02.9 [facility] [address] [place] [id number] [place] [address] [id number] Feb, Dental examination Z01.20 [facility] [address] [place] [id number] [place] [address] 54216 -0626 Dec, Bilateral impacted cerumen H61.23 ; Dizziness R42 and Nausea R11.0 [facility] [address] 50167- 9804 Dec, Encounter for Depo-Provera contraception Z30.42 [facility] [address] 20502- 6578 Oct, Bipolar affective disorder, currently depressed, moderate F31.32 [place] [address] 08804- 9066 September, Bipolar disorder, unspecified F31.9 [facility] [address] 58499- 6368 September, Bipolar disorder, unspecified F31.9 [facility] [address] [place] [id number] [place] [address] 53372- 9812 September, Bipolar disorder, unspecified F31.9 [place] [address] [place] [id number] [place] [address] 61500- 7306 September, Encounter for Depo-Provera contraception Z30.42 [facility] [address] [place] [id number] [place] [address] 29508- 0107 Aug, Bipolar disorder, unspecified F31.9 [facility] [address] 24469- 5752 Jun, Encounter for Depo-Provera contraception Z30.42 [facility] [address] 53956- 7823 Apr, URI (upper respiratory infection) J06.9 [facility] [address] [place] [id number] [place] [address] 55537- 9988 Mar, Encounter for Depo-Provera contraception Z30.42 [facility] [address] [place] [id number] [place] [address] 01818- 6319 Mar, [facility] [address] 16141- 5362 Mar, Generalized anxiety disorder F41.1 and Major depressive disorder, recurrent episode, moderate F33.1 [facility] [address] 41855- 6440 Jan, Esophageal reflux 530.81 ; Depression 311 and Anxiety 300.00 [facility] [address] [place] [id number] [place] [address] 30418- 1128 Dec, Depo-Provera contraceptive status V25.49 [facility] [address] 57110- 6347 Dec, test negative V72.41 [facility] [address] [place] [id number] [place] [address] 71317- 1879 Oct, [facility] [address] [place] [id number] [place] [address] 15660- 8373 Oct, [facility] [address] [place] [id number] [place] [address] 53193- 1658 September, [facility] [address] [place] [id number] [place] [address] 44678- 1971 September, [facility] [address] [place] [id number] [place] [address] 81880- 1215 September, [facility] [address] [place] [id number] [place] [address] 57768- 5372 September, [facility] [address] [place] [id number] [place] [address] 97979- 2202 September, [facility] [address] [id number] [place] [address]- 3164 September, [facility] [address] [id number] [place] [address]- 3778 September, [facility] [address] [id number] [place] [address]- 0362 September, Other general counseling and advice for contraceptive management V25.09 [facility] [address] [id number] [place] [address]- 0141 September, [facility] [address] [id number] [place] [address]- 4351 September, [facility] [address] [id number] [place] [address]- 1417 September, [facility] [address] [id number] [place] [address]- 5745 September, [facility] [address] [id number] [place] [address]- 7769 29 Aug, 2014 [facility] [address] [id number] [place] [address]- 5277 28 Aug, 2014 [facility] [address] [id number] [place] [address]- 4113 14 Aug, 2014 [facility] [address] [id number] [place] [address]- 9894 Aug, [facility] [address] [id number] [place] [address]- 7124 27 Jul, 2014 [facility] [address] [id number] [place] [address]- 9988 27 Jul, 2014 [facility] [address] [id number] [place] [address]- 8461 20 Jul, 2014 [facility] [address] [id number] [place] [address]- 7067 Jul, [facility] [address] [id number] [place] [address]- 7235 19 Jul, 2014 [facility] [place] [facility] [address] [id number] [place] [address]- 1847 Jul, 2014 [facility] [place] [facility] [address] [id number] [place] [address]- 4116 18 Jul, 2014 [facility] [place] [facility] [address] [id number] [place] [address]- 5366 16 Jun, 2014 [facility] [place] [facility] [address] [id number] [place] [address]- 0101 Jun, 2014 [facility] [place] [facility] [address] [id number] [place] [address]- 8516 Jun, 2014 [facility] [place] [facility] [address] [id number] [place] [address]- 8299 Jun, 2014 [facility] [place] [facility] [address] [id number] [place] [address]- 1822 Jun, 2014 [facility] [place] [facility] [address] [id number] [place] [address]- 6318 Jun, [facility] [place] [facility] [address] [id number] [place] [address]- 5095 May, [facility] [place] [facility] [address] [id number] [place] [address]- 7842 May, [facility] [place] [facility] [address] [id number] [place] [address]- 0038 Apr, [facility] [place] [facility] [address] [id number] [place] [address] 2540 Apr, [facility] [place] [facility] [address] [id number] [place] [address]- 9056 Apr, [facility] [place] [facility] [address] [id number] [place] [address]- 1616 Apr, [facility] [place] [facility] [address] [id number] [place] [address]- 3924 Apr, [facility] [place] [facility] [address] [id number] [place]26 Apr, [facility] [place] [facility] [address] [id number] [place] [address]- 5120 Mar, [facility] [place] [facility] [address] [id number] [place] 0934 Mar, [facility] [place] [facility] [address] [id number] [place] [address]- 2601 Mar, [facility] [place] [facility] [address] [id number] [place] [address]- 9988 Mar, [facility] [place] [facility] [address] [id number] [place] [address]- 7959 Mar, [facility] [place] [facility] [address] [id number] [place] [address]- 1497 Feb, [facility] [place] [facility] [address] [id number] [place] [address]- 1147 Feb, [facility] [place] [facility] [address] [id number] [place] [address]- 3430 Feb, [facility] [place] [facility] [address] [id number] [place] [address]- 4486 Feb, [facility] [place] [facility] [address] [id number] [address]- 9909 Feb, [facility] [place] [facility] [address] [id number], [place] [address]- 1259 Feb, [facility] [place] [facility] [address] [id number] [place] [address]- 5345 Feb, [facility] [place] [facility] [address] [id number] 3822 Feb, [facility] [place] [facility] [address] [id number], [place] [address]- 0265 Jan, [facility] [place] [facility] [address] [id number] [place] [address]- 8546 05 Sep, 2013 [facility] [place] [facility] [address] [id number] [place] [address] 2546 05 Sep, 2013 [facility] [place] [facility] [address] [id number] [place] [address] 2546 Jan, 2013 [facility] [place] [facility] [address] [id number] [place] [address]- 4556 Jan, 2013 [facility] [place] [facility] [address] [id number] [place] [address] 2546 Jan, 2013 [facility] [place] [facility] [address] [id number] [place] [address]- 7619 Jan, 2013 [facility] [place] [facility] [address] [id number] [place] [address]- 4465 Jan, 2013 [facility] [place] [facility] [address] [id number] [place] [address]- 4924 Dec, [facility] [place] [facility] [address] [id number] [place] [address]- 7506 Dec, [facility] [place] [facility] [address] [id number] [place] [address]- 0516 Dec, [facility] [place] [facility] [address] [id number] [place] [address]- 3234 Dec, [facility] [place] [facility] [address] [id number] [place] [address] 2541 Dec, [facility] [place] [facility] [address] [id number] [place] [address]- 2542 Dec, [facility] [place] [facility] [address] [id number] [place] [address]- 6060 Dec, [facility] [place] [facility] [address] [id number] [place] [address]- 2549 Dec, [facility] [place] [facility] [address] [id number] [place] [address]- 8010 Dec, [facility] [place] [facility] [address] [id number] [place] [address]- 1066 Dec, [facility] [place] [facility] [address] [id number] [place] [address]- 8904 Dec, [facility] [place] [facility] [address] [id number] [place] [address]- 5213 Dec, [facility] [place] [facility] [address] [id number] [place] [address]- 7990 Dec, [facility] [place] [facility] [address] [id number] [place] [address]- 6818 Dec, [facility] [place] [facility] [address] [id number] [place] [address]- 6713 Dec, [facility] [place] [facility] [address] [id number] [place] [address]- 3455 Dec, [facility] [place] [facility] [address] [id number] [place] [address]- 0298 Dec, [facility] [place] [facility] [address] [id number] [place] [address]- 2407 Nov, [facility] [place] [facility] [address] [id number] [place] [address]- 8855 Nov, [facility] [place] [facility] [address] [id number] [place] [address]- 9357 Nov, [facility] [place] [facility] [address] [id number] [place] [address]- 0257 Nov, [facility] [place] [facility] [address] [id number] [place] [address]- 8905 Nov, [facility] [place] [facility] [address] [id number] [place] [address]- 5217 Nov, [facility] [place] [facility] [address] [id number] [place] [address]- 1579 Nov, [facility] [place] [facility] [address] [id number] [place] [address]- 8571 Nov, [facility] [place] [facility] [address] [id number] [place] [address]- 1190 Nov, [facility] [place] [facility] [address] [id number] [place] [address]- 3476 Oct, [facility] [place] [facility] [address] [id number] [place] [address]- 9873 Oct, [facility] [place] [facility] [address] [id number] [place] [address]- 6704 Oct, [facility] [place] [facility] [address] [id number] [place] [address]- 8666 Oct, [facility] [place] [facility] [address] [id number] [place] [address]- 6203 Oct, [facility] [place] [facility] [address] [id number] [place] [address]- 8599 Oct, [facility] [place] [facility] [address] [id number] [place] [address]- 3618 Oct, [facility] [place] [facility] [address] [id number] [place] [address]- 2892 Oct, [facility] [place] [facility] [address] [id number] [place] [address]- 9282 Oct, [facility] [place] [facility] [address] [id number] [place] [address]- 2154 Oct, [facility] [place] [facility] [address] [id number] [place] [address]- 5047 September, [facility] [place] [facility] [address] [id number] [place] [address]- 9393 September, [facility] [place] [facility] [address] [id number] [place] [address]- 5827 September, [facility] [place] [facility] [address] [id number] [place] [address]- 7245 September, [facility] [place] [facility] [address] [id number] [place] [address]- 9529 29 Aug, 2013 [facility] [address] [id number] [place] [address]- 1992 Aug, [facility] [place] [facility] [address] [id number] [place] [address]- 4690 Aug, [facility] [address] [id number] [place] [address]- 6233 Aug, [facility] [place] [facility] [address] [id number] [place] [address]- 8476 Aug, [facility] [address] [id number] [place] [address]- 1609 Aug, [facility] [place] [facility] [address] [id number] [place] [address]- 5135 Aug, [facility] [place] [facility] [address] [id number] [place] [address]- 6584 Aug, [facility] [address] [id number] [place] [address]- 2811 Aug, [facility] [place] [facility] [address] [id number] [place] [address]- 7554 Aug, [facility] [address] [id number] [place] [address]- 3487 Aug, [facility] [place] [facility] [address] [id number] [place] [address]- 5032 24 Jul, 2013 [facility] [place] [facility] [address] [id number] [place] [address]- 2708 24 Jul, 2013 [facility] [place] [facility] [address] [id number] [place] [address]- 3372 10 Jul, 2013 [facility] [place] [facility] [address] [id number] [place] [address]- 9896 10 Jul, 2013 [facility] [place] [facility] [address] [id number] [place] [address]- 8863 Jul, [facility] [place] [facility] [address] [id number] [place] [address]- 5928 Jul, [facility] [place] [facility] [address] [id number] [place] [address]- 9679 Jun, [facility] [place] [facility] [address] [facility] [id number] [place] [address]- 1395 Jun, [facility] [place] [facility] [address] [id number] [place] [address]- 9407 Jun, [facility] [place] [facility] [address] [id number] [place] [address]- 7360 Jun, [facility] [place] [facility] [address] [id number] [place] [address]- 2818 Jun, [facility] [place] [facility] [address] [facility] [id number] [place] [address]- 0274 Jun, [facility] [place] [facility] [address] [id number] [place] [address]- 3692 Jun, [facility] [place] [facility] [address] [facility] [id number] [place] [address]- 7946 Jun, [facility] [place] [facility] [address] [facility] [id number] [place] [address]- 2835 Jun, [facility] [place] [facility] [address] [facility] [id number] [place] [address]- 9582 Jun, [facility] [place] [facility] [address] [facility] [id number] [place] [address]- 6488 Jun, [facility] [place] [facility] [address] [facility] [id number] [place] [address]- 8821 Jun, [facility] [place] [facility] [address] [facility] [id number] [place] [address]- 9908 Jun, [facility] [place] [facility] [address] [facility] [id number] [place] [address]- 6553 Jun, [facility] [place] [facility] [address] [id number] [place] [address]- 3942 Jun, [facility] [place] [facility] [address] [id number] [place] [address]- 0986 Jun, [facility] [place] [facility] [address] [id number] [place] [address]- 3596 Jun, [facility] [place] [facility] [address] [id number] [place] [address]- 8256 Jun, [facility] [place] [facility] [address] [id number] [place] [address]- 8570 Jun, [facility] [place] [facility] [address] [id number] [place] [address]- 5576 Jun, [facility] [place] [facility] [address] [id number] [place] [address]- 2868 Jun, [facility] [place] [facility] [address] [id number] [place] [address]- 6337 Jun, [facility] [place] [facility] [address] [id number] [place] [address]- 4617 May, [facility] [place] [facility] [address] [id number] [place] [address]- 2919 May, [facility] [place] [facility] [address] [id number] [place] [address]- 2987 May, [facility] [place] [facility] [address] [id number] [place] [address]- 8808 May, [facility] [place] [facility] [address] [id number] [place] [address]- 6537 May, [facility] [place] [facility] [address] [id number] [place] [address]- 0079 May, [facility] [place] [facility] [address] [id number] [place] [address]- 6033 May, [facility] [place] [facility] [address] [id number] [place] [address] 16 May, 2013 [facility] [address] [id number] [place] [address] 15 May, 2013 [facility] [place] [facility] [address] [id number] [place] [address] 15 May, 2013 [facility] [place] [facility] [address] [id number] [place] [address] 14 May, 2013 [facility] [place] [facility] [address] [id number] [place] [address] 14 May, 2013 [facility] [place] [facility] [address] [id number] [place] [address] May, [facility] [place] [facility] [address] [id number] [place] [address] May, [facility] [address] [id number] [place] [address] 18 Apr, 2013 [facility] [place] [facility] [address] [id number] [place] [address] 18 Apr, 2013 [facility] [place] [facility] [address] [id number] [place] [address] Apr, [facility] [place] [facility] [address] [facility] [id number] [place] [address] Apr, [facility] [place] [facility] [address] [id number] [place] [address] 05 Apr, 2013 [facility] [place] [facility] [address] [id number] [place] [address] 05 Apr, 2013 [facility] [place] [facility] [address] [id number] [place] [address]- [address] 04 Apr, 2013 [facility] [place] [facility] [address] [id number] [place] [address] Apr, [facility] [place] [facility] [address] [id number] [place] [address] Mar, [facility] [place] [facility] [address] [id number] [place] [address] Mar, [facility] [place] [facility] [address] [id number] [place] [address] Mar, [facility] [place] [facility] [address] [id number] [place] [address] Mar, [facility] [place] [facility] [address] [id number] [place] [address] Feb, [facility] [place] [facility] [address] [id number] [place] [address] Feb, [facility] [place] [facility] [address] [id number] [place] [address] Feb, [facility] [place] [facility] [address] [id number] [place] [address] Feb, [facility] [place] [facility] [address] [id number] [place] [address] Feb, [facility] [place] [facility] [address] [id number] [place] [address] Feb, [facility] [place] [facility] [address] [id number] [place] [address] Feb, [facility] [place] [facility] [address] [id number] [place] [address] Feb, [facility] [place] [facility] [address] [id number] [place] [address] Jan, [facility] [place] [facility] [address] [id number] [place] [address] Oct, [facility] [place] [facility] [address] [id number] [place] [address] September, [facility] [place] [facility] [address] [id number] [place] [address] Jun, [facility] [place] [facility] [address] [id number] [place] [address] Jun, [facility] [address] [id number] [place] [address] Jun, [facility] [place] [facility] [address] [id number] [place] [address] Jun, [facility] [place] [facility] [address] [id number] [place] [address] May, [facility] [place] [facility] [address] [id number] [place] [address] Apr, [facility] [place] [facility] [address] [id number] [place] [address] Apr, [facility] [place] [facility] [address] [id number] [place] [address] Apr, [facility] [address] [id number] [place] [address] Apr, [facility] [place] [facility] [address] [id number] [place] [address] Mar, [facility] [address] [id number] [place] [address] Mar, [facility] [place] [facility] [address] [id number] [place] [address] Jan, [facility] [facility] [place] [facility] [address] [id number] [place] [address] Dec, [facility] [place] [facility] [address] [id number] [place] [address] Dec, [facility] [place] [facility] [address] [id number] [place] [address] Dec, [facility] [place] [facility] [address] [id number] [place] [address] Dec, [facility] [place] [facility] [address] [id number] [place] [address] Nov, [facility] [place] [facility] [address] [id number] [place] [address] Nov, [facility] [address] [id number] [place] [address] Nov, [facility] [place] [facility] [address] [id number] [place] [address] Nov, [facility] [place] [facility] [address] [id number] [place] [address] Aug, [facility] [place] [facility] [address] [id number] [place] [address] Aug, [facility] [place] [facility] [address] [id number] [place] [address] Jul, [facility] [place] [facility] [address] [facility] [id number] [place] [address] Jul, [facility] [place] [facility] [address] [id number] [place] [address] Jul, [facility] [address] [id number] [place] [address] Jul, [facility] [place] [facility] [address] [facility] [id number] [place] [address] Jun, [facility] [address] [facility] [id number] [place] [address] Jun, [facility] [place] [facility] [address] [facility] [id number] [place] [address] 14 Jun, 2011 [facility] [place] [facility] [address] [id number] [place] [address] 13 Jun, 2011 [facility] [place] [facility] [address] [id number] [place] [address] 09 Jun, 2011 [facility] [place] [facility] [address] [id number] [place] [address]78 08 Jun, 2011 [facility] [place] [facility] [address] [facility] [id number] [place] [address] Jun, [facility] [place] [facility] [address] [id number] [place] [address] Jun, [facility] [place] [facility] [address] [id number] [place] [address] Jun, [facility] [place] [facility] [address] [facility] [id number] [place] [address] May, [facility] [place] [facility] [address] [id number] [place] [address] May, [facility] [place] [facility] [address] [id number] [place] [address], [place] [address] May, [facility] [place] [facility] [address] [facility] [id number] [place] [address] May, [facility] [place] [facility] [address] [facility] [id number] [place] [address] May, [facility] [place] [facility] [address] [facility] [id number] [place] [address] Mar, [facility] [place] [facility] [address] [facility] [id number] [place] [address] Mar, [facility] [place] [facility] [address] [facility] [id number] [place] [address] Mar, [facility] [place] [facility] [address] [facility] [id number], [place] [address] Mar, [facility] [place] [facility] [address] [id number], [place] [address] Mar, [facility] [place] [facility] [address] [id number] [place] [address] Feb, [facility] [place] [facility] [address] [facility] [id number] [place] [address] Feb, [facility] [place] [facility] [address] [facility] [id number] [place] [address] Dec, [facility] [place] [facility] [address] [id number] [place] [address] 30 Apr, 2010 [facility] [place] [facility] [address] [id number] [place] [address] 07 Apr, 2010 [facility] [place] [facility] [address] [id number] [place] [address]46 03 Apr, 2010 [facility] [place] [facility] [address] [id number] [place] [address] 2546 29 Feb, 2010 [facility] [place] [facility] [address] [id number] [place] [address] 2547 11 Feb, 2010 [facility] [place] [facility] [address] [id number] [place] [address] Jul, [facility] [place] [facility] [address] [id number] [place] [address]368 15 Jun, 2009 [facility] [place] [facility] [address] [id number] [place] [address] 15 May, 2009 [facility] [place] [facility] [address] [id number] [place] [address] 29 Apr, 2009 [facility] [place] [facility] [address] [id number] [place] [address] Apr, [facility] [place] [facility] [address] [facility] [id number] [place] [address] Apr, [facility] [place] [facility] [address] [id number] [place] [address] Mar, [facility] [place] [facility] [address] [id number] [place] [address] 254 11 Jul, 2008 [facility] [place] [facility] [address] [id number] [place] [address] 2546 16 Jun, 2008 [facility] [place] [facility] [address] [id number] [place] [address] 15 Jan, 2008 [facility] [place] [facility] [address] [id number], [place] [address] Oct, [facility] [address] [facility] [id number] [place] [address] September, [facility] [address] [facility] [id number], [place] [address] Nov, [facility] [address] [facility] [id number], [place] [address] September, [facility] [address] [facility] [id number], [place] [address] Dec, [facility] [address] [facility] [id number], [place] [address] Mar, IMMUNIZATIONS No Known Immunizations SOCIAL HISTORY Never Assessed REASON FOR VISIT fainting today at work- lost conc for about 1.5 min 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 PLAN OF CARE Activity Details Follow Up 4 Weeks, prn Reason: VITAL SIGNS Height 59 in 2017-04-24 Weight 119.4 lbs 2017-04-24 Temperature 97.4 degrees Fahrenheit 2017-04-24 Heart Rate 80 bpm 2017-04-24 Respiratory Rate 20 2017-04-24 BMI 24.11 kg/m2 2017-04-24 Blood pressure systolic 102 mmHg 2017-04-24 Blood pressure diastolic 64 mmHg 2017-04-24 MEDICATIONS Medication Instructions Dosage Frequency Start Date End Date Duration Status Promethazine-Codeine 6.25-10 MG/5ML Orally every 6 hrs 1-2 tsp 6h Apr, Not-Taking Excedrin PM 500-38 MG Orally Once a day 1 tablet at bedtime as needed 24h Not-Taking Omeprazole 40 MG Orally Once a day 1 capsule 24h Jan, 30 day(s ) Not-Taking Zofran 4 MG Orally every 6 hours 1 tablet 6h Dec, 3 days Not- Taking Meclizine HCl 25 MG Orally TID 1 tablet as needed 8h Dec, 7 days Not-Taking ProAir HFA 108 (90 Base) MCG/ACT Inhalation every 4-6 hours 2 puffs as needed Jul, Not-Taking Depo-Provera 150 MG/ML 1 ml Active Divalproex Sodium 250 MG Orally 2 times a day 1 tablet 12h Mar, 30 days Not-Taking RESULTS No Results PROCEDURES No Known procedures [...]
--- OUTSIDE RECORDS SUMMARY | 2018-07-08 18:46 | XMS REPORT | Continuity of Care Document ---
Author Author [facility] Address Unknown Phone Unavailable Allergies Active Description Code Type Severity Reaction Onset Reported/Identified Relationship to Patient Clinical Status Yes Zoloft Drug Allergy N/A N/A 04/15/2009 Yes Zoloft Drug Allergy 04/15/2009 Yes prednisone Drug Allergy N/A N/A 01/27/2012 Yes prednisone Drug Allergy 01/27/2012 Yes prednisone [id number] Drug Allergy Unknown N/A 01/19/2014 Yes red dye [id number] Drug Allergy Unknown N/A 01/19/2014 Yes vancomycin [id number] Drug Allergy Mild HIVES 08/08/2014 Yes vancomycin Drug Allergy N/A N/A 08/15/2014 Medications There is no data. Problems Date Dx Coded Attending Type Code Diagnosis Diagnosed By 02/04/2008 110.5 Tinea Corporis 02/04/2008 110.5 Tinea Corporis 02/04/2008 110.5 Tinea Corporis 02/04/2008 SHAY SAINZ DO 110.5 Tinea Corporis 02/04/2008 110.5 Tinea Corporis 02/04/2008 SHAY SAINZ DO 110.5 Tinea Corporis 02/04/2008 110.5 Tinea Corporis 02/04/2008 110.5 Tinea Corporis 02/04/2008 SJ FINK, CASSIDY Castillo 110.5 Tinea Corporis 02/04/2008 SHAY SAINZ DO 110.5 Tinea Corporis 02/04/2008 DELMER PATRICE OVIEDO 110.5 Tinea Corporis 02/04/2008 PATRICE GRANADOS 110.5 Tinea Corporis 02/04/2008 PATRICE GRANADOS 110.5 Tinea Corporis 02/04/2008 OTTONIEL NICOLE APRN 110.5 Tinea Corporis 02/04/2008 PATRICE GRANADOS 110.5 Tinea Corporis 02/04/2008 DELMER CS, PATRICE A 110.5 Tinea Corporis 02/04/2008 [facility], OTTONIEL A 110.5 Tinea Corporis 02/04/2008 [facility], BENSON R 110.5 Tinea Corporis 02/04/2008 [facility], PATRICE A 110.5 Tinea Corporis 02/04/2008 [facility], BENSON R 110.5 Tinea Corporis 02/04/2008 [facility], BENSON R 110.5 Tinea Corporis 02/04/2008 CHRIS CONROY, SAI 110.5 Tinea Corporis 02/04/2008 SAINZ DO, SHAY K 110.5 Tinea Corporis 02/04/2008 [facility], LAZARA A 110.5 Tinea Corporis 02/04/2008 SAINZ DO, SHAY K 110.5 Tinea Corporis 02/04/2008 [facility], LAZARA A 110.5 Tinea Corporis 02/04/2008 [facility], LAZARA A 110.5 Tinea Corporis 02/04/2008 SAINZ DO, SHAY K 110.5 Tinea Corporis 02/04/2008 MIKE ANDERSON APRN 110.5 Tinea Corporis 02/04/2008 SAINZ DO, SHAY K 110.5 Tinea Corporis 02/04/2008 SAINZ DO, SHAY K 110.5 Tinea Corporis 02/04/2008 SAINZ DO, SHAY K 110.5 Tinea Corporis 02/04/2008 SAINZ DO, SHAY K 110.5 Tinea Corporis 02/04/2008 SAINZ DO, SHAY K 110.5 Tinea Corporis 02/04/2008 SAINZ DO, SHAY K 110.5 Tinea Corporis 02/04/2008 SAINZ DO, SHAY K 110.5 Tinea Corporis 02/04/2008 SAINZ DO, SHAY K 110.5 Tinea Corporis 02/04/2008 HENRY CONROY, ROBERTO Fernandez 110.5 Tinea Corporis 02/04/2008 [facility], LAZARA A 110.5 Tinea Corporis 02/04/2008 [facility], LAZARA A 110.5 Tinea Corporis 02/04/2008 SAINZ DO, SHAY K 110.5 Tinea Corporis 02/04/2008 [facility], BENSON R 110.5 Tinea Corporis 02/04/2008 [facility] CON[facility], LAZARA A 110.5 Tinea Corporis 02/04/2008 SAINZ DO, SHAY K 110.5 Tinea Corporis 02/04/2008 [facility], BENSON R 110.5 Tinea Corporis 02/04/2008 [facility], LAZRAA A 110.5 Tinea Corporis 02/04/2008 [facility], BENSON R 110.5 Tinea Corporis 05/12/2008 461.9 Sinusitis Acute 05/12/2008 461.9 Sinusitis Acute 05/12/2008 461.9 Sinusitis Acute 05/12/2008 SAINZ DO, SHAY K 461.9 Sinusitis Acute 05/12/2008 461.9 Sinusitis Acute 05/12/2008 SAINZ DO, SHAY K 461.9 Sinusitis Acute 05/12/2008 461.9 Sinusitis Acute 05/12/2008 461.9 Sinusitis Acute 05/12/2008 SJ FINK, CASSIDY Castillo 461.9 Sinusitis Acute 05/12/2008 SAINZ DO, SHAY K 461.9 Sinusitis Acute 05/12/2008 DOWELL LSCS, PATRICE A 461.9 Sinusitis Acute 05/12/2008 DOWELL LSCS, PATRICE A 461.9 Sinusitis Acute 05/12/2008 DOWELL LSCS, PATRICE A 461.9 Sinusitis Acute 05/12/2008 [facility], OTTONIEL A 461.9 Sinusitis Acute 05/12/2008 DOWELL LSCS, PATRICE A 461.9 Sinusitis Acute 05/12/2008 DOWELL LSCS, PATRICE A 461.9 Sinusitis Acute 05/12/2008 [facility], OTTONIEL A 461.9 Sinusitis Acute 05/12/2008 [facility], BENSON R 461.9 Sinusitis Acute 05/12/2008 DOWELL LSCS, PATRICE A 461.9 Sinusitis Acute 05/12/2008 [facility], BENSON R 461.9 Sinusitis Acute 05/12/2008 [facility], BENSON R 461.9 Sinusitis Acute 05/12/2008 SAI PEREZ MD 461.9 Sinusitis Acute 05/12/2008 SAINZ DO SHAY K 461.9 Sinusitis Acute 05/12/2008 [facility], LAZARA A 461.9 Sinusitis Acute 05/12/2008 SAINZ DO, SHAY K 461.9 Sinusitis Acute 05/12/2008 [facility], LAZARA A 461.9 Sinusitis Acute 05/12/2008 [facility], LAZARA A 461.9 Sinusitis Acute 05/12/2008 ASINZ DO, SHAY K 461.9 Sinusitis Acute 05/12/2008 MIKE ANDERSON APRN 461.9 Sinusitis Acute 05/12/2008 SAINZ DO, SHAY K 461.9 Sinusitis Acute 05/12/2008 SAINZ DO, SHAY K 461.9 Sinusitis Acute 05/12/2008 SAINZ DO, SHAY K 461.9 Sinusitis Acute 05/12/2008 SAINZ DO, SHAY K 461.9 Sinusitis Acute 05/12/2008 SAINZ DO, SHAY K 461.9 Sinusitis Acute 05/12/2008 SAINZ DO, SHAY K 461.9 Sinusitis Acute 05/12/2008 SAINZ DO, SHAY K 461.9 Sinusitis Acute 05/12/2008 SAINZ DO, SHAY K 461.9 Sinusitis Acute 05/12/2008 HENRY CONROY, ROBERTO Fernandez 461.9 Sinusitis Acute 05/12/2008 LINH APRN, LAZARA A 461.9 Sinusitis Acute 05/12/2008 [facility], LAZARA A 461.9 Sinusitis Acute 05/12/2008 SAINZ DO, SHAY K 461.9 Sinusitis Acute 05/12/2008 MELANIE BREWERN, BENSON R 461.9 Sinusitis Acute 05/12/2008 [facility], LAZARA A 461.9 Sinusitis Acute 05/12/2008 SAINZ DO, SHAY K 461.9 Sinusitis Acute 05/12/2008 [facility], BENSON R 461.9 Sinusitis Acute 05/12/2008 [facility], LAZARA A 461.9 Sinusitis Acute 05/12/2008 [facility], BENSON R 461.9 Sinusitis Acute 05/13/2008 311 DEPRESSION 05/13/2008 314.00 ATTENTION DEFICIT DISORDER WITHOUT HYPERACTIVITY 05/13/2008 311 DEPRESSION 05/13/2008 314.00 ATTENTION DEFICIT DISORDER WITHOUT HYPERACTIVITY 05/13/2008 311 DEPRESSION 05/13/2008 314.00 ATTENTION DEFICIT DISORDER WITHOUT HYPERACTIVITY 05/13/2008 SAINZ DO, SHAY K 311 DEPRESSION 05/13/2008 SAINZ DO, SHAY K 314.00 ATTENTION DEFICIT DISORDER WITHOUT HYPERACTIVITY 05/13/2008 311 DEPRESSION 05/13/2008 314.00 ATTENTION DEFICIT DISORDER WITHOUT HYPERACTIVITY 05/13/2008 SAINZ DO, SHAY K 311 DEPRESSION 05/13/2008 SAINZ DO, SHAY K 314.00 ATTENTION DEFICIT DISORDER WITHOUT HYPERACTIVITY 05/13/2008 311 DEPRESSION 05/13/2008 314.00 ATTENTION DEFICIT DISORDER WITHOUT HYPERACTIVITY 05/13/2008 311 DEPRESSION 05/13/2008 314.00 ATTENTION DEFICIT DISORDER WITHOUT HYPERACTIVITY 05/13/2008 CASSIDY GUSTAFSON PHD 311 DEPRESSION 05/13/2008 CASSIDY GUSTAFSON PHD 314.00 ATTENTION DEFICIT DISORDER WITHOUT HYPERACTIVITY 05/13/2008 SAINZ DO, SHAY K 311 DEPRESSION 05/13/2008 SAINZ DO, SHAY K 314.00 ATTENTION DEFICIT DISORDER WITHOUT HYPERACTIVITY 05/13/2008 DOWELL LSCS, PATRICE A 311 DEPRESSION 05/13/2008 DOWELL CS, PATRICE A 314.00 ATTENTION DEFICIT DISORDER WITHOUT HYPERACTIVITY 05/13/2008 DOWELL LSCS, PATRICE A 311 DEPRESSION 05/13/2008 DOWELL CS, PATRICE A 314.00 ATTENTION DEFICIT DISORDER WITHOUT HYPERACTIVITY 05/13/2008 DOWELL LSCS, PATRICE A 311 DEPRESSION 05/13/2008 DOWELL CS, PATRICE A 314.00 ATTENTION DEFICIT DISORDER WITHOUT HYPERACTIVITY 05/13/2008 [facility], OTTONIEL A 311 DEPRESSION 05/13/2008 [facility] CONCI[facility]GE, OTTONIEL A 314.00 ATTENTION DEFICIT DISORDER WITHOUT HYPERACTIVITY 05/13/2008 DOWELL LSCS, PATRICE A 311 DEPRESSION 05/13/2008 DOWELL LSCS, PATRICE A 314.00 ATTENTION DEFICIT DISORDER WITHOUT HYPERACTIVITY 05/13/2008 DOWELL LSCS, PATRICE A 311 DEPRESSION 05/13/2008 DOWELL LSCS, PATRICE A 314.00 ATTENTION DEFICIT DISORDER WITHOUT HYPERACTIVITY 05/13/2008 [facility], OTTONIEL A 311 DEPRESSION 05/13/2008 [facility] CONCI[facility]GE, OTTONIEL A 314.00 ATTENTION DEFICIT DISORDER WITHOUT HYPERACTIVITY 05/13/2008 [facility], BENSON R 311 DEPRESSION 05/13/2008 [facility], BENSON R 314.00 ATTENTION DEFICIT DISORDER WITHOUT HYPERACTIVITY 05/13/2008 DOWELL LSCS, PATRICE A 311 DEPRESSION 05/13/2008 DOWELL LSCS, PATRICE A 314.00 ATTENTION DEFICIT DISORDER WITHOUT HYPERACTIVITY 05/13/2008 [facility], BENSON R 311 DEPRESSION 05/13/2008 [facility], BENSON R 314.00 ATTENTION DEFICIT DISORDER WITHOUT HYPERACTIVITY 05/13/2008 [facility], BENSON R 311 DEPRESSION 05/13/2008 [facility], BENSON R 314.00 ATTENTION DEFICIT DISORDER WITHOUT HYPERACTIVITY 05/13/2008 SAI PEREZ MD 311 DEPRESSION 05/13/2008 SAI PEREZ MD 314.00 ATTENTION DEFICIT DISORDER WITHOUT HYPERACTIVITY 05/13/2008 SAINZ DO, SHAY K 311 DEPRESSION 05/13/2008 SAINZ DO, SHAY K 314.00 ATTENTION DEFICIT DISORDER WITHOUT HYPERACTIVITY 05/13/2008 [facility], LAZARA A 311 DEPRESSION 05/13/2008 [facility], LAZARA A 314.00 ATTENTION DEFICIT DISORDER WITHOUT HYPERACTIVITY 05/13/2008 SAINZ DO, SHAY K 311 DEPRESSION 05/13/2008 SAINZ DO, SHAY K 314.00 ATTENTION DEFICIT DISORDER WITHOUT HYPERACTIVITY 05/13/2008 [facility], LAZARA A 311 DEPRESSION 05/13/2008 [facility], LAZARA A 314.00 ATTENTION DEFICIT DISORDER WITHOUT HYPERACTIVITY 05/13/2008 [facility], LAZARA A 311 DEPRESSION 05/13/2008 [facility], LAZARA A 314.00 ATTENTION DEFICIT DISORDER WITHOUT HYPERACTIVITY 05/13/2008 SAINZ DO, SHAY K 311 DEPRESSION 05/13/2008 SAINZ DO, SHAY K 314.00 ATTENTION DEFICIT DISORDER WITHOUT HYPERACTIVITY 05/13/2008 [facility] MIKE T 311 DEPRESSION 05/13/2008 [facility] MIKE T 314.00 ATTENTION DEFICIT DISORDER WITHOUT HYPERACTIVITY 05/13/2008 SAINZ DO, SHAY K 311 DEPRESSION 05/13/2008 SAINZ DO, SHAY K 314.00 ATTENTION DEFICIT DISORDER WITHOUT HYPERACTIVITY 05/13/2008 SAINZ DO, SHAY K 311 DEPRESSION 05/13/2008 SAINZ DO, SHAY K 314.00 ATTENTION DEFICIT DISORDER WITHOUT HYPERACTIVITY 05/13/2008 SAINZ DO, SHAY K 311 DEPRESSION 05/13/2008 SAINZ DO, SHAY K 314.00 ATTENTION DEFICIT DISORDER WITHOUT HYPERACTIVITY 05/13/2008 SAINZ DO, SHAY K 311 DEPRESSION 05/13/2008 SAINZ DO, SHAY K 314.00 ATTENTION DEFICIT DISORDER WITHOUT HYPERACTIVITY 05/13/2008 SAINZ DO, SHAY K 311 DEPRESSION 05/13/2008 SAINZ DO, SHAY K 314.00 ATTENTION DEFICIT DISORDER WITHOUT HYPERACTIVITY 05/13/2008 SAINZ DO, SHAY K 311 DEPRESSION 05/13/2008 SAINZ DO, SHAY K 314.00 ATTENTION DEFICIT DISORDER WITHOUT HYPERACTIVITY 05/13/2008 SAINZ DO, SHAY K 311 DEPRESSION 05/13/2008 SAINZ DO, SHAY K 314.00 ATTENTION DEFICIT DISORDER WITHOUT HYPERACTIVITY 05/13/2008 SAINZ DO, SHAY K 311 DEPRESSION 05/13/2008 SAINZ DO, SHAY K 314.00 ATTENTION DEFICIT DISORDER WITHOUT HYPERACTIVITY 05/13/2008 ROBERTO FIGUEROA MD N 311 DEPRESSION 05/13/2008 ROBERTO FIGUEROA MD N 314.00 ATTENTION DEFICIT DISORDER WITHOUT HYPERACTIVITY 05/13/2008 [facility], LAZARA A 311 DEPRESSION 05/13/2008 [facility], LAZARA A 314.00 ATTENTION DEFICIT DISORDER WITHOUT HYPERACTIVITY 05/13/2008 [facility], LAZARA A 311 DEPRESSION 05/13/2008 [facility], LAZARA A 314.00 ATTENTION DEFICIT DISORDER WITHOUT HYPERACTIVITY 05/13/2008 SAINZ DO, SHAY K 311 DEPRESSION 05/13/2008 SAINZ DO, SHAY K 314.00 ATTENTION DEFICIT DISORDER WITHOUT HYPERACTIVITY 05/13/2008 [facility], BENSON R 311 DEPRESSION 05/13/2008 [facility], BENSON R 314.00 ATTENTION DEFICIT DISORDER WITHOUT HYPERACTIVITY 05/13/2008 [facility], LAZARA A 311 DEPRESSION 05/13/2008 [facility], LAZARA A 314.00 ATTENTION DEFICIT DISORDER WITHOUT HYPERACTIVITY 05/13/2008 SAINZ DO, SHAY K 311 DEPRESSION 05/13/2008 SAINZ DO, SHAY K 314.00 ATTENTION DEFICIT DISORDER WITHOUT HYPERACTIVITY 05/13/2008 [facility], BENSON R 311 DEPRESSION 05/13/2008 [facility], BENSON R 314.00 ATTENTION DEFICIT DISORDER WITHOUT HYPERACTIVITY 05/13/2008 [facility], LAZARA A 311 DEPRESSION 05/13/2008 [facility], LAZARA A 314.00 ATTENTION DEFICIT DISORDER WITHOUT HYPERACTIVITY 05/13/2008 [facility], BENSON R 311 DEPRESSION 05/13/2008 [facility], BENSON R 314.00 ATTENTION DEFICIT DISORDER WITHOUT HYPERACTIVITY 06/16/2008 300.00 ANXIETY DISORDER NOS 06/16/2008 300.00 ANXIETY DISORDER NOS 06/16/2008 300.00 ANXIETY DISORDER NOS 06/16/2008 SAINZ DO, SHAY K 300.00 ANXIETY DISORDER NOS 06/16/2008 300.00 ANXIETY DISORDER NOS 06/16/2008 SAINZ DO, SHAY K 300.00 ANXIETY DISORDER NOS 06/16/2008 300.00 ANXIETY DISORDER NOS 06/16/2008 300.00 ANXIETY DISORDER NOS 06/16/2008 SJ FINK, CASSIDY Castillo 300.00 ANXIETY DISORDER NOS 06/16/2008 SAINZ DO, SHAY K 300.00 ANXIETY DISORDER NOS 06/16/2008 [facility], PATRICE A 300.00 ANXIETY DISORDER NOS 06/16/2008 DOWELL CS, PATRICE A 300.00 ANXIETY DISORDER NOS 06/16/2008 [facility] 300.00 ANXIETY DISORDER NOS 06/16/2008 COREY BREWERN, OTTONIEL A 300.00 ANXIETY DISORDER NOS 06/16/2008 [facility] 300.00 ANXIETY DISORDER NOS 06/16/2008 [facility], PATRICE A 300.00 ANXIETY DISORDER NOS 06/16/2008 COREY BREWERN, OTTONIEL A 300.00 ANXIETY DISORDER NOS 06/16/2008 MEL[facility] LAN, BENSON R 300.00 ANXIETY DISORDER NOS 06/16/2008 [facility], PATRICE A 300.00 ANXIETY DISORDER NOS 06/16/2008 MELANIE LAN, BENSON R 300.00 ANXIETY DISORDER NOS 06/16/2008 MELANIE LAN, BENSON R 300.00 ANXIETY DISORDER NOS 06/16/2008 SAI PEREZ MD 300.00 ANXIETY DISORDER NOS 06/16/2008 SAINZ DO, SHAY K 300.00 ANXIETY DISORDER NOS 06/16/2008 [facility] LAN, LAZARA A 300.00 ANXIETY DISORDER NOS 06/16/2008 SAINZ DO, SHAY K 300.00 ANXIETY DISORDER NOS 06/16/2008 [facility] LAN, LAZARA A 300.00 ANXIETY DISORDER NOS 06/16/2008 [facility] LAN, LAZARA A 300.00 ANXIETY DISORDER NOS 06/16/2008 SANIZ DO, SHAY K 300.00 ANXIETY DISORDER NOS 06/16/2008 MIKE ANDERSON APRN 300.00 ANXIETY DISORDER NOS 06/16/2008 SAINZ DO, SHAY K 300.00 ANXIETY DISORDER NOS 06/16/2008 SAINZ DO, SHAY K 300.00 ANXIETY DISORDER NOS 06/16/2008 SAINZ DO, SHAY K 300.00 ANXIETY DISORDER NOS 06/16/2008 SAINZ DO, SHAY K 300.00 ANXIETY DISORDER NOS 06/16/2008 SAINZ DO, SHAY K 300.00 ANXIETY DISORDER NOS 06/16/2008 SAINZ DO, SHAY K 300.00 ANXIETY DISORDER NOS 06/16/2008 SAINZ DO, SHAY K 300.00 ANXIETY DISORDER NOS 06/16/2008 SAINZ DO, SHAY K 300.00 ANXIETY DISORDER NOS 06/16/2008 ROBERTO FIGUEROA MD N 300.00 ANXIETY DISORDER NOS 06/16/2008 [facility], LAZARA A 300.00 ANXIETY DISORDER NOS 06/16/2008 [facility], LAZARA A 300.00 ANXIETY DISORDER NOS 06/16/2008 SAINZ DO, SHAY K 300.00 ANXIETY DISORDER NOS 06/16/2008 [facility], BENSON R 300.00 ANXIETY DISORDER NOS 06/16/2008 [facility], LAZARA A 300.00 ANXIETY DISORDER NOS 06/16/2008 SAINZ DO, SHAY K 300.00 ANXIETY DISORDER NOS 06/16/2008 [facility], BENSON R 300.00 ANXIETY DISORDER NOS 06/16/2008 [facility], LAZARA A 300.00 ANXIETY DISORDER NOS 06/16/2008 [facility], BENSON R 300.00 ANXIETY DISORDER NOS 07/07/2008 278.02 Overweight 07/07/2008 V20.2 Preventive Medicine New Patient Evaluation Childhood 09-2907/07/2008 278.02 Overweight 07/07/2008 V20.2 Preventive Medicine New Patient Evaluation Childhood 09-2907/07/2008 278.02 Overweight 07/07/2008 V20.2 Preventive Medicine New Patient Evaluation Childhood -07/07/2008 SHAY SAINZ DO 278.02 Overweight 07/07/2008 SHAY SAINZ DO V20.2 Preventive Medicine New Patient Evaluation Childhood 09-2907/07/2008 278.02 Overweight 07/07/2008 V20.2 Preventive Medicine New Patient Evaluation Childhood -07/07/2008 SHAY SAINZ DO 278.02 Overweight 07/07/2008 SHAY SAINZ DO V20.2 Preventive Medicine New Patient Evaluation Childhood -07/07/2008 278.02 Overweight 07/07/2008 V20.2 Preventive Medicine New Patient Evaluation Childhood -07/07/2008 278.02 Overweight 07/07/2008 V20.2 Preventive Medicine New Patient Evaluation Childhood 5-11 07/07/2008 SJ PHD, CASSIDY Castillo 278.02 Overweight 07/07/2008 SJ FINK, CASSIDY Castillo V20.2 Preventive Medicine New Patient Evaluation Childhood 09-2907/07/2008 SAINZ DOSHAY 278.02 Overweight 07/07/2008 SAINZ DOSHAY V20.2 Preventive Medicine New Patient Evaluation Childhood 09-2907/07/2008 [facility], PATRICE A 278.02 Overweight 07/07/2008 [facility], PATRICE A V20.2 Preventive Medicine New Patient Evaluation Childhood 09-2907/07/2008 [facility], PATRICE A 278.02 Overweight 07/07/2008 [facility], PATRICE A V20.2 Preventive Medicine New Patient Evaluation Childhood 09-2907/07/2008 [facility], PATRICE A 278.02 Overweight 07/07/2008 [facility], PATRICE A V20.2 Preventive Medicine New Patient Evaluation Childhood 09-2907/07/2008 OTTONIEL NICOLE APRN A 278.02 Overweight 07/07/2008 OTTONIEL NICOLE APRN A V20.2 Preventive Medicine New Patient Evaluation Childhood 09-2907/07/2008 [facility], PATRICE A 278.02 Overweight 07/07/2008 [facility], PATRICE A V20.2 Preventive Medicine New Patient Evaluation Childhood 09-2907/07/2008 [facility], PATRICE A 278.02 Overweight 07/07/2008 [facility], PATRICE A V20.2 Preventive Medicine New Patient Evaluation Childhood 09-2907/07/2008 OTTONIEL NICOLE APRN A 278.02 Overweight 07/07/2008 OTTONIEL NICOLE APRN A V20.2 Preventive Medicine New Patient Evaluation Childhood 09-2907/07/2008 BENSON NAVARRO APRN R 278.02 Overweight 07/07/2008 BENSON NAVARRO APRN R V20.2 Preventive Medicine New Patient Evaluation Childhood 09-2907/07/2008 [facility], PATRICE A 278.02 Overweight 07/07/2008 [facility], PATRICE A V20.2 Preventive Medicine New Patient Evaluation Childhood 09-2907/07/2008 BENSON NAVARRO APRN R 278.02 Overweight 07/07/2008 BENSON NAVARRO APRN R V20.2 Preventive Medicine New Patient Evaluation Childhood 5-07/07/2008 [facility] CONCIERGEBENSON R 278.02 Overweight 07/07/2008 BENSON NAVARRO APRN R V20.2 Preventive Medicine New Patient Evaluation Childhood -07/07/2008 SAI PEREZ MD 278.02 Overweight 07/07/2008 SAI PEREZ MD V20.2 Preventive Medicine New Patient Evaluation Childhood -07/07/2008 SHAY SAINZ DO K 278.02 Overweight 07/07/2008 TAWNY SAINZ DOA K V20.2 Preventive Medicine New Patient Evaluation Childhood -07/07/2008 LINHLAZARA Fernandez APRN A 278.02 Overweight 07/07/2008 LINHLAZARA Fernandez APRN A V20.2 Preventive Medicine New Patient Evaluation Childhood -07/07/2008 SHAY SAINZ DO 278.02 Overweight 07/07/2008 TAWNY SAINZ DOA K V20.2 PREVENTIVE MEDICINE NEW PATIENT EVALUATION CHILDHOOD -07/07/2008 LAZARA MELTON APRN A 278.02 Overweight 07/07/2008 LINHLAZARA Fernandez APRN A V20.2 PREVENTIVE MEDICINE NEW PATIENT EVALUATION CHILDHOOD -07/07/2008 LINHLAZARA Fernandez APRN A 278.02 Overweight 07/07/2008 LINHLAZARA Fernandez APRN A V20.2 PREVENTIVE MEDICINE NEW PATIENT EVALUATION CHILDHOOD -07/07/2008 SHAY SAINZ DO K 278.02 Overweight 07/07/2008 TAWNY SAINZ DOA K V20.2 PREVENTIVE MEDICINE NEW PATIENT EVALUATION CHILDHOOD -07/07/2008 MIKE ANDERSON APRN 278.02 Overweight 07/07/2008 MIKE ANDERSON APRN V20.2 PREVENTIVE MEDICINE NEW PATIENT EVALUATION CHILDHOOD -07/07/2008 SHAY SAINZ DO K 278.02 Overweight 07/07/2008 TAWNY SAINZ DOA K V20.2 PREVENTIVE MEDICINE NEW PATIENT EVALUATION CHILDHOOD 09-2907/07/2008 TAWNY SAINZ DOA K 278.02 Overweight 07/07/2008 TAWNY SAINZ DOA K V20.2 PREVENTIVE MEDICINE NEW PATIENT EVALUATION CHILDHOOD -07/07/2008 TAWNY SAINZ DOA K 278.02 Overweight 07/07/2008 TAWNY SAINZ DOA K V20.2 PREVENTIVE MEDICINE NEW PATIENT EVALUATION CHILDHOOD -07/07/2008 SAINZ DO, SHAY K 278.02 Overweight 07/07/2008 SAINZ DOTAWNYA K V20.2 PREVENTIVE MEDICINE NEW PATIENT EVALUATION CHILDHOOD 5-07/07/2008 SAINZ DOTAWNYA K 278.02 Overweight 07/07/2008 SAINZ DOTAWNYA K V20.2 PREVENTIVE MEDICINE NEW PATIENT EVALUATION CHILDHOOD -07/07/2008 SAINZ DOTAWNYA K 278.02 Overweight 07/07/2008 SAINZ DOTAWNYA K V20.2 PREVENTIVE MEDICINE NEW PATIENT EVALUATION CHILDHOOD -07/07/2008 SAINZ DOTAWNYA K 278.02 Overweight 07/07/2008 SAINZ DOTAWNYA K V20.2 PREVENTIVE MEDICINE NEW PATIENT EVALUATION CHILDHOOD -07/07/2008 SAINZ DOTAWNYA K 278.02 Overweight 07/07/2008 TAWNY SAINZ DOA K V20.2 PREVENTIVE MEDICINE NEW PATIENT EVALUATION CHILDHOOD -07/07/2008 HENRY CONROY, ROBERTO N 278.02 Overweight 07/07/2008 ROBERTO FIGUEROA MD V20.2 PREVENTIVE MEDICINE NEW PATIENT EVALUATION CHILDHOOD -07/07/2008 LAZARA MELTON APRN A 278.02 Overweight 07/07/2008 LAZARA MELTON APRN A V20.2 PREVENTIVE MEDICINE NEW PATIENT EVALUATION CHILDHOOD -07/07/2008 LAZARA MELTON APRN A 278.02 Overweight 07/07/2008 LAZARA MELTON APRN A V20.2 PREVENTIVE MEDICINE NEW PATIENT EVALUATION CHILDHOOD -07/07/2008 SHAY SAINZ DO K 278.02 Overweight 07/07/2008 SHAY SAINZ DO K V20.2 PREVENTIVE MEDICINE NEW PATIENT EVALUATION CHILDHOOD -07/07/2008 BENSON NAVARRO APRN R 278.02 Overweight 07/07/2008 BENSON NAVARRO APRN V20.2 PREVENTIVE MEDICINE NEW PATIENT EVALUATION CHILDHOOD -07/07/2008 LAZARA MELTON APRN A 278.02 Overweight 07/07/2008 LAZARA MELTON APRN A V20.2 PREVENTIVE MEDICINE NEW PATIENT EVALUATION CHILDHOOD -07/07/2008 SHAY SAINZ DO K 278.02 Overweight 07/07/2008 SHAY SAINZ DO K V20.2 PREVENTIVE MEDICINE NEW PATIENT EVALUATION CHILDHOOD -07/07/2008 BENSON NAVARRO APRN R 278.02 Overweight 07/07/2008 RALPH NAVARRO APRNINA R V20.2 PREVENTIVE MEDICINE NEW PATIENT EVALUATION CHILDHOOD 5-07/07/2008 LAZARA MELTON APRN A 278.02 Overweight 07/07/2008 LAZARA MELTON APRN A V20.2 PREVENTIVE MEDICINE NEW PATIENT EVALUATION CHILDHOOD 5-07/07/2008 RALPH NAVARRO APRNINA R 278.02 Overweight 07/07/2008 RALPH NAVARRO APRNINA R V20.2 PREVENTIVE MEDICINE NEW PATIENT EVALUATION CHILDHOOD 5-07/30/2008 719.41 Joint Pain, Localized In The Shoulder 07/30/2008 719.41 Joint Pain, Localized In The Shoulder 07/30/2008 719.41 Joint Pain, Localized In The Shoulder 07/30/2008 SHAY SAINZ DO K 719.41 Joint Pain, Localized In The Shoulder 07/30/2008 719.41 Joint Pain, Localized In The Shoulder 07/30/2008 SHAY SAINZ DO K 719.41 Joint Pain, Localized In The Shoulder 07/30/2008 719.41 Joint Pain, Localized In The Shoulder 07/30/2008 719.41 Joint Pain, Localized In The Shoulder 07/30/2008 [facility] FINK, CASSIDY Castillo 719.41 Joint Pain, Localized In The Shoulder 07/30/2008 SHAY SAINZ DO K 719.41 Joint Pain, Localized In The Shoulder 07/30/2008 [facility], PATRICE A 719.41 Joint Pain, Localized In The Shoulder 07/30/2008 [facility], PATRICE A 719.41 Joint Pain, Localized In The Shoulder 07/30/2008 [facility], PATRICE A 719.41 Joint Pain, Localized In The Shoulder 07/30/2008 OTTONIEL NICOLE APRN A 719.41 Joint Pain, Localized In The Shoulder 07/30/2008 [facility], PATRICE A 719.41 Joint Pain, Localized In The Shoulder 07/30/2008 DOWELL [facility], PATRICE A 719.41 Joint Pain, Localized In The Shoulder 07/30/2008 OTTONIEL NICOLE APRN A 719.41 Joint Pain, Localized In The Shoulder 07/30/2008 BENSON NAVARRO APRN R 719.41 Joint Pain, Localized In The Shoulder 07/30/2008 DOWELL [facility], PATRICE A 719.41 Joint Pain, Localized In The Shoulder 07/30/2008 BENSON NAVARRO APRN R 719.41 Joint Pain, Localized In The Shoulder 07/30/2008 BENSON NAVARRO APRN R 719.41 Joint Pain, Localized In The Shoulder 07/30/2008 SAI PEREZ MD 719.41 Joint Pain, Localized In The Shoulder 07/30/2008 SAINZ DO, SHAY K 719.41 Joint Pain, Localized In The Shoulder 07/30/2008 [facility], LAZARA A 719.41 Joint Pain, Localized In The Shoulder 07/30/2008 SAINZ DO, SHAY K 719.41 Joint Pain, Localized In The Shoulder 07/30/2008 [facility], LAZARA A 719.41 Joint Pain, Localized In The Shoulder 07/30/2008 [facility], LAZARA A 719.41 Joint Pain, Localized In The Shoulder 07/30/2008 SAINZ DO, SHAY K 719.41 Joint Pain, Localized In The Shoulder 07/30/2008 MIKE ANDERSON APRN 719.41 Joint Pain, Localized In The Shoulder 07/30/2008 SAINZ DO, SHAY K 719.41 Joint Pain, Localized In The Shoulder 07/30/2008 SAINZ DO, SHAY K 719.41 Joint Pain, Localized In The Shoulder 07/30/2008 SAINZ DO, SHAY K 719.41 Joint Pain, Localized In The Shoulder 07/30/2008 SAINZ DO, SHAY K 719.41 Joint Pain, Localized In The Shoulder 07/30/2008 SAINZ DO, SHAY K 719.41 Joint Pain, Localized In The Shoulder 07/30/2008 SAINZ DO, SHAY K 719.41 Joint Pain, Localized In The Shoulder 07/30/2008 SAINZ DO, SHAY K 719.41 Joint Pain, Localized In The Shoulder 07/30/2008 SAINZ DO, SHAY K 719.41 Joint Pain, Localized In The Shoulder 07/30/2008 ROBERTO FIGUEROA MD 719.41 Joint Pain, Localized In The Shoulder 07/30/2008 [facility], LAZARA A 719.41 Joint Pain, Localized In The Shoulder 07/30/2008 [facility], LAZARA A 719.41 Joint Pain, Localized In The Shoulder 07/30/2008 SAINZ DO, SHAY K 719.41 Joint Pain, Localized In The Shoulder 07/30/2008 [facility], BENSON R 719.41 Joint Pain, Localized In The Shoulder 07/30/2008 [facility], LAZARA A 719.41 Joint Pain, Localized In The Shoulder 07/30/2008 SHAY SAINZ DO K 719.41 Joint Pain, Localized In The Shoulder 07/30/2008 [facility], BENSON R 719.41 Joint Pain, Localized In The Shoulder 07/30/2008 [facility], LAZARA A 719.41 Joint Pain, Localized In The Shoulder 07/30/2008 [facility], BENSON R 719.41 Joint Pain, Localized In The Shoulder 09/08/2008 V05.8 Gardasil, Shingles, Other Specified Disease 09/08/2008 V05.8 Gardasil, Shingles, Other Specified Disease 09/08/2008 V05.8 Gardasil, Shingles, Other Specified Disease 09/08/2008 SHAY SAINZ DO V05.8 Gardasil, Shingles, Other Specified Disease 09/08/2008 V05.8 Gardasil, Shingles, Other Specified Disease 09/08/2008 SHAY SAINZ DO V05.8 Gardasil, Shingles, Other Specified Disease 09/08/2008 V05.8 Gardasil, Shingles, Other Specified Disease 09/08/2008 V05.8 Gardasil, Shingles, Other Specified Disease 09/08/2008 SJ FINK, CASSIDY Castillo V05.8 Gardasil, Shingles, Other Specified Disease 09/08/2008 SHAY SAINZ DO V05.8 Gardasil, Shingles, Other Specified Disease 09/08/2008 [facility] V05.8 Gardasil, Shingles, Other Specified Disease 09/08/2008 DELMER GAMAPATRICE V05.8 Gardasil, Shingles, Other Specified Disease 09/08/2008 DELMER GAMA, PATRICE Gonzalez V05.8 Gardasil, Shingles, Other Specified Disease 09/08/2008 OTTONIEL NICOLE APRN V05.8 Gardasil, Shingles, Other Specified Disease 09/08/2008 [facility] V05.8 Gardasil, Shingles, Other Specified Disease 09/08/2008 [facility], PATRICE A V05.8 Gardasil, Shingles, Other Specified Disease 09/08/2008 COREY BREWERN, OTTONIEL Gonzalez V05.8 Gardasil, Shingles, Other Specified Disease 09/08/2008 [facility], BENSON R V05.8 Gardasil, Shingles, Other Specified Disease 09/08/2008 DOWELL [facility], PATRICE Gonzalez V05.8 Gardasil, Shingles, Other Specified Disease 09/08/2008 [facility], BENSON R V05.8 Gardasil, Shingles, Other Specified Disease 09/08/2008 [facility], BENSON R V05.8 Gardasil, Shingles, Other Specified Disease 09/08/2008 SAI PEREZ MD V05.8 Gardasil, Shingles, Other Specified Disease 09/08/2008 EMELI DO, SHAY Monroe V05.8 Gardasil, Shingles, Other Specified Disease 09/08/2008 [facility], LAZARA Gonzalez V05.8 Gardasil, Shingles, Other Specified Disease 09/08/2008 EMELI DO, SHAY Monroe V05.8 Gardasil, Shingles, Other Specified Disease 09/08/2008 [facility], LAZARA Gonzalez V05.8 Gardasil, Shingles, Other Specified Disease 09/08/2008 [facility], LAZARA Gonzalez V05.8 Gardasil, Shingles, Other Specified Disease 09/08/2008 SHAY SAINZ DO V05.8 Gardasil, Shingles, Other Specified Disease 09/08/2008 MIKE ANDERSON APRN V05.8 Gardasil, Shingles, Other Specified Disease 09/08/2008 SAINZ DO, SHAY Monroe V05.8 Gardasil, Shingles, Other Specified Disease 09/08/2008 SAINZ DOSHAY V05.8 Gardasil, Shingles, Other Specified Disease 09/08/2008 SAINZ DO, SHAY Monroe V05.8 Gardasil, Shingles, Other Specified Disease 09/08/2008 SAINZ DO, SHAY Monroe V05.8 Gardasil, Shingles, Other Specified Disease 09/08/2008 SAINZ DO, SHAY K V05.8 Gardasil, Shingles, Other Specified Disease 09/08/2008 SAINZ DO, SHAY K V05.8 Gardasil, Shingles, Other Specified Disease 09/08/2008 SAINZ DO, SHAY K V05.8 Gardasil, Shingles, Other Specified Disease 09/08/2008 SAINZ DO, SHAY K V05.8 Gardasil, Shingles, Other Specified Disease 09/08/2008 ROBERTO FIGUEROA MD V05.8 Gardasil, Shingles, Other Specified Disease 09/08/2008 [facility], LAZARA A V05.8 Gardasil, Shingles, Other Specified Disease 09/08/2008 [facility], LAZARA A V05.8 Gardasil, Shingles, Other Specified Disease 09/08/2008 SAINZ DO, SHAY K V05.8 Gardasil, Shingles, Other Specified Disease 09/08/2008 [facility], BENSON R V05.8 Gardasil, Shingles, Other Specified Disease 09/08/2008 [facility], LAZARA A V05.8 Gardasil, Shingles, Other Specified Disease 09/08/2008 SAINZ DOTAWNYA K V05.8 Gardasil, Shingles, Other Specified Disease 09/08/2008 [facility], BENSON R V05.8 Gardasil, Shingles, Other Specified Disease 09/08/2008 [facility], LAZARA A V05.8 Gardasil, Shingles, Other Specified Disease 09/08/2008 [facility], BENSON R V05.8 Gardasil, Shingles, Other Specified Disease 04/15/2009 296.00 BIPOLAR DISORDER 04/15/2009 V58.69 taking high- risk medication 04/15/2009 296.00 BIPOLAR DISORDER 04/15/2009 V58.69 taking high- risk medication 04/15/2009 296.00 BIPOLAR DISORDER 04/15/2009 V58.69 taking high- risk medication 04/15/2009 SHAY SAINZ DO K 296.00 BIPOLAR DISORDER 04/15/2009 SAINZ SHAY HUGHES V58.69 taking high-risk medication 04/15/2009 296.00 BIPOLAR DISORDER 04/15/2009 V58.69 taking high- risk medication 04/15/2009 SAINZ DOTAWNYA K 296.00 BIPOLAR DISORDER 04/15/2009 SAINZ DO SHAY K V58.69 taking high-risk medication 04/15/2009 296.00 BIPOLAR DISORDER 04/15/2009 V58.69 taking high- risk medication 04/15/2009 296.00 BIPOLAR DISORDER 04/15/2009 V58.69 taking high- risk medication 04/15/2009 SJ FINK, CASSIDY Castillo 296.00 BIPOLAR DISORDER 04/15/2009 SJ FINK, CASSIDY Castillo V58.69 taking high-risk medication 04/15/2009 SAINZ DOTAWNYA K 296.00 BIPOLAR DISORDER 04/15/2009 SAINZ DO SHAY K V58.69 taking high-risk medication 04/15/2009 [facility], PATRICE A 296.00 BIPOLAR DISORDER 04/15/2009 [facility], PATRICE A V58.69 taking high-risk medication 04/15/2009 [facility], PATRICE A 296.00 BIPOLAR DISORDER 04/15/2009 [facility], PATRICE A V58.69 taking high-risk medication 04/15/2009 [facility], PATRICE A 296.00 BIPOLAR DISORDER 04/15/2009 [facility], PATRICE A V58.69 taking high-risk medication 04/15/2009 [facility] OTTONIEL A 296.00 BIPOLAR DISORDER 04/15/2009 [facility], OTTONIEL A V58.69 taking high-risk medication 04/15/2009 [facility], PATRICE A 296.00 BIPOLAR DISORDER 04/15/2009 [facility], PATRICE A V58.69 taking high-risk medication 04/15/2009 [facility], PATRICE A 296.00 BIPOLAR DISORDER 04/15/2009 [facility], PATRICE A V58.69 taking high-risk medication 04/15/2009 [facility], OTTONIEL A 296.00 BIPOLAR DISORDER 04/15/2009 [facility], OTTONIEL A V58.69 taking high-risk medication 04/15/2009 [facility], BENSON R 296.00 BIPOLAR DISORDER 04/15/2009 [facility], BENSON R V58.69 taking high-risk medication 04/15/2009 [facility], PATRICE A 296.00 BIPOLAR DISORDER 04/15/2009 [facility], PATRICE A V58.69 taking high-risk medication 04/15/2009 [facility], BENSON R 296.00 BIPOLAR DISORDER 04/15/2009 [facility], BENSON R V58.69 taking high-risk medication 04/15/2009 [facility], BENSON R 296.00 BIPOLAR DISORDER 04/15/2009 [facility], BENSON R V58.69 taking high-risk medication 04/15/2009 SAI PEREZ MD 296.00 BIPOLAR DISORDER 04/15/2009 SAI PEREZ MD V58.69 taking high-risk medication 04/15/2009 SAINZ DO, SHAY K 296.00 BIPOLAR DISORDER 04/15/2009 SAINZ DO, SHAY K V58.69 taking high-risk medication 04/15/2009 [facility], LAZARA A 296.00 BIPOLAR DISORDER 04/15/2009 [facility], LAZARA A V58.69 taking high-risk medication 04/15/2009 SAINZ DO, SHAY K 296.00 BIPOLAR DISORDER 04/15/2009 SAINZ DO, SHAY K V58.69 taking high-risk medication 04/15/2009 [facility], LAZARA A 296.00 BIPOLAR DISORDER 04/15/2009 [facility], LAZARA A V58.69 taking high-risk medication 04/15/2009 [facility], LAZARA A 296.00 BIPOLAR DISORDER 04/15/2009 [facility], LAZARA A V58.69 taking high-risk medication 04/15/2009 SAINZ DO, SHAY K 296.00 BIPOLAR DISORDER 04/15/2009 SAINZ DO, SHAY K V58.69 taking high-risk medication 04/15/2009 MIKE ANDERSON APRN T 296.00 BIPOLAR DISORDER 04/15/2009 JUSTIN LAN MIKE T V58.69 taking high-risk medication 04/15/2009 SAINZ DO, SHAY K 296.00 BIPOLAR DISORDER 04/15/2009 SAINZ DO, SHAY K V58.69 taking high-risk medication 04/15/2009 SAINZ DO, SHAY K 296.00 BIPOLAR DISORDER 04/15/2009 SAINZ DO, SHAY K V58.69 taking high-risk medication 04/15/2009 SAINZ DO, SHAY K 296.00 BIPOLAR DISORDER 04/15/2009 SAINZ DO, SHAY K V58.69 taking high-risk medication 04/15/2009 SAINZ DO, SHAY K 296.00 BIPOLAR DISORDER 04/15/2009 SAINZ DO, SHAY K V58.69 taking high-risk medication 04/15/2009 SAINZ DO, SHAY K 296.00 BIPOLAR DISORDER 04/15/2009 SAINZ DO, SHAY K V58.69 taking high-risk medication 04/15/2009 SAINZ DO, SHAY K 296.00 BIPOLAR DISORDER 04/15/2009 SAINZ DO, SHAY K V58.69 taking high-risk medication 04/15/2009 SAINZ DO, SHAY K 296.00 BIPOLAR DISORDER 04/15/2009 SAINZ DO, SHAY K V58.69 taking high-risk medication 04/15/2009 SAINZ DO, SHAY K 296.00 BIPOLAR DISORDER 04/15/2009 SAINZ DO, SHAY K V58.69 taking high-risk medication 04/15/2009 ROBERTO FIGUEROA MD N 296.00 BIPOLAR DISORDER 04/15/2009 ROBERTO FIGUEROA MD N V58.69 taking high-risk medication 04/15/2009 [facility], LAZARA A 296.00 BIPOLAR DISORDER 04/15/2009 [facility], LAZARA A V58.69 taking high-risk medication 04/15/2009 [facility], LAZARA A 296.00 BIPOLAR DISORDER 04/15/2009 [facility], LAZARA A V58.69 taking high-risk medication 04/15/2009 SAINZ DO, SHAY K 296.00 BIPOLAR DISORDER 04/15/2009 SAINZ DO, SHAY K V58.69 taking high-risk medication 04/15/2009 [facility], BENSON R 296.00 BIPOLAR DISORDER 04/15/2009 [facility], BENSON R V58.69 taking high-risk medication 04/15/2009 [facility], LAZARA A 296.00 BIPOLAR DISORDER 04/15/2009 [facility], LAZARA A V58.69 taking high-risk medication 04/15/2009 SAINZ DO, SHAY K 296.00 BIPOLAR DISORDER 04/15/2009 SAINZ DO, SHAY K V58.69 taking high-risk medication 04/15/2009 [facility], BENSON R 296.00 BIPOLAR DISORDER 04/15/2009 [facility], BENSON R V58.69 taking high-risk medication 04/15/2009 [facility], LAZARA A 296.00 BIPOLAR DISORDER 04/15/2009 [facility], LAZARA A V58.69 taking high-risk medication 04/15/2009 [facility], BENSON R 296.00 BIPOLAR DISORDER 04/15/2009 [facility], BENSON R V58.69 taking high-risk medication 06/05/2009 465.9 Upper Respiratory Infection 06/05/2009 465.9 Upper Respiratory Infection 06/05/2009 465.9 Upper Respiratory Infection 06/05/2009 SAINZ DO, SHAY K 465.9 Upper Respiratory Infection 06/05/2009 465.9 Upper Respiratory Infection 06/05/2009 SAINZ DO, SHAY K 465.9 Upper Respiratory Infection 06/05/2009 465.9 Upper Respiratory Infection 06/05/2009 465.9 Upper Respiratory Infection 06/05/2009 SJ FINK, CASSIDY Castillo 465.9 Upper Respiratory Infection 06/05/2009 SAINZ DO, SHAY K 465.9 Upper Respiratory Infection 06/05/2009 [facility] 465.9 Upper Respiratory Infection 06/05/2009 [facility] 465.9 Upper Respiratory Infection 06/05/2009 [facility] A 465.9 Upper Respiratory Infection 06/05/2009 [facility], OTTONIEL A 465.9 Upper Respiratory Infection 06/05/2009 [facility] A 465.9 Upper Respiratory Infection 06/05/2009 [facility] A 465.9 Upper Respiratory Infection 06/05/2009 [facility], OTTONIEL A 465.9 Upper Respiratory Infection 06/05/2009 [facility], BENSON R 465.9 Upper Respiratory Infection 06/05/2009 [facility] A 465.9 Upper Respiratory Infection 06/05/2009 [facility], BENSON R 465.9 Upper Respiratory Infection 06/05/2009 [facility], BENSON R 465.9 Upper Respiratory Infection 06/05/2009 SAI PEREZ MD 465.9 Upper Respiratory Infection 06/05/2009 SAINZ DO, SHAY K 465.9 Upper Respiratory Infection 06/05/2009 [facility], LAZARA A 465.9 Upper Respiratory Infection 06/05/2009 SAINZ DO, SHAY K 465.9 Upper Respiratory Infection 06/05/2009 [facility], LAZARA A 465.9 Upper Respiratory Infection 06/05/2009 [facility], LAZARA A 465.9 Upper Respiratory Infection 06/05/2009 SAINZ DO, SHAY K 465.9 Upper Respiratory Infection 06/05/2009 MIKE ANDERSON APRN 465.9 Upper Respiratory Infection 06/05/2009 SAINZ DO, SHAY K 465.9 Upper Respiratory Infection 06/05/2009 SAINZ DO, SHAY K 465.9 Upper Respiratory Infection 06/05/2009 SAINZ DO, SHAY K 465.9 Upper Respiratory Infection 06/05/2009 SAINZ DO, SHAY K 465.9 Upper Respiratory Infection 06/05/2009 SAINZ DO, SHAY K 465.9 Upper Respiratory Infection 06/05/2009 SAINZ DO, SHAY K 465.9 Upper Respiratory Infection 06/05/2009 SAINZ DO, SHAY K 465.9 Upper Respiratory Infection 06/05/2009 SAINZ DO, SHAY K 465.9 Upper Respiratory Infection 06/05/2009 ROBERTO FIGUEROA MD 465.9 Upper Respiratory Infection 06/05/2009 [facility], LAZARA A 465.9 Upper Respiratory Infection 06/05/2009 [facility], LAZARA A 465.9 Upper Respiratory Infection 06/05/2009 SAINZ DO, SHAY K 465.9 Upper Respiratory Infection 06/05/2009 [facility], BENSON R 465.9 Upper Respiratory Infection 06/05/2009 [facility], LAZARA A 465.9 Upper Respiratory Infection 06/05/2009 SAINZ DO, SHAY K 465.9 Upper Respiratory Infection 06/05/2009 [facility], BENSON R 465.9 Upper Respiratory Infection 06/05/2009 [facility], LAZARA A 465.9 Upper Respiratory Infection 06/05/2009 [facility], BENSON R 465.9 Upper Respiratory Infection 06/18/2009 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 ABRASIVE GRINDER 06/18/2009 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 ABRASIVE GRINDER 06/18/2009 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 ABRASIVE GRINDER 06/18/2009 SHAY SAINZ DO 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 ABRASIVE GRINDER 06/18/2009 LAZARA MELTON APRN 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 ABRASIVE GRINDER 06/18/2009 LAZARA MELTON APRN 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 ABRASIVE GRINDER 06/18/2009 SHAY SAINZ DO 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 ABRASIVE GRINDER 06/18/2009 [facility], MIKE T 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 ABRASIVE GRINDER 06/18/2009 SHAY SAINZ DO 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 ABRASIVE GRINDER 06/18/2009 SHAY SAINZ DO K 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 ABRASIVE GRINDER 06/18/2009 SAINZ TAWNY HUGEHSA K 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 ABRASIVE GRINDER 06/18/2009 TAWNY SAINZ DOA K 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 ABRASIVE GRINDER 06/18/2009 SHAY SAINZ DO K 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 ABRASIVE GRINDER 06/18/2009 TAWNY SAINZ DOA K 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 ABRASIVE GRINDER 06/18/2009 SAINZ TAWNY HUGHESA K 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 ABRASIVE GRINDER 06/18/2009 SHAY SAINZ DO K 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 ABRASIVE GRINDER 06/18/2009 ROBERTO FIGUEROA MD 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 ABRASIVE GRINDER 06/18/2009 LAZARA MELTON APRN A 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 ABRASIVE GRINDER 06/18/2009 JASON MELTON APRNIDI A 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 ABRASIVE GRINDER 06/18/2009 SHAY SAINZ DO K 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 ABRASIVE GRINDER 06/18/2009 RALPH NAVARRO APRNINA R 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 ABRASIVE GRINDER 06/18/2009 JASON MELTON APRNIDI A 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 ABRASIVE GRINDER 06/18/2009 SHAY SAINZ DO K 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 ABRASIVE GRINDER 06/18/2009 RALPH NAVARRO APRNINA R 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 ABRASIVE GRINDER 06/18/2009 JASON MELTON APRNIDI A 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, PATRICE A V05.3 HEPATITIS VIRAL/ALL 07/06/2009 [facility], PATRICE A V05.3 HEPATITIS VIRAL/ALL 07/06/2009 [facility], PATRICE A V05.3 HEPATITIS VIRAL/ALL 07/06/2009 [facility], OTTONIEL A V05.3 HEPATITIS VIRAL/ALL 07/06/2009 [facility], PATRICE A V05.3 HEPATITIS VIRAL/ALL 07/06/2009 [facility], PATRICE A V05.3 HEPATITIS VIRAL/ALL 07/06/2009 [facility], OTTONIEL A V05.3 HEPATITIS VIRAL/ALL 07/06/2009 [facility], BENSON R V05.3 HEPATITIS VIRAL/ALL 07/06/2009 [facility], PATRICE A V05.3 HEPATITIS VIRAL/ALL 07/06/2009 [facility], BENSON R V05.3 HEPATITIS VIRAL/ALL 07/06/2009 [facility], BENSON R V05.3 HEPATITIS VIRAL/ALL 07/06/2009 SAI PEREZ MD V05.3 HEPATITIS VIRAL/ALL 07/06/2009 SAINZ DO, SHAY K V05.3 HEPATITIS VIRAL/ALL 07/06/2009 [facility], LAZARA A V05.3 HEPATITIS VIRAL/ALL 07/06/2009 SAINZ DO, SHAY K V05.3 HEPATITIS VIRAL/ALL 07/06/2009 [facility], LAZARA A V05.3 HEPATITIS VIRAL/ALL 07/06/2009 [facility], LAZARA A V05.3 HEPATITIS VIRAL/ALL 07/06/2009 SAINZ DO, SHAY K V05.3 HEPATITIS VIRAL/ALL 07/06/2009 JUST[facility] LAN, MIKE Ward V05.3 HEPATITIS VIRAL/ALL 07/06/2009 SAINZ DO, SHAY Monroe V05.3 HEPATITIS VIRAL/ALL 07/06/2009 SAINZ DO, SHAY K V05.3 HEPATITIS VIRAL/ALL 07/06/2009 SAINZ DO, SHAY K V05.3 HEPATITIS VIRAL/ALL 07/06/2009 SAINZ DO, SHAY K V05.3 HEPATITIS VIRAL/ALL 07/06/2009 SAINZ DO, SHAY K V05.3 HEPATITIS VIRAL/ALL 07/06/2009 SAINZ DO, SHAY K V05.3 HEPATITIS VIRAL/ALL 07/06/2009 SAINZ DO, SHAY K V05.3 HEPATITIS VIRAL/ALL 07/06/2009 SAINZ DO, SHAY K V05.3 HEPATITIS VIRAL/ALL 07/06/2009 HENRY CONROY, ROBERTO N V05.3 HEPATITIS VIRAL/ALL 07/06/2009 [facility], LAZARA A V05.3 HEPATITIS VIRAL/ALL 07/06/2009 [facility], LAZARA A V05.3 HEPATITIS VIRAL/ALL 07/06/2009 SAINZ DO, SHAY K V05.3 HEPATITIS VIRAL/ALL 07/06/2009 [facility], BENSON R V05.3 HEPATITIS VIRAL/ALL 07/06/2009 [facility], LAZARA A V05.3 HEPATITIS VIRAL/ALL 07/06/2009 SAINZ DO, SHAY K V05.3 HEPATITIS VIRAL/ALL 07/06/2009 [facility], BENSON R V05.3 HEPATITIS VIRAL/ALL 07/06/2009 [facility] CONCIERGE, LAZARA A V05.3 HEPATITIS VIRAL/ALL 07/06/2009 [facility] CONCIERGE, BENSON R V05.3 HEPATITIS VIRAL/ALL 07/23/2009 296.90 EPISODIC MOOD DISORDERS 07/23/2009 296.90 EPISODIC MOOD DISORDERS 07/23/2009 296.90 EPISODIC MOOD DISORDERS 07/23/2009 SHAY SAINZ DO 296.90 EPISODIC MOOD DISORDERS 07/23/2009 296.90 EPISODIC MOOD DISORDERS 07/23/2009 SHAY SAINZ DO 296.90 EPISODIC MOOD DISORDERS 07/23/2009 296.90 EPISODIC MOOD DISORDERS 07/23/2009 296.90 EPISODIC MOOD DISORDERS 07/23/2009 SJ FINK, CASSIDY Castillo 296.90 EPISODIC MOOD DISORDERS 07/23/2009 SHAY SAINZ DO 296.90 EPISODIC MOOD DISORDERS 07/23/2009 DELMER PATRICE OVIEDO 296.90 EPISODIC MOOD DISORDERS 07/23/2009 PATRICE GRANADOS 296.90 EPISODIC MOOD DISORDERS 07/23/2009 DELMER LSCS, PATRICE A 296.90 EPISODIC MOOD DISORDERS 07/23/2009 [facility] CONCI[employer]GE, OTTONIEL A 296.90 EPISODIC MOOD DISORDERS 07/23/2009 [facility] 296.90 EPISODIC MOOD DISORDERS 07/23/2009 DOWELL LSCS, PATRICE A 296.90 EPISODIC MOOD DISORDERS 07/23/2009 [employer] [employer] CONCIERGE, OTTONIEL A 296.90 EPISODIC MOOD DISORDERS 07/23/2009 [facility] [employer] CONCIERGE, BENSON R 296.90 EPISODIC MOOD DISORDERS 07/23/2009 DOWELL LSCS, PATRICE A 296.90 EPISODIC MOOD DISORDERS 07/23/2009 [facility] CONCIERGE, BENSON R 296.90 EPISODIC MOOD DISORDERS 07/23/2009 [facility] [employer] CONCIERGE, BENSON R 296.90 EPISODIC MOOD DISORDERS 07/23/2009 SAI PEREZ MD 296.90 EPISODIC MOOD DISORDERS 07/23/2009 SAINZ DO, SHAY K 296.90 EPISODIC MOOD DISORDERS 07/23/2009 [facility] CONCIERGE, LAZARA A 296.90 EPISODIC MOOD DISORDERS 07/23/2009 SAINZ DO, SHAY K 296.90 EPISODIC MOOD DISORDERS 07/23/2009 [facility] CONCIERGE, LAZARA A 296.90 EPISODIC MOOD DISORDERS 07/23/2009 [facility] CONCIERGE, LAZARA A 296.90 EPISODIC MOOD DISORDERS 07/23/2009 SAINZ DO, SHAY K 296.90 EPISODIC MOOD DISORDERS 07/23/2009 MIKE ANDERSON APRN 296.90 EPISODIC MOOD DISORDERS 07/23/2009 SAINZ DO, SHAY K 296.90 EPISODIC MOOD DISORDERS 07/23/2009 SAINZ DO, SHAY K 296.90 EPISODIC MOOD DISORDERS 07/23/2009 SAINZ DO, SHAY K 296.90 EPISODIC MOOD DISORDERS 07/23/2009 SAINZ DO, SHAY K 296.90 EPISODIC MOOD DISORDERS 07/23/2009 SAINZ DO, SHAY K 296.90 EPISODIC MOOD DISORDERS 07/23/2009 SAINZ DO, SHAY K 296.90 EPISODIC MOOD DISORDERS 07/23/2009 SAINZ DO, SHAY K 296.90 EPISODIC MOOD DISORDERS 07/23/2009 SAINZ DO, SHAY K 296.90 EPISODIC MOOD DISORDERS 07/23/2009 ROBERTO FIGUEROA MD 296.90 EPISODIC MOOD DISORDERS 07/23/2009 [facility] CONCIERGE, LAZARA A 296.90 EPISODIC MOOD DISORDERS 07/23/2009 [facility] CONCIERGE, LAZARA A 296.90 EPISODIC MOOD DISORDERS 07/23/2009 SAINZ DO, SHAY K 296.90 EPISODIC MOOD DISORDERS 07/23/2009 [facility] CONCIERGE, BENSON R 296.90 EPISODIC MOOD DISORDERS 07/23/2009 LIN[facility] LAN LAZARA A 296.90 EPISODIC MOOD DISORDERS 07/23/2009 SAINZ DO SHAY K 296.90 EPISODIC MOOD DISORDERS 07/23/2009 MELANIE CLUB CONCIERGE, BENSON R 296.90 EPISODIC MOOD DISORDERS 07/23/2009 LINH LAN LAZARA A 296.90 EPISODIC MOOD DISORDERS 07/23/2009 MELANIE [facility] CONCIERGE, BENSON R 296.90 EPISODIC MOOD DISORDERS 08/31/2009 296.80 MO BIPOLAR NOS 08/31/2009 296.80 MO BIPOLAR NOS 08/31/2009 296.80 MO BIPOLAR NOS 08/31/2009 SAINZ DO SHAY K 296.80 MO BIPOLAR NOS 08/31/2009 296.80 MO BIPOLAR NOS 08/31/2009 SAINZ DO SHAY K 296.80 MO BIPOLAR NOS 08/31/2009 296.80 MO BIPOLAR NOS 08/31/2009 296.80 MO BIPOLAR NOS 08/31/2009 SJ FINK, CASSIDY Castillo 296.80 MO BIPOLAR NOS 08/31/2009 SAINZ DO SHAY K 296.80 MO BIPOLAR NOS 08/31/2009 DOWELL LSCS, PATRICE A 296.80 MO BIPOLAR NOS 08/31/2009 DOWELL LSCS, PATRICE A 296.80 MO BIPOLAR NOS 08/31/2009 DOWELL LSCS, PATRICE A 296.80 MO BIPOLAR NOS 08/31/2009 RAJNIMES[facility] CONCIERGE, OTTONIEL A 296.80 MO BIPOLAR NOS 08/31/2009 DOWELL LSCS, PATRICE A 296.80 MO BIPOLAR NOS 08/31/2009 DOWELL LSCS, PATRICE A 296.80 MO BIPOLAR NOS 08/31/2009 RAJOTTE [facility] CONCIERGE, OTTONIEL A 296.80 MO BIPOLAR NOS 08/31/2009 MELANIE CL[facility] CONCIERGE, BENSON R 296.80 MO BIPOLAR NOS 08/31/2009 DOWELL LSCS, PATRICE A 296.80 MO BIPOLAR NOS 08/31/2009 MELANIE [facility] CONCIERGE, BENSON R 296.80 MO BIPOLAR NOS 08/31/2009 MEL[facility]IE [facility] CONCIERGE, BENSON R 296.80 MO BIPOLAR NOS 08/31/2009 SAI PEREZ MD 296.80 MO BIPOLAR NOS 08/31/2009 SAINZ DO, SHAY K 296.80 MO BIPOLAR NOS 08/31/2009 LINH CL[facility] CONCIERGE, LAZARA A 296.80 MO BIPOLAR NOS 08/31/2009 SAINZ DO, SHAY K 296.80 MO BIPOLAR NOS 08/31/2009 LINH CLUB CONCIERGE, LAZARA A 296.80 MO BIPOLAR NOS 08/31/2009 LINH CL[facility] CONCIERGE, LAZARA A 296.80 MO BIPOLAR NOS 08/31/2009 SAINZ DO, SHAY K 296.80 MO BIPOLAR NOS 08/31/2009 MIKE ANDERSON APRN 296.80 MO BIPOLAR NOS 08/31/2009 SAINZ DO, SHAY K 296.80 MO BIPOLAR NOS 08/31/2009 SAINZ DO, SHAY K 296.80 MO BIPOLAR NOS 08/31/2009 SAINZ DO, SHAY K 296.80 MO BIPOLAR NOS 08/31/2009 SAINZ DO, SHAY K 296.80 MO BIPOLAR NOS 08/31/2009 SAINZ DO, SHAY K 296.80 MO BIPOLAR NOS 08/31/2009 SAINZ DO, SHAY K 296.80 MO BIPOLAR NOS 08/31/2009 SAINZ DO, SHAY K 296.80 MO BIPOLAR NOS 08/31/2009 SAINZ DO, SHAY K 296.80 MO BIPOLAR NOS 08/31/2009 ROBERTO FIGUEROA MD 296.80 MO BIPOLAR NOS 08/31/2009 LINH CLUB CONCIERGE, LAZARA A 296.80 MO BIPOLAR NOS 08/31/2009 LINH CLUB CONCIERGE, LAZARA A 296.80 MO BIPOLAR NOS 08/31/2009 SAINZ DO, SHAY K 296.80 MO BIPOLAR NOS 08/31/2009 MELANIE CL[facility] CONCIERGE, BENSON R 296.80 MO BIPOLAR NOS 08/31/2009 LINH CLUB CONCIERGE, LAZARA A 296.80 MO BIPOLAR NOS 08/31/2009 SAINZ DO, SHAY K 296.80 MO BIPOLAR NOS 08/31/2009 MELANIE CLUB CONCIERGE, BENSON R 296.80 MO BIPOLAR NOS 08/31/2009 LINH CLUB CONCIERGE, LAZARA A 296.80 MO BIPOLAR NOS 08/31/2009 MELANIE CL[facility] CONCIERGE, BENSON R 296.80 MO BIPOLAR NOS 10/14/2009 312.82 CD - ADOLESCENT ONSET TYPE 10/14/2009 312.82 CD - ADOLESCENT ONSET TYPE 10/14/2009 312.82 CD - ADOLESCENT ONSET TYPE 10/14/2009 SAINZ DO, SHAY K 312.82 CD - ADOLESCENT ONSET TYPE 10/14/2009 312.82 CD - ADOLESCENT ONSET TYPE 10/14/2009 SAINZ DO, SHAY K 312.82 CD - ADOLESCENT ONSET TYPE 10/14/2009 312.82 CD - ADOLESCENT ONSET TYPE 10/14/2009 312.82 CD - ADOLESCENT ONSET TYPE 10/14/2009 SJ FINK, CASSIDY Castillo 312.82 CD - ADOLESCENT ONSET TYPE 10/14/2009 SAINZ DOSHAY K 312.82 CD - ADOLESCENT ONSET TYPE 10/14/2009 [facility], PATRICE A 312.82 CD - ADOLESCENT ONSET TYPE 10/14/2009 [facility], PATRICE A 312.82 CD - ADOLESCENT ONSET TYPE 10/14/2009 [facility], PATRICE A 312.82 CD - ADOLESCENT ONSET TYPE 10/14/2009 [facility] CONCIERGE, OTTONIEL A 312.82 CD - ADOLESCENT ONSET TYPE 10/14/2009 [facility], PATRICE A 312.82 CD - ADOLESCENT ONSET TYPE 10/14/2009 [facility], PATRICE A 312.82 CD - ADOLESCENT ONSET TYPE 10/14/2009 RA[facility] CONCIERGE, OTTONIEL A 312.82 CD - ADOLESCENT ONSET TYPE 10/14/2009 MELANIE LAN, BENSON R 312.82 CD - ADOLESCENT ONSET TYPE 10/14/2009 [facility], PATRICE A 312.82 CD - ADOLESCENT ONSET TYPE 10/14/2009 MELANIE CL[facility] CONCIERGE, BENSON R 312.82 CD - ADOLESCENT ONSET TYPE 10/14/2009 MELANIE CLUB CONCIERGE, BENSON R 312.82 CD - ADOLESCENT ONSET TYPE 10/14/2009 SAI PEREZ MD 312.82 CD - ADOLESCENT ONSET TYPE 10/14/2009 SAINZ DO, SHAY K 312.82 CD - ADOLESCENT ONSET TYPE 10/14/2009 LINH LAN, LAZARA A 312.82 CD - ADOLESCENT ONSET TYPE 10/14/2009 SAINZ DO SHAY K 312.82 CD - ADOLESCENT ONSET TYPE 10/14/2009 LINH CLUB CONCIERGE, LAZARA A 312.82 CD - ADOLESCENT ONSET TYPE 10/14/2009 LINH LAN, LAZARA A 312.82 CD - ADOLESCENT ONSET TYPE 10/14/2009 SAINZ DO, SHAY K 312.82 CD - ADOLESCENT ONSET TYPE 10/14/2009 MIKE ANDERSON APRN 312.82 CD - ADOLESCENT ONSET TYPE 10/14/2009 SAINZ DOTAWNYA K 312.82 CD - ADOLESCENT ONSET TYPE 10/14/2009 SAINZ DOTAWNYA K 312.82 CD - ADOLESCENT ONSET TYPE 10/14/2009 SAINZ DO, SHAY K 312.82 CD - ADOLESCENT ONSET TYPE 10/14/2009 SAINZ DO, SHAY K 312.82 CD - ADOLESCENT ONSET TYPE 10/14/2009 SAINZ DO, SHAY K 312.82 CD - ADOLESCENT ONSET TYPE 10/14/2009 SAINZ DO, SHAY K 312.82 CD - ADOLESCENT ONSET TYPE 10/14/2009 SAINZ DO, SHAY K 312.82 CD - ADOLESCENT ONSET TYPE 10/14/2009 SAINZ DO, SHAY K 312.82 CD - ADOLESCENT ONSET TYPE 10/14/2009 HENRY CONROY, ROBERTO Fernandez 312.82 CD - ADOLESCENT ONSET TYPE 10/14/2009 LINH LAN LAZARA A 312.82 CD - ADOLESCENT ONSET TYPE 10/14/2009 LINH LAN LAZARA A 312.82 CD - ADOLESCENT ONSET TYPE 10/14/2009 SAINZ DO, SHAY K 312.82 CD - ADOLESCENT ONSET TYPE 10/14/2009 MELANIE LAN, BENSON R 312.82 CD - ADOLESCENT ONSET TYPE 10/14/2009 LINH LAN LAZARA A 312.82 CD - ADOLESCENT ONSET TYPE 10/14/2009 SAINZ DO, SHAY K 312.82 CD - ADOLESCENT ONSET TYPE 10/14/2009 MELANIE LAN BENSON R 312.82 CD - ADOLESCENT ONSET TYPE 10/14/2009 LINH LAN LAZARA A 312.82 CD - ADOLESCENT ONSET TYPE 10/14/2009 MELANIE LAN BENSON R 312.82 CD - ADOLESCENT ONSET TYPE 10/21/2009 312.81 CD - CHILDHOOD ONSET TYPE 10/21/2009 312.81 CD - CHILDHOOD ONSET TYPE 10/21/2009 312.81 CD - CHILDHOOD ONSET TYPE 10/21/2009 TAWNY SAINZ DOA K 312.81 CD - CHILDHOOD ONSET TYPE 10/21/2009 312.81 CD - CHILDHOOD ONSET TYPE 10/21/2009 TAWNY SAINZ DOA K 312.81 CD - CHILDHOOD ONSET TYPE 10/21/2009 312.81 CD - CHILDHOOD ONSET TYPE 10/21/2009 312.81 CD - CHILDHOOD ONSET TYPE 10/21/2009 SJ FINK, CASSIDY Castillo 312.81 CD - CHILDHOOD ONSET TYPE 10/21/2009 TAWNY SAINZ DOA K 312.81 CD - CHILDHOOD ONSET TYPE 10/21/2009 [facility] [place] 312.81 CD - CHILDHOOD ONSET TYPE 10/21/2009 [facility], PATRICE A 312.81 CD - CHILDHOOD ONSET TYPE 10/21/2009 [facility], PATRICE A 312.81 CD - CHILDHOOD ONSET TYPE 10/21/2009 COREY BREWERN OTTONIEL A 312.81 CD - CHILDHOOD ONSET TYPE 10/21/2009 [facility], PATRICE A 312.81 CD - CHILDHOOD ONSET TYPE 10/21/2009 [facility], PATRICE A 312.81 CD - CHILDHOOD ONSET TYPE 10/21/2009 COREY [facility] CONCIERGE OTTONIEL A 312.81 CD - CHILDHOOD ONSET TYPE 10/21/2009 MELANEI CLUB CONCIERGE, BENSON R 312.81 CD - CHILDHOOD ONSET TYPE 10/21/2009 [facility], PATRICE A 312.81 CD - CHILDHOOD ONSET TYPE 10/21/2009 MELANIE CLUB CONCIERGE, BENSON R 312.81 CD - CHILDHOOD ONSET TYPE 10/21/2009 MELANIE CLUB CONCIERGE, BENSON R 312.81 CD - CHILDHOOD ONSET TYPE 10/21/2009 SAI PEREZ MD 312.81 CD - CHILDHOOD ONSET TYPE 10/21/2009 SAINZ DO SHAY K 312.81 CD - CHILDHOOD ONSET TYPE 10/21/2009 JASON MELTON APRNIDI A 312.81 CD - CHILDHOOD ONSET TYPE 10/21/2009 SAINZ DO, SHAY K 312.81 CD - CHILDHOOD ONSET TYPE 10/21/2009 JASON MELTON APRNIDI A 312.81 CD - CHILDHOOD ONSET TYPE 10/21/2009 LINH LAN LAZARA A 312.81 CD - CHILDHOOD ONSET TYPE 10/21/2009 SAINZ DO SHAY K 312.81 CD - CHILDHOOD ONSET TYPE 10/21/2009 MIKE ANDERSON APRN 312.81 CD - CHILDHOOD ONSET TYPE 10/21/2009 SAINZ DO, SHAY K 312.81 CD - CHILDHOOD ONSET TYPE 10/21/2009 SAINZ DO, SHAY K 312.81 CD - CHILDHOOD ONSET TYPE 10/21/2009 SAINZ DO, SHAY K 312.81 CD - CHILDHOOD ONSET TYPE 10/21/2009 SAINZ DO, SHAY K 312.81 CD - CHILDHOOD ONSET TYPE 10/21/2009 SAINZ DO, SHAY K 312.81 CD - CHILDHOOD ONSET TYPE 10/21/2009 SAINZ DO, SHAY K 312.81 CD - CHILDHOOD ONSET TYPE 10/21/2009 SAINZ DO, SHAY K 312.81 CD - CHILDHOOD ONSET TYPE 10/21/2009 SHAY SAINZ DO K 312.81 CD - CHILDHOOD ONSET TYPE 10/21/2009 ROBERTO FIGUEROA MD 312.81 CD - CHILDHOOD ONSET TYPE 10/21/2009 JASON MELTON APRNIDI A 312.81 CD - CHILDHOOD ONSET TYPE 10/21/2009 LINH LAN LAZARA A 312.81 CD - CHILDHOOD ONSET TYPE 10/21/2009 SHAY SAINZ DO K 312.81 CD - CHILDHOOD ONSET TYPE 10/21/2009 MELANIE LAN, BENSON R 312.81 CD - CHILDHOOD ONSET TYPE 10/21/2009 LINH LAN LAZARA A 312.81 CD - CHILDHOOD ONSET TYPE 10/21/2009 TAWNY SAINZ DOA K 312.81 CD - CHILDHOOD ONSET TYPE 10/21/2009 MELANIE LAN BENSON R 312.81 CD - CHILDHOOD ONSET TYPE 10/21/2009 LINH LAN LAZARA A 312.81 CD - CHILDHOOD ONSET TYPE 10/21/2009 MELANIE LAN BENSON R 312.81 CD - CHILDHOOD ONSET TYPE 03/19/2010 313.81 CD OPPOSITIONAL DEFIANT 03/19/2010 313.81 CD OPPOSITIONAL DEFIANT 03/19/2010 313.81 CD OPPOSITIONAL DEFIANT 03/19/2010 SHAY SAINZ DO K 313.81 CD OPPOSITIONAL DEFIANT 03/19/2010 313.81 CD OPPOSITIONAL DEFIANT 03/19/2010 SHAY SAINZ DO K 313.81 CD OPPOSITIONAL DEFIANT 03/19/2010 313.81 CD OPPOSITIONAL DEFIANT 03/19/2010 313.81 CD OPPOSITIONAL DEFIANT 03/19/2010 SJ PHD, CASSIDY Castillo 313.81 CD OPPOSITIONAL DEFIANT 03/19/2010 SHAY SAINZ DO K 313.81 CD OPPOSITIONAL DEFIANT 03/19/[facility]OSITIONAL [facility] 03/19/[facility] 313.81 CD OPPOSITIONAL DEFIANT 03/19/[facility] 313.81 CD OPPOSITIONAL DEFIANT 03/19/2010 OTTONIEL NICOLE APRN 313.81 CD OPPOSITIONAL DEFIANT 03/19/2010 [facility] 313.81 CD OPPOSITIONAL DEFIANT 03/19/[facility] 313.81 CD OPPOSITIONAL DEFIANT 03/19/2010 COREY LAN OTTONIEL A 313.81 CD OPPOSITIONAL DEFIANT 03/19/2010 MEALNIE LAN, BENSON R 313.81 CD OPPOSITIONAL DEFIANT 03/19/2010 [facility] [place] A 313.81 CD OPPOSITIONAL DEFIANT 03/19/2010 MEL[facility]IE [facility] CONCIERGE, BENSON R 313.81 CD OPPOSITIONAL DEFIANT 03/19/2010 MELANIE LAN, BENSON R 313.81 CD OPPOSITIONAL DEFIANT 03/19/2010 SAI PEREZ MD 313.81 CD OPPOSITIONAL DEFIANT 03/19/2010 SAINZ DO, SHAY K 313.81 CD OPPOSITIONAL DEFIANT 03/19/2010 LINH LAN LAZARA A 313.81 CD OPPOSITIONAL DEFIANT 03/19/2010 SAINZ DO, SHAY K 313.81 CD OPPOSITIONAL DEFIANT 03/19/2010 LINH LAN LAZARA A 313.81 CD OPPOSITIONAL DEFIANT 03/19/2010 LINH LAN LAZARA A 313.81 CD OPPOSITIONAL DEFIANT 03/19/2010 SAINZ DO, SHAY K 313.81 CD OPPOSITIONAL DEFIANT 03/19/2010 MIKE ANDERSON APRN 313.81 CD OPPOSITIONAL DEFIANT 03/19/2010 SAINZ DO, SHAY K 313.81 CD OPPOSITIONAL DEFIANT 03/19/2010 SAINZ DO, SAHY K 313.81 CD OPPOSITIONAL DEFIANT 03/19/2010 SAINZ DO, SHAY K 313.81 CD OPPOSITIONAL DEFIANT 03/19/2010 SAINZ DO, SHAY K 313.81 CD OPPOSITIONAL DEFIANT 03/19/2010 SAINZ DO, SHAY K 313.81 CD OPPOSITIONAL DEFIANT 03/19/2010 SAINZ DO, SHAY K 313.81 CD OPPOSITIONAL DEFIANT 03/19/2010 SAINZ DO, SHAY K 313.81 CD OPPOSITIONAL DEFIANT 03/19/2010 SAINZ DO, SHAY K 313.81 CD OPPOSITIONAL DEFIANT 03/19/2010 ROBERTO FIGUEROA MD 313.81 CD OPPOSITIONAL DEFIANT 03/19/2010 LINH LAN LAZARA A 313.81 CD OPPOSITIONAL DEFIANT 03/19/2010 LINH LAN LAZARA A 313.81 CD OPPOSITIONAL DEFIANT 03/19/2010 SAINZ DO, SHAY K 313.81 CD OPPOSITIONAL DEFIANT 03/19/2010 MEL[facility]IE [facility] CONCIERGE, BENSON R 313.81 CD OPPOSITIONAL DEFIANT 03/19/2010 LIN[facility] CL[facility] CONCIERGE, LAZARA A 313.81 CD OPPOSITIONAL DEFIANT 03/19/2010 SAINZ DO, SHAY K 313.81 CD OPPOSITIONAL DEFIANT 03/19/2010 MELANIE [facility] CONCIERGE, BENSON R 313.81 CD OPPOSITIONAL DEFIANT 03/19/2010 LIN[facility] CL[facility] CONCIERGE, LAZARA A 313.81 CD OPPOSITIONAL DEFIANT 03/19/2010 MELANIE [facility] CONCIERGE, BENSON R 313.81 CD OPPOSITIONAL DEFIANT 08/16/2010 314.01 ADHD COMBINED 08/16/2010 314.01 ADHD COMBINED 08/16/2010 314.01 ADHD COMBINED 08/16/2010 SAINZ DO SHAY K 314.01 ADHD COMBINED 08/16/2010 314.01 ADHD COMBINED 08/16/2010 SAINZ DO, SHAY K 314.01 ADHD COMBINED 08/16/2010 314.01 ADHD COMBINED 08/16/2010 314.01 ADHD COMBINED 08/16/2010 SJ FINK, CASSIDY Castillo 314.01 ADHD COMBINED 08/16/2010 SAINZ DO SHAY K 314.01 ADHD COMBINED 08/16/2010 [facility], PATRICE A 314.01 ADHD COMBINED 08/16/2010 [facility], PATRICE A 314.01 ADHD COMBINED 08/16/2010 [facility], PATRICE A 314.01 ADHD COMBINED 08/16/2010 [facility] CONCIERGE, OTTONIEL A 314.01 ADHD COMBINED 08/16/2010 [facility], PATRICE A 314.01 ADHD COMBINED 08/16/2010 [facility], PATRICE A 314.01 ADHD COMBINED 08/16/2010 [facility] CONCIERGE, OTTONIEL A 314.01 ADHD COMBINED 08/16/2010 MELANIE [facility] CONCIERGE, BENSON R 314.01 ADHD COMBINED 08/16/2010 [facility], PATRICE A 314.01 ADHD COMBINED 08/16/2010 MELANIE [facility] CONCIERGE, BENSON R 314.01 ADHD COMBINED 08/16/2010 MELANIE [facility] CONCIERGE, BENSON R 314.01 ADHD COMBINED 08/16/2010 SAI PEREZ MD 314.01 ADHD COMBINED 08/16/2010 SAINZ DO, SHAY K 314.01 ADHD COMBINED 08/16/2010 LINHBRANDEN BREWERN, LAZARA A 314.01 ADHD COMBINED 08/16/2010 SAINZ DO, SHAY K 314.01 ADHD COMBINED 08/16/2010 LIN[facility] CL[facility] CONCIERGE, LAZARA A 314.01 ADHD COMBINED 08/16/2010 LINH CL[facility] CONCIERGE, LAZARA A 314.01 ADHD COMBINED 08/16/2010 SAINZ DO, SHAY K 314.01 ADHD COMBINED 08/16/2010 JUSTIN CLUB CONCIERGEMIKE Fernandez 314.01 ADHD COMBINED 08/16/2010 SAINZ DO, SHAY K 314.01 ADHD COMBINED 08/16/2010 SAINZ DO, SHAY K 314.01 ADHD COMBINED 08/16/2010 SAINZ DO, SHAY K 314.01 ADHD COMBINED 08/16/2010 SAINZ DO, SHAY K 314.01 ADHD COMBINED 08/16/2010 SAINZ DO, SHAY K 314.01 ADHD COMBINED 08/16/2010 SAINZ DO, SHAY K 314.01 ADHD COMBINED 08/16/2010 SAINZ DO, SHAY K 314.01 ADHD COMBINED 08/16/2010 SAINZ DO, SHAY K 314.01 ADHD COMBINED 08/16/2010 HENRY CONROY, ROBERTO Fernandez 314.01 ADHD COMBINED 08/16/2010 LIN[facility] CONCIERGE, LAZARA A 314.01 ADHD COMBINED 08/16/2010 LIN[facility] CL[facility] CONCIERGE, LAZARA A 314.01 ADHD COMBINED 08/16/2010 SAINZ DO, SHAY K 314.01 ADHD COMBINED 08/16/2010 MEL[facility]IE [facility] CONCIERGE, BENSON R 314.01 ADHD COMBINED 08/16/2010 LIN[facility] CL[facility] CONCIERGE, LAZARA A 314.01 ADHD COMBINED 08/16/2010 SAINZ DO, SHAY K 314.01 ADHD COMBINED 08/16/2010 MELANIE [facility] CONCIERGE, BENSON R 314.01 ADHD COMBINED 08/16/2010 LIN[facility] CL[facility] CONCIERGE, LAZARA A 314.01 ADHD COMBINED 08/16/2010 MELANIE [facility] CONCIERGE, BENSON R 314.01 ADHD COMBINED 12/29/2010 706.1 Acne 12/29/2010 V25.09 CONTRACEPTIVE COUNSELING 12/29/2010 706.1 Acne 12/29/2010 V25.09 CONTRACEPTIVE COUNSELING 12/29/2010 706.1 Acne 12/29/2010 V25.09 CONTRACEPTIVE COUNSELING 12/29/2010 SAINZ DO, SHAY K 706.1 Acne 12/29/2010 SAINZ DO, SHAY K V25.09 CONTRACEPTIVE COUNSELING 12/29/2010 706.1 Acne 12/29/2010 V25.09 CONTRACEPTIVE COUNSELING 12/29/2010 SAINZ DO, SHAY K 706.1 Acne 12/29/2010 SAINZ DO, SHAY K V25.09 CONTRACEPTIVE COUNSELING 12/29/2010 706.1 Acne 12/29/2010 V25.09 CONTRACEPTIVE COUNSELING 12/29/2010 706.1 Acne 12/29/2010 V25.09 CONTRACEPTIVE COUNSELING 12/29/2010 SJ PHD, CASSIDY Castillo 706.1 Acne 12/29/2010 SJ FINK, CASSIDY Castillo V25.09 CONTRACEPTIVE COUNSELING 12/29/2010 SAINZ DO, SHAY K 706.1 Acne 12/29/2010 SAINZ DO, SHAY K V25.09 CONTRACEPTIVE COUNSELING 12/29/2010 DOWELL LSCS, PATRICE A 706.1 Acne 12/29/2010 DOWELL LSCS, PATRICE A V25.09 CONTRACEPTIVE COUNSELING 12/29/2010 DOWELL LSCS, PATRICE A 706.1 Acne 12/29/2010 DOWELL LSCS, APTRICE A V25.09 CONTRACEPTIVE COUNSELING 12/29/2010 DOWELL LSCS, PATRICE A 706.1 Acne 12/29/2010 DOWELL LSCS, PATRICE A V25.09 CONTRACEPTIVE COUNSELING 12/29/2010 [facility], OTTONIEL A 706.1 Acne 12/29/2010 [facility] CONCIERGE, OTTONIEL A V25.09 CONTRACEPTIVE COUNSELING 12/29/2010 DOWELL LSCS, PATRICE A 706.1 Acne 12/29/2010 DOWELL LSCS, PATRICE A V25.09 CONTRACEPTIVE COUNSELING 12/29/2010 DOWELL LSCS, PATRICE A 706.1 Acne 12/29/2010 DOWELL LSCS, PATRICE A V25.09 CONTRACEPTIVE COUNSELING 12/29/2010 [facility] CONCIERGE, OTTONIEL A 706.1 Acne 12/29/2010 RA[facility] CONCIERGE, OTTONIEL A V25.09 CONTRACEPTIVE COUNSELING 12/29/2010 MEL[facility]IE [facility] CONCIERGE, BENSON R 706.1 Acne 12/29/2010 MELANIE CL[facility] CONCIERGE, BENSON R V25.09 CONTRACEPTIVE COUNSELING 12/29/2010 DOWELL LSCS, PATRICE A 706.1 Acne 12/29/2010 DOWELL LSCS, PATRICE A V25.09 CONTRACEPTIVE COUNSELING 12/29/2010 MEL[facility]IE [facility] CONCIERGE, BENSON R 706.1 Acne 12/29/2010 MELANIE [facility] CONCIERGE, BENSON R V25.09 CONTRACEPTIVE COUNSELING 12/29/2010 MELANIE [facility] CONCIERGE, BENSON R 706.1 Acne 12/29/2010 MELANIE [facility] CONCIERGE, BENSON R V25.09 CONTRACEPTIVE COUNSELING 12/29/2010 SAI PEREZ MD 706.1 Acne 12/29/2010 SAI PEREZ MD V25.09 CONTRACEPTIVE COUNSELING 12/29/2010 SAINZ DO, SHAY K 706.1 Acne 12/29/2010 SAINZ DO, SHAY K V25.09 CONTRACEPTIVE COUNSELING 12/29/2010 [facility] CONCIERGE, LAZARA A 706.1 Acne 12/29/2010 [facility] CONCIERGE, LAZARA A V25.09 CONTRACEPTIVE COUNSELING 12/29/2010 SAINZ DO, SHAY K 706.1 Acne 12/29/2010 SAINZ DO, SHAY K V25.09 CONTRACEPTIVE COUNSELING 12/29/2010 [facility] CONCIERGE, LAZARA A 706.1 Acne 12/29/2010 LIN[facility] CL[facility] CONCIERGE, LAZARA A V25.09 CONTRACEPTIVE COUNSELING 12/29/2010 [facility] CONCIERGE, LAZARA A 706.1 Acne 12/29/2010 [facility] CONCIERGE, LAZARA A V25.09 CONTRACEPTIVE COUNSELING 12/29/2010 SAINZ DO, SHAY K 706.1 Acne 12/29/2010 SAINZ DO, SHAY K V25.09 CONTRACEPTIVE COUNSELING 12/29/2010 MIKE ANDERSON APRN 706.1 Acne 12/29/2010 MIKE ANDERSON APRN V25.09 CONTRACEPTIVE COUNSELING 12/29/2010 SAINZ DO, SHAY K 706.1 Acne 12/29/2010 SAINZ DO, SHAY K V25.09 CONTRACEPTIVE COUNSELING 12/29/2010 SAINZ DO, SHAY K 706.1 Acne 12/29/2010 SAINZ DO, SHAY K V25.09 CONTRACEPTIVE COUNSELING 12/29/2010 SAINZ DO, SHAY K 706.1 Acne 12/29/2010 SAINZ DO, SHAY K V25.09 CONTRACEPTIVE COUNSELING 12/29/2010 SAINZ DO, SHAY K 706.1 Acne 12/29/2010 SAINZ DO, SHAY K V25.09 CONTRACEPTIVE COUNSELING 12/29/2010 SAINZ DO, SHAY K 706.1 Acne 12/29/2010 SAINZ DO, SHAY K V25.09 CONTRACEPTIVE COUNSELING 12/29/2010 SAINZ DO, SHAY K 706.1 Acne 12/29/2010 SAINZ DO, SHAY K V25.09 CONTRACEPTIVE COUNSELING 12/29/2010 SAINZ DO SHAY K 706.1 Acne 12/29/2010 SAINZ DO, SHAY K V25.09 CONTRACEPTIVE COUNSELING 12/29/2010 SAINZ DO, SHAY K 706.1 Acne 12/29/2010 SAINZ DO, SHAY K V25.09 CONTRACEPTIVE COUNSELING 12/29/2010 HENRY CONROY, ROBERTO N 706.1 Acne 12/29/2010 ROBERTO FIGUEROA MD V25.09 CONTRACEPTIVE COUNSELING 12/29/2010 [facility] CONCIERGE, LAZARA A 706.1 Acne 12/29/2010 LIN[facility] CL[facility] CONCIERGE, LAZARA A V25.09 CONTRACEPTIVE COUNSELING 12/29/2010 LIN[facility] CONCIERGE, LAZARA A 706.1 Acne 12/29/2010 LIN[facility] CLUB CONCIERGE, LAZARA A V25.09 CONTRACEPTIVE COUNSELING 12/29/2010 SAINZ DO SHAY K 706.1 Acne 12/29/2010 SAINZ DO SHAY K V25.09 CONTRACEPTIVE COUNSELING 12/29/2010 MEL[facility]IE CL[facility] CONCIERGE, BENSON R 706.1 Acne 12/29/2010 MELANIE CL[facility] CONCIERGE, BENSON R V25.09 CONTRACEPTIVE COUNSELING 12/29/2010 LIN[facility] CONCIERGE, LAZARA A 706.1 Acne 12/29/2010 LIN[facility] CL[facility] CONCIERGE, LAZARA A V25.09 CONTRACEPTIVE COUNSELING 12/29/2010 SAINZ DO, SHAY K 706.1 Acne 12/29/2010 SAINZ DO, SHAY K V25.09 CONTRACEPTIVE COUNSELING 12/29/2010 MELANIE CLUB CONCIERGE, BENSON R 706.1 Acne 12/29/2010 [facility] CONCIERGE, BENSON R V25.09 CONTRACEPTIVE COUNSELING 12/29/2010 [facility] CONCIERGE, LAZARA A 706.1 Acne 12/29/2010 [facility] CONCIERGE, LAZARA A V25.09 CONTRACEPTIVE COUNSELING 12/29/2010 [facility] CONCIERGE, BENSON R 706.1 Acne 12/29/2010 [facility] CONCIERGE, BENSON R V25.09 CONTRACEPTIVE COUNSELING 03/24/2011 V25.49 CONTRACEPTION SURVEILLANCE (REPEAT RX) 03/24/2011 V25.49 CONTRACEPTION SURVEILLANCE (REPEAT RX) 03/24/2011 V25.49 CONTRACEPTION SURVEILLANCE (REPEAT RX) 03/24/2011 SHAY SAINZ DO K V25.49 CONTRACEPTION SURVEILLANCE (REPEAT RX) 03/24/2011 V25.49 CONTRACEPTION SURVEILLANCE (REPEAT RX) 03/24/2011 SHAY SAINZ DO V25.49 CONTRACEPTION SURVEILLANCE (REPEAT RX) 03/24/2011 V25.49 CONTRACEPTION SURVEILLANCE (REPEAT RX) 03/24/2011 V25.49 CONTRACEPTION SURVEILLANCE (REPEAT RX) 03/24/2011 [facility] PHD, CASSIDY Castillo V25.49 CONTRACEPTION SURVEILLANCE (REPEAT RX) 03/24/2011 SHAY SAINZ DO V25.49 CONTRACEPTION SURVEILLANCE (REPEAT RX) 03/24/2011 [facility], PATRICE A V25.49 CONTRACEPTION SURVEILLANCE (REPEAT RX) 03/24/2011 [facility], PATRICE A V25.49 CONTRACEPTION SURVEILLANCE (REPEAT RX) 03/24/2011 [facility], PATRICE Gonzalez V25.49 CONTRACEPTION SURVEILLANCE (REPEAT RX) 03/24/2011 OTTONIEL NICOLE APRN V25.49 CONTRACEPTION SURVEILLANCE (REPEAT RX) 03/24/2011 [facility], PATRICE Gonzalez V25.49 CONTRACEPTION SURVEILLANCE (REPEAT RX) 03/24/2011 [facility], PATRICE Gonzalez V25.49 CONTRACEPTION SURVEILLANCE (REPEAT RX) 03/24/2011 OTTONIEL NICOLE APRN V25.49 CONTRACEPTION SURVEILLANCE (REPEAT RX) 03/24/2011 RALPH NAVARRO APRNINA R V25.49 CONTRACEPTION SURVEILLANCE (REPEAT RX) 03/24/2011 [facility], PATRICE Gonzalez V25.49 CONTRACEPTION SURVEILLANCE (REPEAT RX) 03/24/2011 RALPH NAVARRO APRNINA R V25.49 CONTRACEPTION SURVEILLANCE (REPEAT RX) 03/24/2011 BENSON NAVARRO APRN V25.49 CONTRACEPTION SURVEILLANCE (REPEAT RX) 03/24/2011 SAI PEREZ MD V25.49 CONTRACEPTION SURVEILLANCE (REPEAT RX) 03/24/2011 SHAY SAINZ DO V25.49 CONTRACEPTION SURVEILLANCE (REPEAT RX) 03/24/2011 LAZARA MELTON APRN V25.49 CONTRACEPTION SURVEILLANCE (REPEAT RX) 03/24/2011 SHAY SAINZ DO V25.49 CONTRACEPTION SURVEILLANCE (REPEAT RX) 03/24/2011 LAZARA MELTON APRN V25.49 CONTRACEPTION SURVEILLANCE (REPEAT RX) 03/24/2011 LAZARA MELTON APRN V25.49 CONTRACEPTION SURVEILLANCE (REPEAT RX) 03/24/2011 SAINZ DO, SHAY K V25.49 CONTRACEPTION SURVEILLANCE (REPEAT RX) 03/24/2011 MIKE ANDERSON APRN V25.49 CONTRACEPTION SURVEILLANCE (REPEAT RX) 03/24/2011 SAINZ DOSHAY K V25.49 CONTRACEPTION SURVEILLANCE (REPEAT RX) 03/24/2011 SAINZ DO, SHAY K V25.49 CONTRACEPTION SURVEILLANCE (REPEAT RX) 03/24/2011 SAINZ DO, SHAY K V25.49 CONTRACEPTION SURVEILLANCE (REPEAT RX) 03/24/2011 SAINZ DO, SHAY K V25.49 CONTRACEPTION SURVEILLANCE (REPEAT RX) 03/24/2011 SAINZ DO, SHAY K V25.49 CONTRACEPTION SURVEILLANCE (REPEAT RX) 03/24/2011 SAINZ DO, SHAY K V25.49 CONTRACEPTION SURVEILLANCE (REPEAT RX) 03/24/2011 SAINZ DO SHAY K V25.49 CONTRACEPTION SURVEILLANCE (REPEAT RX) 03/24/2011 SAINZ DO SHAY K V25.49 CONTRACEPTION SURVEILLANCE (REPEAT RX) 03/24/2011 ROBERTO FIGUEROA MD V25.49 CONTRACEPTION SURVEILLANCE (REPEAT RX) 03/24/2011 LAZARA MELTON APRN A V25.49 CONTRACEPTION SURVEILLANCE (REPEAT RX) 03/24/2011 JASON MELTON APRNIDI A V25.49 CONTRACEPTION SURVEILLANCE (REPEAT RX) 03/24/2011 SAINZ TAWNY HUGHESA K V25.49 CONTRACEPTION SURVEILLANCE (REPEAT RX) 03/24/2011 BENSON NAVARRO APRN V25.49 CONTRACEPTION SURVEILLANCE (REPEAT RX) 03/24/2011 JASON MELTON APRNIDI A V25.49 CONTRACEPTION SURVEILLANCE (REPEAT RX) 03/24/2011 SHAY SAINZ DO K V25.49 CONTRACEPTION SURVEILLANCE (REPEAT RX) 03/24/2011 BENSON NAVARRO APRN V25.49 CONTRACEPTION SURVEILLANCE (REPEAT RX) 03/24/2011 [facility] LAZARA A V25.49 CONTRACEPTION SURVEILLANCE (REPEAT RX) 03/24/2011 BENSON NAVARRO APRN R V25.49 CONTRACEPTION SURVEILLANCE (REPEAT RX) 06/07/2011 381.81 Eustachian Tube Dysfunction 06/07/2011 388.70 Otalgia 06/07/2011 788.1 Dysuria 06/07/2011 381.81 Eustachian Tube Dysfunction 06/07/2011 388.70 Otalgia 06/07/2011 788.1 Dysuria 06/07/2011 381.81 Eustachian Tube Dysfunction 06/07/2011 388.70 Otalgia 06/07/2011 788.1 Dysuria 06/07/2011 SAINZ DO, SHAY K 381.81 Eustachian Tube Dysfunction 06/07/2011 SAINZ DO, SHAY K 388.70 Otalgia 06/07/2011 SAINZ DO, SHAY K 788.1 Dysuria 06/07/2011 381.81 Eustachian Tube Dysfunction 06/07/2011 388.70 Otalgia 06/07/2011 788.1 Dysuria 06/07/2011 SAINZ DO, SHAY K 381.81 Eustachian Tube Dysfunction 06/07/2011 SAINZ DO, SHAY K 388.70 Otalgia 06/07/2011 SAINZ DO, SHAY K 788.1 Dysuria 06/07/2011 381.81 Eustachian Tube Dysfunction 06/07/2011 388.70 Otalgia 06/07/2011 788.1 Dysuria 06/07/2011 381.81 Eustachian Tube Dysfunction 06/07/2011 388.70 Otalgia 06/07/2011 788.1 Dysuria 06/07/2011 [facility] PHD, CASSIDY Castillo 381.81 Eustachian Tube Dysfunction 06/07/2011 [facility]J PHD, CASSIDY Castillo 388.70 Otalgia 06/07/2011 CASSIDY GUSTAFSON PHD 788.1 Dysuria 06/07/2011 SAINZ DOTAWNYA K 381.81 Eustachian Tube Dysfunction 06/07/2011 SAINZ DO SHAY K 388.70 Otalgia 06/07/2011 SAINZ DO, SHAY K 788.1 Dysuria 06/07/2011 DELMER GAMAPATRICE A 381.81 Eustachian Tube Dysfunction 06/07/2011 DOWELL NATANCSPATRICE A 388.70 Otalgia 06/07/2011 PATRICE GRANADOS 788.1 Dysuria 06/07/2011 PATRICE GRANADOS 381.81 Eustachian Tube Dysfunction 06/07/2011 PATRICE GRANADOS 388.70 Otalgia 06/07/2011 DOWELL PATRICE VAUGHAN 788.1 Dysuria 06/07/2011 PATRICE GRANADOS 381.81 Eustachian Tube Dysfunction 06/07/2011 DOWELL LSCS, PATRICE A 388.70 Otalgia 06/07/2011 DOWELL LSCS, PATRICE A 788.1 Dysuria 06/07/2011 COREY CLUB CONCIERGE, OTTONIEL A 381.81 Eustachian Tube Dysfunction 06/07/2011 JERAMIEE CLUB CONCIERGE, OTTONIEL A 388.70 Otalgia 06/07/2011 JERAMIEE CLUB CONCIERGE, OTTONIEL A 788.1 Dysuria 06/07/2011 DOWELL LSCS, PATRICE A 381.81 Eustachian Tube Dysfunction 06/07/2011 DOWELL LSCS, PATRICE A 388.70 Otalgia 06/07/2011 DOWELL LSCS, PATRICE A 788.1 Dysuria 06/07/2011 DOWELL LSCS, PATRICE A 381.81 Eustachian Tube Dysfunction 06/07/2011 DOWELL LSCS, PATRICE A 388.70 Otalgia 06/07/2011 DOWELL LSCS, PATRICE A 788.1 Dysuria 06/07/2011 COREY LAN OTTONIEL A 381.81 Eustachian Tube Dysfunction 06/07/2011 COREY CLUB CONCIERGE, OTTONIEL A 388.70 Otalgia 06/07/2011 COREY CLUB CONCIERGE, OTTONIEL A 788.1 Dysuria 06/07/2011 MELANIE CLUB CONCIERGE, BENSON R 381.81 Eustachian Tube Dysfunction 06/07/2011 MELANIE CLUB CONCIERGE, BENSON R 388.70 Otalgia 06/07/2011 MELANIE CLUB CONCIERGE, BENSON R 788.1 Dysuria 06/07/2011 DOWELL LSCS, PATRICE A 381.81 Eustachian Tube Dysfunction 06/07/2011 DOWELL LSCS, PATRICE A 388.70 Otalgia 06/07/2011 DOWELL LSCS, PATRICE A 788.1 Dysuria 06/07/2011 MELANIE CLUB CONCIERGE, BENSON R 381.81 Eustachian Tube Dysfunction 06/07/2011 MELANIE CLUB CONCIERGE, BENSON R 388.70 Otalgia 06/07/2011 MELANIE CLUB CONCIERGE, BENSON R 788.1 Dysuria 06/07/2011 MELANIE CLUB CONCIERGE, BENSON R 381.81 Eustachian Tube Dysfunction 06/07/2011 MELANIE CLUB CONCIERGE, BENSON R 388.70 Otalgia 06/07/2011 MELANIE CLUB CONCIERGE, BENSON R 788.1 Dysuria 06/07/2011 SAI PEREZ MD 381.81 Eustachian Tube Dysfunction 06/07/2011 SAI PEREZ MD 388.70 Otalgia 06/07/2011 SAI PEREZ MD 788.1 Dysuria 06/07/2011 SAINZ DO, SHAY K 381.81 Eustachian Tube Dysfunction 06/07/2011 SAINZ DO, SHAY K 388.70 Otalgia 06/07/2011 SAINZ DO, SHAY K 788.1 Dysuria 06/07/2011 LINH CL[facility] CONCIERGE, LAZARA A 381.81 Eustachian Tube Dysfunction 06/07/2011 LINH CL[facility] CONCIERGE, LAZARA A 388.70 Otalgia 06/07/2011 LINHJim LAN LAZARA A 788.1 Dysuria 06/07/2011 SAINZ DO, SHAY K 381.81 Eustachian Tube Dysfunction 06/07/2011 SAINZ DO, SHAY K 388.70 Otalgia 06/07/2011 SAINZ DO, SHAY K 788.1 Dysuria 06/07/2011 LINH [facility] CONCIERGE LAZARA A 381.81 Eustachian Tube Dysfunction 06/07/2011 LINH CL[facility] CONCIERGE, LAZARA A 388.70 Otalgia 06/07/2011 LINHJim LAN LAZARA A 788.1 Dysuria 06/07/2011 LIN[facility] CONCIERGE LAZARA A 381.81 Eustachian Tube Dysfunction 06/07/2011 LINHJim LAN LAZARA A 388.70 Otalgia 06/07/2011 LINHJim LAN LAZARA A 788.1 Dysuria 06/07/2011 SAINZ DO, SHAY K 381.81 Eustachian Tube Dysfunction 06/07/2011 SAINZ DO, SHAY K 388.70 Otalgia 06/07/2011 SAINZ DO, SHAY K 788.1 Dysuria 06/07/2011 MIKE ANDERSON APRN 381.81 Eustachian Tube Dysfunction 06/07/2011 MIKE ANDERSON APRN 388.70 Otalgia 06/07/2011 MIKE ANDERSON APRN 788.1 Dysuria 06/07/2011 SAINZ DO, SHAY K 381.81 Eustachian Tube Dysfunction 06/07/2011 SAINZ DO, SHAY K 388.70 Otalgia 06/07/2011 SAINZ DO, SHAY K 788.1 Dysuria 06/07/2011 SAINZ DO, SHAY K 381.81 Eustachian Tube Dysfunction 06/07/2011 SAINZ DO, SHAY K 388.70 Otalgia 06/07/2011 SAINZ DO, SHAY K 788.1 Dysuria 06/07/2011 SAINZ DO, SHAY K 381.81 Eustachian Tube Dysfunction 06/07/2011 SAINZ DO, SHAY K 388.70 Otalgia 06/07/2011 SAINZ DO, SHAY K 788.1 Dysuria 06/07/2011 SAINZ DO, SHAY K 381.81 Eustachian Tube Dysfunction 06/07/2011 SAINZ DO, SHAY K 388.70 Otalgia 06/07/2011 SAINZ DO, SHAY K 788.1 Dysuria 06/07/2011 SAINZ DO, SHAY K 381.81 Eustachian Tube Dysfunction 06/07/2011 SAINZ DO, SHAY K 388.70 Otalgia 06/07/2011 SAINZ DO, SHAY K 788.1 Dysuria 06/07/2011 SAINZ DO, SHAY K 381.81 Eustachian Tube Dysfunction 06/07/2011 SAINZ DO, SHAY K 388.70 Otalgia 06/07/2011 SAINZ DO, SHAY K 788.1 Dysuria 06/07/2011 SAINZ DO, SHAY K 381.81 Eustachian Tube Dysfunction 06/07/2011 SAINZ DO, SHAY K 388.70 Otalgia 06/07/2011 SAINZ DO, SHAY K 788.1 Dysuria 06/07/2011 SAINZ DO, SHAY K 381.81 Eustachian Tube Dysfunction 06/07/2011 SAINZ DO, SHAY K 388.70 Otalgia 06/07/2011 SAINZ DO, SHAY K 788.1 Dysuria 06/07/2011 ROBERTO FIGUEROA MD 381.81 Eustachian Tube Dysfunction 06/07/2011 ROBERTO FIGUEROA MD 388.70 Otalgia 06/07/2011 ROBERTO FIGUEROA MD 788.1 Dysuria 06/07/2011 LINH LAN, LAZARA A 381.81 Eustachian Tube Dysfunction 06/07/2011 LAZARA MELTON APRN A 388.70 Otalgia 06/07/2011 LINH LAN, LAZARA A 788.1 Dysuria 06/07/2011 LIN[facility] CONCIERGE, LAZARA A 381.81 Eustachian Tube Dysfunction 06/07/2011 LIN[facility] CONCIERGE, LAZARA A 388.70 Otalgia 06/07/2011 LIN[facility] CONCIERGE, LAZARA A 788.1 Dysuria 06/07/2011 SAINZ DO, SHAY K 381.81 Eustachian Tube Dysfunction 06/07/2011 SAINZ DO, SHAY K 388.70 Otalgia 06/07/2011 SAINZ DO, SHAY K 788.1 Dysuria 06/07/2011 MELANIE LAN, BENSON R 381.81 Eustachian Tube Dysfunction 06/07/2011 BENSON NAVARRO APRN R 388.70 Otalgia 06/07/2011 MELANIE LAN BENSON R 788.1 Dysuria 06/07/2011 LINH LAN, LAZARA A 381.81 Eustachian Tube Dysfunction 06/07/2011 JASON MELTON APRNIDI A 388.70 Otalgia 06/07/2011 LINH APRN, LAZARA A 788.1 Dysuria 06/07/2011 SAINZ DO, SHAY K 381.81 Eustachian Tube Dysfunction 06/07/2011 SAINZ DO, SHAY K 388.70 Otalgia 06/07/2011 SAINZ DO, SHAY K 788.1 Dysuria 06/07/2011 MELANIE LAN BENSON R 381.81 Eustachian Tube Dysfunction 06/07/2011 MELANIE LAN BENSON R 388.70 Otalgia 06/07/2011 MELANIE LAN BENSON R 788.1 Dysuria 06/07/2011 LINH LAN, LAZARA A 381.81 Eustachian Tube Dysfunction 06/07/2011 LINH LAN, LAZARA A 388.70 Otalgia 06/07/2011 LINH LAN, LAZARA A 788.1 Dysuria 06/07/2011 MELANIE LAN BENSON R 381.81 Eustachian Tube Dysfunction 06/07/2011 MELANIE LAN BENSON R 388.70 Otalgia 06/07/2011 RALPH NAVARRO APRNINA R 788.1 Dysuria 06/23/2011 724.2 Back Pain, Lower 06/23/2011 724.2 Back Pain, Lower 06/23/2011 724.2 Back Pain, Lower 06/23/2011 SAINZ DO, SHAY K 724.2 Back Pain, Lower 06/23/2011 724.2 Back Pain, Lower 06/23/2011 SAINZ DO, SHAY K 724.2 Back Pain, Lower 06/23/2011 724.2 Back Pain, Lower 06/23/2011 724.2 Back Pain, Lower 06/23/2011 SJ FINK, CASSIDY Castillo 724.2 Back Pain, Lower 06/23/2011 SAINZ DO, SHAY K 724.2 Back Pain, Lower 06/23/2011 DOWELL LSCS, PATRICE A 724.2 Back Pain, Lower 06/23/2011 DOWELL LSCS, PATRICE A 724.2 Back Pain, Lower 06/23/2011 DOWELL LSCS, PATRICE A 724.2 Back Pain, Lower 06/23/2011 RAJNIMESHE CLUB CONCIERGE, OTTONIEL A 724.2 Back Pain, Lower 06/23/2011 DOWELL LSCS, PATRICE A 724.2 Back Pain, Lower 06/23/2011 DOWELL LSCS, PATRICE A 724.2 Back Pain, Lower 06/23/2011 RAJOTTE CLUB CONCIERGE, OTTONIEL A 724.2 Back Pain, Lower 06/23/2011 MELANIE CLUB CONCIERGE, BENSON R 724.2 Back Pain, Lower 06/23/2011 DOWELL LSCS, PATRICE A 724.2 Back Pain, Lower 06/23/2011 MELANIE CL[facility] CONCIERGE, BENSON R 724.2 Back Pain, Lower 06/23/2011 MELANIE CL[facility] CONCIERGE, BENSON R 724.2 Back Pain, Lower 06/23/2011 SAI PEREZ MD 724.2 Back Pain, Lower 06/23/2011 SAINZ DO, SHAY K 724.2 Back Pain, Lower 06/23/2011 LINH CL[facility] CONCIERGE, LAZARA A 724.2 Back Pain, Lower 06/23/2011 SAINZ DO, SHAY K 724.2 Back Pain, Lower 06/23/2011 LIN[facility] CONCIERGE, LAZARA A 724.2 Back Pain, Lower 06/23/2011 LIN[facility] CONCIERGE, LAZARA A 724.2 Back Pain, Lower 06/23/2011 SAINZ DO, SHAY K 724.2 Back Pain, Lower 06/23/2011 MIKE ANDERSON APRN 724.2 Back Pain, Lower 06/23/2011 SAINZ DO, SHAY K 724.2 Back Pain, Lower 06/23/2011 SAINZ DO, SHAY K 724.2 Back Pain, Lower 06/23/2011 SAINZ DO, SHAY K 724.2 Back Pain, Lower 06/23/2011 SAINZ DO, SHAY K 724.2 Back Pain, Lower 06/23/2011 SAINZ DO, SHAY K 724.2 Back Pain, Lower 06/23/2011 SAINZ DO, SHAY K 724.2 Back Pain, Lower 06/23/2011 SAINZ DO, SHAY K 724.2 Back Pain, Lower 06/23/2011 SAINZ DO, SHAY K 724.2 Back Pain, Lower 06/23/2011 HENRY OCNROY, ROBERTO Fernandez 724.2 Back Pain, Lower 06/23/2011 LINH LAN, LAZARA A 724.2 Back Pain, Lower 06/23/2011 LINH LAN, LAZARA A 724.2 Back Pain, Lower 06/23/2011 SAINZ DO, SHAY K 724.2 Back Pain, Lower 06/23/2011 MELANIE CL[facility] CONCIERGE, BENSON R 724.2 Back Pain, Lower 06/23/2011 LINH LAN, LAZARA A 724.2 Back Pain, Lower 06/23/2011 SAINZ DO, SHAY K 724.2 Back Pain, Lower 06/23/2011 MELANIE [facility] CONCIERGE, BENSON R 724.2 Back Pain, Lower 06/23/2011 LINH LAN, LAZARA A 724.2 Back Pain, Lower 06/23/2011 MELANIE CL[facility] CONCIERGE, BENSON R 724.2 Back Pain, Lower 07/19/2011 616.10 Vaginitis Vulvovaginitis Unspecified 07/19/2011 786.05 Shortness Of Breath 07/19/2011 616.10 Vaginitis Vulvovaginitis Unspecified 07/19/2011 786.05 Shortness Of Breath 07/19/2011 616.10 Vaginitis Vulvovaginitis Unspecified 07/19/2011 786.05 Shortness Of Breath 07/19/2011 SAINZ DO, SHAY K 616.10 Vaginitis Vulvovaginitis Unspecified 07/19/2011 SHAY SAINZ DO 786.05 Shortness Of Breath 07/19/2011 616.10 Vaginitis Vulvovaginitis Unspecified 07/19/2011 786.05 Shortness Of Breath 07/19/2011 SHAY SAINZ DO K 616.10 Vaginitis Vulvovaginitis Unspecified 07/19/2011 SHAY SAINZ DO K 786.05 Shortness Of Breath 07/19/2011 616.10 Vaginitis Vulvovaginitis Unspecified 07/19/2011 786.05 Shortness Of Breath 07/19/2011 616.10 Vaginitis Vulvovaginitis Unspecified 07/19/2011 786.05 Shortness Of Breath 07/19/2011 SJ FINK, CASSIDY Castillo 616.10 Vaginitis Vulvovaginitis Unspecified 07/19/2011 SJ FINK, CASSIDY Castillo 786.05 Shortness Of Breath 07/19/2011 SHAY SAINZ DO 616.10 Vaginitis Vulvovaginitis Unspecified 07/19/2011 SHAY ASINZ DO 786.05 Shortness Of Breath 07/19/2011 [facility], PATRICE A 616.10 Vaginitis Vulvovaginitis Unspecified 07/19/2011 [facility], PATRICE A 786.05 Shortness Of Breath 07/19/2011 [facility], PATRICE A 616.10 Vaginitis Vulvovaginitis Unspecified 07/19/2011 [facility], PATRICE A 786.05 Shortness Of Breath 07/19/2011 [facility], PATRICE A 616.10 Vaginitis Vulvovaginitis Unspecified 07/19/2011 [facility], PATRICE A 786.05 Shortness Of Breath 07/19/2011 OTTONIEL NICOLE APRN A 616.10 Vaginitis Vulvovaginitis Unspecified 07/19/2011 COREY LAN OTTONIEL A 786.05 Shortness Of Breath 07/19/2011 [facility], PATRICE A 616.10 Vaginitis Vulvovaginitis Unspecified 07/19/2011 [facility], PATRICE A 786.05 Shortness Of Breath 07/19/2011 [facility], PATRICE A 616.10 Vaginitis Vulvovaginitis Unspecified 07/19/2011 [facility], PATRICE A 786.05 Shortness Of Breath 07/19/2011 RAJOTTE [facility] CONCIERGE, OTTONIEL A 616.10 Vaginitis Vulvovaginitis Unspecified 07/19/2011 JERAMIEE CL[facility] CONCIERGE, OTTONIEL A 786.05 Shortness Of Breath 07/19/2011 MELANIE [facility] CONCIERGE, BENSON R 616.10 Vaginitis Vulvovaginitis Unspecified 07/19/2011 MELANIE CL[facility] CONCIERGE, BENSON R 786.05 Shortness Of Breath 07/19/2011 [facility], PATRICE A 616.10 Vaginitis Vulvovaginitis Unspecified 07/19/2011 [facility], PATRICE A 786.05 Shortness Of Breath 07/19/2011 MELANIE [facility] CONCIERGE, BENSON R 616.10 Vaginitis Vulvovaginitis Unspecified 07/19/2011 MELANIE CL[facility] CONCIERGE, BENSON R 786.05 Shortness Of Breath 07/19/2011 MELANIE CL[facility] CONCIERGE, BENSON R 616.10 Vaginitis Vulvovaginitis Unspecified 07/19/2011 MELANIE [facility] CONCIERGE, BENSON R 786.05 Shortness Of Breath 07/19/2011 SAI PEREZ MD 616.10 Vaginitis Vulvovaginitis Unspecified 07/19/2011 SAI PEREZ MD 786.05 Shortness Of Breath 07/19/2011 SHAY SAINZ DO K 616.10 Vaginitis Vulvovaginitis Unspecified 07/19/2011 SHAY SAINZ DO K 786.05 Shortness Of Breath 07/19/2011 LINH APRN, LAZARA A 616.10 Vaginitis Vulvovaginitis Unspecified 07/19/2011 LINH CL[facility] CONCIERGE, LAZARA A 786.05 Shortness Of Breath 07/19/2011 SHAY SAINZ DO K 616.10 Vaginitis Vulvovaginitis Unspecified 07/19/2011 SHAY SAINZ DO K 786.05 Shortness Of Breath 07/19/2011 LIN[facility] CONCIERGE, LAZARA A 616.10 Vaginitis Vulvovaginitis Unspecified 07/19/2011 LINH [facility] CONCIERGE, LAZARA A 786.05 Shortness Of Breath 07/19/2011 LIN[facility] CONCIERGE, LAZARA A 616.10 Vaginitis Vulvovaginitis Unspecified 07/19/2011 LAZARA MELTON APRN 786.05 Shortness Of Breath 07/19/2011 SAINZ DO, SHAY K 616.10 Vaginitis Vulvovaginitis Unspecified 07/19/2011 SAINZ DO, SHAY K 786.05 Shortness Of Breath 07/19/2011 MIKE ANDERSON APRN 616.10 Vaginitis Vulvovaginitis Unspecified 07/19/2011 MIKE ANDERSON APRN 786.05 Shortness Of Breath 07/19/2011 SAINZ DO, SHAY K 616.10 Vaginitis Vulvovaginitis Unspecified 07/19/2011 SAINZ DO, SHAY K 786.05 Shortness Of Breath 07/19/2011 SAINZ DO, SHAY K 616.10 Vaginitis Vulvovaginitis Unspecified 07/19/2011 SAINZ DO, SHAY K 786.05 Shortness Of Breath 07/19/2011 SAINZ DO, SHAY K 616.10 Vaginitis Vulvovaginitis Unspecified 07/19/2011 SAINZ DO, SHAY K 786.05 Shortness Of Breath 07/19/2011 SAINZ DO, SHAY K 616.10 Vaginitis Vulvovaginitis Unspecified 07/19/2011 SAINZ DO, SHAY K 786.05 Shortness Of Breath 07/19/2011 SAINZ DO, SHAY K 616.10 Vaginitis Vulvovaginitis Unspecified 07/19/2011 SAINZ DO, SHAY K 786.05 Shortness Of Breath 07/19/2011 SAINZ DO, SHAY K 616.10 Vaginitis Vulvovaginitis Unspecified 07/19/2011 SAINZ DO, SHAY K 786.05 Shortness Of Breath 07/19/2011 SAINZ DO, SHAY K 616.10 Vaginitis Vulvovaginitis Unspecified 07/19/2011 SAINZ DO, SHAY K 786.05 Shortness Of Breath 07/19/2011 SAINZ DO, SHAY K 616.10 Vaginitis Vulvovaginitis Unspecified 07/19/2011 SAINZ DO, SHAY K 786.05 Shortness Of Breath 07/19/2011 HENRY CONROY, ROBERTO Fernandez 616.10 Vaginitis Vulvovaginitis Unspecified 07/19/2011 ROBERTO FIGUEROA MD 786.05 Shortness Of Breath 07/19/2011 [facility] CONCIERGE, LAZARA A 616.10 Vaginitis Vulvovaginitis Unspecified 07/19/2011 LIN[facility] CONCIERGE, LAZARA A 786.05 Shortness Of Breath 07/19/2011 LIN[facility] CONCIERGE, LAZARA A 616.10 Vaginitis Vulvovaginitis Unspecified 07/19/2011 LINH [facility] CONCIERGE, LAZARA A 786.05 Shortness Of Breath 07/19/2011 SHAY SAINZ DO K 616.10 Vaginitis Vulvovaginitis Unspecified 07/19/2011 SHAY SAINZ DO K 786.05 Shortness Of Breath 07/19/2011 MELANIE [facility] CONCIERGE, BENSON R 616.10 Vaginitis Vulvovaginitis Unspecified 07/19/2011 MELANIE BREWERN, BENSON R 786.05 Shortness Of Breath 07/19/2011 LIN[facility] CONCIERGE, LAZARA A 616.10 Vaginitis Vulvovaginitis Unspecified 07/19/2011 LIN[facility] CONCIERGE, LAZARA A 786.05 Shortness Of Breath 07/19/2011 SHAY SAINZ DO K 616.10 Vaginitis Vulvovaginitis Unspecified 07/19/2011 TAWNY SAINZ DOA K 786.05 Shortness Of Breath 07/19/2011 MELANIE [facility] CONCIERGE, BENSON R 616.10 Vaginitis Vulvovaginitis Unspecified 07/19/2011 MELANIE [facility] CONCIERGE, BENSON R 786.05 Shortness Of Breath 07/19/2011 LINH [facility] CONCIERGE, LAZARA A 616.10 Vaginitis Vulvovaginitis Unspecified 07/19/2011 LIN[facility] CONCIERGE, LAZARA A 786.05 Shortness Of Breath 07/19/2011 MELANIE [facility] CONCIERGE, BENSON R 616.10 Vaginitis Vulvovaginitis Unspecified 07/19/2011 MELANIE BREWERN, BENSON R 786.05 Shortness Of Breath 08/16/2011 079.99 Viral Syndrome 08/16/2011 462 Pharyngitis Acute 08/16/2011 079.99 Viral Syndrome 08/16/2011 462 Pharyngitis Acute 08/16/2011 079.99 Viral Syndrome 08/16/2011 462 Pharyngitis Acute 08/16/2011 SHAY SAINZ DO K 079.99 Viral Syndrome 08/16/2011 EMELI HUGHES SHAY K 462 Pharyngitis Acute 08/16/2011 079.99 Viral Syndrome 08/16/2011 462 Pharyngitis Acute 08/16/2011 EMELI HUGHESTAWNYA K 079.99 Viral Syndrome 08/16/2011 EMELI HUGHES SHAY K 462 Pharyngitis Acute 08/16/2011 079.99 Viral Syndrome 08/16/2011 462 Pharyngitis Acute 08/16/2011 079.99 Viral Syndrome 08/16/2011 462 Pharyngitis Acute 08/16/2011 CASSIDY GUSTAFSON PHD 079.99 Viral Syndrome 08/16/2011 CASSIDY GUSTAFSON PHD 462 Pharyngitis Acute 08/16/2011 EMELI HUGHESSHAY 079.99 Viral Syndrome 08/16/2011 SAINZ SHAY HUGHES K 462 Pharyngitis Acute 08/16/2011 [facility], PATRICE A 079.99 Viral Syndrome 08/16/2011 [facility], PATRICE A 462 Pharyngitis Acute 08/16/2011 [facility], PATRICE A 079.99 Viral Syndrome 08/16/2011 [facility], PATRICE A 462 Pharyngitis Acute 08/16/2011 [facility], PATRICE A 079.99 Viral Syndrome 08/16/2011 [facility], PATRICE A 462 Pharyngitis Acute 08/16/2011 [facility], OTTONIEL A 079.99 Viral Syndrome 08/16/2011 [facility]ER[facility], OTTONIEL A 462 Pharyngitis Acute 08/16/2011 [facility], PATRICE A 079.99 Viral Syndrome 08/16/2011 [facility], PATRICE A 462 Pharyngitis Acute 08/16/2011 [facility], PATRICE A 079.99 Viral Syndrome 08/16/2011 [facility], PATRICE A 462 Pharyngitis Acute 08/16/2011 [facility]ERGE, OTTONIEL A 079.99 Viral Syndrome 08/16/2011 [facility] CONCIERGE, OTTONIEL A 462 Pharyngitis Acute 08/16/2011 M[facility], BENSON R 079.99 Viral Syndrome 08/16/2011 M[facility] CONCIERGE, BENSON R 462 Pharyngitis Acute 08/16/2011 [facility], PATRICE A 079.99 Viral Syndrome 08/16/2011 [facility], PATRICE A 462 Pharyngitis Acute 08/16/2011 M[facility] CON[facility]ERGE, BENSON R 079.99 Viral Syndrome 08/16/2011 MEL[facility] CONCIERGE, BENSON R 462 Pharyngitis Acute 08/16/2011 M[facility] CON[facility]ERGE, BENSON R 079.99 Viral Syndrome 08/16/2011 M[facility]ERGE, BENSON R 462 Pharyngitis Acute 08/16/2011 SAI PEREZ MD 079.99 Viral Syndrome 08/16/2011 SAI PEREZ MD 462 Pharyngitis Acute 08/16/2011 SAINZ DO SHAY K 079.99 Viral Syndrome 08/16/2011 SAINZ DO SHAY K 462 Pharyngitis Acute 08/16/2011 [facility], LAZARA A 079.99 Viral Syndrome 08/16/2011 [facility], LAZARA A 462 Pharyngitis Acute 08/16/2011 SAINZ TAWNY HUGHESA K 079.99 Viral Syndrome 08/16/2011 SAINZ DO SHAY K 462 Pharyngitis Acute 08/16/2011 [facility], LAZARA A 079.99 Viral Syndrome 08/16/2011 [facility] CON[facility], LAZARA A 462 Pharyngitis Acute 08/16/2011 [facility] CON[facility]ERGE, LAZARA A 079.99 Viral Syndrome 08/16/2011 [facility], LAZARA A 462 Pharyngitis Acute 08/16/2011 TAWNY SAINZ DOA K 079.99 Viral Syndrome 08/16/2011 SAINZ DOTAWNYA K 462 Pharyngitis Acute 08/16/2011 MIKE ANDERSON APRN 079.99 Viral Syndrome 08/16/2011 MIKE ANDERSON APRN 462 Pharyngitis Acute 08/16/2011 SAINZ DOTAWNYA K 079.99 Viral Syndrome 08/16/2011 SAINZ DO SHAY K 462 Pharyngitis Acute 08/16/2011 SAINZ DO SHAY K 079.99 Viral Syndrome 08/16/2011 SAINZ DO SHAY K 462 Pharyngitis Acute 08/16/2011 SAINZ DOTAWNYA K 079.99 Viral Syndrome 08/16/2011 SAINZ DO, SHAY K 462 Pharyngitis Acute 08/16/2011 SAINZ DO, SHAY K 079.99 Viral Syndrome 08/16/2011 SAINZ DO, SHAY K 462 Pharyngitis Acute 08/16/2011 SAINZ DO, SHAY K 079.99 Viral Syndrome 08/16/2011 SAINZ DO, SHAY K 462 Pharyngitis Acute 08/16/2011 SAINZ DO, SHAY K 079.99 Viral Syndrome 08/16/2011 SAINZ DO, SHAY K 462 Pharyngitis Acute 08/16/2011 SAINZ DO, SHAY K 079.99 Viral Syndrome 08/16/2011 SAINZ DO, SHAY K 462 Pharyngitis Acute 08/16/2011 SAINZ DO, SHAY K 079.99 Viral Syndrome 08/16/2011 SAINZ DO, SHAY K 462 Pharyngitis Acute 08/16/2011 ROBERTO FIGUEROA MD N 079.99 Viral Syndrome 08/16/2011 ROBERTO FIGUEROA MD 462 Pharyngitis Acute 08/16/2011 [facility], LAZARA A 079.99 Viral Syndrome 08/16/2011 [facility] CON[facility], LAZARA A 462 Pharyngitis Acute 08/16/2011 [facility] CON[facility]ER[facility], LAZARA A 079.99 Viral Syndrome 08/16/2011 [facility] CONCIERGE, LAZARA A 462 Pharyngitis Acute 08/16/2011 SAINZ DO, SHAY K 079.99 Viral Syndrome 08/16/2011 SAINZ DO, SHAY K 462 Pharyngitis Acute 08/16/2011 [facility], BENSON R 079.99 Viral Syndrome 08/16/2011 MEL[facility], BENSON R 462 Pharyngitis Acute 08/16/2011 [facility], LAZARA A 079.99 Viral Syndrome 08/16/2011 [facility], LAZARA A 462 Pharyngitis Acute 08/16/2011 SAINZ DO, SHAY K 079.99 Viral Syndrome 08/16/2011 SAINZ DO, SHAY K 462 Pharyngitis Acute 08/16/2011 MEL[facility], BENSON R 079.99 Viral Syndrome 08/16/2011 [facility], BENSON R 462 Pharyngitis Acute 08/16/2011 [facility], LAZARA A 079.99 Viral Syndrome 08/16/2011 LINH LAN LAZARA A 462 Pharyngitis Acute 08/16/2011 MELANIE LAN, BENSON R 079.99 Viral Syndrome 08/16/2011 MELANIE LAN, BENSON R 462 Pharyngitis Acute 09/06/2011 Ot 724.2 09/06/2011 Ot V57.1 12/10/2011 599.0 Urinary Tract Infection 12/10/2011 599.0 Urinary Tract Infection 12/10/2011 599.0 Urinary Tract Infection 12/10/2011 SAINZ DO SHAY K 599.0 Urinary Tract Infection 12/10/2011 599.0 Urinary Tract Infection 12/10/2011 SAINZ DO, SHAY K 599.0 Urinary Tract Infection 12/10/2011 599.0 Urinary Tract Infection 12/10/2011 599.0 Urinary Tract Infection 12/10/2011 SJ FINK, CASSIDY Castillo 599.0 Urinary Tract Infection 12/10/2011 EMELI HUGHES SHAY K 599.0 Urinary Tract Infection 12/10/2011 DOWELL LSCS, PATRICE A 599.0 Urinary Tract Infection 12/10/2011 DOWELL LSCS, PATRICE A 599.0 Urinary Tract Infection 12/10/2011 DOWELL LSCS, PATRICE A 599.0 Urinary Tract Infection 12/10/2011 COREY LAN, OTTONIEL A 599.0 Urinary Tract Infection 12/10/2011 DOWELL LSCS, PATRICE A 599.0 Urinary Tract Infection 12/10/2011 DOWELL LSCS, PATRICE A 599.0 Urinary Tract Infection 12/10/2011 COREY LAN, OTTONIEL A 599.0 Urinary Tract Infection 12/10/2011 MELANIE LAN, BENSON R 599.0 Urinary Tract Infection 12/10/2011 DOWELL LSCS, PATRICE A 599.0 Urinary Tract Infection 12/10/2011 RALPH NAVARRO APRNINA R 599.0 Urinary Tract Infection 12/10/2011 MELANIE LAN, BENSON R 599.0 Urinary Tract Infection 12/10/2011 CHRIS CONROY, SAI 599.0 Urinary Tract Infection 12/10/2011 EMELI HUGHES SHAY K 599.0 Urinary Tract Infection 12/10/2011 JASON MELTON APRNIDI A 599.0 Urinary Tract Infection 12/10/2011 SAINZ DO, SHAY K 599.0 Urinary Tract Infection 12/10/2011 JASON MELTON APRNIDI A 599.0 Urinary Tract Infection 12/10/2011 JASON MELTON APRNIDI A 599.0 Urinary Tract Infection 12/10/2011 SAINZ DO, SHAY K 599.0 Urinary Tract Infection 12/10/2011 MIKE ANDERSON APRN 599.0 Urinary Tract Infection 12/10/2011 SAINZ DO, SHAY K 599.0 Urinary Tract Infection 12/10/2011 SAINZ DO, SHAY K 599.0 Urinary Tract Infection 12/10/2011 SAINZ DO, SHAY K 599.0 Urinary Tract Infection 12/10/2011 SAINZ DO, SHAY K 599.0 Urinary Tract Infection 12/10/2011 SAINZ DO, SHAY K 599.0 Urinary Tract Infection 12/10/2011 SAINZ DO, SHAY K 599.0 Urinary Tract Infection 12/10/2011 SAINZ DO, SHAY K 599.0 Urinary Tract Infection 12/10/2011 SAINZ DO, SHAY K 599.0 Urinary Tract Infection 12/10/2011 ROBERTO FIGUEROA MD N 599.0 Urinary Tract Infection 12/10/2011 JASON MELTON APRNIDI A 599.0 Urinary Tract Infection 12/10/2011 JASON MELTON APRNIDI A 599.0 Urinary Tract Infection 12/10/2011 SAINZ DO, SHAY K 599.0 Urinary Tract Infection 12/10/2011 MELANIE LAN BENSON R 599.0 Urinary Tract Infection 12/10/2011 LAZARA MELTON APRN A 599.0 Urinary Tract Infection 12/10/2011 SAINZ DO, SHAY K 599.0 Urinary Tract Infection 12/10/2011 MELANIE LAN BENSON R 599.0 Urinary Tract Infection 12/10/2011 JASON MELTON APRNIDI A 599.0 Urinary Tract Infection 12/10/2011 MELANIE LAN BENSON R 599.0 Urinary Tract Infection 04/06/2012 008.8 GASTROENTERITIS, VIRAL 04/06/2012 477.0 ALLERGIC RHINITIS DUE TO POLLEN 04/06/2012 008.8 GASTROENTERITIS, VIRAL 04/06/2012 477.0 ALLERGIC RHINITIS DUE TO POLLEN 04/06/2012 008.8 Gastroenteritis, Viral 04/06/2012 477.0 ALLERGIC RHINITIS DUE TO POLLEN 04/06/2012 SAINZ DO, SHAY K 008.8 Gastroenteritis, Viral 04/06/2012 SAINZ DO, SHAY K 477.0 ALLERGIC RHINITIS DUE TO POLLEN 04/06/2012 008.8 Gastroenteritis, Viral 04/06/2012 477.0 ALLERGIC RHINITIS DUE TO POLLEN 04/06/2012 SAINZ DO, SHAY K 008.8 Gastroenteritis, Viral 04/06/2012 SAINZ DO, SHAY K 477.0 ALLERGIC RHINITIS DUE TO POLLEN 04/06/2012 008.8 Gastroenteritis, Viral 04/06/2012 477.0 ALLERGIC RHINITIS DUE TO POLLEN 04/06/2012 008.8 Gastroenteritis, Viral 04/06/2012 477.0 ALLERGIC RHINITIS DUE TO POLLEN 04/06/2012 CASSIDY GUSTAFSON PHD 008.8 Gastroenteritis, Viral 04/06/2012 CASSIDY GUSTAFSON PHD 477.0 ALLERGIC RHINITIS DUE TO POLLEN 04/06/2012 SAINZ DO, SHAY K 008.8 Gastroenteritis, Viral 04/06/2012 SAINZ DO, SHAY K 477.0 ALLERGIC RHINITIS DUE TO POLLEN 04/06/2012 DOWELL LSCS, PATRICE A 008.8 Gastroenteritis, Viral 04/06/2012 DOWELL LSCS, PATRICE A 477.0 ALLERGIC RHINITIS DUE TO POLLEN 04/06/2012 DOWELL LSCS, PATRICE A 008.8 Gastroenteritis, Viral 04/06/2012 DOWELL LSCS, PATRICE A 477.0 ALLERGIC RHINITIS DUE TO POLLEN 04/06/2012 DOWELL LSCS, PATRICE A 008.8 Gastroenteritis, Viral 04/06/2012 DOWELL LSCS, PATRICE A 477.0 ALLERGIC RHINITIS DUE TO POLLEN 04/06/2012 [facility], OTTONIEL A 008.8 Gastroenteritis, Viral 04/06/2012 [facility], OTTONIEL A 477.0 ALLERGIC RHINITIS DUE TO POLLEN 04/06/2012 DOWELL LSCS, PATRICE A 008.8 Gastroenteritis, Viral 04/06/2012 DOWELL LSCS, PATRICE A 477.0 ALLERGIC RHINITIS DUE TO POLLEN 04/06/2012 DOWELL LSCS, PATRICE A 008.8 Gastroenteritis, Viral 04/06/2012 DOWELL LSCS, PATRICE A 477.0 ALLERGIC RHINITIS DUE TO POLLEN 04/06/2012 [facility], OTTONIEL A 008.8 Gastroenteritis, Viral 04/06/2012 [facility], OTTONIEL A 477.0 ALLERGIC RHINITIS DUE TO POLLEN 04/06/2012 [facility], BENSON R 008.8 Gastroenteritis, Viral 04/06/2012 [facility], BENSON R 477.0 ALLERGIC RHINITIS DUE TO POLLEN 04/06/2012 [facility] [place] PATRICE A 008.8 Gastroenteritis, Viral 04/06/2012 DOWELL LSCS, PATRICE A 477.0 ALLERGIC RHINITIS DUE TO POLLEN 04/06/2012 [facility], BENSON R 008.8 Gastroenteritis, Viral 04/06/2012 [facility], BENSON R 477.0 ALLERGIC RHINITIS DUE TO POLLEN 04/06/2012 [facility], BENSON R 008.8 Gastroenteritis, Viral 04/06/2012 [facility], BENSON R 477.0 ALLERGIC RHINITIS DUE TO POLLEN 04/06/2012 SAI PEREZ MD 008.8 Gastroenteritis, Viral 04/06/2012 SAI PEREZ MD 477.0 ALLERGIC RHINITIS DUE TO POLLEN 04/06/2012 EMELI HUGHES SHAY K 008.8 Gastroenteritis, Viral 04/06/2012 EMELI DO, SHAY K 477.0 ALLERGIC RHINITIS DUE TO POLLEN 04/06/2012 [facility], LAZARA A 008.8 Gastroenteritis, Viral 04/06/2012 [facility], LAZARA A 477.0 ALLERGIC RHINITIS DUE TO POLLEN 04/06/2012 SAINZ DO, SHAY K 008.8 Gastroenteritis, Viral 04/06/2012 SAINZ DO, SHAY K 477.0 ALLERGIC RHINITIS DUE TO POLLEN 04/06/2012 [facility], LAZARA A 008.8 Gastroenteritis, Viral 04/06/2012 [facility], LAZARA A 477.0 ALLERGIC RHINITIS DUE TO POLLEN 04/06/2012 [facility], LAZARA A 008.8 Gastroenteritis, Viral 04/06/2012 [facility], LAZARA A 477.0 ALLERGIC RHINITIS DUE TO POLLEN 04/06/2012 SAINZ DO, SHAY K 008.8 Gastroenteritis, Viral 04/06/2012 SAINZ DO, SHAY K 477.0 ALLERGIC RHINITIS DUE TO POLLEN 04/06/2012 MIKE ANDERSON APRN 008.8 Gastroenteritis, Viral 04/06/2012 MIKE ANDERSON APRN 477.0 ALLERGIC RHINITIS DUE TO POLLEN 04/06/2012 SAINZ DO, SHAY K 008.8 Gastroenteritis, Viral 04/06/2012 SAINZ DO, SHAY K 477.0 ALLERGIC RHINITIS DUE TO POLLEN 04/06/2012 ASINZ DO, SHAY K 008.8 Gastroenteritis, Viral 04/06/2012 SAINZ DO, SHAY K 477.0 ALLERGIC RHINITIS DUE TO POLLEN 04/06/2012 SAINZ DO, SHAY K 008.8 Gastroenteritis, Viral 04/06/2012 SAINZ DO, SHAY K 477.0 ALLERGIC RHINITIS DUE TO POLLEN 04/06/2012 SAINZ DO, SHAY K 008.8 Gastroenteritis, Viral 04/06/2012 SAINZ DO, SHAY K 477.0 ALLERGIC RHINITIS DUE TO POLLEN 04/06/2012 SAINZ DO, SHAY K 008.8 Gastroenteritis, Viral 04/06/2012 SAINZ DO, SHAY K 477.0 ALLERGIC RHINITIS DUE TO POLLEN 04/06/2012 SAINZ DO, SHAY K 008.8 Gastroenteritis, Viral 04/06/2012 SAINZ DO, SHAY K 477.0 ALLERGIC RHINITIS DUE TO POLLEN 04/06/2012 SAINZ DO, SHAY K 008.8 Gastroenteritis, Viral 04/06/2012 SAINZ DO, SHAY K 477.0 ALLERGIC RHINITIS DUE TO POLLEN 04/06/2012 SAINZ DO, SHAY K 008.8 Gastroenteritis, Viral 04/06/2012 SAINZ DO, SHAY K 477.0 ALLERGIC RHINITIS DUE TO POLLEN 04/06/2012 ROBERTO FIGUEROA MD N 008.8 Gastroenteritis, Viral 04/06/2012 ROBERTO FIGUEROA MD N 477.0 ALLERGIC RHINITIS DUE TO POLLEN 04/06/2012 [facility], LAZARA A 008.8 Gastroenteritis, Viral 04/06/2012 [facility], LAZARA A 477.0 ALLERGIC RHINITIS DUE TO POLLEN 04/06/2012 [facility], LAZARA A 008.8 Gastroenteritis, Viral 04/06/2012 [facility], LAZARA A 477.0 ALLERGIC RHINITIS DUE TO POLLEN 04/06/2012 SAINZ DO, SHAY K 008.8 Gastroenteritis, Viral 04/06/2012 SAINZ DO, SHAY K 477.0 ALLERGIC RHINITIS DUE TO POLLEN 04/06/2012 [facility], BENSON R 008.8 Gastroenteritis, Viral 04/06/2012 [facility], BENSON R 477.0 ALLERGIC RHINITIS DUE TO POLLEN 04/06/2012 [facility], LAZARA A 008.8 Gastroenteritis, Viral 04/06/2012 [facility], LAZARA A 477.0 ALLERGIC RHINITIS DUE TO POLLEN 04/06/2012 SAINZ DO, SHAY K 008.8 Gastroenteritis, Viral 04/06/2012 SAINZ DO, SHAY K 477.0 ALLERGIC RHINITIS DUE TO POLLEN 04/06/2012 [facility], BENSON R 008.8 Gastroenteritis, Viral 04/06/2012 [facility], BENSON R 477.0 ALLERGIC RHINITIS DUE TO POLLEN 04/06/2012 [facility], LAZARA A 008.8 Gastroenteritis, Viral 04/06/2012 [facility], LAZARA A 477.0 ALLERGIC RHINITIS DUE TO POLLEN 04/06/2012 [facility], BENSON R 008.8 Gastroenteritis, Viral 04/06/2012 [facility], BENSON R 477.0 ALLERGIC RHINITIS DUE TO POLLEN 05/18/2012 380.4 CERUMEN IMPACTION 05/18/2012 465.9 UPPER RESPIRATORY INFECTION 05/18/2012 380.4 CERUMEN IMPACTION 05/18/2012 465.9 UPPER RESPIRATORY INFECTION 05/18/2012 SAINZ DO, SHAY K 380.4 CERUMEN IMPACTION 05/18/2012 SAINZ DO, SHAY K 465.9 UPPER RESPIRATORY INFECTION 05/18/2012 380.4 CERUMEN IMPACTION 05/18/2012 465.9 UPPER RESPIRATORY INFECTION 05/18/2012 SAINZ DO, SHAY K 380.4 CERUMEN IMPACTION 05/18/2012 SAINZ DO, SHAY K 465.9 UPPER RESPIRATORY INFECTION 05/18/2012 380.4 CERUMEN IMPACTION 05/18/2012 465.9 UPPER RESPIRATORY INFECTION 05/18/2012 380.4 CERUMEN IMPACTION 05/18/2012 465.9 UPPER RESPIRATORY INFECTION 05/18/2012 CASSIDY GUSTAFSON PHD 380.4 CERUMEN IMPACTION 05/18/2012 SJ FINK, CASSIDY Castillo 465.9 UPPER RESPIRATORY INFECTION 05/18/2012 SAINZ DO, SHAY K 380.4 CERUMEN IMPACTION 05/18/2012 SAINZ DO, SHAY K 465.9 UPPER RESPIRATORY INFECTION 05/18/2012 DOWELL TAWNY VAUGHANSEY A 380.4 CERUMEN IMPACTION 05/18/2012 DOWELL TAWNY VAUGHANSEY A 465.9 UPPER RESPIRATORY INFECTION 05/18/2012 DOWELL LSCS, PATRICE A 380.4 CERUMEN IMPACTION 05/18/2012 DOWELL LSCS, PATRICE A 465.9 UPPER RESPIRATORY INFECTION 05/18/2012 DOWELL LSCS, PATRICE A 380.4 CERUMEN IMPACTION 05/18/2012 DOWELL LSCS, PATRICE A 465.9 UPPER RESPIRATORY INFECTION 05/18/2012 [facility], OTTONIEL A 380.4 CERUMEN IMPACTION 05/18/2012 [facility], OTTONIEL A 465.9 UPPER RESPIRATORY INFECTION 05/18/2012 DOWELL LSCS, PATRICE A 380.4 CERUMEN IMPACTION 05/18/2012 DOWELL LSCS, PATRICE A 465.9 UPPER RESPIRATORY INFECTION 05/18/2012 DOWELL LSCS, APTRICE A 380.4 CERUMEN IMPACTION 05/18/2012 DOWELL LSCS, PATRICE A 465.9 UPPER RESPIRATORY INFECTION 05/18/2012 [facility], OTTONIEL A 380.4 CERUMEN IMPACTION 05/18/2012 [facility], OTTONIEL A 465.9 UPPER RESPIRATORY INFECTION 05/18/2012 [facility], BENSON R 380.4 CERUMEN IMPACTION 05/18/2012 [facility], BENSON R 465.9 UPPER RESPIRATORY INFECTION 05/18/2012 DOWELL LSCS, PATRICE A 380.4 CERUMEN IMPACTION 05/18/2012 DOWELL LSCS, PATRICE A 465.9 UPPER RESPIRATORY INFECTION 05/18/2012 [facility], BENSON R 380.4 CERUMEN IMPACTION 05/18/2012 [facility], BENSON R 465.9 UPPER RESPIRATORY INFECTION 05/18/2012 [facility], BENSON R 380.4 CERUMEN IMPACTION 05/18/2012 [facility], BENSON R 465.9 UPPER RESPIRATORY INFECTION 05/18/2012 SAI PEREZ MD 380.4 CERUMEN IMPACTION 05/18/2012 SAI PEREZ MD 465.9 UPPER RESPIRATORY INFECTION 05/18/2012 SAINZ DO, SHAY K 380.4 CERUMEN IMPACTION 05/18/2012 SAINZ DO, SHAY K 465.9 UPPER RESPIRATORY INFECTION 05/18/2012 [facility], LAZARA A 380.4 CERUMEN IMPACTION 05/18/2012 [facility], LAZARA A 465.9 UPPER RESPIRATORY INFECTION 05/18/2012 SAINZ DO, SHAY K 380.4 CERUMEN IMPACTION 05/18/2012 SAINZ DO, SHAY K 465.9 UPPER RESPIRATORY INFECTION 05/18/2012 [facility], LAZARA A 380.4 CERUMEN IMPACTION 05/18/2012 [facility], LAZARA A 465.9 UPPER RESPIRATORY INFECTION 05/18/2012 [facility], LAZARA A 380.4 CERUMEN IMPACTION 05/18/2012 [facility], LAZARA A 465.9 UPPER RESPIRATORY INFECTION 05/18/2012 SAINZ DO, SHAY K 380.4 CERUMEN IMPACTION 05/18/2012 SAINZ DO, SHAY K 465.9 UPPER RESPIRATORY INFECTION 05/18/2012 [facility], MIKE T 380.4 CERUMEN IMPACTION 05/18/2012 [facility], MIKE T 465.9 UPPER RESPIRATORY INFECTION 05/18/2012 SAINZ DO, SHAY K 380.4 CERUMEN IMPACTION 05/18/2012 SAINZ DO, SHAY K 465.9 UPPER RESPIRATORY INFECTION 05/18/2012 SAINZ DO, SHAY K 380.4 CERUMEN IMPACTION 05/18/2012 SAINZ DO, SHAY K 465.9 UPPER RESPIRATORY INFECTION 05/18/2012 SAINZ DO, SHAY K 380.4 CERUMEN IMPACTION 05/18/2012 SAINZ DO, SHAY K 465.9 UPPER RESPIRATORY INFECTION 05/18/2012 SAINZ DO, SHAY K 380.4 CERUMEN IMPACTION 05/18/2012 SAINZ DO, SHAY K 465.9 UPPER RESPIRATORY INFECTION 05/18/2012 SAINZ DO, SHAY K 380.4 CERUMEN IMPACTION 05/18/2012 SAINZ DO, SHAY K 465.9 UPPER RESPIRATORY INFECTION 05/18/2012 SAINZ DO, SHAY K 380.4 CERUMEN IMPACTION 05/18/2012 SAINZ DO, SHAY K 465.9 UPPER RESPIRATORY INFECTION 05/18/2012 SAINZ DO, SHAY K 380.4 CERUMEN IMPACTION 05/18/2012 SAINZ DO, SHAY K 465.9 UPPER RESPIRATORY INFECTION 05/18/2012 SAINZ DO, SHAY K 380.4 CERUMEN IMPACTION 05/18/2012 SAINZ DO, SHAY K 465.9 UPPER RESPIRATORY INFECTION 05/18/2012 ROBERTO FIGUEROA MD 380.4 CERUMEN IMPACTION 05/18/2012 HENRY MD, ROBERTO N 465.9 UPPER RESPIRATORY INFECTION 05/18/2012 [facility], LAZARA A 380.4 CERUMEN IMPACTION 05/18/2012 [facility], LAZARA A 465.9 UPPER RESPIRATORY INFECTION 05/18/2012 [facility], LAZARA A 380.4 CERUMEN IMPACTION 05/18/2012 [facility], LAZARA A 465.9 UPPER RESPIRATORY INFECTION 05/18/2012 SAINZ DO, SHAY K 380.4 CERUMEN IMPACTION 05/18/2012 SAINZ DO, SHAY K 465.9 UPPER RESPIRATORY INFECTION 05/18/2012 [facility], BENSON R 380.4 CERUMEN IMPACTION 05/18/2012 [facility], BENSON R 465.9 UPPER RESPIRATORY INFECTION 05/18/2012 [facility], LAZARA A 380.4 CERUMEN IMPACTION 05/18/2012 [facility], LAZARA A 465.9 UPPER RESPIRATORY INFECTION 05/18/2012 SAINZ DO, SHAY K 380.4 CERUMEN IMPACTION 05/18/2012 SAINZ DO, SHAY K 465.9 UPPER RESPIRATORY INFECTION 05/18/2012 [facility], BENSON R 380.4 CERUMEN IMPACTION 05/18/2012 [facility], BENSON R 465.9 UPPER RESPIRATORY INFECTION 05/18/2012 [facility], LAZARA A 380.4 CERUMEN IMPACTION 05/18/2012 [facility], LAZARA A 465.9 UPPER RESPIRATORY INFECTION 05/18/2012 [facility], BENSON R 380.4 CERUMEN IMPACTION 05/18/2012 [facility], BENSON R 465.9 UPPER RESPIRATORY INFECTION 05/25/2012 SHAY SAINZ DO V72.41 TEST NEGATIVE RESULT 05/25/2012 V72.41 TEST NEGATIVE RESULT 05/25/2012 SHAY SAINZ DO V72.41 TEST NEGATIVE RESULT 05/25/2012 V72.41 TEST NEGATIVE RESULT 05/25/2012 V72.41 TEST NEGATIVE RESULT 05/25/2012 SJ FINK, CASSIDY Castillo V72.41 TEST NEGATIVE RESULT 05/25/2012 SHAY SAINZ DO K V72.41 TEST NEGATIVE RESULT 05/25/2012 [place] [facility] [place] PATRICE Gonzalez V72.41 TEST NEGATIVE RESULT 05/25/2012 [facility], PATRICE A V72.41 TEST NEGATIVE RESULT 05/25/2012 [facility], PATRICE A V72.41 TEST NEGATIVE RESULT 05/25/2012 COREY LAN OTTONIEL A V72.41 TEST NEGATIVE RESULT 05/25/2012 [facility], PATRICE A V72.41 TEST NEGATIVE RESULT 05/25/2012 [facility], PATRICE A V72.41 TEST NEGATIVE RESULT 05/25/2012 COREY LAN OTTONIEL A V72.41 TEST NEGATIVE RESULT 05/25/2012 MELANIE LAN BENSON R V72.41 TEST NEGATIVE RESULT 05/25/2012 [facility], PATRICE A V72.41 TEST NEGATIVE RESULT 05/25/2012 [facility], BENSON R V72.41 TEST NEGATIVE RESULT 05/25/2012 MELANIE LAN BENSON R V72.41 TEST NEGATIVE RESULT 05/25/2012 SAI PEREZ MD V72.41 TEST NEGATIVE RESULT 05/25/2012 SAINZ DO, SHAY K V72.41 TEST NEGATIVE RESULT 05/25/2012 LIN[facility] LAN LAZARA A V72.41 TEST NEGATIVE RESULT 05/25/2012 SAINZ DO, SHAY K V72.41 TEST NEGATIVE RESULT 05/25/2012 LIN[facility] LAN LAZARA A V72.41 TEST NEGATIVE RESULT 05/25/2012 LIN[facility] LAN LAZARA A V72.41 TEST NEGATIVE RESULT 05/25/2012 SAINZ DO, SHAY K V72.41 TEST NEGATIVE RESULT 05/25/2012 MIKE ANDERSON APRN V72.41 TEST NEGATIVE RESULT 05/25/2012 SAINZ DO, SHAY K V72.41 TEST NEGATIVE RESULT 05/25/2012 SAINZ DO, SHAY K V72.41 TEST NEGATIVE RESULT 05/25/2012 SAINZ DO, SHAY K V72.41 TEST NEGATIVE RESULT 05/25/2012 SAINZ DO, SHAY K V72.41 TEST NEGATIVE RESULT 05/25/2012 SAINZ DO, SHAY K V72.41 TEST NEGATIVE RESULT 05/25/2012 SAINZ DO, SHAY K V72.41 TEST NEGATIVE RESULT 05/25/2012 SAINZ DO, SHAY K V72.41 TEST NEGATIVE RESULT 05/25/2012 SHAY SAINZ DO K V72.41 TEST NEGATIVE RESULT 05/25/2012 ROBERTO FIGUEROA MD V72.41 TEST NEGATIVE RESULT 05/25/2012 [facility] LAZARA A V72.41 TEST NEGATIVE RESULT 05/25/2012 [facility], LAZARA A V72.41 TEST NEGATIVE RESULT 05/25/2012 SHAY SAINZ DO K V72.41 TEST NEGATIVE RESULT 05/25/2012 [facility], BENSON R V72.41 TEST NEGATIVE RESULT 05/25/2012 [facility], LAZARA A V72.41 TEST NEGATIVE RESULT 05/25/2012 TAWNY SAINZ DOA K V72.41 TEST NEGATIVE RESULT 05/25/2012 [facility], BENSON R V72.41 TEST NEGATIVE RESULT 05/25/2012 [facility], LAZARA A V72.41 TEST NEGATIVE RESULT 05/25/2012 MELANIE LAN, BENSON R V72.41 TEST NEGATIVE RESULT 06/17/2012 Ot 487.1 06/17/2012 Ot 616.0 06/17/2012 Ot 780.60 06/17/2012 Ot 789.09 07/06/2012 724.2 BACK PAIN, LOWER 07/06/2012 V25.01 CONTRACEPTION - ORAL CONTRACEPTION 07/06/2012 SHAY SAINZ DO 724.2 BACK PAIN, LOWER 07/06/2012 SHAY SAINZ DO V25.01 CONTRACEPTION - ORAL CONTRACEPTION 07/06/2012 724.2 BACK PAIN, LOWER 07/06/2012 V25.01 CONTRACEPTION - ORAL CONTRACEPTION 07/06/2012 724.2 BACK PAIN, LOWER 07/06/2012 V25.01 CONTRACEPTION - ORAL CONTRACEPTION 07/06/2012 SJ FINK, CASSIDY Castillo 724.2 BACK PAIN, LOWER 07/06/2012 SJ FINK, CASSIDY Castillo V25.01 CONTRACEPTION - ORAL CONTRACEPTION 07/06/2012 SHAY SAINZ DO 724.2 BACK PAIN, LOWER 07/06/2012 SHAY SAINZ DO V25.01 CONTRACEPTION - ORAL CONTRACEPTION 07/06/2012 [facility] [place] 7[facility].2 BACK PAIN, LOWER 07/06/2012 [facility] GAMAPATRICE V25.01 CONTRACEPTION - ORAL CONTRACEPTION 07/06/2012 DOWELL LSCS, PATRICE A 724.2 BACK PAIN, LOWER 07/06/2012 DOWELL LSCS, PATRICE A V25.01 CONTRACEPTION - ORAL CONTRACEPTION 07/06/2012 DOWELL LSCS, PATRICE A 724.2 BACK PAIN, LOWER 07/06/2012 DOWELL LSCS, PATRICE A V25.01 CONTRACEPTION - ORAL CONTRACEPTION 07/06/2012 [facility], OTTONIEL A 724.2 BACK PAIN, LOWER 07/06/2012 [facility], OTTONIEL A V25.01 CONTRACEPTION - ORAL CONTRACEPTION 07/06/2012 DOWELL LSCS, PATRICE A 724.2 BACK PAIN, LOWER 07/06/2012 DOWELL LSCS, PATRICE A V25.01 CONTRACEPTION - ORAL CONTRACEPTION 07/06/2012 DOWELL LSCS, APTRICE A 724.2 BACK PAIN, LOWER 07/06/2012 DOWELL LSCS, PATRICE A V25.01 CONTRACEPTION - ORAL CONTRACEPTION 07/06/2012 [facility], OTTONIEL A 724.2 BACK PAIN, LOWER 07/06/2012 [facility], OTTONIEL A V25.01 CONTRACEPTION - ORAL CONTRACEPTION 07/06/2012 [facility], BENSON R 724.2 BACK PAIN, LOWER 07/06/2012 [facility], BENSON R V25.01 CONTRACEPTION - ORAL CONTRACEPTION 07/06/2012 DOWELL LSCS, PATRICE A 724.2 BACK PAIN, LOWER 07/06/2012 ELVERSON LSCS, PATRICE A V25.01 CONTRACEPTION - ORAL CONTRACEPTION 07/06/2012 [facility], BENSON R 724.2 BACK PAIN, LOWER 07/06/2012 [facility], BENSON R V25.01 CONTRACEPTION - ORAL CONTRACEPTION 07/06/2012 [facility], BENSON R 724.2 BACK PAIN, LOWER 07/06/2012 [facility], BENSON R V25.01 CONTRACEPTION - ORAL CONTRACEPTION 07/06/2012 SAI PEREZ MD 724.2 BACK PAIN, LOWER 07/06/2012 SAI PEREZ MD V25.01 CONTRACEPTION - ORAL CONTRACEPTION 07/06/2012 SAINZ DO, SHAY K 724.2 BACK PAIN, LOWER 07/06/2012 SAINZ DO, SHAY K V25.01 CONTRACEPTION - ORAL CONTRACEPTION 07/06/2012 LAZARA MELTON APRN A 724.2 BACK PAIN, LOWER 07/06/2012 [facility], LAZARA A V25.01 CONTRACEPTION - ORAL CONTRACEPTION 07/06/2012 SAINZ DO, SHAY K 724.2 BACK PAIN, LOWER 07/06/2012 SAINZ DO, SHAY K V25.01 CONTRACEPTION - ORAL CONTRACEPTION 07/06/2012 [facility], LAZARA A 724.2 BACK PAIN, LOWER 07/06/2012 [facility], LAZARA A V25.01 CONTRACEPTION - ORAL CONTRACEPTION 07/06/2012 [facility], LAZARA A 724.2 BACK PAIN, LOWER 07/06/2012 [facility], LAZARA A V25.01 CONTRACEPTION - ORAL CONTRACEPTION 07/06/2012 SAINZ DO, SHAY K 724.2 BACK PAIN, LOWER 07/06/2012 SAINZ DO, SHAY K V25.01 CONTRACEPTION - ORAL CONTRACEPTION 07/06/2012 [facility], MIKE T 724.2 BACK PAIN, LOWER 07/06/2012 JUSTIN BREWERN MIKE Sylvia V25.01 CONTRACEPTION - ORAL CONTRACEPTION 07/06/2012 SAINZ DO, SHAY K 724.2 BACK PAIN, LOWER 07/06/2012 SAINZ DO, SHAY K V25.01 CONTRACEPTION - ORAL CONTRACEPTION 07/06/2012 SAINZ DO, SHAY K 724.2 BACK PAIN, LOWER 07/06/2012 SAINZ DO, SHAY K V25.01 CONTRACEPTION - ORAL CONTRACEPTION 07/06/2012 SAINZ DO, SHAY K 724.2 BACK PAIN, LOWER 07/06/2012 SAINZ DO, SHAY K V25.01 CONTRACEPTION - ORAL CONTRACEPTION 07/06/2012 SAINZ DO, SHAY K 724.2 BACK PAIN, LOWER 07/06/2012 SAINZ DO, SHAY K V25.01 CONTRACEPTION - ORAL CONTRACEPTION 07/06/2012 SAINZ DO, SHAY K 724.2 BACK PAIN, LOWER 07/06/2012 SAINZ DO, SHAY K V25.01 CONTRACEPTION - ORAL CONTRACEPTION 07/06/2012 SAINZ DO, SHAY K 724.2 BACK PAIN, LOWER 07/06/2012 SAINZ DO, SHAY K V25.01 CONTRACEPTION - ORAL CONTRACEPTION 07/06/2012 SAINZ DO, SHAY K 724.2 BACK PAIN, LOWER 07/06/2012 SAINZ DO, SHAY K V25.01 CONTRACEPTION - ORAL CONTRACEPTION 07/06/2012 SAINZ DO, SHAY K 724.2 BACK PAIN, LOWER 07/06/2012 SAINZ DO, SHAY K V25.01 CONTRACEPTION - ORAL CONTRACEPTION 07/06/2012 HENRY CONROY, ROBERTO N 724.2 BACK PAIN, LOWER 07/06/2012 HENRY CONROY, ROBERTO N V25.01 CONTRACEPTION - ORAL CONTRACEPTION 07/06/2012 [facility], LAZARA A 724.2 BACK PAIN, LOWER 07/06/2012 [facility], LAZARA A V25.01 CONTRACEPTION - ORAL CONTRACEPTION 07/06/2012 [facility], LAZARA A 724.2 BACK PAIN, LOWER 07/06/2012 [facility], LAZARA A V25.01 CONTRACEPTION - ORAL CONTRACEPTION 07/06/2012 TAWNY SAINZ DOA K 724.2 BACK PAIN, LOWER 07/06/2012 TAWNY SAINZ DOA K V25.01 CONTRACEPTION - ORAL CONTRACEPTION 07/06/2012 MELANIE LAN, BENSON R 724.2 BACK PAIN, LOWER 07/06/2012 MELANIE LAN, BENSON R V25.01 CONTRACEPTION - ORAL CONTRACEPTION 07/06/2012 LIN[facility] LAN, LAZARA A 724.2 BACK PAIN, LOWER 07/06/2012 LINHBRANDEN LAN, LAZARA A V25.01 CONTRACEPTION - ORAL CONTRACEPTION 07/06/2012 TAWNY SAINZ DOA K 724.2 BACK PAIN, LOWER 07/06/2012 TAWNY SAINZ DOA K V25.01 CONTRACEPTION - ORAL CONTRACEPTION 07/06/2012 MELANIE LAN, BENSON R 724.2 BACK PAIN, LOWER 07/06/2012 MELANIE LAN, BENSON R V25.01 CONTRACEPTION - ORAL CONTRACEPTION 07/06/2012 LINH APRN, LAZARA A 724.2 BACK PAIN, LOWER 07/06/2012 LINH APRN, LAZARA A V25.01 CONTRACEPTION - ORAL CONTRACEPTION 07/06/2012 MELANIE LAN, BENSON R 724.2 BACK PAIN, LOWER 07/06/2012 MELANIE LAN, BENSON R V25.01 CONTRACEPTION - ORAL CONTRACEPTION 09/28/2012 692.9 DERMATITIS CONTACT UNSPECIFIED 09/28/2012 692.9 DERMATITIS CONTACT UNSPECIFIED 09/28/2012 SJ FINK, CASSIDY Castillo 692.9 DERMATITIS CONTACT UNSPECIFIED 09/28/2012 SAINZ DO, SHAY K 692.9 DERMATITIS CONTACT UNSPECIFIED 09/28/2012 DOWELL LSCS, PATRICE A 692.9 DERMATITIS CONTACT UNSPECIFIED 09/28/2012 DOWELL LSCS, PATRICE A 692.9 DERMATITIS CONTACT UNSPECIFIED 09/28/2012 DOWELL LSCS, PATRICE A 692.9 DERMATITIS CONTACT UNSPECIFIED 09/28/2012 [employer], OTTONIEL A 692.9 DERMATITIS CONTACT UNSPECIFIED 09/28/2012 DOWELL LSCS, PATRICE A 692.9 DERMATITIS CONTACT UNSPECIFIED 09/28/2012 DOWELL LSCS, PATRICE A 692.9 DERMATITIS CONTACT UNSPECIFIED 09/28/2012 [employer], OTTONIEL A 692.9 DERMATITIS CONTACT UNSPECIFIED 09/28/2012 MELANIE CL[employer] CONCIERGE, BENSON R 692.9 DERMATITIS CONTACT UNSPECIFIED 09/28/2012 DOWELL LSCS, PATRICE A 692.9 DERMATITIS CONTACT UNSPECIFIED 09/28/2012 MELANIE CLUB CONCIERGE, BENSON R 692.9 DERMATITIS CONTACT UNSPECIFIED 09/28/2012 MELANIE CL[employer] CONCIERGE, BENSON R 692.9 DERMATITIS CONTACT UNSPECIFIED 09/28/2012 CHRIS CONROY, SAI 692.9 DERMATITIS CONTACT UNSPECIFIED 09/28/2012 SAINZ DO, SHAY K 692.9 DERMATITIS CONTACT UNSPECIFIED 09/28/2012 LIN[facility] CONCIERGE, LAZARA A 692.9 DERMATITIS CONTACT UNSPECIFIED 09/28/2012 SAINZ DO, SHAY K 692.9 DERMATITIS CONTACT UNSPECIFIED 09/28/2012 LIN[facility] CONCIERGE, LAZARA A 692.9 DERMATITIS CONTACT UNSPECIFIED 09/28/2012 LIN[facility] [employer] CONCIERGE, LAZARA A 692.9 DERMATITIS CONTACT UNSPECIFIED 09/28/2012 SAINZ DO, SHAY K 692.9 DERMATITIS CONTACT UNSPECIFIED 09/28/2012 MIKE ANDERSON APRN 692.9 DERMATITIS CONTACT UNSPECIFIED 09/28/2012 SAINZ DO, SHAY K 692.9 DERMATITIS CONTACT UNSPECIFIED 09/28/2012 SAINZ DO, SHAY K 692.9 DERMATITIS CONTACT UNSPECIFIED 09/28/2012 SAINZ DO, SHAY K 692.9 DERMATITIS CONTACT UNSPECIFIED 09/28/2012 SAINZ DO, SHAY K 692.9 DERMATITIS CONTACT UNSPECIFIED 09/28/2012 SAINZ DO, SHAY K 692.9 DERMATITIS CONTACT UNSPECIFIED 09/28/2012 SAINZ DO, SHAY K 692.9 DERMATITIS CONTACT UNSPECIFIED 09/28/2012 SAINZ DO, SHAY K 692.9 DERMATITIS CONTACT UNSPECIFIED 09/28/2012 SAINZ DO, SHAY K 692.9 DERMATITIS CONTACT UNSPECIFIED 09/28/2012 HENRY CONROY, ROBERTO Fernandez 692.9 DERMATITIS CONTACT UNSPECIFIED 09/28/2012 [facility] CON[employer]GE, LAZARA A 692.9 DERMATITIS CONTACT UNSPECIFIED 09/28/2012 LIN[facility] CONCIERGE, LAZARA A 692.9 DERMATITIS CONTACT UNSPECIFIED 09/28/2012 SAINZ DO, SHAY K 692.9 DERMATITIS CONTACT UNSPECIFIED 09/28/2012 MELANIE CL[employer] CONCIERGE, BENSON R 692.9 DERMATITIS CONTACT UNSPECIFIED 09/28/2012 LIN[facility] CONCIERGE, LAZARA A 692.9 DERMATITIS CONTACT UNSPECIFIED 09/28/2012 SAINZ DO, SHAY K 692.9 DERMATITIS CONTACT UNSPECIFIED 09/28/2012 MELANIE [employer] CONCIERGE, BENSON R 692.9 DERMATITIS CONTACT UNSPECIFIED 09/28/2012 LIN[facility] [employer] CON[employer]GE, LAZARA A 692.9 DERMATITIS CONTACT UNSPECIFIED 09/28/2012 MELANIE CL[employer] CONCIERGE, BENSON R 692.9 DERMATITIS CONTACT UNSPECIFIED 11/12/2012 535.50 UNSPECIFIED GASTRITIS AND GASTRODUODENITIS (WITHOUT HEMORRHAGE) 11/12/2012 564.00 UNSPECIFIED CONSTIPATION 11/12/2012 CASSIDY GUSTAFSON PHD 535.50 UNSPECIFIED GASTRITIS AND GASTRODUODENITIS (WITHOUT HEMORRHAGE) 11/12/2012 CASSIDY GUSTAFSON PHD 564.00 UNSPECIFIED CONSTIPATION 11/12/2012 TAWNY SAINZ DOA K 535.50 UNSPECIFIED GASTRITIS AND GASTRODUODENITIS (WITHOUT HEMORRHAGE) 11/12/2012 TAWNY SAINZ DOA K 564.00 UNSPECIFIED CONSTIPATION 11/12/2012 [facility], PATRICE A 535.50 UNSPECIFIED GASTRITIS AND GASTRODUODENITIS (WITHOUT HEMORRHAGE) 11/12/2012 [facility], PATRICE A 564.00 UNSPECIFIED CONSTIPATION 11/12/2012 [facility], PATRICE A 535.50 UNSPECIFIED GASTRITIS AND GASTRODUODENITIS (WITHOUT HEMORRHAGE) 11/12/2012 [place] [facility] [place] PATRICE A 564.00 UNSPECIFIED CONSTIPATION 11/12/2012 [facility], PATRICE A 535.50 UNSPECIFIED GASTRITIS AND GASTRODUODENITIS (WITHOUT HEMORRHAGE) 11/12/2012 DOWELL [facility], PATRICE A 564.00 UNSPECIFIED CONSTIPATION 11/12/2012 [employer], OTTONIEL A 535.50 UNSPECIFIED GASTRITIS AND GASTRODUODENITIS (WITHOUT HEMORRHAGE) 11/12/2012 [facility], OTTONIEL A 564.00 UNSPECIFIED CONSTIPATION 11/12/2012 [facility], PATRICE A 535.50 UNSPECIFIED GASTRITIS AND GASTRODUODENITIS (WITHOUT HEMORRHAGE) 11/12/2012 [facility], PATRICE A 564.00 UNSPECIFIED CONSTIPATION 11/12/2012 [facility], PATRICE A 535.50 UNSPECIFIED GASTRITIS AND GASTRODUODENITIS (WITHOUT HEMORRHAGE) 11/12/2012 [facility], PATRICE A 564.00 UNSPECIFIED CONSTIPATION 11/12/2012 [employer] [employer], OTTONIEL A 535.50 UNSPECIFIED GASTRITIS AND GASTRODUODENITIS (WITHOUT HEMORRHAGE) 11/12/2012 [facility] [employer], OTTONIEL A 564.00 UNSPECIFIED CONSTIPATION 11/12/2012 MELANIE [employer], BENSON R 535.50 UNSPECIFIED GASTRITIS AND GASTRODUODENITIS (WITHOUT HEMORRHAGE) 11/12/2012 [facility] [employer], BENSON R 564.00 UNSPECIFIED CONSTIPATION 11/12/2012 [facility], PATRICE A 535.50 UNSPECIFIED GASTRITIS AND GASTRODUODENITIS (WITHOUT HEMORRHAGE) 11/12/2012 [facility] PATRICE A 564.00 UNSPECIFIED CONSTIPATION 11/12/2012 [facility], BENSON R 535.50 UNSPECIFIED GASTRITIS AND GASTRODUODENITIS (WITHOUT HEMORRHAGE) 11/12/2012 [facility], BENSON R 564.00 UNSPECIFIED CONSTIPATION 11/12/2012 [facility], BENSON R 535.50 UNSPECIFIED GASTRITIS AND GASTRODUODENITIS (WITHOUT HEMORRHAGE) 11/12/2012 [facility], BENSON R 564.00 UNSPECIFIED CONSTIPATION 11/12/2012 SAI PEREZ MD 535.50 UNSPECIFIED GASTRITIS AND GASTRODUODENITIS (WITHOUT HEMORRHAGE) 11/12/2012 SAI PEREZ MD 564.00 UNSPECIFIED CONSTIPATION 11/12/2012 SHAY SAINZ DO 535.50 UNSPECIFIED GASTRITIS AND GASTRODUODENITIS (WITHOUT HEMORRHAGE) 11/12/2012 SHAY SAINZ DO 564.00 UNSPECIFIED CONSTIPATION 11/12/2012 [facility], LAZARA A 535.50 UNSPECIFIED GASTRITIS AND GASTRODUODENITIS (WITHOUT HEMORRHAGE) 11/12/2012 [facility], LAZARA A 564.00 UNSPECIFIED CONSTIPATION 11/12/2012 SAINZ DO, SHAY K 535.50 UNSPECIFIED GASTRITIS AND GASTRODUODENITIS (WITHOUT HEMORRHAGE) 11/12/2012 SAINZ DO, SHAY K 564.00 UNSPECIFIED CONSTIPATION 11/12/2012 [facility], LAZARA A 535.50 UNSPECIFIED GASTRITIS AND GASTRODUODENITIS (WITHOUT HEMORRHAGE) 11/12/2012 [facility], LAZARA A 564.00 UNSPECIFIED CONSTIPATION 11/12/2012 [facility], LAZARA A 535.50 UNSPECIFIED GASTRITIS AND GASTRODUODENITIS (WITHOUT HEMORRHAGE) 11/12/2012 [facility], LAZRAA A 564.00 UNSPECIFIED CONSTIPATION 11/12/2012 SAINZ DO, SHAY K 535.50 UNSPECIFIED GASTRITIS AND GASTRODUODENITIS (WITHOUT HEMORRHAGE) 11/12/2012 SAINZ DO, SHAY K 564.00 UNSPECIFIED CONSTIPATION 11/12/2012 MIKE ANDERSON APRN 535.50 UNSPECIFIED GASTRITIS AND GASTRODUODENITIS (WITHOUT HEMORRHAGE) 11/12/2012 MIKE ANDERSON APRN 564.00 UNSPECIFIED CONSTIPATION 11/12/2012 SAINZ DO, SHAY K 535.50 UNSPECIFIED GASTRITIS AND GASTRODUODENITIS (WITHOUT HEMORRHAGE) 11/12/2012 SAINZ DO, SHAY K 564.00 UNSPECIFIED CONSTIPATION 11/12/2012 SAINZ DO, SHAY K 535.50 UNSPECIFIED GASTRITIS AND GASTRODUODENITIS (WITHOUT HEMORRHAGE) 11/12/2012 SAINZ DO, SHAY K 564.00 UNSPECIFIED CONSTIPATION 11/12/2012 SAINZ DO, SHAY K 535.50 UNSPECIFIED GASTRITIS AND GASTRODUODENITIS (WITHOUT HEMORRHAGE) 11/12/2012 SAINZ DO, SHAY K 564.00 UNSPECIFIED CONSTIPATION 11/12/2012 SAINZ DO, SHAY K 535.50 UNSPECIFIED GASTRITIS AND GASTRODUODENITIS (WITHOUT HEMORRHAGE) 11/12/2012 SAINZ DO, SHAY K 564.00 UNSPECIFIED CONSTIPATION 11/12/2012 SAINZ DO, SHAY K 535.50 UNSPECIFIED GASTRITIS AND GASTRODUODENITIS (WITHOUT HEMORRHAGE) 11/12/2012 SAINZ DO, SHAY K 564.00 UNSPECIFIED CONSTIPATION 11/12/2012 SAINZ DO, SHAY K 535.50 UNSPECIFIED GASTRITIS AND GASTRODUODENITIS (WITHOUT HEMORRHAGE) 11/12/2012 SAINZ DO, SHAY K 564.00 UNSPECIFIED CONSTIPATION 11/12/2012 SAIZN DO, SHAY K 535.50 UNSPECIFIED GASTRITIS AND GASTRODUODENITIS (WITHOUT HEMORRHAGE) 11/12/2012 SAINZ DO, SHAY K 564.00 UNSPECIFIED CONSTIPATION 11/12/2012 SAINZ DO, SHAY K 535.50 UNSPECIFIED GASTRITIS AND GASTRODUODENITIS (WITHOUT HEMORRHAGE) 11/12/2012 SAINZ DO, SHAY K 564.00 UNSPECIFIED CONSTIPATION 11/12/2012 ROBERTO FIGUEROA MD 535.50 UNSPECIFIED GASTRITIS AND GASTRODUODENITIS (WITHOUT HEMORRHAGE) 11/12/2012 ROBERTO FIGUEROA MD 564.00 UNSPECIFIED CONSTIPATION 11/12/2012 LAZARA MELTON APRN A 535.50 UNSPECIFIED GASTRITIS AND GASTRODUODENITIS (WITHOUT HEMORRHAGE) 11/12/2012 JASON MELTON APRNIDI A 564.00 UNSPECIFIED CONSTIPATION 11/12/2012 JASON MELTON APRNIDI A 535.50 UNSPECIFIED GASTRITIS AND GASTRODUODENITIS (WITHOUT HEMORRHAGE) 11/12/2012 JASON MELTON APRNIDI A 564.00 UNSPECIFIED CONSTIPATION 11/12/2012 SAINZ DO SAHY K 535.50 UNSPECIFIED GASTRITIS AND GASTRODUODENITIS (WITHOUT HEMORRHAGE) 11/12/2012 SAINZ DO, SHAY K 564.00 UNSPECIFIED CONSTIPATION 11/12/2012 MELANIE LAN BENSON R 535.50 UNSPECIFIED GASTRITIS AND GASTRODUODENITIS (WITHOUT HEMORRHAGE) 11/12/2012 MELANIE LAN BENSON R 564.00 UNSPECIFIED CONSTIPATION 11/12/2012 JASON MELTON APRNIDI A 535.50 UNSPECIFIED GASTRITIS AND GASTRODUODENITIS (WITHOUT HEMORRHAGE) 11/12/2012 [facility] LAZARA A 564.00 UNSPECIFIED CONSTIPATION 11/12/2012 SAINZ DO SHAY K 535.50 UNSPECIFIED GASTRITIS AND GASTRODUODENITIS (WITHOUT HEMORRHAGE) 11/12/2012 SAINZ DO SHAY K 564.00 UNSPECIFIED CONSTIPATION 11/12/2012 MELANIE LAN BENSON R 535.50 UNSPECIFIED GASTRITIS AND GASTRODUODENITIS (WITHOUT HEMORRHAGE) 11/12/2012 [facility], BENSON R 564.00 UNSPECIFIED CONSTIPATION 11/12/2012 [facility], LAZARA A 535.50 UNSPECIFIED GASTRITIS AND GASTRODUODENITIS (WITHOUT HEMORRHAGE) 11/12/2012 [facility], LAZARA A 564.00 UNSPECIFIED CONSTIPATION 11/12/2012 [facility], BENSON R 535.50 UNSPECIFIED GASTRITIS AND GASTRODUODENITIS (WITHOUT HEMORRHAGE) 11/12/2012 [facility], BENSON R 564.00 UNSPECIFIED CONSTIPATION 02/19/2013 SAINZ DO, SHAY K 530.81 GERD 02/19/2013 SAINZ DO, SHAY K V79.0 DEPRESSION SCREENING 02/19/2013 [facility], PATRICE A 530.81 GERD 02/19/2013 [facility], PATRICE A V79.0 DEPRESSION SCREENING 02/19/2013 [facility], PATRICE A 530.81 GERD 02/19/2013 [facility], PATRICE A V79.0 DEPRESSION SCREENING 02/19/2013 DOWELL [facility], PATRICE A 530.81 GERD 02/19/2013 DOWELL [facility], PATRICE A V79.0 DEPRESSION SCREENING 02/19/2013 [facility], OTTONIEL A 530.81 GERD 02/19/2013 [facility], OTTONIEL A V79.0 DEPRESSION SCREENING 02/19/2013 D[facility], PATRICE A 530.81 GERD 02/19/2013 DOWELL LSC[facility], PATRICE A V79.0 DEPRESSION SCREENING 02/19/2013 DOWELL [facility], PATRICE A 530.81 GERD 02/19/2013 ODWELL [facility], PATRICE A V79.0 DEPRESSION SCREENING 02/19/2013 [facility], OTTONIEL A 530.81 GERD 02/19/2013 [facility], OTTONIEL A V79.0 DEPRESSION SCREENING 02/19/2013 [facility], BENSON R 530.81 GERD 02/19/2013 [facility], BENSON R V79.0 DEPRESSION SCREENING 02/19/2013 [facility], PATRICE A 530.81 GERD 02/19/2013 [facility], PATRICE A V79.0 DEPRESSION SCREENING 02/19/2013 [facility], BENSON R 530.81 GERD 02/19/2013 [facility], BENSON R V79.0 DEPRESSION SCREENING 02/19/2013 [facility], BENSON R 530.81 GERD 02/19/2013 [facility], BENSON R V79.0 DEPRESSION SCREENING 02/19/2013 SAI PEREZ MD 530.81 GERD 02/19/2013 SAI PEREZ MD V79.0 DEPRESSION SCREENING 02/19/2013 SAINZ DO, SHAY K 530.81 GERD 02/19/2013 SAINZ DO, SHAY K V79.0 DEPRESSION SCREENING 02/19/2013 [facility], LAZARA A 530.81 GERD 02/19/2013 [facility], LAZARA A V79.0 DEPRESSION SCREENING 02/19/2013 SAINZ DO, SHAY K 530.81 GERD 02/19/2013 SAINZ DO, SHAY K V79.0 DEPRESSION SCREENING 02/19/2013 [facility], LAZARA A 530.81 GERD 02/19/2013 [facility], LAZARA A V79.0 DEPRESSION SCREENING 02/19/2013 [facility], LAZARA A 530.81 GERD 02/19/2013 [facility], LAZARA A V79.0 DEPRESSION SCREENING 02/19/2013 SAINZ DO, SHAY K 530.81 GERD 02/19/2013 SAINZ DO, SHAY K V79.0 DEPRESSION SCREENING 02/19/2013 MIKE ANDERSON APRN T 530.81 GERD 02/19/2013 JUSTIN LAN MIKE T V79.0 DEPRESSION SCREENING 02/19/2013 SAINZ DO, SHAY K 530.81 GERD 02/19/2013 SAINZ DO, SHAY K V79.0 DEPRESSION SCREENING 02/19/2013 SAINZ DO, SHAY K 530.81 GERD 02/19/2013 SAINZ DO, SHAY K V79.0 DEPRESSION SCREENING 02/19/2013 SAINZ DO, SHAY K 530.81 GERD 02/19/2013 SAINZ DO, SHAY K V79.0 DEPRESSION SCREENING 02/19/2013 SAINZ DO, SHAY K 530.81 GERD 02/19/2013 SAINZ DO, SHAY K V79.0 DEPRESSION SCREENING 02/19/2013 SAINZ DO, SHAY K 530.81 GERD 02/19/2013 SAINZ DO, SHAY K V79.0 DEPRESSION SCREENING 02/19/2013 SAINZ DO, SHAY K 530.81 GERD 02/19/2013 SAINZ DO, SHAY K V79.0 DEPRESSION SCREENING 02/19/2013 EMELI HUGHES SHAY K 530.81 GERD 02/19/2013 EMELI HUGHES, SHAY K V79.0 DEPRESSION SCREENING 02/19/2013 EMELI HUGHES, SHAY K 530.81 GERD 02/19/2013 SAINZ , SHAY K V79.0 DEPRESSION SCREENING 02/19/2013 ROBERTO FIGUEROA MD N 530.81 GERD 02/19/2013 ROBERTO FIGUEROA MD V79.0 DEPRESSION SCREENING 02/19/2013 [facility], LAZARA A 530.81 GERD 02/19/2013 [facility], LAZARA A V79.0 DEPRESSION SCREENING 02/19/2013 [facility], LAZARA A 530.81 GERD 02/19/2013 [facility], LAZARA A V79.0 DEPRESSION SCREENING 02/19/2013 EMELI HUGHES, SHAY K 530.81 GERD 02/19/2013 EMELI HUGHES, SHYA K V79.0 DEPRESSION SCREENING 02/19/2013 [facility], BENSON R 530.81 GERD 02/19/2013 [facility], BENSON R V79.0 DEPRESSION SCREENING 02/19/2013 [facility], LAZARA A 530.81 GERD 02/19/2013 [facility], LAZARA A V79.0 DEPRESSION SCREENING 02/19/2013 EMELI HUGHES, SHAY K 530.81 GERD 02/19/2013 EMELI HUGHES, SHAY K V79.0 DEPRESSION SCREENING 02/19/2013 [facility], BENSON R 530.81 GERD 02/19/2013 [facility], BENSON R V79.0 DEPRESSION SCREENING 02/19/2013 [facility], LAZARA A 530.81 GERD 02/19/2013 [facility], LAZARA A V79.0 DEPRESSION SCREENING 02/19/2013 [facility], BENSON R 530.81 GERD 02/19/2013 [facility], BENSON R V79.0 DEPRESSION SCREENING 02/26/2013 MILKA GONCALVES Ot 724.2 LUMBAGO 02/26/2013 MILKA GONCALVES Ot V57.1 PHYSICAL THERAPY NEC 03/20/2013 [facility] [place].01 VAGINITIS (TRICHOMONAS VAGINALIS) [facility] EXPOSURE TO VENEREAL DISEASES 03/20/2013 [facility]OWELL [facility]SC[facility], PATRICE A V65.45 STD COUNSELING 03/20/2013 [facility]OWE[facility], PATRICE A V69.2 HIGH-RISK SEXUAL BEHAVIOR 03/20/2013 OTTONIEL NICOLE APRN A 131.01 VAGINITIS (TRICHOMONAS VAGINALIS) 03/20/2013 NISHANT NICOLE APRNYL A V01.6 EXPOSURE TO VENEREAL DISEASES 03/20/2013 NISHANT NICOLE APRNYL A V65.45 STD COUNSELING 03/20/2013 NISHANT NICOLE APRNYL A V69.2 HIGH-RISK SEXUAL BEHAVIOR 03/20/2013 DOWE[facility] LSC[facility], PATRICE A 131.01 VAGINITIS (TRICHOMONAS VAGINALIS) 03/20/2013 DOWELL LSCS, PATRICE A V01.6 EXPOSURE TO VENEREAL DISEASES 03/20/2013 DOWELL LSCS, PATRICE A V65.45 STD COUNSELING 03/20/2013 DOWELL LSCS, PATRICE A V69.2 HIGH-RISK SEXUAL BEHAVIOR 03/20/2013 DOWELL LSCS, PATRICE A 131.01 VAGINITIS (TRICHOMONAS VAGINALIS) 03/20/2013 DOWELL LSCS, PATRICE A V01.6 EXPOSURE TO VENEREAL DISEASES 03/20/2013 DOWELL LSCS, PATRICE A V65.45 STD COUNSELING 03/20/2013 DOWELL LSCS, PATRICE A V69.2 HIGH-RISK SEXUAL BEHAVIOR 03/20/2013 OTTONIEL NICOLE APRN A 131.01 VAGINITIS (TRICHOMONAS VAGINALIS) 03/20/2013 NISHANT NICOLE APRNYL A V01.6 EXPOSURE TO VENEREAL DISEASES 03/20/2013 COREY LAN OTTONIEL A V65.45 STD COUNSELING 03/20/2013 COREY LAN OTTONIEL A V69.2 HIGH-RISK SEXUAL BEHAVIOR 03/20/2013 BENSON NAVARRO APRN R 131.01 VAGINITIS (TRICHOMONAS VAGINALIS) 03/20/2013 RALPH NAVARRO APRNINA R V01.6 EXPOSURE TO VENEREAL DISEASES 03/20/2013 RALPH NAVARRO APRNINA R V65.45 STD COUNSELING 03/20/2013 RALPH NAVARRO APRNINA R V69.2 HIGH-RISK SEXUAL BEHAVIOR 03/20/2013 DOWELL LSCS, PATRICE A 131.01 VAGINITIS (TRICHOMONAS VAGINALIS) 03/20/2013 [facility] [place] PATRICE A V01.6 EXPOSURE TO VENEREAL DISEASES 03/20/2013 [facility] PATRICE A V65.45 STD COUNSELING 03/20/2013 [facility] A V69.2 HIGH-RISK SEXUAL BEHAVIOR 03/20/2013 MELANIE LAN BENSON R 131.01 VAGINITIS (TRICHOMONAS VAGINALIS) 03/20/2013 MELANIE LAN BENSON R V01.6 EXPOSURE TO VENEREAL DISEASES 03/20/2013 [facility], BENSON R V65.45 STD COUNSELING 03/20/2013 MELANIE LAN BENSON R V69.2 HIGH-RISK SEXUAL BEHAVIOR 03/20/2013 MELANIE LAN, BENSON R 131.01 VAGINITIS (TRICHOMONAS VAGINALIS) 03/20/2013 MELANIE LAN BENSON R V01.6 EXPOSURE TO VENEREAL DISEASES 03/20/2013 MELANIE LAN, BENSON R V65.45 STD COUNSELING 03/20/2013 MELANIE LAN BENSON R V69.2 HIGH-RISK SEXUAL BEHAVIOR 03/20/2013 SAI PEREZ MD 131.01 VAGINITIS (TRICHOMONAS VAGINALIS) 03/20/2013 SAI PEREZ MD V01.6 EXPOSURE TO VENEREAL DISEASES 03/20/2013 SAI PEREZ MD V65.45 STD COUNSELING 03/20/2013 SAI PEREZ MD V69.2 HIGH-RISK SEXUAL BEHAVIOR 03/20/2013 SHAY SAINZ DO 131.01 VAGINITIS (TRICHOMONAS VAGINALIS) 03/20/2013 SHAY SAINZ DO V01.6 EXPOSURE TO VENEREAL DISEASES 03/20/2013 SHAY SAINZ DO K V65.45 STD COUNSELING 03/20/2013 SHAY SAINZ DO V69.2 HIGH-RISK SEXUAL BEHAVIOR 03/20/2013 LAZARA MELTON APRN 131.01 VAGINITIS (TRICHOMONAS VAGINALIS) 03/20/2013 LAZARA MELTON APRN V01.6 EXPOSURE TO VENEREAL DISEASES 03/20/2013 LAZARA MELTON APRN V65.45 STD COUNSELING 03/20/2013 LAZARA MELTON APRN V69.2 HIGH-RISK SEXUAL BEHAVIOR 03/20/2013 SAINZ DO, SHAY K 131.01 VAGINITIS (TRICHOMONAS VAGINALIS) 03/20/2013 SAINZ DO, SHAY K V01.6 EXPOSURE TO VENEREAL DISEASES 03/20/2013 SAINZ DO, SHAY K V65.45 STD COUNSELING 03/20/2013 SAINZ DO, SHAY K V69.2 HIGH-RISK SEXUAL BEHAVIOR 03/20/2013 LINH BREWERN, LAZARA A 131.01 VAGINITIS (TRICHOMONAS VAGINALIS) 03/20/2013 [facility] LAZARA A V01.6 EXPOSURE TO VENEREAL DISEASES 03/20/2013 [facility] LAZARA A V65.45 STD COUNSELING 03/20/2013 [facility] LAZARA A V69.2 HIGH-RISK SEXUAL BEHAVIOR 03/20/2013 [facility], LAZARA A 131.01 VAGINITIS (TRICHOMONAS VAGINALIS) 03/20/2013 [facility] LAZARA A V01.6 EXPOSURE TO VENEREAL DISEASES 03/20/2013 [facility], LAZARA A V65.45 STD COUNSELING 03/20/2013 [facility], LAZARA A V69.2 HIGH-RISK SEXUAL BEHAVIOR 03/20/2013 SAINZ DO, SHAY K 131.01 VAGINITIS (TRICHOMONAS VAGINALIS) 03/20/2013 SAINZ DO, SHAY K V01.6 EXPOSURE TO VENEREAL DISEASES 03/20/2013 SAINZ DO, SHAY K V65.45 STD COUNSELING 03/20/2013 SAINZ DO SHAY K V69.2 HIGH-RISK SEXUAL BEHAVIOR 03/20/2013 MIKE ANDERSON APRN 131.01 VAGINITIS (TRICHOMONAS VAGINALIS) 03/20/2013 MIKE ANDERSON APRN V01.6 EXPOSURE TO VENEREAL DISEASES 03/20/2013 MIKE ANDERSON APRN V65.45 STD COUNSELING 03/20/2013 MIKE ANDERSON APRN V69.2 HIGH-RISK SEXUAL BEHAVIOR 03/20/2013 SAINZ DO, SHAY K 131.01 VAGINITIS (TRICHOMONAS VAGINALIS) 03/20/2013 SAINZ DO, SHAY K V01.6 EXPOSURE TO VENEREAL DISEASES 03/20/2013 SAINZ DO SHAY K V65.45 STD COUNSELING 03/20/2013 SAINZ DO, SHAY K V69.2 HIGH-RISK SEXUAL BEHAVIOR 03/20/2013 SAINZ DO, SHAY K 131.01 VAGINITIS (TRICHOMONAS VAGINALIS) 03/20/2013 SAINZ DO, SHAY K V01.6 EXPOSURE TO VENEREAL DISEASES 03/20/2013 SAINZ DO, SHAY K V65.45 STD COUNSELING 03/20/2013 SAINZ DO, SHAY K V69.2 HIGH-RISK SEXUAL BEHAVIOR 03/20/2013 SAINZ DO, SHAY K 131.01 VAGINITIS (TRICHOMONAS VAGINALIS) 03/20/2013 SAINZ DO, SHAY K V01.6 EXPOSURE TO VENEREAL DISEASES 03/20/2013 SAINZ DO, SHAY K V65.45 STD COUNSELING 03/20/2013 SAINZ DO, SHAY K V69.2 HIGH-RISK SEXUAL BEHAVIOR 03/20/2013 SAINZ DO, SHAY K 131.01 VAGINITIS (TRICHOMONAS VAGINALIS) 03/20/2013 SAINZ DO SHAY K V01.6 EXPOSURE TO VENEREAL DISEASES 03/20/2013 SAINZ DO SHAY K V65.45 STD COUNSELING 03/20/2013 SAINZ DO SHAY K V69.2 HIGH-RISK SEXUAL BEHAVIOR 03/20/2013 SAINZ DO, SHAY K 131.01 VAGINITIS (TRICHOMONAS VAGINALIS) 03/20/2013 SAINZ DO, SHAY K V01.6 EXPOSURE TO VENEREAL DISEASES 03/20/2013 SAINZ DO SHAY K V65.45 STD COUNSELING 03/20/2013 SAINZ DO SHAY K V69.2 HIGH-RISK SEXUAL BEHAVIOR 03/20/2013 SAINZ DO, SHAY K 131.01 VAGINITIS (TRICHOMONAS VAGINALIS) 03/20/2013 SAINZ DO SHAY K V01.6 EXPOSURE TO VENEREAL DISEASES 03/20/2013 SAINZ DO, SHAY K V65.45 STD COUNSELING 03/20/2013 SAINZ DO, SHAY K V69.2 HIGH-RISK SEXUAL BEHAVIOR 03/20/2013 SAINZ DO, SHAY K 131.01 VAGINITIS (TRICHOMONAS VAGINALIS) 03/20/2013 SAINZ DO, SHAY K V01.6 EXPOSURE TO VENEREAL DISEASES 03/20/2013 SAINZ DO, SHAY K V65.45 STD COUNSELING 03/20/2013 SAINZ DO SHAY K V69.2 HIGH-RISK SEXUAL BEHAVIOR 03/20/2013 SAINZ DO, SHAY K 131.01 VAGINITIS (TRICHOMONAS VAGINALIS) 03/20/2013 EMELI HUGHES SHAY K V01.6 EXPOSURE TO VENEREAL DISEASES 03/20/2013 EMELI HUGHES SHAY K V65.45 STD COUNSELING 03/20/2013 EMELI HUGHES SHAY K V69.2 HIGH-RISK SEXUAL BEHAVIOR 03/20/2013 ROBERTO FIGUEROA MD 131.01 VAGINITIS (TRICHOMONAS VAGINALIS) 03/20/2013 ROBERTO FIGUEROA MD V01.6 EXPOSURE TO VENEREAL DISEASES 03/20/2013 ROBERTO FIGUEROA MD V65.45 STD COUNSELING 03/20/2013 ROBERTO FIGUEROA MD V69.2 HIGH-RISK SEXUAL BEHAVIOR 03/20/2013 LAZARA MELTON APRN A 131.01 VAGINITIS (TRICHOMONAS VAGINALIS) 03/20/2013 LAZARA MELTON APRN A V01.6 EXPOSURE TO VENEREAL DISEASES 03/20/2013 LAZARA MELTON APRN A V65.45 STD COUNSELING 03/20/2013 LAZARA MELTON APRN A V69.2 HIGH-RISK SEXUAL BEHAVIOR 03/20/2013 LAZARA MELTON APRN A 131.01 VAGINITIS (TRICHOMONAS VAGINALIS) 03/20/2013 LAZARA MELTON APRN A V01.6 EXPOSURE TO VENEREAL DISEASES 03/20/2013 JASON MELTON APRNIDI A V65.45 STD COUNSELING 03/20/2013 LAZARA MELTON APRN A V69.2 HIGH-RISK SEXUAL BEHAVIOR 03/20/2013 SAINZ TAWNY HUGHESA K 131.01 VAGINITIS (TRICHOMONAS VAGINALIS) 03/20/2013 EMELI HUGHESTAWNYA K V01.6 EXPOSURE TO VENEREAL DISEASES 03/20/2013 EMELI HUGHES SHAY K V65.45 STD COUNSELING 03/20/2013 SAINZ DO SHAY K V69.2 HIGH-RISK SEXUAL BEHAVIOR 03/20/2013 BENSON NAVARRO APRN 131.01 VAGINITIS (TRICHOMONAS VAGINALIS) 03/20/2013 BENSON NAVARRO APRN V01.6 EXPOSURE TO VENEREAL DISEASES 03/20/2013 BENSON NAVARRO APRN V65.45 STD COUNSELING 03/20/2013 [facility], BENSON R V69.2 HIGH-RISK SEXUAL BEHAVIOR 03/20/2013 LAZARA MELTON APRN A 131.01 VAGINITIS (TRICHOMONAS VAGINALIS) 03/20/2013 LINHLAZARA OTERO APRN A V01.6 EXPOSURE TO VENEREAL DISEASES 03/20/2013 LINHLAZARA OTERO APRN A V65.45 STD COUNSELING 03/20/2013 LINHLAZARA Fernandez APRN A V69.2 HIGH-RISK SEXUAL BEHAVIOR 03/20/2013 SAINZ DO SHAY K 131.01 VAGINITIS (TRICHOMONAS VAGINALIS) 03/20/2013 SAINZ , SHAY K V01.6 EXPOSURE TO VENEREAL DISEASES 03/20/2013 SAINZ , SHAY K V65.45 STD COUNSELING 03/20/2013 EMELI HUGHES, SHAY K V69.2 HIGH-RISK SEXUAL BEHAVIOR 03/20/2013 BENSON NAVARRO APRN 131.01 VAGINITIS (TRICHOMONAS VAGINALIS) 03/20/2013 BENSON NAVARRO APRN V01.6 EXPOSURE TO VENEREAL DISEASES 03/20/2013 BENSON NAVARRO APRN V65.45 STD COUNSELING 03/20/2013 BENSON NAVARRO APRN V69.2 HIGH-RISK SEXUAL BEHAVIOR 03/20/2013 LAZARA MELTON APRN A 131.01 VAGINITIS (TRICHOMONAS VAGINALIS) 03/20/2013 LAZARA MELTON APRN A V01.6 EXPOSURE TO VENEREAL DISEASES 03/20/2013 LAZARA MELTON APRN A V65.45 STD COUNSELING 03/20/2013 LAZARA MELTON APRN A V69.2 HIGH-RISK SEXUAL BEHAVIOR 03/20/2013 BENSON NAVARRO APRN R 131.01 VAGINITIS (TRICHOMONAS VAGINALIS) 03/20/2013 BENSON NAVARRO APRN R V01.6 EXPOSURE TO VENEREAL DISEASES 03/20/2013 BENSON NAVARRO APRN V65.45 STD COUNSELING 03/20/2013 BENSON NAVARRO APRN V69.2 HIGH-RISK SEXUAL BEHAVIOR 06/04/2013 BENSON NAVARRO APRN 719.47 PAIN- ANKLE 06/04/2013 BENSON NAVARRO APRN 789.07 ABDOMINAL PAIN GENERALIZED 06/04/2013 [facility], BENSON R E956 SUICIDE AND SELF-INFLICTED INJURY BY CUTTING AND PIERCING INSTRUMENT 06/04/2013 [facility] BENSON R E958.9 SUICIDE AND SELF-INFLICTED INJURY BY UNSPECIFIED MEANS 06/04/2013 [facility], PATRICE A 719.47 PAIN- ANKLE 06/04/2013 [facility], PATRICE A 789.07 ABDOMINAL PAIN GENERALIZED 06/04/2013 [facility], PATRICE A E956 SUICIDE AND SELF-INFLICTED INJURY BY CUTTING AND PIERCING INSTRUMENT 06/04/2013 [facility], PATRICE A E958.9 SUICIDE AND SELF-INFLICTED INJURY BY UNSPECIFIED MEANS 06/04/2013 [facility]PH[facility]EN[facility] R 719.47 PAIN- ANKLE 06/04/2013 [facility] BENSON R 789.07 ABDOMINAL PAIN GENERALIZED 06/04/2013 RALPH NAVARRO APRNINA R E956 SUICIDE AND SELF-INFLICTED INJURY BY CUTTING AND PIERCING INSTRUMENT 06/04/2013 RALPH NAVARRO APRNINA R E958.9 SUICIDE AND SELF-INFLICTED INJURY BY UNSPECIFIED MEANS 06/04/2013 MELANIE LAN BENSON R 719.47 PAIN- ANKLE 06/04/2013 [facility], BENSON R 789.07 ABDOMINAL PAIN GENERALIZED 06/04/2013 RALPH NAVARRO APRNINA R E956 SUICIDE AND SELF-INFLICTED INJURY BY CUTTING AND PIERCING INSTRUMENT 06/04/2013 MELANIE LAN BENSON R E958.9 SUICIDE AND SELF-INFLICTED INJURY BY UNSPECIFIED MEANS 06/04/2013 SAI PEREZ MD 719.47 PAIN- ANKLE 06/04/2013 SAI PEREZ MD 789.07 ABDOMINAL PAIN GENERALIZED 06/04/2013 SAI PEREZ MD E956 SUICIDE AND SELF-INFLICTED INJURY BY CUTTING AND PIERCING INSTRUMENT 06/04/2013 SAI PEREZ MD E958.9 SUICIDE AND SELF-INFLICTED INJURY BY UNSPECIFIED MEANS 06/04/2013 TAWNY SAINZ DOA Fer 719.47 PAIN- ANKLE 06/04/2013 TAWNY SAINZ DOA K 789.07 ABDOMINAL PAIN GENERALIZED 06/04/2013 SAINZ SHAY HUGHES E956 SUICIDE AND SELF-INFLICTED INJURY BY CUTTING AND PIERCING INSTRUMENT 06/04/2013 TAWNY SAINZ DOA K E958.9 SUICIDE AND SELF-INFLICTED INJURY BY UNSPECIFIED MEANS 06/04/2013 LIN[facility] BREWERN, LAZARA A 719.47 PAIN- ANKLE 06/04/2013 LIN[facility] BREWERN, LAZARA A 789.07 ABDOMINAL PAIN GENERALIZED 06/04/2013 LINH BREWERN, LAZARA A E956 SUICIDE AND SELF-INFLICTED INJURY BY CUTTING AND PIERCING INSTRUMENT 06/04/2013 LINH BREWERN, LAZARA A E958.9 SUICIDE AND SELF-INFLICTED INJURY BY UNSPECIFIED MEANS 06/04/2013 SAINZ DO, SHAY K 719.47 PAIN- ANKLE 06/04/2013 SAINZ DO, SHAY K 789.07 ABDOMINAL PAIN GENERALIZED 06/04/2013 SAINZ DO, SHAY K E956 SUICIDE AND SELF-INFLICTED INJURY BY CUTTING AND PIERCING INSTRUMENT 06/04/2013 SAINZ DO, SHAY K E958.9 SUICIDE AND SELF-INFLICTED INJURY BY UNSPECIFIED MEANS 06/04/2013 [facility], LAZARA A 719.47 PAIN- ANKLE 06/04/2013 LINH BREWERN, LAZARA A 789.07 ABDOMINAL PAIN GENERALIZED 06/04/2013 LINH BREWERN, LAZARA A E956 SUICIDE AND SELF-INFLICTED INJURY BY CUTTING AND PIERCING INSTRUMENT 06/04/2013 LINH BREWERN, LAZARA A E958.9 SUICIDE AND SELF-INFLICTED INJURY BY UNSPECIFIED MEANS 06/04/2013 [facility], LAZARA A 719.47 PAIN- ANKLE 06/04/2013 [facility], LAZARA A 789.07 ABDOMINAL PAIN GENERALIZED 06/04/2013 [facility], LAZARA A E956 SUICIDE AND SELF-INFLICTED INJURY BY CUTTING AND PIERCING INSTRUMENT 06/04/2013 [facility], LAZARA A E958.9 SUICIDE AND SELF-INFLICTED INJURY BY UNSPECIFIED MEANS 06/04/2013 SAINZ DO, SHAY K 719.47 PAIN- ANKLE 06/04/2013 SAINZ DO, SHAY K 789.07 ABDOMINAL PAIN GENERALIZED 06/04/2013 SAINZ DO, SHAY K E956 SUICIDE AND SELF-INFLICTED INJURY BY CUTTING AND PIERCING INSTRUMENT 06/04/2013 SAINZ DO, SHAY K E958.9 SUICIDE AND SELF-INFLICTED INJURY BY UNSPECIFIED MEANS 06/04/2013 MIKE ANDERSON APRN 719.47 PAIN- ANKLE 06/04/2013 MIKE ANDERSON APRN 789.07 ABDOMINAL PAIN GENERALIZED 06/04/2013 MIKE ANDERSON APRN E956 SUICIDE AND SELF-INFLICTED INJURY BY CUTTING AND PIERCING INSTRUMENT 06/04/2013 MIKE ANDERSON APRN E958.9 SUICIDE AND SELF-INFLICTED INJURY BY UNSPECIFIED MEANS 06/04/2013 SAINZ DOTAWNYA K 719.47 PAIN- ANKLE 06/04/2013 SAINZ DO SHAY K 789.07 ABDOMINAL PAIN GENERALIZED 06/04/2013 SAINZ DO SHAY K E956 SUICIDE AND SELF-INFLICTED INJURY BY CUTTING AND PIERCING INSTRUMENT 06/04/2013 SAINZ DO, SHAY K E958.9 SUICIDE AND SELF-INFLICTED INJURY BY UNSPECIFIED MEANS 06/04/2013 SAINZ DO SHAY K 719.47 PAIN- ANKLE 06/04/2013 SAINZ DO SHAY K 789.07 ABDOMINAL PAIN GENERALIZED 06/04/2013 SAINZ DO SHAY K E956 SUICIDE AND SELF-INFLICTED INJURY BY CUTTING AND PIERCING INSTRUMENT 06/04/2013 SAINZ DO, SHAY K E958.9 SUICIDE AND SELF-INFLICTED INJURY BY UNSPECIFIED MEANS 06/04/2013 SAINZ DO SHAY K 719.47 PAIN- ANKLE 06/04/2013 SAINZ DO SHAY K 789.07 ABDOMINAL PAIN GENERALIZED 06/04/2013 SAINZ DO, SHAY K E956 SUICIDE AND SELF-INFLICTED INJURY BY CUTTING AND PIERCING INSTRUMENT 06/04/2013 SAINZ DO SHAY K E958.9 SUICIDE AND SELF-INFLICTED INJURY BY UNSPECIFIED MEANS 06/04/2013 SAINZ DO SHAY K 719.47 PAIN- ANKLE 06/04/2013 SAINZ DO, SHAY K 789.07 ABDOMINAL PAIN GENERALIZED 06/04/2013 SAINZ DO, SHAY K E956 SUICIDE AND SELF-INFLICTED INJURY BY CUTTING AND PIERCING INSTRUMENT 06/04/2013 SAINZ DO, SHAY K E958.9 SUICIDE AND SELF-INFLICTED INJURY BY UNSPECIFIED MEANS 06/04/2013 SAINZ DO SHAY K 719.47 PAIN- ANKLE 06/04/2013 SAINZ DO, SHAY K 789.07 ABDOMINAL PAIN GENERALIZED 06/04/2013 SAINZ DO, SHAY K E956 SUICIDE AND SELF-INFLICTED INJURY BY CUTTING AND PIERCING INSTRUMENT 06/04/2013 SAINZ DO, SHAY K E958.9 SUICIDE AND SELF-INFLICTED INJURY BY UNSPECIFIED MEANS 06/04/2013 SAINZ DO SHAY K 719.47 PAIN- ANKLE 06/04/2013 SAINZ DO SHAY K 789.07 ABDOMINAL PAIN GENERALIZED 06/04/2013 SAINZ DO SHAY K E956 SUICIDE AND SELF-INFLICTED INJURY BY CUTTING AND PIERCING INSTRUMENT 06/04/2013 SAINZ DO SHAY K E958.9 SUICIDE AND SELF-INFLICTED INJURY BY UNSPECIFIED MEANS 06/04/2013 SAINZ DOTAWNYA K 719.47 PAIN- ANKLE 06/04/2013 SAINZ DO SHAY K 789.07 ABDOMINAL PAIN GENERALIZED 06/04/2013 SAINZ DO SHAY K E956 SUICIDE AND SELF-INFLICTED INJURY BY CUTTING AND PIERCING INSTRUMENT 06/04/2013 SAINZ DOTAWNYA K E958.9 SUICIDE AND SELF-INFLICTED INJURY BY UNSPECIFIED MEANS 06/04/2013 SAINZ TAWNY HUGHESA K 719.47 PAIN- ANKLE 06/04/2013 SAINZ DOTAWNYA K 789.07 ABDOMINAL PAIN GENERALIZED 06/04/2013 SAINZ DOTAWNYA K E956 SUICIDE AND SELF-INFLICTED INJURY BY CUTTING AND PIERCING INSTRUMENT 06/04/2013 TAWNY SAINZ DOA K E958.9 SUICIDE AND SELF-INFLICTED INJURY BY UNSPECIFIED MEANS 06/04/2013 ROBERTO FIGUEROA MD 719.47 PAIN- ANKLE 06/04/2013 ROBERTO FIGUEROA MD 789.07 ABDOMINAL PAIN GENERALIZED 06/04/2013 ROBERTO FIGUEROA MD E956 SUICIDE AND SELF-INFLICTED INJURY BY CUTTING AND PIERCING INSTRUMENT 06/04/2013 ROBERTO FIGUEROA MD E958.9 SUICIDE AND SELF-INFLICTED INJURY BY UNSPECIFIED MEANS 06/04/2013 LAZARA MELTON APRN 719.47 PAIN- ANKLE 06/04/2013 LAZARA MELTON APRN 789.07 ABDOMINAL PAIN GENERALIZED 06/04/2013 LAZARA MELTON APRN E956 SUICIDE AND SELF-INFLICTED INJURY BY CUTTING AND PIERCING INSTRUMENT 06/04/2013 LAZARA MELTON APRN E958.9 SUICIDE AND SELF-INFLICTED INJURY BY UNSPECIFIED MEANS 06/04/2013 [facility] CONCIERGE, LAZARA A 719.47 PAIN- ANKLE 06/04/2013 [facility] CONCIERGE, LAZARA A 789.07 ABDOMINAL PAIN GENERALIZED 06/04/2013 [facility] CONCIERGE, LAZARA A E956 SUICIDE AND SELF-INFLICTED INJURY BY CUTTING AND PIERCING INSTRUMENT 06/04/2013 [facility] CONCIERGE, LAZARA A E958.9 SUICIDE AND SELF-INFLICTED INJURY BY UNSPECIFIED MEANS 06/04/2013 SAINZ DO, SHAY K 719.47 PAIN- ANKLE 06/04/2013 SAINZ DO, SHAY K 789.07 ABDOMINAL PAIN GENERALIZED 06/04/2013 SAINZ DO, SHAY K E956 SUICIDE AND SELF-INFLICTED INJURY BY CUTTING AND PIERCING INSTRUMENT 06/04/2013 SAINZ DO, SHAY K E958.9 SUICIDE AND SELF-INFLICTED INJURY BY UNSPECIFIED MEANS 06/04/2013 MELANIE LAN BENSON R 719.47 PAIN- ANKLE 06/04/2013 MELANIE LAN BENSON R 789.07 ABDOMINAL PAIN GENERALIZED 06/04/2013 MELANIE BREWERN BENSON R E956 SUICIDE AND SELF-INFLICTED INJURY BY CUTTING AND PIERCING INSTRUMENT 06/04/2013 MELANIE LAN BENSON R E958.9 SUICIDE AND SELF-INFLICTED INJURY BY UNSPECIFIED MEANS 06/04/2013 [facility] CONCIERGE, LAZARA A 719.47 PAIN- ANKLE 06/04/2013 [facility] CONCIERGE, LAZARA A 789.07 ABDOMINAL PAIN GENERALIZED 06/04/2013 [facility] CONCIERGE, LAZARA A E956 SUICIDE AND SELF-INFLICTED INJURY BY CUTTING AND PIERCING INSTRUMENT 06/04/2013 [facility] CONCIERGE, LAZARA A E958.9 SUICIDE AND SELF-INFLICTED INJURY BY UNSPECIFIED MEANS 06/04/2013 SAINZ DO, SHAY K 719.47 PAIN- ANKLE 06/04/2013 SAINZ DO, SHAY K 789.07 ABDOMINAL PAIN GENERALIZED 06/04/2013 SAINZ DO, SHAY K E956 SUICIDE AND SELF-INFLICTED INJURY BY CUTTING AND PIERCING INSTRUMENT 06/04/2013 SAINZ DO, SHAY K E958.9 SUICIDE AND SELF-INFLICTED INJURY BY UNSPECIFIED MEANS 06/04/2013 MELANIE LAN BENSON R 719.47 PAIN- ANKLE 06/04/2013 RALPH NAVARRO APRNINA R 789.07 ABDOMINAL PAIN GENERALIZED 06/04/2013 RALPH NAVARRO APRNINA R E956 SUICIDE AND SELF-INFLICTED INJURY BY CUTTING AND PIERCING INSTRUMENT 06/04/2013 RALPH NAVARRO APRNINA R E958.9 SUICIDE AND SELF-INFLICTED INJURY BY UNSPECIFIED MEANS 06/04/2013 JASON MELTON APRNIDI A 719.47 PAIN- ANKLE 06/04/2013 JASON MELTON APRNIDI A 789.07 ABDOMINAL PAIN GENERALIZED 06/04/2013 JASON MELTON APRNIDI A E956 SUICIDE AND SELF-INFLICTED INJURY BY CUTTING AND PIERCING INSTRUMENT 06/04/2013 LAZARA MELTON APRN A E958.9 SUICIDE AND SELF-INFLICTED INJURY BY UNSPECIFIED MEANS 06/04/2013 RALPH NAVARRO APRNINA R 719.47 PAIN- ANKLE 06/04/2013 RALPH NAVARRO APRNINA R 789.07 ABDOMINAL PAIN GENERALIZED 06/04/2013 RALPH NAVARRO APRNINA R E956 SUICIDE AND SELF-INFLICTED INJURY BY CUTTING AND PIERCING INSTRUMENT 06/04/2013 RALPH NAVARRO APRNINA R E958.9 SUICIDE AND SELF-INFLICTED INJURY BY UNSPECIFIED MEANS 06/20/2013 BENSON NAVARRO APRN R V72.42 EXAMINATION OR TEST POSITIVE RESULT 06/20/2013 BENSON NAVARRO APRN R V72.42 EXAMINATION OR TEST POSITIVE RESULT 06/20/2013 SAI PEREZ MD V72.42 EXAMINATION OR TEST POSITIVE RESULT 06/20/2013 SHAY SAINZ DO V72.42 EXAMINATION OR TEST POSITIVE RESULT 06/20/2013 LAZARA MELTON APRN A V72.42 EXAMINATION OR TEST POSITIVE RESULT 06/20/2013 SHAY SAINZ DO V72.42 EXAMINATION OR TEST POSITIVE RESULT 06/20/2013 LAZARA MELTON APRN A V72.42 EXAMINATION OR TEST POSITIVE RESULT 06/20/2013 LAZARA MELTON APRN A V72.42 EXAMINATION OR TEST POSITIVE RESULT 06/20/2013 SHAY SAINZ DO V72.42 EXAMINATION OR TEST POSITIVE RESULT 06/20/2013 MIKE ANDERSON APRN V72.42 EXAMINATION OR TEST POSITIVE RESULT 06/20/2013 SAINZ DO, SHAY K V72.42 EXAMINATION OR TEST POSITIVE RESULT 06/20/2013 SAINZ DO, SHAY K V72.42 EXAMINATION OR TEST POSITIVE RESULT 06/20/2013 SAINZ DO, SHAY K V72.42 EXAMINATION OR TEST POSITIVE RESULT 06/20/2013 SAINZ DO, SHAY K V72.42 EXAMINATION OR TEST POSITIVE RESULT 06/20/2013 SAINZ DO, SHAY K V72.42 EXAMINATION OR TEST POSITIVE RESULT 06/20/2013 SAINZ DO, SHAY K V72.42 EXAMINATION OR TEST POSITIVE RESULT 06/20/2013 SAINZ DO, SHAY K V72.42 EXAMINATION OR TEST POSITIVE RESULT 06/20/2013 SAINZ DO, SHAY K V72.42 EXAMINATION OR TEST POSITIVE RESULT 06/20/2013 ROBERTO FIGUEROA MD V72.42 EXAMINATION OR TEST POSITIVE RESULT 06/20/2013 LAZARA MELTON APRN A V72.42 EXAMINATION OR TEST POSITIVE RESULT 06/20/2013 LAZARA MELTON APRN A V72.42 EXAMINATION OR TEST POSITIVE RESULT 06/20/2013 SAINZ DO, SHAY K V72.42 EXAMINATION OR TEST POSITIVE RESULT 06/20/2013 BENSON NAVARRO APRN R V72.42 EXAMINATION OR TEST POSITIVE RESULT 06/20/2013 LAZARA MELTON APRN A V72.42 EXAMINATION OR TEST POSITIVE RESULT 06/20/2013 SAINZ DO, SHAY K V72.42 EXAMINATION OR TEST POSITIVE RESULT 06/20/2013 BENSON NAVARRO APRN R V72.42 EXAMINATION OR TEST POSITIVE RESULT 06/20/2013 LAZARA MELTON APRN A V72.42 EXAMINATION OR TEST POSITIVE RESULT 06/20/2013 MELANIE LAN BENSON R V72.42 EXAMINATION OR TEST POSITIVE RESULT 06/25/2013 BENSON NAVARRO APRN R V23.83 SUPERVISION OF HIGH-RISK WITH YOUNG PRIMIGRAVIDA 06/25/2013 SAI PEREZ MD V23.83 SUPERVISION OF HIGH-RISK WITH YOUNG PRIMIGRAVIDA 06/25/2013 SAINZ DOSHAY V23.83 SUPERVISION OF HIGH-RISK WITH YOUNG PRIMIGRAVIDA 06/25/2013 LAZARA MELTON APRN V23.83 SUPERVISION OF HIGH-RISK WITH YOUNG PRIMIGRAVIDA 06/25/2013 SHAY SAINZ DO V23.83 SUPERVISION OF HIGH-RISK WITH YOUNG PRIMIGRAVIDA 06/25/2013 LAZARA MELTON APRN V23.83 SUPERVISION OF HIGH-RISK WITH YOUNG PRIMIGRAVIDA 06/25/2013 LAZARA MELTON APRN V23.83 SUPERVISION OF HIGH-RISK WITH YOUNG PRIMIGRAVIDA 06/25/2013 SHAY SAINZ DO V23.83 SUPERVISION OF HIGH-RISK WITH YOUNG PRIMIGRAVIDA 06/25/2013 MIKE ANDERSON APRN V23.83 SUPERVISION OF HIGH-RISK WITH YOUNG PRIMIGRAVIDA 06/25/2013 SHAY SAINZ DO V23.83 SUPERVISION OF HIGH-RISK WITH YOUNG PRIMIGRAVIDA 06/25/2013 SHAY SAINZ DO V23.83 SUPERVISION OF HIGH-RISK WITH YOUNG PRIMIGRAVIDA 06/25/2013 SHAY SAINZ DO V23.83 SUPERVISION OF HIGH-RISK WITH YOUNG PRIMIGRAVIDA 06/25/2013 SHAY SAINZ DO V23.83 SUPERVISION OF HIGH-RISK WITH YOUNG PRIMIGRAVIDA 06/25/2013 SHAY SAINZ DO V23.83 SUPERVISION OF HIGH-RISK WITH YOUNG PRIMIGRAVIDA 06/25/2013 SHAY SAINZ DO V23.83 SUPERVISION OF HIGH-RISK WITH YOUNG PRIMIGRAVIDA 06/25/2013 SHAY SAINZ DO V23.83 SUPERVISION OF HIGH-RISK WITH YOUNG PRIMIGRAVIDA 06/25/2013 SHAY SAINZ DO V23.83 SUPERVISION OF HIGH-RISK WITH YOUNG PRIMIGRAVIDA 06/25/2013 HENRY CONROY, ROBERTO Fernandez V23.83 SUPERVISION OF HIGH-RISK WITH YOUNG PRIMIGRAVIDA 06/25/2013 LAZARA MELTON APRN V23.83 SUPERVISION OF HIGH-RISK WITH YOUNG PRIMIGRAVIDA 06/25/2013 LAZARA MELTON APRN V23.83 SUPERVISION OF HIGH-RISK WITH YOUNG PRIMIGRAVIDA 06/25/2013 SHAY SAINZ DO V23.83 SUPERVISION OF HIGH-RISK WITH YOUNG PRIMIGRAVIDA 06/25/2013 BENSON NAVARRO APRN V23.83 SUPERVISION OF HIGH-RISK WITH YOUNG PRIMIGRAVIDA 06/25/2013 LAZARA MELTON APRN A V23.83 SUPERVISION OF HIGH-RISK WITH YOUNG PRIMIGRAVIDA 06/25/2013 SHAY SAINZ DO V23.83 SUPERVISION OF HIGH-RISK WITH YOUNG PRIMIGRAVIDA 06/25/2013 BENSON NAVARRO APRN V23.83 SUPERVISION OF HIGH-RISK WITH YOUNG PRIMIGRAVIDA 06/25/2013 LAZARA MELTON APRN V23.83 SUPERVISION OF HIGH-RISK WITH YOUNG PRIMIGRAVIDA 06/25/2013 BENSON NAVARRO APRN V23.83 SUPERVISION OF HIGH-RISK WITH YOUNG PRIMIGRAVIDA 07/03/2013 CHRIS CONROY, SAI 300.01 AN PANIC DIS W/O AGORA 07/03/2013 SHAY SAINZ DO 300.01 AN PANIC DIS W/O AGORA 07/03/2013 LAZARA MELTON APRN A 300.01 AN PANIC DIS W/O AGORA 07/03/2013 SHAY SAINZ DO 300.01 AN PANIC DIS W/O AGORA 07/03/2013 LAZARA MELTON APRN A 300.01 AN PANIC DIS W/O AGORA 07/03/2013 LAZARA MELTON APRN A 300.01 AN PANIC DIS W/O AGORA 07/03/2013 SHAY SAINZ DO 300.01 AN PANIC DIS W/O AGORA 07/03/2013 MIKE ANDERSON APRN 300.01 AN PANIC DIS W/O AGORA 07/03/2013 EMELI DOSHAY K 300.01 AN PANIC DIS W/O AGORA 07/03/2013 EMELI DOSHAY K 300.01 AN PANIC DIS W/O AGORA 07/03/2013 SAINZ DOTAWNYA K 300.01 AN PANIC DIS W/O AGORA 07/03/2013 SAINZ DOSHAY K 300.01 AN PANIC DIS W/O AGORA 07/03/2013 SAINZ DO, SHAY K 300.01 AN PANIC DIS W/O AGORA 07/03/2013 SAINZ DO, SHAY K 300.01 AN PANIC DIS W/O AGORA 07/03/2013 SAINZ DO, SHAY K 300.01 AN PANIC DIS W/O AGORA 07/03/2013 EMELI DOSHAY K 300.01 AN PANIC DIS W/O AGORA 07/03/2013 HENRY CONROY, ROBERTO N 300.01 AN PANIC DIS W/O AGORA 07/03/2013 [facility] CONCIERGE, LAZARA A 300.01 AN PANIC DIS W/O AGORA 07/03/2013 [facility] CONCIERGE, LAZARA A 300.01 AN PANIC DIS W/O AGORA 07/03/2013 SAINZ DO, SHAY K 300.01 AN PANIC DIS W/O AGORA 07/03/2013 MELANIE CLUB CONCIERGE, BENSON R 300.01 AN PANIC DIS W/O AGORA 07/03/2013 [facility] CONCIERGE, LAZARA A 300.01 AN PANIC DIS W/O AGORA 07/03/2013 SAINZ DO, SHAY K 300.01 AN PANIC DIS W/O AGORA 07/03/2013 MELANIE LAN BENSON R 300.01 AN PANIC DIS W/O AGORA 07/03/2013 [facility] CONCIERGE, LAZARA A 300.01 AN PANIC DIS W/O AGORA 07/03/2013 MELANIE LAN BENSON R 300.01 AN PANIC DIS W/O AGORA 07/15/2013 SAINZ DO, SHAY K V74.5 STD SCREEN 07/15/2013 [facility] CONCIERGE, LAZARA A V74.5 STD SCREEN 07/15/2013 SAINZ DO, SHAY K V74.5 STD SCREEN 07/15/2013 [facility] CONCIERGE, LAZARA A V74.5 STD SCREEN 07/15/2013 [facility] CONCIERGE, LAZARA A V74.5 STD SCREEN 07/15/2013 SAINZ DO, SHAY K V74.5 STD SCREEN 07/15/2013 MIKE ANDERSON APRN V74.5 STD SCREEN 07/15/2013 SAINZ DO, SHAY K V74.5 STD SCREEN 07/15/2013 SAINZ DO, SHAY K V74.5 STD SCREEN 07/15/2013 SAINZ DO, SHAY K V74.5 STD SCREEN 07/15/2013 SAINZ DO, SHAY K V74.5 STD SCREEN 07/15/2013 SAINZ DO, SHAY K V74.5 STD SCREEN 07/15/2013 SAINZ DO, SHAY K V74.5 STD SCREEN 07/15/2013 SAINZ DO, SHAY K V74.5 STD SCREEN 07/15/2013 SAINZ DO, SHAY K V74.5 STD SCREEN 07/15/2013 HENRY CONROY, ROBERTO N V74.5 STD SCREEN 07/15/2013 [facility] CONCIERGE, LAZARA A V74.5 STD SCREEN 07/15/2013 [facility] CONCIERGE, LAZARA A V74.5 STD SCREEN 07/15/2013 SAINZ DO, SHAY K V74.5 STD SCREEN 07/15/2013 MELANIE CLUB CONCIERGE, BENSON R V74.5 STD SCREEN 07/15/2013 [facility] CONCIERGE, LAZARA A V74.5 STD SCREEN 07/15/2013 SAINZ DO, SHAY K V74.5 STD SCREEN 07/15/2013 MELANIE CLUB CONCIERGE, BENSON R V74.5 STD SCREEN 07/15/2013 [facility] CONCIERGE, LAZARA A V74.5 STD SCREEN 07/15/2013 MELANIE CLUB CONCIERGE, BENSON R V74.5 STD SCREEN 08/12/2013 SHAY SAINZ DO 647.20 COMPL OF - STD UNSPECIFIED 08/12/2013 SHAY SAINZ DO V04.3 RUBELLA NON-IMMUNE - NEED FOR VACCINATION 08/12/2013 LINHLAZARA Fernandez APRN A 647.20 COMPL OF - STD UNSPECIFIED 08/12/2013 LINHLAZARA Fernandez APRN A V04.3 RUBELLA NON-IMMUNE - NEED FOR VACCINATION 08/12/2013 LINHLAZARA Fernandez APRN A 647.20 COMPL OF - STD UNSPECIFIED 08/12/2013 LINHLAZARA Fernandez APRN A V04.3 RUBELLA NON-IMMUNE - NEED FOR VACCINATION 08/12/2013 SHAY SAINZ DO 647.20 COMPL OF - STD UNSPECIFIED 08/12/2013 SHAY SAINZ DO V04.3 RUBELLA NON-IMMUNE - NEED FOR VACCINATION 08/12/2013 MIKE ANDERSON APRN 647.20 COMPL OF - STD UNSPECIFIED 08/12/2013 MIKE ANDERSON APRN V04.3 RUBELLA NON-IMMUNE - NEED FOR VACCINATION 08/12/2013 SHAY SAINZ DO 647.20 COMPL OF - STD UNSPECIFIED 08/12/2013 SHAY SAINZ DO V04.3 RUBELLA NON-IMMUNE - NEED FOR VACCINATION 08/12/2013 SHAY SAINZ DO 647.20 COMPL OF - STD UNSPECIFIED 08/12/2013 SAINZ DO, SHAY K V04.3 RUBELLA NON-IMMUNE - NEED FOR VACCINATION 08/12/2013 SAINZ DO, SHAY K 647.20 COMPL OF - STD UNSPECIFIED 08/12/2013 SAINZ DO, SHAY K V04.3 RUBELLA NON-IMMUNE - NEED FOR VACCINATION 08/12/2013 SAINZ DO, SHAY K 647.20 COMPL OF - STD UNSPECIFIED 08/12/2013 SAINZ DO, SHAY K V04.3 RUBELLA NON-IMMUNE - NEED FOR VACCINATION 08/12/2013 SAINZ DO, SHAY K 647.20 COMPL OF - STD UNSPECIFIED 08/12/2013 SAINZ DO, SHAY K V04.3 RUBELLA NON-IMMUNE - NEED FOR VACCINATION 08/12/2013 SAINZ DO, SHAY K 647.20 COMPL OF - STD UNSPECIFIED 08/12/2013 SAINZ DO, SHAY K V04.3 RUBELLA NON-IMMUNE - NEED FOR VACCINATION 08/12/2013 SAINZ DO, SHAY K 647.20 COMPL OF - STD UNSPECIFIED 08/12/2013 SAINZ DO, SHAY K V04.3 RUBELLA NON-IMMUNE - NEED FOR VACCINATION 08/12/2013 SAINZ DO, SHAY K 647.20 COMPL OF - STD UNSPECIFIED 08/12/2013 SAINZ DO, SHAY K V04.3 RUBELLA NON-IMMUNE - NEED FOR VACCINATION 08/12/2013 ROBERTO FIGUEROA MD N 647.20 COMPL OF - STD UNSPECIFIED 08/12/2013 ROBERTO FIGUEROA MD V04.3 RUBELLA NON-IMMUNE - NEED FOR VACCINATION 08/12/2013 LINH LAN, LAZARA A 647.20 COMPL OF - STD UNSPECIFIED 08/12/2013 LINH LAN, LAZARA A V04.3 RUBELLA NON-IMMUNE - NEED FOR VACCINATION 08/12/2013 LINH BREWERN, LAZARA A 647.20 COMPL OF - STD UNSPECIFIED 08/12/2013 LINH LAN, LAZARA A V04.3 RUBELLA NON-IMMUNE - NEED FOR VACCINATION 08/12/2013 SAINZ DO, SHAY K 647.20 COMPL OF - STD UNSPECIFIED 08/12/2013 SAINZ DO, SHAY K V04.3 RUBELLA NON-IMMUNE - NEED FOR VACCINATION 08/12/2013 MELANIE CLUB CONCIERGE, BENSON R 647.20 COMPL OF - STD UNSPECIFIED 08/12/2013 MELANIE CLUB CONCIERGE, BENSON R V04.3 RUBELLA NON-IMMUNE - NEED FOR VACCINATION 08/12/2013 [facility] CONCIERGE, LAZARA A 647.20 COMPL OF - STD UNSPECIFIED 08/12/2013 [facility] CONCIERGE, LAZARA A V04.3 RUBELLA NON-IMMUNE - NEED FOR VACCINATION 08/12/2013 SAINZ DO, SHAY K 647.20 COMPL OF - STD UNSPECIFIED 08/12/2013 SAINZ DO, SHAY K V04.3 RUBELLA NON-IMMUNE - NEED FOR VACCINATION 08/12/2013 MELANIE CLUB CONCIERGE, BENSON R 647.20 COMPL OF - STD UNSPECIFIED 08/12/2013 MELANIE CLUB CONCIERGE, BENSON R V04.3 RUBELLA NON-IMMUNE - NEED FOR VACCINATION 08/12/2013 LINH LAN, LAZARA A 647.20 COMPL OF - STD UNSPECIFIED 08/12/2013 JASON MELTON APRNIDI A V04.3 RUBELLA NON-IMMUNE - NEED FOR VACCINATION 08/12/2013 MELANIE BREWERN, BENSON R 647.20 COMPL OF - STD UNSPECIFIED 08/12/2013 MELANIE BREWERN, BENSON R V04.3 RUBELLA NON-IMMUNE - NEED FOR VACCINATION 09/03/2013 JASON MELTON APRNIDI A 133.0 SCABIES 09/03/2013 JASON MELTON APRNIDI A 133.0 SCABIES 09/03/2013 SAINZ DO, SHAY K 133.0 SCABIES 09/03/2013 MIKE ANDERSON APRN 133.0 SCABIES 09/03/2013 SAINZ DO, SHAY K 133.0 SCABIES 09/03/2013 SAINZ DO, SHAY K 133.0 SCABIES 09/03/2013 SAINZ DO, SHAY K 133.0 SCABIES 09/03/2013 SAINZ DO, SHAY K 133.0 SCABIES 09/03/2013 SAINZ DO, SHAY K 133.0 SCABIES 09/03/2013 SAINZ DO, SHAY K 133.0 SCABIES 09/03/2013 SAINZ DO, SHAY K 133.0 SCABIES 09/03/2013 SAINZ DO, SHAY K 133.0 SCABIES 09/03/2013 ROBERTO FIGUEROA MD 133.0 SCABIES 09/03/2013 [facility] CONCIERGE, LAZARA A 133.0 SCABIES 09/03/2013 [facility] CONCIERGE, LAZARA A 133.0 SCABIES 09/03/2013 SAINZ DO, SHAY K 133.0 SCABIES 09/03/2013 MELANIE CLUB CONCIERGE, BENSON R 133.0 SCABIES 09/03/2013 [facility] CONCIERGE, LAZARA A 133.0 SCABIES 09/03/2013 SAINZ DO, SHAY K 133.0 SCABIES 09/03/2013 MELANIE CLUB CONCIERGE, BENSON R 133.0 SCABIES 09/03/2013 [facility] CONCIERGE, LAZARA A 133.0 SCABIES 09/03/2013 MELANIE CLUB CONCIERGE, BENSON R 133.0 SCABIES 10/07/2013 SAINZ DO, SHAY K V22.0 , NORMAL FIRST 10/07/2013 MIKE ANDERSON APRN V22.0 , NORMAL FIRST 10/07/2013 SAINZ DO, SHAY K V22.0 , NORMAL FIRST 10/07/2013 SAINZ DO, SHAY K V22.0 , NORMAL FIRST 10/07/2013 SAINZ DO, SHAY K V22.0 , NORMAL FIRST 10/07/2013 SAINZ DO, SHAY K V22.0 , NORMAL FIRST 10/07/2013 SAINZ DO, SHAY K V22.0 , NORMAL FIRST 10/07/2013 SAINZ DO, SHAY K V22.0 , NORMAL FIRST 10/07/2013 SAINZ DO, SHAY K V22.0 , NORMAL FIRST 10/07/2013 SAINZ DO, SHAY K V22.0 , NORMAL FIRST 10/07/2013 ROBERTO FIGUEROA MD N V22.0 , NORMAL FIRST 10/07/2013 [facility] CONCIERGE, LAZARA A V22.0 , NORMAL FIRST 10/07/2013 [facility] CONCIERGE, LZAARA A V22.0 , NORMAL FIRST 10/07/2013 SAINZ DO, SHAY K V22.0 , NORMAL FIRST 10/07/2013 MELANIE CLUB CONCIERGE, BENSON R V22.0 , NORMAL FIRST 10/07/2013 LIN[facility] CONCIERGE, LAZARA A V22.0 , NORMAL FIRST 10/07/2013 SAINZ DO, SHAY K V22.0 , NORMAL FIRST 10/07/2013 MELANIE CLUB CONCIERGE, BENSON R V22.0 , NORMAL FIRST 10/07/2013 LIN[facility] CONCIERGE, LAZARA A V22.0 , NORMAL FIRST 10/07/2013 MELANIE CLUB CONCIERGE, BENSON R V22.0 , NORMAL FIRST 10/12/2013 MIKE ANDERSON APRN T 465.9 UPPER RESPIRATORY INFECTION 10/12/2013 SAINZ DO, SHAY K 465.9 UPPER RESPIRATORY INFECTION 10/12/2013 SAINZ DO, SHAY K 465.9 UPPER RESPIRATORY INFECTION 10/12/2013 SAINZ DO, SHAY K 465.9 UPPER RESPIRATORY INFECTION 10/12/2013 SAINZ DO, SHAY K 465.9 UPPER RESPIRATORY INFECTION 10/12/2013 SAINZ DO, SHAY K 465.9 UPPER RESPIRATORY INFECTION 10/12/2013 SAINZ DO, SHAY K 465.9 UPPER RESPIRATORY INFECTION 10/12/2013 SAINZ DO, SHAY K 465.9 UPPER RESPIRATORY INFECTION 10/12/2013 SAINZ DO, SHAY K 465.9 UPPER RESPIRATORY INFECTION 10/12/2013 HENRY CONROY, ROBERTO Fernandez 465.9 UPPER RESPIRATORY INFECTION 10/12/2013 LIN[facility] CONCIERGE, LAZARA A 465.9 UPPER RESPIRATORY INFECTION 10/12/2013 LIN[facility] CONCIERGE, LAZARA A 465.9 UPPER RESPIRATORY INFECTION 10/12/2013 SAINZ DO, SHAY K 465.9 UPPER RESPIRATORY INFECTION 10/12/2013 MELANIE CLUB CONCIERGE, BENSON R 465.9 UPPER RESPIRATORY INFECTION 10/12/2013 LIN[facility] CL[facility] CONCIERGE, LAZARA A 465.9 UPPER RESPIRATORY INFECTION 10/12/2013 SAINZ DO, SHAY K 465.9 UPPER RESPIRATORY INFECTION 10/12/2013 MELANIE CLUB CONCIERGE, BENSON R 465.9 UPPER RESPIRATORY INFECTION 10/12/2013 LIN[facility] CLUB CONCIERGE, LAZARA A 465.9 UPPER RESPIRATORY INFECTION 10/12/2013 MELANIE CLUB CONCIERGE, BENSON R 465.9 UPPER RESPIRATORY INFECTION 10/23/2013 SALVADOR CONROY, MILKA T Ot 789.00 ABDOMINAL PAIN, UNSPECIFIED SITE 10/23/2013 SALVADOR CONROY, MILKA Ward Ot V22.2 PREG STATE, INCIDENTAL 10/23/2013 SALVADOR CONROY, MILKA Ward Ot V71.4 OBSERV-ACCIDENT NEC 10/23/2013 SAINZ DO, SHAY K Ot V22.2 PREG STATE, INCIDENTAL 10/23/2013 SAINZ DOSHAY K Ot V71.4 OBSERV-ACCIDENT NEC 11/12/2013 SAINZ SHAY HUGHES Ot 648.93 OTH CURR COND-ANTEPARTUM 11/12/2013 SAINZ DO SHAY K Ot 789.00 ABDOMINAL PAIN, UNSPECIFIED SITE 11/18/2013 SAINZ DO, SHAY K V77.1 DIABETES SCREENING 11/18/2013 SAINZ DO, SHAY K V78.0 ANEMIA SCREENING 11/18/2013 SAINZ DO, SHAY K V77.1 DIABETES SCREENING 11/18/2013 SAINZ DO, SHAY K V78.0 ANEMIA SCREENING 11/18/2013 SAINZ DO, SHAY K V77.1 DIABETES SCREENING 11/18/2013 SAINZ DO, SHAY K V78.0 ANEMIA SCREENING 11/18/2013 SAINZ DO, SHAY K V77.1 DIABETES SCREENING 11/18/2013 SAINZ DO, SHAY K V78.0 ANEMIA SCREENING 11/18/2013 SAINZ DO, SHAY K V77.1 DIABETES SCREENING 11/18/2013 SAINZ DO, SHAY K V78.0 ANEMIA SCREENING 11/18/2013 SAINZ DO, SHAY K V77.1 DIABETES SCREENING 11/18/2013 SAINZ DO, SHAY K V78.0 ANEMIA SCREENING 11/18/2013 SAINZ DO, SHAY K V77.1 DIABETES SCREENING 11/18/2013 SAINZ DO, SHAY K V78.0 ANEMIA SCREENING 11/18/2013 ROBERTO FIGUEROA MD V77.1 DIABETES SCREENING 11/18/2013 ROBERTO FIGUEROA MD V78.0 ANEMIA SCREENING 11/18/2013 LAZARA MELTON APRN A V77.1 DIABETES SCREENING 11/18/2013 LAZARA MELTON APRN A V78.0 ANEMIA SCREENING 11/18/2013 LAZARA MELTON APRN A V77.1 DIABETES SCREENING 11/18/2013 LAZARA MELTON APRN A V78.0 ANEMIA SCREENING 11/18/2013 SAINZ DO, SHAY K V77.1 DIABETES SCREENING 11/18/2013 SAINZ DO, SHAY K V78.0 ANEMIA SCREENING 11/18/2013 BENSON NAVARRO APRN R V77.1 DIABETES SCREENING 11/18/2013 BENSON NAVARRO APRN R V78.0 ANEMIA SCREENING 11/18/2013 LINH CLUB CONCIERGE, LAZARA A V77.1 DIABETES SCREENING 11/18/2013 LINH CLUB CONCIERGE, LAZARA A V78.0 ANEMIA SCREENING 11/18/2013 SAINZ DO, SHAY K V77.1 DIABETES SCREENING 11/18/2013 SAINZ DO, SHAY K V78.0 ANEMIA SCREENING 11/18/2013 MELANIE CLUB CONCIERGE, BENSON R V77.1 DIABETES SCREENING 11/18/2013 MELANIE CLUB CONCIERGE, BENSON R V78.0 ANEMIA SCREENING 11/18/2013 LINH CLUB CONCIERGE, LAZARA A V77.1 DIABETES SCREENING 11/18/2013 LINH CLUB CONCIERGE, LAZARA A V78.0 ANEMIA SCREENING 11/18/2013 MELANIE CLUB CONCIERGE, BENSON R V77.1 DIABETES SCREENING 11/18/2013 MELANIE CLUB CONCIERGE, BENSON R V78.0 ANEMIA SCREENING 01/06/2014 SAINZ DO, SHAY K V78.0 ANEMIA SCREENING 01/06/2014 SAINZ DO, SHAY K V78.0 ANEMIA SCREENING 01/06/2014 SAINZ DO, SHAY K V78.0 ANEMIA SCREENING 01/06/2014 SAINZ DO, SHAY K V78.0 ANEMIA SCREENING 01/06/2014 ROBERTO FIGUEROA MD V78.0 ANEMIA SCREENING 01/06/2014 LINH LAN, LAZARA A V78.0 ANEMIA SCREENING 01/06/2014 LINHBRANDEN LAN, LAZARA A V78.0 ANEMIA SCREENING 01/06/2014 SAINZ DO, SHAY K V78.0 ANEMIA SCREENING 01/06/2014 MELANIE LAN, BENSON R V78.0 ANEMIA SCREENING 01/06/2014 LINH APRN, LAZARA A V78.0 ANEMIA SCREENING 01/06/2014 SAINZ DO, SHAY K V78.0 ANEMIA SCREENING 01/06/2014 MELANIE BREWERN, BENSON R V78.0 ANEMIA SCREENING 01/06/2014 LINH APRN, LAZARA A V78.0 ANEMIA SCREENING 01/06/2014 MELANIE BREWERN, BENSON R V78.0 ANEMIA SCREENING 01/13/2014 SAINZ DO, SHAY K 648.20 COMPL OF - ANEMIA 01/13/2014 SAINZ DO, SHAY K V02.51 GBS - CARRIER OR SUSPECTED CARRIER 01/13/2014 SAINZ DO, SHAY K 648.20 COMPL OF - ANEMIA 01/13/2014 SAINZ DO, SHAY K V02.51 GBS - CARRIER OR SUSPECTED CARRIER 01/13/2014 ROBERTO FIGUEROA MD N 648.20 COMPL OF - ANEMIA 01/13/2014 ROBERTO FIGUEROA MD V02.51 GBS - CARRIER OR SUSPECTED CARRIER 01/13/2014 LINHJASON Fernandez APRNIDI A 648.20 COMPL OF - ANEMIA 01/13/2014 [facility] JASON LANIDI A V02.51 GBS - CARRIER OR SUSPECTED CARRIER 01/13/2014 LINHJim LAN LAZARA A 648.20 COMPL OF - ANEMIA 01/13/2014 LINHJim LAN LAZARA A V02.51 GBS - CARRIER OR SUSPECTED CARRIER 01/13/2014 SHAY SAINZ DO K 648.20 COMPL OF - ANEMIA 01/13/2014 SHAY SAINZ DO V02.51 GBS - CARRIER OR SUSPECTED CARRIER 01/13/2014 MELANIE LAN, BENSON R 648.20 COMPL OF - ANEMIA 01/13/2014 MELANIE LAN BENSON R V02.51 GBS - CARRIER OR SUSPECTED CARRIER 01/13/2014 LINHJASON Fernandez APRNIDI A 648.20 COMPL OF - ANEMIA 01/13/2014 LINHJim LAN LAZARA A V02.51 GBS - CARRIER OR SUSPECTED CARRIER 01/13/2014 SHAY SAINZ DO K 648.20 COMPL OF - ANEMIA 01/13/2014 SHAY SAINZ DO K V02.51 GBS - CARRIER OR SUSPECTED CARRIER 01/13/2014 MELANIE LAN BENSON R 648.20 COMPL OF - ANEMIA 01/13/2014 MELANIE LAN, BENSON R V02.51 GBS - CARRIER OR SUSPECTED CARRIER 01/13/2014 LINHJASON Fernandez APRNIDI A 648.20 COMPL OF - ANEMIA 01/13/2014 LINHJim LAN LAZARA A V02.51 GBS - CARRIER OR SUSPECTED CARRIER 01/13/2014 MELANIE LAN BENSON R 648.20 COMPL OF - ANEMIA 01/13/2014 MELANIE LAN, BENSON R V02.51 GBS - CARRIER OR SUSPECTED CARRIER 01/22/2014 SHAY SAINZ DO Ot 285.9 ANEMIA NOS 01/22/2014 SHAY SAINZ DO Ot 648.21 ANEMIA-DELIVERED 01/22/2014 SHAY SAINZ DO Ot 648.91 OTH CURR COND-DELIVERED 01/22/2014 SHAY SAINZ DO Fer Ot 664.11 DEL W 2 DEG LACERAT-DEL 01/22/2014 EMELI HUGHESTAWNYA Fer Ot V02.51 GROUP B STREPT CARRIER/SUSPECTED CARRIER 01/22/2014 EMELI HUGHESTAWNYA Fer Ot V06.1 [id number], COMBINED [ 01/22/2014 SAINZ SHAY HUGHES Ot V06.4 [id number] 01/22/2014 SAINZ SHAY HUGHES Ot V27.0 DELIVER-SINGLE LIVEBORN 01/24/2014 HENRY CONROY, ROBERTO N 599.0 URINARY TRACT INFECTION 01/24/2014 LAZARA MELTON APRN A 599.0 URINARY TRACT INFECTION 01/24/2014 LAZARA MELTON APRN A 599.0 URINARY TRACT INFECTION 01/24/2014 SHAY SAINZ DO 599.0 URINARY TRACT INFECTION 01/24/2014 BENSON NAVARRO APRN R 599.0 URINARY TRACT INFECTION 01/24/2014 LAZARA MELTON APRN A 599.0 URINARY TRACT INFECTION 01/24/2014 SHAY SAINZ DO 599.0 URINARY TRACT INFECTION 01/24/2014 BENSON NAVARRO APRN R 599.0 URINARY TRACT INFECTION 01/24/2014 LAZARA MELTON APRN A 599.0 URINARY TRACT INFECTION 01/24/2014 BENSON NAVARRO APRN R 599.0 URINARY TRACT INFECTION 03/06/2014 LAZARA MELTON APRN A V25.09 CONTRACEPTIVE COUNSELING - GENERAL 03/06/2014 LAZARA MELTON APRN A V25.09 CONTRACEPTIVE COUNSELING - GENERAL 03/06/2014 SHAY SAINZ DO V25.09 CONTRACEPTIVE COUNSELING - GENERAL 03/06/2014 RALPH NAVARRO APRNINA R V25.09 CONTRACEPTIVE COUNSELING - GENERAL 03/06/2014 LAZARA MELTON APRN A V25.09 CONTRACEPTIVE COUNSELING - GENERAL 03/06/2014 SHAY SAINZ DO V25.09 CONTRACEPTIVE COUNSELING - GENERAL 03/06/2014 RALPH NAVARRO APRNINA R V25.09 CONTRACEPTIVE COUNSELING - GENERAL 03/06/2014 LAZARA MELTON APRN A V25.09 CONTRACEPTIVE COUNSELING - GENERAL 03/06/2014 MELANIE LAN, BENSON R V25.09 CONTRACEPTIVE COUNSELING - GENERAL 03/13/2014 LAZARA MELTON APRN A V25.11 IUD INSERTION 03/13/2014 SHAY SAINZ DO V25.11 IUD INSERTION 03/13/2014 MELANIE LAN, BENSON R V25.11 IUD INSERTION 03/13/2014 LINH LAN, LAZARA A V25.11 IUD INSERTION 03/13/2014 SHAY SAINZ DO V25.11 IUD INSERTION 03/13/2014 MELANIE LAN, BENSON R V25.11 IUD INSERTION 03/13/2014 LINH LAN, LAZARA A V25.11 IUD INSERTION 03/13/2014 MELANIE LAN, BENSON R V25.11 IUD INSERTION 04/01/2014 SHAY SAINZ DO V74.5 STD SCREEN 04/01/2014 MELANIE LAN, BENSON R V74.5 STD SCREEN 04/01/2014 LAZARA MELTON APRN A V74.5 STD SCREEN 04/01/2014 SHAY SAINZ DO V74.5 STD SCREEN 04/01/2014 MELANIE LAN, BENSON R V74.5 STD SCREEN 04/01/2014 JASON MELTON APRNIDI A V74.5 STD SCREEN 04/01/2014 MELANIE LAN, BENSON R V74.5 STD SCREEN 04/09/2014 MELANIE LAN, BENSON R 133.0 SCABIES 04/09/2014 JASON MELTON APRNIDI A 133.0 SCABIES 04/09/2014 SHAY SAINZ DO 133.0 SCABIES 04/09/2014 MELANIE LAN, BENSON R 133.0 SCABIES 04/09/2014 JASON MELTON APRNIDI A 133.0 SCABIES 04/09/2014 MELANIE LAN BENSON R 133.0 SCABIES 04/24/2014 LAZARA MELTON APRN A 787.02 NAUSEA ALONE 04/24/2014 LAZARA MELTON APRN A V25.42 CONTRACEPTION SURVEILLANCE (IUD) 04/24/2014 SHAY SAINZ DO 787.02 NAUSEA ALONE 04/24/2014 SHAY SAINZ DO V25.42 CONTRACEPTION SURVEILLANCE (IUD) 04/24/2014 BENSON NAVARRO APRN R 787.02 NAUSEA ALONE 04/24/2014 MELANIE LAN, BENSON R V25.42 CONTRACEPTION SURVEILLANCE (IUD) 04/24/2014 LAZARA MELTON APRN A 787.02 NAUSEA ALONE 04/24/2014 LINHJASON Fernandez APRNIDI A V25.42 CONTRACEPTION SURVEILLANCE (IUD) 04/24/2014 RALPH NAVARRO APRNINA R 787.02 NAUSEA ALONE 04/24/2014 RALPH NAVARRO APRNINA R V25.42 CONTRACEPTION SURVEILLANCE (IUD) 05/05/2014 EMELI HUGHES SHAY K 465.9 UPPER RESPIRATORY INFECTION 05/05/2014 RALPH NAVARRO APRNINA R 465.9 UPPER RESPIRATORY INFECTION 05/05/2014 LAZARA MELTON APRN A 465.9 UPPER RESPIRATORY INFECTION 05/05/2014 BENSON NAVARRO APRN R 465.9 UPPER RESPIRATORY INFECTION 05/29/2014 LAZARA MELTON APRN Ot V22.1 05/29/2014 LAZARA MELTON APRN Ot 647.23 05/29/2014 LAZARA MELTON APRN Ot V04.3 05/29/2014 LAZARA MELTON A EDYTA Ot V23.83 05/29/2014 JASON MELTONIDI A [employer] Ot V28.81 05/30/2014 JHONATAN CONROY, DEA Castillo Ot 789.01 ABDOMINAL PAIN, RIGHT UPPER QUADRANT 06/03/2014 RALPH NAVARRO APRNINA R 789.00 ABDOMINAL PAIN UNSPECIFIED SITE 06/03/2014 LAZARA MELTON APRN A 789.00 ABDOMINAL PAIN UNSPECIFIED SITE 06/03/2014 RALPH NAVARRO APRNINA R 789.00 ABDOMINAL PAIN UNSPECIFIED SITE 06/23/2014 JASON MELTON APRNIDI A V25.12 IUD REMOVAL 06/23/2014 LAZARA MELTON APRN A V25.9 CONTRACEPTION MANAGEMENT 06/23/2014 RALPH NAVARRO APRNINA R V25.12 IUD REMOVAL 06/23/2014 RALPH NAVRARO APRNINA R V25.9 CONTRACEPTION MANAGEMENT 08/06/2014 RALPH NAVARRO APRNINA R 054.9 HERPES SIMPLEX WITHOUT COMPLICATION 08/08/2014 Ot 038.9 SEPTICEMIA NOS 08/08/2014 Ot 276.8 HYPOPOTASSEMIA 08/08/2014 Ot 528.5 DISEASES OF LIPS 08/08/2014 Ot 995.91 SEPSIS 08/15/2014 BENSON NAVARRO APRN R 038.9 UNSPECIFIED SEPTICEMIA 09/16/2014 LINHJASONLAZARA Lisa [employer] Ot V22.1 09/16/2014 LINHLAZARA CLUB [employer] Ot 647.23 09/16/2014 LINH LAZARA Lisa [employer] Ot V04.3 09/16/2014 LINH LAZARA Gonzalez [employer] Ot V23.83 09/16/2014 LINHLAZARA CL[employer] CON[employer] Ot V28.81 09/16/2014 ALYCE LUGO [employer] Ot 780.4 DIZZINESS AND GIDDINESS 09/16/2014 ALYCE LUGO [employer] Ot 780.4 11/18/2014 LINH LAZARA Lisa [employer] Ot V22.1 11/18/2014 LINH LAZARA Gonzalez [employer] Ot 647.23 11/18/2014 LINH LAZARA Lisa [employer] Ot V04.3 11/18/2014 LINH LAZARA Gonzalez [employer] Ot V23.83 11/18/2014 LINH LAZARA Gonzalez [employer] Ot V28.81 11/19/2014 MIKE MILLER DO Ot 787.01 NAUSEA WITH VOMITING 11/19/2014 MIKE MILLER DO Ot 787.91 DIARRHEA 02/09/2018 LINH LAZARA Gonzalez [employer] Ot V22.1 SUPERVIS OTH NORMAL PREG 02/09/2018 LINH LAZARA Lisa [employer] Ot 647.23 OTHER VD-ANTEPARTUM 02/09/2018 LINH LAZARA A [employer] Ot V04.3 VACCIN FOR RUBELLA 02/09/2018 LINH LAZARA Lisa [employer] Ot V23.83 SUPRV HIGH-RISK PREG-YOUNG PRIMIGRAVIDA 02/09/2018 LINH LAZARA Lisa [employer] Ot V28.81 ENCOUNTER FOR ANATOMIC SURVEY 03/01/2018 LINH LAZARA Gonzalez [employer] Ot V22.1 SUPERVIS OTH NORMAL PREG 03/01/2018 LINH LAZARA A [employer] Ot 647.23 OTHER VD-ANTEPARTUM 03/01/2018 LINH LAZARA Lisa [employer] Ot V04.3 VACCIN FOR RUBELLA 03/01/2018 LINH, LAZARA A [employer] Ot V23.83 SUPRV HIGH-RISK PREG-YOUNG PRIMIGRAVIDA 03/01/2018 LAZARA MELTON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
[2018-07-08 21:51] VITALS: BP 0/0
== END 2018-07-08 19:17 | disposition left against medical advice (07) ==
LOC: EDUNIT# 18:25 → ER 18:26
DX: R42 Dizziness and giddiness (principal); R55 Syncope and collapse; F41.9 Anxiety disorder, unspecified; F31.9 Bipolar disorder, unspecified; F17.200 Nicotine dependence, unspecified, uncomplicated; Z90.89 Acquired absence of other organs; Z87.01 Personal history of pneumonia (recurrent); Z87.440 Personal history of urinary (tract) infections; Z87.19 Personal history of other diseases of the digestive system
CPT/HCPCS: 99281

== ENCOUNTER 2018-08-30 18:59 | Outpatient (CLI) | payer BC, MEDICAID ==
[~2018-08-30] VITALS: Ht 152.4 cm; Wt 75.3 kg
--- NOTE | 2018-08-30 19:10 | NUR ---
MYRIAM MORROW presented to unit via ambulatory from ED, accompanied by friend, with c/o LEAKING FLUIDS,CONTRACTIONS. MYRIAM MORROW weighed, gowned, voided, and to bed. EFHM and TOCO applied, VS taken. MYRIAM MORROW oriented to bed controls, call light, TV, heat, and A/C controls.
[2018-08-30 19:15] VITALS: BP 135/80
--- NOTE | 2018-08-30 19:43 | NUR ---
This RN called Dr Meyer to notify of patient arrival and c/o possible rupture of membranes. NOtified of negative nitrazine swab, FHR variablitiy, vs, and contraction pattern. New orders for discharge received.
--- NOTE | 2018-08-30 19:45 | NUR ---
FHR baseline of 135, accelerations present, no decelerations, moderate amplitude, two contractions present 12 minutes apart lasting approx 70 each. Abdomen non-tender, positive movement, membranes intact.
[2018-08-30] MEDS ORDERED: PREN-53 PO (19:47)
--- NOTE | 2018-08-30 19:55 | NUR ---
Discharge instructions reviewed and given to patient. Patient verbalized understanding. Patient and friend ambulated off of unit to private vehicle.
--- NOTE | 2018-08-31 13:19 | Physician Query-Final Dx ---
Clinic Account Progress/Dx Physician Query: Please give diagnosis Date of Service Aug 30, 2018 at 18:59 JAYSHREE VELÁZQUEZ Aug 31, 2018 13:19
--- NOTE | 2018-08-31 13:20 | Physician Query-Final Dx ---
JAYSHREE VELÁZQUEZ 08/31/18 1320: Clinic Account Progress/Dx Physician Query: Please give diagnosis Date of Service Aug 30, 2018 at 18:59 RUBÉN GANT DO 09/01/18 1218: Clinic Account Progress/Dx DIAGNOSIS: Diagnosis Not my patient, please read nursing notes. Looks like they contacted JAYSHREE Lees Aug 31, 2018 13:20 RUBÉN GANT DO Sep 01, 2018 12:18
--- NOTE | 2018-09-03 09:18 | Physician Query-Final Dx ---
JAYSHREE VELÁZQUEZ 09/03/18 0917: Clinic Account Progress/Dx Physician Query: Please give diagnosis Date of Service Aug 30, 2018 at 18:59 FRED HURTADO MD 09/03/18 1257: Clinic Account Progress/Dx DIAGNOSIS: Diagnosis Possible rupture of membranes at 36 weeks gestation. JAYSHREE VELÁZQUEZ Sep 03, 2018 09:17 FRED HURTADO MD Sep 03, 2018 12:57
== END 2018-08-30 19:55 | disposition home or self-care (01) ==
LOC: WSo 18:59 → LDRP 18:59 → WSo 19:55
PROVIDERS: ATTEND Family Medicine
DX: O99.89 Other specified diseases and conditions complicating pregnancy, childbirth and the puerperium (principal); Z3A.36 36 weeks gestation of pregnancy
CPT/HCPCS: 99213

== ENCOUNTER 2018-09-18 18:15 | Outpatient (CLI) | payer BC, MEDICAID ==
[~2018-09-18] VITALS: Ht 142.2 cm; Wt 75.8 kg
[~2018-09-18 18:15] MED LIST changes: +PREN-53 PO
--- NOTE | 2018-09-18 18:15 | NUR ---
MYRIAM MORROW presented to unit ambulatory from home accompanied by S.O. , with c/o CONTRACTIONS and lost mucous plug. MYRIAM MORROW weighed, gowned, voided, and to bed. EFVITALY and BINH applied, VS taken. MYRIAM MORROW oriented to bed controls, call light, TV, heat, and A/C controls. Addendum: 09/18/18 at 2011 by TRISTON KEARNEY RN Adeline watch was called so pt and S.O. were taken to hallway until watch was cancelled. 1844 Back in room and placed on monitor.
[2018-09-18 18:55] VITALS: BP 118/68
--- NOTE | 2018-09-18 19:50 | NUR ---
Dr Mcclure called in to OB to inquire about other laboring pts and was informed of pts admission. Informed physician that pt came in for possible loosing of mucous plug. Also stated she had had contractions but informed physician that the last this nurse was aware of she was not having regular contractions. Pt may go home if she desires and return in am for scheduled induction of labor.
--- NOTE | 2018-09-18 20:30 | NUR ---
D/C instructions given & explained, pt. verbalized understanding & signed, copy of D/C instructions to pt. Pt. left [facility] ambulatory, escorted by SO, to home via private vehicle.
[2018-09-19] MEDS ORDERED: IBUP-844 PO (17:29)
--- NOTE | 2018-09-19 18:20 | Physician Query-Final Dx ---
Clinic Account Progress/Dx DIAGNOSIS: Date Seen by Provider: Sep 18, 2018 Time Seen by Provider: 18:15 Contractions Gestational Age in Weeks: 38 Gestational Age in Days: 6 Progress Note: Not seen by provider, triage done by nursing. JAYSHREE VELÁZQUEZ September 19, 2018 18:20 ROBERTO FIGUEROA MD September 19, 2018 22:09
== END 2018-09-18 20:30 | disposition home or self-care (01) ==
LOC: WSo 18:15 → LDRP 18:16 → WSo 20:30
PROVIDERS: ATTEND Family Medicine
DX: O47.9 False labor, unspecified (principal)
CPT/HCPCS: 99213

== ENCOUNTER 2018-09-19 06:50 | Inpatient (IN) | payer BC, MEDICAID ==
[2018-09-19] VITALS (25 sets, daily range): BP systolic 115–182; BP diastolic 65–101
[~2018-09-19] VITALS: Ht 142.2 cm; Wt 75.3 kg
--- NOTE | 2018-09-19 07:00 | NUR ---
Arrived to unit for induction of labor. Wt obtained and to room 319. gowned and urine sample obtained. To bed and oriented to room, call light and surroundings.
[2018-09-19] MEDS ORDERED: D5 LR IV SOLUTION 1,000 ML IV SCH (08:20)
[2018-09-19] MEDS ORDERED: D5 LR IV SOLUTION 1,000 ML IV ONE (08:20)
[2018-09-19] MEDS ORDERED: OXYTOCIN/NORMAL SALINE 500 ML IV ONE (08:20)
[2018-09-19] MEDS ORDERED: OXYTOCIN/NORMAL SALINE 500 ML IV SCH ×2 (08:20→11:57)
[2018-09-19 08:28] LABS: BASOPHILS % (AUTO) 0 % (0-10); EOSINOPHILS # (AUTO) 0.3 10^3/uL (0.0-0.3); EOSINOPHILS % (AUTO) 2 % (0-10); HEMATOCRIT 38 % (35-52); HEMOGLOBIN 12.6 G/DL (11.5-16.0); LYMPHOCYTES # (AUTO) 2.5 X 10^3 (1.0-4.0); LYMPHOCYTES % (AUTO) 21 % (12-44); MEAN CORPUSCULAR HEMOGLOBIN 30 PG (25-34); MEAN CORPUSCULAR HGB CONC 33 G/DL (32-36); MEAN CORPUSCULAR VOLUME 90 FL (80-99); MEAN PLATELET VOLUME 11.3 FL (7.4-10.4); MONOCYTES # (AUTO) 0.8 X 10^3 (0.0-1.0); MONOCYTES % (AUTO) 7 % (0-12); NEUTROPHILS % (AUTO) 69 % (42-75); PLATELET COUNT 226 10^3/uL (130-400); RED CELL DISTRIBUTION WIDTH 13.1 % (10.0-14.5); WHITE BLOOD COUNT 11.6 10^3/uL (4.3-11.0)
[2018-09-19] MEDS ORDERED: MINERAL OIL CONCENTRATE 99.9% 15 ML UDC TOP PRN (08:30)
[2018-09-19] MEDS ORDERED: SUFENTA 0.6MCG/ML BUPIVA 0.125 100 ML ONE (08:31)
--- NOTE | 2018-09-19 08:51 | Labor Progress Note ---
Labor Progress Note Labor Progress Note Date Seen by Provider: September 19, 2018 Time Seen by Provider: 08:25 Subjective: Pt denies complaints. Objective: Cervical exam: 5.5/70/-2 Consistency: soft Position: anterior Presentation: vertex heart tones: 150 beats per minute, moderate variability, reactive Tocometer: 2 ctx/10 minutes Assessment/Plan: Marisela Ballesteros is a 23 /Para / ,Gestational Age 40w0d here for IOL CEFM/TOCO AROM done with blood tinged fluid return Pitocin per protocol Anesthesia: plans for epidural Anticipate vaginal delivery. Vitals - Labs Labs Laboratory Tests 09/19/18 07:55: White Blood Count 11.6H, Red Blood Count 4.18L, Hemoglobin 12.6, Hematocrit 38, Mean Corpuscular Volume 90, Mean Corpuscular Hemoglobin 30, Mean Corpuscular Hemoglobin Concent 33, Red Cell Distribution Width 13.1, Platelet Count 226, Mean Platelet Volume 11.3H, Neutrophils (%) (Auto) 69, Lymphocytes (%) (Auto) 21 , Monocytes (%) (Auto) 7, Eosinophils (%) (Auto) 2, Basophils (%) (Auto) 0, Neutrophils # (Auto) 8.0H, Lymphocytes # (Auto) 2.5, Monocytes # (Auto) 0.8, Eosinophils # (Auto) 0.3, Basophils # (Auto) 0.0 ROBERTO FIGUEROA MD September 19, 2018 08:51
--- NOTE | 2018-09-19 08:52 | History & Physical-OB ---
OB - Chief Complaint & HPI Date/Time Date of Admission: Date of Admission: September 19, 2018 at 06:50 Date seen by a Provider: September 19, 2018 Time Seen by a Provider: 08:25 Chief Complaint/History OB-Reason for Admission/Chief: Induction of Labor Hx : 2 Hx Para: 0101 Expected Date of Delivery: September 26, 2018 Gestational Age in Weeks: 39 Gestational Age in Days: 0 Indication for induction: other (elective) History of Labs B+, antibody neg. RI. GC/chlamydia neg. HepB/RPR/HIV neg. 1 hour glucola nml. GBS neg. Allergies and Home Medications Allergies Coded Allergies: sertraline (Verified Allergy, Mild, 09/19/18) swelling vancomycin (Unverified Allergy, Mild, HIVES, 08/08/14) prednisone (Unverified Allergy, Unknown, 01/19/14) red dye (Verified Allergy, Unknown, 01/19/14) Home Medications Bhh030/Iron Fumarate/FA/Dss 1 Each Tablet, 1 EACH PO DAILY, (Reported) Patient Home Medication List Home Medication List Reviewed: Yes OB - History Hx of Present Care: Yes Ultrasounds: Normal mid trimester US Obstetrical Complications: None Medical Complications: None Information Induced Hypertension: No Maternal Gestational Diabetes: No Hemorrhage: No Obstetrical History Hx : 2 Hx Para: 1 Hx # Term Pregnancies: 0 Hx # Pregnancies: 1 Number of Living Children: 1 Hx Multiple Gestation: No Hx Ectopic : No Hx Stillbirth: No Hx Complication: No Hx Induced Hypertens: No Hx Maternal Gestational Diabet: No Hx Hemorrhage: No Delivery History Hx Dystocia: No Hx Forceps Assisted Delivery: No Hx Vacuum Extraction Assisted: No Hx Placenta Abnormality: No Hx Distress: No Hx Large For Gestational Age I: No Hx Small for Gestational Age I: No Hx Section: No Hx Vaginal Delivery Post C-Sec: No Hx Blood Disorders: No Adverse Rxn to Tranfusion: No Patient Past Medical History Past medical history 1. Depression 2. Anxiety 3. H/O suicide attempt/self injury Past surgical history 1. Tonsillectomy 2. Bilateral myringotomies Social History/Family History HIV/AIDS: No Recent Infectious Disease Expo: No Sexually Transmitted Disease: No Alcohol Use: Denies Use Recreational Drug Use: No Smoking Cessation: Former smoker Immunizations Hepatitis A: Yes Hepatitis B: Yes Tetanus Booster (TDap): Less than 5yrs Rubella: immune RPR/VDRL: Negative GBS Status: Negative HBsAG: Negative OB - Admission Exam Physical Exam HEENT: NCAT Abdomen: Gravid Extremities: Normal Cervical Dilatation: 5cm Effacement: 50% Station: -2 Heart Rate: 150's Accelerations: Accelerations Present Decelerations: No Decelerations Short Term Variability: Present Correction Variability: Average (6-25) Contractions on Admission: 6-10 Minutes Apart Nielsen Scoring Tool (Modified) Dilation (cm): >5cm (3) Effacement (%): 51-79% (2) Descent/Station: -2 (1) Cervix Consistency: Soft (2) Cervix Position: Anterior (2) Add 1 point for: Each previous vaginal delivery (1) Nielsen Score: 11 Labs Laboratory Tests Test 09/19/18 07:55 Range/Units White Blood Count 11.6 H 4.3-11.0 10^3/uL Red Blood Count 4.18 L 4.35-5.85 10^6/uL Hemoglobin 12.6 11.5-16.0 G/DL Hematocrit 38 35-52 % Mean Corpuscular Volume 90 80-99 FL Mean Corpuscular Hemoglobin 30 25-34 PG Mean Corpuscular Hemoglobin Concent 33 32-36 G/DL Red Cell Distribution Width 13.1 10.0-14.5 % Platelet Count 226 130-400 10^3/uL Mean Platelet Volume 11.3 H 7.4-10.4 FL Neutrophils (%) (Auto) 69 42-75 % Lymphocytes (%) (Auto) 21 12-44 % Monocytes (%) (Auto) 7 0-12 % Eosinophils (%) (Auto) 2 0-10 % Basophils (%) (Auto) 0 0-10 % Neutrophils # (Auto) 8.0 H 1.8-7.8 X 10^3 Lymphocytes # (Auto) 2.5 1.0-4.0 X 10^3 Monocytes # (Auto) 0.8 0.0-1.0 X 10^3 Eosinophils # (Auto) 0.3 0.0-0.3 10^3/uL Basophils # (Auto) 0.0 0.0-0.1 10^3/uL OB - Assessment/Plan/Diagnosis Assessment Assessment: induction of labor Admission Dx 39 weeks gestation Induction of labor Admission Status: Inpatient Order (span 2 midnights) Reason for Inpatient Admission: Labor, induction and course Plan Plan: Induction Induction Method: per Pitocin Protocol (AROM also done) Copy Copies To 1: ROBERTO FIGUEROA MD, BETHANY N MD September 19, 2018 08:52
--- NOTE | 2018-09-19 09:07 | NUR ---
Anesthesia notified of pt request for epidural
--- OUTSIDE RECORDS SUMMARY | 2018-09-19 09:16 | XMS REPORT ---
Author Author Migration, Doctor Organization [facility] Address Unknown Phone Unavailable Care Team Providers Care Mailmaster Name Role Phone Migration, Doctor Unavailable Unavailable PROBLEMS Type Condition ICD9-CM Code [id number] Code Onset Dates Condition Status SNOMED Code Problem Bipolar disorder, unspecified F31.9 Active [id number] ALLERGIES No Information ENCOUNTERS Encounter Location Date Diagnosis [facility] [id number] [place] [address] 40526- 7418 Aug, [place] [address] 92091- 3112 Aug, Third trimester Z34.93 and 35 weeks gestation of Z3A.35 [facility] [id number] [place] [address] 77045- 0070 Jul, [facility] [id number] [place] [address] 09873- 8962 Jul, Third trimester Z34.93 and 33 weeks gestation of Z3A.33 [facility] [id number] [place] [address] 16687- 7936 Jul, [facility] [id number] [place] [address] 46906- 6704 Jul, Encounter for immunization Z23 ; 32 weeks gestation of Z3A.32 and Third trimester Z34.93 [place] [id number] [place] [address] 43602- 6811 Jul, [place] [address] 00330- 0891 07 Jul, 2018 Fundal height low for dates in third trimester O26.843 ; Third trimester Z34.93 ; Non-recurrent acute suppurative otitis media of right ear without spontaneous rupture of tympanic membrane H66.001 and 29 weeks gestation of Z3A.29 [facility] [id number] [place] [address] 07343- 8474 25 Jun, 2018 Third trimester Z34.93 ; Non-recurrent acute suppurative otitis media of right ear without spontaneous rupture of tympanic membrane H66.001 ; 29 weeks gestation of Z3A.29 and Fundal height low for dates in third trimester O26.843 [place] [address] 73872- 1893 12 Jun, 2018 Second trimester Z34.92 ; 27 weeks gestation of Z3A.27 and Encounter for immunization Z23 [place] [address] 51987- 8974 May, Second trimester Z34.92 ; Normal in multigravida Z34.80 and Vomiting during O21.9 [place] [address] 26512- 0981 May, Normal in multigravida Z34.80 [place] [address] 42870- 6666 May, Vomiting during O21.9 [place] [address] 01646- 5915 16 May, 2018 Second trimester Z34.92 and 24 weeks gestation of Z3A.24 [place] [id number] [place] [address] 93799- 1074 May, [place] [address] 91773- 4494 Apr, Second trimester Z34.92 and 19 weeks gestation of Z3A.19 [place] [place] [id number] [place] [address] 10959- 3305 18 Apr, 2018 Second trimester Z34.92 and 19 weeks gestation of Z3A.19 [facility] [address] 30845 -9270 Apr, Acute nasopharyngitis J00 and Sore throat J02.9 [place] [id number] [place] [address] 01981- 6614 Apr, [place] [id number] [place] [address] 39442- 0088 Apr, [place] [address] 15739- 1366 Apr, [place] [address] 94891- 8232 Feb, First trimester Z34.91 and 10 weeks gestation of Z3A.10 [place] [address] 56976- 0360 Jan, [place] [id number] [place] [address] 13034- 7762 Jan, [place] [place] [id number] [place] [address] 08553- 2862 Jan, Normal in multigravida Z34.80 and 9 weeks gestation of Z3A.09 [facility] [address] 76850- 7380 Jan, [place] [id number] [place] [address] 75953- 9988 Jan, Encounter for test, result unknown Z32.00 [place] [id number] [place] [address] 35653- 4063 September, History of fainting spells of unknown cause Z91.89 [facility] [address] 33246- 0207 Aug, Yeast infection involving the vagina and surrounding area B37.3 ; Bipolar disorder, unspecified F31.9 and Trichomonas vaginalis infection A59.[address] 29742- 5053 Jun, Bipolar disorder, unspecified F31.9 [facility] [id number] [place] [address] 50313- 7505 Jun, Encounter for surveillance of injectable contraceptive Z30.42 and Bipolar disorder, unspecified F31.9 [facility] [id number] [place] [address] 90948- 4562 May, Encounter for Depo-Provera contraception Z30.42 [facility] [address] 09220 -6123 Apr, Syncope, unspecified syncope type R55 [place] [address] 10592- 4765 Mar, Bipolar disorder, unspecified F31.9 and High risk medication use Z79.899 [place] [address] 14975- 7375 Feb, [place] [address] 99376- 4908 Feb, Encounter for Depo-Provera contraception Z30.42 [place] [address] 97743- 5057 Nov, Encounter for Depo-Provera contraception Z30.42 [place] [id number] [place] [address] 20464- 3435 September, [place] [address] 27957- 6907 Aug, [place] [id number] [place] [address] 40859- 7297 Aug, Late period N92.6 ; STD exposure Z20.2 ; control counseling Z30.09 and Encounter for Depo-Provera contraception Z30.42 [facility] [id number] [place] [address] 25968 -7056 Jul, Body aches R52 ; Influenza A J10.1 ; Impacted cerumen of left ear H61.22 and Acute serous otitis media of left ear, recurrence not specified H65.02 [facility] [id number] [place] [address] 93676- 7744 May, [facility] [address] 08047- 4434 Apr, Encounter for female control Z30.019 ; Encounter for Depo-Provera contraception Z30.42 and Well woman exam Z01.419 [facility] [address] [id number] Feb, Dental examination Z01.20 [facility] [address] [id number] Feb, Dental caries K02.9 [facility] [address] [id number] Feb, Dental examination Z01.20 [facility] [address] 96615 -5687 Dec, Bilateral impacted cerumen H61.23 ; Dizziness R42 and Nausea R11.0 [facility] [address] 39400- 1253 Dec, Encounter for Depo-Provera contraception Z30.42 [facility] [id number] [place] [address] 67436- 9342 Oct, Bipolar affective disorder, currently depressed, moderate F31.32 [facility] [id number] [place] [address] 86771- 8652 September, Bipolar disorder, unspecified F31.9 [place] [address] 13552- 1422 September, Bipolar disorder, unspecified F31.9 [facility] [id number] [place] [address] 89747- 1314 September, Bipolar disorder, unspecified F31.9 [place] [id number] [place] [address] 61208- 9292 September, Encounter for Depo-Provera contraception Z30.42 [place] [address] 88471- 0254 Aug, Bipolar disorder, unspecified F31.9 [place] [address] 25273- 0918 Jun, Encounter for Depo-Provera contraception Z30.42 [place] [address] 17966- 6089 Apr, URI (upper respiratory infection) J06.9 [place] [address] 01175- 6408 Mar, Encounter for Depo-Provera contraception Z30.42 [place] [address] 71384- 6102 Mar, [place] [address] 05603- 2757 Mar, Generalized anxiety disorder F41.1 and Major depressive disorder, recurrent episode, moderate F33.1 [place] [id number] [place] [address] 39932- 8581 Jan, Esophageal reflux 530.81 ; Depression 311 and Anxiety 300.00 [place] [address] 42677- 9910 Dec, Depo-Provera contraceptive status V25.49 [place] [address] 57852- 5472 Dec, test negative V72.41 [place] [address] 23407- 7761 Oct, [place] [id number] [place] [address] 57094- 8155 Oct, [place] [address] 51010- 1604 September, [facility] [address] [id number] [place] [address]- 2908 September, [facility] [address] [id number], [place] [address]- 2068 September, [facility] [address] [facility] [id number] [place] [address]- 3224 September, [facility] [address] [facility] [id number], [place] [address]- 0919 September, [facility] [address] [id number] [place] [address]- 5850 September, [facility] [address] [facility] [id number] [place] [address]- 2935 September, [facility] [address] [id number] [address]- 5795 September, Other general counseling and advice for contraceptive management V25.09 [facility] [address] [id number] [place] [address]- 7551 September, [facility] [address] [facility] [id number] [place] [address]- 5359 September, [facility] [address] [facility] [id number], [place] [address]- 0501 September, [facility] [address] [facility] [id number] [place] [address]- 9189 September, [facility] [address] [id number], [place] [address]- 9888 Aug, [facility] [address] [id number] [place] [address]- 6318 Aug, [facility] [address] [facility] [id number] [place] [address]- 5702 14 Aug, 2014 [facility] [address] [facility] [id number] [place] [address]- 3794 Aug, [facility] [place] [facility] [address] [id number] [place] [address]- 1204 Jul, [facility] [place] [facility] [address] [id number] [place] [address]- 9023 27 Jul, 2014 [facility] [place] [facility] [address] [id number] [place] [address]- 1894 20 Jul, 2014 [facility] [place] [facility] [address] [id number] [place] [address]- 9037 19 Jul, 2014 [facility] [place] [facility] [address] [id number] [place] [address]- 9593 19 Jul, 2014 [facility] [place] [facility] [address] [id number] [place] [address]- 8756 18 Jul, 2014 [facility] [place] [facility] [address] [id number] [place] [address]- 0075 Jul, [facility] [place] [facility] [address] [id number] [place] [address]- 0216 16 Jun, 2014 [facility] [place] [facility] [address] [id number] [place] [address]- 3052 Jun, [facility] [place] [facility] [address] [id number] [place] [address]- 9161 Jun, [facility] [place] [facility] [address] [id number] [place] [address]- 6774 Jun, [facility] [place] [facility] [address] [id number], [place] [address]- 4903 Jun, [facility] [place] [facility] [address] [id number] [place] [address]- 4241 Jun, [facility] [place] [facility] [address] [id number] [place] [address]- 5383 May, [facility] [place] [facility] [address] [id number] [place] [address]- 2916 May, [facility] [place] [facility] [address] [id number] [place] [address]- 4456 15 Apr, 2014 [facility] [place] [facility] [address] [id number] [place] [address]- 8004 Apr, [facility] [place] [facility] [address] [id number] [place] 6328 Apr, [facility] [place] [facility] [address] [id number] [place] [address]- 4257 Apr, [facility] [place] [facility] [address] [id number] [place] [address]- 6538 Apr, [facility] [place] [facility] [address] [id number] [place] 6798 Apr, [facility] [place] [facility] [address] [id number] [place] [address]- 4966 Mar, [facility] [place] [facility] [address] [id number] [place] [address]- 4616 Mar, [facility] [place] [facility] [address] [id number] [place] [address]- 2893 Mar, [facility] [place] [facility] [address] [id number] [place] [address]- 7061 Mar, [facility] [place] [facility] [address] [id number] [place] [address]- 9616 Mar, [facility] [place] [facility] [address] [id number] [place] [address]- 1736 Feb, [facility] [place] [facility] [address] [id number] [place] [address]- 0580 Feb, [facility] [place] [facility] [address] [id number] [place] [address]- 8886 Feb, [facility] [place] [facility] [address] [id number] [place] [address]- 1572 Feb, [facility] [place] [facility] [address] [id number] [place] [address]- 9374 16 Feb, 2014 [facility] [place] [facility] [address] [id number] [place] [address]- 2249 Feb, 2013 [facility] [place] [facility] [address] [id number] [place] [address]- 1444 Feb, 2013 [facility] [place] [facility] [address] [id number] [place] [address]- 5120 Feb, 2013 [facility] [place] [facility] [address] [id number] [place] [address]- 1647 05 Jan, 2013 [facility] [place] [facility] [address] [id number] [place] [address]- 5335 05 Jan, 2013 [facility] [place] [facility] [address] [id number] [place] [address]- 9648 Jan, 2013 [facility] [place] [facility] [address] [id number] [place] [address]- 9972 Jan, 2013 [facility] [place] [facility] [address] [id number] [place] [address]- 0363 Jan, 2013 [facility] [place] [facility] [address] [id number] [place] [address]- 5101 Jan, 2013 [facility] [place] [facility] [address] [id number], [place] [address]- 1219 Jan, 2013 [facility] [place] [facility] [address] [id number], [place] [address]- 5323 Jan, 2013 [facility] [place] [facility] [address] [id number], [place] [address]- 0469 Dec, [facility] [place] [facility] [address] [id number] [place] [address]- 8733 Dec, [facility] [place] [facility] [address] [id number] [place] [address]- 5640 Dec, [facility] [place] [facility] [address] [id number], [place] [address]- 8646 Dec, [facility] [place] [facility] [address] [id number], [place] [address]- 6156 Dec, [facility] [place] [facility] [address] [id number] [place] [address]- 0696 Dec, [facility] [place] [facility] [address] [id number] [place] [address]- 9948 Dec, [facility] [place] [facility] [address] [id number] [place] [address]- 4274 Dec, [facility] [place] [facility] [address] [id number] [place] [address]- 7913 Dec, [facility] [place] [facility] [address] [id number] [place] [address]- 1798 Dec, [facility] [place] [facility] [address] [id number] [place] [address]- 5342 Dec, [facility] [place] [facility] [address] [id number] [place] [address]- 2953 Dec, [facility] [place] [facility] [address] [id number] [place] [address]- 8165 Dec, [facility] [place] [facility] [address] [id number] [place] [address]- 8327 Dec, [facility] [place] [facility] [address] [id number] [place] [address]- 9629 Dec, [facility] [place] [facility] [address] [id number] [place] [address]- 7375 Dec, [facility] [place] [facility] [address] [id number] [place] [address]- 1794 Dec, [facility] [place] [facility] [address] [id number] [place] [address]- 7604 Nov, [facility] [place] [facility] [address] [id number] [place] [address]- 1224 Nov, [facility] [place] [facility] [address] [id number] [place] [address]- 6792 Nov, [facility] [place] [facility] [address] [id number] [place] [address]- 0597 Nov, [facility] [place] [facility] [address] [id number] [place] [address]- 4912 Nov, [facility] [place] [facility] [address] [id number] [place] [address]- 8656 Nov, [facility] [place] [facility] [address] [id number] [place] [address]- 3317 Nov, [facility] [place] [facility] [address] [id number] [place] [address]- 1348 Nov, [facility] [place] [facility] [address] [id number] [place] [address]- 6178 Nov, [facility] [place] [facility] [address] [id number] [place] [address]- 0581 Oct, [facility] [place] [facility] [address] [id number] [place] [address]- 2117 Oct, [facility] [place] [facility] [address] [id number] [place] [address]- 4010 Oct, [facility] [place] [facility] [address] [id number] [place] [address]- 6962 Oct, [facility] [place] [facility] [address] [id number] [place] [address]- 7720 Oct, [facility] [place] [facility] [address] [id number] [place] [address]- 2703 Oct, [facility] [place] [facility] [address] [id number] [place] [address]- 4349 Oct, [facility] [place] [facility] [address] [id number] [place] [address]- 6133 Oct, [facility] [place] [facility] [address] [id number] [place] [address]- 1440 Oct, [facility] [place] [facility] [address] [id number] [place] [address]- 0534 Oct, [facility] [place] [facility] [address] [id number] [place] [address]- 8744 September, [facility] [place] [facility] [address] [id number] [place] [address]- 7410 September, [facility] [place] [facility] [address] [id number] [place] [address]- 5170 September, [facility] [place] [facility] [address] [id number] [place] [address]- 2411 September, [facility] [place] [facility] [address] [id number] [place] [address]- 8511 Aug, [facility] [place] [facility] [address] [id number] [place] [address]- 3927 Aug, [facility] [place] [facility] [address] [id number] [place] [address]- 7197 Aug, [facility] [place] [facility] [address] [id number] [place] [address]- 3116 Aug, [facility] [place] [facility] [address] [id number] [place] [address]- 0379 Aug, [facility] [place] [facility] [address] [id number] [place] [address]- 5185 Aug, [facility] [place] [facility] [address] [id number] [place] [address]- 4027 15 Aug, 2013 [facility] [place] [facility] [address] [id number] [place] [address]- 2092 Aug, [facility] [place] [facility] [address] [id number] [place] [address]- 6842 Aug, [facility] [place] [facility] [address] [id number] [place] [address]- 5725 Aug, [facility] [place] [facility] [address] [id number] [place] [address]- 1739 Aug, [facility] [place] [facility] [address] [id number] [place] [address]- 4739 24 Jul, 2013 [facility] [place] [facility] [address] [id number] [place] [address]- 2917 24 Jul, 2013 [facility] [place] [facility] [address] [id number] [place] [address]- 5206 Jul, [facility] [place] [facility] [address] [id number] [place] [address]- 2505 Jul, [facility] [place] [facility] [address] [id number] [place] [address] 254 Jul, [facility] [place] [facility] [address] [id number] [place] [address]- 2925 Jul, [facility] [place] [facility] [address] [id number] [place] [address]- 5173 28 Jun, 2013 [facility] [place] [facility] [address] [facility] [id number] [place] [address]- 4537 27 Jun, 2013 [facility] [place] [facility] [address] [facility]] [id number] [place] [address]- 0070 26 Jun, 2013 [facility] [place] [facility] [address] [facility]] [id number] [place] [address]- 2717 25 Jun, 2013 [facility] [place] [facility] [address] [facility] [id number] [place] [address]- 2761 24 Jun, 2013 [facility] [place] [facility] [address] [facility][NOTE 3] [id number] [place] [address] 24 Jun, 2013 [facility] [place] [facility] [address] [id number] [place] [address] 24 Jun, 2013 [facility] [place] [facility] [address] [id number] [place] [address] 24 Jun, 2013 [facility] [place] [facility] [address] [facility][NOTE 3] [id number] [place] [address] 13 Jun, 2013 [facility] [place] [facility] [address] [facility][NOTE 3] [id number] [place] [address] Jun, 2013 [facility] [place] [facility] [address] [id number] [place] [address] Jun, [facility] [place] [facility] [address] [id number] [place] [address] Jun, 2013 [facility] [place] [facility] [address] [facility][NOTE 3] [id number] [place] [address] Jun, 2013 [facility] [place] [facility] [address] [id number] [place] [address] Jun, 2013 [facility] [place] [facility] [address] [id number] [place] [address] Jun, 2013 [facility] [place] [facility] [address] [facility][NOTE 3] [id number] [place] [address] Jun, [facility] [place] [facility] [address] [facility][NOTE 3] [id number] [place] [address] Jun, [facility] [place] [facility] [address] [facility][NOTE 3] [id number] [place] [address] Jun, [facility] [place] [facility] [address] [facility][NOTE 3] [id number] [place] [address] Jun, [facility] [place] [facility] [address] [facility][NOTE 3] [id number] [place] [address] Jun, [facility] [place] [facility] [address] [facility][NOTE 3] [id number] [place] [address] Jun, [facility] [place] [facility] [address] [facility][NOTE 3] [id number] [place] [address] Jun, [facility] [place] [facility] [address] [facility][NOTE 3] [id number] [place] [address] May, [facility] [place] [facility] [address] [facility][NOTE 3] [id number] [place] [address] May, [facility] [place] [facility] [address] [facility][NOTE 3] [id number] [place] [address] 284[address] May, [facility] [place] [facility] [address] [id number] [place] [address] May, [facility] [place] [facility] [address] [id number] [place] [address]- [address] May, [facility] [place] [facility] [address] [id number] [place] [address]448 May, [facility] [place] [facility] [address] [id number] [place] [address]- [address] May, [facility] [address] [id number] [place] [address] May, [facility] [place] [facility] [address] [id number] [place] [address]- [address] May, [facility] [address] [id number] [place] [address] May, [facility] [address] [id number] [place] [address]- [address] May, [facility] [place] [facility] [address] [id number] [place] [address] May, [facility] [place] [facility] [address] [id number] [place] [address]- [address] May, [facility] [place] [facility] [address] [id number] [place] [address] May, [facility] [place] [facility] [address] [id number], [place] [address] Apr, [facility] [place] [facility] [address] [id number] [place] [address] Apr, [facility] [place] [facility] [address] [id number] [place] [address] Apr, [facility] [place] [facility] [address] [id number] [place] [address] Apr, [facility] [place] [facility] [address] [id number], [place] [address] Apr, [facility] [place] [facility] [address] [id number] [place] [address] Apr, [facility] [place] [facility] [address] [id number], [place] [address] Apr, [facility] [place] [facility] [address] [id number] [place] [address] Apr, [facility] [place] [facility] [address] [id number], [place] [address] Mar, [facility] [facility] [address] [id number] [place] [address] Mar, [facility] [facility] [address] [id number], [place] [address] Mar, [facility] [facility] [address] [id number], [place] [address] Mar, [facility] [facility] [address] [id number], [place] [address] Feb, [facility] [address] [id number], [place] [address] Feb, [facility] [address] [id number], [place] [address] Feb, [facility] [address] [id number], [place] [address] Feb, [facility] [address] [id number], [place] [address] Feb, [facility] [address] [id number][place] [address] Feb, [facility] [facility] [address] [id number] [address] Feb, [facility] [address] [facility]NOTE 3] [id number][place] [address] Feb, [facility] [address] [id number] [place] [address] 30 Jan, 2013 [facility] [address] [id number] [place] [address] 24 Oct, 2012 [facility] [facility] [address] [id number] [place] [address] September, [facility] [address] [id number] [place] [address] Jun, [facility] [address] [id number] [place] [address] Jun, [facility] [facility] [address] [id number] [place] [address] Jun, [facility] [address] [id number] [place] [address] Jun, [facility] [address] [id number] [place] [address] May, [facility] [address] [id number] [place] [address] Apr, [facility] [address] [id number] [place] [address] Apr, [facility] [address] [id number] [place] [address] Apr, [facility] [address] [id number] [place] [address] Apr, [facility] [address] [id number] [place] [address] Mar, [facility] [address] [id number] [place] [address] 16 Mar, 2012 [facility] [address] [id number] [place] [address] 07 Jan, 2012 [facility] [facility] [address] [id number] [place] [address] 14 Dec, 2011 [facility] [address] [id number] [place] [address] 14 Dec, 2011 [facility] [address] [id number] [place] [address] Dec, [facility] [address] [id number] [place] [address] Dec, [facility] [address] [id number] [place] [address] Nov, [facility] [address] [id number] [place] [address] Nov, [facility] [address] [id number] [place] [address] Nov, [facility] [address] [id number] [place] [address] 2887 Nov, [facility] [address] [id number] [place] [address] Aug, [facility] [address] [id number] [place] [address] 359[address] Aug, [facility] [address] [id number] [place] [address] Jul, [facility] [address] [id number] [place] [address] Jul, [facility] [address] [id number] [place] [address] Jul, [facility] [address] [id number] [place] [address] Jul, [facility] [address] [id number] [place] [address] 47[address] Jun, [facility] [address] [id number] [place] [address] Jun, [facility] [address] [id number] [place] [address]246 14 Jun, 2011 [facility] [address] [id number] [place] [address] 13 Jun, 2011 [facility] [address] [id number] [place] [address] 2546 09 Jun, 2011 [facility] [address] [id number] [place] [address] 2546 08 Jun, 2011 [facility] [address] [id number] [place] [address] 2541 04 Jun, 2011 [facility] [address] [id number] [place] [address]- [address]25 02 Jun, 2011 [facility] [address] [id number] [place] [address]- 2425 Jun, [facility] [address] [id number] [place] [address] 6[address] May, [facility] [address] [id number] [place] [address] May, [facility] [address] [id number] [place] [address] 8475 May, [facility] [address] [id number] [place] [address]- 1277 May, [facility] [address] [id number] [place] [address] May, [facility] [address] [id number] [place] [address] 1311 Mar, [facility] [address] [id number] [place] [address]- 2546 Mar, [facility] [address] [id number] [place] [address]118 15 Mar, 2011 [facility] [address] [id number] [place] [address] Mar, [facility] [address] [id number] [place] [address] Mar, [facility] [address] [id number] [place] [address]757 Feb, [facility] [address] [id number] [place] [address] 7027 Feb, [facility] [address] [id number] [place] [address]201 Dec, [facility] [address] [id number] [place] [address]- 9275 30 Apr, 2010 [facility] [address] [id number] [place] [address]- [address]463 Apr, [facility] [address] [id number] [place] [address]- 6695 Apr, [facility] [address] [id number] [place] [address]- 2408 Feb, [facility] [address] [id number] [place] [address]- 2984 Feb, [facility] [address] [id number] [place] [address]- 0301 Jul, [facility] [address] [id number], [place] [address]149 15 Jun, 2009 [facility] [address] [id number], [place] [address] May, [facility] [address] [id number] [place] [address] Apr, [facility] [address] [id number] [place] [address] Apr, [facility] [address] [id number] [place] [address]- 5466 Apr, [facility] [address] [id number], [place] [address] 25 Mar, 2009 [facility] [address] [id number], [place] [address] 11 Jul, 2008 [facility] [id number], [place] [address]- [address] 16 Jun, 2008 [facility] [id number], [place] [address] 15 Jan, 2008 [facility] [id number], [place] [address] 10 Oct, 2007 [facility] [id number], [place] [address] September, [facility] [id number], [place] [address] 11 Nov, 2006 [facility] [id number], [place] [address]- [address] 16 Sep, 2005 [facility] [id number], [place] [address]- [address] 17 Dec, 2003 [facility] [id number], [place] [address]- 2607 10 Mar, 2003 IMMUNIZATIONS No Known Immunizations SOCIAL HISTORY Never Assessed REASON FOR VISIT EMR[place] [place] PLAN OF CARE VITAL SIGNS MEDICATIONS Unknown [...]
--- OUTSIDE RECORDS SUMMARY | 2018-09-19 09:17 | XMS REPORT ---
Author Author Migration, Doctor Organization [facility] Address Unknown Phone Unavailable Care Team Providers Care Rocket Motor Tester Name Role Phone Migration, Doctor Unavailable Unavailable PROBLEMS Type Condition ICD9-CM Code SHA91-XY Code Onset Dates Condition Status SNOMED Code Problem Bipolar disorder, unspecified F31.9 Active [id number] ALLERGIES No Information ENCOUNTERS Encounter Location Date Diagnosis [place] [id number] [place] [address] 18817- 0948 Aug, [place] [id number] [place] [address] 10399- 8293 Aug, [place] [id number] [place] [address] 92404- 6324 Jul, [place] [id number] [place] [address] 25913- 0453 Jul, [place] [id number] [place] [address] 69684- 8518 Jul, Encounter for immunization Z23 ; 32 weeks gestation of Z3A.32 and Third trimester Z34.93 [place] [id number] [place] [address] 21436- 0046 Jul, [place] [id number] [place] [address] 86033- 8683 Jul, Fundal height low for dates in third trimester O26.843 ; Third trimester Z34.93 ; Non-recurrent acute suppurative otitis media of right ear without spontaneous rupture of tympanic membrane H66.001 and 29 weeks gestation of Z3A.29 [place] [id number] [place] [address] 23409- 7961 Jun, Third trimester Z34.93 ; Non-recurrent acute suppurative otitis media of right ear without spontaneous rupture of tympanic membrane H66.001 ; 29 weeks gestation of Z3A.29 and Fundal height low for dates in third trimester O26.843 [place] [address] 38921- 9939 Jun, Second trimester Z34.92 ; 27 weeks gestation of Z3A.27 and Encounter for immunization Z23 [place] [address] 15660- 6908 May, Second trimester Z34.92 ; Normal in multigravida Z34.80 and Vomiting during O21.9 [place] [address] 22114- 2957 May, Normal in multigravida Z34.80 [place] [address] 68612- 5521 May, Vomiting during O21.9 [place] [address] 37089- 1971 May, Second trimester Z34.92 and 24 weeks gestation of Z3A.24 [place] [address] 66269- 0416 May, [place] [address] 59698- 5167 Apr, Second trimester Z34.92 and 19 weeks gestation of Z3A.19 [place] [address] 65820- 9089 Apr, Second trimester Z34.92 and 19 weeks gestation of Z3A.19 [facility] [address] 10330 -1163 Apr, Acute nasopharyngitis J00 and Sore throat J02.9 [place] [address] 34437- 3510 Apr, [place] [address] [id number] [address] 5626 Apr, [facility] [id number] [place] [address] 72586- 1625 Apr, [facility] [id number] [place] [address] 86286- 4584 16 Feb, 2018 First trimester Z34.91 and 10 weeks gestation of Z3A.10 [place] [address] 48691- 9701 Jan, [place] [id number] [place] [address] 97979- 9159 Jan, [place] [id number] [place] [address] 47764- 6718 Jan, Normal in multigravida Z34.80 and 9 weeks gestation of Z3A.09 [place] [address] 26576- 9716 Jan, [place] [id number] [place] [address] 02187- 5856 05 Jan, 2018 Encounter for test, result unknown Z32.00 [place] [id number] [place] [address] 70942- 0800 September, History of fainting spells of unknown cause Z91.89 [place] [id number] [place] [address] 28208- 2433 Aug, Yeast infection involving the vagina and surrounding area B37.3 ; Bipolar disorder, unspecified F31.9 and Trichomonas vaginalis infection A59.9 [place] [id number] [place] [address] 19937- 4750 Jun, Bipolar disorder, unspecified F31.9 [place] [id number] [place] [address] 63457- 7372 Jun, Encounter for surveillance of injectable contraceptive Z30.42 and Bipolar disorder, unspecified F31.9 [place] [id number] [place] [address] 00702- 3957 May, Encounter for Depo-Provera contraception Z30.42 [facility] [id number] [place] [address] 86064 -3267 Apr, Syncope, unspecified syncope type R55 [place] [id number] [place] [address] 46223- 8378 Mar, Bipolar disorder, unspecified F31.9 and High risk medication use Z79.899 [place] [id number] [place] [address] 14622- 7954 Feb, [place] [id number] [place] [address] 78609- 5435 Feb, Encounter for Depo-Provera contraception Z30.42 [place] [id number] [place] [address] 69117- 6381 Nov, Encounter for Depo-Provera contraception Z30.42 [place] [id number] [place] [address] 88071- 3224 September, [place] [id number] [place] [address] 81198- 5502 Aug, [place] [id number] [place] [address] 21804- 1132 Aug, Late period N92.6 ; STD exposure Z20.2 ; control counseling Z30.09 and Encounter for Depo-Provera contraception Z30.42 [facility] [id number] [place] [address] 49734 -0337 Jul, Body aches R52 ; Influenza A J10.1 ; Impacted cerumen of left ear H61.22 and Acute serous otitis media of left ear, recurrence not specified H65.02 [facility] [id number] [place] [address] 03562- 9102 May, [place] [id number] [place] [address] 66529- 9421 Apr, Encounter for female control Z30.019 ; Encounter for Depo-Provera contraception Z30.42 and Well woman exam Z01.419 [facility] [id number] [place] [address] [id number] Feb, Dental examination Z01.20 [facility] [id number] [place] [address] [id number] Feb, Dental caries K02.9 [facility] [id number] [place] [address] [id number] Feb, Dental examination Z01.20 [facility] [id number] [place] [address] 30066 -6287 Dec, Bilateral impacted cerumen H61.23 ; Dizziness R42 and Nausea R11.0 [facility] [id number] [place] [address] 00665- 6305 Dec, Encounter for Depo-Provera contraception Z30.42 [facility] [id number] [place] [address] 53903- 8411 Oct, Bipolar affective disorder, currently depressed, moderate F31.32 [facility] [id number] [place] [address] 26745- 3249 September, Bipolar disorder, unspecified F31.9 [facility] [id number] [place] [address] 13538- 9012 September, Bipolar disorder, unspecified F31.9 [place] [id number] [place] [address] 25995- 3960 September, Bipolar disorder, unspecified F31.9 [place] [id number] [place] [address] 60641- 0194 September, Encounter for Depo-Provera contraception Z30.42 [facility] [id number] [place] [address] 97470- 1915 Aug, Bipolar disorder, unspecified F31.9 [facility] [id number] [place] [address] 14144- 1674 Jun, Encounter for Depo-Provera contraception Z30.42 [facility] [id number] [place] [address] 37512- 5161 Apr, URI (upper respiratory infection) J06.9 [facility] [address] 47565- 1465 Mar, Encounter for Depo-Provera contraception Z30.42 [facility] [address] 74754- 8441 Mar, [place] [address] 30385- 0773 Mar, Generalized anxiety disorder F41.1 and Major depressive disorder, recurrent episode, moderate F33.1 [place] [address] 02454- 9973 Jan, Esophageal reflux 530.81 ; Depression 311 and Anxiety 300.00 [place] [address] 18309- 1155 Dec, Depo-Provera contraceptive status V25.49 [place] [address] 22378- 8456 Dec, test negative V72.41 [place] [id number] [place] [address] 93519- 5030 Oct, [place] [id number] [place] [address] 98905- 9944 Oct, [place] [address] 25865- 8503 September, [facility] [address] 58033- 6485 September, [facility] [address] 95761- 4154 September, [facility] [address] [id number] [place] [address]- 6090 September, [facility] [address] [id number] [place] 1970 September, [facility] [address] [id number] [place] [address]- 2902 September, [facility] [address] [id number] [place] [address]- 7627 September, [facility] [address] [id number] [place] [address]- 5518 September, Other general counseling and advice for contraceptive management V25.09 [facility] [address] [id number] [place] [address]- 5105 September, [facility] [address] [facility] [id number] [place] [address]- 1971 September, [facility] [address] [id number] [place] [address]- 9342 September, [facility] [address] [facility] [id number] [place] [address]- 6809 September, [facility] [address] [facility] [id number] [place] [address]- 9372 29 Aug, 2014 [facility] [address] [id number] [place] [address]- 2946 28 Aug, 2014 [facility] [address] [id number] [place] [address]- 9482 14 Aug, 2014 [facility] [address] [id number] [place] [address]- 5513 Aug, [facility] [address] [id number] [place] [address]- 9785 Jul, [facility] [address] [id number] [place] [address]- 1791 Jul, [facility] [place] [facility] [address] [id number] [place] [address]- 7056 20 Jul, 2014 [facility] [place] [facility] [address] [id number] [place] [address]- 5452 19 Jul, 2014 [facility] [place] [facility] [address] [id number] [place] [address]- 8541 19 Jul, 2014 [facility] [place] [facility] [address] [id number] [place] [address]- 2900 18 Jul, 2014 [facility] [place] [facility] [address] [id number] [place] [address]- 6996 18 Jul, 2014 [facility] [place] [facility] [address] [id number] [place] [address]- 3536 16 Jun, 2014 [facility] [place] [facility] [address] [id number] [place] [address]- 1571 16 Jun, 2014 [facility] [place] [facility] [address] [id number] [place] [address]- 8990 Jun, 2014 [facility] [place] [facility] [address] [id number] [place] [address]- 7121 Jun, [facility] [place] [facility] [address] [facility] [id number] [place] [address]- 1572 02 Jun, 2014 [facility] [place] [facility] [address] [id number] [place] [address]- 4550 Jun, [facility] [place] [facility] [address] [id number] [place] [address]- 5582 May, [facility] [place] [facility] [address] [id number] [place] [address]- 8991 May, [facility] [place] [facility] [address] [facility] [id number] [place] [address]- 3426 Apr, [facility] [place] [facility] [address] [id number] [place] 9077 Apr, [facility] [place] [facility] [address] [id number] [place] [address]- 5146 Apr, [facility] [place] [facility] [address] [id number] [place] [address]- 3599 Apr, [facility] [place] [facility] [address] [id number] [place] 0404 Apr, [facility] [place] [facility] [address] [id number] [place] [address]- 8545 Apr, [facility] [place] [facility] [address] [id number] [place] [address]- 2002 Mar, [facility] [place] [facility] [address] [id number] [place] [address]- 8250 Mar, [facility] [place] [facility] [address] [id number] [place] [address]- 3428 Mar, [facility] [place] [facility] [address] [id number] [place] [address]- 6852 Mar, [facility] [place] [facility] [address] [id number] [place] [address]- 3346 Mar, [facility] [place] [facility] [address] [id number] [place] [address]- 2036 Feb, [facility] [place] [facility] [address] [id number] [place] [address]- 0038 Feb, [facility] [place] [facility] [address] [id number] [place] [address]- 1221 Feb, [facility] [place] [facility] [address] [id number] [place] [address]- 8820 Feb, [facility] [place] [facility] [address] [id number] [place] [address]- 7668 Feb, [facility] [place] [facility] [address] [id number] [place] [address]- 5052 Feb, [facility] [place] [facility] [address] [id number] [place] [address]- 0569 Feb, [facility] [place] [facility] [address] [id number] [place] [address]- 6851 Feb, [facility] [place] [facility] [address] [id number] [place] [address]- 2684 Jan, 2013 [facility] [place] [facility] [address] [id number] [place] [address]- 8929 Jan, 2013 [facility] [place] [facility] [address] [id number] [place] [address]- 2256 Jan, 2013 [facility] [place] [facility] [address] [id number] [place] [address]- 6202 Jan, 2013 [facility] [place] [facility] [address] [id number] [place] [address]- 0785 Jan, 2013 [facility] [place] [facility] [address] [id number] [place] [address]- 7126 Jan, 2013 [facility] [place] [facility] [address] [id number] [place] [address]- 2774 Jan, 2013 [facility] [place] [facility] [address] [id number] [place] [address]- 6356 Jan, [facility] [place] [facility] [address] [id number] [place] [address]- 4342 Dec, [facility] [place] [facility] [address] [id number] [place] [address]- 3386 Dec, [facility] [place] [facility] [address] [id number] [address]- 6806 Dec, [facility] [place] [facility] [address] [id number] [place] [address]- 2748 Dec, [facility] [place] [facility] [address] [id number] [place] [address]- 3778 Dec, [facility] [place] [facility] [address] [id number] [place] [address]- 8376 Dec, [facility] [place] [facility] [address] [id number] [address]- 4133 Dec, [facility] [place] [facility] [address] [id number] [place] [address]- 9926 Dec, [facility] [place] [facility] [address] [id number] [place] [address]- 7058 Dec, [facility] [place] [facility] [address] [id number] [place] [address]- 9593 Dec, [facility] [place] [facility] [address] [id number] [place] [address]- 6052 Dec, [facility] [place] [facility] [address] [id number] [place] [address]- 7896 Dec, [facility] [place] [facility] [address] [id number] [place] [address]- 1005 Dec, [facility] [place] [facility] [address] [id number] [place] [address]- 9886 Dec, [facility] [place] [facility] [address] [id number] [place] [address]- 2955 Dec, [facility] [place] [facility] [address] [id number] [place] [address]- 1452 Dec, [facility] [place] [facility] [address] [id number] [place] [address]- 1147 Dec, [facility] [place] [facility] [address] [id number] [place] [address]- 9612 Nov, [facility] [place] [facility] [address] [id number] [place] [address]- 4897 Nov, [facility] [place] [facility] [address] [id number] [place] [address]- 8250 Nov, [facility] [place] [facility] [address] [id number] [place] [address]- 9440 Nov, [facility] [place] [facility] [address] [id number] [place] [address]- 3149 Nov, [facility] [place] [facility] [address] [id number] [place] [address]- 1900 Nov, [facility] [place] [facility] [address] [id number] [place] [address]- 4741 Nov, [facility] [place] [facility] [address] [id number] [place] [address]- 6332 Nov, [facility] [place] [facility] [address] [id number] [place] [address]- 3972 Nov, [facility] [place] [facility] [address] [id number] [place] [address]- 4266 Oct, [facility] [place] [facility] [address] [id number] [place] [address]- 4901 Oct, [facility] [place] [facility] [address] [id number] [place] [address]- 4296 Oct, [facility] [place] [facility] [address] [id number] [place] [address]- 3526 Oct, [facility] [place] [facility] [address] [id number] [place] [address]- 1171 Oct, [facility] [place] [facility] [address] [id number] [place] [address]- 5864 Oct, [facility] [place] [facility] [address] [id number] [place] [address]- 3812 Oct, [facility] [place] [facility] [address] [id number] [place] [address]- 1981 Oct, [facility] [place] [facility] [address] [id number] [place] [address]- 9951 Oct, [facility] [place] [facility] [address] [id number] [place] [address]- 1791 Oct, [facility] [place] [facility] [address] [id number] [place] [address]- 4642 September, [facility] [place] [facility] [address] [id number] [place] [address]- 2177 September, [facility] [address] [id number] [place] [address]- 4584 September, [facility] [place] [facility] [address] [id number] [place] [address]- 2082 September, [facility] [place] [facility] [address] [id number] [place] [address]- 5947 Aug, [facility] [place] [facility] [address] [id number] [place] [address]- 6201 Aug, [facility] [place] [facility] [address] [id number] [place] [address]- 0780 Aug, [facility] [place] [facility] [address] [id number] [place] [address]- 8232 Aug, [facility] [place] [facility] [address] [id number] [place] [address]- 2803 Aug, [facility] [place] [facility] [address] [id number] [place] [address]- 6557 Aug, [facility] [place] [facility] [address] [id number] [place] [address]- 8254 Aug, [facility] [place] [facility] [address] [id number] [place] [address]- 8653 Aug, [facility] [place] [facility] [address] [id number] [place] [address]- 7965 Aug, [facility] [place] [facility] [address] [id number] [place] [address]- 3026 Aug, [facility] [place] [facility] [address] [id number] [place] [address]- 9157 Aug, [facility] [place] [facility] [address] [id number] [place] [address]- 0921 Jul, [facility] [place] [facility] [address] [id number] [place] [address]- 8454 Jul, [facility] [place] [facility] [address] [id number] [place] [address]- 8522 10 Jul, 2013 [facility] [place] [facility] [address] [id number] [place] [address]- 3920 10 Jul, 2013 [facility] [place] [facility] [address] [id number] [place] [address]- 2114 Jul, [facility] [place] [facility] [address] [facility] [id number] [place] [address]- 2272 Jul, [facility] [place] [facility] [address] [id number] [place] [address]- 3619 Jun, [facility] [place] [facility] [address] [id number] [place] [address] Jun, [facility] [place] [facility] [address] [id number] [place] [address] Jun, [facility] [place] [facility] [address] [facility] [id number] [place] [address] Jun, [facility] [place] [facility] [address] [id number] [place] [address] 24 Jun, 2013 [facility] [place] [facility] [address] [facility] [id number] [place] [address] 24 Jun, 2013 [facility] [place] [facility] [address] [facility] [id number] [place] [address] 24 Jun, 2013 [facility] [place] [facility] [address] [facility] [id number] [place] [address] 24 Jun, 2013 [facility] [place] [facility] [address] [id number] [place] [address] 13 Jun, 2013 [facility] [place] [facility] [address] [id number] [place] [address] 13 Jun, 2013 [facility] [place] [facility] [address] [facility] [id number] [place] [address]- [address] 12 Jun, 2013 [facility] [place] [facility] [address] [facility] [id number] [place] [address] Jun, [facility] [place] [facility] [address] [id number] [place] [address] Jun, [facility] [place] [facility] [address] [id number] [place] [address] Jun, 2013 [facility] [place] [facility] [address] [facility] [id number] [place] [address]- [address] Jun, 2013 [facility] [place] [facility] [address] [id number] [place] [address] Jun, 2013 [facility] [place] [facility] [address] [id number] [place] [address] Jun, [facility] [place] [facility] [address] [facility] [id number] [place] [address]- [address] Jun, [facility] [place] [facility] [address] [facility] [id number] [place] [address] Jun, 2013 [facility] [place] [facility] [address] [facility] [id number] [place] [address] Jun, [facility] [place] [facility] [address] [facility] [id number] [place] [address]- [address] Jun, [facility] [place] [facility] [address] [facility] [id number] [place] [address] Jun, [facility] [place] [facility] [address] [facility] [id number] [place] [address] May, [facility] [place] [facility] [address] [facility] [id number] [place] [address]- [address]78 May, [facility] [place] [facility] [address] [id number] [place] [address] May, [facility] [place] [facility] [address] [facility] [id number] [place] [address]- [address] May, [facility] [place] [facility] [address] [facility] [id number] [address] May, [facility] [place] [facility] [address] [id number] [place] [address]26 May, [facility] [address] [id number] [place] [address] May, [facility] [address] [id number] [place] [address] May, [facility] [address] [id number] [place] [address] May, [facility] [address] [id number] [place] [address]- [address]14 May, [facility] [address] [id number] [place] [address] May, [facility] [address] [id number] [place] [address] May, [facility] [address] [id number] [place] [address]- [address] May, [facility] [address] [id number] [place] [address] May, [facility] [address] [id number] [place] [address]- [address] Apr, [facility] [address] [id number] [place] [address] Apr, [facility] [address] [id number] [place] [address]- [address] Apr, [facility] [facility] [address] [id number] [place] [address] Apr, [facility] [place] [facility] [address] [id number] [place] [address] Apr, [facility] [address] [id number] [place] [address] Apr, [facility] [place] [facility] [address] [id number] [place] [address] Apr, [facility] [place] [facility] [address] [id number] [place] [address] Apr, [facility] [address] [id number] [address] Mar, [facility] [place] [facility] [address] [id number] [place] [address] 2542 Mar, [facility] [place] [address] [id number] [place] [address] Mar, [facility] [address] [id number] [place] [address] Mar, [facility] [place] [address] [id number] [place] [address] 1139 Feb, [facility] [address] [id number] [place] [address] Feb, [facility] [address] [id number] [place] [address] Feb, [facility] [facility] [address] [id number] [place] [address] Feb, [facility] [address] [id number] [place] [address] Feb, [facility] [address] [id number] [place] [address] Feb, [facility] [address] [id number] [place] [address] Feb, [facility] [address] [id number] [place] [address] Feb, [facility] [address] [id number] [place] [address] 74[address] Jan, [facility] [address] [id number] [place] [address] Oct, [facility] [address] [id number] [place] [address]99 September, [facility] [address] [id number] [place] [address] Jun, [facility] [address] [id number] [place] [address]16 Jun, [facility] [address] [id number] [place] [address]- 4946 Jun, [facility] [address] [id number] [place] [address] 2546 Jun, [facility] [address] [id number] [place] [address] May, [facility] [address] [id number] [place] [address] Apr, [facility] [address] [id number] [place] [address]- 67[address] Apr, [facility] [address] [id number] [place] [address]- 3568 Apr, [facility] [address] [id number] [place] [address]- [address] Apr, [facility] [address] [id number] [place] [address]- 2402 Mar, [facility] [address] [id number] [place] [address]70 16 Mar, 2012 [facility] [address] [id number] [place] [address] 07 Jan, 2012 [facility] [address] [id number] [place] [address]- [address]36 14 Dec, 2011 [facility] [address] [id number] [place] [address] 2546 14 Dec, 2011 [facility] [address] [id number] [place] [address] Dec, [facility] [address] [id number] [place] [address]- [address] Dec, [facility] [address] [id number] [place] [address]- 9512 Nov, [facility] [address] [id number] [place] [address]- 3862 Nov, [facility] [address] [id number] [place] [address]- 3086 Nov, [facility] [address] [id number] [place] [address]959 Nov, [facility] [address] [id number] [place] [address] Aug, [facility] [address] [id number] [place] [address]- 9383 Aug, [facility] [address] [id number] [place] [address]- 3695 Jul, [facility] [address] [id number] [place] [address]- 2470 Jul, [facility] [address] [id number] [place] [address]- 2299 Jul, [facility] [address] [id number] [place] [address]- 4499 Jul, [facility] [address] [id number] [place] [address]- 5056 Jun, [facility] [address] [id number] [place] [address]- 6388 Jun, [facility] [address] [id number] [place] [address]- 3099 14 Jun, 2011 [facility] [address] [id number] [place] [address]- 8932 Jun, [facility] [address] [id number] [place] [address]- 6466 09 Jun, 2011 [facility] [address] [id number] [place] [address]- 3780 08 Jun, 2011 [facility] [address] [id number] [place] [address]- 2546 04 Jun, 2011 [facility] [address] [id number] [place] [address]- 7566 Jun, [facility] [address] [id number] [place] [address] 2545 Jun, [facility] [address] [id number] [place] [address]- 7465 May, [facility] [address] [id number] [place] [address]- 3898 May, [facility] [address] [id number] [place] [address]- 7223 May, [facility] [address] [id number] [place] [address]- 6242 May, [facility] [address] [facility] [id number] [place] [address]- 4932 May, [facility] [address] [id number] [place] [address]- 0769 Mar, [facility] [address] [id number] [place] [address]- 8905 Mar, [facility] [address] [id number] [place] [address]- 2544 Mar, [facility] [address] [id number] [place] [address] 254 Mar, [facility] [address] [id number] [place] [address]- 2544 Mar, [facility] [address] [id number] [place] [address]- 4437 31 Feb, 2011 [facility] [address] [id number] [place] [address]- 9963 19 Feb, 2011 [facility] [address] [id number] [place] [address]- 1246 10 Dec, 2010 [facility] [address] [facility] [id number] [place] [address]- 7486 30 Apr, 2010 [facility] [address] [id number] [place] [address]- 1601 07 Apr, 2010 [facility] [address] [id number] [place] [address]- 3528 Apr, [facility] [address] [id number] [place] [address]- 5470 29 Feb, 2010 [facility] [address] [id number] [place] [address]- 1660 Feb, [facility] [address] [id number] [place] [address]- 6[address] Jul, [facility] [address] [id number] [place] [address]- 9080 15 Jun, 2009 [facility] [address] [id number] [place] [address]- 2015 May, [facility] [address] [id number] [place] [address]- 8[address] 29 Apr, 2009 [facility] [address] [id number] [place] [address]- 5326 Apr, [facility] [address] [id number] [place] [address]- 0716 Apr, [facility] [address] [facility] [id number] [place] [address]- 2000 Mar, [facility] [address] [facility] [id number] [place] [address]- 3576 Jul, [facility] [address] [id number] [address]- [address]46 16 Jun, 2008 [facility] [id number] [address] 2546 15 Jan, 2008 [facility] [id number] [address]- [address]46 10 Oct, 2007 [facility] [id number] [address]- [address] 13 Sep, 2007 [facility] [id number] [address]- [address]46 11 Nov, 2006 [facility] [id number] [address]- 2876 16 Sep, 2005 [facility] [id number] [address]- [address]46 17 Dec, 2003 [facility] [id number] [address]- 6085 10 Mar, 2003 IMMUNIZATIONS No Known Immunizations SOCIAL HISTORY Never Assessed REASON FOR VISIT EMR-[facility] PLAN OF CARE VITAL SIGNS MEDICATIONS Unknown [...]
--- OUTSIDE RECORDS SUMMARY | 2018-09-19 09:17 | XMS REPORT ---
Author Author HENRY ROBERTO [facility] Address [address] [place] [address] Care Team Providers Care Seismic Survey Assistant Name Role Phone HENRYYADIRAROBERTO Unavailable PROBLEMS Type Condition ICD9-CM Code QJX73-HD Code Onset Dates Condition Status SNOMED Code Problem Bipolar disorder, unspecified F31.9 Active [id number] ALLERGIES No Information ENCOUNTERS Encounter Location Date Diagnosis [place] [id number] [place] [address] 32474- 3248 Aug, [place] [id number] [place] [address] 30750- 3551 Aug, Third trimester Z34.93 and 35 weeks gestation of Z3A.35 [place] [address] [place] [id number] [place] [address] 92395- 2734 Jul, [place] [address] [place] [place] [id number] [place] [address] 39586- 2020 Jul, Third trimester Z34.93 and 33 weeks gestation of Z3A.33 [place] [address] [place] [id number] [place] [address] 03604- 4677 Jul, [place] [address] 00274- 4521 Jul, Encounter for immunization Z23 ; 32 weeks gestation of Z3A.32 and Third trimester Z34.93 [place] [address] [place] [id number] [place] [address] 21744- 8663 Jul, [place] [address] [place] [id number] [place] [address] 88188- 3639 07 Jul, 2018 Fundal height low for dates in third trimester O26.843 ; Third trimester Z34.93 ; Non-recurrent acute suppurative otitis media of right ear without spontaneous rupture of tympanic membrane H66.001 and 29 weeks gestation of Z3A.29 [place] [address] [place] [id number] [place] [address] 34046- 6946 25 Jun, 2018 Third trimester Z34.93 ; Non-recurrent acute suppurative otitis media of right ear without spontaneous rupture of tympanic membrane H66.001 ; 29 weeks gestation of Z3A.29 and Fundal height low for dates in third trimester O26.843 [place] [address] [place] [id number] [place] [address] 10119- 5390 12 Jun, 2018 Second trimester Z34.92 ; 27 weeks gestation of Z3A.27 and Encounter for immunization Z23 [place] [address] [place] [id number] [place] [address] 73743- 8289 May, Second trimester Z34.92 ; Normal in multigravida Z34.80 and Vomiting during O21.9 [place] [address] [place] [id number] [place] [address] 61948- 0456 May, Normal in multigravida Z34.80 [place] [address] [place] [place] [id number] [place] [address] 75016- 3137 May, Vomiting during O21.9 [place] [address] [place] [id number] [place] [address] 26368- 3950 May, Second trimester Z34.92 and 24 weeks gestation of Z3A.24 [place] [address] [place] [id number] [place] [address] 56058- 7312 May, [place] [address] 49912- 1469 Apr, Second trimester Z34.92 and 19 weeks gestation of Z3A.19 [place] [address] [place] [id number] [place] [address] 27237- 4025 Apr, Second trimester Z34.92 and 19 weeks gestation of Z3A.19 [facility] [address], [place] [address] 13 Apr, 2018 Acute nasopharyngitis J00 and Sore throat J02.9 [facility] [address], [place] [address]- 8115 Apr, [facility] [id number] [place] [address] 94747- 0927 Apr, [facility] [id number] [place] [address] 69128- 5979 Apr, [facility] [address] [id number] [place] [address] 68711- 7568 Feb, First trimester Z34.91 and 10 weeks gestation of Z3A.10 [facility] [id number] [place] [address] 80873- 3957 17 Jan, 2018 [facility] [address] [id number] [place] [address] 17191- 5614 17 Jan, 2018 [facility] [address] [id number] [place] [address] 07365- 8558 17 Jan, 2018 Normal in multigravida Z34.80 and 9 weeks gestation of Z3A.09 [facility] [address], [place] [address]- 7828 Jan, [facility] [id number] [place] [address] 63527- 5492 05 Jan, 2018 Encounter for test, result unknown Z32.00 [place] [address], [place] [address]- 2979 September, History of fainting spells of unknown cause Z91.89 [facility] [address], [place] [address]- 3514 Aug, Yeast infection involving the vagina and surrounding area B37.3 ; Bipolar disorder, unspecified F31.9 and Trichomonas vaginalis infection A59.9 [facility] [id number] [place] [address] 88931- 9311 Jun, Bipolar disorder, unspecified F31.9 [place] [address] [id number] [place] [address] 15415- 8648 Jun, Encounter for surveillance of injectable contraceptive Z30.42 and Bipolar disorder, unspecified F31.9 [place] [address] [place] [id number] [place] [address] 01189- 7687 May, Encounter for Depo-Provera contraception Z30.42 [facility] [id number] [place] [address] 87835 -0700 Apr, Syncope, unspecified syncope type R55 [place] [address] [place] [id number] [place] [address] 30027- 2361 Mar, Bipolar disorder, unspecified F31.9 and High risk medication use Z79.899 [place] [address] [id number] [place] [address] 80950- 5421 Feb, [place] [address] [id number] [place] [address] 76306- 1151 Feb, Encounter for Depo-Provera contraception Z30.42 [place] [address] [place] [id number] [place] [address] 23163- 7868 Nov, Encounter for Depo-Provera contraception Z30.42 [place] [id number] [place] [address] 16655- 1162 September, [place] [address] [id number] [place] [address] 15412- 7117 Aug, [place] [address] [place] [id number] [place] [address] 52109- 1664 Aug, Late period N92.6 ; STD exposure Z20.2 ; control counseling Z30.09 and Encounter for Depo-Provera contraception Z30.42 [facility] [id number] [place] [address] 34388 -8575 Jul, Body aches R52 ; Influenza A J10.1 ; Impacted cerumen of left ear H61.22 and Acute serous otitis media of left ear, recurrence not specified H65.02 [facility] [id number] [place] [address] 25240- 6943 May, [facility] [address] 40669- 8138 Apr, Encounter for female control Z30.019 ; Encounter for Depo-Provera contraception Z30.42 and Well woman exam Z01.419 [facility] [address] [id number] Feb, Dental examination Z01.20 [facility] [address] [id number] Feb, Dental caries K02.9 [facility] [address] [id number] Feb, Dental examination Z01.20 [facility] [id number] [place] [address] 80077 -3368 Dec, Bilateral impacted cerumen H61.23 ; Dizziness R42 and Nausea R11.0 [facility] [address] [id number] [place] [address] 13902- 5526 Dec, Encounter for Depo-Provera contraception Z30.42 [facility] [id number] [place] [address] 55803- 9499 Oct, Bipolar affective disorder, currently depressed, moderate F31.32 [place] [address] [place] [id number] [place] [address] 61878- 0200 September, Bipolar disorder, unspecified F31.9 [facility] [address] [place] [id number] [place] [address] 27060- 9551 September, Bipolar disorder, unspecified F31.9 [facility] [address] 90194- 2490 September, Bipolar disorder, unspecified F31.9 [facility] [address] 28163- 5493 September, Encounter for Depo-Provera contraception Z30.42 [facility] [address] 10568- 7736 Aug, Bipolar disorder, unspecified F31.9 [place] [address] 57967- 1780 Jun, Encounter for Depo-Provera contraception Z30.42 [place] [address] 54187- 9604 Apr, URI (upper respiratory infection) J06.9 [place] [address] 10395- 3146 Mar, Encounter for Depo-Provera contraception Z30.42 [place] [address] 82166- 0889 Mar, [place] [address] 55205- 6608 Mar, Generalized anxiety disorder F41.1 and Major depressive disorder, recurrent episode, moderate F33.1 [place] [address] 01646- 1930 Jan, Esophageal reflux 530.81 ; Depression 311 and Anxiety 300.00 [place] [address] 31146- 7923 Dec, Depo-Provera contraceptive status V25.49 [place] [address] 86190- 6717 Dec, test negative V72.41 [place] [address] 19995- 0925 Oct, [place] [address] 63862- 9500 Oct, [facility] [address] [facility] [id number] [place] [address]- 8872 September, [facility] [address] [id number], [place] [address]- 1671 September, [facility] [address] [facility] [id number] [place] [address]- 9857 September, [facility] [address] [facility] [id number], [place] [address]- 9203 September, [facility] [address] [id number] [place] [address]- 3119 September, [facility] [address] [facility] [id number], [place] [address]- 8903 September, [facility] [address] [facility] [id number], [place] [address]- 7052 September, [facility] [address] [facility] [id number], [place] [address]- 6310 September, Other general counseling and advice for contraceptive management V25.09 [facility] [address] [facility] [id number] [place] [address]- 2937 September, [facility] [address] [facility] [id number], [place] [address]- 6322 September, [facility] [address] [facility] [id number], [place] [address]- 3719 September, [facility] [address] [facility] [id number], [place] [address]- 1866 September, [facility] [address] [facility] [id number] [place] [address]- 9571 Aug, [facility] [address] [facility] [id number] [place] [address]- 6888 Aug, [facility] [address] [facility] [id number], [place] [address]- 1939 Aug, [facility] [place] [facility] [address] [id number] [place] [address]- 2336 13 Aug, 2014 [facility] [place] [facility] [address] [id number] [place] [address]- 9487 27 Jul, 2014 [facility] [place] [facility] [address] [id number] [place] [address]- 0958 27 Jul, 2014 [facility] [place] [facility] [address] [id number] [place] [address]- 7648 20 Jul, 2014 [facility] [place] [facility] [address] [id number] [place] [address]- 2435 19 Jul, 2014 [facility] [place] [facility] [address] [id number] [place] [address]- 5649 19 Jul, 2014 [facility] [place] [facility] [address] [facility] [id number] [place] [address]- 2177 18 Jul, 2014 [facility] [place] [facility] [address] [id number] [place] [address]- 6735 18 Jul, 2014 [facility] [place] [facility] [address] [id number] [place] [address]- 5595 16 Jun, 2014 [facility] [place] [facility] [address] [id number] [place] [address]- 3460 16 Jun, 2014 [facility] [place] [facility] [address] [id number] [place] [address]- 0291 13 Jun, 2014 [facility] [place] [facility] [address] [id number], [place] [address]- 0044 Jun, [facility] [place] [facility] [address] [id number] [place] [address]- 4555 02 Jun, 2014 [facility] [place] [facility] [address] [id number] [place] [address]- 1111 02 Jun, 2014 [facility] [place] [facility] [address] [facility] [id number] [place] [address]- 3205 May, [facility] [place] [facility] [address] [id number] [place] [address]- 7448 13 May, 2014 [facility] [place] [facility] [address] [id number] [place] [address]- 6972 Apr, [facility] [place] [facility] [address] [id number] [place] [address]- 1413 Apr, [facility] [place] [facility] [address] [id number] [place] 5624 Apr, [facility] [place] [facility] [address] [id number] [place] [address]- 1082 Apr, [facility] [place] [facility] [address] [id number] [place] 4712 Apr, [facility] [place] [facility] [address] [id number] [place] [address]- 1955 Apr, [facility] [place] [facility] [address] [id number] [place] [address]- 3361 Mar, [facility] [place] [facility] [address] [id number] [place] [address]- 7442 Mar, [facility] [place] [facility] [address] [id number] [place] [address]- 6226 Mar, [facility] [place] [facility] [address] [facility] [id number] [place] [address]- 5821 Mar, [facility] [place] [facility] [address] [id number] [place] [address]- 2654 Mar, [facility] [place] [facility] [address] [id number] [place] [address]- 7318 Feb, [facility] [place] [facility] [address] [id number] [place] [address]- 6076 Feb, [facility] [place] [facility] [address] [id number] [place] [address]- 0110 Feb, [facility] [place] [facility] [address] [id number] [place] [address]- 3719 Feb, [facility] [place] [facility] [address] [id number] [place] [address]- 4750 Feb, 2013 [facility] [place] [facility] [address] [id number] [place] [address]- 9690 Feb, [facility] [place] [facility] [address] [id number] [place] [address]- 0582 Feb, [facility] [place] [facility] [address] [id number] [place] [address]- 3066 Feb, [facility] [place] [facility] [address] [id number] [place] [address]- 3059 05 Jan, 2013 [facility] [place] [facility] [address] [id number] [place] [address]- 1373 Jan, 2013 [facility] [place] [facility] [address] [id number] [place] [address]- 4114 Jan, 2013 [facility] [place] [facility] [address] [id number] [place] [address]- 5443 Jan, 2013 [facility] [place] [facility] [address] [id number] [place] [address]- 6042 Jan, 2013 [facility] [place] [facility] [address] [id number] [place] [address]- 5388 Jan, 2013 [facility] [place] [facility] [address] [id number] [place] [address]- 4601 Jan, 2013 [facility] [place] [facility] [address] [id number] [place] [address]- 7481 Jan, 2013 [facility] [place] [facility] [address] [id number] [place] [address]- 9601 Dec, [facility] [place] [facility] [address] [id number] [place] [address]- 2373 Dec, [facility] [place] [facility] [address] [id number] [place] [address]- 8682 Dec, [facility] [place] [facility] [address] [id number] [place] [address]- 5981 Dec, [facility] [place] [facility] [address] [id number] [place] [address]- 8434 Dec, [facility] [place] [facility] [address] [id number] [place] [address]- 8690 Dec, [facility] [place] [facility] [address] [id number] [place] [address]- 6523 Dec, [facility] [place] [facility] [address] [id number] [place] [address]- 4823 Dec, [facility] [place] [facility] [address] [id number] [place] [address]- 1114 Dec, [facility] [place] [facility] [address] [id number] [place] [address]- 4640 Dec, [facility] [place] [facility] [address] [id number] [place] [address]- 0348 Dec, [facility] [place] [facility] [address] [id number] [place] [address]- 9792 Dec, [facility] [place] [facility] [address] [id number] [place] [address]- 3404 Dec, [facility] [place] [facility] [address] [id number] [place] [address]- 5528 Dec, [facility] [place] [facility] [address] [id number] [place] [address]- 5013 Dec, [facility] [place] [facility] [address] [id number] [place] [address]- 0393 Dec, [facility] [place] [facility] [address] [id number] [place] [address]- 7634 Dec, [facility] [place] [facility] [address] [id number] [place] [address]- 6873 Nov, [facility] [place] [facility] [address] [id number] [place] [address]- 4933 Nov, [facility] [place] [facility] [address] [id number] [place] [address]- 0829 Nov, 2013 [facility] [place] [facility] [address] [id number] [place] [address]- 5665 Nov, [facility] [place] [facility] [address] [id number] [place] [address]- 0896 Nov, [facility] [place] [facility] [address] [id number] [place] [address]- 7088 Nov, 2013 [facility] [place] [facility] [address] [id number] [place] [address]- 9321 Nov, [facility] [place] [facility] [address] [id number] [place] [address]- 7908 Nov, [facility] [place] [facility] [address] [id number] [place] [address]- 8524 Nov, [facility] [place] [facility] [address] [id number] [place] [address]- 2204 Oct, [facility] [place] [facility] [address] [id number] [place] [address]- 7420 Oct, [facility] [place] [facility] [address] [id number] [place] [address]- 5453 Oct, [facility] [place] [facility] [address] [id number] [place] [address]- 3434 Oct, [facility] [place] [facility] [address] [id number] [place] [address]- 8229 Oct, [facility] [place] [facility] [address] [id number] [place] [address]- 7235 Oct, [facility] [place] [facility] [address] [id number] [place] [address]- 7453 Oct, [facility] [place] [facility] [address] [id number] [place] [address]- 2941 Oct, [facility] [place] [facility] [address] [id number] [place] [address]- 5004 Oct, [facility] [place] [facility] [address] [id number] [place] [address]- 6315 Oct, [facility] [place] [facility] [address] [id number] [place] [address]- 1790 September, [facility] [place] [facility] [address] [id number] [place] [address]- 4260 September, [facility] [place] [facility] [address] [id number] [place] [address]- 0581 September, [facility] [place] [facility] [address] [id number] [place] [address]- 5593 September, [facility] [place] [facility] [address] [id number] [place] [address]- 5961 Aug, [facility] [place] [facility] [address] [id number] [place] [address]- 9090 Aug, [facility] [place] [facility] [address] [id number] [place] [address]- 1015 Aug, [facility] [place] [facility] [address] [id number] [place] [address]- 4209 Aug, [facility] [place] [facility] [address] [id number] [place] [address]- 4158 Aug, [facility] [place] [facility] [address] [id number] [place] [address]- 0483 Aug, [facility] [place] [facility] [address] [id number] [place] [address]- 0137 15 Aug, 2013 [facility] [place] [facility] [address] [id number] [place] [address]- 6612 Aug, [facility] [place] [facility] [address] [id number] [place] [address]- 1588 Aug, [facility] [place] [facility] [address] [id number] [place] [address]- 4537 Aug, [facility] [place] [facility] [address] [id number], [place] [address]- 9047 10 Aug, 2013 [facility] [place] [facility] [address] [facility] [id number] [place] [address]- 3677 Jul, [facility] [place] [facility] [address] [facility] [id number] [place] [address]- 9202 24 Jul, 2013 [facility] [place] [facility] [address] [facility] [id number] [place] [address]- [address] Jul, [facility] [place] [facility] [address] [facility] [id number] [place] [address] Jul, [facility] [place] [facility] [id number] [address] Jul, [facility] [place] [facility] [address] [facility] [id number] [place] [address] Jul, [facility] [place] [facility] [id number] [place] [address] 28 Jun, 2013 [facility] [place] [facility] [address] [facility] [id number] [place] [address] Jun, [facility] [place] [facility] [id number] [place] [address] Jun, [facility] [place] [facility] [address] [id number] [place] [address] Jun, [facility] [place] [facility] [id number] [place] [address] 24 Jun, 2013 [facility] [place] [facility] [address] [facility] [id number] [place] [address]- [address] 24 Jun, 2013 [facility] [place] [facility] [address] [facility] [id number] [place] [address] 24 Jun, 2013 [facility] [place] [facility] [address] [facility] [id number] [place] [address] 24 Jun, 2013 [facility] [place] [facility] [id number] [place] [address] 13 Jun, 2013 [facility] [place] [facility] [address] [id number] [place] [address] Jun, 2013 [facility] [place] [facility] [address] [id number] [place] [address] Jun, [facility] [place] [facility] [address] [facility] [id number] [place] [address] Jun, [facility] [place] [facility] [address] [id number] [place] [address] Jun, [facility] [place] [facility] [address] [id number] [place] [address] Jun, [facility] [place] [facility] [address] [id number] [place] [address]- [address]275 Jun, [facility] [place] [facility] [address] [facility] [id number] [place] [address]- [address] Jun, [facility] [place] [facility] [address] [id number] [place] [address]- [address]165 Jun, [facility] [place] [facility] [address] [id number] [place] [address] Jun, [facility] [place] [facility] [address] [facility] [id number] [place] [address]- [address] Jun, [facility] [place] [facility] [address] [facility] [id number] [place] [address]- [address]396 Jun, [facility] [place] [facility] [address] [facility] [id number] [place] [address]- [address] Jun, [facility] [place] [facility] [address] [id number] [place] [address] Jun, [facility] [place] [facility] [address] [id number] [place] [address] May, [facility] [place] [facility] [address] [facility] [id number] [place] [address]- [address] May, [facility] [place] [facility] [address] [id number] [place] [address] May, [facility] [place] [facility] [address] [id number] [place] [address]- [address]44 May, [facility] [place] [facility] [address] [id number] [place] [address] 60[address] May, [facility] [place] [facility] [address] [id number] [place] [address] May, [facility] [place] [facility] [address] [id number] [place] [address] May, [facility] [place] [facility] [address] [id number] [place] [address]- [address] May, [facility] [place] [facility] [address] [id number] [place] [address] May, [facility] [place] [facility] [address] [id number] [place] [address]- [address] May, [facility] [place] [facility] [address] [id number] [place] [address] May, [facility] [place] [facility] [address] [id number] [place] [address]- [address] May, [facility] [place] [facility] [address] [id number] [place] [address] May, [facility] [place] [facility] [address] [id number] [place] [address]- [address] May, [facility] [place] [facility] [address] [id number] [place] [address] Apr, [facility] [place] [facility] [address] [id number] [place] [address]- [address] Apr, [facility] [place] [facility] [address] [id number] [place] [address] Apr, [facility] [place] [facility] [address] [id number] [place] [address] Apr, [facility] [place] [facility] [address] [id number] [place] [address] Apr, [facility] [place] [facility] [address] [id number], [place] [address] Apr, [facility] [place] [facility] [address] [facility] [id number] [place] [address] Apr, [facility] [place] [facility] [address] [id number], [place] [address] Apr, [facility] [place] [facility] [address] [id number] [place] [address] Mar, [facility] [place] [facility] [address] [id number], [place] [address] Mar, [facility] [place] [facility] [address] [id number], [place] [address] Mar, [facility] [place] [facility] [address] [id number], [place] [address] Mar, [facility] [place] [facility] [address] [id number], [place] [address] Feb, [facility] [place] [facility] [address] [id number], [place] [address] Feb, [facility] [place] [facility] [address] [id number], [place] [address] Feb, [facility] [place] [facility] [address] [id number], [place] [address] Feb, [facility] [place] [facility] [address] [id number], [place] [address] Feb, [facility] [place] [facility] [address] [facility] [id number], [place] [address] Feb, [facility] [place] [facility] [address] [id number], [place] [address] Feb, [facility] [place] [facility] [address] [id number] [place] [address] 2546 Feb, [facility] [address] [id number] [place] [address] Jan, [facility] [place] [facility] [address] [id number] [place] [address] 2546 Oct, [facility] [place] [facility] [address] [id number] [place] [address] September, [facility] [place] [facility] [address] [id number] [place] [address] 2546 Jun, [facility] [place] [facility] [address] [id number] [place] [address] Jun, [facility] [place] [facility] [address] [id number] [place] [address] Jun, [facility] [place] [facility] [address] [id number] [place] [address] 2546 Jun, [facility] [address] [id number] [place] [address] May, [facility] [place] [facility] [address] [id number] [place] [address] Apr, [facility] [address] [facility] [id number] [place] [address] Apr, [facility] [place] [facility] [address] [id number] [place] [address] 2546 Apr, [facility] [place] [facility] [address] [id number] [place] [address] 2540 Apr, [facility] [place] [facility] [address] [id number] [place] [address]46 Mar, [facility] [place] [facility] [address] [id number] [place] [address]- 2546 Mar, [facility] [place] [facility] [address] [facility] [id number] [place] [address] Jan, [facility] [place] [facility] [address] [id number] [place] [address] Dec, [facility] [place] [facility] [address] [id number] [place] [address] Dec, [facility] [place] [facility] [address] [id number] [place] [address]- [address]761 Dec, [facility] [place] [facility] [address] [id number] [place] [address]339 Dec, [facility] [place] [facility] [address] [id number] [place] [address] 1387 Nov, [facility] [place] [facility] [address] [id number] [place] [address]- 9731 Nov, [facility] [place] [facility] [address] [id number] [place] [address]400 Nov, [facility] [place] [facility] [address] [id number] [place] [address] Nov, [facility] [place] [facility] [address] [id number] [place] [address]- [address]453 Aug, [facility] [place] [facility] [address] [id number] [place] [address]897 Aug, [facility] [place] [facility] [address] [id number] [place] [address]- [address]21 Jul, [facility] [place] [facility] [address] [id number] [place] [address]- 0093 Jul, [facility] [place] [facility] [address] [id number] [place] [address] 4819 Jul, [facility] [place] [facility] [address] [id number] [place] [address] 8147 Jul, [facility] [place] [facility] [address] [id number] [place] [address]959 Jun, [facility] [place] [facility] [address] [id number] [place] [address]- 3596 28 Jun, 2011 [facility] [address] [id number] [place] [address] 2546 14 Jun, 2011 [facility] [place] [facility] [address] [id number] [place] [address] 2546 13 Jun, 2011 [facility] [place] [facility] [address] [id number] [place] [address] 2546 09 Jun, 2011 [facility] [place] [facility] [address] [id number] [place] [address] 2546 08 Jun, 2011 [facility] [place] [facility] [address] [id number] [place] [address] 2546 04 Jun, 2011 [facility] [place] [facility] [address] [id number] [place] [address] 2546 02 Jun, 2011 [facility] [place] [facility] [address] [id number] [place] [address] 2548 02 Jun, 2011 [facility] [place] [facility] [address] [id number] [place] [address] 2545 May, [facility] [place] [facility] [address] [id number] [address] May, [facility] [place] [facility] [address] [facility] [id number] [place] [address] 2541 May, [facility] [place] [facility] [address] [id number] [place] [address] 2546 May, [facility] [place] [facility] [address] [id number] [place] [address] 2546 May, [facility] [place] [facility] [address] [id number] [place] [address] 2546 Mar, [facility] [place] [facility] [address] [id number] [place] [address] 2546 Mar, [facility] [place] [facility] [address] [facility] [id number] [place] [address]- 7863 Mar, [facility] [place] [facility] [address] [id number] [place] [address]- 5118 Mar, [facility] [place] [facility] [address] [id number] [place] [address]- 4406 Mar, [facility] [place] [facility] [address] [id number] [place] [address] 1988 31 Feb, 2011 [facility] [place] [facility] [address] [id number] [place] [address]- 1744 Feb, [facility] [place] [facility] [address] [id number] [place] [address]- 0061 Dec, [facility] [place] [facility] [address] [id number] [place] [address]- 5527 Apr, [facility] [place] [facility] [address] [id number] [place] [address]- 5926 Apr, [facility] [place] [facility] [address] [id number] [place] [address]- 9656 Apr, [facility] [place] [facility] [address] [id number] [place] [address]- 0766 Feb, [facility] [place] [facility] [address] [id number], [place] [address]- 1486 Feb, [facility] [place] [facility] [address] [id number], [place] [address]- 3430 Jul, [facility] [place] [facility] [address] [id number], [place] [address]013 15 Jun, 2009 [facility] [place] [facility] [address] [id number] [place] [address]- 2218 May, [facility] [place] [facility] [address] [id number], [place] [address]- 6242 Apr, [facility] [place] [facility] [address] [id number], [place] [address]- 0239 Apr, [facility] [place] [facility] [address] [id number], [place] [address] 11 Apr, 2009 [facility] [id number], [place] [address] 25 Mar, 2009 [facility] [id number], [place] [address]- [address] 11 Jul, 2008 [facility] [id number], [place] [address]- 45[address] 16 Jun, 2008 [facility] [id number], [place] [address]- [address] 15 Jan, 2008 [facility] [id number], [place] [address]- [address] 10 Oct, 2007 [facility] [id number], [place] [address] September, [facility] [address] [id number], [place] [address]- 8636 11 Nov, 2006 [facility] [id number], [place] [address]- 8[address] 16 Sep, 2005 [facility] [id number], [place] [address]- 56[address] 17 Dec, 2003 [facility] [address] [id number], [place] [address] 10 Mar, 2003 IMMUNIZATIONS No Known Immunizations SOCIAL HISTORY Never Assessed REASON FOR VISIT u/s ob f/u walk-in [facility] PLAN OF CARE Activity Details Pending Test Ultrasound : OB F/U (IN-HOUSE) VITAL SIGNS MEDICATIONS Unknown Medications RESULTS No Results PROCEDURES Procedure Date Ordered Result Body Site OB US, FOLLOW-UP, PER FETUS July 26, 2018 INSTRUCTIONS MEDICATIONS ADMINISTERED No Known Medications [...]
--- OUTSIDE RECORDS SUMMARY | 2018-09-19 09:18 | XMS REPORT ---
Author Author Migration, Doctor Organization [facility] [place] [facility] Address Unknown Phone Unavailable Care Team Providers Care Route Service Representative Name Role Phone Migration, Doctor Unavailable Unavailable PROBLEMS Type Condition ICD9-CM Code [id number]-EL Code Onset Dates Condition Status SNOMED Code Problem Bipolar disorder, unspecified F31.9 Active [id number] ALLERGIES No Information ENCOUNTERS Encounter Location Date Diagnosis [place] [id number] [place] [address] 94127- 0605 Aug, [place] [id number] [place] [address] 01809- 1805 Aug, [place] [id number] [place] [address] 60359- 6015 Jul, [place] [id number] [place] [address] 40254- 1522 Jul, [place] [id number] [place] [address] 85302- 7756 Jul, Encounter for immunization Z23 ; 32 weeks gestation of Z3A.32 and Third trimester Z34.93 [place] [id number] [place] [address] 99560- 3361 Jul, [place] [id number] [place] [address] 94769- 7381 Jul, Fundal height low for dates in third trimester O26.843 ; Third trimester Z34.93 ; Non-recurrent acute suppurative otitis media of right ear without spontaneous rupture of tympanic membrane H66.001 and 29 weeks gestation of Z3A.29 [place] [id number] [place] [address] 00483- 4584 Jun, Third trimester Z34.93 ; Non-recurrent acute suppurative otitis media of right ear without spontaneous rupture of tympanic membrane H66.001 ; 29 weeks gestation of Z3A.29 and Fundal height low for dates in third trimester O26.843 [place] [address] 60570- 2104 Jun, Second trimester Z34.92 ; 27 weeks gestation of Z3A.27 and Encounter for immunization Z23 [place] [address] 40209- 1205 May, Second trimester Z34.92 ; Normal in multigravida Z34.80 and Vomiting during O21.9 [place] [address] 10935- 4874 May, Normal in multigravida Z34.80 [place] [address] 77842- 3874 May, Vomiting during O21.9 [place] [address] 41380- 7635 May, Second trimester Z34.92 and 24 weeks gestation of Z3A.24 [place] [address] 58194- 1282 May, [place] [address] 32862- 8117 Apr, Second trimester Z34.92 and 19 weeks gestation of Z3A.19 [place] [address] 40701- 7187 Apr, Second trimester Z34.92 and 19 weeks gestation of Z3A.19 [facility] [address] 71521 -2300 Apr, Acute nasopharyngitis J00 and Sore throat J02.9 [place] [address] 75355- 1531 Apr, [place] [address] [id number] [address] 2567 Apr, [facility] [id number] [place] [address] 42545- 7333 Apr, [facility] [id number] [place] [address] 08736- 5470 16 Feb, 2018 First trimester Z34.91 and 10 weeks gestation of Z3A.10 [place] [address] 23011- 5059 Jan, [place] [id number] [place] [address] 13959- 6074 Jan, [place] [id number] [place] [address] 22073- 8518 Jan, Normal in multigravida Z34.80 and 9 weeks gestation of Z3A.09 [place] [address] 30726- 0318 Jan, [place] [id number] [place] [address] 19449- 9916 05 Jan, 2018 Encounter for test, result unknown Z32.00 [place] [id number] [place] [address] 93725- 9814 September, History of fainting spells of unknown cause Z91.89 [place] [id number] [place] [address] 04375- 6693 Aug, Yeast infection involving the vagina and surrounding area B37.3 ; Bipolar disorder, unspecified F31.9 and Trichomonas vaginalis infection A59.9 [place] [id number] [place] [address] 75048- 6296 Jun, Bipolar disorder, unspecified F31.9 [place] [id number] [place] [address] 16831- 5744 Jun, Encounter for surveillance of injectable contraceptive Z30.42 and Bipolar disorder, unspecified F31.9 [place] [id number] [place] [address] 19280- 2249 May, Encounter for Depo-Provera contraception Z30.42 [facility] [id number] [place] [address] 28197 -9407 Apr, Syncope, unspecified syncope type R55 [place] [id number] [place] [address] 63710- 6498 Mar, Bipolar disorder, unspecified F31.9 and High risk medication use Z79.899 [place] [id number] [place] [address] 35040- 9122 Feb, [place] [id number] [place] [address] 32896- 8533 Feb, Encounter for Depo-Provera contraception Z30.42 [place] [id number] [place] [address] 11816- 2188 Nov, Encounter for Depo-Provera contraception Z30.42 [place] [id number] [place] [address] 62020- 1889 September, [place] [id number] [place] [address] 05349- 1707 Aug, [place] [address] [place] [address] 66951- 4161 Aug, Late period N92.6 ; STD exposure Z20.2 ; control counseling Z30.09 and Encounter for Depo-Provera contraception Z30.42 [facility] [id number] [place] [address] 32312 -0970 Jul, Body aches R52 ; Influenza A J10.1 ; Impacted cerumen of left ear H61.22 and Acute serous otitis media of left ear, recurrence not specified H65.02 [facility] [address] [place] [address] 97799- 0361 May, [place] [id number] [place] [address] 69299- 2385 Apr, Encounter for female control Z30.019 ; Encounter for Depo-Provera contraception Z30.42 and Well woman exam Z01.419 [facility] [place] [facility] [id number] [place] [address] [id number] Feb, Dental examination Z01.20 [facility] [place] [facility] [id number] [place] [address] [id number] Feb, Dental caries K02.9 [facility] [place] [id number] [place] [address] [id number] Feb, Dental examination Z01.20 [facility] [id number] [place] [address] 80485 -0255 Dec, Bilateral impacted cerumen H61.23 ; Dizziness R42 and Nausea R11.0 [facility] [id number] [place] [address] 43864- 7090 Dec, Encounter for Depo-Provera contraception Z30.42 [facility] [id number] [place] [address] 80077- 1622 Oct, Bipolar affective disorder, currently depressed, moderate F31.32 [facility] [id number] [place] [address] 74759- 8741 September, Bipolar disorder, unspecified F31.9 [facility] [id number] [place] [address] 71619- 5943 September, Bipolar disorder, unspecified F31.9 [place] [id number] [place] [address] 16862- 1645 September, Bipolar disorder, unspecified F31.9 [place] [id number] [place] [address] 86522- 3071 September, Encounter for Depo-Provera contraception Z30.42 [facility] [id number] [place] [address] 33543- 8623 Aug, Bipolar disorder, unspecified F31.9 [facility] [id number] [place] [address] 54999- 9354 Jun, Encounter for Depo-Provera contraception Z30.42 [facility] [id number] [place] [address] 30102- 9886 Apr, URI (upper respiratory infection) J06.9 [facility] [address] 66198- 7749 Mar, Encounter for Depo-Provera contraception Z30.42 [facility] [address] 22411- 7466 Mar, [place] [address] 83946- 0742 Mar, Generalized anxiety disorder F41.1 and Major depressive disorder, recurrent episode, moderate F33.1 [place] [address] 79783- 8404 Jan, Esophageal reflux 530.81 ; Depression 311 and Anxiety 300.00 [place] [address] 19616- 3507 Dec, Depo-Provera contraceptive status V25.49 [place] [address] 55861- 1895 Dec, test negative V72.41 [place] [id number] [place] [address] 73028- 8663 Oct, [place] [id number] [place] [address] 46667- 0909 Oct, [place] [address] 86106- 0251 September, [facility] [address] 14220- 2861 September, [facility] [address] 28795- 6934 September, [facility] [address] [id number] [place] [address]- 7093 September, [facility] [address] [id number] [place] 3022 September, [facility] [address] [id number] [place] [address]- 2238 September, [facility] [address] [id number] [place] [address]- 4576 September, [facility] [address] [id number] [place] [address]- 9216 September, Other general counseling and advice for contraceptive management V25.09 [facility] [address] [id number] [place] [address]- 2503 September, [facility] [address] [facility] [id number] [place] [address]- 5758 September, [facility] [address] [id number] [place] [address]- 9807 September, [facility] [address] [facility] [id number] [place] [address]- 7849 September, [facility] [address] [facility] [id number] [place] [address]- 3222 29 Aug, 2014 [facility] [address] [id number] [place] [address]- 1230 28 Aug, 2014 [facility] [address] [id number] [place] [address]- 5049 14 Aug, 2014 [facility] [address] [id number] [place] [address]- 2496 Aug, [facility] [address] [id number] [place] [address]- 4563 Jul, [facility] [address] [id number] [place] [address]- 8263 Jul, [facility] [place] [facility] [address] [id number] [place] [address]- 5225 20 Jul, 2014 [facility] [place] [facility] [address] [id number] [place] [address]- 4642 19 Jul, 2014 [facility] [place] [facility] [address] [id number] [place] [address]- 5445 19 Jul, 2014 [facility] [place] [facility] [address] [id number] [place] [address]- 7444 18 Jul, 2014 [facility] [place] [facility] [address] [id number] [place] [address]- 3290 18 Jul, 2014 [facility] [place] [facility] [address] [id number] [place] [address]- 2688 16 Jun, 2014 [facility] [place] [facility] [address] [id number] [place] [address]- 8168 16 Jun, 2014 [facility] [place] [facility] [address] [id number] [place] [address]- 5550 Jun, 2014 [facility] [place] [facility] [address] [id number] [place] [address]- 9910 Jun, [facility] [place] [facility] [address] [facility] [id number] [place] [address]- 9775 02 Jun, 2014 [facility] [place] [facility] [address] [id number] [place] [address]- 1163 Jun, [facility] [place] [facility] [address] [id number] [place] [address]- 7844 May, [facility] [place] [facility] [address] [id number] [place] [address]- 1751 May, [facility] [place] [facility] [address] [facility] [id number] [place] [address]- 1954 Apr, [facility] [place] [facility] [address] [id number] [place] 9437 Apr, [facility] [place] [facility] [address] [id number] [place] [address]- 2583 Apr, [facility] [place] [facility] [address] [id number] [place] [address]- 2884 Apr, [facility] [place] [facility] [address] [id number] [place] 2250 Apr, [facility] [place] [facility] [address] [id number] [place] [address]- 1281 Apr, [facility] [place] [facility] [address] [id number] [place] [address]- 1131 Mar, [facility] [place] [facility] [address] [id number] [place] [address]- 8154 Mar, [facility] [place] [facility] [address] [id number] [place] [address]- 2684 Mar, [facility] [place] [facility] [address] [id number] [place] [address]- 3827 Mar, [facility] [place] [facility] [address] [id number] [place] [address]- 3208 Mar, [facility] [place] [facility] [address] [id number] [place] [address]- 2424 Feb, [facility] [place] [facility] [address] [id number] [place] [address]- 6720 Feb, [facility] [place] [facility] [address] [id number] [place] [address]- 6068 Feb, [facility] [place] [facility] [address] [id number] [place] [address]- 9843 Feb, [facility] [place] [facility] [address] [id number] [place] [address]- 5956 Feb, [facility] [place] [facility] [address] [id number] [place] [address]- 7321 Feb, [facility] [place] [facility] [address] [id number] [place] [address]- 6650 Feb, [facility] [place] [facility] [address] [id number] [place] [address]- 0571 Feb, [facility] [place] [facility] [address] [id number] [place] [address]- 4024 Jan, 2013 [facility] [place] [facility] [address] [id number] [place] [address]- 0700 Jan, 2013 [facility] [place] [facility] [address] [id number] [place] [address]- 3190 Jan, 2013 [facility] [place] [facility] [address] [id number] [place] [address]- 9973 Jan, 2013 [facility] [place] [facility] [address] [id number] [place] [address]- 7218 Jan, 2013 [facility] [place] [facility] [address] [id number] [place] [address]- 3953 Jan, 2013 [facility] [place] [facility] [address] [id number] [place] [address]- 8134 Jan, 2013 [facility] [place] [facility] [address] [id number] [place] [address]- 1316 Jan, [facility] [place] [facility] [address] [id number] [place] [address]- 4203 Dec, [facility] [place] [facility] [address] [id number] [place] [address]- 8589 Dec, [facility] [place] [facility] [address] [id number], [place] [address]- 4370 Dec, [facility] [place] [facility] [address] [id number] [place] [address]- 0716 Dec, [facility] [place] [facility] [address] [id number] [place] [address]- 1637 Dec, [facility] [place] [facility] [address] [id number] [place] [address]- 4791 Dec, [facility] [place] [facility] [address] [id number], [place] [address]- 6833 Dec, [facility] [place] [facility] [address] [id number] [place] [address]- 8583 Dec, [facility] [place] [facility] [address] [id number] [place] [address]- 4144 Dec, [facility] [place] [facility] [address] [id number] [place] [address]- 2504 Dec, [facility] [place] [facility] [address] [id number] [place] [address]- 9157 Dec, [facility] [place] [facility] [address] [id number] [place] [address]- 5426 Dec, [facility] [place] [facility] [address] [id number] [place] [address]- 6932 Dec, [facility] [place] [facility] [address] [id number] [place] [address]- 6037 Dec, [facility] [place] [facility] [address] [id number] [place] [address]- 5288 Dec, [facility] [place] [facility] [address] [id number] [place] [address]- 0907 Dec, [facility] [place] [facility] [address] [id number] [place] [address]- 3175 Dec, [facility] [place] [facility] [address] [id number] [place] [address]- 0385 Nov, [facility] [place] [facility] [address] [id number] [place] [address]- 6794 Nov, [facility] [place] [facility] [address] [id number] [place] [address]- 1396 Nov, [facility] [place] [facility] [address] [id number] [place] [address]- 5490 Nov, [facility] [place] [facility] [address] [id number] [place] [address]- 3218 Nov, [facility] [place] [facility] [address] [id number] [place] [address]- 7654 Nov, [facility] [place] [facility] [address] [id number] [place] [address]- 6210 Nov, [facility] [place] [facility] [address] [id number] [place] [address]- 8890 Nov, [facility] [place] [facility] [address] [id number] [place] [address]- 3825 Nov, [facility] [place] [facility] [address] [id number] [place] [address]- 6880 Oct, [facility] [place] [facility] [address] [id number] [place] [address]- 3326 Oct, [facility] [place] [facility] [address] [id number] [place] [address]- 4663 Oct, [facility] [place] [facility] [address] [id number] [place] [address]- 4110 Oct, [facility] [place] [facility] [address] [id number] [place] [address]- 0484 Oct, [facility] [place] [facility] [address] [id number] [place] [address]- 9373 Oct, [facility] [place] [facility] [address] [id number] [place] [address]- 6333 Oct, [facility] [place] [facility] [address] [id number] [place] [address]- 5178 Oct, [facility] [place] [facility] [address] [id number] [place] [address]- 8157 Oct, [facility] [place] [facility] [address] [id number] [place] [address]- 9853 Oct, [facility] [place] [facility] [address] [id number] [place] [address]- 8148 September, [facility] [place] [facility] [address] [id number] [place] [address]- 8006 September, [facility] [address] [id number] [place] [address]- 2114 September, [facility] [place] [facility] [address] [id number] [place] [address]- 4352 September, [facility] [place] [facility] [address] [id number] [place] [address]- 2407 Aug, [facility] [place] [facility] [address] [id number] [place] [address]- 3139 Aug, [facility] [place] [facility] [address] [id number] [place] [address]- 2910 Aug, [facility] [place] [facility] [address] [id number] [place] [address]- 4410 Aug, [facility] [place] [facility] [address] [id number] [place] [address]- 6681 Aug, [facility] [place] [facility] [address] [id number] [place] [address]- 9907 Aug, [facility] [place] [facility] [address] [id number] [place] [address]- 6199 Aug, [facility] [place] [facility] [address] [id number] [place] [address]- 9698 Aug, [facility] [place] [facility] [address] [id number] [place] [address]- 1662 Aug, [facility] [place] [facility] [address] [id number] [place] [address] Aug, [facility] [place] [facility] [address] [id number] [place] [address] Aug, [facility] [place] [facility] [address] [id number] [place] [address] Jul, [facility] [place] [facility] [address] [id number] [place] [address] Jul, [facility] [place] [facility] [address] [id number] [place] [address] 10 Jul, 2013 [facility] [place] [facility] [address] [id number] [place] [address] 10 Jul, 2013 [facility] [place] [facility] [address] [id number] [place] [address] Jul, [facility] [place] [facility] [address] [facility] [id number] [place] [address] Jul, [facility] [place] [facility] [address] [id number] [place] [address] Jun, [facility] [place] [facility] [address] [id number] [place] [address] Jun, [facility] [place] [facility] [address] [id number] [place] [address] Jun, [facility] [place] [facility] [address] [facility] [id number] [place] [address] Jun, [facility] [place] [facility] [address] [id number] [place] [address] 24 Jun, 2013 [facility] [place] [facility] [address] [facility] [id number] [place] [address]- 98[address] 24 Jun, 2013 [facility] [place] [facility] [address] [facility] [id number] [place] [address] 24 Jun, 2013 [facility] [place] [facility] [address] [facility] [id number] [place] [address] 24 Jun, 2013 [facility] [place] [facility] [address] [id number] [place] [address]- [address] 13 Jun, 2013 [facility] [place] [facility] [address] [id number] [place] [address]- [address] 13 Jun, 2013 [facility] [place] [facility] [address] [facility] [id number] [place] [address] 12 Jun, 2013 [facility] [place] [facility] [address] [facility] [id number] [place] [address] Jun, [facility] [place] [facility] [address] [id number] [place] [address] Jun, [facility] [place] [facility] [address] [id number] [place] [address] Jun, 2013 [facility] [place] [facility] [address] [facility] [id number] [place] [address] Jun, 2013 [facility] [place] [facility] [address] [id number] [place] [address]- [address] Jun, 2013 [facility] [place] [facility] [address] [id number] [place] [address]- [address] Jun, [facility] [place] [facility] [address] [facility] [id number] [place] [address] Jun, [facility] [place] [facility] [address] [facility] [id number] [place] [address]- [address] Jun, 2013 [facility] [place] [facility] [address] [facility] [id number] [place] [address]- [address] Jun, [facility] [place] [facility] [address] [facility] [id number] [place] [address]- [address] Jun, [facility] [place] [facility] [address] [facility] [id number] [place] [address] Jun, [facility] [place] [facility] [address] [facility] [id number] [place] [address] May, [facility] [place] [facility] [address] [facility] [id number] [place] [address] May, [facility] [place] [facility] [address] [id number] [place] [address] 58[address] May, [facility] [place] [facility] [address] [facility] [id number] [place] [address]- [address] May, [facility] [place] [facility] [address] [facility] [id number], [place] [address] May, [facility] [place] [facility] [address] [id number] [place] [address]- [address] May, [facility] [address] [id number] [place] [address]- [address] May, [facility] [address] [id number] [place] [address]- 15[address] May, [facility] [address] [id number] [place] [address]- [address] May, [facility] [address] [id number] [place] [address]- 118[address] May, [facility] [address] [id number] [place] [address]- [address] May, [facility] [address] [id number] [place] [address] May, [facility] [address] [id number] [place] [address]- [address] May, [facility] [address] [id number] [place] [address]- [address] May, [facility] [address] [id number] [place] [place] [address] Apr, [facility] [address] [id number] [place] [address] Apr, [facility] [address] [id number] [place] [address] Apr, [facility] [place] [facility] [address] [id number] [place] [address] Apr, [facility] [place] [facility] [address] [id number] [place] [address] Apr, [facility] [place] [facility] [address] [id number] [place] [address] Apr, [facility] [place] [facility] [address] [id number] [place] [address] Apr, [facility] [place] [facility] [address] [id number] [place] [address] Apr, [facility] [place] [facility] [address] [id number], [place] [address] Mar, [facility] [place] [facility] [address] [id number] [place] [address] 2544 Mar, [facility] [place] [facility] [address] [id number], [place] [address] Mar, [facility] [place] [facility] [address] [id number] [place] [address] Mar, [facility] [place] [facility] [address] [id number] [place] [address] 8969 Feb, [facility] [place] [facility] [address] [id number], [place] [address] Feb, [facility] [place] [facility] [address] [id number], [place] [address] Feb, [facility] [place] [facility] [address] [id number][place] [address] Feb, [facility] [place] [facility] [address] [id number], [place] [address] Feb, [facility] [place] [facility] [address] [id number], [place] [address]- [address] Feb, [facility] [place] [facility] [address] [id number] [address] Feb, [facility] [place] [facility] [address] [id number], [place] [address] Feb, [facility] [place] [facility] [address] [id number], [place] [address] Jan, [facility] [place] [facility] [address] [id number], [place] [address] Oct, [facility] [place] [facility] [address] [id number] [place] [address] 89[address] September, [facility] [address] [id number] [place] [address] Jun, [facility] [place] [facility] [address] [id number] [place] [address] 1006 Jun, [facility] [place] [facility] [address] [id number] [place] [address] 4[address] Jun, [facility] [place] [facility] [address] [id number] [place] [address] 2546 Jun, [facility] [place] [facility] [address] [id number] [place] [address] May, [facility] [place] [facility] [address] [id number] [place] [address] Apr, [facility] [place] [facility] [address] [id number] [place] [address] Apr, [facility] [address] [id number] [place] [address] Apr, [facility] [place] [facility] [address] [id number] [place] [address]29 Apr, [facility] [address] [id number] [place] [address] 1009 Mar, [facility] [place] [facility] [address] [id number] [place] [address] 9485 16 Mar, 2012 [facility] [place] [facility] [address] [id number] [place] [address]- [address] 07 Jan, 2012 [facility] [place] [facility] [address] [id number] [place] [address] 14 Dec, 2011 [facility] [place] [facility] [address] [id number] [place] [address] 2546 14 Dec, 2011 [facility] [place] [facility] [address] [id number] [place] [address]- 6[address] Dec, [facility] [place] [facility] [address] [id number] [place] [address]94 Dec, [facility] [place] [facility] [address] [id number] [place] [address] 1186 Nov, [facility] [place] [facility] [address] [id number] [place] [address]- 1535 Nov, [facility] [place] [facility] [address] [id number] [place] [address]- 2193 Nov, [facility] [place] [facility] [address] [id number] [place] [address]- 7835 Nov, [facility] [place] [facility] [address] [id number] [place] [address] 4861 Aug, [facility] [place] [facility] [address] [id number] [place] [address]- 9[address] Aug, [facility] [place] [facility] [address] [id number] [place] [address]- [address] Jul, [facility] [place] [facility] [address] [id number] [place] [address]- 4072 Jul, [facility] [place] [facility] [address] [id number] [place] [address]- 5661 Jul, [facility] [place] [facility] [address] [id number] [place] [address]- 9738 Jul, [facility] [place] [facility] [address] [id number] [place] [address]- 8951 Jun, [facility] [place] [facility] [address] [id number] [place] [address]- 2828 Jun, [facility] [place] [facility] [address] [id number] [place] [address]- 8188 14 Jun, 2011 [facility] [place] [facility] [address] [id number] [place] [address]- 9446 Jun, [facility] [place] [facility] [address] [id number] [place] [address]- 2861 09 Jun, 2011 [facility] [place] [facility] [address] [id number] [place] [address]- 1379 08 Jun, 2011 [facility] [place] [facility] [address] [id number] [place] [address]- 2546 04 Jun, 2011 [facility] [place] [facility] [address] [id number] [place] [address]- 7386 Jun, [facility] [place] [facility] [address] [id number] [place] [address] 2549 Jun, [facility] [place] [facility] [address] [id number] [place] [address]- 6022 May, [facility] [place] [facility] [address] [id number] [place] [address]- 4979 May, [facility] [place] [facility] [address] [id number] [place] [address]- 6320 May, [facility] [place] [facility] [address] [id number] [place] [address]- 9901 May, [facility] [place] [facility] [address] [facility] [id number] [place] [address]- 1582 May, [facility] [place] [facility] [address] [id number] [place] [address]- 5471 Mar, [facility] [place] [facility] [address] [id number] [place] [address]- 6889 Mar, [facility] [place] [facility] [address] [id number] [place] [address]- 2543 Mar, [facility] [place] [facility] [address] [id number] [place] [address] 2547 Mar, [facility] [place] [facility] [address] [id number] [place] [address]- 2542 Mar, [facility] [place] [facility] [address] [id number] [place] [address]- 0133 31 Feb, 2011 [facility] [place] [facility] [address] [id number] [place] [address]- 8584 19 Feb, 2011 [facility] [place] [facility] [address] [id number] [place] [address]- 3236 10 Dec, 2010 [facility] [place] [facility] [address] [facility] [id number] [place] [address]- 8566 30 Apr, 2010 [facility] [place] [facility] [address] [id number] [place] [address]- 4576 07 Apr, 2010 [facility] [place] [facility] [address] [id number] [place] [address]- 5186 Apr, [facility] [place] [facility] [address] [id number] [place] [address]- 9487 29 Feb, 2010 [facility] [place] [facility] [address] [id number] [place] [address]- 8373 Feb, [facility] [place] [facility] [address] [id number], [place] [address]- 7042 Jul, [facility] [place] [facility] [address] [id number] [place] [address]- 9243 15 Jun, 2009 [facility] [place] [facility] [address] [id number] [place] [address]- 9582 May, [facility] [place] [facility] [address] [id number], [place] [address]- 5465 29 Apr, 2009 [facility] [place] [facility] [address] [id number], [place] [address]- 1597 Apr, [facility] [place] [facility] [address] [id number] [place] [address]- 2726 Apr, [facility] [place] [facility] [address] [facility] [id number], [place] [address]- 4916 Mar, [facility] [place] [facility] [address] [facility] [id number], [place] [address]- 8806 Jul, [facility] [place] [facility] [address] [id number], [place] [address] 16 Jun, 2008 [facility] [id number], [place] [address] 2546 15 Jan, 2008 [facility] [id number], [place] [address]- [address]46 10 Oct, 2007 [facility] [id number], [place] [address]- [address]46 13 Sep, 2007 [facility] [id number], [place] [address]- [address]46 11 Nov, 2006 [facility] [id number], [place] [address]- 6196 16 Sep, 2005 [facility] [id number], [place] [address]- [address]46 17 Dec, 2003 [facility] [id number], [place] [address]- [address] 10 Mar, 2003 IMMUNIZATIONS No Known Immunizations SOCIAL HISTORY Never Assessed REASON FOR VISIT EMR[facility] PLAN OF CARE VITAL SIGNS MEDICATIONS Unknown [...]
[2018-09-19] MEDS ORDERED: LIDOCAINE PF 2% 5 ML (XYLOCAINE) VIAL ONE (09:19)
[2018-09-19] MEDS ORDERED: fentaNYL INJECTION 100 MCG/2 ML AMP ONE (09:19)
[2018-09-19] MEDS ORDERED: BUPIVACAINE 0.25% 30 ML (SENSORCAINE) VIAL ONE (09:19)
--- OUTSIDE RECORDS SUMMARY | 2018-09-19 09:19 | XMS REPORT ---
Author Author Migration, Doctor Organization [facility] Address Unknown Phone Unavailable Care Team Providers Care Punch Card Operator Name Role Phone Migration, Doctor Unavailable Unavailable PROBLEMS Type Condition ICD9-CM Code VEO22-UM Code Onset Dates Condition Status SNOMED Code Problem Bipolar disorder, unspecified F31.9 Active [id number] ALLERGIES No Information ENCOUNTERS Encounter Location Date Diagnosis [place] [id number] [place] [address] 25474- 5657 Aug, [place] [id number] [place] [address] 54686- 5596 Aug, [place] [id number] [place] [address] 03540- 0845 Jul, [place] [id number] [place] [address] 90682- 9199 Jul, [place] [id number] [place] [address] 96012- 9810 Jul, Encounter for immunization Z23 ; 32 weeks gestation of Z3A.32 and Third trimester Z34.93 [place] [id number] [place] [address] 26643- 5422 Jul, [place] [id number] [place] [address] 34049- 4158 Jul, Fundal height low for dates in third trimester O26.843 ; Third trimester Z34.93 ; Non-recurrent acute suppurative otitis media of right ear without spontaneous rupture of tympanic membrane H66.001 and 29 weeks gestation of Z3A.29 [place] [address] [place] [address] 03990- 0505 Jun, Third trimester Z34.93 ; Non-recurrent acute suppurative otitis media of right ear without spontaneous rupture of tympanic membrane H66.001 ; 29 weeks gestation of Z3A.29 and Fundal height low for dates in third trimester O26.843 [place] [address] 22760- 6961 Jun, Second trimester Z34.92 ; 27 weeks gestation of Z3A.27 and Encounter for immunization Z23 [place] [address] 38946- 0596 May, Second trimester Z34.92 ; Normal in multigravida Z34.80 and Vomiting during O21.9 [place] [address] 59274- 1279 May, Normal in multigravida Z34.80 [place] [address] 76949- 8321 May, Vomiting during O21.9 [place] [address] 66771- 1760 May, Second trimester Z34.92 and 24 weeks gestation of Z3A.24 [place] [address] 61384- 8820 May, [place] [address] 45542- 6515 Apr, Second trimester Z34.92 and 19 weeks gestation of Z3A.19 [place] [address] 34477- 9219 Apr, Second trimester Z34.92 and 19 weeks gestation of Z3A.19 [facility] [address] 05926 -5159 Apr, Acute nasopharyngitis J00 and Sore throat J02.9 [place] [address] 07583- 0444 Apr, [place] [address] [id number] [address] 43[address] Apr, [facility] [id number] [place] [address] 02103- 9877 Apr, [facility] [id number] [place] [address] 21094- 6072 16 Feb, 2018 First trimester Z34.91 and 10 weeks gestation of Z3A.10 [place] [address] 94628- 5620 Jan, [place] [id number] [place] [address] 41038- 9469 Jan, [place] [id number] [place] [address] 60179- 3075 Jan, Normal in multigravida Z34.80 and 9 weeks gestation of Z3A.09 [place] [address] 67285- 6196 Jan, [place] [id number] [place] [address] 28345- 8319 05 Jan, 2018 Encounter for test, result unknown Z32.00 [place] [id number] [place] [address] 30204- 0196 September, History of fainting spells of unknown cause Z91.89 [place] [id number] [place] [address] 29816- 4350 Aug, Yeast infection involving the vagina and surrounding area B37.3 ; Bipolar disorder, unspecified F31.9 and Trichomonas vaginalis infection A59.9 [place] [id number] [place] [address] 86083- 0828 Jun, Bipolar disorder, unspecified F31.9 [place] [address] [place] [address] 50052- 1625 Jun, Encounter for surveillance of injectable contraceptive Z30.42 and Bipolar disorder, unspecified F31.9 [place] [address] [place] [address] 23626- 8180 May, Encounter for Depo-Provera contraception Z30.42 [facility] [id number] [place] [address] 22649 -1813 Apr, Syncope, unspecified syncope type R55 [place] [id number] [place] [address] 68709- 5306 Mar, Bipolar disorder, unspecified F31.9 and High risk medication use Z79.899 [place] [id number] [place] [address] 49284- 0879 Feb, [place] [id number] [place] [address] 13854- 1753 Feb, Encounter for Depo-Provera contraception Z30.42 [place] [id number] [place] [address] 96317- 6080 Nov, Encounter for Depo-Provera contraception Z30.42 [place] [id number] [place] [address] 88531- 6359 September, [place] [id number] [place] [address] 89336- 1575 Aug, [place] [address] [place] [address] 98999- 0250 Aug, Late period N92.6 ; STD exposure Z20.2 ; control counseling Z30.09 and Encounter for Depo-Provera contraception Z30.42 [facility] [address] [place] [address] 45569 -3559 Jul, Body aches R52 ; Influenza A J10.1 ; Impacted cerumen of left ear H61.22 and Acute serous otitis media of left ear, recurrence not specified H65.02 [facility] [address] [place] [address] 78134- 9718 May, [place] [id number] [place] [address] 87618- 0382 Apr, Encounter for female control Z30.019 ; Encounter for Depo-Provera contraception Z30.42 and Well woman exam Z01.419 [facility] [id number] [place] [address] [id number] Feb, Dental examination Z01.20 [facility] [id number] [place] [address] [id number] Feb, Dental caries K02.9 [facility] [id number] [place] [address] [id number] Feb, Dental examination Z01.20 [facility] [id number] [place] [address] 45410 -3367 Dec, Bilateral impacted cerumen H61.23 ; Dizziness R42 and Nausea R11.0 [facility] [id number] [place] [address] 55984- 7891 Dec, Encounter for Depo-Provera contraception Z30.42 [facility] [id number] [place] [address] 36131- 9489 Oct, Bipolar affective disorder, currently depressed, moderate F31.32 [facility] [id number] [place] [address] 90270- 2126 September, Bipolar disorder, unspecified F31.9 [facility] [id number] [place] [address] 71315- 7212 September, Bipolar disorder, unspecified F31.9 [place] [id number] [place] [address] 32154- 8378 September, Bipolar disorder, unspecified F31.9 [place] [id number] [place] [address] 61441- 2576 September, Encounter for Depo-Provera contraception Z30.42 [facility] [id number] [place] [address] 83753- 2568 Aug, Bipolar disorder, unspecified F31.9 [facility] [id number] [place] [address] 48987- 3902 Jun, Encounter for Depo-Provera contraception Z30.42 [facility] [id number] [place] [address] 41352- 7137 Apr, URI (upper respiratory infection) J06.9 [facility] [address] 89142- 7864 Mar, Encounter for Depo-Provera contraception Z30.42 [facility] [address] 68611- 6898 Mar, [place] [address] 84067- 9014 Mar, Generalized anxiety disorder F41.1 and Major depressive disorder, recurrent episode, moderate F33.1 [place] [address] 43200- 1586 Jan, Esophageal reflux 530.81 ; Depression 311 and Anxiety 300.00 [place] [address] 59511- 3250 Dec, Depo-Provera contraceptive status V25.49 [place] [address] 33037- 9062 Dec, test negative V72.41 [place] [id number] [place] [address] 60805- 6500 Oct, [place] [id number] [place] [address] 77084- 8058 Oct, [place] [address] 18181- 3739 September, [facility] [address] 04572- 5142 September, [facility] [address] 76743- 3573 September, [facility] [address] [id number] [place] [address]- 2400 September, [facility] [address] [id number] [place] 7321 September, [facility] [address] [id number] [place] [address]- 2728 September, [facility] [address] [id number] [place] [address]- 5432 September, [facility] [address] [id number] [place] [address]- 3579 September, Other general counseling and advice for contraceptive management V25.09 [facility] [address] [id number] [place] [address]- 4034 September, [facility] [address] [facility] [id number] [place] [address]- 2834 September, [facility] [address] [id number] [place] [address]- 0425 September, [facility] [address] [facility] [id number] [place] [address]- 9747 September, [facility] [address] [facility] [id number] [place] [address]- 3229 29 Aug, 2014 [facility] [address] [id number] [place] [address]- 5702 28 Aug, 2014 [facility] [address] [id number] [place] [address]- 2815 14 Aug, 2014 [facility] [address] [id number] [place] [address]- 8937 Aug, [facility] [address] [id number] [place] [address]- 3776 Jul, [facility] [address] [id number] [place] [address]- 6452 Jul, [facility] [place] [facility] [address] [id number] [place] [address]- 9661 20 Jul, 2014 [facility] [place] [facility] [address] [id number] [place] [address]- 3739 19 Jul, 2014 [facility] [place] [facility] [address] [id number] [place] [address]- 6165 19 Jul, 2014 [facility] [place] [facility] [address] [id number] [place] [address]- 3674 18 Jul, 2014 [facility] [place] [facility] [address] [id number] [place] [address]- 5529 18 Jul, 2014 [facility] [place] [facility] [address] [id number] [place] [address]- 7662 16 Jun, 2014 [facility] [place] [facility] [address] [id number] [place] [address]- 0398 16 Jun, 2014 [facility] [place] [facility] [address] [id number] [place] [address]- 2966 Jun, 2014 [facility] [place] [facility] [address] [id number] [place] [address]- 5313 Jun, [facility] [place] [facility] [address] [facility] [id number] [place] [address]- 1601 02 Jun, 2014 [facility] [place] [facility] [address] [id number] [place] [address]- 8034 Jun, [facility] [place] [facility] [address] [id number] [place] [address]- 7298 May, [facility] [place] [facility] [address] [id number] [place] [address]- 5598 May, [facility] [place] [facility] [address] [facility] [id number] [place] [address]- 8179 Apr, [facility] [place] [facility] [address] [id number] [place] 2873 Apr, [facility] [place] [facility] [address] [id number] [place] [address]- 4258 Apr, [facility] [place] [facility] [address] [id number] [place] [address]- 1135 Apr, [facility] [place] [facility] [address] [id number] [place] 0705 Apr, [facility] [place] [facility] [address] [id number] [place] [address]- 8428 Apr, [facility] [place] [facility] [address] [id number] [place] [address]- 0217 Mar, [facility] [place] [facility] [address] [id number] [place] [address]- 2632 Mar, [facility] [place] [facility] [address] [id number] [place] [address]- 8308 Mar, [facility] [place] [facility] [address] [id number] [place] [address]- 5966 Mar, [facility] [place] [facility] [address] [id number] [place] [address]- 7343 Mar, [facility] [place] [facility] [address] [id number] [place] [address]- 1024 Feb, [facility] [place] [facility] [address] [id number] [place] [address]- 3723 Feb, [facility] [place] [facility] [address] [id number] [place] [address]- 0392 Feb, [facility] [place] [facility] [address] [id number] [place] [address]- 9477 Feb, [facility] [place] [facility] [address] [id number] [place] [address]- 2536 Feb, [facility] [place] [facility] [address] [id number] [place] [address]- 6926 Feb, [facility] [place] [facility] [address] [id number] [place] [address]- 7356 Feb, [facility] [place] [facility] [address] [id number] [place] [address]- 1522 Feb, [facility] [place] [facility] [address] [id number] [place] [address]- 1201 Jan, 2013 [facility] [place] [facility] [address] [id number] [place] [address]- 4483 Jan, 2013 [facility] [place] [facility] [address] [id number] [place] [address]- 3931 Jan, 2013 [facility] [place] [facility] [address] [id number] [place] [address]- 4567 Jan, 2013 [facility] [place] [facility] [address] [id number] [place] [address]- 1250 Jan, 2013 [facility] [place] [facility] [address] [id number] [place] [address]- 2983 Jan, 2013 [facility] [place] [facility] [address] [id number] [place] [address]- 3196 Jan, 2013 [facility] [place] [facility] [address] [id number] [place] [address]- 8442 Jan, [facility] [place] [facility] [address] [id number] [place] [address]- 1481 Dec, [facility] [place] [facility] [address] [id number] [place] [address]- 9003 Dec, [facility] [place] [facility] [address] [id number] [address]- 8387 Dec, [facility] [place] [facility] [address] [id number] [place] [address]- 2297 Dec, [facility] [place] [facility] [address] [id number] [place] [address]- 6494 Dec, [facility] [place] [facility] [address] [id number] [place] [address]- 2810 Dec, [facility] [place] [facility] [address] [id number] [address]- 1272 Dec, [facility] [place] [facility] [address] [id number] [place] [address]- 6497 Dec, [facility] [place] [facility] [address] [id number] [place] [address]- 9811 Dec, [facility] [place] [facility] [address] [id number] [place] [address]- 7967 Dec, [facility] [place] [facility] [address] [id number] [place] [address]- 5740 Dec, [facility] [place] [facility] [address] [id number] [place] [address]- 6050 Dec, [facility] [place] [facility] [address] [id number] [place] [address]- 7232 Dec, [facility] [place] [facility] [address] [id number] [place] [address]- 4092 Dec, [facility] [place] [facility] [address] [id number] [place] [address]- 3608 Dec, [facility] [place] [facility] [address] [id number] [place] [address]- 7912 Dec, [facility] [place] [facility] [address] [id number] [place] [address]- 5161 Dec, [facility] [place] [facility] [address] [id number] [place] [address]- 8906 Nov, [facility] [place] [facility] [address] [id number] [place] [address]- 7776 Nov, [facility] [place] [facility] [address] [id number] [place] [address]- 2046 Nov, [facility] [place] [facility] [address] [id number] [place] [address]- 7027 Nov, [facility] [place] [facility] [address] [id number] [place] [address]- 3523 Nov, [facility] [place] [facility] [address] [id number] [place] [address]- 4658 Nov, [facility] [place] [facility] [address] [id number] [place] [address]- 1012 Nov, [facility] [place] [facility] [address] [id number] [place] [address]- 3945 Nov, [facility] [place] [facility] [address] [id number] [place] [address]- 5683 Nov, [facility] [place] [facility] [address] [id number] [place] [address]- 7836 Oct, [facility] [place] [facility] [address] [id number] [place] [address]- 2183 Oct, [facility] [place] [facility] [address] [id number] [place] [address]- 4665 Oct, [facility] [place] [facility] [address] [id number] [place] [address]- 1945 Oct, [facility] [place] [facility] [address] [id number] [place] [address]- 3259 Oct, [facility] [place] [facility] [address] [id number] [place] [address]- 9328 Oct, [facility] [place] [facility] [address] [id number] [place] [address]- 6693 Oct, [facility] [place] [facility] [address] [id number] [place] [address]- 7719 Oct, [facility] [place] [facility] [address] [id number] [place] [address]- 4925 Oct, [facility] [place] [facility] [address] [id number] [place] [address]- 2971 Oct, [facility] [place] [facility] [address] [id number] [place] [address]- 6407 September, [facility] [place] [facility] [address] [id number] [place] [address]- 1445 September, [facility] [address] [id number] [place] [address]- 5439 September, [facility] [place] [facility] [address] [id number] [place] [address]- 0593 September, [facility] [place] [facility] [address] [id number] [place] [address]- 4656 Aug, [facility] [place] [facility] [address] [id number] [place] [address]- 5465 Aug, [facility] [place] [facility] [address] [id number] [place] [address]- 4320 Aug, [facility] [place] [facility] [address] [id number] [place] [address]- 6205 Aug, [facility] [place] [facility] [address] [id number] [place] [address]- 6348 Aug, [facility] [place] [facility] [address] [id number] [place] [address]- 2555 Aug, [facility] [place] [facility] [address] [id number] [place] [address]- 3288 Aug, [facility] [place] [facility] [address] [id number] [place] [address]- 8202 Aug, [facility] [place] [facility] [address] [id number] [place] [address]- 3670 Aug, [facility] [place] [facility] [address] [id number] [place] [address]- 3755 Aug, [facility] [place] [facility] [address] [id number] [place] [address]- 3094 Aug, [facility] [place] [facility] [address] [id number] [place] [address]- 4087 Jul, [facility] [place] [facility] [address] [id number] [place] [address]- 2171 Jul, [facility] [place] [facility] [address] [id number] [place] [address]- 2209 10 Jul, 2013 [facility] [place] [facility] [address] [id number] [place] [address]- 9095 10 Jul, 2013 [facility] [place] [facility] [address] [id number] [place] [address]- 1974 Jul, [facility] [place] [facility] [address] [facility] [id number] [place] [address]- [address] Jul, [facility] [place] [facility] [address] [id number] [place] [address] Jun, [facility] [place] [facility] [address] [id number] [place] [address] Jun, [facility] [place] [facility] [address] [id number] [place] [address] Jun, [facility] [place] [facility] [address] [facility] [id number] [place] [address] Jun, [facility] [place] [facility] [address] [id number] [place] [address] 24 Jun, 2013 [facility] [place] [facility] [address] [facility] [id number] [place] [address] 2016 24 Jun, 2013 [facility] [place] [facility] [address] [facility] [id number] [place] [address] 24 Jun, 2013 [facility] [place] [facility] [address] [facility] [id number] [place] [address] 24 Jun, 2013 [facility] [place] [facility] [address] [id number] [place] [address] 13 Jun, 2013 [facility] [place] [facility] [address] [id number] [place] [address] 13 Jun, 2013 [facility] [place] [facility] [address] [facility] [id number] [place] [address] 12 Jun, 2013 [facility] [place] [facility] [address] [facility] [id number] [place] [address] Jun, [facility] [place] [facility] [address] [id number] [place] [address] Jun, [facility] [place] [facility] [address] [id number] [place] [address] Jun, 2013 [facility] [place] [facility] [address] [facility] [id number] [place] [address] Jun, 2013 [facility] [place] [facility] [address] [id number] [place] [address] Jun, 2013 [facility] [place] [facility] [address] [id number] [place] [address] Jun, [facility] [place] [facility] [address] [facility] [id number] [place] [address] Jun, [facility] [place] [facility] [address] [facility] [id number] [place] [address] Jun, 2013 [facility] [place] [facility] [address] [facility] [id number] [place] [address] Jun, [facility] [place] [facility] [address] [facility] [id number] [place] [address] Jun, [facility] [place] [facility] [address] [facility] [id number] [place] [address] Jun, [facility] [place] [facility] [address] [facility] [id number] [place] [address] May, [facility] [place] [facility] [address] [facility] [id number] [place] [address] May, [facility] [place] [facility] [address] [id number] [place] [address] May, [facility] [place] [facility] [address] [facility] [id number] [place] [address] May, [facility] [place] [facility] [address] [facility] [id number] [address] May, [facility] [place] [facility] [address] [id number] [place] [address] May, [facility] [address] [id number] [place] [address] May, [facility] [address] [id number] [place] [address] May, [facility] [address] [id number] [place] [address] May, [facility] [address] [id number] [place] [address] May, [facility] [address] [id number] [place] [address] May, [facility] [address] [id number] [place] [address] May, [facility] [address] [id number] [place] [address] May, [facility] [address] [address] [id number] [place] [address] May, [facility] [address] [id number] [place] [address] Apr, [facility] [address] [id number] [place] [address] Apr, [facility] [address] [id number] [place] [address] Apr, [facility] [place] [facility] [address] [id number] [place] [address] Apr, [facility] [place] [facility] [address] [id number] [place] [address] Apr, [facility] [place] [facility] [address] [id number] [place] [address] Apr, [facility] [place] [facility] [address] [id number] [place] [address] Apr, [facility] [place] [facility] [address] [id number] [place] [address] Apr, [facility] [place] [facility] [address] [id number], [place] [address] Mar, [facility] [place] [facility] [address] [id number] [place] [address] Mar, [facility] [place] [facility] [address] [id number], [place] [address] Mar, [facility] [place] [facility] [address] [id number] [place] [address] Mar, [facility] [place] [facility] [address] [id number] [place] [address]394 Feb, [facility] [place] [facility] [address] [id number], [place] [address] Feb, [facility] [place] [facility] [address] [id number], [place] [address] Feb, [facility] [place] [facility] [address] [id number] [address] Feb, [facility] [place] [facility] [address] [id number], [place] [address] Feb, [facility] [place] [facility] [address] [id number], [place] [address] Feb, [facility] [place] [facility] [address] [id number] [address] Feb, [facility] [place] [facility] [address] [id number], [place] [address] Feb, [facility] [place] [facility] [address] [id number][place] [address] Jan, [facility] [place] [facility] [address] [id number], [place] [address] Oct, [facility] [place] [facility] [address] [id number] [place] [address] September, [facility] [address] [id number] [place] [address] Jun, [facility] [place] [facility] [address] [id number] [place] [address]226 Jun, [facility] [place] [facility] [address] [id number] [place] [address] 9636 Jun, [facility] [place] [facility] [address] [id number] [place] [address] 2546 Jun, [facility] [place] [facility] [address] [id number] [place] [address] May, [facility] [place] [facility] [address] [id number] [place] [address] Apr, [facility] [place] [facility] [address] [id number] [place] [address] Apr, [facility] [address] [id number] [place] [address]959 Apr, [facility] [place] [facility] [address] [id number] [place] [address] Apr, [facility] [address] [id number] [place] [address] Mar, [facility] [place] [facility] [address] [id number] [place] [address] 16 Mar, 2012 [facility] [place] [facility] [address] [id number] [place] [address] 07 Jan, 2012 [facility] [place] [facility] [address] [id number] [place] [address] 14 Dec, 2011 [facility] [place] [facility] [address] [id number] [place] [address] 2546 14 Dec, 2011 [facility] [place] [facility] [address] [id number] [place] [address] Dec, [facility] [place] [facility] [address] [id number] [place] [address] Dec, [facility] [place] [facility] [address] [id number] [place] [address]281 Nov, [facility] [place] [facility] [address] [id number] [place] [address] Nov, [facility] [place] [facility] [address] [id number] [place] [address] Nov, [facility] [place] [facility] [address] [id number] [place] [address]33 Nov, [facility] [place] [facility] [address] [id number] [place] [address] Aug, [facility] [place] [facility] [address] [id number] [place] [address] Aug, [facility] [place] [facility] [address] [id number] [place] [address]59 Jul, [facility] [place] [facility] [address] [id number] [place] [address] 0[address] Jul, [facility] [place] [facility] [address] [id number] [place] [address] 45[address] Jul, [facility] [place] [facility] [address] [id number] [place] [address] Jul, [facility] [place] [facility] [address] [id number] [place] [address] 0310 Jun, [facility] [place] [facility] [address] [id number] [place] [address]- 4527 Jun, [facility] [place] [facility] [address] [id number] [place] [address] 6[address] 14 Jun, 2011 [facility] [place] [facility] [address] [id number] [place] [address]- 8394 Jun, [facility] [place] [facility] [address] [id number] [place] [address]- 0981 09 Jun, 2011 [facility] [place] [facility] [address] [id number] [place] [address]887 08 Jun, 2011 [facility] [place] [facility] [address] [id number] [place] [address]- [address]46 04 Jun, 2011 [facility] [place] [facility] [address] [id number] [place] [address]326 Jun, [facility] [place] [facility] [address] [id number] [place] [address] 2540 Jun, [facility] [place] [facility] [address] [id number] [place] [address]- 2694 May, [facility] [place] [facility] [address] [id number] [place] [address] 8[address] May, [facility] [place] [facility] [address] [id number] [place] [address]- 6324 May, [facility] [place] [facility] [address] [id number] [place] [address] 6887 May, [facility] [place] [facility] [address] [facility] [id number] [place] [address] 6[address] May, [facility] [place] [facility] [address] [id number] [place] [address]- 0783 Mar, [facility] [place] [facility] [address] [id number] [place] [address]- 1717 Mar, [facility] [place] [facility] [address] [id number] [place] [address]- 2541 Mar, [facility] [place] [facility] [address] [id number] [place] [address] 2547 Mar, [facility] [place] [facility] [address] [id number] [place] [address]- 2549 Mar, [facility] [place] [facility] [address] [id number] [place] [address]- 0166 31 Feb, 2011 [facility] [place] [facility] [address] [id number] [place] [address]- 8389 19 Feb, 2011 [facility] [place] [facility] [address] [id number] [place] [address]- 5296 10 Dec, 2010 [facility] [place] [facility] [address] [facility] [id number] [place] [address]- 8746 30 Apr, 2010 [facility] [place] [facility] [address] [id number] [place] [address]- 7755 07 Apr, 2010 [facility] [place] [facility] [address] [id number] [place] [address]- 3600 Apr, [facility] [place] [facility] [address] [id number] [place] [address]- 5413 29 Feb, 2010 [facility] [place] [facility] [address] [id number] [place] [address]- 8491 Feb, [facility] [place] [facility] [address] [id number], [place] [address]- 80[address] Jul, [facility] [place] [facility] [address] [id number] [place] [address]- 8672 15 Jun, 2009 [facility] [place] [facility] [address] [id number] [place] [address]- 7625 May, [facility] [place] [facility] [address] [id number], [place] [address]- 0793 29 Apr, 2009 [facility] [place] [facility] [address] [id number], [place] [address]- [address]162 Apr, [facility] [place] [facility] [address] [id number] [place] [address]- 5526 Apr, [facility] [place] [facility] [address] [facility] [id number], [place] [address]- [address]397 Mar, [facility] [place] [facility] [address] [facility] [id number], [place] [address]- 39[address] Jul, [facility] [place] [facility] [address] [id number], [place] [address]- [address]46 16 Jun, 2008 [facility] [id number] [address] 15 Jan, 2008 [facility] [id number], [place] [address]- [address] 10 Oct, 2007 [facility] [id number], [place] [address]- [address] 13 Sep, 2007 [facility] [id number] [address]- [address] 11 Nov, 2006 [facility] [id number], [place] [address]- 89[address] 16 Sep, 2005 [facility] [id number], [place] [address]- [address] 17 Dec, 2003 [facility] [id number] [address] 10 Mar, 2003 IMMUNIZATIONS No Known Immunizations SOCIAL HISTORY Never Assessed REASON FOR VISIT EMR[place] [place] OF CARE VITAL SIGNS MEDICATIONS Unknown [...]
--- OUTSIDE RECORDS SUMMARY | 2018-09-19 09:20 | XMS REPORT ---
Author Author Migration, Doctor Organization [facility] Address Unknown Phone Unavailable Care Team Providers Care Cold Header Name Role Phone Migration, Doctor Unavailable Unavailable PROBLEMS Type Condition ICD9-CM Code [id number] Code Onset Dates Condition Status SNOMED Code Problem Bipolar disorder, unspecified F31.9 Active [id number] ALLERGIES No Information ENCOUNTERS Encounter Location Date Diagnosis [place] [id number] [place] [address] 13069- 0570 Jul, [place] [id number] [place] [address] 59236- 1648 Jul, Fundal height low for dates in third trimester O26.843 ; Third trimester Z34.93 ; Non-recurrent acute suppurative otitis media of right ear without spontaneous rupture of tympanic membrane H66.001 and 29 weeks gestation of Z3A.29 [place] [id number] [place] [address] 49095- 7497 Jun, Third trimester Z34.93 ; Non-recurrent acute suppurative otitis media of right ear without spontaneous rupture of tympanic membrane H66.001 ; 29 weeks gestation of Z3A.29 and Fundal height low for dates in third trimester O26.843 [place] [id number] [place] [address] 00915- 0410 Jun, Second trimester Z34.92 ; 27 weeks gestation of Z3A.27 and Encounter for immunization Z23 [place] [id number] [place] [address] 76494- 8142 May, Second trimester Z34.92 ; Normal in multigravida Z34.80 and Vomiting during O21.9 [place] [id number] [place] [address] 41468- 0572 May, Normal in multigravida Z34.80 [facility] [id number] [place] [address] 75055- 5708 May, Vomiting during O21.9 [facility] [id number] [place] [address] 91876- 8238 May, Second trimester Z34.92 and 24 weeks gestation of Z3A.24 [facility] [id number] [place] [address] 80598- 7949 May, [facility] [id number] [place] [address] 83852- 4634 Apr, Second trimester Z34.92 and 19 weeks gestation of Z3A.19 [facility] [id number] [place] [address] 41567- 1448 Apr, Second trimester Z34.92 and 19 weeks gestation of Z3A.19 [facility] [id number] [place] [address] 35748 -6174 Apr, Acute nasopharyngitis J00 and Sore throat J02.9 [facility] [id number] [place] [address] 64521- 8913 Apr, [facility] [id number] [place] [address] 49784- 4656 Apr, [facility] [id number] [place] [address] 19696- 8042 Apr, [facility] [id number] [place] [address] 57503- 0025 Feb, First trimester Z34.91 and 10 weeks gestation of Z3A.10 [facility] [id number] [place] [address] 24606- 0766 Jan, [facility] [id number] [place] [address] 38325- 7869 Jan, [facility] [id number] [place] [address] 10631- 6436 17 Jan, 2018 Normal in multigravida Z34.80 and 9 weeks gestation of Z3A.09 [place] [address] 69422- 0934 07 Jan, 2018 [place] [address] 33243- 5148 05 Jan, 2018 Encounter for test, result unknown Z32.00 [place] [address] 49358- 6638 September, History of fainting spells of unknown cause Z91.89 [place] [address] 84971- 2599 Aug, Yeast infection involving the vagina and surrounding area B37.3 ; Bipolar disorder, unspecified F31.9 and Trichomonas vaginalis infection A59.9 [place] [address] 61861- 1842 Jun, Bipolar disorder, unspecified F31.9 [place] [address] 44285- 0126 Jun, Encounter for surveillance of injectable contraceptive Z30.42 and Bipolar disorder, unspecified F31.9 [place] [address] 12998- 6085 May, Encounter for Depo-Provera contraception Z30.42 [facility] [id number] [place] [address] 47466 -5065 Apr, Syncope, unspecified syncope type R55 [place] [address] 75160- 9596 Mar, Bipolar disorder, unspecified F31.9 and High risk medication use Z79.899 [place] [address] 08829- 1077 Feb, [place] [address] [place] [address]- 1152 Feb, Encounter for Depo-Provera contraception Z30.42 [facility] [address] 11313- 1438 Nov, Encounter for Depo-Provera contraception Z30.42 [place] [address] 20910- 5393 September, [place] [address] 24604- 4925 Aug, [place] [address] 56161- 1078 Aug, Late period N92.6 ; STD exposure Z20.2 ; control counseling Z30.09 and Encounter for Depo-Provera contraception Z30.42 [facility] [address] 80220 -0283 Jul, Body aches R52 ; Influenza A J10.1 ; Impacted cerumen of left ear H61.22 and Acute serous otitis media of left ear, recurrence not specified H65.02 [place] [address] 72661- 7879 May, [facility] [address] 34616- 0924 Apr, Encounter for female control Z30.019 ; Encounter for Depo-Provera contraception Z30.42 and Well woman exam Z01.419 [facility] [id number] [place] [address] [id number] Feb, Dental examination Z01.20 [facility] [address] [id number] Feb, Dental caries K02.9 [facility] [address] [id number] Feb, Dental examination Z01.20 [facility] [address] 79839 -0483 Dec, Bilateral impacted cerumen H61.23 ; Dizziness R42 and Nausea R11.0 [place] [address] 94721- 3005 Dec, Encounter for Depo-Provera contraception Z30.42 [place] [address] 39403- 9269 Oct, Bipolar affective disorder, currently depressed, moderate F31.32 [place] [address] 26129- 0391 September, Bipolar disorder, unspecified F31.9 [place] [address] 28418- 4905 September, Bipolar disorder, unspecified F31.9 [place] [id number] [place] [address] 82474- 4062 September, Bipolar disorder, unspecified F31.9 [place] [address] 83173- 1803 September, Encounter for Depo-Provera contraception Z30.42 [place] [id number] [place] [address] 25808- 3684 Aug, Bipolar disorder, unspecified F31.9 [place] [id number] [place] [address] 66976- 5996 Jun, Encounter for Depo-Provera contraception Z30.42 [place] [id number] [place] [address] 14201- 0218 Apr, URI (upper respiratory infection) J06.9 [place] [address] 51352- 1670 Mar, Encounter for Depo-Provera contraception Z30.42 [place] [id number] [place] [address] 07906- 5619 Mar, [place] [address] [id number] [address] 6878 Mar, Generalized anxiety disorder F41.1 and Major depressive disorder, recurrent episode, moderate F33.1 [facility] [id number] [place] [address] 337086- 4612 Jan, Esophageal reflux 530.81 ; Depression 311 and Anxiety 300.00 [facility] [id number] [place] [address] 81049- 0318 Dec, Depo-Provera contraceptive status V25.49 [facility] [id number] [place] [address] 204487- 8873 Dec, test negative V72.41 [facility] [id number] [place] [address] 72239- 5407 Oct, [facility] [id number] [place] [address] 79921- 3644 Oct, [facility] [id number] [place] [address] 81446- 0088 September, [facility] [id number] [place] [address] 69172- 5715 September, [facility] [id number] [place] [address] 80784- 0152 September, [facility] [id number] [place] [address] 24340- 5035 September, [facility] [id number] [place] [address] 54423- 8612 September, [facility] [id number] [address]- 2210 September, [facility] [id number] [place] [address] 008648- 4314 September, [facility] [id number] 6953 September, Other general counseling and advice for contraceptive management V25.09 [facility] [address] [id number] [place] [address]- 3084 September, [facility] [place] [facility] [address] [id number] [place] [address]- 7857 September, [facility] [place] [facility] [address] [id number] [place] [address]- 6517 September, [facility] [address] [id number] [place] [address]- 6822 September, [facility] [address] [id number] [place] [address]- 9539 29 Aug, 2014 [facility] [place] [facility] [address] [id number] [place] [address]- 1125 28 Aug, 2014 [facility] [address] [id number] [place] [address]- 0674 14 Aug, 2014 [facility] [address] [id number] [place] [address]- 5107 Aug, [facility] [address] [id number] [place] [address]- 8667 Jul, [facility] [place] [facility] [address] [id number] [place] [address]- 4024 27 Jul, 2014 [facility] [place] [facility] [address] [id number] [place] [address]- 9650 20 Jul, 2014 [facility] [place] [facility] [address] [id number] [place] [address]- 2865 19 Jul, 2014 [facility] [place] [facility] [address] [id number] [place] [address]- 3951 19 Jul, 2014 [facility] [place] [facility] [address] [id number] [place] [address]- 4644 18 Jul, 2014 [facility] [place] [facility] [address] [id number] [place] 6978 18 Jul, 2014 [facility] [place] [facility] [address] [id number] [place] [address]- 5097 Jun, 2014 [facility] [place] [facility] [address] [id number] [place] 6536 16 Jun, 2014 [facility] [place] [facility] [address] [id number] [place] [address]- 7506 Jun, 2014 [facility] [place] [facility] [address] [id number] [place] [address]- 4386 Jun, 2014 [facility] [place] [facility] [address] [id number] [place] [address]- 8321 Jun, 2014 [facility] [place] [facility] [address] [id number] [place] [address]- 2374 Jun, [facility] [place] [facility] [address] [id number] [place] [address]- 4665 May, [facility] [place] [facility] [address] [id number] [place] [address]- 1372 May, [facility] [place] [facility] [address] [id number] [place] [address]- 6247 Apr, [facility] [place] [facility] [address] [id number] [place] [address]- 6771 Apr, [facility] [place] [facility] [address] [id number] [place] [address]- 1365 Apr, [facility] [place] [facility] [address] [id number] [place] [address]- 7387 Apr, [facility] [place] [facility] [address] [id number] [place] [address]- 4225 Apr, [facility] [place] [facility] [address] [id number] [place] [address]- 4286 Apr, [facility] [place] [facility] [address] [id number] [place] 0668 Mar, [facility] [place] [facility] [address] [id number] [place] [address]- 3765 Mar, [facility] [place] [facility] [address] [id number] [place] [address]- 1628 14 Mar, 2014 [facility] [place] [facility] [address] [id number] [place] [address]- 6517 Mar, [facility] [place] [facility] [address] [id number] [place] [address]- 4082 Mar, [facility] [place] [facility] [address] [id number] [place] [address]- 8853 Feb, [facility] [place] [facility] [address] [id number] [place] [address]- 2331 Feb, [facility] [place] [facility] [address] [id number] [place] [address]- 9648 Feb, [facility] [place] [facility] [address] [id number] [place] [address]- 3753 Feb, [facility] [place] [facility] [address] [id number] [place] [address]- 5580 Feb, [facility] [place] [facility] [address] [id number] [place] [address]- 3417 Feb, [facility] [place] [facility] [address] [id number] [place] [address]- 0806 16 Feb, 2014 [facility] [place] [facility] [address] [id number] [place] [address]- 5513 16 Feb, 2014 [facility] [place] [facility] [address] [id number] [place] [address]- 1884 05 Sep, 2013 [facility] [place] [facility] [address] [id number] [place] [address]- 7669 05 Sep, 2013 [facility] [place] [facility] [address] [id number] [place] [address]- 6629 05 Sep, 2013 [facility] [place] [facility] [address] [id number] [place] [address]- 2901 05 Sep, 2013 [facility] [place] [facility] [address] [id number] [place] [address]- 4248 Jan, [facility] [place] [facility] [address] [id number] [place] [address]- 7048 Jan, [facility] [place] [facility] [address] [id number] [place] [address]- 4100 Jan, [facility] [place] [facility] [address] [id number] [place] [address]- 0235 Jan, [facility] [place] [facility] [address] [id number] [place] [address]- 3422 Dec, [facility] [place] [facility] [address] [id number] [place] [address]- 5095 Dec, [facility] [place] [facility] [address] [id number] [place] [address]- 3051 Dec, [facility] [place] [facility] [address] [id number] [place] [address]- 4100 Dec, [facility] [place] [facility] [address] [id number] [place] [address]- 5104 Dec, [facility] [place] [facility] [address] [id number] [place] [address]- 7588 Dec, [facility] [place] [facility] [address] [id number] [place] [address]- 1185 Dec, [facility] [place] [facility] [address] [id number] [place] [address]- 1267 Dec, [facility] [place] [facility] [address] [id number] [place] [address]- 6057 Dec, [facility] [place] [facility] [address] [id number] [place] [address]- 1111 Dec, [facility] [place] [facility] [address] [id number] [place] [address]- 0114 Dec, [facility] [place] [facility] [address] [id number] [place] [address]- 4226 Dec, [facility] [place] [facility] [address] [id number] [place] [address]- 6443 Dec, [facility] [place] [facility] [address] [id number] [place] [address]- 5154 Dec, [facility] [place] [facility] [address] [id number] [place] [address]- 0134 Dec, [facility] [place] [facility] [address] [id number] [place] [address]- 4713 Dec, [facility] [place] [facility] [address] [id number] [place] [address]- 8324 Dec, [facility] [place] [facility] [address] [id number] [place] [address]- 0722 Nov, [facility] [place] [facility] [address] [id number] [place] [address]- 9305 Nov, [facility] [place] [facility] [address] [id number] [place] [address]- 3978 Nov, [facility] [place] [facility] [address] [id number] [place] [address]- 3169 Nov, [facility] [place] [facility] [address] [id number] [place] [address]- 8988 Nov, [facility] [place] [facility] [address] [id number] [place] [address]- 8617 Nov, [facility] [place] [facility] [address] [id number] [place] [address]- 7019 Nov, [facility] [place] [facility] [address] [id number] [place] [address]- 2701 Nov, [facility] [place] [facility] [address] [id number] [place] [address]- 0787 Nov, [facility] [place] [facility] [address] [id number] [place] [address]- 7969 Oct, [facility] [place] [facility] [address] [id number] [place] [address]- 6743 Oct, [facility] [place] [facility] [address] [id number] [place] [address]- 6170 Oct, [facility] [place] [facility] [address] [id number] [place] [address]- 3498 Oct, [facility] [place] [facility] [address] [id number] [place] [address]- 0285 Oct, [facility] [place] [facility] [address] [id number] [place] [address]- 8514 Oct, [facility] [place] [facility] [address] [id number] [place] [address]- 5851 Oct, [facility] [place] [facility] [address] [id number] [place] [address]- 8211 Oct, [facility] [place] [facility] [address] [id number] [place] [address]- 1348 Oct, [facility] [place] [facility] [address] [id number] [place] [address]- 9648 Oct, [facility] [place] [facility] [address] [id number] [place] [address]- 3171 September, [facility] [place] [facility] [address] [id number] [place] [address]- 2045 September, [facility] [place] [facility] [address] [id number] [place] [address]- 3231 September, [facility] [place] [facility] [address] [id number], [place] [address]- 3273 September, [facility] [place] [facility] [address] [id number] [place] [address]- 9025 Aug, [facility] [place] [facility] [address] [id number] [place] [address]- 7329 Aug, [facility] [place] [facility] [address] [id number] [place] [address]- 9904 Aug, [facility] [place] [facility] [address] [id number] [place] [address]- 7069 Aug, [facility] [place] [facility] [address] [id number] [place] [address]- 1875 Aug, [facility] [place] [facility] [address] [id number] [place] [address]- 5376 Aug, [facility] [place] [facility] [address] [id number] [place] [address]- 8965 Aug, [facility] [place] [facility] [address] [id number] [place] [address]- 1565 Aug, [facility] [place] [facility] [address] [id number] [place] [address]- 9537 Aug, [facility] [place] [facility] [address] [id number] [place] [address]- 5830 Aug, [facility] [place] [facility] [address] [id number] [place] [address]- 5734 Aug, [facility] [place] [facility] [address] [id number] [place] [address]- 0646 Jul, [facility] [place] [facility] [address] [id number] [place] [address]- 8269 Jul, [facility] [place] [facility] [address] [id number] [place] [address]- 0736 Jul, [facility] [place] [facility] [address] [id number] [place] [address]- 6392 Jul, [facility] [place] [facility] [address] [id number] [place] [address]- 2517 Jul, [facility] [place] [facility] [address] [id number] [place] [address]- 0659 Jul, [facility] [place] [facility] [address] [id number] [place] [address]- 2705 Jun, [facility] [place] [facility] [address] [id number] [place] [address]- 4120 Jun, [facility] [place] [facility] [address] [id number] [place] [address]- 1816 Jun, [facility] [place] [facility] [address] [id number] [place] [address]- 1856 Jun, [facility] [place] [facility] [address] [id number] [place] [address]- 8006 Jun, [facility] [place] [facility] [address] [id number] [place] [address]- 9070 Jun, [facility] [place] [facility] [address] [id number] [place] [address]- 7213 Jun, [facility] [place] [facility] [address] [id number] [place] [address]- 7246 Jun, [facility] [place] [facility] [address] [facility] [id number] [place] [address]- 1782 Jun, [facility] [place] [facility] [address] [id number] [place] [address]- 4474 Jun, 2013 [facility] [place] [facility] [address] [id number] [place] [address] Jun, [facility] [place] [facility] [address] [id number] [place] [address] Jun, [facility] [place] [facility] [address] [id number] [place] [address] Jun, [facility] [place] [facility] [address] [id number] [place] [address] Jun, [facility] [place] [facility] [address] [id number] [place] [address] Jun, [facility] [place] [facility] [address] [id number] [place] [address] Jun, [facility] [place] [facility] [address] [facility] [id number] [place] [address] Jun, 2013 [facility] [place] [facility] [address] [id number] [place] [address] Jun, [facility] [place] [facility] [address] [id number] [place] [address] Jun, [facility] [place] [facility] [address] [id number] [place] [address] Jun, [facility] [place] [facility] [address] [id number] [place] [address] 1796 Jun, [facility] [place] [facility] [address] [id number] [place] [address] Jun, [facility] [place] [facility] [address] [id number] [place] [address] 118[address] May, [facility] [place] [facility] [address] [id number] [place] [address] May, [facility] [place] [facility] [address] [id number] [place] [address]- 7058 May, [facility] [place] [facility] [address] [id number] [place] [address]- 90[address] May, [facility] [place] [facility] [address] [id number] [place] [address]- 95[address] May, [facility] [place] [facility] [address] [id number] [place] [address] 110[address] May, [facility] [place] [facility] [address] [id number] [place] [address]- 2071 May, [facility] [place] [facility] [address] [id number] [place] [address]- 90[address] May, [facility] [place] [facility] [address] [id number] [place] [address]- 4768 May, [facility] [place] [facility] [address] [id number] [place] [address]- [address] 15 May, 2013 [facility] [place] [facility] [address] [id number] [place] [address]- [address] May, [facility] [address] [id number] [place] [address] May, [facility] [place] [facility] [address] [id number] [place] [address] 8656 May, [facility] [place] [facility] [address] [facility] [facility] [id number] [place] [address]- 5629 May, [facility] [place] [facility] [address] [id number] [place] [address] Apr, [facility] [place] [facility] [address] [id number] [place] [address] Apr, [facility] [place] [facility] [address] [id number] [place] [address]- [address] Apr, [facility] [place] [facility] [address] [id number] [place] [address] 48[address] Apr, [facility] [place] [facility] [address] [id number], [place] [address] Apr, [facility] [place] [facility] [address] [id number] [place] [address] 17[address] Apr, [facility] [place] [facility] [address] [facility] [facility] [id number], [place] [address] Apr, [facility] [place] [facility] [address] [id number], [place] [address]- [address] Apr, [facility] [place] [facility] [address] [id number], [place] [address] Mar, [facility] [place] [facility] [address] [id number], [place] [address] Mar, [facility] [place] [facility] [address] [id number], [place] [address] Mar, [facility] [place] [facility] [address] [facility] [facility] [id number], [place] [address] Mar, [facility] [place] [facility] [address] [id number] [place] [address] Feb, [facility] [place] [facility] [address] [id number] [place] [address]- [address] Feb, [facility] [place] [facility] [address] [id number] [place] [address] 27[address] Feb, [facility] [place] [facility] [address] [id number] [place] [address] Feb, [facility] [place] [facility] [address] [id number] [place] [address] Feb, [facility] [place] [facility] [address] [id number] [place] [address]- 94[address] Feb, [facility] [place] [facility] [address] [facility] [facility] [id number] [place] [address]- [address]199 Feb, [facility] [place] [facility] [address] [facility] [facility] [id number] [place] [address]- [address] Feb, [facility] [place] [facility] [address] [id number] [place] [address] 9[address] Jan, [facility] [place] [facility] [address] [id number] [place] [address] Oct, [facility] [place] [facility] [address] [facility] [facility] [id number] [place] [address]- 46[address] September, [facility] [place] [facility] [address] [id number] [place] [address]- 43[address] Jun, [facility] [place] [facility] [address] [facility] [facility] [id number] [place] [address] 25[address] Jun, [facility] [place] [facility] [address] [id number] [place] [address] 2546 Jun, [facility] [place] [facility] [address] [facility] [facility] [id number] [place] [address]- [address]46 Jun, [facility] [place] [facility] [address] [facility] [id number] [place] [address] May, [facility] [place] [facility] [address] [id number] [place] [address] Apr, [facility] [place] [facility] [address] [id number] [place] [address] Apr, [facility] [place] [facility] [address] [id number] [place] [address] Apr, [facility] [place] [facility] [address] [id number] [place] [address] Apr, [facility] [place] [facility] [address] [id number] [place] [address] Mar, [facility] [place] [facility] [address] [id number] [place] [address] Mar, [facility] [place] [facility] [address] [id number] [place] [address] Jan, [facility] [place] [facility] [address] [id number] [place] [address] Dec, [facility] [place] [facility] [address] [id number] [place] [address] Dec, [facility] [place] [facility] [address] [id number] [place] [address] Dec, [facility] [place] [facility] [address] [id number] [place] [address] Dec, [facility] [place] [facility] [address] [id number] [place] [address] Nov, [facility] [place] [facility] [address] [id number] [place] [address] Nov, [facility] [place] [facility] [address] [id number] [place] [address] Nov, [facility] [place] [facility] [address] [id number] [place] [address]163 Nov, [facility] [place] [facility] [address] [id number] [place] [address] Aug, [facility] [place] [facility] [address] [id number] [place] [address] Aug, [facility] [place] [facility] [address] [id number] [place] [address] Jul, [facility] [place] [facility] [address] [id number] [place] [address] Jul, [facility] [place] [facility] [address] [id number] [place] [address]- [address] Jul, [facility] [place] [facility] [address] [id number] [place] [address] Jul, [facility] [place] [facility] [address] [id number] [place] [address]- [address] 29 Jun, 2011 [facility] [place] [facility] [address] [id number] [place] [address]- [address]16 28 Jun, 2011 [facility] [place] [facility] [address] [id number] [place] [address]57 14 Jun, 2011 [facility] [place] [facility] [address] [id number] [place] [address] 13 Jun, 2011 [facility] [place] [facility] [address] [id number] [place] [address] Jun, [facility] [place] [facility] [id number] [place] [address] 08 Jun, 2011 [facility] [place] [facility] [address] [id number] [place] [address]- [address] 04 Jun, 2011 [facility] [place] [facility] [address] [id number] [place] [address]- 69[address] 02 Jun, 2011 [facility] [place] [facility] [address] [id number] [place] [address]- [address]26 Jun, [facility] [place] [facility] [address] [id number] [place] [address] May, [facility] [place] [facility] [address] [id number] [place] [address]- [address]29 May, [facility] [place] [facility] [address] [id number] [place] [address] May, [facility] [place] [facility] [address] [id number] [place] [address]- [address]148 May, [facility] [place] [facility] [address] [id number] [place] [address]- 7726 May, [facility] [place] [facility] [address] [id number] [place] [address]258 Mar, [facility] [place] [facility] [address] [id number] [place] [address] 5678 Mar, [facility] [place] [facility] [address] [id number] [place] [address]100 Mar, [facility] [place] [facility] [address] [id number] [place] [address]- 9734 Mar, [facility] [place] [facility] [address] [id number] [place] [address] Mar, [facility] [place] [facility] [address] [id number] [place] [address] Feb, [facility] [place] [facility] [address] [id number] [place] [address] Feb, [facility] [place] [facility] [address] [id number], [place] [address] Dec, [facility] [place] [facility] [address] [id number] [place] [address] Apr, [facility] [place] [facility] [address] [id number] [place] [address]- 1225 Apr, [facility] [place] [facility] [address] [id number] [place] [address]- 2790 Apr, [facility] [place] [facility] [address] [id number] [place] [address]- 6158 29 Feb, 2010 [facility] [address] [id number] [place] [address]- [address]300 11 Feb, 2010 [facility] [place] [facility] [address] [id number] [place] [address] 11 Jul, 2009 [facility] [place] [facility] [address] [id number] [place] [address]- [address]456 15 Jun, 2009 [facility] [place] [facility] [address] [id number] [place] [address]- 5801 15 May, 2009 [facility] [place] [facility] [address] [id number] [place] [address]- 5530 29 Apr, 2009 [facility] [place] [facility] [address] [id number] [place] [address]- 6628 11 Apr, 2009 [facility] [address] [id number] [place] [address]- 5172 11 Apr, 2009 [facility] [place] [facility] [address] [id number] [place] [address]- 4528 25 Mar, 2009 [facility] [place] [facility] [address] [id number] [place] [address]- 3296 11 Jul, 2008 [facility] [place] [facility] [address] [facility] [id number] [place] [address]- 5981 16 Jun, 2008 [facility] [place] [facility] [address] [id number] [place] [address]- 4432 15 Jan, 2008 [facility] [place] [facility] [address] [id number], [place] [address] 10 Oct, 2007 [facility] [place] [facility] [address] [id number] [place] [address]- 7199 13 Sep, 2007 [facility] [place] [facility] [address] [id number] [place] [address]- 2155 11 Nov, 2006 [facility] [place] [facility] [address] [id number], [place] [address] September, [facility] [address] [id number] [place] [id number] Dec, [facility] [address] [id number][place] [id number] Mar, IMMUNIZATIONS No Known Immunizations SOCIAL HISTORY Never Assessed REASON FOR VISIT EMR-[facility] [place] PLAN OF CARE VITAL SIGNS MEDICATIONS Unknown [...]
--- OUTSIDE RECORDS SUMMARY | 2018-09-19 09:37 | XMS REPORT | Continuity of Care Document ---
Author Organization Unknown Address Unknown Allergies Active Description Code Type Severity Reaction Onset Reported/Identified Relationship to Patient Clinical Status Yes Zoloft Drug Allergy N/A N/A 04/15/2009 Yes Zoloft Drug Allergy 04/15/2009 Yes prednisone Drug Allergy N/A N/A 01/27/2012 Yes prednisone Drug Allergy 01/27/2012 Yes prednisone [id number] Drug Allergy Unknown N/A 01/19/2014 Yes red dye [id number] Drug Allergy Unknown N/A 01/19/2014 Yes vancomycin [id number] Drug Allergy Mild HIVES 08/08/2014 Yes vancomycin [...] SAINZ DO 110.5 Tinea Corporis 02/04/2008 [facility] Tinea Corporis 02/04/2008 PATRICE GRANADOS A 110.5 Tinea Corporis 02/04/2008 PATRICE GRANADOS A 110.5 Tinea Corporis 02/04/2008 OTTONIEL NICOLE APRN 110.5 Tinea Corporis 02/04/2008 PATRICE GRANADOS A 110.5 Tinea Corporis 02/04/2008 PATRICE GRANADOS A 110.5 Tinea Corporis 02/04/2008 RAJOTTE CONVEYOR MECHANIC, OTTONIEL A 110.5 Tinea Corporis 02/04/2008 MELANIE CONVEYOR MECHANIC, BENSON R 110.5 Tinea Corporis 02/04/2008 [facility], PATRICE A 110.5 Tinea Corporis 02/04/2008 MELANIE CONVEYOR MECHANIC, BENSON R 110.5 Tinea Corporis 02/04/2008 MELANIE CONVEYOR MECHANIC, BENSON R 110.5 Tinea Corporis 02/04/2008 CHRIS CONROY, SAI 110.5 Tinea Corporis 02/04/2008 SAINZ DO, SHAY K 110.5 Tinea Corporis 02/04/2008 LINH CONVEYOR MECHANIC, LAZARA A 110.5 Tinea Corporis 02/04/2008 SAINZ DO, SHAY K 110.5 Tinea Corporis 02/04/2008 LINH CONVEYOR MECHANIC, LAZARA A 110.5 Tinea Corporis 02/04/2008 LINH CONVEYOR MECHANIC, LAZARA A 110.5 Tinea Corporis 02/04/2008 SAINZ [...] DO, SHAY K 110.5 Tinea Corporis 02/04/2008 ROBERTO FIGUEROA MD 110.5 Tinea Corporis 02/04/2008 LINH CONVEYOR MECHANIC, LAZARA A 110.5 Tinea Corporis 02/04/2008 LINH CONVEYOR MECHANIC, LAZARA A 110.5 Tinea Corporis 02/04/2008 SAINZ DO, SHAY K 110.5 Tinea Corporis 02/04/2008 MELANIE CONVEYOR MECHANIC, BENSON R 110.5 Tinea Corporis 02/04/2008 LINH CONVEYOR MECHANIC, LAZARA A 110.5 Tinea Corporis 02/04/2008 SAINZ DO SHAY K 110.5 Tinea Corporis 02/04/2008 MELANIE CONVEYOR MECHANIC, BENSON R 110.5 Tinea Corporis 02/04/2008 LINH CONVEYOR MECHANIC, LAZARA A 110.5 Tinea Corporis 02/04/2008 MELANIE CONVEYOR MECHANIC, BENSON R 110.5 Tinea Corporis 05/12/2008 461.9 [...] LSCS, PATRICE A 461.9 Sinusitis Acute 05/12/2008 COREY CONVEYOR MECHANIC, OTTONIEL A 461.9 Sinusitis Acute 05/12/2008 DOWELL LSCS, PATRICE A 461.9 Sinusitis Acute 05/12/2008 DOWELL LSCS, PATRICE A 461.9 Sinusitis Acute 05/12/2008 JERAMIEE CONVEYOR MECHANIC, OTTONIEL A 461.9 Sinusitis Acute 05/12/2008 MELANIE CONVEYOR MECHANIC, BENSON R 461.9 Sinusitis Acute 05/12/2008 DOWELL LSCS, PATRICE A 461.9 Sinusitis Acute 05/12/2008 MELANIE CONVEYOR MECHANIC, BENSON R 461.9 Sinusitis Acute 05/12/2008 MELANIE CONVEYOR MECHANIC, BENSON R 461.9 Sinusitis Acute 05/12/2008 SAI PEREZ MD 461.9 Sinusitis Acute 05/12/2008 SAINZ DO SHAY K 461.9 Sinusitis Acute 05/12/2008 JASON MELTON APRNIDI A 461.9 Sinusitis Acute 05/12/2008 SAINZ DO, SHAY K 461.9 Sinusitis Acute 05/12/2008 LINH CONVEYOR MECHANIC, LAZARA A 461.9 Sinusitis Acute 05/12/2008 LINH CONVEYOR MECHANIC, LAZARA A 461.9 Sinusitis Acute 05/12/2008 SAINZ [...] DO, SHAY K 461.9 Sinusitis Acute 05/12/2008 ROBERTO FIGUEROA MD 461.9 Sinusitis Acute 05/12/2008 LINH CONVEYOR MECHANIC, LAZARA A 461.9 Sinusitis Acute 05/12/2008 LINH CONVEYOR MECHANIC, LAZARA A 461.9 Sinusitis Acute 05/12/2008 SAINZ DO, SHAY K 461.9 Sinusitis Acute 05/12/2008 MELANIE CONVEYOR MECHANIC, BENSON R 461.9 Sinusitis Acute 05/12/2008 LINH CONVEYOR MECHANIC, LAZARA A 461.9 Sinusitis Acute 05/12/2008 SAINZ DO, SHAY K 461.9 Sinusitis Acute 05/12/2008 MELANIE CONVEYOR MECHANIC, BENSON R 461.9 Sinusitis Acute 05/12/2008 LINH CONVEYOR MECHANIC, LAZARA A 461.9 Sinusitis Acute 05/12/2008 MELANIE CONVEYOR MECHANIC, BENSON R 461.9 Sinusitis Acute 05/13/2008 311 [...] ATTENTION DEFICIT DISORDER WITHOUT HYPERACTIVITY 05/13/2008 CASSIDY GUSATFSON PHD 311 DEPRESSION 05/13/2008 CASSIDY GUSTAFSON PHD 314.00 ATTENTION DEFICIT DISORDER WITHOUT HYPERACTIVITY 05/13/2008 SAINZ DO, SHAY K 311 DEPRESSION 05/13/2008 SAINZ DO, SHAY K 314.00 ATTENTION DEFICIT DISORDER WITHOUT HYPERACTIVITY 05/13/2008 DOWELL LSCS, PATRICE A 311 DEPRESSION 05/13/2008 [facility] 314.00 ATTENTION DEFICIT DISORDER WITHOUT HYPERACTIVITY 05/13/2008 DOWELL CS, PATRICE A 311 DEPRESSION 05/13/2008 DOWELL CS, PATRICE A 314.00 ATTENTION DEFICIT DISORDER WITHOUT HYPERACTIVITY 05/13/2008 DOWELL LSCS, PATRICE A 311 DEPRESSION 05/13/2008 DOWELL CS, PATRICE A 314.00 ATTENTION DEFICIT DISORDER WITHOUT HYPERACTIVITY 05/13/2008 RAJOTTE CONVEYOR MECHANIC, OTTONIEL A 311 DEPRESSION 05/13/2008 RAJOTTE CONVEYOR MECHANIC, OTTONIEL A 314.00 ATTENTION DEFICIT DISORDER WITHOUT HYPERACTIVITY 05/13/2008 DOWELL LSCS, PATRICE A 311 DEPRESSION 05/13/2008 DOWELL LSCS, PATRICE A 314.00 ATTENTION DEFICIT DISORDER WITHOUT HYPERACTIVITY 05/13/2008 DOWELL LSCS, PATRICE A 311 DEPRESSION 05/13/2008 DOWELL LSCS, PATRICE A 314.00 ATTENTION DEFICIT DISORDER WITHOUT HYPERACTIVITY 05/13/2008 RAJOTTE CONVEYOR MECHANIC, OTTONIEL A 311 DEPRESSION 05/13/2008 RAJOTTE CONVEYOR MECHANIC, OTTONIEL A 314.00 ATTENTION DEFICIT DISORDER WITHOUT HYPERACTIVITY 05/13/2008 MELANIE CONVEYOR MECHANIC, BENSON R 311 DEPRESSION 05/13/2008 MELANIE CONVEYOR MECHANIC, BENSON R 314.00 ATTENTION DEFICIT DISORDER WITHOUT HYPERACTIVITY 05/13/2008 DOWELL LSCS, PATRICE A 311 DEPRESSION 05/13/2008 [facility] 314.00 ATTENTION DEFICIT DISORDER WITHOUT HYPERACTIVITY 05/13/2008 MELANIE CONVEYOR MECHANIC, BENSON R 311 DEPRESSION 05/13/2008 MELANIE CONVEYOR MECHANIC, BENSON R 314.00 ATTENTION DEFICIT DISORDER WITHOUT HYPERACTIVITY 05/13/2008 MELANIE CONVEYOR MECHANIC, BENSON R 311 DEPRESSION 05/13/2008 MELANIE CONVEYOR MECHANIC, BENSON R 314.00 ATTENTION DEFICIT DISORDER WITHOUT HYPERACTIVITY 05/13/2008 SAI PEREZ MD 311 DEPRESSION 05/13/2008 SAI PEREZ MD 314.00 ATTENTION DEFICIT DISORDER WITHOUT HYPERACTIVITY 05/13/2008 SAINZ DO, SHAY K 311 DEPRESSION 05/13/2008 SAINZ DO, SHAY K 314.00 ATTENTION DEFICIT DISORDER WITHOUT HYPERACTIVITY 05/13/2008 LINH CONVEYOR MECHANIC, LAZARA A 311 DEPRESSION 05/13/2008 LINH CONVEYOR MECHANIC, LAZARA A 314.00 ATTENTION DEFICIT DISORDER WITHOUT HYPERACTIVITY 05/13/2008 SAINZ DO, SHAY K 311 DEPRESSION 05/13/2008 SAINZ DO, SHAY K 314.00 ATTENTION DEFICIT DISORDER WITHOUT HYPERACTIVITY 05/13/2008 LINH CONVEYOR MECHANIC, LAZARA A 311 DEPRESSION 05/13/2008 LINH CONVEYOR MECHANIC, LAZARA A 314.00 ATTENTION DEFICIT DISORDER WITHOUT HYPERACTIVITY 05/13/2008 LINH CONVEYOR MECHANIC, LAZARA A 311 DEPRESSION 05/13/2008 LINH CONVEYOR MECHANIC, LAZARA A 314.00 ATTENTION DEFICIT DISORDER WITHOUT HYPERACTIVITY 05/13/2008 SAINZ DO, SHAY K 311 DEPRESSION 05/13/2008 SAINZ DO, SHAY K 314.00 ATTENTION DEFICIT DISORDER WITHOUT HYPERACTIVITY 05/13/2008 JUSTIN CONVEYOR MECHANIC, MIKE T 311 DEPRESSION 05/13/2008 JUSTIN CONVEYOR MECHANIC, MIKE T 314.00 ATTENTION DEFICIT DISORDER WITHOUT [...] ATTENTION DEFICIT DISORDER WITHOUT HYPERACTIVITY 05/13/2008 LINH CONVEYOR MECHANIC, LAZARA A 311 DEPRESSION 05/13/2008 LINH CONVEYOR MECHANIC, LAZARA A 314.00 ATTENTION DEFICIT DISORDER WITHOUT HYPERACTIVITY 05/13/2008 LINH CONVEYOR MECHANIC, LAZARA A 311 DEPRESSION 05/13/2008 LINH CONVEYOR MECHANIC, LAZARA A 314.00 ATTENTION DEFICIT DISORDER WITHOUT HYPERACTIVITY 05/13/2008 SAINZ DO, SHAY K 311 DEPRESSION 05/13/2008 SAINZ DO, SHAY K 314.00 ATTENTION DEFICIT DISORDER WITHOUT HYPERACTIVITY 05/13/2008 MELANIE CONVEYOR MECHANIC, BENSON R 311 DEPRESSION 05/13/2008 MELANIE CONVEYOR MECHANIC, BENSON R 314.00 ATTENTION DEFICIT DISORDER WITHOUT HYPERACTIVITY 05/13/2008 LINH CONVEYOR MECHANIC, LAZARA A 311 DEPRESSION 05/13/2008 LINH CONVEYOR MECHANIC, LAZARA A 314.00 ATTENTION DEFICIT DISORDER WITHOUT HYPERACTIVITY 05/13/2008 SAINZ DO, SHAY K 311 DEPRESSION 05/13/2008 SAINZ DO, SHAY K 314.00 ATTENTION DEFICIT DISORDER WITHOUT HYPERACTIVITY 05/13/2008 MELANIE CONVEYOR MECHANIC, BENSON R 311 DEPRESSION 05/13/2008 MELANIE CONVEYOR MECHANIC, BENSON R 314.00 ATTENTION DEFICIT DISORDER WITHOUT HYPERACTIVITY 05/13/2008 LINH CONVEYOR MECHANIC, LAZARA A 311 DEPRESSION 05/13/2008 LINH CONVEYOR MECHANIC, LAZARA A 314.00 ATTENTION DEFICIT DISORDER WITHOUT HYPERACTIVITY 05/13/2008 MELANIE CONVEYOR MECHANIC, BENSON R 311 DEPRESSION 05/13/2008 MELANIE CONVEYOR MECHANIC, BENSON R 314.00 ATTENTION DEFICIT DISORDER WITHOUT [...] SHAY K 300.00 ANXIETY DISORDER NOS 06/16/2008 [facility], PATRICE A 300.00 ANXIETY DISORDER NOS 06/16/2008 [facility] 300.00 ANXIETY DISORDER NOS 06/16/2008 [facility], PATRICE A 300.00 ANXIETY DISORDER NOS 06/16/2008 RAJOTTE CONVEYOR MECHANIC, OTTONIEL A 300.00 ANXIETY DISORDER NOS 06/16/2008 [facility] 300.00 ANXIETY DISORDER NOS 06/16/2008 [facility], PATRICE A 300.00 ANXIETY DISORDER NOS 06/16/2008 JERAMIEE CONVEYOR MECHANIC, OTTONIEL A 300.00 ANXIETY DISORDER NOS 06/16/2008 MELANIE BREWERN, BENSON R 300.00 ANXIETY DISORDER NOS 06/16/2008 [facility], PATRICE A 300.00 ANXIETY DISORDER NOS 06/16/2008 MELANIE CONVEYOR MECHANIC, BENSON R 300.00 ANXIETY DISORDER NOS 06/16/2008 MELANIE BREWERN, BENSON R 300.00 ANXIETY DISORDER NOS 06/16/2008 SAI PEREZ MD 300.00 ANXIETY DISORDER NOS 06/16/2008 SAINZ DO, SHAY K 300.00 ANXIETY DISORDER NOS 06/16/2008 LINH BREWERN, LAZARA A 300.00 ANXIETY DISORDER NOS 06/16/2008 SAINZ DO, SHAY K 300.00 ANXIETY DISORDER NOS 06/16/2008 LINH CONVEYOR MECHANIC, LAZARA A 300.00 ANXIETY DISORDER NOS 06/16/2008 LINH CONVEYOR MECHANIC, LAZARA A 300.00 ANXIETY DISORDER NOS 06/16/2008 [...] SHAY K 300.00 ANXIETY DISORDER NOS 06/16/2008 ASINZ DO, SHAY K 300.00 ANXIETY DISORDER NOS 06/16/2008 SAINZ DO, SHAY K 300.00 ANXIETY DISORDER NOS 06/16/2008 SAINZ DO, SHAY K 300.00 ANXIETY DISORDER NOS 06/16/2008 HENRY CONROY, ROBERTO Fernandez 300.00 ANXIETY DISORDER NOS 06/16/2008 LINH CONVEYOR MECHANIC, LAZARA A 300.00 ANXIETY DISORDER NOS 06/16/2008 LINH CONVEYOR MECHANIC, LAZARA A 300.00 ANXIETY DISORDER NOS 06/16/2008 SAINZ DO, SHAY K 300.00 ANXIETY DISORDER NOS 06/16/2008 MELANIE CONVEYOR MECHANIC, BENSON R 300.00 ANXIETY DISORDER NOS 06/16/2008 LINH CONVEYOR MECHANIC, LAZARA A 300.00 ANXIETY DISORDER NOS 06/16/2008 SAINZ DO, SHAY K 300.00 ANXIETY DISORDER NOS 06/16/2008 MELANIE CONVEYOR MECHANIC, BENSON R 300.00 ANXIETY DISORDER NOS 06/16/2008 LINH CONVEYOR MECHANIC, LAZARA A 300.00 ANXIETY DISORDER NOS 06/16/2008 MELANIE CONVEYOR MECHANIC, BENSON R 300.00 ANXIETY DISORDER NOS 07/07/2008 278.02 Overweight 07/07/2008 V20.2 Preventive Medicine New Patient Evaluation Childhood 09-2907/07/2008 278.02 Overweight 07/07/2008 V20.2 Preventive Medicine New Patient Evaluation Childhood 09-2907/07/2008 278.02 Overweight 07/07/2008 V20.2 Preventive Medicine New Patient Evaluation Childhood 09-2907/07/2008 SHAY SAINZ DO 278.02 Overweight 07/07/2008 SHAY SAINZ DO V20.2 Preventive Medicine New Patient Evaluation Childhood 09-2907/07/2008 278.02 Overweight 07/07/2008 V20.2 Preventive Medicine New Patient Evaluation Childhood 09-2907/07/2008 SHAY SAINZ DO 278.02 Overweight 07/07/2008 SHAY SAINZ DO V20.2 Preventive Medicine New Patient Evaluation Childhood 09-2907/07/2008 278.02 Overweight 07/07/2008 V20.2 Preventive Medicine New Patient Evaluation Childhood 09-2907/07/2008 278.02 Overweight 07/07/2008 V20.2 Preventive Medicine New Patient Evaluation Childhood 09-2907/07/2008 CASSIDY GUSTAFSON PHD 278.02 Overweight 07/07/2008 CASSIDY GUSTAFSON PHD V20.2 Preventive Medicine New Patient Evaluation Childhood -07/07/2008 EMELI SHAY HUGHES 278.02 Overweight 07/07/2008 SHAY SAINZ DO V20.2 Preventive Medicine New Patient Evaluation Childhood 09-2907/07/2008 [facility], PATRICE A 278.02 Overweight 07/07/2008 [facility], PATRICE A V20.2 Preventive Medicine New Patient Evaluation Childhood 09-2907/07/2008 [facility], PATRICE A 278.02 Overweight 07/07/2008 [facility], PATRICE A V20.2 Preventive Medicine New Patient Evaluation Childhood 09-2907/07/2008 [facility], PATRICE A 278.02 Overweight 07/07/2008 [facility], PATRICE A V20.2 Preventive Medicine New Patient Evaluation Childhood 09-2907/07/2008 OTTONIEL NICOLE APRN A 278.02 Overweight 07/07/2008 OTTONIEL NICOLE APRN A V20.2 Preventive Medicine New Patient Evaluation Childhood 09-2907/07/2008 [facility], PATRICE A 278.02 Overweight 07/07/2008 [facility], PATRICE A V20.2 Preventive Medicine New Patient Evaluation Childhood 09-2907/07/2008 [facility], PATRICE A 278.02 Overweight 07/07/2008 [facility], PATRICE A V20.2 Preventive Medicine New Patient Evaluation Childhood 09-2907/07/2008 OTTONIEL NICOLE APRN A 278.02 Overweight 07/07/2008 OTTONIEL NICOLE APRN A V20.2 Preventive Medicine New Patient Evaluation Childhood 09-2907/07/2008 BENSON NAVARRO APRN R 278.02 Overweight 07/07/2008 MELANIE LAN BENSON R V20.2 Preventive Medicine New Patient Evaluation Childhood 09-2907/07/2008 [facility], PATRICE A 278.02 Overweight 07/07/2008 [facility], PATRICE A V20.2 Preventive Medicine New Patient Evaluation Childhood 09-2907/07/2008 BENSON NAVARRO APRN R 278.02 Overweight 07/07/2008 BENSON NAVARRO APRN R V20.2 Preventive Medicine New Patient Evaluation Childhood 09-2907/07/2008 MELANIE CONVEYOR MECHANIC, BENSON R 278.02 Overweight 07/07/2008 MELANIE CONVEYOR MECHANIC, BENSON R V20.2 Preventive Medicine New Patient Evaluation Childhood 5-07/07/2008 SAI PEREZ MD 278.02 Overweight 07/07/2008 SAI PEREZ MD V20.2 Preventive Medicine New Patient Evaluation Childhood 5-07/07/2008 TAWNY SAINZ DOA K 278.02 Overweight 07/07/2008 TAWNY SAINZ DOA K V20.2 Preventive Medicine New Patient Evaluation Childhood 5-07/07/2008 LINH CONVEYOR MECHANIC, LAZARA A 278.02 Overweight 07/07/2008 LINH CONVEYOR MECHANIC, LAZARA A V20.2 Preventive Medicine New Patient Evaluation Childhood -07/07/2008 SHAY SAINZ DO K 278.02 Overweight 07/07/2008 TAWNY SAINZ DOA K V20.2 PREVENTIVE MEDICINE NEW PATIENT EVALUATION CHILDHOOD -07/07/2008 LINH BREWERN, LAZARA A 278.02 Overweight 07/07/2008 LINHLAZARA Fernandez APRN A V20.2 PREVENTIVE MEDICINE NEW PATIENT EVALUATION CHILDHOOD -07/07/2008 LINH BREWERN, LAZARA A 278.02 Overweight 07/07/2008 LINH EDYTA, LAZARA A V20.2 PREVENTIVE MEDICINE NEW PATIENT EVALUATION [...] TAWNY SAINZ DOA K 278.02 Overweight 07/07/2008 SAINZ DO SHAY K V20.2 PREVENTIVE MEDICINE NEW PATIENT EVALUATION CHILDHOOD -07/07/2008 TAWNY SAINZ DOA K 278.02 Overweight 07/07/2008 SHAY SAINZ DO K V20.2 PREVENTIVE MEDICINE NEW PATIENT EVALUATION CHILDHOOD 5-07/07/2008 SAINZ TAWNY HUGHESA K 278.02 Overweight 07/07/2008 TAWNY SAINZ DOA K V20.2 PREVENTIVE MEDICINE NEW PATIENT EVALUATION CHILDHOOD -07/07/2008 SAINZ TAWNY HUGHESA K 278.02 Overweight 07/07/2008 SAINZ TAWNY HUGHESA K V20.2 PREVENTIVE MEDICINE NEW PATIENT EVALUATION [...] Overweight 07/07/2008 BENSON NAVARRO APRN R V20.2 PREVENTIVE MEDICINE NEW PATIENT EVALUATION CHILDHOOD -07/07/2008 LAZARA MELTON APRN A 278.02 Overweight 07/07/2008 LAZARA MELTON APRN A V20.2 PREVENTIVE MEDICINE NEW PATIENT EVALUATION CHILDHOOD -07/07/2008 SHAY SAINZ DO K 278.02 Overweight 07/07/2008 SHAY SAINZ DO K V20.2 PREVENTIVE MEDICINE NEW PATIENT EVALUATION CHILDHOOD -07/07/2008 BENSON NAVARRO APRN R 278.02 Overweight 07/07/2008 MELANIE CONVEYOR MECHANIC, BENSON R V20.2 PREVENTIVE MEDICINE NEW PATIENT EVALUATION CHILDHOOD 5-07/07/2008 LAZARA MELTON APRN A 278.02 Overweight 07/07/2008 LAZARA MELTON APRN A V20.2 PREVENTIVE MEDICINE NEW PATIENT EVALUATION CHILDHOOD 5-07/07/2008 BENSON NAVARRO APRN R 278.02 Overweight 07/07/2008 [...] Joint Pain, Localized In The Shoulder 07/30/2008 JS FINK, CASSIDY Castillo 719.41 Joint Pain, Localized In The Shoulder 07/30/2008 TAWNY SAINZ DOA K 719.41 Joint Pain, Localized In The Shoulder 07/30/2008 [facility], PATRICE A 719.41 Joint Pain, Localized In The Shoulder 07/30/2008 [facility], PATRICE A 719.41 Joint Pain, Localized In The Shoulder 07/30/2008 [facility], PATRICE A 719.41 Joint Pain, Localized In The Shoulder 07/30/2008 OTTONIEL NICOLE APRN A 719.41 Joint Pain, Localized In The Shoulder 07/30/2008 [facility] 719.41 Joint Pain, Localized In The Shoulder 07/30/2008 [facility] 719.41 Joint Pain, Localized In The Shoulder 07/30/2008 OTTONIEL NICOLE APRN A 719.41 Joint Pain, Localized In The Shoulder 07/30/2008 BENSON NAVARRO APRN R 719.41 Joint Pain, Localized In The Shoulder 07/30/2008 [facility] 719.41 Joint Pain, Localized In The Shoulder 07/30/2008 BENSON NAVARRO APRN R 719.41 Joint Pain, Localized In The Shoulder 07/30/2008 MELANIE BREWERN, BENSON R 719.41 Joint Pain, Localized In The Shoulder 07/30/2008 CHRIS CONROY, SAI 719.41 Joint Pain, Localized In The Shoulder 07/30/2008 SAINZ DO, SHAY K 719.41 Joint Pain, Localized In The Shoulder 07/30/2008 LINH CONVEYOR MECHANIC, LAZARA A 719.41 Joint Pain, Localized In The Shoulder 07/30/2008 SAINZ DO, SHAY K 719.41 Joint Pain, Localized In The Shoulder 07/30/2008 LINH CONVEYOR MECHANIC, LAZARA A 719.41 Joint Pain, Localized In The Shoulder 07/30/2008 LINH CONVEYOR MECHANIC, LAZARA A 719.41 Joint Pain, Localized In [...] Pain, Localized In The Shoulder 07/30/2008 LINH CONVEYOR MECHANIC, LAZARA A 719.41 Joint Pain, Localized In The Shoulder 07/30/2008 LINH CONVEYOR MECHANIC, LAZARA A 719.41 Joint Pain, Localized In The Shoulder 07/30/2008 SAINZ DO, SHAY K 719.41 Joint Pain, Localized In The Shoulder 07/30/2008 MELANIE BREWERN, BENSON R 719.41 Joint Pain, Localized In The Shoulder 07/30/2008 LINH BREWERN, LAZARA A 719.41 Joint Pain, Localized In The Shoulder 07/30/2008 SHAY SAINZ DO K 719.41 Joint Pain, Localized In The Shoulder 07/30/2008 MELANIE CONVEYOR MECHANIC, BENSON R 719.41 Joint Pain, Localized In The Shoulder 07/30/2008 LINH BREWERN, LAZARA A 719.41 Joint Pain, Localized In The Shoulder 07/30/2008 MELANIE CONVEYOR MECHANIC, BENSON R 719.41 Joint Pain, Localized In [...] V05.8 Gardasil, Shingles, Other Specified Disease 09/08/2008 [facility], PATRICE A V05.8 Gardasil, Shingles, Other Specified Disease 09/08/2008 [facility] V05.8 Gardasil, Shingles, Other Specified Disease 09/08/2008 [facility], PATRICE Gonzalez V05.8 Gardasil, Shingles, Other Specified Disease 09/08/2008 OTTONIEL NICOLE APRN V05.8 Gardasil, Shingles, Other Specified Disease 09/08/2008 [facility], PATRICE Gonzalez V05.8 Gardasil, Shingles, Other Specified Disease 09/08/2008 [facility], PATRICE Gonzalez V05.8 Gardasil, Shingles, Other Specified Disease 09/08/2008 OTTONIEL NICOLE APRN V05.8 Gardasil, Shingles, Other Specified Disease 09/08/2008 MELANIE CONVEYOR MECHANIC, BENSON R V05.8 Gardasil, Shingles, Other Specified Disease 09/08/2008 [facility], PATRICE Gonzalez V05.8 Gardasil, Shingles, Other Specified Disease 09/08/2008 MELANIE CONVEYOR MECHANIC, BENSON R V05.8 Gardasil, Shingles, Other Specified Disease 09/08/2008 MELANIE CONVEYOR MECHANIC, BENSON R V05.8 Gardasil, Shingles, Other Specified Disease 09/08/2008 SAI PEREZ MD V05.8 Gardasil, Shingles, Other Specified Disease 09/08/2008 SAINZ DO, SHAY Monroe V05.8 Gardasil, Shingles, Other Specified Disease 09/08/2008 LAZARA MELTON APRN V05.8 Gardasil, Shingles, Other Specified Disease 09/08/2008 SAINZ DO, SHAY K V05.8 Gardasil, Shingles, Other Specified Disease 09/08/2008 LAZARA MELTON APRN V05.8 Gardasil, Shingles, Other Specified Disease 09/08/2008 LAZARA MELTON APRN A V05.8 Gardasil, Shingles, Other Specified Disease [...] Shingles, Other Specified Disease 09/08/2008 SAINZ DOSHAY K V05.8 Gardasil, Shingles, Other Specified Disease 09/08/2008 SAINZ DOSHAY K V05.8 Gardasil, Shingles, Other Specified Disease 09/08/2008 SAINZ DOSHAY K V05.8 Gardasil, Shingles, Other Specified Disease 09/08/2008 HENRY CONROY, ROBERTO Fernandez V05.8 Gardasil, Shingles, Other Specified Disease 09/08/2008 LINH CONVEYOR MECHANIC, LAZARA A V05.8 Gardasil, Shingles, Other Specified Disease 09/08/2008 LINH CONVEYOR MECHANIC, LAZARA A V05.8 Gardasil, Shingles, Other Specified Disease 09/08/2008 SHAY SAINZ DO K V05.8 Gardasil, Shingles, Other Specified Disease 09/08/2008 MELANIE BREWERN, BENSON R V05.8 Gardasil, Shingles, Other Specified Disease 09/08/2008 LINH CONVEYOR MECHANIC, LAZARA A V05.8 Gardasil, Shingles, Other Specified Disease 09/08/2008 SHAY SAINZ DO K V05.8 Gardasil, Shingles, Other Specified Disease 09/08/2008 MELANIE BREWERN, BENSON R V05.8 Gardasil, Shingles, Other Specified Disease 09/08/2008 LINH CONVEYOR MECHANIC, LAZARA A V05.8 Gardasil, Shingles, Other Specified Disease 09/08/2008 MELANIE BREWERN, BENSON R V05.8 Gardasil, Shingles, Other Specified Disease 04/15/2009 296.00 BIPOLAR DISORDER 04/15/2009 V58.69 taking high- risk medication 04/15/2009 296.00 BIPOLAR DISORDER 04/15/2009 V58.69 taking high- risk medication 04/15/2009 296.00 BIPOLAR DISORDER 04/15/2009 V58.69 taking high- risk medication 04/15/2009 SHAY SAINZ DO 296.00 BIPOLAR DISORDER 04/15/2009 SHAY SAINZ DO V58.69 taking high-risk medication 04/15/2009 296.00 BIPOLAR DISORDER 04/15/2009 V58.69 taking high- risk medication 04/15/2009 SHAY SAINZ DO K 296.00 BIPOLAR DISORDER 04/15/2009 TAWNY SAINZ DOA K V58.69 taking high-risk medication 04/15/2009 296.00 BIPOLAR DISORDER 04/15/2009 V58.69 taking high- risk medication 04/15/2009 296.00 BIPOLAR DISORDER 04/15/2009 V58.69 taking high- risk medication 04/15/2009 CASSIDY GUSTAFSON PHD 296.00 BIPOLAR DISORDER 04/15/2009 CASSIDY GUSTAFSON PHD V58.69 taking high-risk medication 04/15/2009 EMELI HUGHES SHAY K 296.00 BIPOLAR DISORDER 04/15/2009 EMELI HUGHESTAWNYA K V58.69 taking high-risk medication 04/15/2009 [facility], PATRICE A 296.00 BIPOLAR DISORDER 04/15/2009 [facility], PATRICE A V58.69 taking high-risk medication 04/15/2009 [facility], PATRICE A 296.00 BIPOLAR DISORDER 04/15/2009 [facility], PATRICE A V58.69 taking high-risk medication 04/15/2009 [facility], PATRICE A 296.00 BIPOLAR DISORDER 04/15/2009 [facility], PATRICE A V58.69 taking high-risk medication 04/15/2009 [employer], OTTONIEL A 296.00 BIPOLAR DISORDER 04/15/2009 [employer], OTTONIEL A V58.69 taking high-risk medication 04/15/2009 [facility], PATRICE A 296.00 BIPOLAR DISORDER 04/15/2009 [facility], PATRICE A V58.69 taking high-risk medication 04/15/2009 [facility], PATRICE A 296.00 BIPOLAR DISORDER 04/15/2009 [facility], PATRICE A V58.69 taking high-risk medication 04/15/2009 [employer], OTTONIEL A 296.00 BIPOLAR DISORDER 04/15/2009 [employer], OTTONIEL A V58.69 taking high-risk medication 04/15/2009 MELANIE LAN, BENSON R 296.00 BIPOLAR DISORDER 04/15/2009 [employer]IE [employer], BENSON R V58.69 taking high-risk medication 04/15/2009 [facility], PATRICE A 296.00 BIPOLAR DISORDER 04/15/2009 [facility], PATRICE A V58.69 taking high-risk medication 04/15/2009 [employer]ANIE [employer], BENSON R 296.00 BIPOLAR DISORDER 04/15/2009 [employer]IE [employer], BENSON R V58.69 taking high-risk medication 04/15/2009 [employer]IE [employer], BENSON R 296.00 BIPOLAR DISORDER 04/15/2009 [employer], BENSON R V58.69 taking high-risk medication 04/15/2009 SAI PEREZ MD 296.00 BIPOLAR DISORDER 04/15/2009 SAI PEREZ MD V58.69 taking high-risk medication 04/15/2009 SAINZ DO, SHAY K 296.00 BIPOLAR DISORDER 04/15/2009 SAINZ DO, SHAY K V58.69 taking high-risk medication 04/15/2009 [employer], LAZARA A 296.00 BIPOLAR DISORDER 04/15/2009 LINH CONVEYOR MECHANIC, LAZARA A V58.69 taking high-risk medication 04/15/2009 SAINZ DO, SHAY K 296.00 BIPOLAR DISORDER 04/15/2009 SAINZ DO, SHAY K V58.69 taking high-risk medication 04/15/2009 LINH CONVEYOR MECHANIC, LAZARA A 296.00 BIPOLAR DISORDER 04/15/2009 LINH CONVEYOR MECHANIC, LAZARA A V58.69 taking high-risk medication 04/15/2009 LINH CONVEYOR MECHANIC, LAZARA A 296.00 BIPOLAR DISORDER 04/15/2009 LINH CONVEYOR MECHANIC, LAZARA A V58.69 taking high-risk medication 04/15/2009 SAINZ DO, SHAY K 296.00 BIPOLAR DISORDER 04/15/2009 SAINZ DO, SHAY K V58.69 taking high-risk medication 04/15/2009 MIKE ANDERSON APRN 296.00 BIPOLAR DISORDER 04/15/2009 MIKE ANDERSON APRN V58.69 taking high-risk medication 04/15/2009 SAINZ DO, [...] DO, SHAY K 296.00 BIPOLAR DISORDER 04/15/2009 SANIZ DO, SHAY K V58.69 taking high-risk medication [...] SHAY K V58.69 taking high-risk medication 04/15/2009 HENRY CONROY, ROBERTO N 296.00 BIPOLAR DISORDER 04/15/2009 HENRY CONROY, ROBERTO N V58.69 taking high-risk medication 04/15/2009 LINH CONVEYOR MECHANIC, LAZARA A 296.00 BIPOLAR DISORDER 04/15/2009 LINH CONVEYOR MECHANIC, LAZARA A V58.69 taking high-risk medication 04/15/2009 LINH CONVEYOR MECHANIC, LAZARA A 296.00 BIPOLAR DISORDER 04/15/2009 LINH CONVEYOR MECHANIC, LAZARA A V58.69 taking high-risk medication 04/15/2009 SAINZ DO, SHAY K 296.00 BIPOLAR DISORDER 04/15/2009 SAINZ DO, SHAY K V58.69 taking high-risk medication 04/15/2009 MELANIE CONVEYOR MECHANIC, BENSON R 296.00 BIPOLAR DISORDER 04/15/2009 MELANIE CONVEYOR MECHANIC, BENSON R V58.69 taking high-risk medication 04/15/2009 LINH CONVEYOR MECHANIC, LAZARA A 296.00 BIPOLAR DISORDER 04/15/2009 LINH CONVEYOR MECHANIC, LAZARA A V58.69 taking high-risk medication 04/15/2009 SAINZ DO, SHAY K 296.00 BIPOLAR DISORDER 04/15/2009 SAINZ DO, SHAY K V58.69 taking high-risk medication 04/15/2009 MELANIE CONVEYOR MECHANIC, EBNSON R 296.00 BIPOLAR DISORDER 04/15/2009 MELANIE CONVEYOR MECHANIC, BENSON R V58.69 taking high-risk medication 04/15/2009 LINH CONVEYOR MECHANIC, LAZARA A 296.00 BIPOLAR DISORDER 04/15/2009 LINH CONVEYOR MECHANIC, LAZARA A V58.69 taking high-risk medication 04/15/2009 MELANIE CONVEYOR MECHANIC, BENSON R 296.00 BIPOLAR DISORDER 04/15/2009 MELANIE CONVEYOR MECHANIC, BENSON R V58.69 taking high-risk medication 06/05/2009 [...] SHAY K 465.9 Upper Respiratory Infection 06/05/2009 DOWELL LSCS, PATRICE A 465.9 Upper Respiratory Infection 06/05/2009 DOWELL LSCS, PATRICE A 465.9 Upper Respiratory Infection 06/05/2009 DOWELL LSCS, PATRICE A 465.9 Upper Respiratory Infection 06/05/2009 RAJOTTE CONVEYOR MECHANIC, OTTONIEL A 465.9 Upper Respiratory Infection 06/05/2009 DOWELL LSCS, PATRICE A 465.9 Upper Respiratory Infection 06/05/2009 DOWELL LSCS, PATRICE A 465.9 Upper Respiratory Infection 06/05/2009 RAJOTTE CONVEYOR MECHANIC, OTTONIEL A 465.9 Upper Respiratory Infection 06/05/2009 MELANIE CONVEYOR MECHANIC, BENSON R 465.9 Upper Respiratory Infection 06/05/2009 DURBIN LSCS, PATRICE A 465.9 Upper Respiratory Infection 06/05/2009 MELANIE CONVEYOR MECHANIC, BENSON R 465.9 Upper Respiratory Infection 06/05/2009 MELANIE CONVEYOR MECHANIC, BENSON R 465.9 Upper Respiratory Infection 06/05/2009 CHRIS CONROY, SAI 465.9 Upper Respiratory Infection 06/05/2009 SAINZ DO SHAY K 465.9 Upper Respiratory Infection 06/05/2009 LINH CONVEYOR MECHANIC, LAZARA A 465.9 Upper Respiratory Infection 06/05/2009 SAINZ DO, SHAY K 465.9 Upper Respiratory Infection 06/05/2009 LINH CONVEYOR MECHANIC, LAZARA A 465.9 Upper Respiratory Infection 06/05/2009 LINH CONVEYOR MECHANIC, LAZARA A 465.9 Upper Respiratory Infection 06/05/2009 SAINZ DO, SHAY K 465.9 Upper Respiratory Infection 06/05/2009 MIKE ANDERSON APRN 465.9 Upper Respiratory Infection 06/05/2009 SAINZ DO, SHAY K 465.9 Upper Respiratory Infection 06/05/2009 SAINZ DO, SHAY K 465.9 Upper Respiratory Infection 06/05/2009 SIANZ DO, SHAY K 465.9 Upper Respiratory Infection 06/05/2009 SAINZ DO, SHAY K 465.9 Upper Respiratory Infection 06/05/2009 SAINZ DO, SHAY K 465.9 Upper Respiratory Infection 06/05/2009 SAINZ DO, SHAY K 465.9 Upper Respiratory Infection 06/05/2009 SAINZ DO, SHAY K 465.9 Upper Respiratory Infection 06/05/2009 SAINZ DO, SHAY K 465.9 Upper Respiratory Infection 06/05/2009 ROBERTO FIGUEROA MD 465.9 Upper Respiratory Infection 06/05/2009 LINH CONVEYOR MECHANIC, LAZARA A 465.9 Upper Respiratory Infection 06/05/2009 LINH CONVEYOR MECHANIC, LAZARA A 465.9 Upper Respiratory Infection 06/05/2009 SAINZ DO, SHAY K 465.9 Upper Respiratory Infection 06/05/2009 MELANIE CONVEYOR MECHANIC, BENSON R 465.9 Upper Respiratory Infection 06/05/2009 LINH CONVEYOR MECHANIC, LAZARA A 465.9 Upper Respiratory Infection 06/05/2009 SAINZ DO, SHAY K 465.9 Upper Respiratory Infection 06/05/2009 MELANIE CONVEYOR MECHANIC, BENSON R 465.9 Upper Respiratory Infection 06/05/2009 LINH CONVEYOR MECHANIC, LAZARA A 465.9 Upper Respiratory Infection 06/05/2009 MELANIE CONVEYOR MECHANIC, BENSON R 465.9 Upper Respiratory Infection 06/18/2009 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 TAG WRITER 06/18/2009 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 TAG WRITER 06/18/2009 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 TAG WRITER 06/18/2009 SHAY SAINZ DO 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 TAG WRITER 06/18/2009 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 TAG WRITER 06/18/2009 SHAY SAINZ DO 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 TAG WRITER 06/18/2009 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 TAG WRITER 06/18/2009 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 TAG WRITER 06/18/2009 SJ FINK, CASSIDY Castillo 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 TAG WRITER 06/18/2009 SHAY SAINZ DO 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 TAG WRITER 06/18/2009 [facility], PATRICE A 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 TAG WRITER 06/18/2009 [facility], PATRICE A 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 TAG WRITER 06/18/2009 [facility], PATRICE A 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 TAG WRITER 06/18/2009 OTTONIEL NICOLE APRN A 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 TAG WRITER 06/18/2009 [facility], PATRICE A 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 TAG WRITER 06/18/2009 [facility], PATRICE A 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 TAG WRITER 06/18/2009 NISHANT NICOLE APRNYL A 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 TAG WRITER 06/18/2009 BENSON NAVARRO APRN R 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 TAG WRITER 06/18/2009 [facility], PATRICE A 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 TAG WRITER 06/18/2009 RALPH NAVARRO APRNINA R 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 TAG WRITER 06/18/2009 BENSON NAVARRO APRN R 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 TAG WRITER 06/18/2009 CHRIS CONROY, SAI 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 TAG WRITER 06/18/2009 SHAY SAINZ DO 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 TAG WRITER 06/18/2009 LAZARA MELTON APRN A 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 TAG WRITER 06/18/2009 SHAY SAINZ DO 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 TAG WRITER 06/18/2009 LAZARA MELTON APRN A 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 TAG WRITER 06/18/2009 LAZARA MELTON APRN A 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 TAG WRITER 06/18/2009 SHAY SAINZ DO 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 TAG WRITER 06/18/2009 MIKE ANDERSON APRN 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 TAG WRITER 06/18/2009 SHAY SAINZ DO 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 TAG WRITER 06/18/2009 SHAY SAINZ DO 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 TAG WRITER 06/18/2009 SHAY SAINZ DO 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 TAG WRITER 06/18/2009 SHAY SAINZ DO 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 TAG WRITER 06/18/2009 SHAY SAINZ DO 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 TAG WRITER 06/18/2009 SHAY SAINZ DO 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 TAG WRITER 06/18/2009 SHAY SAINZ DO 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 TAG WRITER 06/18/2009 SHAY SAINZ DO 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 TAG WRITER 06/18/2009 HENRY CONROY, ROBERTO Fernandez 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 TAG WRITER 06/18/2009 LAZARA MELTON APRN A 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 TAG WRITER 06/18/2009 JASON MELTON APRNIDI A 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 TAG WRITER 06/18/2009 SHAY SAINZ DO 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 TAG WRITER 06/18/2009 RALPH NAVARRO APRNINA R 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 TAG WRITER 06/18/2009 JASON MELTON APRNIDI A 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 TAG WRITER 06/18/2009 SHAY SAINZ DO K 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 TAG WRITER 06/18/2009 RALPH NAVARRO APRNINA R 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 TAG WRITER 06/18/2009 JASON MELTON APRNIDI A 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 TAG WRITER 06/18/2009 RALPH NAVARRO APRNINA R 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 TAG WRITER 07/06/2009 V05.3 HEPATITIS VIRAL/ALL 07/06/2009 V05.3 HEPATITIS VIRAL/ALL 07/06/2009 V05.3 HEPATITIS VIRAL/ALL 07/06/2009 SHAY SAINZ DO V05.3 HEPATITIS VIRAL/ALL 07/06/2009 V05.3 HEPATITIS VIRAL/ALL 07/06/2009 SHAY SAINZ DO V05.3 HEPATITIS VIRAL/ALL 07/06/2009 V05.3 HEPATITIS VIRAL/ALL 07/06/2009 V05.3 HEPATITIS VIRAL/ALL 07/06/2009 SJ PHD, CASSIDY Castillo V05.3 HEPATITIS VIRAL/ALL 07/06/2009 SAINZ DO, SHAY K V05.3 HEPATITIS VIRAL/ALL 07/06/2009 [facility], PATRICE A V05.3 HEPATITIS VIRAL/ALL 07/06/2009 [facility], PATRICE A V05.3 HEPATITIS VIRAL/ALL 07/06/2009 [facility], PATRICE A V05.3 HEPATITIS VIRAL/ALL 07/06/2009 RAJOTTE CONVEYOR MECHANIC, OTTONIEL A V05.3 HEPATITIS VIRAL/ALL 07/06/2009 [facility], PATRICE A V05.3 HEPATITIS VIRAL/ALL 07/06/2009 [facility], PATRICE A V05.3 HEPATITIS VIRAL/ALL 07/06/2009 RAJOTTE CONVEYOR MECHANIC, OTTONIEL A V05.3 HEPATITIS VIRAL/ALL 07/06/2009 MELANIE CONVEYOR MECHANIC, BENSON R V05.3 HEPATITIS VIRAL/ALL 07/06/2009 [facility], PATRICE A V05.3 HEPATITIS VIRAL/ALL 07/06/2009 MELANIE CONVEYOR MECHANIC, BENSON R V05.3 HEPATITIS VIRAL/ALL 07/06/2009 MELANIE CONVEYOR MECHANIC, BENSON R V05.3 HEPATITIS VIRAL/ALL 07/06/2009 CHRIS CONROY, SAI V05.3 HEPATITIS VIRAL/ALL 07/06/2009 SAINZ DO, SHAY K V05.3 HEPATITIS VIRAL/ALL 07/06/2009 LINH CONVEYOR MECHANIC, LAZARA A V05.3 HEPATITIS VIRAL/ALL 07/06/2009 SAINZ DO, SHAY K V05.3 HEPATITIS VIRAL/ALL 07/06/2009 LINH CONVEYOR MECHANIC, LAZARA A V05.3 HEPATITIS VIRAL/ALL 07/06/2009 LINH CONVEYOR MECHANIC, LAZARA A V05.3 HEPATITIS VIRAL/ALL 07/06/2009 SAINZ DO, SHAY K V05.3 HEPATITIS VIRAL/ALL 07/06/2009 JUSTIN CONVEYOR MECHANIC, MIKE Ward V05.3 HEPATITIS VIRAL/ALL 07/06/2009 SAINZ [...] V05.3 HEPATITIS VIRAL/ALL 07/06/2009 HENRY CONROY, ROBERTO Fernandez V05.3 HEPATITIS VIRAL/ALL 07/06/2009 LINH CONVEYOR MECHANIC, LAZARA A V05.3 HEPATITIS VIRAL/ALL 07/06/2009 LINH CONVEYOR MECHANIC, LAZARA A V05.3 HEPATITIS VIRAL/ALL 07/06/2009 SAINZ DO, SHAY K V05.3 HEPATITIS VIRAL/ALL 07/06/2009 MELANIE CONVEYOR MECHANIC, BENSON R V05.3 HEPATITIS VIRAL/ALL 07/06/2009 LINH CONVEYOR MECHANIC, LAZARA A V05.3 HEPATITIS VIRAL/ALL 07/06/2009 SAINZ DO, SHAY K V05.3 HEPATITIS VIRAL/ALL 07/06/2009 MELANIE CONVEYOR MECHANIC, BENSON R V05.3 HEPATITIS VIRAL/ALL 07/06/2009 LINH CONVEYOR MECHANIC, LAZARA A V05.3 HEPATITIS VIRAL/ALL 07/06/2009 MELANIE CONVEYOR MECHANIC, BENSON R V05.3 HEPATITIS VIRAL/ALL 07/23/2009 296.90 EPISODIC MOOD DISORDERS 07/23/2009 296.90 EPISODIC MOOD DISORDERS 07/23/2009 296.90 EPISODIC MOOD DISORDERS 07/23/2009 SHAY SAINZ DO 296.90 EPISODIC MOOD DISORDERS 07/23/2009 296.90 EPISODIC MOOD DISORDERS 07/23/2009 SHAY SAINZ DO 296.90 EPISODIC MOOD DISORDERS 07/23/2009 296.90 EPISODIC MOOD DISORDERS 07/23/2009 296.90 EPISODIC MOOD DISORDERS 07/23/2009 SJ PHD, CASSIDY Castillo 296.90 EPISODIC MOOD DISORDERS 07/23/2009 SHAY SAINZ DO 296.90 EPISODIC MOOD DISORDERS 07/23/2009 PATRICE GRANADOS 296.90 EPISODIC MOOD DISORDERS 07/23/2009 PATRICE GRANADOS 296.90 EPISODIC MOOD DISORDERS 07/23/2009 PATRICE GRANADOS 296.90 EPISODIC MOOD DISORDERS 07/23/2009 RAJOTTE CONVEYOR MECHANIC, OTTONIEL A 296.90 EPISODIC MOOD DISORDERS 07/23/2009 DOWELL LSCS, PATRICE A 296.90 EPISODIC MOOD DISORDERS 07/23/2009 DOWELL LSCS, PATRICE A 296.90 EPISODIC MOOD DISORDERS 07/23/2009 RAJOTTE CONVEYOR MECHANIC, OTTONIEL A 296.90 EPISODIC MOOD DISORDERS 07/23/2009 MELANIE CONVEYOR MECHANIC, BENSON R 296.90 EPISODIC MOOD DISORDERS 07/23/2009 DOWELL LSCS, PATRICE A 296.90 EPISODIC MOOD DISORDERS 07/23/2009 MELANIE CONVEYOR MECHANIC, BENSON R 296.90 EPISODIC MOOD DISORDERS 07/23/2009 MELANIE CONVEYOR MECHANIC, BENSON R 296.90 EPISODIC MOOD DISORDERS 07/23/2009 CHRIS CONROY, SAI 296.90 EPISODIC MOOD DISORDERS 07/23/2009 SAINZ DO, SHAY K 296.90 EPISODIC MOOD DISORDERS 07/23/2009 LINH CONVEYOR MECHANIC, LAZARA A 296.90 EPISODIC MOOD DISORDERS 07/23/2009 SAINZ DO, SHAY K 296.90 EPISODIC MOOD DISORDERS 07/23/2009 LINH CONVEYOR MECHANIC, LAZARA A 296.90 EPISODIC MOOD DISORDERS 07/23/2009 LINH CONVEYOR MECHANIC, LAZARA A 296.90 EPISODIC MOOD DISORDERS 07/23/2009 [...] SHAY K 296.90 EPISODIC MOOD DISORDERS 07/23/2009 HENRY CONROY, ROBERTO Fernandez 296.90 EPISODIC MOOD DISORDERS 07/23/2009 LINH CONVEYOR MECHANIC, LAZARA A 296.90 EPISODIC MOOD DISORDERS 07/23/2009 LINH CONVEYOR MECHANIC, LAZARA A 296.90 EPISODIC MOOD DISORDERS 07/23/2009 SAINZ DO, SHAY K 296.90 EPISODIC MOOD DISORDERS 07/23/2009 MELANIE CONVEYOR MECHANIC, BENSON R 296.90 EPISODIC MOOD DISORDERS 07/23/2009 LINH CONVEYOR MECHANIC, LAZARA A 296.90 EPISODIC MOOD DISORDERS 07/23/2009 SAINZ DO, SHAY K 296.90 EPISODIC MOOD DISORDERS 07/23/2009 MELANIE CONVEYOR MECHANIC, BENSON R 296.90 EPISODIC MOOD DISORDERS 07/23/2009 LINH CONVEYOR MECHANIC, LAZARA A 296.90 EPISODIC MOOD DISORDERS 07/23/2009 MELANIE CONVEYOR MECHANIC, BENSON R 296.90 EPISODIC MOOD DISORDERS 08/31/2009 296.80 MO BIPOLAR NOS 08/31/2009 296.80 MO BIPOLAR NOS 08/31/2009 296.80 MO BIPOLAR NOS 08/31/2009 SAINZ DO, SHAY K 296.80 MO BIPOLAR NOS 08/31/2009 296.80 MO BIPOLAR NOS 08/31/2009 SAINZ DO, [...] A 296.80 MO BIPOLAR NOS 08/31/2009 RAJNIMESHE CONVEYOR MECHANIC, OTTONIEL A 296.80 MO BIPOLAR NOS 08/31/2009 DOWELL LSCS, PATRICE A 296.80 MO BIPOLAR NOS 08/31/2009 DOWELL LSCS, PATRICE A 296.80 MO BIPOLAR NOS 08/31/2009 RAJOTTE CONVEYOR MECHANIC, OTTONIEL A 296.80 MO BIPOLAR NOS 08/31/2009 MELANIE CONVEYOR MECHANIC, BENSON R 296.80 MO BIPOLAR NOS 08/31/2009 DOWELL LSCS, PATRICE A 296.80 MO BIPOLAR NOS 08/31/2009 MELANIE CONVEYOR MECHANIC, BENSON R 296.80 MO BIPOLAR NOS 08/31/2009 MELANIE CONVEYOR MECHANIC, BENSON R 296.80 MO BIPOLAR NOS 08/31/2009 SAI PEREZ MD 296.80 MO BIPOLAR NOS 08/31/2009 TAWNY SAINZ DOA K 296.80 MO BIPOLAR NOS 08/31/2009 LINH LAN, LAZARA A 296.80 MO BIPOLAR NOS 08/31/2009 SAINZ DO, SHAY K 296.80 MO BIPOLAR NOS 08/31/2009 LINH CONVEYOR MECHANIC, LAZARA A 296.80 MO BIPOLAR NOS 08/31/2009 LINH CONVEYOR MECHANIC, LAZARA A 296.80 MO BIPOLAR NOS 08/31/2009 [...] SHAY K 296.80 MO BIPOLAR NOS 08/31/2009 HENRY CONROY, ROBERTO N 296.80 MO BIPOLAR NOS 08/31/2009 LINH CONVEYOR MECHANIC, LAZARA A 296.80 MO BIPOLAR NOS 08/31/2009 LINH CONVEYOR MECHANIC, LAZARA A 296.80 MO BIPOLAR NOS 08/31/2009 SAINZ DO, SHAY K 296.80 MO BIPOLAR NOS 08/31/2009 MELANIE CONVEYOR MECHANIC, BENSON R 296.80 MO BIPOLAR NOS 08/31/2009 LINH CONVEYOR MECHANIC, LAZARA A 296.80 MO BIPOLAR NOS 08/31/2009 SAINZ DO, SHAY K 296.80 MO BIPOLAR NOS 08/31/2009 MELANIE CONVEYOR MECHANIC, BENSON R 296.80 MO BIPOLAR NOS 08/31/2009 LINH CONVEYOR MECHANIC, LAZARA A 296.80 MO BIPOLAR NOS 08/31/2009 MELANIE CONVEYOR MECHANIC, BENSON R 296.80 MO BIPOLAR NOS 10/14/2009 [...] CD - ADOLESCENT ONSET TYPE 10/14/2009 SJ PHD, CASSIDY Castillo 312.82 CD - ADOLESCENT ONSET TYPE 10/14/2009 SAINZ DO, SHAY K 312.82 CD - ADOLESCENT ONSET TYPE 10/14/2009 [facility], PATRICE A 312.82 CD - ADOLESCENT ONSET TYPE 10/14/2009 [facility], PATRICE A 312.82 CD - ADOLESCENT ONSET TYPE 10/14/2009 [facility], PATRICE A 312.82 CD - ADOLESCENT ONSET TYPE 10/14/2009 RAJOTTE CONVEYOR MECHANIC, OTTONIEL A 312.82 CD - ADOLESCENT ONSET TYPE 10/14/2009 [facility], PATRICE A 312.82 CD - ADOLESCENT ONSET TYPE 10/14/2009 [facility], PATRICE A 312.82 CD - ADOLESCENT ONSET TYPE 10/14/2009 RAJOTTE CONVEYOR MECHANIC, OTTONIEL A 312.82 CD - ADOLESCENT ONSET TYPE 10/14/2009 MELANIE CONVEYOR MECHANIC, BENSON R 312.82 CD - ADOLESCENT ONSET TYPE 10/14/2009 [facility], PATRICE A 312.82 CD - ADOLESCENT ONSET TYPE 10/14/2009 MELANIE CONVEYOR MECHANIC, BENSON R 312.82 CD - ADOLESCENT ONSET TYPE 10/14/2009 MELANIE CONVEYOR MECHANIC, BENSON R 312.82 CD - ADOLESCENT ONSET TYPE 10/14/2009 CHRIS CONROY, SAI 312.82 CD - ADOLESCENT ONSET TYPE 10/14/2009 SAINZ DO, SHAY K 312.82 CD - ADOLESCENT ONSET TYPE 10/14/2009 LINH LAN, LAZARA A 312.82 CD - ADOLESCENT ONSET TYPE 10/14/2009 SAINZ DOTAWNYA K 312.82 CD - ADOLESCENT ONSET TYPE 10/14/2009 LINH CONVEYOR MECHANIC, LAZARA A 312.82 CD - ADOLESCENT ONSET TYPE 10/14/2009 LINH LAN, LAZARA A 312.82 CD - ADOLESCENT ONSET TYPE 10/14/2009 EMELI DOTAWNYA K 312.82 CD - ADOLESCENT ONSET [...] - ADOLESCENT ONSET TYPE 10/14/2009 SAINZ DO, SAHY K 312.82 CD - ADOLESCENT ONSET TYPE 10/14/2009 SAINZ DO, SHAY K 312.82 CD - ADOLESCENT ONSET TYPE 10/14/2009 SAINZ DO, SHAY K 312.82 CD - ADOLESCENT ONSET TYPE 10/14/2009 HENRY CONROY, ROBERTO Fernandez 312.82 CD - ADOLESCENT ONSET TYPE 10/14/2009 LINH CONVEYOR MECHANIC, LAZARA A 312.82 CD - ADOLESCENT ONSET TYPE 10/14/2009 LINH APRN, LAZARA A 312.82 CD - ADOLESCENT ONSET TYPE 10/14/2009 SAINZ DO, SHAY K 312.82 CD - ADOLESCENT ONSET TYPE 10/14/2009 MELANIE CONVEYOR MECHANIC, BENSON R 312.82 CD - ADOLESCENT ONSET TYPE 10/14/2009 LINH LAN, LAZARA A 312.82 CD - ADOLESCENT ONSET TYPE 10/14/2009 SAINZ DO, SHAY K 312.82 CD - ADOLESCENT ONSET TYPE 10/14/2009 MELANIE CONVEYOR MECHANIC, BENSON R 312.82 CD - ADOLESCENT ONSET TYPE 10/14/2009 LINHBRANDEN BREWERN, LAZARA A 312.82 CD - ADOLESCENT ONSET TYPE 10/14/2009 MELANIE CONVEYOR MECHANIC, BENSON R 312.82 CD - ADOLESCENT ONSET [...] CD - CHILDHOOD ONSET TYPE 10/21/2009 SJ PHD, CASSIDY Castillo 312.81 CD - CHILDHOOD ONSET TYPE 10/21/2009 TAWNY SAINZ DOA K 312.81 CD - CHILDHOOD ONSET TYPE 10/21/2009 [facility] 312.81 CD - CHILDHOOD ONSET TYPE 10/21/2009 DOWELL [facility], PATRICE A 312.81 CD - CHILDHOOD ONSET TYPE 10/21/2009 [facility], PATRICE A 312.81 CD - CHILDHOOD ONSET TYPE 10/21/2009 COREY CONVEYOR MECHANIC, OTTONIEL A 312.81 CD - CHILDHOOD ONSET TYPE 10/21/2009 [facility], PATRICE A 312.81 CD - CHILDHOOD ONSET TYPE 10/21/2009 [facility], PATRICE A 312.81 CD - CHILDHOOD ONSET TYPE 10/21/2009 COREY CONVEYOR MECHANIC, OTTONIEL A 312.81 CD - CHILDHOOD ONSET TYPE 10/21/2009 MELANIE CONVEYOR MECHANIC, BENSON R 312.81 CD - CHILDHOOD ONSET TYPE 10/21/2009 [facility], PATRICE A 312.81 CD - CHILDHOOD ONSET TYPE 10/21/2009 MELANIE CONVEYOR MECHANIC, BENSON R 312.81 CD - CHILDHOOD ONSET TYPE 10/21/2009 MELANIE CONVEYOR MECHANIC, BENSON R 312.81 CD - CHILDHOOD ONSET TYPE 10/21/2009 CHRIS CONORY, SAI 312.81 CD - CHILDHOOD ONSET TYPE 10/21/2009 SAINZ DO, SHAY K 312.81 CD - CHILDHOOD ONSET TYPE 10/21/2009 LINH LAN, LAZARA A 312.81 CD - CHILDHOOD ONSET TYPE 10/21/2009 SAINZ DO, SHAY K 312.81 CD - CHILDHOOD ONSET TYPE 10/21/2009 LINH LAN, LAZARA A 312.81 CD - CHILDHOOD ONSET TYPE 10/21/2009 LINHBRANDEN BREWERN, LAZARA A 312.81 CD - CHILDHOOD ONSET [...] 312.81 CD - CHILDHOOD ONSET TYPE 10/21/2009 HENRY CONROY, ROBERTO Fernandez 312.81 CD - CHILDHOOD ONSET TYPE 10/21/2009 LINHBRANDEN LAN, LAZARA A 312.81 CD - CHILDHOOD ONSET TYPE 10/21/2009 LINH LAN, LAZARA A 312.81 CD - CHILDHOOD ONSET TYPE 10/21/2009 SHAY SAINZ DO K 312.81 CD - CHILDHOOD ONSET TYPE 10/21/2009 MELANIE CONVEYOR MECHANIC, BENSON R 312.81 CD - CHILDHOOD ONSET TYPE 10/21/2009 LINH LAN, LAZARA A 312.81 CD - CHILDHOOD ONSET TYPE 10/21/2009 SAINZ TAWNY HUGHESA K 312.81 CD - CHILDHOOD ONSET TYPE 10/21/2009 MELANIE CONVEYOR MECHANIC, BENSON R 312.81 CD - CHILDHOOD ONSET TYPE 10/21/2009 LINH LAN LAZARA A 312.81 CD - CHILDHOOD ONSET TYPE 10/21/2009 MELANIE EDYTA, BENSON R 312.81 CD - CHILDHOOD ONSET TYPE 03/19/2010 313.81 CD OPPOSITIONAL DEFIANT 03/19/2010 313.81 CD OPPOSITIONAL DEFIANT 03/19/2010 313.81 CD OPPOSITIONAL DEFIANT 03/19/2010 SHAY SAINZ DO 313.81 CD OPPOSITIONAL DEFIANT 03/19/2010 313.81 CD OPPOSITIONAL DEFIANT 03/19/2010 SHAY SAINZ DO K 313.81 CD OPPOSITIONAL DEFIANT 03/19/2010 313.81 CD OPPOSITIONAL DEFIANT 03/19/2010 313.81 CD OPPOSITIONAL DEFIANT 03/19/2010 [facility] PHD, CASSIDY Castillo 313.81 CD OPPOSITIONAL DEFIANT 03/19/2010 SHAY SAINZ DO 313.81 CD OPPOSITIONAL DEFIANT 03/19/2010 [facility], PATRICE A 313.81 CD OPPOSITIONAL DEFIANT 03/19/2010 [facility], PATRICE A 313.81 CD OPPOSITIONAL DEFIANT 03/19/2010 [facility], PATRICE A 313.81 CD OPPOSITIONAL DEFIANT 03/19/2010 OTTONIEL NICOLE APRN A 313.81 CD OPPOSITIONAL DEFIANT 03/19/2010 [facility], PATRICE A 313.81 CD OPPOSITIONAL DEFIANT 03/19/2010 [facility] 313.81 [facility] OPPOSITIONAL DEFIANT 03/19/2010 RAJOTTE CONVEYOR MECHANIC, OTTONIEL A 313.81 CD OPPOSITIONAL DEFIANT 03/19/2010 MELANIE CONVEYOR MECHANIC, BENSON R 313.81 CD OPPOSITIONAL DEFIANT 03/19/2010 [facility], PATRICE A 313.81 CD OPPOSITIONAL DEFIANT 03/19/2010 MELANIE CONVEYOR MECHANIC, BENSON R 313.81 CD OPPOSITIONAL DEFIANT 03/19/2010 MELANIE CONVEYOR MECHANIC, BENSON R 313.81 CD OPPOSITIONAL DEFIANT 03/19/2010 CHRIS CONROY, SAI 313.81 CD OPPOSITIONAL DEFIANT 03/19/2010 SAINZ DO, SHAY K 313.81 CD OPPOSITIONAL DEFIANT 03/19/2010 LINH CONVEYOR MECHANIC, LAZARA A 313.81 CD OPPOSITIONAL DEFIANT 03/19/2010 SAINZ DO, SHAY K 313.81 CD OPPOSITIONAL DEFIANT 03/19/2010 LINH CONVEYOR MECHANIC, LAZARA A 313.81 CD OPPOSITIONAL DEFIANT 03/19/2010 LINH CONVEYOR MECHANIC, LAZARA A 313.81 CD OPPOSITIONAL DEFIANT 03/19/2010 [...] SHAY K 313.81 CD OPPOSITIONAL DEFIANT 03/19/2010 HENRY CONROY, ROBERTO Fernandez 313.81 CD OPPOSITIONAL DEFIANT 03/19/2010 LINH CONVEYOR MECHANIC, LAZARA A 313.81 CD OPPOSITIONAL DEFIANT 03/19/2010 LINH CONVEYOR MECHANIC, LAZARA A 313.81 CD OPPOSITIONAL DEFIANT 03/19/2010 SAINZ DO, SHAY K 313.81 CD OPPOSITIONAL DEFIANT 03/19/2010 MELANIE CONVEYOR MECHANIC, BENSON R 313.81 CD OPPOSITIONAL DEFIANT 03/19/2010 LINH CONVEYOR MECHANIC, LAZARA A 313.81 CD OPPOSITIONAL DEFIANT 03/19/2010 SAINZ DO, SHAY K 313.81 CD OPPOSITIONAL DEFIANT 03/19/2010 MELANIE CONVEYOR MECHANIC, BENSON R 313.81 CD OPPOSITIONAL DEFIANT 03/19/2010 LINH CONVEYOR MECHANIC, LAZARA A 313.81 CD OPPOSITIONAL DEFIANT 03/19/2010 MELANIE CONVEYOR MECHANIC, BENSON R 313.81 CD OPPOSITIONAL DEFIANT 08/16/2010 314.01 ADHD COMBINED 08/16/2010 314.01 ADHD COMBINED 08/16/2010 314.01 ADHD COMBINED 08/16/2010 SAINZ DO, SHAY K 314.01 ADHD COMBINED 08/16/2010 314.01 ADHD COMBINED 08/16/2010 SAINZ DO, SHAY K 314.01 ADHD COMBINED 08/16/2010 314.01 ADHD COMBINED 08/16/2010 314.01 ADHD COMBINED 08/16/2010 [facility] FINK, CASSIDY Castillo 314.01 ADHD COMBINED 08/16/2010 SAINZ DO SHAY K 314.01 ADHD COMBINED 08/16/2010 [facility], PATRICE A 314.01 ADHD COMBINED 08/16/2010 [facility], PATRICE A 314.01 ADHD COMBINED 08/16/2010 [facility], PATRICE A 314.01 ADHD COMBINED 08/16/2010 RAJNIMESHE CONVEYOR MECHANIC, OTTONIEL A 314.01 ADHD COMBINED 08/16/2010 [facility], PATRICE A 314.01 ADHD COMBINED 08/16/2010 [facility], PATRICE A 314.01 ADHD COMBINED 08/16/2010 RAJNIMESHE CONVEYOR MECHANIC, OTTONIEL A 314.01 ADHD COMBINED 08/16/2010 MELANIE CONVEYOR MECHANIC, BENSON R 314.01 ADHD COMBINED 08/16/2010 [facility], PATRICE A 314.01 ADHD COMBINED 08/16/2010 MELANIE CONVEYOR MECHANIC, BENSON R 314.01 ADHD COMBINED 08/16/2010 MELANIE CONVEYOR MECHANIC, BENSON R 314.01 ADHD COMBINED 08/16/2010 CHRIS CONROY, SAI 314.01 ADHD COMBINED 08/16/2010 SAINZ DO SHAY K 314.01 ADHD COMBINED 08/16/2010 LINH CONVEYOR MECHANIC, LAZARA A 314.01 ADHD COMBINED 08/16/2010 SAINZ DO SHAY K 314.01 ADHD COMBINED 08/16/2010 LINH CONVEYOR MECHANIC, LAZARA A 314.01 ADHD COMBINED 08/16/2010 LINH CONVEYOR MECHANIC, LAZARA A 314.01 ADHD COMBINED 08/16/2010 SAINZ DO, SHAY K 314.01 ADHD COMBINED 08/16/2010 JUSTIN CONVEYOR MECHANIC, MIKE Ward 314.01 ADHD COMBINED 08/16/2010 SAINZ DO, SHAY [...] ROBERTO Fernandez 314.01 ADHD COMBINED 08/16/2010 LINH CONVEYOR MECHANIC, LAZARA A 314.01 ADHD COMBINED 08/16/2010 LINH CONVEYOR MECHANIC, LAZARA A 314.01 ADHD COMBINED 08/16/2010 SAINZ DO, SHAY K 314.01 ADHD COMBINED 08/16/2010 MELANIE CONVEYOR MECHANIC, BENSON R 314.01 ADHD COMBINED 08/16/2010 LINH CONVEYOR MECHANIC, LAZARA A 314.01 ADHD COMBINED 08/16/2010 SAINZ DO, SHAY K 314.01 ADHD COMBINED 08/16/2010 MELANIE CONVEYOR MECHANIC, BENSON R 314.01 ADHD COMBINED 08/16/2010 LINH CONVEYOR MECHANIC, LAZARA A 314.01 ADHD COMBINED 08/16/2010 MELANIE CONVEYOR MECHANIC, BENSON R 314.01 ADHD COMBINED 12/29/2010 706.1 Acne 12/29/2010 V25.09 CONTRACEPTIVE COUNSELING 12/29/2010 706.1 Acne 12/29/2010 V25.09 CONTRACEPTIVE COUNSELING 12/29/2010 706.1 Acne 12/29/2010 V25.09 CONTRACEPTIVE COUNSELING 12/29/2010 TAWNY SAINZ DOA K 706.1 Acne 12/29/2010 SAINZ DO, SHAY K V25.09 CONTRACEPTIVE COUNSELING 12/29/2010 706.1 Acne 12/29/2010 V25.09 CONTRACEPTIVE COUNSELING 12/29/2010 EMELI HUGHES SHAY K 706.1 Acne 12/29/2010 SAINZ DO, SHAY Monroe V25.09 CONTRACEPTIVE COUNSELING 12/29/2010 706.1 Acne 12/29/2010 V25.09 CONTRACEPTIVE COUNSELING 12/29/2010 706.1 Acne 12/29/2010 V25.09 CONTRACEPTIVE COUNSELING 12/29/2010 SJ FINK, CASSIDY Castillo 706.1 Acne 12/29/2010 SJ FINK, [...] PATRICE A V25.09 CONTRACEPTIVE COUNSELING 12/29/2010 RAJOTTE CONVEYOR MECHANIC, OTTONIEL A 706.1 Acne 12/29/2010 RAJOTTE CONVEYOR MECHANIC, OTTONIEL A V25.09 CONTRACEPTIVE COUNSELING 12/29/2010 DOWELL LSCS, PATRICE A 706.1 Acne 12/29/2010 DOWELL LSCS, PATRICE A V25.09 CONTRACEPTIVE COUNSELING 12/29/2010 DOWELL LSCS, PATRICE A 706.1 Acne 12/29/2010 DOWELL LSCS, PATRICE A V25.09 CONTRACEPTIVE COUNSELING 12/29/2010 RAJOTTE CONVEYOR MECHANIC, OTTONIEL A 706.1 Acne 12/29/2010 RAJOTTE CONVEYOR MECHANIC, OTTONIEL A V25.09 CONTRACEPTIVE COUNSELING 12/29/2010 MELANIE CONVEYOR MECHANIC, BENSON R 706.1 Acne 12/29/2010 MELANIE CONVEYOR MECHANIC, BENSON R V25.09 CONTRACEPTIVE COUNSELING 12/29/2010 DOWELL LSCS, PATRICE A 706.1 Acne 12/29/2010 DOWELL LSCS, PATRICE A V25.09 CONTRACEPTIVE COUNSELING 12/29/2010 MELANIE CONVEYOR MECHANIC, BENSON R 706.1 Acne 12/29/2010 MELANIE CONVEYOR MECHANIC, BENSON R V25.09 CONTRACEPTIVE COUNSELING 12/29/2010 MELANIE CONVEYOR MECHANIC, BENSON R 706.1 Acne 12/29/2010 BENSON NAVARRO APRN V25.09 CONTRACEPTIVE COUNSELING 12/29/2010 SAI PEREZ MD 706.1 Acne 12/29/2010 SAI PEREZ MD V25.09 CONTRACEPTIVE COUNSELING 12/29/2010 SAINZ DO, SHAY K 706.1 Acne 12/29/2010 SAINZ DO, SHAY K V25.09 CONTRACEPTIVE COUNSELING 12/29/2010 LINH CONVEYOR MECHANIC, LAZARA A 706.1 Acne 12/29/2010 LINH CONVEYOR MECHANIC, LAZARA A V25.09 CONTRACEPTIVE COUNSELING 12/29/2010 SAINZ DO, SHAY K 706.1 Acne 12/29/2010 SAINZ DO, SHAY K V25.09 CONTRACEPTIVE COUNSELING 12/29/2010 LINH CONVEYOR MECHANIC, LAZARA A 706.1 Acne 12/29/2010 LINH CONVEYOR MECHANIC, LAZARA A V25.09 CONTRACEPTIVE COUNSELING 12/29/2010 LINH CONVEYOR MECHANIC, LAZARA A 706.1 Acne 12/29/2010 LINH CONVEYOR MECHANIC, LAZARA A V25.09 CONTRACEPTIVE COUNSELING 12/29/2010 SAINZ [...] DO, SHAY K 706.1 Acne 12/29/2010 SAINZ DO SHAY K V25.09 CONTRACEPTIVE COUNSELING 12/29/2010 SAINZ DO, SHAY K 706.1 Acne 12/29/2010 SAINZ DO, SHAY K V25.09 CONTRACEPTIVE COUNSELING 12/29/2010 ROBERTO FIGUEROA MD 706.1 Acne 12/29/2010 ROBERTO FIGUEROA MD V25.09 CONTRACEPTIVE COUNSELING 12/29/2010 LINH CONVEYOR MECHANIC, LAZARA A 706.1 Acne 12/29/2010 LINH CONVEYOR MECHANIC, LAZARA A V25.09 CONTRACEPTIVE COUNSELING 12/29/2010 LINH CONVEYOR MECHANIC, LAZARA A 706.1 Acne 12/29/2010 LINH CONVEYOR MECHANIC, LAZARA A V25.09 CONTRACEPTIVE COUNSELING 12/29/2010 SAINZ DO, SHAY K 706.1 Acne 12/29/2010 SAINZ DO, SHAY K V25.09 CONTRACEPTIVE COUNSELING 12/29/2010 MELANIE CONVEYOR MECHANIC, BENSON R 706.1 Acne 12/29/2010 MELANIE CONVEYOR MECHANIC, BENSON R V25.09 CONTRACEPTIVE COUNSELING 12/29/2010 LINH CONVEYOR MECHANIC, LAZARA A 706.1 Acne 12/29/2010 LINH CONVEYOR MECHANIC, LAZARA A V25.09 CONTRACEPTIVE COUNSELING 12/29/2010 EMELI HUGHESTAWNYA K 706.1 Acne 12/29/2010 SAINZ DO, SHAY K V25.09 CONTRACEPTIVE COUNSELING 12/29/2010 MELANIE CONVEYOR MECHANIC, BENSON R 706.1 Acne 12/29/2010 MELANIE CONVEYOR MECHANIC, BENSON R V25.09 CONTRACEPTIVE COUNSELING 12/29/2010 LINH CONVEYOR MECHANIC, LAZARA A 706.1 Acne 12/29/2010 LINH CONVEYOR MECHANIC, LAZARA A V25.09 CONTRACEPTIVE COUNSELING 12/29/2010 MELANIE CONVEYOR MECHANIC, BENSON R 706.1 Acne 12/29/2010 MELANIE CONVEYOR MECHANIC, BENSON R V25.09 CONTRACEPTIVE COUNSELING 03/24/2011 V25.49 CONTRACEPTION SURVEILLANCE (REPEAT RX) 03/24/2011 V25.49 CONTRACEPTION SURVEILLANCE (REPEAT RX) 03/24/2011 V25.49 CONTRACEPTION SURVEILLANCE (REPEAT RX) 03/24/2011 SHAY SAINZ DO V25.49 CONTRACEPTION SURVEILLANCE (REPEAT RX) 03/24/2011 V25.49 CONTRACEPTION SURVEILLANCE (REPEAT RX) 03/24/2011 SHAY SAINZ DO V25.49 CONTRACEPTION SURVEILLANCE (REPEAT RX) 03/24/2011 V25.49 CONTRACEPTION SURVEILLANCE (REPEAT RX) 03/24/2011 V25.49 CONTRACEPTION SURVEILLANCE (REPEAT RX) 03/24/2011 SJ FINK, CASSIDY Castillo V25.49 CONTRACEPTION SURVEILLANCE (REPEAT RX) 03/24/2011 SHAY SAINZ DO V25.49 CONTRACEPTION SURVEILLANCE (REPEAT RX) 03/24/2011 [facility], PATRICE Gonzalez V25.49 CONTRACEPTION SURVEILLANCE (REPEAT RX) 03/24/2011 [facility], PATRICE Gonzalez V25.49 CONTRACEPTION SURVEILLANCE (REPEAT RX) 03/24/2011 [facility], PATRICE Gonzalez V25.49 CONTRACEPTION SURVEILLANCE (REPEAT RX) 03/24/2011 OTTONIEL NICOLE APRN A V25.49 CONTRACEPTION SURVEILLANCE (REPEAT RX) 03/24/2011 [facility], PATRICE Gonzalez V25.49 CONTRACEPTION SURVEILLANCE (REPEAT RX) 03/24/2011 [facility], PATRICE Gonzalez V25.49 CONTRACEPTION SURVEILLANCE (REPEAT RX) 03/24/2011 NISHANT NICOLE APRNYL A V25.49 CONTRACEPTION SURVEILLANCE (REPEAT RX) 03/24/2011 RALPH NAVARRO APRNINA R V25.49 CONTRACEPTION SURVEILLANCE (REPEAT RX) 03/24/2011 [facility], PATRICE Gonzalez V25.49 CONTRACEPTION SURVEILLANCE (REPEAT RX) 03/24/2011 RALPH NAVARRO APRNINA R V25.49 CONTRACEPTION SURVEILLANCE (REPEAT RX) 03/24/2011 MELANIE LAN BENSON R V25.49 CONTRACEPTION SURVEILLANCE (REPEAT RX) 03/24/2011 SAI [...] DO V25.49 CONTRACEPTION SURVEILLANCE (REPEAT RX) 03/24/2011 MIKE [...] K V25.49 CONTRACEPTION SURVEILLANCE (REPEAT RX) 03/24/2011 HENRY CONROY, ROBERTO Fernandez V25.49 CONTRACEPTION SURVEILLANCE (REPEAT RX) 03/24/2011 LZAARA MELTON APRN A V25.49 CONTRACEPTION SURVEILLANCE (REPEAT RX) 03/24/2011 LAZARA MELTON APRN A V25.49 CONTRACEPTION SURVEILLANCE (REPEAT RX) 03/24/2011 SAINZ TAWNY HUGHESA K V25.49 CONTRACEPTION SURVEILLANCE (REPEAT RX) 03/24/2011 BENSON NAVARRO APRN V25.49 CONTRACEPTION SURVEILLANCE (REPEAT RX) 03/24/2011 JASON MELTON APRNIDI A V25.49 CONTRACEPTION SURVEILLANCE (REPEAT RX) 03/24/2011 TAWNY SAINZ DOA K V25.49 CONTRACEPTION SURVEILLANCE (REPEAT RX) 03/24/2011 BENSON NAVARRO APRN V25.49 CONTRACEPTION SURVEILLANCE (REPEAT RX) 03/24/2011 LAZARA MELTON APRN A V25.49 CONTRACEPTION SURVEILLANCE (REPEAT RX) 03/24/2011 RALPH NAVARRO APRNINA R V25.49 CONTRACEPTION SURVEILLANCE (REPEAT RX) 06/07/2011 [...] 388.70 Otalgia 06/07/2011 788.1 Dysuria 06/07/2011 SJ FINK, CASSIDY Castillo 381.81 Eustachian Tube Dysfunction 06/07/2011 SJ FINK, CASSIDY Castillo 388.70 Otalgia 06/07/2011 SJ FINK, CASSIDY Castillo 788.1 Dysuria 06/07/2011 SAINZ DO, SHAY K 381.81 Eustachian Tube Dysfunction 06/07/2011 SAINZ DO, SHAY K 388.70 Otalgia 06/07/2011 SAINZ DO, SHAY K 788.1 Dysuria 06/07/[address] DOW[address]LL LS, PATRICE Gonzalez 381.81 Eustachian Tube Dysfunction 06/07/2011 DOWELL LSCS, PATRICE A 388.70 Otalgia 06/07/2011 DOWELL LSCS, PATRICE A 788.1 Dysuria 06/07/2011 DOWELL NATANCSPATRICE 381.81 Eustachian Tube Dysfunction 06/07/2011 DOWELL LSCS, PATRICE A 388.70 Otalgia 06/07/2011 DOWELL LSCS, PATRICE A 788.1 Dysuria 06/07/2011 DOWELL NATANCSPATRICE 381.81 Eustachian Tube Dysfunction 06/07/2011 DOWELL NATANCS, PATRICE A 388.70 Otalgia 06/07/2011 DOWELL LSCS, PATRICE A 788.1 Dysuria 06/07/2011 RAJOTTE CONVEYOR MECHANIC, OTTONIEL A 381.81 Eustachian Tube Dysfunction 06/07/2011 RAJOTTE CONVEYOR MECHANIC, OTTONIEL A 388.70 Otalgia 06/07/2011 RAJOTTE CONVEYOR MECHANIC, OTTONIEL A 788.1 Dysuria 06/07/2011 DOWELL LSCS, PATRICE A 381.81 Eustachian Tube Dysfunction 06/07/2011 DOWELL LSCS, PATRICE A 388.70 Otalgia 06/07/2011 DOWELL LSCS, PATRICE A 788.1 Dysuria 06/07/2011 DOWELL LSCS, PATRICE A 381.81 Eustachian Tube Dysfunction 06/07/2011 DOWELL LSCS, PATRICE A 388.70 Otalgia 06/07/2011 DOWELL LSCS, PATRICE A 788.1 Dysuria 06/07/2011 COREY CONVEYOR MECHANIC, OTTONIEL A 381.81 Eustachian Tube Dysfunction 06/07/2011 COREY CONVEYOR MECHANIC, OTTONIEL A 388.70 Otalgia 06/07/2011 JERAMIEE CONVEYOR MECHANIC, OTTONIEL A 788.1 Dysuria 06/07/2011 MELANIE CONVEYOR MECHANIC, BENSON R 381.81 Eustachian Tube Dysfunction 06/07/2011 MELANIE CONVEYOR MECHANIC, BENSON R 388.70 Otalgia 06/07/2011 MELANIE CONVEYOR MECHANIC, BENSON R 788.1 Dysuria 06/07/2011 DOWELL LSCS, PATRICE A 381.81 Eustachian Tube Dysfunction 06/07/2011 DOWELL LSCS, PATRICE A 388.70 Otalgia 06/07/2011 DOWELL LSCS, PATRICE A 788.1 Dysuria 06/07/2011 MELANIE CONVEYOR MECHANIC, BENSON R 381.81 Eustachian Tube Dysfunction 06/07/2011 MELANIE CONVEYOR MECHANIC, BENSON R 388.70 Otalgia 06/07/2011 MELANIE CONVEYOR MECHANIC, BENSON R 788.1 Dysuria 06/07/2011 MELANIE CONVEYOR MECHANIC, BENSON R 381.81 Eustachian Tube Dysfunction 06/07/2011 MELANIE CONVEYOR MECHANIC, BENSON R 388.70 Otalgia 06/07/2011 MELANIE CONVEYOR MECHANIC, BENSON R 788.1 Dysuria 06/07/2011 CHRIS CONROY, SAI 381.81 Eustachian Tube Dysfunction 06/07/2011 SAI PEREZ MD 388.70 Otalgia 06/07/2011 SAI PEREZ MD 788.1 Dysuria 06/07/2011 SAINZ DO, SHAY K 381.81 Eustachian Tube Dysfunction 06/07/2011 SAINZ DO, SHAY K 388.70 Otalgia 06/07/2011 SAINZ DO, SHAY K 788.1 Dysuria 06/07/2011 LINH CONVEYOR MECHANIC LAZARA A 381.81 Eustachian Tube Dysfunction 06/07/2011 LINH CONVEYOR MECHANIC LAZARA A 388.70 Otalgia 06/07/2011 LINHJim LAN LAZARA A 788.1 Dysuria 06/07/2011 SAINZ DO, SHAY K 381.81 Eustachian Tube Dysfunction 06/07/2011 SAINZ DO, SHAY K 388.70 Otalgia 06/07/2011 SAINZ DO, SHAY K 788.1 Dysuria 06/07/2011 LINH LAN LAZARA A 381.81 Eustachian Tube Dysfunction 06/07/2011 LINH CONVEYOR MECHANIC, LAZARA A 388.70 Otalgia 06/07/2011 LINHJim LAN LAZARA A 788.1 Dysuria 06/07/2011 LINH LAN LAZARA A 381.81 Eustachian Tube Dysfunction 06/07/2011 LINH LAN LAZARA A 388.70 Otalgia 06/07/2011 LINH LAN LAZARA A 788.1 Dysuria 06/07/2011 SAINZ [...] SHAY K 788.1 Dysuria 06/07/2011 SAINZ DO, SHYA K 381.81 Eustachian Tube Dysfunction 06/07/2011 SAINZ DO, SHAY K 388.70 Otalgia 06/07/2011 SAINZ DO, SHAY K 788.1 Dysuria 06/07/2011 SAINZ DO, SHAY K 381.81 Eustachian Tube Dysfunction 06/07/2011 SAINZ DO, SHAY K 388.70 Otalgia 06/07/2011 SAINZ DO, SAHY K 788.1 Dysuria 06/07/2011 SAINZ DO, SHAY [...] 06/07/2011 ROBERTO FIGUEROA MD 788.1 Dysuria 06/07/2011 LAZARA MELTON APRN A 381.81 Eustachian Tube Dysfunction 06/07/2011 LAZARA MELTON APRN A 388.70 Otalgia 06/07/2011 LINH CONVEYOR MECHANIC, LAZARA A 788.1 Dysuria 06/07/2011 LINH LAN, LAZARA A 381.81 Eustachian Tube Dysfunction 06/07/2011 LINH LAN, LAZARA A 388.70 Otalgia 06/07/2011 LINH CONVEYOR MECHANIC, LAZARA A 788.1 Dysuria 06/07/2011 SAINZ DO, SHAY K 381.81 Eustachian Tube Dysfunction 06/07/2011 SAINZ DO, SHAY K 388.70 Otalgia 06/07/2011 SAINZ DO, SHAY K 788.1 Dysuria 06/07/2011 MELANIE LAN, BENSON R 381.81 Eustachian Tube Dysfunction 06/07/2011 MELANIE LAN, BENSON R 388.70 Otalgia 06/07/2011 MELANIE LAN BENSON R 788.1 Dysuria 06/07/2011 LINH LAN, LAZARA A 381.81 Eustachian Tube Dysfunction 06/07/2011 LINH LAN, LAZARA A 388.70 Otalgia 06/07/2011 LINH LAN, LAZARA A 788.1 Dysuria 06/07/2011 SAINZ DO, SHAY K 381.81 Eustachian Tube Dysfunction 06/07/2011 SAINZ DO, SHAY K 388.70 Otalgia 06/07/2011 SAINZ DO, SHAY K 788.1 Dysuria 06/07/2011 MELANIE LAN, BENSON R 381.81 Eustachian Tube Dysfunction 06/07/2011 MELANIE LAN, BENSON R 388.70 Otalgia 06/07/2011 MELANIE LAN BENSON R 788.1 Dysuria 06/07/2011 LINH LAN, LAZARA A 381.81 Eustachian Tube Dysfunction 06/07/2011 LINH LAN, LAZARA A 388.70 Otalgia 06/07/2011 LINH APRN, LAZARA A 788.1 Dysuria 06/07/2011 MELANIE LAN, BENSON R 381.81 Eustachian Tube Dysfunction 06/07/2011 MELANIE LAN, BENSON R 388.70 Otalgia 06/07/2011 MELANIE LAN, BENSON R 788.1 Dysuria 06/23/2011 724.2 Back Pain, Lower 06/23/2011 724.2 Back Pain, Lower 06/23/2011 724.2 Back Pain, Lower 06/23/2011 SAINZ DO, SHAY K 724.2 Back Pain, Lower 06/23/2011 724.2 Back Pain, Lower 06/23/2011 SAINZ DO, SHAY K 724.2 Back Pain, Lower 06/23/2011 724.2 Back Pain, Lower 06/23/2011 724.2 Back Pain, Lower 06/23/2011 SJ PHD, CASSIDY Castillo 724.2 Back Pain, Lower 06/23/2011 SAINZ DO, SHAY K 724.2 Back Pain, Lower 06/23/2011 DOWELL LSCS, PATRICE A 724.2 Back Pain, Lower 06/23/2011 DOWELL LSCS, PATRICE A 724.2 Back Pain, Lower 06/23/2011 DOWELL LSCS, PATRICE A 724.2 Back Pain, Lower 06/23/2011 RAJNIMESHE CONVEYOR MECHANIC, OTTONIEL A 724.2 Back Pain, Lower 06/23/2011 DOWELL LSCS, PATRICE A 724.2 Back Pain, Lower 06/23/2011 DOWELL LSCS, PATRICE A 724.2 Back Pain, Lower 06/23/2011 RAJOTTE CONVEYOR MECHANIC, OTTONIEL A 724.2 Back Pain, Lower 06/23/2011 MELANIE CONVEYOR MECHANIC, BENSON R 724.2 Back Pain, Lower 06/23/2011 DOWELL LSCS, PATRICE A 724.2 Back Pain, Lower 06/23/2011 MELANIE CONVEYOR MECHANIC, BENSON R 724.2 Back Pain, Lower 06/23/2011 MELANIE CONVEYOR MECHANIC, BENSON R 724.2 Back Pain, Lower 06/23/2011 CHRIS CONROY, SAI 724.2 Back Pain, Lower 06/23/2011 SAINZ DO, SHAY K 724.2 Back Pain, Lower 06/23/2011 LINH CONVEYOR MECHANIC, LAZARA A 724.2 Back Pain, Lower 06/23/2011 SAINZ DO, SHAY K 724.2 Back Pain, Lower 06/23/2011 LINH CONVEYOR MECHANIC, LAZARA A 724.2 Back Pain, Lower 06/23/2011 LINH CONVEYOR MECHANIC, LAZARA A 724.2 Back Pain, Lower 06/23/2011 [...] K 724.2 Back Pain, Lower 06/23/2011 HENRY CONROY, ROBERTO Fernandez 724.2 Back Pain, Lower 06/23/2011 LINH CONVEYOR MECHANIC, LAZARA A 724.2 Back Pain, Lower 06/23/2011 LINH BREWERN, LAZARA A 724.2 Back Pain, Lower 06/23/2011 SAINZ DO, SHAY K 724.2 Back Pain, Lower 06/23/2011 MELANIE CONVEYOR MECHANIC, BENSON R 724.2 Back Pain, Lower 06/23/2011 LINH BREWERN, LAZARA A 724.2 Back Pain, Lower 06/23/2011 SAINZ DO, SHAY K 724.2 Back Pain, Lower 06/23/2011 MELANIE CONVEYOR MECHANIC, BENSON R 724.2 Back Pain, Lower 06/23/2011 LINH BREWERN, LAZARA A 724.2 Back Pain, Lower 06/23/2011 MELANIE CONVEYOR MECHANIC, BENSON R 724.2 Back Pain, Lower 07/19/2011 616.10 Vaginitis Vulvovaginitis Unspecified 07/19/2011 786.05 Shortness Of Breath 07/19/2011 616.10 Vaginitis Vulvovaginitis Unspecified 07/19/2011 786.05 Shortness Of Breath 07/19/2011 616.10 Vaginitis Vulvovaginitis Unspecified 07/19/2011 786.05 Shortness Of Breath 07/19/2011 SAINZ DOTAWNYA K 616.10 Vaginitis Vulvovaginitis Unspecified 07/19/2011 SAINZ DO, SHAY K 786.05 Shortness Of Breath 07/19/2011 616.10 Vaginitis Vulvovaginitis Unspecified 07/19/2011 786.05 Shortness Of Breath 07/19/2011 SHAY SAINZ DO 616.10 Vaginitis Vulvovaginitis Unspecified 07/19/2011 SHAY SAINZ DO 786.05 Shortness Of Breath 07/19/2011 616.10 Vaginitis Vulvovaginitis Unspecified 07/19/2011 786.05 Shortness Of Breath 07/19/2011 616.10 Vaginitis Vulvovaginitis Unspecified 07/19/2011 786.05 Shortness Of Breath 07/19/2011 CASSIDY GUSTAFSON PHD 616.10 Vaginitis Vulvovaginitis Unspecified 07/19/2011 CASSIDY GUSTAFSON PHD 786.05 Shortness Of Breath 07/19/2011 SHAY SAINZ DO 616.10 Vaginitis Vulvovaginitis Unspecified 07/19/2011 SHAY SAINZ DO 786.05 Shortness Of Breath 07/19/2011 [facility], PATRICE A 616.10 Vaginitis Vulvovaginitis Unspecified 07/19/2011 [facility], PATRICE Gonzalez 786.05 Shortness Of Breath 07/19/2011 [facility], PATRICE A 616.10 Vaginitis Vulvovaginitis Unspecified 07/19/2011 [facility], PATRICE Gonzalez 786.05 Shortness Of Breath 07/19/2011 [facility], PATRICE A 616.10 Vaginitis Vulvovaginitis Unspecified 07/19/2011 [facility], PATRICE Gonzalez 786.05 Shortness Of Breath 07/19/2011 OTTONIEL NICOLE APRN A 616.10 Vaginitis Vulvovaginitis Unspecified 07/19/2011 COREY LAN OTTONIEL A 786.05 Shortness Of Breath 07/19/2011 [facility], PATRICE A 616.10 Vaginitis Vulvovaginitis Unspecified 07/19/2011 [facility], PATRICE Gonzalez 786.05 Shortness Of Breath 07/19/2011 [facility], PATRICE A 616.10 Vaginitis Vulvovaginitis Unspecified 07/19/2011 [facility], PATRICE Gonzalez 786.05 Shortness Of Breath 07/19/2011 JERAMIEE CONVEYOR MECHANIC, OTTONIEL A 616.10 Vaginitis Vulvovaginitis Unspecified 07/19/2011 JERAMIEE CONVEYOR MECHANIC, OTTONIEL A 786.05 Shortness Of Breath 07/19/2011 MELANIE CONVEYOR MECHANIC, BENSON R 616.10 Vaginitis Vulvovaginitis Unspecified 07/19/2011 MELANIE CONVEYOR MECHANIC, BENSON R 786.05 Shortness Of Breath 07/19/2011 [facility], PATRICE A 616.10 Vaginitis Vulvovaginitis Unspecified 07/19/2011 [facility], PATRICE A 786.05 Shortness Of Breath 07/19/2011 MELANIE CONVEYOR MECHANIC, BENSON R 616.10 Vaginitis Vulvovaginitis Unspecified 07/19/2011 MELANIE CONVEYOR MECHANIC, BENSON R 786.05 Shortness Of Breath 07/19/2011 MELANIE CONVEYOR MECHANIC, BENSON R 616.10 Vaginitis Vulvovaginitis Unspecified 07/19/2011 MELANIE CONVEYOR MECHANIC, BENSON R 786.05 Shortness Of Breath 07/19/2011 SAI PEREZ MD 616.10 Vaginitis Vulvovaginitis Unspecified 07/19/2011 SAI PEREZ MD 786.05 Shortness Of Breath 07/19/2011 SHAY SAINZ DO K 616.10 Vaginitis Vulvovaginitis Unspecified 07/19/2011 SHAY SAINZ DO K 786.05 Shortness Of Breath 07/19/2011 LINH APRN, LAZARA A 616.10 Vaginitis Vulvovaginitis Unspecified 07/19/2011 LINH LAN, LAZARA A 786.05 Shortness Of Breath 07/19/2011 TAWNY SAINZ DOA K 616.10 Vaginitis Vulvovaginitis Unspecified 07/19/2011 TAWNY SAINZ DOA K 786.05 Shortness Of Breath 07/19/2011 LINH CONVEYOR MECHANIC, LAZARA A 616.10 Vaginitis Vulvovaginitis Unspecified 07/19/2011 LINH CONVEYOR MECHANIC, LAZARA A 786.05 Shortness Of Breath 07/19/2011 LINHJim LAN LAZARA A 616.10 Vaginitis Vulvovaginitis Unspecified 07/19/2011 LINH CONVEYOR MECHANIC, LAZARA A 786.05 Shortness Of Breath 07/19/2011 SAINZ DO, [...] SHAY K 786.05 Shortness Of Breath 07/19/2011 ROBERTO FIGUEROA MD 616.10 Vaginitis Vulvovaginitis Unspecified 07/19/2011 ROBERTO FIGUEROA MD 786.05 Shortness Of Breath 07/19/2011 LINH CONVEYOR MECHANIC, LAZARA A 616.10 Vaginitis Vulvovaginitis Unspecified 07/19/2011 LINH CONVEYOR MECHANIC, LAZARA A 786.05 Shortness Of Breath 07/19/2011 LINH CONVEYOR MECHANIC, LAZARA A 616.10 Vaginitis Vulvovaginitis Unspecified 07/19/2011 LINH CONVEYOR MECHANIC, LAZARA A 786.05 Shortness Of Breath 07/19/2011 SHAY SAINZ DO K 616.10 Vaginitis Vulvovaginitis Unspecified 07/19/2011 SHAY SAINZ DO K 786.05 Shortness Of Breath 07/19/2011 MELANIE CONVEYOR MECHANIC, BENSON R 616.10 Vaginitis Vulvovaginitis Unspecified 07/19/2011 MELANIE CONVEYOR MECHANIC, BENSON R 786.05 Shortness Of Breath 07/19/2011 LINH CONVEYOR MECHANIC, LAZARA A 616.10 Vaginitis Vulvovaginitis Unspecified 07/19/2011 LINH CONVEYOR MECHANIC, LAZARA A 786.05 Shortness Of Breath 07/19/2011 SHAY SAINZ DO K 616.10 Vaginitis Vulvovaginitis Unspecified 07/19/2011 SHAY SAINZ DO K 786.05 Shortness Of Breath 07/19/2011 MELANIE CONVEYOR MECHANIC, BENSON R 616.10 Vaginitis Vulvovaginitis Unspecified 07/19/2011 MELANIE CONVEYOR MECHANIC, BENSON R 786.05 Shortness Of Breath 07/19/2011 LINH CONVEYOR MECHANIC, LAZARA A 616.10 Vaginitis Vulvovaginitis Unspecified 07/19/2011 LINH CONVEYOR MECHANIC, LAZARA A 786.05 Shortness Of Breath 07/19/2011 MELANIE CONVEYOR MECHANIC, BENSON R 616.10 Vaginitis Vulvovaginitis Unspecified 07/19/2011 MELANIE CONVEYOR MECHANIC, BENSON R 786.05 Shortness Of Breath 08/16/2011 079.99 Viral Syndrome 08/16/2011 462 Pharyngitis Acute 08/16/2011 079.99 Viral Syndrome 08/16/2011 462 Pharyngitis Acute 08/16/2011 079.99 Viral Syndrome 08/16/2011 462 Pharyngitis Acute 08/16/2011 SHAY SAINZ DO K 079.99 Viral Syndrome 08/16/2011 SHAY SAINZ DO K 462 Pharyngitis Acute 08/16/2011 079.99 Viral Syndrome 08/16/2011 462 Pharyngitis Acute 08/16/2011 SHAY SAINZ DO 079.99 Viral Syndrome 08/16/2011 SHAY SAINZ DO K 462 Pharyngitis Acute 08/16/2011 079.99 Viral Syndrome 08/16/2011 462 Pharyngitis Acute 08/16/2011 079.99 Viral Syndrome 08/16/2011 462 Pharyngitis Acute 08/16/2011 [facility], CASSIDY Castillo 079.99 Viral Syndrome 08/16/2011 [facility], CASSIDY Castillo 462 Pharyngitis Acute 08/16/2011 SHAY SAINZ DO 079.99 Viral Syndrome 08/16/2011 SHAY SAINZ DO 462 Pharyngitis Acute 08/16/2011 [facility], PATRICE A 079.99 Viral Syndrome 08/16/2011 [facility], PATRICE A 462 Pharyngitis Acute 08/16/2011 [facility], PATRICE A 079.99 Viral Syndrome 08/16/2011 [facility], PATRICE A 462 Pharyngitis Acute 08/16/2011 [facility], PATRICE A 079.99 Viral Syndrome 08/16/2011 [facility], PATRICE A 462 Pharyngitis Acute 08/16/2011 [employer] CON[employer]CHANIC, OTTONIEL A 079.99 Viral Syndrome 08/16/2011 [employer] CON[employer]CHANIC, OTTONIEL A 462 Pharyngitis Acute 08/16/2011 [facility], PATRICE A 079.99 Viral Syndrome 08/16/2011 [facility], PATRICE A 462 Pharyngitis Acute 08/16/2011 [facility], PATRICE A 079.99 Viral Syndrome 08/16/2011 [facility], PATRICE A 462 Pharyngitis Acute 08/16/2011 [employer]CH[employer]IC, OTTONIEL A 079.99 Viral Syndrome 08/16/2011 [employer] CONVEYOR MECHANIC, OTTONIEL A 462 Pharyngitis Acute 08/16/2011 MELANIE CONVEYOR MECHANIC, BENSON R 079.99 Viral Syndrome 08/16/2011 MELANIE CONVEYOR MECHANIC, BENSON R 462 Pharyngitis Acute 08/16/2011 [facility], PATRICE A 079.99 Viral Syndrome 08/16/2011 [facility], PATRICE A 462 Pharyngitis Acute 08/16/2011 MELANIE CONVEYOR MECHANIC, BENSON R 079.99 Viral Syndrome 08/16/2011 MELANIE CONVEYOR MECHANIC, BENSON R 462 Pharyngitis Acute 08/16/2011 MELANIE CONVEYOR MECHANIC, BENSON R 079.99 Viral Syndrome 08/16/2011 MELANIE CONVEYOR MECHANIC, BENSON R 462 Pharyngitis Acute 08/16/2011 SAI PREEZ MD 079.99 Viral Syndrome 08/16/2011 SAI PEREZ MD 462 Pharyngitis Acute 08/16/2011 SAINZ DOTAWNYA K 079.99 Viral Syndrome 08/16/2011 SAINZ DOTAWNYA K 462 Pharyngitis Acute 08/16/2011 [facility] CONVEYOR MECHANIC, LAZARA A 079.99 Viral Syndrome 08/16/2011 LIN[facility] CONVEYOR MECHANIC, LAZARA A 462 Pharyngitis Acute 08/16/2011 TAWNY SAINZ DOA K 079.99 Viral Syndrome 08/16/2011 SAINZ DOTAWNYA K 462 Pharyngitis Acute 08/16/2011 [facility] CONVEYOR MECHANIC, LAZARA A 079.99 Viral Syndrome 08/16/2011 LIN[facility] CONVEYOR MECHANIC, LAZARA A 462 Pharyngitis Acute 08/16/2011 LIN[facility] CONVEYOR MECHANIC, LAZARA A 079.99 Viral Syndrome 08/16/2011 LIN[employer] CONVEYOR MECHANIC, LAZARA A 462 Pharyngitis Acute 08/16/2011 TAWNY SAINZ DOA K 079.99 Viral Syndrome 08/16/2011 TAWNY SAINZ DOA K 462 Pharyngitis Acute 08/16/2011 MIKE ANDERSON APRN 079.99 Viral Syndrome 08/16/2011 MIKE ANDERSON APRN 462 Pharyngitis Acute 08/16/2011 SAINZ TAWNY HUGHESA K 079.99 Viral Syndrome 08/16/2011 SAINZ DOTAWNYA K 462 Pharyngitis Acute 08/16/2011 SAINZ DOTAWNYA K 079.99 Viral Syndrome 08/16/2011 SAINZ DOTAWNYA K 462 Pharyngitis Acute 08/16/2011 SAINZ TAWNY HUGHESA K 079.99 Viral Syndrome 08/16/2011 SAINZ TAWNY HUGHESA K 462 Pharyngitis Acute 08/16/2011 SAINZ DO, [...] DO, SHAY K 462 Pharyngitis Acute 08/16/2011 HENRY CONRYO, ROBERTO N 079.99 Viral Syndrome 08/16/2011 HENRY CONROY, ROBERTO Fernandez 462 Pharyngitis Acute 08/16/2011 LINH CONVEYOR MECHANIC, LAZARA A 079.99 Viral Syndrome 08/16/2011 LINH CONVEYOR MECHANIC, LAZARA A 462 Pharyngitis Acute 08/16/2011 LINH CONVEYOR MECHANIC, LAZARA A 079.99 Viral Syndrome 08/16/2011 LINH CONVEYOR MECHANIC, LAZARA A 462 Pharyngitis Acute 08/16/2011 SAINZ DO, SHAY K 079.99 Viral Syndrome 08/16/2011 SAINZ DO, SHAY K 462 Pharyngitis Acute 08/16/2011 MELANIE BREWERN, BENSON R 079.99 Viral Syndrome 08/16/2011 MELANIE BREWERN BENSON R 462 Pharyngitis Acute 08/16/2011 LINH CONVEYOR MECHANIC, LAZARA A 079.99 Viral Syndrome 08/16/2011 LINH CONVEYOR MECHANIC, LAZARA A 462 Pharyngitis Acute 08/16/2011 SAINZ DO, SHAY K 079.99 Viral Syndrome 08/16/2011 SAINZ DO, SHAY K 462 Pharyngitis Acute 08/16/2011 MELANIE BREWERN, BENSON R 079.99 Viral Syndrome 08/16/2011 MELANIE BREWERN, BENSON R 462 Pharyngitis Acute 08/16/2011 LINH CONVEYOR MECHANIC, LAZARA A 079.99 Viral Syndrome 08/16/2011 LINH [...] CASSIDY Castillo 599.0 Urinary Tract Infection 12/10/2011 SAINZ DO, SHAY K 599.0 Urinary Tract Infection 12/10/2011 DOWELL LSCS, PATRICE A 599.0 Urinary Tract Infection 12/10/2011 DOWELL LSCS, PATRICE A 599.0 Urinary Tract Infection 12/10/2011 DOWELL LSCS, PATRICE A 599.0 Urinary Tract Infection 12/10/2011 COREY LAN OTTONIEL A 599.0 Urinary Tract Infection 12/10/2011 DOWELL LSCS, PATRICE A 599.0 Urinary Tract Infection 12/10/2011 DOWELL LSCS, PATRICE A 599.0 Urinary Tract Infection 12/10/2011 COREY LAN, OTTONIEL A 599.0 Urinary Tract Infection 12/10/2011 MELANIE LAN, BENSON R 599.0 Urinary Tract Infection 12/10/2011 DOWELL LSCS, PATRICE A 599.0 Urinary Tract Infection 12/10/2011 MELANIE LAN, BENSON R 599.0 Urinary Tract Infection 12/10/2011 MELANIE LAN, BENSON R 599.0 Urinary Tract Infection 12/10/2011 SAI PEREZ MD 599.0 Urinary Tract Infection 12/10/2011 SAINZ DO, SHAY K 599.0 Urinary Tract Infection 12/10/2011 JASON MELTON APRNIDI A 599.0 Urinary Tract Infection 12/10/2011 SAINZ DO, SHAY K 599.0 Urinary Tract Infection 12/10/2011 LINH CONVEYOR MECHANIC, LAZARA A 599.0 Urinary Tract Infection 12/10/2011 LINH CONVEYOR MECHANIC, LAZARA A 599.0 Urinary Tract Infection 12/10/2011 SAINZ [...] SHAY K 599.0 Urinary Tract Infection 12/10/2011 HENRY CONROY, ROBERTO N 599.0 Urinary Tract Infection 12/10/2011 LINH LAN, LAZARA A 599.0 Urinary Tract Infection 12/10/2011 LINH LAN, LAZARA A 599.0 Urinary Tract Infection 12/10/2011 SAINZ DO, SHAY K 599.0 Urinary Tract Infection 12/10/2011 MELANIE LAN BENSON R 599.0 Urinary Tract Infection 12/10/2011 JASON MELTNO APRNIDI A 599.0 Urinary Tract Infection 12/10/2011 SAINZ DO, SHAY K 599.0 Urinary Tract Infection 12/10/2011 MELANIE LAN BENSON R 599.0 Urinary Tract Infection 12/10/2011 LINH LAN, LAZARA A 599.0 Urinary Tract Infection 12/10/2011 MELANIE [...] 477.0 ALLERGIC RHINITIS DUE TO POLLEN 04/06/2012 SJ FINK, CASSIDY Castillo 008.8 Gastroenteritis, Viral 04/06/2012 SJ FINK, CASSIDY Castillo 477.0 ALLERGIC RHINITIS DUE TO POLLEN 04/06/2012 [...] ALLERGIC RHINITIS DUE TO POLLEN 04/06/2012 RAJOTTE CONVEYOR MECHANIC, OTTONIEL A 008.8 Gastroenteritis, Viral 04/06/2012 RAJOTTE CONVEYOR MECHANIC, OTTONIEL A 477.0 ALLERGIC RHINITIS DUE TO POLLEN 04/06/2012 DOWELL LSCS, PATRICE A 008.8 Gastroenteritis, Viral 04/06/2012 DOWELL LSCS, PATRICE A 477.0 ALLERGIC RHINITIS DUE TO POLLEN 04/06/2012 DOWELL LSCS, PATRICE A 008.8 Gastroenteritis, Viral 04/06/2012 DOWELL LSCS, PATRICE A 477.0 ALLERGIC RHINITIS DUE TO POLLEN 04/06/2012 RAJOTTE CONVEYOR MECHANIC, OTTONIEL A 008.8 Gastroenteritis, Viral 04/06/2012 RAJOTTE CONVEYOR MECHANIC, OTTONIEL A 477.0 ALLERGIC RHINITIS DUE TO POLLEN 04/06/2012 MELANIE CONVEYOR MECHANIC, BENSON R 008.8 Gastroenteritis, Viral 04/06/2012 MELANIE CONVEYOR MECHANIC, BENSON R 477.0 ALLERGIC RHINITIS DUE TO POLLEN 04/06/2012 [facility], PATRICE A 008.8 Gastroenteritis, Viral 04/06/2012 [facility], PATRICE A 477.0 ALLERGIC RHINITIS DUE TO POLLEN 04/06/2012 MELANIE CONVEYOR MECHANIC, BENSON R 008.8 Gastroenteritis, Viral 04/06/2012 MELANIE CONVEYOR MECHANIC, BENSON R 477.0 ALLERGIC RHINITIS DUE TO POLLEN 04/06/2012 MELANIE CONVEYOR MECHANIC, BENSON R 008.8 Gastroenteritis, Viral 04/06/2012 MELANIE CONVEYOR MECHANIC, BENSON R 477.0 ALLERGIC RHINITIS DUE TO POLLEN 04/06/2012 SAI PEREZ MD 008.8 Gastroenteritis, Viral 04/06/2012 SAI PEREZ MD 477.0 ALLERGIC RHINITIS DUE TO POLLEN 04/06/2012 SAINZ DO, SHAY K 008.8 Gastroenteritis, Viral 04/06/2012 EMELI DO, SHAY K 477.0 ALLERGIC RHINITIS DUE TO POLLEN 04/06/2012 LINH CONVEYOR MECHANIC, LAZARA A 008.8 Gastroenteritis, Viral 04/06/2012 LINH CONVEYOR MECHANIC, LAZARA A 477.0 ALLERGIC RHINITIS DUE TO POLLEN 04/06/2012 SAINZ DO, SHAY K 008.8 Gastroenteritis, Viral 04/06/2012 SAINZ DO, SHAY K 477.0 ALLERGIC RHINITIS DUE TO POLLEN 04/06/2012 LINH CONVEYOR MECHANIC, LAZARA A 008.8 Gastroenteritis, Viral 04/06/2012 LINH CONVEYOR MECHANIC, LAZARA A 477.0 ALLERGIC RHINITIS DUE TO POLLEN 04/06/2012 LINH CONVEYOR MECHANIC, LAZARA A 008.8 Gastroenteritis, Viral 04/06/2012 LINH CONVEYOR MECHANIC, LAZARA A 477.0 ALLERGIC RHINITIS DUE TO [...] 477.0 ALLERGIC RHINITIS DUE TO POLLEN 04/06/2012 HENRY CONROY, ROBERTO N 008.8 Gastroenteritis, Viral 04/06/2012 HENRY CONROY, ROBERTO N 477.0 ALLERGIC RHINITIS DUE TO POLLEN 04/06/2012 LINH CONVEYOR MECHANIC, LAZARA A 008.8 Gastroenteritis, Viral 04/06/2012 LINH CONVEYOR MECHANIC, LAZARA A 477.0 ALLERGIC RHINITIS DUE TO POLLEN 04/06/2012 LINH CONVEYOR MECHANIC, LAZARA A 008.8 Gastroenteritis, Viral 04/06/2012 LINH CONVEYOR MECHANIC, LAZARA A 477.0 ALLERGIC RHINITIS DUE TO POLLEN 04/06/2012 SAINZ DO, SHAY K 008.8 Gastroenteritis, Viral 04/06/2012 SAINZ DO, SHAY K 477.0 ALLERGIC RHINITIS DUE TO POLLEN 04/06/2012 MELANIE CONVEYOR MECHANIC, BENSON R 008.8 Gastroenteritis, Viral 04/06/2012 MELANIE CONVEYOR MECHANIC, BENSON R 477.0 ALLERGIC RHINITIS DUE TO POLLEN 04/06/2012 LINH CONVEYOR MECHANIC, LAZARA A 008.8 Gastroenteritis, Viral 04/06/2012 LINH CONVEYOR MECHANIC, LAZARA A 477.0 ALLERGIC RHINITIS DUE TO POLLEN 04/06/2012 SAINZ DO, SHAY K 008.8 Gastroenteritis, Viral 04/06/2012 SAINZ DO, SHAY K 477.0 ALLERGIC RHINITIS DUE TO POLLEN 04/06/2012 MELANIE CONVEYOR MECHANIC, BENSON R 008.8 Gastroenteritis, Viral 04/06/2012 MELANIE CONVEYOR MECHANIC, BENSON R 477.0 ALLERGIC RHINITIS DUE TO POLLEN 04/06/2012 LINH CONVEYOR MECHANIC, LAZARA A 008.8 Gastroenteritis, Viral 04/06/2012 LINH CONVEYOR MECHANIC, LAZARA A 477.0 ALLERGIC RHINITIS DUE TO POLLEN 04/06/2012 MELANIE CONVEYOR MECHANIC, BENSON R 008.8 Gastroenteritis, Viral 04/06/2012 MELANIE CONVEYOR MECHANIC, BENSON R 477.0 ALLERGIC RHINITIS DUE TO POLLEN 05/18/2012 380.4 CERUMEN IMPACTION 05/18/2012 465.9 UPPER RESPIRATORY INFECTION 05/18/2012 380.4 CERUMEN IMPACTION 05/18/2012 465.9 UPPER RESPIRATORY INFECTION 05/18/2012 SAINZ DO SHAY K 380.4 CERUMEN IMPACTION 05/18/2012 SAINZ DO, SHAY K 465.9 UPPER RESPIRATORY INFECTION 05/18/2012 380.4 CERUMEN IMPACTION 05/18/2012 465.9 UPPER RESPIRATORY INFECTION 05/18/2012 SAINZ DO SHAY K 380.4 CERUMEN IMPACTION 05/18/2012 SAINZ DO, SHAY K 465.9 UPPER RESPIRATORY INFECTION 05/18/2012 380.4 CERUMEN IMPACTION 05/18/2012 465.9 UPPER RESPIRATORY INFECTION 05/18/2012 380.4 CERUMEN IMPACTION 05/18/2012 465.9 UPPER RESPIRATORY INFECTION 05/18/2012 CASSIDY GUSTAFSON PHD 380.4 CERUMEN IMPACTION 05/18/2012 SJ FINK, CASSIDY Castillo 465.9 UPPER RESPIRATORY INFECTION 05/18/2012 SAINZ DO SHAY K 380.4 CERUMEN IMPACTION 05/18/2012 SAINZ DO SHAY K 465.9 UPPER RESPIRATORY INFECTION 05/18/2012 [facility] 380.4 CERUMEN IMPACTION 05/18/2012 [facility] 465.9 UPPER RESPIRATORY INFECTION 05/18/2012 [facility] 380.4 CERUMEN IMPACTION 05/18/2012 [facility]OW[facility]SC[facility], PATRICE A 465.9 UPPER RESPIRATORY INFECTION 05/18/2012 DOWELL LSCS, PATRICE A 380.4 CERUMEN IMPACTION 05/18/2012 DOWELL LSCS, PATRICE A 465.9 UPPER RESPIRATORY INFECTION 05/18/2012 RAJOTTE CONVEYOR MECHANIC, OTTONIEL A 380.4 CERUMEN IMPACTION 05/18/2012 RAJOTTE CONVEYOR MECHANIC, OTTONIEL A 465.9 UPPER RESPIRATORY INFECTION 05/18/2012 DOWELL LSCS, PATRICE A 380.4 CERUMEN IMPACTION 05/18/2012 DOWELL LSCS, PATRICE A 465.9 UPPER RESPIRATORY INFECTION 05/18/2012 DOWELL LSCS, PATRICE A 380.4 CERUMEN IMPACTION 05/18/2012 DOWELL LSCS, PATRICE A 465.9 UPPER RESPIRATORY INFECTION 05/18/2012 RAJOTTE CONVEYOR MECHANIC, OTTONIEL A 380.4 CERUMEN IMPACTION 05/18/2012 RAJOTTE CONVEYOR MECHANIC, OTTONIEL A 465.9 UPPER RESPIRATORY INFECTION 05/18/2012 MELANIE CONVEYOR MECHANIC, BENSON R 380.4 CERUMEN IMPACTION 05/18/2012 MELANIE CONVEYOR MECHANIC, BENSON R 465.9 UPPER RESPIRATORY INFECTION 05/18/2012 DOWELL LSCS, PATRICE A 380.4 CERUMEN IMPACTION 05/18/2012 DOWELL LSCS, PATRICE A 465.9 UPPER RESPIRATORY INFECTION 05/18/2012 MELANIE CONVEYOR MECHANIC, BENSON R 380.4 CERUMEN IMPACTION 05/18/2012 MELANIE CONVEYOR MECHANIC, BENSON R 465.9 UPPER RESPIRATORY INFECTION 05/18/2012 MELANIE CONVEYOR MECHANIC, BENSON R 380.4 CERUMEN IMPACTION 05/18/2012 MELANIE CONVEYOR MECHANIC, BENSON R 465.9 UPPER RESPIRATORY INFECTION 05/18/2012 SAI PEREZ MD 380.4 CERUMEN IMPACTION 05/18/2012 SAI PEREZ MD 465.9 UPPER RESPIRATORY INFECTION 05/18/2012 SAINZ DO, SHAY K 380.4 CERUMEN IMPACTION 05/18/2012 SAINZ DO, SHAY K 465.9 UPPER RESPIRATORY INFECTION 05/18/2012 LINH CONVEYOR MECHANIC, LAZARA A 380.4 CERUMEN IMPACTION 05/18/2012 LINH CONVEYOR MECHANIC, LAZARA A 465.9 UPPER RESPIRATORY INFECTION 05/18/2012 SAINZ DO, SHAY K 380.4 CERUMEN IMPACTION 05/18/2012 SAINZ DO, SHAY K 465.9 UPPER RESPIRATORY INFECTION 05/18/2012 LINH CONVEYOR MECHANIC, LAZARA A 380.4 CERUMEN IMPACTION 05/18/2012 LINH CONVEYOR MECHANIC, LAZARA A 465.9 UPPER RESPIRATORY INFECTION 05/18/2012 LINH CONVEYOR MECHANIC, LAZARA A 380.4 CERUMEN IMPACTION 05/18/2012 LINH CONVEYOR MECHANIC, LAZARA A 465.9 UPPER RESPIRATORY INFECTION 05/18/2012 SAINZ DO, SHAY K 380.4 CERUMEN IMPACTION 05/18/2012 SAINZ DO, SHAY K 465.9 UPPER RESPIRATORY INFECTION 05/18/2012 JUSTIN CONVEYOR MECHANIC, MIKE T 380.4 CERUMEN IMPACTION 05/18/2012 JUSTIN CONVEYOR MECHANIC, MIKE T 465.9 UPPER RESPIRATORY INFECTION 05/18/2012 [...] ROBERTO FIGUEROA MD 380.4 CERUMEN IMPACTION 05/18/2012 ROBERTO FIGUEROA MD N 465.9 UPPER RESPIRATORY INFECTION 05/18/2012 LINH CONVEYOR MECHANIC, LAZARA A 380.4 CERUMEN IMPACTION 05/18/2012 LINH CONVEYOR MECHANIC, LAZARA A 465.9 UPPER RESPIRATORY INFECTION 05/18/2012 LINH CONVEYOR MECHANIC, LAZARA A 380.4 CERUMEN IMPACTION 05/18/2012 LINH CONVEYOR MECHANIC, LAZARA A 465.9 UPPER RESPIRATORY INFECTION 05/18/2012 SAINZ DO, SHAY K 380.4 CERUMEN IMPACTION 05/18/2012 SAINZ DO, SHAY K 465.9 UPPER RESPIRATORY INFECTION 05/18/2012 MELANIE CONVEYOR MECHANIC, BENSON R 380.4 CERUMEN IMPACTION 05/18/2012 MELANIE CONVEYOR MECHANIC, BENSON R 465.9 UPPER RESPIRATORY INFECTION 05/18/2012 LINH CONVEYOR MECHANIC, LAZARA A 380.4 CERUMEN IMPACTION 05/18/2012 LINH CONVEYOR MECHANIC, LAZARA A 465.9 UPPER RESPIRATORY INFECTION 05/18/2012 SAINZ DO, SHAY K 380.4 CERUMEN IMPACTION 05/18/2012 SAINZ DO, SHAY K 465.9 UPPER RESPIRATORY INFECTION 05/18/2012 MELANIE CONVEYOR MECHANIC, BENSON R 380.4 CERUMEN IMPACTION 05/18/2012 MELANIE CONVEYOR MECHANIC, BENSON R 465.9 UPPER RESPIRATORY INFECTION 05/18/2012 LINH CONVEYOR MECHANIC, LAZARA A 380.4 CERUMEN IMPACTION 05/18/2012 LINH CONVEYOR MECHANIC, LAZARA A 465.9 UPPER RESPIRATORY INFECTION 05/18/2012 MELANIE CONVEYOR MECHANIC, BENSON R 380.4 CERUMEN IMPACTION 05/18/2012 MELANIE CONVEYOR MECHANIC, BENSON R 465.9 UPPER RESPIRATORY INFECTION 05/25/2012 SHAY SAINZ DO V72.41 TEST NEGATIVE RESULT 05/25/2012 V72.41 TEST NEGATIVE RESULT 05/25/2012 SHAY SAINZ DO V72.41 TEST NEGATIVE RESULT 05/25/2012 V72.41 TEST NEGATIVE RESULT 05/25/2012 V72.41 TEST NEGATIVE RESULT 05/25/2012 SJ FINK, CASSIDY Castillo V72.41 TEST NEGATIVE RESULT 05/25/2012 SHAY SAINZ DO V72.41 TEST NEGATIVE RESULT 05/25/2012 [facility] V72.41 TEST NEGATIVE RESULT 05/25/2012 [facility], PATRICE A V72.41 TEST NEGATIVE RESULT 05/25/2012 [facility], PATRICE A V72.41 TEST NEGATIVE RESULT 05/25/2012 COREY CONVEYOR MECHANIC, OTTONIEL A V72.41 TEST NEGATIVE RESULT 05/25/2012 DOWELL [facility], PATRICE A V72.41 TEST NEGATIVE RESULT 05/25/2012 [facility], PATRICE A V72.41 TEST NEGATIVE RESULT 05/25/2012 COREY CONVEYOR MECHANIC, OTTONIEL A V72.41 TEST NEGATIVE RESULT 05/25/2012 MELANIE CONVEYOR MECHANIC, BENSON R V72.41 TEST NEGATIVE RESULT 05/25/2012 [facility], PATRICE A V72.41 TEST NEGATIVE RESULT 05/25/2012 MELANIE CONVEYOR MECHANIC, BENSON R V72.41 TEST NEGATIVE RESULT 05/25/2012 MELANIE CONVEYOR MECHANIC, BENSON R V72.41 TEST NEGATIVE RESULT 05/25/2012 SAI PEREZ MD V72.41 TEST NEGATIVE RESULT 05/25/2012 SAINZ DO, SHAY K V72.41 TEST NEGATIVE RESULT 05/25/2012 LINH LAN LAZARA A V72.41 TEST NEGATIVE RESULT 05/25/2012 SAINZ DO, SHAY K V72.41 TEST NEGATIVE RESULT 05/25/2012 LINH LAN, [...] SHAY K V72.41 TEST NEGATIVE RESULT 05/25/2012 HENRY CONROY, ROBERTO Fernandez V72.41 TEST NEGATIVE RESULT 05/25/2012 LINHBRANDEN LAN, LAZARA A V72.41 TEST NEGATIVE RESULT 05/25/2012 LINH APRN, LAZARA A V72.41 TEST NEGATIVE RESULT 05/25/2012 TAWNY SAINZ DOA K V72.41 TEST NEGATIVE RESULT 05/25/2012 MELANIE CONVEYOR MECHANIC, BENSON R V72.41 TEST NEGATIVE RESULT 05/25/2012 LINHBRANDEN LAN, LAZARA A V72.41 TEST NEGATIVE RESULT 05/25/2012 SAINZ DO SHAY K V72.41 TEST NEGATIVE RESULT 05/25/2012 MELANIE LAN, BENSON R V72.41 TEST NEGATIVE RESULT 05/25/2012 LINHBRANDEN LAN, LAZARA A V72.41 TEST NEGATIVE RESULT 05/25/2012 MELANIE CONVEYOR MECHANIC, BENSON R V72.41 TEST NEGATIVE RESULT 06/17/2012 [...] V25.01 CONTRACEPTION - ORAL CONTRACEPTION 07/06/2012 [facility] 724.2 BACK PAIN, LOWER 07/06/2012 [facility] V25.01 CONTRACEPTION - ORAL CONTRACEPTION 07/06/2012 [facility], PATRICE A 724.2 BACK PAIN, LOWER 07/06/2012 [facility], PATRICE A V25.01 CONTRACEPTION - ORAL CONTRACEPTION 07/06/2012 DOWELL LSCS, PATRICE A 724.2 BACK PAIN, LOWER 07/06/2012 DOWELL LSCS, PATRICE A V25.01 CONTRACEPTION - ORAL CONTRACEPTION 07/06/2012 RAJOTTE CONVEYOR MECHANIC, OTTONIEL A 724.2 BACK PAIN, LOWER 07/06/2012 RAJOTTE CONVEYOR MECHANIC, OTTONIEL A V25.01 CONTRACEPTION - ORAL CONTRACEPTION 07/06/2012 DOWELL LSCS, PATRICE A 724.2 BACK PAIN, LOWER 07/06/2012 DOWELL LSCS, PATRICE A V25.01 CONTRACEPTION - ORAL CONTRACEPTION 07/06/2012 DOWELL LSCS, PATRICE A 724.2 BACK PAIN, LOWER 07/06/2012 DOWELL LSC[facility], PATRICE A V25.01 CONTRACEPTION - ORAL CONTRACEPTION 07/06/2012 RAJOTTE CONVEYOR MECHANIC, OTTONIEL A 724.2 BACK PAIN, LOWER 07/06/2012 RAJNIMESHE CONVEYOR MECHANIC, OTTONIEL A V25.01 CONTRACEPTION - ORAL CONTRACEPTION 07/06/2012 MELANIE CONVEYOR MECHANIC, BENSON R 724.2 BACK PAIN, LOWER 07/06/2012 MELANIE CONVEYOR MECHANIC, BENSON R V25.01 CONTRACEPTION - ORAL CONTRACEPTION 07/06/2012 DOWELL LSCS, PATRICE A 724.2 BACK PAIN, LOWER 07/06/2012 DOWELL LSCS, PATRICE A V25.01 CONTRACEPTION - ORAL CONTRACEPTION 07/06/2012 MELANIE CONVEYOR MECHANIC, BENSON R 724.2 BACK PAIN, LOWER 07/06/2012 MELANIE CONVEYOR MECHANIC, BENSON R V25.01 CONTRACEPTION - ORAL CONTRACEPTION 07/06/2012 MELANIE CONVEYOR MECHANIC, BENSON R 724.2 BACK PAIN, LOWER 07/06/2012 MELANIE CONVEYOR MECHANIC, BENSON R V25.01 CONTRACEPTION - ORAL CONTRACEPTION 07/06/2012 SAI PEREZ MD 724.2 BACK PAIN, LOWER 07/06/2012 SAI PEREZ MD V25.01 CONTRACEPTION - ORAL CONTRACEPTION 07/06/2012 SAINZ DO, SHAY K 724.2 BACK PAIN, LOWER 07/06/2012 SAINZ DO, SHAY K V25.01 CONTRACEPTION - ORAL CONTRACEPTION 07/06/2012 LINH CONVEYOR MECHANIC, LAZARA A 724.2 BACK PAIN, LOWER 07/06/2012 LINH CONVEYOR MECHANIC, LAZARA A V25.01 CONTRACEPTION - ORAL CONTRACEPTION 07/06/2012 SAINZ DO, SHAY K 724.2 BACK PAIN, LOWER 07/06/2012 SAINZ DO, SHAY K V25.01 CONTRACEPTION - ORAL CONTRACEPTION 07/06/2012 LINH CONVEYOR MECHANIC, LAZARA A 724.2 BACK PAIN, LOWER 07/06/2012 LINH CONVEYOR MECHANIC, LAZARA A V25.01 CONTRACEPTION - ORAL CONTRACEPTION 07/06/2012 LINH CONVEYOR MECHANIC, LAZARA A 724.2 BACK PAIN, LOWER 07/06/2012 LINH CONVEYOR MECHANIC, LAZARA A V25.01 CONTRACEPTION - ORAL CONTRACEPTION 07/06/2012 SAINZ DO, SHAY K 724.2 BACK PAIN, LOWER 07/06/2012 SAINZ DO, SHAY K V25.01 CONTRACEPTION - ORAL CONTRACEPTION 07/06/2012 JUSTIN CONVEYOR MECHANIC, MIKE T 724.2 BACK PAIN, LOWER 07/06/2012 JUSTIN BREWERN MIKE T V25.01 CONTRACEPTION - ORAL CONTRACEPTION 07/06/2012 SAINZ [...] K 724.2 BACK PAIN, LOWER 07/06/2012 SAINZ DO SHAY K V25.01 CONTRACEPTION - ORAL CONTRACEPTION 07/06/2012 ROBERTO FIGUEROA MD N 724.2 BACK PAIN, LOWER 07/06/2012 ROBERTO FIGUEROA MD N V25.01 CONTRACEPTION - ORAL CONTRACEPTION 07/06/2012 LINH CONVEYOR MECHANIC, LAZARA A 724.2 BACK PAIN, LOWER 07/06/2012 LINH CONVEYOR MECHANIC, LAZARA A V25.01 CONTRACEPTION - ORAL CONTRACEPTION 07/06/2012 LINH CONVEYOR MECHANIC, LAZARA A 724.2 BACK PAIN, LOWER 07/06/2012 LINH CONVEYOR MECHANIC, LAZARA A V25.01 CONTRACEPTION - ORAL CONTRACEPTION 07/06/2012 SAINZ DO, SHAY K 724.2 BACK PAIN, LOWER 07/06/2012 TAWNY SAINZ DOA K V25.01 CONTRACEPTION - ORAL CONTRACEPTION 07/06/2012 MELANIE CONVEYOR MECHANIC, BENSON R 724.2 BACK PAIN, LOWER 07/06/2012 MELANIE BREWERN, BENSON R V25.01 CONTRACEPTION - ORAL CONTRACEPTION 07/06/2012 LINH CONVEYOR MECHANIC, LAZARA A 724.2 BACK PAIN, LOWER 07/06/2012 LINH CONVEYOR MECHANIC, LAZARA A V25.01 CONTRACEPTION - ORAL CONTRACEPTION 07/06/2012 SAINZ DO, SHAY K 724.2 BACK PAIN, LOWER 07/06/2012 EMELI DOTAWNYA K V25.01 CONTRACEPTION - ORAL CONTRACEPTION 07/06/2012 MELANIE CONVEYOR MECHANIC, BENSON R 724.2 BACK PAIN, LOWER 07/06/2012 MELANIE BREWERN, BENSON R V25.01 CONTRACEPTION - ORAL CONTRACEPTION 07/06/2012 LINH CONVEYOR MECHANIC, LAZARA A 724.2 BACK PAIN, LOWER 07/06/2012 LINH CONVEYOR MECHANIC, LAZARA A V25.01 CONTRACEPTION - ORAL CONTRACEPTION 07/06/2012 MELANIE CONVEYOR MECHANIC, BENSON R 724.2 BACK PAIN, LOWER 07/06/2012 MELANIE CONVEYOR MECHANIC, BENSON R V25.01 CONTRACEPTION - ORAL CONTRACEPTION 09/28/2012 692.9 DERMATITIS CONTACT UNSPECIFIED 09/28/2012 692.9 DERMATITIS CONTACT UNSPECIFIED 09/28/2012 SJ FINK, CASSIDY Castillo 692.9 DERMATITIS CONTACT UNSPECIFIED 09/28/2012 TAWNY SAINZ DOA K 692.9 DERMATITIS CONTACT UNSPECIFIED 09/28/2012 [facility], PATRICE A 692.9 DERMATITIS CONTACT UNSPECIFIED 09/28/2012 [facility], PATRICE A 692.9 DERMATITIS CONTACT UNSPECIFIED 09/28/2012 [facility], PATRICE A 692.9 DERMATITIS CONTACT UNSPECIFIED 09/28/2012 RAJOTTE CONVEYOR MECHANIC, OTTONIEL A 692.9 DERMATITIS CONTACT UNSPECIFIED 09/28/2012 [facility] 692.9 DERMATITIS CONTACT UNSPECIFIED 09/28/2012 [facility] 692.9 DERMATITIS CONTACT UNSPECIFIED 09/28/2012 RAJOTTE CONVEYOR MECHANIC, OTTONIEL A 692.9 DERMATITIS CONTACT UNSPECIFIED 09/28/2012 MELANIE CONVEYOR MECHANIC, BENSON R 692.9 DERMATITIS CONTACT UNSPECIFIED 09/28/2012 [facility] 692.9 DERMATITIS CONTACT UNSPECIFIED 09/28/2012 [facility] [employer], BENSON R 692.9 DERMATITIS CONTACT UNSPECIFIED 09/28/2012 M[facility] CON[employer]CHANIC, BENSON R 692.9 DERMATITIS CONTACT UNSPECIFIED 09/28/2012 SAI PEREZ MD 692.9 DERMATITIS CONTACT UNSPECIFIED 09/28/2012 SAINZ DO, SHAY K 692.9 DERMATITIS CONTACT UNSPECIFIED 09/28/2012 [facility] [employer], LAZARA A 692.9 DERMATITIS CONTACT UNSPECIFIED 09/28/2012 SAINZ DO, SHAY K 692.9 DERMATITIS CONTACT UNSPECIFIED 09/28/2012 [facility] [employer]CH[employer]IC, LAZARA A 692.9 DERMATITIS CONTACT UNSPECIFIED 09/28/2012 [facility] [employer]CH[employer]IC, LAZARA A 692.9 DERMATITIS CONTACT UNSPECIFIED 09/28/2012 [...] Fernandez 692.9 DERMATITIS CONTACT UNSPECIFIED 09/28/2012 [facility] [employer]CH[employer]IC, LAZARA A 692.9 DERMATITIS CONTACT UNSPECIFIED 09/28/2012 [facility] [employer]CH[employer]IC, LAZARA A 692.9 DERMATITIS CONTACT UNSPECIFIED 09/28/2012 SAINZ DO, SHAY K 692.9 DERMATITIS CONTACT UNSPECIFIED 09/28/2012 MELANIE CON[employer]YOR MECHANIC, BENSON R 692.9 DERMATITIS CONTACT UNSPECIFIED 09/28/2012 [facility] [employer]CH[employer]IC, LAZARA A 692.9 DERMATITIS CONTACT UNSPECIFIED 09/28/2012 SAINZ DO, SHAY K 692.9 DERMATITIS CONTACT UNSPECIFIED 09/28/2012 MELANIE CON[employer]YOR MECHANIC, BENSON R 692.9 DERMATITIS CONTACT UNSPECIFIED 09/28/2012 [facility] CON[employer] MECHANIC, LAZARA A 692.9 DERMATITIS CONTACT UNSPECIFIED 09/28/2012 MELANIE CONVEYOR MECHANIC, BENSON R 692.9 DERMATITIS CONTACT UNSPECIFIED 11/12/2012 535.50 UNSPECIFIED GASTRITIS AND GASTRODUODENITIS (WITHOUT HEMORRHAGE) 11/12/2012 564.00 UNSPECIFIED CONSTIPATION 11/12/2012 SJ PHDCASSIDY 535.50 UNSPECIFIED GASTRITIS AND GASTRODUODENITIS (WITHOUT HEMORRHAGE) 11/12/2012 CASSIDY GUSTAFSON PHD 564.00 UNSPECIFIED CONSTIPATION 11/12/2012 HSAY SAINZ DO K 535.50 UNSPECIFIED GASTRITIS AND GASTRODUODENITIS (WITHOUT HEMORRHAGE) 11/12/2012 SHAY SAINZ DO K 564.00 UNSPECIFIED CONSTIPATION 11/12/2012 [facility], PATRICE A 535.50 UNSPECIFIED GASTRITIS AND GASTRODUODENITIS (WITHOUT HEMORRHAGE) 11/12/2012 [facility], PATRICE A 564.00 UNSPECIFIED CONSTIPATION 11/12/2012 [facility], PATRICE A 535.50 UNSPECIFIED GASTRITIS AND GASTRODUODENITIS (WITHOUT HEMORRHAGE) 11/12/2012 [facility], PATRICE A 564.00 UNSPECIFIED CONSTIPATION 11/12/2012 [facility], PATRICE A 535.50 UNSPECIFIED GASTRITIS AND GASTRODUODENITIS (WITHOUT HEMORRHAGE) 11/12/2012 [facility], PATRICE A 564.00 UNSPECIFIED CONSTIPATION 11/12/2012 JER[employer] CONVEYOR MECHANIC, OTTONIEL A 535.50 UNSPECIFIED GASTRITIS AND GASTRODUODENITIS (WITHOUT HEMORRHAGE) 11/12/2012 [employer] CON[employer]CH[employer]IC, OTTONIEL A 564.00 UNSPECIFIED CONSTIPATION 11/12/2012 [facility], PATRICE A 535.50 UNSPECIFIED GASTRITIS AND GASTRODUODENITIS (WITHOUT HEMORRHAGE) 11/12/2012 [facility], PATRICE A 564.00 UNSPECIFIED CONSTIPATION 11/12/2012 [facility], PATRICE A 535.50 UNSPECIFIED GASTRITIS AND GASTRODUODENITIS (WITHOUT HEMORRHAGE) 11/12/2012 [facility], PATRICE A 564.00 UNSPECIFIED CONSTIPATION 11/12/2012 [employer] CONVEYOR MECHANIC, OTTONIEL A 535.50 UNSPECIFIED GASTRITIS AND GASTRODUODENITIS (WITHOUT HEMORRHAGE) 11/12/2012 [employer] CONVEYOR MECHANIC, OTTONIEL A 564.00 UNSPECIFIED CONSTIPATION 11/12/2012 MELANIE CONVEYOR MECHANIC, BENSON R 535.50 UNSPECIFIED GASTRITIS AND GASTRODUODENITIS (WITHOUT HEMORRHAGE) 11/12/2012 MELANIE CONVEYOR MECHANIC, BENSON R 564.00 UNSPECIFIED CONSTIPATION 11/12/2012 [facility], PATRICE A 535.50 UNSPECIFIED GASTRITIS AND GASTRODUODENITIS (WITHOUT HEMORRHAGE) 11/12/2012 [facility] 564.00 UNSPECIFIED CONSTIPATION 11/12/2012 MELANIE CONVEYOR MECHANIC, BENSON R 535.50 UNSPECIFIED GASTRITIS AND GASTRODUODENITIS (WITHOUT HEMORRHAGE) 11/12/2012 MELANIE CONVEYOR MECHANIC, BENSON R 564.00 UNSPECIFIED CONSTIPATION 11/12/2012 MELANIE BREWERN, BENSON R 535.50 UNSPECIFIED GASTRITIS AND GASTRODUODENITIS (WITHOUT HEMORRHAGE) 11/12/2012 MELANIE CONVEYOR MECHANIC, BENSON R 564.00 UNSPECIFIED CONSTIPATION 11/12/2012 SAI PEREZ MD 535.50 UNSPECIFIED GASTRITIS AND GASTRODUODENITIS (WITHOUT HEMORRHAGE) 11/12/2012 SAI PEREZ MD 564.00 UNSPECIFIED CONSTIPATION 11/12/2012 SHAY SAINZ DO 535.50 UNSPECIFIED GASTRITIS AND GASTRODUODENITIS (WITHOUT HEMORRHAGE) 11/12/2012 SHAY SAINZ DO K 564.00 UNSPECIFIED CONSTIPATION 11/12/2012 LAZARA MELTON APRN A 535.50 UNSPECIFIED GASTRITIS AND GASTRODUODENITIS (WITHOUT HEMORRHAGE) 11/12/2012 [facility] CONVEYOR MECHANIC, LAZARA A 564.00 UNSPECIFIED CONSTIPATION 11/12/2012 SAINZ DO, SHAY K 535.50 UNSPECIFIED GASTRITIS AND GASTRODUODENITIS (WITHOUT HEMORRHAGE) 11/12/2012 SAINZ DO, SHAY K 564.00 UNSPECIFIED CONSTIPATION 11/12/2012 [facility] CONVEYOR MECHANIC, LAZARA A 535.50 UNSPECIFIED GASTRITIS AND GASTRODUODENITIS (WITHOUT HEMORRHAGE) 11/12/2012 [facility] CONVEYOR MECHANIC, LAZARA A 564.00 UNSPECIFIED CONSTIPATION 11/12/2012 LINH CONVEYOR MECHANIC, LAZARA A 535.50 UNSPECIFIED GASTRITIS AND GASTRODUODENITIS (WITHOUT HEMORRHAGE) 11/12/2012 LINH CONVEYOR MECHANIC, LAZARA A 564.00 UNSPECIFIED CONSTIPATION 11/12/2012 SAINZ [...] ROBERTO FIGUEROA MD 564.00 UNSPECIFIED CONSTIPATION 11/12/2012 LINH BREWERNJASONLAZARA A 535.50 UNSPECIFIED GASTRITIS AND GASTRODUODENITIS (WITHOUT HEMORRHAGE) 11/12/2012 LINH BREWERNJASONLAZARA A 564.00 UNSPECIFIED CONSTIPATION 11/12/2012 LINH BREWERN, LAZARA A 535.50 UNSPECIFIED GASTRITIS AND GASTRODUODENITIS (WITHOUT HEMORRHAGE) 11/12/2012 LINH CONVEYOR MECHANIC, LAZARA A 564.00 UNSPECIFIED CONSTIPATION 11/12/2012 SAINZ DO, SHAY K 535.50 UNSPECIFIED GASTRITIS AND GASTRODUODENITIS (WITHOUT HEMORRHAGE) 11/12/2012 SAINZ DO, SHAY K 564.00 UNSPECIFIED CONSTIPATION 11/12/2012 MELANIE BREWERN BENSON R 535.50 UNSPECIFIED GASTRITIS AND GASTRODUODENITIS (WITHOUT HEMORRHAGE) 11/12/2012 MELANIE LAN BENSON R 564.00 UNSPECIFIED CONSTIPATION 11/12/2012 LINH CONVEYOR MECHANIC LAZARA A 535.50 UNSPECIFIED GASTRITIS AND GASTRODUODENITIS (WITHOUT HEMORRHAGE) 11/12/2012 LINH BREWERN, LAZARA A 564.00 UNSPECIFIED CONSTIPATION 11/12/2012 SAINZ DO SHAY K 535.50 UNSPECIFIED GASTRITIS AND GASTRODUODENITIS (WITHOUT HEMORRHAGE) 11/12/2012 SAINZ DO, SHAY K 564.00 UNSPECIFIED CONSTIPATION 11/12/2012 MELANIE LAN BENSON R 535.50 UNSPECIFIED GASTRITIS AND GASTRODUODENITIS (WITHOUT HEMORRHAGE) 11/12/2012 MELANIE CONVEYOR MECHANIC, BENSON R 564.00 UNSPECIFIED CONSTIPATION 11/12/2012 LINH CONVEYOR MECHANIC, LAZARA A 535.50 UNSPECIFIED GASTRITIS AND GASTRODUODENITIS (WITHOUT HEMORRHAGE) 11/12/2012 LINH CONVEYOR MECHANIC, LAZARA A 564.00 UNSPECIFIED CONSTIPATION 11/12/2012 MELANIE CONVEYOR MECHANIC, BENSON R 535.50 UNSPECIFIED GASTRITIS AND GASTRODUODENITIS (WITHOUT HEMORRHAGE) 11/12/2012 MELANIE CONVEYOR MECHANIC, BENSON R 564.00 UNSPECIFIED CONSTIPATION 02/19/2013 SAINZ [...] LSCS, PATRICE A V79.0 DEPRESSION SCREENING 02/19/2013 JERAMIEE CONVEYOR MECHANIC, OTTONIEL A 530.81 GERD 02/19/2013 RAJOTTE CONVEYOR MECHANIC, OTTONIEL A V79.0 DEPRESSION SCREENING 02/19/2013 DOWELL LSCS, PATRICE A 530.81 GERD 02/19/2013 DOWELL LSCS, PATRICE A V79.0 DEPRESSION SCREENING 02/19/2013 DOWELL LSCS, PATRICE A 530.81 GERD 02/19/2013 DOWELL LSCS, PATRICE A V79.0 DEPRESSION SCREENING 02/19/2013 RAJNIMESHE CONVEYOR MECHANIC, OTTONIEL A 530.81 GERD 02/19/2013 RAJOTTE CONVEYOR MECHANIC, OTTONIEL A V79.0 DEPRESSION SCREENING 02/19/2013 MELANIE CONVEYOR MECHANIC, BENSON R 530.81 GERD 02/19/2013 MELANIE CONVEYOR MECHANIC, BENSON R V79.0 DEPRESSION SCREENING 02/19/2013 DOWELL LSCS, PATRICE A 530.81 GERD 02/19/2013 DOWELL LSCS, PATRICE A V79.0 DEPRESSION SCREENING 02/19/2013 MELANIE CONVEYOR MECHANIC, BENSON R 530.81 GERD 02/19/2013 MELANIE CONVEYOR MECHANIC, BENSON R V79.0 DEPRESSION SCREENING 02/19/2013 MELANIE CONVEYOR MECHANIC, BENSON R 530.81 GERD 02/19/2013 MELANIE CONVEYOR MECHANIC, BENSON R V79.0 DEPRESSION SCREENING 02/19/2013 SAI PEREZ MD 530.81 GERD 02/19/2013 SAI PEREZ MD V79.0 DEPRESSION SCREENING 02/19/2013 SAINZ DO, SHAY K 530.81 GERD 02/19/2013 SAINZ DO, SHAY K V79.0 DEPRESSION SCREENING 02/19/2013 LINH CONVEYOR MECHANIC, LAZARA A 530.81 GERD 02/19/2013 LINH CONVEYOR MECHANIC, LAZARA A V79.0 DEPRESSION SCREENING 02/19/2013 SAINZ DO, SHAY K 530.81 GERD 02/19/2013 SAINZ DO, SHAY K V79.0 DEPRESSION SCREENING 02/19/2013 LINH CONVEYOR MECHANIC, LAZARA A 530.81 GERD 02/19/2013 LINH CONVEYOR MECHANIC, LAZARA A V79.0 DEPRESSION SCREENING 02/19/2013 LINH CONVEYOR MECHANIC, LAZARA A 530.81 GERD 02/19/2013 LINH CONVEYOR MECHANIC, LAZARA A V79.0 DEPRESSION SCREENING 02/19/2013 SAINZ DO, SHAY K 530.81 GERD 02/19/2013 SAINZ DO, SHAY K V79.0 DEPRESSION SCREENING 02/19/2013 MIKE ANDERSON APRN T 530.81 GERD 02/19/2013 MIKE ANDERSON APRN V79.0 DEPRESSION SCREENING 02/19/2013 SAINZ DO, SHAY [...] SAINZ DO, SHAY K 530.81 GERD 02/19/2013 EMELI HUGHES, SHAY K V79.0 DEPRESSION SCREENING 02/19/2013 SAINZ , SHAY K 530.81 GERD 02/19/2013 SAINZ , SHAY K V79.0 DEPRESSION SCREENING 02/19/2013 ROBERTO FIGUEROA MD N 530.81 GERD 02/19/2013 ROBERTO FIGUEROA MD V79.0 DEPRESSION SCREENING 02/19/2013 LINH CONVEYOR MECHANIC, LAZARA A 530.81 GERD 02/19/2013 LINH CONVEYOR MECHANIC, LAZARA A V79.0 DEPRESSION SCREENING 02/19/2013 LINH CONVEYOR MECHANIC, LAZARA A 530.81 GERD 02/19/2013 LINH CONVEYOR MECHANIC, LAZARA A V79.0 DEPRESSION SCREENING 02/19/2013 EMELI HUGHES, SHAY K 530.81 GERD 02/19/2013 SAINZ , SHAY K V79.0 DEPRESSION SCREENING 02/19/2013 MELANIE CONVEYOR MECHANIC, BENSON R 530.81 GERD 02/19/2013 MELANIE CONVEYOR MECHANIC, BENSON R V79.0 DEPRESSION SCREENING 02/19/2013 LINH CONVEYOR MECHANIC, LAZARA A 530.81 GERD 02/19/2013 LINH CONVEYOR MECHANIC, LAZARA A V79.0 DEPRESSION SCREENING 02/19/2013 EMELI HUGHES, SHAY K 530.81 GERD 02/19/2013 EMELI HUGHES, SHAY K V79.0 DEPRESSION SCREENING 02/19/2013 MELANIE CONVEYOR MECHANIC, BENSON R 530.81 GERD 02/19/2013 MELANIE CONVEYOR MECHANIC, BENSON R V79.0 DEPRESSION SCREENING 02/19/2013 LINH CONVEYOR MECHANIC, LAZARA A 530.81 GERD 02/19/2013 LINH CONVEYOR MECHANIC, LAZARA A V79.0 DEPRESSION SCREENING 02/19/2013 MELANIE CONVEYOR MECHANIC, BENSON R 530.81 GERD 02/19/2013 MELANIE CONVEYOR MECHANIC, BENSON R V79.0 DEPRESSION SCREENING 02/26/2013 MILKA GONCALVES Ot 724.2 LUMBAGO 02/26/2013 MILKA GONCALVES Ot V57.1 PHYSICAL THERAPY NEC 03/20/2013 [facility]INITIS (TRICHOMONAS VAGINALIS) 03/20/2013 [facility] V01.6 EXPOSURE TO VENEREAL DISEASES 03/20/2013 DOWELL LSCS, PATRICE A V65.45 STD COUNSELING 03/20/2013 DOWELL LSCS, PATRICE A V69.2 HIGH-RISK SEXUAL BEHAVIOR 03/20/2013 OTTONIEL NICOLE APRN A 131.01 VAGINITIS (TRICHOMONAS VAGINALIS) 03/20/2013 NISHANT NICOLE APRNYL A V01.6 EXPOSURE TO VENEREAL DISEASES 03/20/2013 COREY LAN OTTONIEL A V65.45 STD COUNSELING 03/20/2013 NISHANT NICOLE [...] PATRICE A V69.2 HIGH-RISK SEXUAL BEHAVIOR 03/20/2013 NISHANT NICOLE APRNYL A 131.01 VAGINITIS (TRICHOMONAS VAGINALIS) 03/20/2013 NISHANT NICOLE APRNYL A V01.6 EXPOSURE TO VENEREAL DISEASES 03/20/2013 COREY LAN OTTONIEL A V65.45 STD COUNSELING 03/20/2013 COREY LAN OTTONIEL A V69.2 HIGH-RISK SEXUAL BEHAVIOR 03/20/2013 MELANIE LAN BENSON R 131.01 VAGINITIS (TRICHOMONAS VAGINALIS) 03/20/2013 MELANIE LAN BENSON R V01.6 EXPOSURE TO VENEREAL DISEASES 03/20/2013 MELANIE LAN BENSON R V65.45 STD COUNSELING 03/20/2013 MELANIE LAN BENSON R V69.2 HIGH-RISK SEXUAL BEHAVIOR 03/20/2013 DOWELL LSCS, PATRICE A 131.01 VAGINITIS (TRICHOMONAS VAGINALIS) 03/20/2013 [facility], PATRICE Gonzalez V01.6 EXPOSURE TO VENEREAL DISEASES 03/20/2013 [facility], PATRICE Gonzalez V65.45 STD COUNSELING 03/20/2013 [facility], PATRICE Gonzalez V69.2 HIGH-RISK SEXUAL BEHAVIOR 03/20/2013 RALPH NAVARRO APRNINA R 131.01 VAGINITIS (TRICHOMONAS VAGINALIS) 03/20/2013 MELANIE LAN BENSON R V01.6 EXPOSURE TO VENEREAL DISEASES 03/20/2013 MELANIE LAN BESNON R V65.45 STD COUNSELING 03/20/2013 MELANIE LAN BENSON R V69.2 HIGH-RISK SEXUAL BEHAVIOR 03/20/2013 RALPH NAVARRO APRNINA R 131.01 VAGINITIS (TRICHOMONAS VAGINALIS) 03/20/2013 RALPH NAVARRO APRNINA R V01.6 EXPOSURE TO VENEREAL DISEASES 03/20/2013 MELANIE LAN BENSON R V65.45 STD COUNSELING 03/20/2013 RALPH NAVARRO APRNINA R V69.2 HIGH-RISK SEXUAL BEHAVIOR 03/20/2013 SAI PEREZ MD 131.01 VAGINITIS (TRICHOMONAS VAGINALIS) 03/20/2013 SAI PEREZ MD V01.6 EXPOSURE TO VENEREAL DISEASES 03/20/2013 SAI PEREZ MD V65.45 STD COUNSELING 03/20/2013 SAI PEREZ MD V69.2 HIGH-RISK SEXUAL BEHAVIOR 03/20/2013 SHAY SAINZ DO 131.01 VAGINITIS (TRICHOMONAS VAGINALIS) 03/20/2013 SHAY SAINZ DO V01.6 EXPOSURE TO VENEREAL DISEASES 03/20/2013 SHAY SAINZ DO V65.45 STD COUNSELING 03/20/2013 SHAY SAINZ DO V69.2 HIGH-RISK SEXUAL BEHAVIOR 03/20/2013 LAZARA MELTON APRN 131.01 VAGINITIS (TRICHOMONAS VAGINALIS) 03/20/2013 LAZARA MELTON APRN V01.6 EXPOSURE TO VENEREAL DISEASES 03/20/2013 LZAARA MELTON APRN V65.45 STD COUNSELING 03/20/2013 LAZARA MELTON APRN V69.2 HIGH-RISK SEXUAL BEHAVIOR 03/20/2013 SHAY SAINZ DO 131.01 VAGINITIS (TRICHOMONAS VAGINALIS) 03/20/2013 SAINZ DO, SHAY K V01.6 EXPOSURE TO VENEREAL DISEASES 03/20/2013 SAINZ DO, SHAY K V65.45 STD COUNSELING 03/20/2013 SAINZ DO, SHAY K V69.2 HIGH-RISK SEXUAL BEHAVIOR 03/20/2013 LINH LAN, LAZARA A 131.01 VAGINITIS (TRICHOMONAS VAGINALIS) 03/20/2013 LINH CONVEYOR MECHANIC, LAZARA A V01.6 EXPOSURE TO VENEREAL DISEASES 03/20/2013 LINH CONVEYOR MECHANIC, LAZARA A V65.45 STD COUNSELING 03/20/2013 LINH CONVEYOR MECHANIC, LAZARA A V69.2 HIGH-RISK SEXUAL BEHAVIOR 03/20/2013 LINH CONVEYOR MECHANIC, LAZARA A 131.01 VAGINITIS (TRICHOMONAS VAGINALIS) 03/20/2013 LINH CONVEYOR MECHANIC, LAZARA A V01.6 EXPOSURE TO VENEREAL DISEASES 03/20/2013 LINH CONVEYOR MECHANIC, LAZARA A V65.45 STD COUNSELING 03/20/2013 LINH CONVEYOR MECHANIC, LAZARA A V69.2 HIGH-RISK SEXUAL BEHAVIOR 03/20/2013 [...] K V69.2 HIGH-RISK SEXUAL BEHAVIOR 03/20/2013 SAINZ DO [...] DO SHAY K V65.45 STD COUNSELING 03/20/2013 EMELI HUGHES SHAY K V69.2 HIGH-RISK SEXUAL BEHAVIOR 03/20/2013 SAINZ DO SHAY K 131.01 VAGINITIS (TRICHOMONAS VAGINALIS) 03/20/2013 SAINZ DO SHAY K V01.6 EXPOSURE TO VENEREAL DISEASES 03/20/2013 SAINZ DO SHAY K V65.45 STD COUNSELING 03/20/2013 SAINZ DO SHAY K V69.2 HIGH-RISK SEXUAL BEHAVIOR 03/20/2013 SAINZ DO SHAY K 131.01 VAGINITIS (TRICHOMONAS VAGINALIS) 03/20/2013 EMELI HUGHES SHAY K V01.6 EXPOSURE TO VENEREAL DISEASES 03/20/2013 SAINZ DO SHAY K V65.45 STD COUNSELING 03/20/2013 SAINZ DO SHAY K V69.2 HIGH-RISK SEXUAL BEHAVIOR 03/20/2013 SAINZ DO SHAY K 131.01 VAGINITIS (TRICHOMONAS VAGINALIS) 03/20/2013 SAINZ DO SHAY K V01.6 EXPOSURE TO VENEREAL DISEASES 03/20/2013 SAINZ DO SHAY K V65.45 STD COUNSELING 03/20/2013 SAINZ DO SHAY K V69.2 HIGH-RISK SEXUAL BEHAVIOR 03/20/2013 SAINZ DO [...] APRN A V69.2 HIGH-RISK SEXUAL BEHAVIOR 03/20/2013 TAWNY SAINZ DOA K 131.01 VAGINITIS (TRICHOMONAS VAGINALIS) 03/20/2013 TAWNY SAINZ DOA K V01.6 EXPOSURE TO VENEREAL DISEASES 03/20/2013 TAWNY SAINZ DOA K V65.45 STD COUNSELING 03/20/2013 TAWNY SAINZ DOA K V69.2 HIGH-RISK SEXUAL BEHAVIOR 03/20/2013 BENSON NAVARRO APRN 131.01 VAGINITIS (TRICHOMONAS VAGINALIS) 03/20/2013 BENSON NAVARRO APRN V01.6 EXPOSURE TO VENEREAL DISEASES 03/20/2013 BENSON NAVARRO APRN V65.45 STD COUNSELING 03/20/2013 BENSON NAVARRO APRN V69.2 HIGH-RISK SEXUAL BEHAVIOR 03/20/2013 LINH BREWERLAZARA Fernandez A 131.01 VAGINITIS (TRICHOMONAS VAGINALIS) 03/20/2013 LINH BREWERJim LAZARA A V01.6 EXPOSURE TO VENEREAL DISEASES 03/20/2013 LINH LAN LAZARA A V65.45 STD COUNSELING 03/20/2013 LINH LAN LAZARA A V69.2 HIGH-RISK SEXUAL BEHAVIOR 03/20/2013 SHAY SAINZ DO K 131.01 VAGINITIS (TRICHOMONAS VAGINALIS) 03/20/2013 EMELI HUGHES SHAY K V01.6 EXPOSURE TO VENEREAL DISEASES 03/20/2013 EMELI HUGHES SHAY K V65.45 STD COUNSELING 03/20/2013 TAWNY SAINZ DOA K V69.2 HIGH-RISK SEXUAL BEHAVIOR 03/20/2013 BENSON NAVARRO APRN 131.01 VAGINITIS (TRICHOMONAS VAGINALIS) 03/20/2013 BENSON NAVARRO APRN V01.6 EXPOSURE TO VENEREAL DISEASES 03/20/2013 BENSON NAVARRO APRN V65.45 STD COUNSELING 03/20/2013 BENSON NAVARRO APRN V69.2 HIGH-RISK SEXUAL BEHAVIOR 03/20/2013 LINHLAZARA Fernandez APRN A 131.01 VAGINITIS (TRICHOMONAS VAGINALIS) 03/20/2013 LINH BREWERLAZARA Fernandez A V01.6 EXPOSURE TO VENEREAL DISEASES 03/20/2013 LINH CONVEYOR MECHANICLAZARA Fernandez A V65.45 STD COUNSELING 03/20/2013 LINH CONVEYOR MECHANICLAZARA Fernandez A V69.2 HIGH-RISK SEXUAL BEHAVIOR 03/20/2013 BENSON NAVARRO APRN 131.01 VAGINITIS (TRICHOMONAS VAGINALIS) 03/20/2013 BENSON NAVARRO APRN V01.6 EXPOSURE TO VENEREAL DISEASES 03/20/2013 BENSON NAVARRO APRN V65.45 STD COUNSELING 03/20/2013 BENSON NAVARRO APRN V69.2 HIGH-RISK SEXUAL BEHAVIOR 06/04/2013 BENSON NAVARRO APRN 719.47 PAIN- ANKLE 06/04/2013 BENSON NAVARRO APRN 789.07 ABDOMINAL PAIN GENERALIZED 06/04/2013 BNESON NAVARRO APRN E956 SUICIDE AND SELF-INFLICTED INJURY BY CUTTING AND PIERCING INSTRUMENT 06/04/2013 MELANIE CONVEYOR MECHANIC, BENSON R E958.9 SUICIDE AND SELF-INFLICTED INJURY BY UNSPECIFIED MEANS 06/04/2013 [facility], PATRICE A 719.47 PAIN- ANKLE 06/04/2013 DOWELL CS, PATRICE A 789.07 ABDOMINAL PAIN GENERALIZED 06/04/2013 [facility], PATRICE A E956 SUICIDE AND SELF-INFLICTED INJURY BY CUTTING AND PIERCING INSTRUMENT 06/04/2013 [facility], PATRICE A E958.9 SUICIDE AND SELF-INFLICTED INJURY BY UNSPECIFIED MEANS 06/04/2013 MELANIE CONVEYOR MECHANIC, BENSON R 719.47 PAIN- ANKLE 06/04/2013 MELANIE CONVEYOR MECHANIC, BENSON R 789.07 ABDOMINAL PAIN GENERALIZED 06/04/2013 MELANIE LAN BENSON R E956 SUICIDE AND SELF-INFLICTED INJURY BY CUTTING AND PIERCING INSTRUMENT 06/04/2013 RALPH NAVARRO APRNINA R E958.9 SUICIDE AND SELF-INFLICTED INJURY BY UNSPECIFIED MEANS 06/04/2013 MELANIE LAN BENSON R 719.47 PAIN- ANKLE 06/04/2013 MELANIE BREWERN, BENSON R 789.07 ABDOMINAL PAIN GENERALIZED 06/04/2013 MELANIE LAN, BENSON R E956 SUICIDE AND SELF-INFLICTED INJURY [...] BY UNSPECIFIED MEANS 06/04/2013 TAWNY SAINZ DOA K 719.47 PAIN- ANKLE 06/04/2013 SHAY SAINZ DO K 789.07 ABDOMINAL PAIN GENERALIZED 06/04/2013 SHAY SAINZ DO E956 SUICIDE AND SELF-INFLICTED INJURY BY CUTTING AND PIERCING INSTRUMENT 06/04/2013 TAWNY SAINZ DOA K E958.9 SUICIDE AND SELF-INFLICTED INJURY BY UNSPECIFIED MEANS 06/04/2013 LINH LAN, LAZARA A 719.47 PAIN- ANKLE 06/04/2013 LINH BREWERN, LAZARA A 789.07 ABDOMINAL PAIN GENERALIZED 06/04/2013 LINH BREWERN, LAZARA A E956 SUICIDE AND SELF-INFLICTED INJURY BY CUTTING AND PIERCING INSTRUMENT 06/04/2013 LINH LAN, LAZARA A E958.9 SUICIDE AND SELF-INFLICTED INJURY BY UNSPECIFIED MEANS 06/04/2013 SAINZ DO, SHAY K 719.47 PAIN- ANKLE 06/04/2013 SAINZ DO, SHAY K 789.07 ABDOMINAL PAIN GENERALIZED 06/04/2013 SAINZ DO, SHAY K E956 SUICIDE AND SELF-INFLICTED INJURY BY CUTTING AND PIERCING INSTRUMENT 06/04/2013 SAINZ DO, SHAY K E958.9 SUICIDE AND SELF-INFLICTED INJURY BY UNSPECIFIED MEANS 06/04/2013 LINH LAN, LAZARA A 719.47 PAIN- ANKLE 06/04/2013 LINH LAN, LAZARA A 789.07 ABDOMINAL PAIN GENERALIZED 06/04/2013 LINH BREWERN, LAZARA A E956 SUICIDE AND SELF-INFLICTED INJURY BY CUTTING AND PIERCING INSTRUMENT 06/04/2013 LINH BREWERN, LAZARA A E958.9 SUICIDE AND SELF-INFLICTED INJURY BY UNSPECIFIED MEANS 06/04/2013 LINH BREWERN, LAZARA A 719.47 PAIN- ANKLE 06/04/2013 LINH BREWERN, LAZARA A 789.07 ABDOMINAL PAIN GENERALIZED 06/04/2013 LINH BERWERN, LAZARA A E956 SUICIDE AND SELF-INFLICTED INJURY [...] INJURY BY CUTTING AND PIERCING INSTRUMENT 06/04/2013 SAIZN DOTAWNYA K E958.9 SUICIDE AND SELF-INFLICTED INJURY BY UNSPECIFIED MEANS 06/04/2013 ROBERTO FIGUEROA MD 719.47 PAIN- ANKLE 06/04/2013 ROBERTO FIGUEROA MD 789.07 ABDOMINAL PAIN GENERALIZED 06/04/2013 ROBERTO FIGUEROA MD N E956 SUICIDE AND SELF-INFLICTED INJURY BY CUTTING AND PIERCING INSTRUMENT 06/04/2013 ROBERTO FIGUEROA MD E958.9 SUICIDE AND SELF-INFLICTED INJURY BY UNSPECIFIED MEANS 06/04/2013 LAZARA MELTON APRN A 719.47 PAIN- ANKLE 06/04/2013 LAZARA MELTON APRN A 789.07 ABDOMINAL PAIN GENERALIZED 06/04/2013 LAZARA MELTON APRN E956 SUICIDE AND SELF-INFLICTED INJURY BY CUTTING AND PIERCING INSTRUMENT 06/04/2013 LAZARA MELTON APRN E958.9 SUICIDE AND SELF-INFLICTED INJURY BY UNSPECIFIED MEANS 06/04/2013 LINH CONVEYOR MECHANIC, LAZARA A 719.47 PAIN- ANKLE 06/04/2013 LINH CONVEYOR MECHANIC, LAZARA A 789.07 ABDOMINAL PAIN GENERALIZED 06/04/2013 LINH CONVEYOR MECHANIC, LAZARA A E956 SUICIDE AND SELF-INFLICTED INJURY [...] R 789.07 ABDOMINAL PAIN GENERALIZED 06/04/2013 MELANIE LAN BENSON R E956 SUICIDE AND SELF-INFLICTED INJURY BY CUTTING AND PIERCING INSTRUMENT 06/04/2013 MELANIE LAN BENSON R E958.9 SUICIDE AND SELF-INFLICTED INJURY BY UNSPECIFIED MEANS 06/04/2013 LINHBRANDEN BREWERN, LAZARA A 719.47 PAIN- ANKLE 06/04/2013 LINH BREWERNJASONLAZARA A 789.07 ABDOMINAL PAIN GENERALIZED 06/04/2013 LINHBRANDEN BREWERN, LAZARA A E956 SUICIDE AND SELF-INFLICTED INJURY BY CUTTING AND PIERCING INSTRUMENT 06/04/2013 LINHBRANDEN BREWERNJASONLAZARA A E958.9 SUICIDE AND SELF-INFLICTED INJURY BY [...] R 789.07 ABDOMINAL PAIN GENERALIZED 06/04/2013 MELANIE LAN, BENSON R E956 SUICIDE AND SELF-INFLICTED INJURY BY CUTTING AND PIERCING INSTRUMENT 06/04/2013 MELANIE LAN, BENSON R E958.9 SUICIDE AND SELF-INFLICTED INJURY BY UNSPECIFIED MEANS 06/04/2013 JASON MELTON APRNIDI A 719.47 PAIN- ANKLE 06/04/2013 LINH LAN, LAZARA A 789.07 ABDOMINAL PAIN GENERALIZED 06/04/2013 LINH LAN, LAZARA A E956 SUICIDE AND SELF-INFLICTED INJURY BY CUTTING AND PIERCING INSTRUMENT 06/04/2013 LINH LAN, LAZARA A E958.9 SUICIDE AND SELF-INFLICTED INJURY [...] TEST POSITIVE RESULT 06/20/2013 BENSON NAVARRO APRN V72.42 EXAMINATION OR TEST POSITIVE RESULT 06/20/2013 SAI PEREZ MD V72.42 EXAMINATION OR TEST POSITIVE RESULT 06/20/2013 SHAY SAINZ DO V72.42 EXAMINATION OR TEST POSITIVE RESULT 06/20/2013 LAZARA MELTON APRN A V72.42 EXAMINATION OR TEST POSITIVE RESULT 06/20/2013 SHAY SAINZ DO V72.42 EXAMINATION OR TEST POSITIVE RESULT 06/20/2013 LAZARA MELTON APRN A V72.42 EXAMINATION OR TEST POSITIVE RESULT 06/20/2013 LAZARA MELTON APRN V72.42 EXAMINATION OR TEST POSITIVE RESULT [...] V72.42 EXAMINATION OR TEST POSITIVE RESULT 06/20/2013 HENRY CONROY, ROBERTO Fernandez V72.42 EXAMINATION OR TEST POSITIVE RESULT 06/20/2013 LINH LAN LAZARA A V72.42 EXAMINATION OR TEST POSITIVE RESULT 06/20/2013 LINH LAN LAZARA A V72.42 EXAMINATION OR TEST POSITIVE RESULT 06/20/2013 SAINZ DO, SHAY K V72.42 EXAMINATION OR TEST POSITIVE RESULT 06/20/2013 MELANIE LAN BENSON R V72.42 EXAMINATION OR TEST POSITIVE RESULT 06/20/2013 LINH LAN LAZARA A V72.42 EXAMINATION OR TEST POSITIVE RESULT 06/20/2013 SAINZ DO, SHAY K V72.42 EXAMINATION OR TEST POSITIVE RESULT 06/20/2013 MELANIE LAN BENSON R V72.42 EXAMINATION OR TEST POSITIVE RESULT 06/20/2013 LINH LAN LAZARA A V72.42 EXAMINATION OR TEST POSITIVE RESULT 06/20/2013 MELANIE LAN BENSON R V72.42 EXAMINATION OR TEST POSITIVE RESULT 06/25/2013 MELANIE LAN BENSON R V23.83 SUPERVISION OF HIGH-RISK WITH YOUNG PRIMIGRAVIDA 06/25/2013 CHRIS CONROY, SAI V23.83 SUPERVISION OF HIGH-RISK WITH YOUNG PRIMIGRAVIDA [...] SUPERVISION OF HIGH-RISK WITH YOUNG PRIMIGRAVIDA 06/25/2013 ROBERTO FIGUEROA MD V23.83 SUPERVISION OF HIGH-RISK WITH YOUNG PRIMIGRAVIDA 06/25/2013 LAZARA MELTON APRN V23.83 SUPERVISION OF HIGH-RISK WITH YOUNG PRIMIGRAVIDA 06/25/2013 LAZARA MELTON APRN V23.83 SUPERVISION OF HIGH-RISK WITH YOUNG PRIMIGRAVIDA 06/25/2013 SHAY SAINZ DO V23.83 SUPERVISION OF HIGH-RISK WITH YOUNG PRIMIGRAVIDA 06/25/2013 BENSON NAVARRO APRN V23.83 SUPERVISION OF HIGH-RISK WITH YOUNG PRIMIGRAVIDA 06/25/2013 LINH CONVEYOR MECHANIC, LAZARA A V23.83 SUPERVISION OF HIGH-RISK WITH YOUNG PRIMIGRAVIDA 06/25/2013 EMELI DOSHAY K V23.83 SUPERVISION OF HIGH-RISK WITH YOUNG PRIMIGRAVIDA 06/25/2013 BENSON NAVARRO APRN V23.83 SUPERVISION OF HIGH-RISK WITH YOUNG PRIMIGRAVIDA 06/25/2013 LAZARA MELTON APRN A V23.83 SUPERVISION OF HIGH-RISK WITH YOUNG PRIMIGRAVIDA 06/25/2013 BENSON NAVARRO APRN V23.83 SUPERVISION OF HIGH-RISK WITH YOUNG PRIMIGRAVIDA 07/03/2013 CHRIS CONROY, SAI 300.01 AN PANIC DIS W/O AGORA 07/03/2013 EMELI DO, SHAY K 300.01 AN PANIC DIS W/O AGORA 07/03/2013 LAZARA MELTON APRN A 300.01 AN PANIC DIS W/O AGORA 07/03/2013 EMELI DO, SHAY K 300.01 AN PANIC DIS W/O AGORA 07/03/2013 LAZARA MELTON APRN A 300.01 AN PANIC DIS W/O AGORA 07/03/2013 LAZARA EMLTON APRN A 300.01 AN PANIC DIS W/O [...] 300.01 AN PANIC DIS W/O AGORA 07/03/2013 ROBERTO FIGUEROA MD 300.01 AN PANIC DIS W/O AGORA 07/03/2013 LINH CONVEYOR MECHANIC, LAZARA A 300.01 AN PANIC DIS W/O AGORA 07/03/2013 LINH CONVEYOR MECHANIC, LAZARA A 300.01 AN PANIC DIS W/O AGORA 07/03/2013 SAINZ DO, SHAY K 300.01 AN PANIC DIS W/O AGORA 07/03/2013 MELANIE LAN, BENSON R 300.01 AN PANIC DIS W/O AGORA 07/03/2013 LINH CONVEYOR MECHANIC, LAZARA A 300.01 AN PANIC DIS W/O AGORA 07/03/2013 SAINZ DO, SHAY K 300.01 AN PANIC DIS W/O AGORA 07/03/2013 MELANIE LAN BENSON R 300.01 AN PANIC DIS W/O AGORA 07/03/2013 LINH CONVEYOR MECHANIC, LAZARA A 300.01 AN PANIC DIS W/O AGORA 07/03/2013 MELANIE LAN BENSON R 300.01 AN PANIC DIS W/O AGORA 07/15/2013 SAINZ DO, SHAY K V74.5 STD SCREEN 07/15/2013 LINH CONVEYOR MECHANIC, LAZARA A V74.5 STD SCREEN 07/15/2013 SAINZ DO, SHAY K V74.5 STD SCREEN 07/15/2013 LINH CONVEYOR MECHANIC, LAZARA A V74.5 STD SCREEN 07/15/2013 LINH CONVEYOR MECHANIC, LAZARA A V74.5 STD SCREEN 07/15/2013 SAINZ DO, HSAY K V74.5 STD SCREEN 07/15/2013 MIKE ANDERSON [...] DO, SHAY K V74.5 STD SCREEN 07/15/2013 ROBERTO FIGUEROA MD V74.5 STD SCREEN 07/15/2013 LINH CONVEYOR MECHANIC, LAZARA A V74.5 STD SCREEN 07/15/2013 LINH CONVEYOR MECHANIC, LAZARA A V74.5 STD SCREEN 07/15/2013 SHAY SAINZ DO K V74.5 STD SCREEN 07/15/2013 MELANIE CONVEYOR MECHANIC, BENSON R V74.5 STD SCREEN 07/15/2013 LINH CONVEYOR MECHANIC, LAZARA A V74.5 STD SCREEN 07/15/2013 SHAY SAINZ DO K V74.5 STD SCREEN 07/15/2013 MELANIE CONVEYOR MECHANIC, BENSON R V74.5 STD SCREEN 07/15/2013 LINH CONVEYOR MECHANIC, LAZARA A V74.5 STD SCREEN 07/15/2013 MELANIE CONVEYOR MECHANIC, BENSON R V74.5 STD SCREEN 08/12/2013 SHAY SAINZ DO 647.20 COMPL OF - STD UNSPECIFIED 08/12/2013 SHAY SAINZ DO V04.3 RUBELLA NON-IMMUNE - NEED FOR VACCINATION 08/12/2013 LINHLAZARA Fernandez APRN A 647.20 COMPL OF - STD UNSPECIFIED 08/12/2013 LINHLAZARA Fernandez APRN A V04.3 RUBELLA NON-IMMUNE - NEED FOR VACCINATION 08/12/2013 LINH APRN, LAZARA A 647.20 COMPL OF - STD UNSPECIFIED 08/12/2013 LAZARA MELTON APRN A V04.3 RUBELLA NON-IMMUNE - NEED [...] NEED FOR VACCINATION 08/12/2013 ROBERTO FIGUEROA MD 647.20 COMPL OF - STD UNSPECIFIED 08/12/2013 ROBERTO FIGUEROA MD V04.3 RUBELLA NON-IMMUNE - NEED FOR VACCINATION 08/12/2013 LINH LAN, LAZARA A 647.20 COMPL OF - STD UNSPECIFIED 08/12/2013 LAZARA MELTON APRN A V04.3 RUBELLA NON-IMMUNE - NEED FOR VACCINATION 08/12/2013 LINH LAN, LAZARA A 647.20 COMPL OF - STD UNSPECIFIED 08/12/2013 LAZARA MELTON APRN A V04.3 RUBELLA NON-IMMUNE - NEED FOR VACCINATION 08/12/2013 SAINZ DO, SHAY K 647.20 COMPL OF - STD UNSPECIFIED 08/12/2013 SAINZ DO, SHAY K V04.3 RUBELLA NON-IMMUNE - NEED FOR VACCINATION 08/12/2013 BENSON NAVARRO APRN 647.20 COMPL OF - STD UNSPECIFIED 08/12/2013 MELANIE CONVEYOR MECHANIC, BENSON R V04.3 RUBELLA NON-IMMUNE - NEED FOR VACCINATION 08/12/2013 LAZARA MELTON APRN A 647.20 COMPL OF - STD UNSPECIFIED 08/12/2013 JASON MELTON APRNIDI A V04.3 RUBELLA NON-IMMUNE - NEED FOR VACCINATION 08/12/2013 SAINZ DO, SHAY K 647.20 COMPL OF - STD UNSPECIFIED 08/12/2013 SAINZ DO, SHAY K V04.3 RUBELLA NON-IMMUNE - NEED FOR VACCINATION 08/12/2013 MELANIE LAN, BENSON R 647.20 COMPL OF - STD UNSPECIFIED 08/12/2013 MELANIE LAN, BENSON R V04.3 RUBELLA NON-IMMUNE - NEED FOR VACCINATION 08/12/2013 LAZARA MELTON APRN A 647.20 COMPL OF - STD UNSPECIFIED 08/12/2013 LAZARA MELTON APRN A V04.3 RUBELLA NON-IMMUNE - NEED FOR VACCINATION 08/12/2013 MELANIE LAN BENSON R 647.20 COMPL OF - STD UNSPECIFIED 08/12/2013 RALPH NAVARRO APRNINA R V04.3 RUBELLA NON-IMMUNE - NEED FOR VACCINATION 09/03/2013 LAZARA MELTON APRN A 133.0 SCABIES 09/03/2013 LAZARA MELTON APRN A 133.0 SCABIES 09/03/2013 SAINZ DO, SHAY [...] SAINZ DO, SHAY K 133.0 SCABIES 09/03/2013 HENRY CONROY, ROBERTO Fernandez 133.0 SCABIES 09/03/2013 LINH CONVEYOR MECHANIC, LAZARA A 133.0 SCABIES 09/03/2013 LINH CONVEYOR MECHANIC, LAZARA A 133.0 SCABIES 09/03/2013 SAINZ DO, SHAY K 133.0 SCABIES 09/03/2013 MELANIE CONVEYOR MECHANIC, BENSON R 133.0 SCABIES 09/03/2013 LINH CONVEYOR MECHANIC, LAZARA A 133.0 SCABIES 09/03/2013 SAINZ DO, SHAY K 133.0 SCABIES 09/03/2013 MELANIE CONVEYOR MECHANIC, BENSON R 133.0 SCABIES 09/03/2013 LINH CONVEYOR MECHANIC, LAZARA A 133.0 SCABIES 09/03/2013 MELANIE CONVEYOR MECHANIC, BENSON R 133.0 SCABIES 10/07/2013 SAINZ DO, [...] N V22.0 , NORMAL FIRST 10/07/2013 LINH CONVEYOR MECHANIC, LAZARA A V22.0 , NORMAL FIRST 10/07/2013 LINH CONVEYOR MECHANIC, LAZARA A V22.0 , NORMAL FIRST 10/07/2013 SAINZ DO, SHAY K V22.0 , NORMAL FIRST 10/07/2013 MELANIE CONVEYOR MECHANIC, BENSON R V22.0 , NORMAL FIRST 10/07/2013 LINH CONVEYOR MECHANIC, LAZARA A V22.0 , NORMAL FIRST 10/07/2013 SAINZ DO, SHAY K V22.0 , NORMAL FIRST 10/07/2013 MELANIE CONVEYOR MECHANIC, BENSON R V22.0 , NORMAL FIRST 10/07/2013 LINH CONVEYOR MECHANIC, LAZARA A V22.0 , NORMAL FIRST 10/07/2013 MELANIE CONVEYOR MECHANIC, BENSON R V22.0 , NORMAL FIRST 10/12/2013 [...] Fernandez 465.9 UPPER RESPIRATORY INFECTION 10/12/2013 LINH CONVEYOR MECHANIC, LAZARA A 465.9 UPPER RESPIRATORY INFECTION 10/12/2013 LINH CONVEYOR MECHANIC, LAZARA A 465.9 UPPER RESPIRATORY INFECTION 10/12/2013 SAINZ DO, SHAY K 465.9 UPPER RESPIRATORY INFECTION 10/12/2013 MELANIE CONVEYOR MECHANIC, BENSON R 465.9 UPPER RESPIRATORY INFECTION 10/12/2013 LINH CONVEYOR MECHANIC, LAZARA A 465.9 UPPER RESPIRATORY INFECTION 10/12/2013 SAINZ DO, SHAY K 465.9 UPPER RESPIRATORY INFECTION 10/12/2013 MELANIE CONVEYOR MECHANIC, BENSON R 465.9 UPPER RESPIRATORY INFECTION 10/12/2013 LINH CONVEYOR MECHANIC, LAZARA A 465.9 UPPER RESPIRATORY INFECTION 10/12/2013 MELANIE CONVEYOR MECHANIC, BENSON R 465.9 UPPER RESPIRATORY INFECTION 10/23/2013 SALVADOR CONROY, MILKA T Ot 789.00 ABDOMINAL PAIN, UNSPECIFIED SITE 10/23/2013 SALVADOR CONROY, MILKA Ward Ot V22.2 PREG STATE, INCIDENTAL 10/23/2013 SALVADOR CONROY, MILKA Ward Ot V71.4 OBSERV-ACCIDENT NEC 10/23/2013 SAIZN DO, SHAY K Ot V22.2 PREG STATE, INCIDENTAL 10/23/2013 SAINZ DO, SHAY K Ot V71.4 OBSERV-ACCIDENT NEC 11/12/2013 SAINZ SHAY HUGHES Ot 648.93 OTH CURR COND-ANTEPARTUM 11/12/2013 SAINZ SHAY HUGHES Ot 789.00 ABDOMINAL PAIN, UNSPECIFIED SITE 11/18/2013 SAINZ DO SHAY K V77.1 DIABETES SCREENING 11/18/2013 SAINZ [...] V78.0 ANEMIA SCREENING 11/18/2013 ROBERTO FIGUEROA MD N V77.1 DIABETES SCREENING 11/18/2013 ROBERTO FIGUEROA MD V78.0 ANEMIA SCREENING 11/18/2013 LAZARA MELTON APRN A V77.1 DIABETES SCREENING 11/18/2013 LAZARA MELTON APRN A V78.0 ANEMIA SCREENING 11/18/2013 JASON MELTON APRNIDI A V77.1 DIABETES SCREENING 11/18/2013 LAZARA MELTON APRN A V78.0 ANEMIA SCREENING 11/18/2013 SAINZ DO, SHAY K V77.1 DIABETES SCREENING 11/18/2013 ASINZ DO, SHAY K V78.0 ANEMIA SCREENING 11/18/2013 BENSON NAVARRO APRN R V77.1 DIABETES SCREENING 11/18/2013 RALPH NAVARRO APRNINA R V78.0 ANEMIA SCREENING 11/18/2013 LAZARA MELTON APRN A V77.1 DIABETES SCREENING 11/18/2013 LINH CONVEYOR MECHANIC, LAZARA A V78.0 ANEMIA SCREENING 11/18/2013 SAINZ DO, SHAY K V77.1 DIABETES SCREENING 11/18/2013 SAINZ DO, SHAY K V78.0 ANEMIA SCREENING 11/18/2013 MELANIE CONVEYOR MECHANIC, BENSON R V77.1 DIABETES SCREENING 11/18/2013 MELANIE CONVEYOR MECHANIC, BENSON R V78.0 ANEMIA SCREENING 11/18/2013 LINH CONVEYOR MECHANIC, LAZARA A V77.1 DIABETES SCREENING 11/18/2013 LINH CONVEYOR MECHANIC, LAZARA A V78.0 ANEMIA SCREENING 11/18/2013 MELANIE CONVEYOR MECHANIC, BENSON R V77.1 DIABETES SCREENING 11/18/2013 MELANIE CONVEYOR MECHANIC, BENSON R V78.0 ANEMIA SCREENING 01/06/2014 SAINZ DO, SHAY K V78.0 ANEMIA SCREENING 01/06/2014 SAINZ DO, SHAY K V78.0 ANEMIA SCREENING 01/06/2014 SAINZ DO, SHAY K V78.0 ANEMIA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
[2018-09-19] MEDS ORDERED: LACTATED RINGERS 1,000 ML IV SCH (10:03)
[2018-09-19] MEDS ORDERED: ONDANSETRON 4 MG/2 ML (SDV) Z0FRAN IV PRN (10:15)
[2018-09-19] MEDS ORDERED: diphenhydrAMINE 50 MG/ML INJ (BENADRYL) IV PRN (10:15)
[2018-09-19] MEDS ORDERED: EPIDURAL (SUFENTA 0.6MCG/ML BUPIVA 0.125%) 100 ML BAG EPI PRN (10:15)
[2018-09-19] MEDS ORDERED: NALOXONE 0.4 MG/ML 1 ML (NARCAN) VIAL IV PRN (10:15)
--- NOTE | 2018-09-19 10:36 | NUR ---
Pitocin increased to 999ml/hr as verbal order from Dr hunter at this time. 1037 spontaneous vaginal delivery of placenta with cord attached. fundal massage per dr hunter with moderate rubra noted no clots expressed. 1040 pericare, pad under pt. ffu/1 with lt rubra noted, no clots expressed. pt assisted out of lithotomy position and to sf position. plan of care reviewed with pt regarding recovery. epidural infusion stopped and epidural catheter discontinued. 1055 ffu/0 with lt rubra noted, no clots expressed. ice water at bedside. 1110 ffu/0 with lt-mod rubra noted, no clots expressed. pt infant. 1125 vss. ffu/0 with lt rubra noted, no clots expressed. family at bedside.
--- NOTE | 2018-09-19 10:48 | OB Labor & Delivery Record ---
Vag Delivery Note Vag Delivery Note Date of Delivery: 09/19/18 Preoperative Diagnosis: Marisela Ballesteros is a 23 /Para 2 / 0101, Gestational Age (wks)39with 0 days Postoperative Diagnosis: Same Surgeon: ROBERTO FIGUEROA Anesthesia: Epidural Delivery Type: Spontaneous vaginal delivery Findings: Viable female infant, apgars 9/9 weight 6#4 Lacerations: Left periurethral abrasion Intact placenta with 3 vessel cord. No nuchal cord, body cord or shoulder dystocia Estimated Blood Loss: 200 ml Complications: None Condition: Stable Description of Procedure: The patient is a 23 year old female who presented for elective IOL. She was admitted and informed consent was obtained. Her labor course was unremarkable. She progressed to complete dilatation and began to push. She was then set up for delivery. The 's head was delivered atraumatically in the TUYET position. The shoulders and remainder of the infant's body were then delivered without difficulty. Upon delivery, the was placed on maternal abdomen. After a delay, the cord was doubly clamped and cut and the infant was handed off to the pediatric staff. An intact placenta with 3- vessel cord delivered via Gonzalez and there was found to be minimal bleeding.~ Vigorous fundal massage was performed and the fundus was found to be firm. IV oxytocin was given. Examination of the vagina and perineum revealed a left periurethral abrasion not requiring repair. Following the delivery, sponge, instrument and needle counts were correct. Mom and baby were both in stable condition in the labor suite. Vitals - Labs Labs Laboratory Tests 09/19/18 07:55: White Blood Count 11.6H, Red Blood Count 4.18L, Hemoglobin 12.6, Hematocrit 38, Mean Corpuscular Volume 90, Mean Corpuscular Hemoglobin 30, Mean Corpuscular Hemoglobin Concent 33, Red Cell Distribution Width 13.1, Platelet Count 226, Mean Platelet Volume 11.3H, Neutrophils (%) (Auto) 69, Lymphocytes (%) (Auto) 21 , Monocytes (%) (Auto) 7, Eosinophils (%) (Auto) 2, Basophils (%) (Auto) 0, Neutrophils # (Auto) 8.0H, Lymphocytes # (Auto) 2.5, Monocytes # (Auto) 0.8, Eosinophils # (Auto) 0.3, Basophils # (Auto) 0.0 ROBERTO FIGUEROA MD September 19, 2018 10:48
[2018-09-19] MEDS ORDERED: WITCH HAZEL(TUCKS) 40 EA JAR TOP PRN (12:00)
[2018-09-19] MEDS ORDERED: IBUPROFEN 600 MG (MOTRIN) TAB PO SCH (12:00)
[2018-09-19] MEDS ORDERED: BENZOCAINE/MENTHOL (DERMOPLAST) 56 ML CAN TP PRN (12:00)
--- NOTE | 2018-09-19 12:25 | NUR ---
pericare, pad changed and underwear on. left leg remains heavy from epidural and unable to lift off bed at this time. Will re-evaluate shortly to be transferred to pp room. family at bedside. pt denies needs.
--- NOTE | 2018-09-19 13:45 | NUR ---
Transferred to room 309 via wheelchair per assistance of Yamile Wahl
--- NOTE | 2018-09-19 13:56 | NUR ---
Pt reports having voided. pericare/pad supplies in bathroom for use.
[2018-09-19] MEDS ORDERED: CATHETER FLUSH 10 ML SYR IV SCH ×2 (14:00)
[2018-09-19] MEDS ORDERED: ACETAMINOPHEN 500 MG TAB (TYLENOL) PO SCH (14:00)
[2018-09-19] MEDS ORDERED: IBUP-844 PO (17:29)
--- NOTE | 2018-09-19 17:30 | Discharge Instructions ---
Discharge Inst-Women's Serv Depart Medications New, Converted or Re-Newed RX: RX on Chart New Medications: Ibuprofen (Ibu) 600 Mg Tablet 600 MG PO Q6HR PRN for PAIN-MODERATE, #60 TAB 0 Refills Continued Medications: Xfc328/Iron Fumarate/FA/Dss ( 19 Tablet) 1 Each Tablet 1 EACH PO DAILY, TAB Follow Up/Instructions Goal/Follow Up: Follow up with Dr. Mcclure in 6 weeks for visit. Activity Activity: Activity as Tolerated Driving Instructions: You May Drive Nothing Inside Vagina: No [place], No [place], No [place]ampons Diet Discharge Diet: Regular Diet Symptoms to Report to : Swelling Increased, Bleeding Excessive, Fever Over 101 Degrees F, Pain/Pressure in Chest, Vaginal Bleeding Increase, Cramps in Feet or Legs, Vaginal Discharge Foul, Dizziness/Fainting, Nausea/Vomiting, Shortness of Breath For Any Problems or Questions: Contact Your Physician Copies To 1: ROBERTO MCCLURE MD, BETHANY N MD September 19, 2018 17:30
--- NOTE | 2018-09-19 17:31 | Discharge Summary ---
Diagnosis/Chief Complaint Date of Admission September 19, 2018 at 06:50 Date of Discharge September 19, 2018 Admission Diagnosis Admission Diagnosis Term intrauterine 39 weeks gestation Discharge Diagnosis S/P spontaneous vaginal delivery Chief Complaint/HPI Chief Complaint/HPI 23 yo G2 now P2102 presented for IOL at 39 weeks. Discharge Summary-Simple/Stand Procedures Spontaneous vaginal delivery Discharge Physical Examination Allergies: Coded Allergies: sertraline (Verified Allergy, Mild, 09/19/18) swelling vancomycin (Unverified Allergy, Mild, HIVES, 08/08/14) prednisone (Unverified Allergy, Unknown, 01/19/14) red dye (Verified Allergy, Unknown, 01/19/14) Vitals & I&Os Vital Sign - Last 12Hours Date Time Temp Pulse Resp B/P (MAP) Pulse Ox O2 Delivery O2 Flow Rate FiO2 09/19/18 15:35 98.1 81 18 127/71 (89) 97 Room Air Hospital Course Patient had rapid uncomplicated labor and delivery, minimal bleeding with no lacerations. required NICU transfer, so mother was allowed to d/c early given uncomplicated status, no anemia before delivery and asymptomatic with normal vital signs several hours. Labs Laboratory Tests Test 09/19/18 07:55 Range/Units White Blood Count 11.6 H 4.3-11.0 10^3/uL Red Blood Count 4.18 L 4.35-5.85 10^6/uL Hemoglobin 12.6 11.5-16.0 G/DL Hematocrit 38 35-52 % Mean Corpuscular Volume 90 80-99 FL Mean Corpuscular Hemoglobin 30 25-34 PG Mean Corpuscular Hemoglobin Concent 33 32-36 G/DL Red Cell Distribution Width 13.1 10.0-14.5 % Platelet Count 226 130-400 10^3/uL Mean Platelet Volume 11.3 H 7.4-10.4 FL Neutrophils (%) (Auto) 69 42-75 % Lymphocytes (%) (Auto) 21 12-44 % Monocytes (%) (Auto) 7 0-12 % Eosinophils (%) (Auto) 2 0-10 % Basophils (%) (Auto) 0 0-10 % Neutrophils # (Auto) 8.0 H 1.8-7.8 X 10^3 Lymphocytes # (Auto) 2.5 1.0-4.0 X 10^3 Monocytes # (Auto) 0.8 0.0-1.0 X 10^3 Eosinophils # (Auto) 0.3 0.0-0.3 10^3/uL Basophils # (Auto) 0.0 0.0-0.1 10^3/uL Discharge Instructions to patient/family Please see electronic discharge instructions given to patient. Discharge Medications Reviewed and agree with Discharge Medication list on patient's Discharge Instruction sheet Clinical Quality Measures DVT/VTE Risk/Contraindication: Risk Factor Score Per Nursin RFS Level Per Nursing on Admit: 1=Low/No VTE PPX ROBERTO FIGUEROA MD September 19, 2018 17:31
--- NOTE | 2018-09-19 17:55 | NUR ---
Discharge instructions explained, signed and copy to patient. pt verbalized understanding of instructions. prescription for motrin given.
--- NOTE | 2018-09-19 18:25 | NUR ---
Discharged to home at this time. parents in [facility] with . infant to be transferred to [place].
[2018-09-20] MEDS ORDERED: PRENATAL VITAMIN 1 EA TAB PO SCH (07:00)
== END 2018-09-19 18:25 | disposition home or self-care (01) | DRG 807 ==
LOC: LDRP 06:50
PROVIDERS: ADMIT Family Medicine; ATTEND Family Medicine
PROC: 10E0XZZ Delivery of Products of Conception, External Approach (ICD-10-PCS; principal; 2018-09-19)
PROC: 3E033VJ Introduction of Other Hormone into Peripheral Vein, Percutaneous Approach (ICD-10-PCS; 2018-09-19)
DX: O99.344 Other mental disorders complicating childbirth (principal); F32.9 Major depressive disorder, single episode, unspecified; F41.9 Anxiety disorder, unspecified; O71.82 Other specified trauma to perineum and vulva; Z3A.39 39 weeks gestation of pregnancy; Z37.0 Single live birth; Z87.891 Personal history of nicotine dependence; Z87.51 Personal history of pre-term labor
CPT/HCPCS: 36415; 85025; 86850; 86900; 86901

== ENCOUNTER 2021-03-17 08:43 | Outpatient (CLI) | payer MEDICAID ==
[~2021-03-17 08:43] MED LIST changes: +IBUP-844 PO
[2021-03-17 09:21] LABS: BILIRUBIN,URINE NEGATIVE (NEGATIVE); CLARITY,URINE CLEAR; COLOR,URINE YELLOW; GLUCOSE, URINE (UA) NEGATIVE (NEGATIVE); KETONES,URINE NEGATIVE (NEGATIVE); LEUKOCYTE ESTERASE ,URINE 3+ (NEGATIVE); NITRITE,URINE NEGATIVE (NEGATIVE); PROTEIN,URINE NEGATIVE (NEGATIVE)
[2021-03-17 09:31] LABS: BACTERIA,URINE MODERATE /HPF
[2021-03-17 09:57] VITALS: BP 119/75
[2021-03-17 10:06] VITALS: BP 119/75
[2021-03-17] MEDS ORDERED: FLU QUADRIvalent (3YOA+) 60 mcg/0.5 ml 2021-22(AFLURIA) IM ONE (10:15)
[2021-03-17] MEDS ORDERED: NITR-65 PO (10:46)
[2021-03-17] MEDS ORDERED: FERR325T18 PO (10:48)
[2021-03-17 11:00] VITALS: BP 119/75
== END 2021-03-17 11:05 | disposition home or self-care (01) ==
LOC: LDRP 08:43 → WSo 08:43 → UNDOADMOB 08:43 → WSo 11:05 → UNDODISOB 11:05 → LDRP 15:26 → WS 17:28 → EDSTATUS 03-18 11:51
PROVIDERS: ATTEND Family Medicine
DX: O47.9 False labor, unspecified (principal); Z3A.00 Weeks of gestation of pregnancy not specified
CPT/HCPCS: 81000; 87088

== ENCOUNTER 2021-04-06 13:22 | Outpatient (CLI) | payer MEDICAID ==
[~2021-04-06] VITALS: Ht 147.3 cm; Wt 72.6 kg
[~2021-04-06 13:22] MED LIST changes: +FERR325T18 PO; +NITR-65 PO
[2021-04-06 13:59] VITALS: BP 115/67
[2021-04-06 14:06] VITALS: BP 115/67
[2021-04-06 14:20] LABS: BILIRUBIN,URINE NEGATIVE (NEGATIVE); CLARITY,URINE CLEAR; COLOR,URINE YELLOW; GLUCOSE, URINE (UA) NEGATIVE (NEGATIVE); KETONES,URINE NEGATIVE (NEGATIVE); LEUKOCYTE ESTERASE ,URINE TRACE (NEGATIVE); NITRITE,URINE NEGATIVE (NEGATIVE); PROTEIN,URINE NEGATIVE (NEGATIVE)
[2021-04-06 14:42] LABS: BACTERIA,URINE FEW /HPF; WBC,URINE RARE /HPF
[2021-04-06 15:35] VITALS: BP 115/67
--- NOTE | 2021-04-07 08:17 | Physician Query-Final Dx ---
Clinic Account Progress/Dx Physician Query: Please give diagnosis Please include # weeks gestation Date of Service Apr 06, 2021 at 13:22 MOLLY,MayApr 07, 2021 08:17
== END 2021-04-06 15:35 | disposition home or self-care (01) ==
LOC: WSo 13:22 → LDRP 13:25 → WSo 15:35
PROVIDERS: ATTEND Family Medicine
DX: O47.9 False labor, unspecified (principal); Z3A.00 Weeks of gestation of pregnancy not specified
CPT/HCPCS: 81000; 87088

== ENCOUNTER 2021-04-11 08:54 | Inpatient (IN) | payer MEDICAID ==
[2021-04-11] VITALS (11 sets, daily range): BP systolic 120–180; BP diastolic 67–111
[2021-04-11] MEDS ORDERED: OXYTOCIN (PITOCIN) 10 UNIT/ML VIAL ONE (09:02)
[2021-04-11] MEDS ORDERED: OXYTOCIN (PITOCIN) 10 UNIT/ML VIAL IM ONE (09:07)
--- NOTE | 2021-04-11 09:54 | History & Physical-OB ---
OB - Chief Complaint & HPI Date/Time Date of Admission: Date of Admission: Date seen by a Provider: Apr 11, 2021 Time Seen by a Provider: 09:40 Chief Complaint/History OB-Reason for Admission/Chief: Onset of Labor Expected Date of Delivery: Apr 25, 2021 Gestational Age in Weeks: 38 Gestational Age in Days: 0 Admission Nurse Assessment Rev: Yes History of Labs B pos, Brenda screen, Rubella immune, Group B strep negative Allergies and Home Medications Allergies Coded Allergies: sertraline (Verified Allergy, Mild, 09/19/18) swelling vancomycin (Unverified Allergy, Mild, HIVES, 08/08/14) prednisone (Unverified Allergy, Unknown, 01/19/14) red dye (Verified Allergy, Unknown, 01/19/14) Patient Home Medication List Home Medication List Reviewed: Yes Ferrous Sulfate (Ferrous Sulfate) 325 Mg Tablet, 325 MG PO DAILY, (Reported) Entered as Reported by: TRISTON KEARNEY on 03/17/21 1048 Axo170/Iron Fumarate/FA/Dss ( 19 Tablet) 1 Each Tablet, 1 EACH PO DAILY, (Reported) Entered as Reported by: ORVILLE MARX on 08/30/181946 Discontinued Medications Nitrofurantoin Monohyd/M-Cryst (Macrobid 100 mg Capsule) 100 Mg Capsule, 1 TAB PO BID Discontinued Reason: No Longer Taking Prescribed by: TRISTON KEARNEY on 03/17/21 1046 OB - History Hx of Present Care: Yes Ultrasounds: Normal mid trimester US Obstetrical Complications: None Medical Complications: None Obstetrical History Hx Multiple Gestation: No Hx Stillbirth: No Hx Complication: No Hx Induced Hypertens: No Hx Maternal Gestational Diabet: No Delivery History Hx Dystocia: No Hx Large For Gestational Age I: No Hx Small for Gestational Age I: No Hx Section: No Hx Vaginal Delivery Post C-Sec: No Hx Blood Disorders: No Adverse Rxn to Tranfusion: No Patient Past Medical History Past medical history 1. Depression 2. Anxiety 3. H/O suicide attempt/self injury Past surgical history 1. Tonsillectomy 2. Bilateral myringotomies Social History/Family History 2nd Hand Smoke Exposure: No Immunizations Hepatitis A: Yes Hepatitis B: Yes Tetanus Booster (TDap): Less than 5yrs OB - Admission Exam Physical Exam HEENT: Moist Membranes Heart: Rhythm Normal Lungs: Clear Abdomen: Gravid Contractions on Admission: None (she had already delivered on route to women's service floor) OB - Assessment/Plan/Diagnosis Assessment Assessment: active labor (Delivered at 38 weeks) Admission Dx 1. Intrauterine at term 38 weeks Admission Status: Inpatient Order (span 2 midnights) Reason for Inpatient Admission: Labor and delivery care Plan Other Plan 1. Admitted to women services for S/P care -GBS status at 36 weeks negative FRANCESCA SPARROW MD Apr 11, 2021 09:54
--- NOTE | 2021-04-11 09:56 | OB Labor & Delivery Record ---
L&D History Date of Service Date of Service: Apr 11, 2021 History Expected Date of Delivery: Apr 27, 2021 Gestational Age in Weeks: 38 Complications Events: Routine care Operative Indications (Cesarea: N/A-Vaginal Delivery Intrapartal Events: None Other Complications Delivery occurred upon arrival on women services. L&D Stage1 Stage One Onset of Labor - Date: Apr 11, 2021 Onset of Labor - Time: 06:00 Monitors and Tracing Monitor Mode: External Presentation: Vertex Signs of Distress by FHT Signs of Distress no Rupture of Membranes Spontaneous Ruture of Membrane: Yes Amniotic Membrane Rupture Time: 06:00 L&D Stage2 Stage Two Stage II Date: Apr 11, 2021 Stage II Time: 08:56 Signs of Distress by FHT Signs of Distress no Cord Descript/Complications Cord Vessel Description: 3 Vessels Delivery Type Delivery Method: Spontaneous Vaginal Episiotomy/Perineal Laceration Laceraction(s)/Extensions: No Condition of Delivery 1 minute Comment: 8 5 minute Comment: 9 Condition of Infant Exam: No Observed Abnormalities Resuscitation Resuscitation: N/A - Spontaneous Resp L&D Stage3 Stage Three Stage III Date: Apr 11, 2021 Stage III Time: 09:00 Placenta Delivery Placenta Delivery: Spontaneous Delivery Summary Summary Estimated blood loss (mL): 150 Condition of Delivery Post Hemorrhage: No FRANCESCA SPARROW MD Apr 11, 2021 09:56
[2021-04-11] MEDS ORDERED: BENZOCAINE/MENTHOL (DERMOPLAST) 56 ML CAN TP PRN (10:00)
[2021-04-11] MEDS ORDERED: TETANUS,DIPTH,PERTUSS P/F (BOOSTRIX) 0.5 ML VIAL IM ONE (10:00)
[2021-04-11] MEDS ORDERED: NALOXONE 0.4 MG/ML 1 ML (NARCAN) VIAL IV PRN (10:00)
[2021-04-11] MEDS ORDERED: WITCH HAZEL(TUCKS) 40 EA JAR TOP PRN (10:00)
[2021-04-11] MEDS ORDERED: ACETAMINOPHEN 500 MG TAB (TYLENOL) PO SCH (12:00)
[2021-04-11] MEDS ORDERED: IBUPROFEN 600 MG (MOTRIN) TAB PO SCH (12:00)
[2021-04-11] MEDS ORDERED: CATHETER FLUSH 10 ML SYR IV SCH (14:00)
[2021-04-11] MEDS: ACETAMINOPHEN 500 MG TAB (TYLENOL) PO SCH ×2 (16:25→21:29)
[2021-04-11] MEDS ORDERED: FLU QUADRIvalent (3YOA+) 60 mcg/0.5 ml 2021-22(AFLURIA) IM ONE (17:00)
[2021-04-11] MEDS: IBUPROFEN 600 MG (MOTRIN) TAB PO SCH (18:24)
[2021-04-11] MEDS ORDERED: DOCUSATE SODIUM 100 MG (COLACE) CAP PO SCH (21:00)
[2021-04-12] MEDS: IBUPROFEN 600 MG (MOTRIN) TAB PO SCH ×2 (02:21→11:52)
[2021-04-12 04:41] VITALS: BP 140/81
[2021-04-12] MEDS: ACETAMINOPHEN 500 MG TAB (TYLENOL) PO SCH ×2 (05:56→09:54)
[2021-04-12 06:26] LABS: BASOPHILS % (AUTO) 1 % (0-10); EOSINOPHILS # (AUTO) 0.1 10^3/uL (0.0-0.3); EOSINOPHILS % (AUTO) 1 % (0-10); HEMATOCRIT 27 % (35-52); HEMOGLOBIN 8.7 g/dL (11.5-16.0); LYMPHOCYTES # (AUTO) 2.2 10^3/uL (1.0-4.0); LYMPHOCYTES % (AUTO) 27 % (12-44); MEAN CORPUSCULAR HEMOGLOBIN 30 pg (25-34); MEAN CORPUSCULAR HGB CONC 32 g/dL (32-36); MEAN CORPUSCULAR VOLUME 93 fL (80-99); MEAN PLATELET VOLUME 12.2 fL (9.0-12.2); MONOCYTES # (AUTO) 0.6 10^3/uL (0.0-1.0); MONOCYTES % (AUTO) 7 % (0-12); NEUTROPHILS # (AUTO) 5.2 10^3/uL (1.8-7.8); NEUTROPHILS % (AUTO) 64 % (42-75); PLATELET COUNT 155 10^3/uL (130-400); WHITE BLOOD COUNT 8.2 10^3/uL (4.3-11.0)
--- NOTE | 2021-04-12 07:34 | Discharge Summary ---
Diagnosis/Chief Complaint Date of Admission Apr 11, 2021 at 08:55 Date of Discharge Admission Diagnosis Admission Diagnosis 1. IUP at 38 weeks gestation Discharge Diagnosis 1. IUP at 38 weeks gestation Chief Complaint/HPI Chief Complaint/HPI 25-year-old presents to L&D after noting her water break on the morning of admission at approximately 06 30. Her EDC is noted to be April 25, 2021. Her GBS status is negative Discharge Summary-OBS Procedures 1. Spontaneous vaginal delivery Discharge Physical Examination Allergies: Coded Allergies: sertraline (Verified Allergy, Mild, 09/19/18) swelling vancomycin (Unverified Allergy, Mild, HIVES, 08/08/14) prednisone (Unverified Allergy, Unknown, 01/19/14) red dye (Verified Allergy, Unknown, 01/19/14) Vitals & I&Os Vital Sign - Last 12Hours Date Time Temp Pulse Resp B/P (MAP) Pulse Ox O2 Delivery O2 Flow Rate FiO2 04/12/21 04:41 36.8 81 16 140/81 (100) 99 Room Air General Appearance: No Acute Distress Respiratory: Clear to Auscultation Cardiovascular: Regular Rate Abdominal: Soft (with uterus firm) Hospital Course Labs Laboratory Tests 04/12/21 05:23: White Blood Count 8.2, Red Blood Count 2.95L, Hemoglobin 8.7L, Hematocrit 27L, Mean Corpuscular Volume 93, Mean Corpuscular Hemoglobin 30, Mean Corpuscular Hemoglobin Concent 32, Red Cell Distribution Width 12.9, Platelet Count 155, Mean Platelet Volume 12.2, Immature Granulocyte % (Auto) 0, Neutrophils (%) (Auto) 64, Lymphocytes (%) (Auto) 27, Monocytes (%) (Auto) 7, Eosinophils (%) (Auto) 1, Basophils (%) (Auto) 1, Neutrophils # (Auto) 5.2, Lymphocytes # (Auto) 2.2, Monocytes # (Auto) 0.6, Eosinophils # (Auto) 0.1, Basophils # (Auto) 0.0, Immature Granulocyte # (Auto) 0.0 Discharge Instructions to patient/family Please see electronic discharge instructions given to patient. Discharge Medications Reviewed and agree with Discharge Medication list on patient's Discharge Instruction sheet FRANCESCA SPARROW MD Apr 12, 2021 07:34
--- NOTE | 2021-04-12 07:35 | Discharge Inst-Women's Service ---
Discharge Inst-Women's Serv Depart Medication/Instructions New, Converted or Re-Newed RX: Other Problems Reviewed?: Yes Consults/Follow Up Additional Follow Up: Yes (Dr Sparrow in 6 weeks at [facility]) Activity Driving Instructions: No Driving for 1 Week Nothing Inside Vagina: No [place] (for 6 weeks) Diet Discharge Diet: Regular Diet Return to The Hospital For: as below Symptoms to Report to : Swelling Increased, Bleeding Excessive, Fever Over 101 Degrees F, Vaginal Discharge Foul For Any Problems or Questions: Contact Your Physician FRANCESCA SPARROW MD Apr 12, 2021 07:35
[2021-04-12 09:55] VITALS: BP 136/76
== END 2021-04-12 13:15 | disposition home or self-care (01) | DRG 807 ==
LOC: WSo 08:54 → LDRP 08:55 → WSo 08:58 → LDRP 11:00
PROVIDERS: ADMIT Family Medicine; ATTEND Family Medicine
PROC: 10E0XZZ Delivery of Products of Conception, External Approach (ICD-10-PCS; principal; 2021-04-11)
DX: O99.344 Other mental disorders complicating childbirth (principal); Z37.0 Single live birth; Z3A.38 38 weeks gestation of pregnancy; F41.9 Anxiety disorder, unspecified; F32.A Depression, unspecified
CPT/HCPCS: 36415; 85025; 99212